=== PATIENT | male | born 1950 | race Hispanic/Latino ===

== ENCOUNTER 2017-05-26 22:44 | Inpatient (IN) | payer OTHER ==
[~2017-05-26] VITALS: Ht 175.3 cm; Wt 93.4 kg
[~2017-05-26 22:44] MED LIST: ASPIR 8181 MG PO; ATORVASTATIN CA80 MG PO; BACTRIM DS TAB1 EACH PO; CARVEDILOL6.25 MG PO; CEPHALEXIN500 MG PO; CIPRO500 MG PO; CLINDAMYCIN HC150 MG PO; CLOPIDOGREL75 MG PO; FAMOTIDINE20 MG PO; FERROUS SULFAT325 MG PO; FLOMAX0.4 MG PO; FUROSEMIDE20 MG PO; GABAPENTIN100 MG PO; HYDRALAZINE HCL10 MG PO; ISOSORBIDE MONO30 MG PO; LANTUS100 UNITS/ SQ; LEVAQUIN500 MG PO; LISINOPRIL20 MG PO; MECLIZINE HCL12.5 MG PO; METOLAZONE5 MG PO; NITROSTAT0.4 MG SL; NOVOLIN R100 UNIT/1 SQ; PENTOXIFYLLINE400 MG PO; POTASSIUM CHLO10 ME1 PO; TYLENOL WITH C1 EACH PO; VITAMIN D5000 UNIT PO; ZAROXOLYN PO; ZESTRIL20 MG PO
--- OUTSIDE RECORDS SUMMARY | 2017-05-26 22:49 | XMS REPORT ---
Author Author [facility] Address Unknown Phone Unavailable Care Team Providers Care Public Records Officer Name Role Phone ANABELL MASON Unavailable Unavailable Problems This patient has no known problems. Allergies, Adverse Reactions, Alerts This patient has no known allergies or adverse reactions. Medications This patient has no known medications. Results Test Description Test Time Test Comments Text Results Atomic Results Result Comments CT BRAIN WO [place] [address] Patient Name: EDWIGE HORVATH MR #: [id number] : 1950 Age/Sex: 66/M Req # : [id number] [facility] Physician: Ordered by: ANABELL MASON MD Report #: [id number] Location: ER Room/Bed: Procedure: [id number] CT/CT BRAIN WO Exam Date: Exam Time: REPORT STATUS: Signed History:Hyperglycemia, altered mental status Comparison studies:None Technique: Axial images were obtained from the skull base to the vertex. Coronal and sagittal images reconstructed from the axial data. Intravenous contrast: None Findings: Scalp/skull: No abnormalities. Extra-axial spaces: No masses. No fluid collections. Brain sulci: Mildly prominent. Ventricles: Mild compensatory dilatation. No hydrocephalus. Parenchyma: A punctate chronic lacunar insult is centered in the left lia.. No masses, hemorrhage, acute or chronic cortical vascular insults. Sellar/suprasellar region: No abnormalities. Craniocervical junction: Patent foramen magnum. No Chiari one malformation. Incidental findings: Subtle atherosclerotic calcifications in the carotid siphons and left vertebral artery. Subtle mucosal thickening in the ethmoid air cells Impression: No acute abnormalities. Chronic findings: 1. Mild generalized volume loss. 2. Punctate lacunar insult in the left lia. Signed by: Dr. Niraj Jacome M.D. on 03/04/2017 11:10 PM Dictated By: NIRAJ JACOME MD, MD 09 Transcribed By: DEMETRIO on 03/04/172309 COPY TO: ANABELL MASON MD CHEST SINGLE (PORTABLE) [place] [address] Patient Name: EDWIGE HORVATH MR #: [id number] : 1950 Age/Sex: 66/M Req #: [id number] Adm Physician: Ordered by: GODFREY GUILLAUME Report #: [id number] Location: ER Room/Bed: Procedure: [id number] DX/CHEST SINGLE (PORTABLE) Exam Date: 03/04/17 Exam Time: 2019 REPORT STATUS: Signed EXAM: CHEST SINGLE (PORTABLE), AP 1 view DATE: 03/04/2017 7:58 PM Time stamp on exam: 2015 hours INDICATION: Cough, shortness of breath COMPARISON: None FINDINGS: LINES/TUBES: None LUNGS: No consolidations or edema. PLEURA: No effusions or pneumothorax. HEART AND MEDIASTINUM: Stable mild cardiac enlargement. Stable prominence of the right central pulmonary arteries. BONES AND SOFT TISSUES: No acute findings. IMPRESSION: No acute thoracic abnormality. Signed by: Dr. Madison Stallings M.D. on 03/04/2017 8:38 PM Dictated By: MADISON STALLINGS MD 37 Transcribed By: DEMETRIO on 2037 COPY TO: GODFREY GUILLAUME
[2017-05-26] MEDS ORDERED: DIATRIZOATE MEGL/DIATRIZOA SOD 30 ML BTL PO ONE (23:23)
[2017-05-27 00:06] LABS: BASOPHILS % 0.6 % (0.0-1.0); EOSINOPHILS # (AUTO) 0.2 (0.0-0.4); EOSINOPHILS % 2.4 % (0.0-6.0); HEMATOCRIT 29.5 % (38.2-49.6); HEMOGLOBIN 9.5 g/dL (14.0-18.0); LYMPHOCYTES # (AUTO) 0.9 (1.0-3.2); LYMPHOCYTES % 13.8 % (18.0-39.1); MEAN CORPUSCULAR HEMOGLOBIN 31.1 pg (28-32); MEAN CORPUSCULAR HGB CONC 32.2 g/dL (31-35); MEAN CORPUSCULAR VOLUME 96.7 fL (81-99); MONOCYTES # (AUTO) 0.6 (0.2-0.8); MONOCYTES % 9.1 % (4.4-11.3); NEUTROPHILS # (AUTO) 4.7 (2.1-6.9); NEUTROPHILS % 73.8 % (38.7-80.0); PLATELET COUNT 173 x10e3/uL (140-360); RED BLOOD COUNT 3.05 x10e6/uL (4.3-5.7); RED CELL DISTRIBUTION WIDTH 14.9 % (11.7-14.4)
[2017-05-27 00:21] LABS: ALBUMIN 3.1 g/dL (3.5-5.0); ALBUMIN/GLOBULIN RATIO 0.8 (0.8-2.0); ANION GAP 11.5 mmol/L (8-16); CALCIUM 8.3 mg/dL (8.4-10.2); CREATININE, SERUM 3.53 mg/dL (0.72-1.25)
[2017-05-27 00:23] LABS: POTASSIUM 5.5 mmol/L (3.5-5.1)
--- NOTE | 2017-05-27 01:13 | Diagnostic Imaging Report ---
EXAM: CT ABDOMEN/PELVIS WO DATE: 05/26/2017 11:12 PM INDICATION: Left-sided abdominal pain COMPARISON: 04/01/2015 TECHNIQUE: The abdomen and pelvis were scanned using a multidetector helical scanner. Coronal and sagittal reformations were obtained. Routine protocol performed. IV Contrast: None Oral contrast was given FINDINGS: Lack of IV contrast decreases sensitivity in evaluating abdominal and pelvic organs. LOWER THORAX: Cardiomegaly with coronary artery disease. Small bilateral effusions. LIVER/BILIARY: No masses. No ductal dilatation. GALLBLADDER: Contracted gallbladder with markedly thickened edematous wall, nonspecific. SPLEEN: Unremarkable PANCREAS: Unremarkable ADRENALS: Stable size of 1.1 cm right adrenal nodule, though with indeterminate attenuation on today's study (HU 27). KIDNEYS: No hydronephrosis. Extensive vascular calcifications. GI TRACT: Postsurgical changes status post right hemicolectomy without evidence of obstruction.. VESSELS: Diffuse vascular calcifications. PERITONEUM/RETROPERITONEUM: Mild abdominal and pelvic free fluid. LYMPH NODES: No lymphadenopathy REPRODUCTIVE ORGANS/BLADDER: Marked bladder wall thickening, which appears increased from prior. SOFT TISSUES: Unremarkable BONES: Scattered degenerative changes, worse at L5-S1. IMPRESSION: 1. No acute abnormality to explain left abdominal pain. 2. Thickened edematous gallbladder wall, which is nonspecific and may be reactive in the setting of volume status or right heart failure. 3. Marked circumferential bladder wall thickening, which appears increased from prior. Correlate with urinalysis or evidence of cystitis. Signed by: Dr Niya Dougherty MD on 05/27/2017 1:09 AM
[2017-05-27 01:36] LABS: BILIRUBIN,URINE NEGATIVE (NEGATIVE); CLARITY,URINE SL CLOUDY (CLEAR); COLOR,URINE YELLOW (YELLOW); KETONES,URINE NEGATIVE (NEGATIVE); LEUKOCYTE ESTERASE ,URINE TRACE (NEGATIVE); NITRITE,URINE NEGATIVE (NEGATIVE); PROTEIN,URINE DIPSTICK 3+ (NEGATIVE); URINE UROBILINOGEN 0.2 mg/dL (0.2 - 1)
[2017-05-27 01:45] LABS: BACTERIA,URINE FEW /HPF; EPITHELIAL CELLS,URINE FEW /LPF
[2017-05-27] MEDS ORDERED: FAMOTIDINE20 MG PO (02:56)
[2017-05-27] MEDS ORDERED: CARVEDILOL3.125 MG PO (02:56)
[2017-05-27] MEDS ORDERED: ISOSORBIDE DINI20 MG PO (02:56)
[2017-05-27] MEDS ORDERED: FLOMAX0.4 MG PO (02:56)
[2017-05-27] MEDS ORDERED: DEXTROSE 50% SYRINGE 50 ML IV PRN (03:00)
[2017-05-27] MEDS ORDERED: ONDANSETRON HCL INJ 2 MG/ML VIAL IV PRN ×2 (03:00→11:00)
[2017-05-27] MEDS ORDERED: MORPHINE SULFATE 2 MG/ML SYR IV PRN (03:00)
[2017-05-27] MEDS ORDERED: LACTULOSE SYRUP 20 GM/30 ML UDC PO ONE (03:00)
[2017-05-27] MEDS ORDERED: SOD POLYSTYRENE SULFONATE SUSP 15 GM/60 ML BTL PO ONE (03:00)
[2017-05-27] MEDS ORDERED: SODIUM CHLORIDE FLUSH 10 ML SYR INJ PRN (03:00)
[2017-05-27] MEDS: CEFTRIAXONE SOD 1 GM VIAL IV SCH (03:51)
[2017-05-27] MEDS ORDERED: HYDRALAZINE HCL 25 MG TAB ONE (05:45)
[2017-05-27] MEDS ORDERED: HYDRALAZINE HCL 10 MG TAB PO SCH (06:00)
[2017-05-27] MEDS ORDERED: HYDRALAZINE HCL 10 MG TAB PO PRN (06:00)
[2017-05-27] MEDS: INSULIN REGULAR, HUMAN 100 UNIT/1 ML 3ML VIAL SQ SCH ×4 (08:35→20:44)
[2017-05-27] MEDS: ISOSORBIDE DINITRATE 20 MG TAB PO SCH (08:52)
[2017-05-27] MEDS: CLOPIDOGREL BISULFATE 75 MG TAB PO SCH (08:52)
[2017-05-27] MEDS: FAMOTIDINE 20 MG TAB PO SCH ×2 (08:52→17:40)
[2017-05-27] MEDS: TAMSULOSIN HCL 0.4 MG CAP PO SCH (08:52)
[2017-05-27] MEDS: ATORVASTATIN 40 MG TAB PO SCH (08:52)
[2017-05-27] MEDS: ASPIRIN 81 MG CHEW TAB PO SCH (08:52)
[2017-05-27] MEDS: FUROSEMIDE 20 MG TAB PO SCH ×2 (08:52→17:40)
[2017-05-27] MEDS ORDERED: ACETAMINOPHEN 325 MG TAB PO PRN (11:00)
[2017-05-27] MEDS ORDERED: MECLIZINE HCL 12.5 MG TAB PO PRN (11:00)
[2017-05-27] MEDS ORDERED: MELATONIN 5 MG TABLET PO PRN (11:00)
[2017-05-27] MEDS ORDERED: FUROSEMIDE INJ 10 MG/ML 4 ML VIAL IV ONE (11:15)
[2017-05-27] MEDS ORDERED: SCOPOLAMINE 1.5 MG PATCH TOP SCH (11:30)
[2017-05-27] MEDS: SODIUM CHLORIDE 0.9% 1000ML 1,000 ML IV SCH ×2 (12:14→23:30)
--- NOTE | 2017-05-27 12:35 | History and Physical ---
DATE OF : 1950 CHIEF COMPLAINT: Abdominal pain, positive for flatus. HPI: This is a 67-year-old male morbidly obese, type 2 diabetic, hypertensive, medical noncompliant, who comes into the ED after recently discharged from [place] due to dizziness, comes in last night after eating dinner, complains of abdominal distention and passing gas. Patient reports about 4 hours after his abdominal pain he began to have some diarrhea with associated nausea and vomited once. He denies any fever at home. Denies any recent sickness, cough, and congestion. Patient also reports having underlying CKD which he follows up with Dr. Nugent, his boxing machine operator. Patient seen and evaluated at bedside. Patient ate his breakfast with no issues. He denies any abdominal pain or any diarrhea, nausea, or vomiting. REVIEW OF SYSTEMS: Pertinent positives: Abdominal pain, nausea, vomiting, positive for flatus. Pertinent negatives: Denies any chest pain, palpitations, dysuria, hematuria, frequency, urgency, lightheadedness, dizziness, headache, shortness of breath, fever, musculoskeletal pain, or any other complaints. The rest of the 14-point review of systems have been reviewed with the patient and are negative. ALLERGIES: NO KNOWN DRUG ALLERGIES. HOME MEDICATIONS: Lipitor 80 mg daily, Coreg 3.125 mg p.o. at bedtime, aspirin 81 mg daily, Plavix 75 mg daily, Pepcid 20 mg p.o. b.i.d., Lasix 20 mg p.o. b.i.d., hydralazine 50 mg p.o. t.i.d., Levemir 34 units subQ at night, and isosorbide dinitrate 30 mg p.o. daily. PAST MEDICAL HISTORY: Hypertension, hyperlipidemia, type 2 diabetes, and CKD stage 4 for which he follows up with Dr. Nugent, his primary boxing machine operator. SURGICAL HISTORY: None. FAMILY HISTORY: Hypertension and diabetes. SOCIAL HISTORY: No drugs. No alcohol. Does not smoke. Good social support. Retired. VITAL SIGNS: Temperature 97.9, pulse 57, respiratory rate 16, blood pressure 159/76, and pulse ox 100% on room air. LAB FINDINGS: White count of 6.3, hemoglobin 9.5, hematocrit 30, and platelets of 173. Chemistry: Sodium 135, potassium 5.5, chloride is 103, bicarb 26, anion gap of 11, BUN 56, creatinine is 3.5, GFR 17, glucose 221, and calcium 8.3. LFTs normal. Total protein 7.2, albumin 3.1, lipase 29, and amylase 82. Urinalysis: Slightly cloudy 3+ protein, 1+ glucose, negative nitrite, and trace leukocyte esterase. Microbiology: Urine culture pending. IMAGING STUDIES: CT abdomen and pelvis shows no acute abnormality. Thickened, edematous gallbladder wall, but very nonspecific, shows no inflammation. Patient does not complain of right upper quadrant abdominal pain. LFTs are normal. There is some questionable concern of cystitis. PHYSICAL EXAMINATION GENERAL: Not in acute distress. Alert and oriented x3. Cooperative on exam. HEENT: Head is normocephalic and atraumatic. Eyes: Pupils are equal, round, and reactive to light bilaterally. The extraocular movements are intact bilaterally. NECK: Supple. Good range of motion. Throat: No evidence of any erythema or exudates in the posterior pharynx. Has poor dentition. PULMONARY: Clear to auscultation bilaterally. No wheezing, no rales, no rhonchi, and no crackles appreciated. CARDIOVASCULAR: Positive S1 and S2. No murmurs, rubs or gallops appreciated. ABDOMEN: Soft, nondistended. Nontender to palpation. Bowel sounds are present. MUSCULOSKELETAL: Strength is 5/5 throughout. No evidence of any musculoskeletal deficit on examination. No weakness appreciated. NEUROLOGIC: Cranial nerves II through XII are grossly intact. No evidence of any neurological deficit on exam. SKIN: Intact. Warm to touch. Good capillary refill. PSYCHIATRIC: Normal affect and mood. EXTREMITIES: No edema. Has good range of motion throughout. ASSESSMENT AND PLAN 1. Abdominal pain with associated nausea, vomiting, and diarrhea, likely viral gastroenteritis -- currently symptoms are all resolved. Put on pain control. CT abdomen and pelvis reviewed. No acute findings seen. IV fluids, pain control, and regular renal diet. 2. Chronic kidney disease stage 4 with mild hyperkalemia -- Lasix 40 mg IV x1, and lactulose, his baseline creatinine is around 3 to 3.5. 3. Possible urinary tract infection -- Urinalysis is not consistent with urinary tract infection, but has been started with IV antibiotics by the ER physician. Urine culture no growth today at this time. We will continue to monitor. 4. Anemia with chronic kidney disease -- his hemoglobin 9.7, it is stable. We will repeat labs in the morning. 5. Type 2 diabetes. -Long acting Levemir and insulin sliding scale. 6. Prophylaxis: heparin. 7. Fluids, electrolytes and nutrients: Low dose IV fluids. Diabetic diet. 8. Disposition -- Make an observation. Renal has been consulted for his underlying CKD by the ER physician. 9. Discharge planning: Likely discharge home tomorrow. Patient is stable, doing well with no other complaints, tolerating diet. Job#: [id number] VAS
[2017-05-27 16:10] VITALS: BP 159/76
[2017-05-27 16:12] VITALS: BP 159/76
[2017-05-27 16:38] VITALS: BP 143/80
[2017-05-27 19:00] VITALS: BP 173/82
[2017-05-27 20:00] VITALS: BP 173/82
[2017-05-27] MEDS: HYDRALAZINE HCL 25 MG TAB PO SCH (20:45)
[2017-05-27] MEDS ORDERED: INSULIN DETEMIR 100 UNIT/ML PEN SQ SCH (21:00)
[2017-05-27] MEDS ORDERED: CARVEDILOL 3.125 MG TAB PO SCH (21:00)
[2017-05-28] VITALS: BP 135/69
[2017-05-28] MEDS: CEFTRIAXONE SOD 1 GM VIAL IV SCH (03:03)
[2017-05-28 04:00] VITALS: BP 151/72
[2017-05-28] MEDS: HYDRALAZINE HCL 25 MG TAB PO SCH (05:12)
[2017-05-28 05:35] LABS: BASOPHILS % 0.5 % (0.0-1.0); EOSINOPHILS # (AUTO) 0.1 (0.0-0.4); EOSINOPHILS % 1.9 % (0.0-6.0); HEMATOCRIT 27.2 % (38.2-49.6); HEMOGLOBIN 8.8 g/dL (14.0-18.0); LYMPHOCYTES # (AUTO) 0.5 (1.0-3.2); LYMPHOCYTES % 8.6 % (18.0-39.1); MEAN CORPUSCULAR HEMOGLOBIN 31.1 pg (28-32); MEAN CORPUSCULAR HGB CONC 32.4 g/dL (31-35); MEAN CORPUSCULAR VOLUME 96.1 fL (81-99); MONOCYTES # (AUTO) 0.5 (0.2-0.8); MONOCYTES % 7.9 % (4.4-11.3); NEUTROPHILS # (AUTO) 4.6 (2.1-6.9); NEUTROPHILS % 80.9 % (38.7-80.0); PLATELET COUNT 154 x10e3/uL (140-360); RED BLOOD COUNT 2.83 x10e6/uL (4.3-5.7); RED CELL DISTRIBUTION WIDTH 14.6 % (11.7-14.4)
[2017-05-28 06:05] LABS: ALBUMIN 2.9 g/dL (3.5-5.0); ALBUMIN/GLOBULIN RATIO 0.8 (0.8-2.0); CALCIUM 8.1 mg/dL (8.4-10.2); CREATININE, SERUM 2.93 mg/dL (0.72-1.25)
[2017-05-28] MEDS: INSULIN REGULAR, HUMAN 100 UNIT/1 ML 3ML VIAL SQ SCH (07:30)
[2017-05-28 07:56] VITALS: BP 149/65
[2017-05-28] MEDS: ASPIRIN 81 MG CHEW TAB PO SCH (08:46)
[2017-05-28] MEDS: TAMSULOSIN HCL 0.4 MG CAP PO SCH (08:46)
[2017-05-28] MEDS: ISOSORBIDE DINITRATE 20 MG TAB PO SCH (08:47)
[2017-05-28] MEDS: FUROSEMIDE 20 MG TAB PO SCH (08:47)
[2017-05-28] MEDS: ATORVASTATIN 40 MG TAB PO SCH (08:47)
[2017-05-28] MEDS: FAMOTIDINE 20 MG TAB PO SCH (08:47)
[2017-05-28] MEDS: CLOPIDOGREL BISULFATE 75 MG TAB PO SCH (08:47)
[2017-05-28 08:55] VITALS: BP 149/65
[2017-05-28] MEDS ORDERED: CEFTRIAXONE SOD 1 GM VIAL IM ONE (09:15)
[2017-05-28] MEDS ORDERED: HYDRALAZINE HCL 25 MG TAB PO PRN (09:15)
[2017-05-28] MEDS ORDERED: LANTUS 3ML100 UNITS/ SQ (11:23)
[2017-05-28 12:06] VITALS: BP 129/59
[2017-05-28] MEDS ORDERED: LANTUS 3ML100 UNITS/ ×2 (12:29→12:30)
--- NOTE | 2017-05-28 14:18 | Consultation ---
DATE OF CONSULTATION: HISTORY OF PRESENT ILLNESS: A 67-year-old [place] gentleman well known to our nephrology service. Has history of CKD-3, hypertension, coronary artery disease, congestive heart failure, BPH, hypertension. Presented with possible diarrhea and abdominal discomfort. States his stomach was bloating. He thought he was going to have the , currently laying supine. No apparent distress. Hypertensive with the blood pressure of 178/86. Pulse rate 80. Respiratory rate 16. Head and neck, cornea clear. Mucosa dry. Lungs relatively clear. Heart, S1, S2 audible. Abdomen, otherwise soft, nontender. Lower extremities no edema. Laboratory test earlier shows a potassium 5.5. Creatinine was 3.5. Patient was given. Kayexalate lactulose. Repeat potassium shows definite improvement with a potassium of 4.3. Bicarbonate 26. Creatinine 3.5. Hemoglobin 9.5. CURRENT MEDICATIONS 1. Carvedilol 3.125 once a day. 2. Isosorbide 30 mg daily. 3. Ondansetron. 4. Plavix. 5. Flomax. 6. Scopolamine. 7. Meclizine. 8. Atorvastatin. 9. Hydralazine 50 mg p.o. q. 8. 10. Furosemide 40 b.i.d. 11. Hydralazine. 12. Melatonin 5 mg bedtime. 13. Ceftriaxone 1 g IV q.24. EXAM GENERAL: Awake, alert, laying supine. No apparent distress. VITALS: Blood pressure as above. HEAD AND NECK: Cornea clear. LUNGS: Relatively clear. HEART: S1, S2 audible. ABDOMEN: Otherwise soft, nontender. LOWER EXTREMITY EXAMINATION: Shows no edema. IMPRESSIONS 1. Underlying chronic kidney disease. 2. Hypertension. 3. Prior cerebrovascular accident. 4. Multiple comorbidities. 5. Has a relatively poor ejection fraction of 20%, has had the AICD. Currently no overt evidence of congestive heart failure. 6. Has prior toe amputation, prior stents and prior prostate surgery and partial colon resection. Please see orders. Job#: [id number] CQ
--- NOTE | 2017-05-28 17:32 | Discharge Summary ---
FINAL DISCHARGE DIAGNOSIS: 1. Abdominal pain likely due to underlying viral gastroenteritis. 2. Nausea, vomiting, diarrhea due to viral gastroenteritis. 3. Chronic kidney disease stage 4. 4. Mild hyperkalemia. 5. Urinary tract infection. 6. Anemia of chronic disease. 7. Type-2 diabetes. CONSULTANTS: None. VITAL SIGNS: Temperature is 97.3, pulse 57, respiratory rate is 18, blood pressure 149/65, pulse ox is 100% on room air. LAB FINDINGS: Show white count 5.7, hemoglobin 8.8, hematocrit is 27, platelets of 154. Chemistry: Sodium 140, potassium is 4, chloride 105, bicarbonate 25, anion gap of 14, BUN is 50, creatinine is 2.9, glucose is 82. Calcium 8.1. LFTs were normal. Albumin 2.9, lipase was 29. Urinalysis: 1+ glucose, negative nitrite, trace leukocyte esterase. MICROBIOLOGY: Showed some gram-negative rods, likely all contaminate. IMAGING STUDIES: CT abdomen and pelvis showed no acute abnormality to explain left abdominal pain. Thickened, edematous gallbladder wall which is nonspecific and may be reactive in the setting of volume status of right heart failure. Marked of bladder wall thickening which appears increased from prior. Correlate with urinalysis for possible cystitis. HOSPITAL COURSE: This is a 67-year-old male who came into the ED with complaints of nausea, vomiting, decreased oral intake, as well as abdominal pain. Patient was admitted overnight and monitored very closely. CT imaging results above showed no acute findings. Patient's symptoms resolved. Patient had no more nausea, vomiting or diarrhea. It is presumed that the patient had some viral gastroenteritis, now with improvement. Patient is known to have chronic kidney disease stage 4 with mild hyperkalemia. He was given some fluids as well as some Lasix with much improvement and his potassium was normal prior to discharge home. His baseline creatinine was 3 to 3.5. 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 He also was found possibly to have a UTI, and his urinalysis is consistent likely due to a contaminate, but to his prior history of BPH the patient will be discharged on oral Cipro 500 mg 1 capsule twice daily for 10 days. He needs to follow up with his primary care physician. He also has known anemia of chronic disease. He also has known type-2 diabetes in which his glucose levels were much lower and in which he was adjusted prior to being discharged to home. On the day of discharge, patient was doing well with no other complaints and denies any more abdominal pain. On the day of discharge, vital signs stable, labs reviewed and stable. Patient seen and evaluated and examined thoroughly on the day of discharge with no other complaints. Patient verbalized understanding and agrees with plan of care to follow up accordingly as an outpatient with his primary care physician in one week. DISCHARGE MEDICATIONS: See medicine reconciliation form including Cipro 500 mg 1 capsule p.o. twice daily for 10 days for possible underlying cystitis. DISPOSITION: To home. CONDITION: Stable. FOLLOWUP: With your primary care physician in one week. In the event of any worsening symptoms, patient advised to come back to the ED for further evaluation. Discharge summary took greater than 35 minutes. JAIMIE FREIRE MD Job#: [id number] EV
== END 2017-05-28 12:42 | disposition home or self-care (01) | DRG 392 ==
LOC: ER 22:44 → ERHOLD 05-27 02:48 → IMCU 05-27 13:48
PROVIDERS: ADMIT Internal Medicine; ATTEND Internal Medicine
DX: A08.4 Viral intestinal infection, unspecified (principal); E11.22 Type 2 diabetes mellitus with diabetic chronic kidney disease; I13.0 Hypertensive heart and chronic kidney disease with heart failure and stage 1 through stage 4 chronic kidney disease, or unspecified chronic kidney disease; I50.9 Heart failure, unspecified; N18.4 Chronic kidney disease, stage 4 (severe); N39.0 Urinary tract infection, site not specified; Z79.4 Long term (current) use of insulin; E87.5 Hyperkalemia; E11.40 Type 2 diabetes mellitus with diabetic neuropathy, unspecified; D63.1 Anemia in chronic kidney disease; N40.0 Benign prostatic hyperplasia without lower urinary tract symptoms; Z86.73 Personal history of transient ischemic attack (TIA), and cerebral infarction without residual deficits; Z95.810 Presence of automatic (implantable) cardiac defibrillator; Z95.5 Presence of coronary angioplasty implant and graft; Z91.19 Patient's noncompliance with other medical treatment and regimen; E66.01 Morbid (severe) obesity due to excess calories; Z79.82 Long term (current) use of aspirin; Z79.02 Long term (current) use of antithrombotics/antiplatelets; Z68.30 Body mass index [BMI] 30.0-30.9, adult
CPT/HCPCS: 36415; 74176; 80053; 81001; 82150; 82948; 83690; 84132; 85025; 87086; 96374; 99284; J0696; J1940; J2270; J7030

== ENCOUNTER 2018-07-26 20:17 | Emergency (ER) | payer OTHER ==
[~2018-07-26] VITALS: Ht 175.3 cm; Wt 93.4 kg
[~2018-07-26 20:17] MED LIST changes: +CARVEDILOL3.125 MG PO; +ISOSORBIDE DINI20 MG PO; +LANTUS 3ML100 UNITS/; +LANTUS 3ML100 UNITS/ SQ
--- OUTSIDE RECORDS SUMMARY | 2018-07-26 20:22 | XMS REPORT | Continuity of Care Document ---
Author Author [facility] Interface Address Unknown Phone Unavailable Problems Problem Status Onset Date Classification Date Reported Comments Source Acute kidney failure, unspecified 06/17/2017 09/14/2017 [facility] CHAI, GENERALIZED WEAKNESS Active 06/07/2017 [facility] FALL Active 06/07/2017 [facility] STROKE-LIKE SYMPTOMS Active 02/08/2017 [facility] SLURRED SPEECH/ GAIT ABNORMALITY Active 02/08/2017 [facility] 569.89 Active 10/29/2014 [facility] Type 2 diabetes mellitus with hypoglycemia without coma 09/14/2017 [facility] Dehydration 09/14/2017 [facility] Hypertensive chronic kidney disease with stage 1 through stage 4 chronic kidney disease, or unspecified chronic kidney disease 09/14/2017 [facility] Chronic kidney disease, unspecified 09/14/2017 [facility] Type 2 diabetes mellitus with diabetic chronic kidney disease 09/14/2017 [facility] Fall from bed, initial encounter 09/14/2017 [facility] Zoster without complications 09/14/2017 [facility] Hyperlipidemia, unspecified 09/14/2017 [facility] Atherosclerotic heart disease of [place] coronary artery without angina pectoris 09/14/2017 [facility] Personal history of transient ischemic attack , and cerebral infarction without residual deficits 09/14/2017 [facility] Personal history of nicotine dependence 09/14/2017 [facility] alf use of aspirin 09/14/2017 [facility] keno terminal operator use of insulin 09/14/2017 [facility] ACUTE KIDNEY FAILURE, UNSPECIFIED Active [facility] WEAKNESS Active [facility] Medications Medication Details Route Status Patient Instructions Ordering Provider Order Date Source Morphine 2 mg, 1 mL, Route: IVP, Drug form: INJ, Q4H, Dosing Weight 95.597, kg, PRN Pain Score 7-10, Start date: 06/08/17 10:32:00 TICKET COLLECTOR OR USHER, Duration: 30 day, Stop date: 07/08/17 10:31:00 CDTNotes: (Same as:MORPhine Sulfate) Inactive 06/08/2017 [facility] Hydralazine 10 mg, 0.5 mL, Route: IVP, Drug form: INJ, Q4H, Dosing Weight 95.597, kg, PRN Elevated BP, Start date: 06/08/17 10:09:00 TICKET COLLECTOR OR USHER, Duration: 30 day, Stop date: 07/08/17 10:08:00 CDTNotes: (Same as: Joseph perdomo) Push over 5 minutes Inactive 06/08/2017 [facility] Saline Flush 0.9% 10 ml, Route: IVP, Drug Form: INJ, Dosing Weight 95.597, kg, Q12H, Start date: 06/07/17 21:00:00 TICKET COLLECTOR OR USHER, Duration: 30 day, Stop date: 07/07/17 9:00:00 CDTNotes: (Same as: BD Posiflush) No Longer Active 06/08/2017 [facility] atorvastatin 80 mg, 2 tab, Route: PO, Drug form: TAB, Bedtime, Dosing Weight 95.597, kg, Start date: 06/07/17 21:00:00 TICKET COLLECTOR OR USHER, Duration: 30 day, Stop date: 07/06/17 21:00:00 CDTNotes: (Same as: Lipitor) No Longer Active 06/08/2017 [facility] Acyclovir 750 mg, Route: IV, Drug form: PDR/INJ, [id number], Dosing Weight 95.597, kg, Start date: 06/07/17 21:00:00 TICKET COLLECTOR OR USHER, Duration: 7 day, Stop date: 06/13/17 21:00:00 CSTNotes: (Same as: Zovirax) For adult patients only: Round to nearest 50 mg per Medical Staff approval MEDICATION WASTE Product Size: 500 mg Product Wasted: 250 mg No Longer Active 06/08/2017 [facility] Morphine 4 mg, 1 mL, Route: IVP, Drug form: SOLN, Q4H, Dosing Weight 95.597, kg, PRN Pain Score 7-10, Start date: 06/07/17 20:16:00 TICKET COLLECTOR OR USHER, Duration: 30 day, Stop date: 07/07/17 20:15:00 CDTNotes: (Same as:MORPhine Sulfate) No Longer Active 06/08/2017 [facility] heparin 5,000 unit, 1 mL, Route: SUB-Q, Drug form: INJ, Q8H-06, Dosing Weight 95.597, kg, (For patients weighing Notes: porcine heparin No Longer Active 06/07/2017 [facility] valacyclovir 1,000 mg, 2 tab, Route: PO, Drug form: TAB, [id number], Dosing Weight 95.597, kg, Priority: NOW, Start date: 06/07/17 10:47:00 TICKET COLLECTOR OR USHER, Duration: 7 day, Stop date: 06/13/17 10:47:00 CSTNotes: (Same As: Valtrex) Inactive 06/07/2017 [facility] Aspirin 300 MG Rectal Suppository 300 mg, 1 supp, Route: AR, Drug form: SUPP, ONCE, Dosing Weight 95.597, kg, Priority: NOW, Start date: 06/07/17 10:40:00 TICKET COLLECTOR OR USHER, Stop date: 06/07/17 10:40:00 CSTNotes: Refrigerate. Inactive 06/07/2017 [facility] Aspirin 81 MG Enteric Coated Tablet 81 mg, 1 tab, Route: PO, Drug form: ECTAB, Q24H, Dosing Weight 95.597, kg, Start date: 06/07/17 10:00:00 TICKET COLLECTOR OR USHER, Duration: 30 day, Stop date: 07/06/17 10:00:00 CDTNotes: Do not crush or chew. (Same As: Ecotrin) No Longer Active 06/07/2017 [facility] Glucagon 1 mg, Route: IM, Drug form: PDR/INJ, PRN, Dosing Weight 95.597, kg, PRN Blood Glucose Results, Start date: 06/07/17 9:48:00 TICKET COLLECTOR OR USHER, Duration: 30 day, Stop date: 07/07/17 10:47:00 CDT No Longer Active 06/07/2017 [facility] Dextrose 50% Syringe 25 gm, 50 mL, Route: IVP, Drug Form: INJ, Dosing Weight 95.597, kg, PRN, PRN Blood Glucose Results, Start date: 06/07/17 9:48:00 TICKET COLLECTOR OR USHER, Duration: 30 day, Stop date: 07/07/17 10:47:00 CDT No Longer Active 06/07/2017 [facility] Insulin Lispro 4 unit, 0.04 mL, Route: SUB-Q, Drug form: SOLN, Sliding Scale, Dosing Weight 95.597, kg, PRN Blood Glucose Results, Start date: 06/07/17 9:48:00 TICKET COLLECTOR OR USHER, Duration: 30 day, Stop date: 07/07/17 10:47:00 CDTNo naldo: (Same as: Humalog ) Roll in palms of hands gently; Do not shake `vigorously. "Single Patient Use Only " WASTE: F/P - Black; E - Municipal Trash Bin Stable for 28 days at room temperature. Expires in days from Date No Longer Active 06/07/2017 [facility] Saline Flush 0.9% 10 ml, Route: IVP, Drug Form: INJ, Dosing Weight 95.597, kg, PRN, PRN Line Flush, Start date: 06/07/17 9:47:00 TICKET COLLECTOR OR USHER, Duration: 30 day, Stop date: 07/07/17 10:46:00 CDTNotes: (Same as: BD Posiflush) No Longer Active 06/07/2017 [facility] Saline Flush 0.9% 10 ml, Route: IVP, Drug Form: INJ, Dosing Weight 87.5, kg, PRN, PRN Line Flush, Start date: 06/07/17 7:07:00 TICKET COLLECTOR OR USHER, Duration: 30 day, Stop date: 07/07/17 8:06:00 CDTNotes: (Same as: BD Posiflush) No Longer Active 06/07/2017 [facility] Sodium Chloride 0.9% IV 1,000 mL 1,000 mL, Rate: 125 ml/hr, Infuse over: 8 hr, Route: IV, Dosing Weight 87.5 kg, Total Volume: 1,000, Start date: 06/07/17 7:07:00 TICKET COLLECTOR OR USHER, Duration: 30 day, Stop date: 07/07/17 7:06:00 CDT, 2.08, m2 No Longer Active 06/07/2017 [facility] Ondansetron 4 mg, 2 mL, Route: IVP, Drug form: INJ, Q6H, Dosing Weight 87.5, kg, PRN Nausea & Vomiting, Start date: 06/07/17 7:07:00 TICKET COLLECTOR OR USHER, Duration: 30 day, Stop date: 07/07/17 7:06:00 CDTNotes: (Same as: Zofran) MEDICATION WASTE Product Size: 4 mg Product Wasted: ___ mg No Longer Active 06/07/2017 [facility] Acetaminophen 650 mg, 2 tab, Route: PO, Drug form: TAB, Q4H, Dosing Weight 87.5, kg, PRN Pain 1-3/Temp > 100.4 F, Start date: 06/07/17 7:07:00 TICKET COLLECTOR OR USHER, Duration: 30 day, Stop date: 07/07/17 7:06:00 CDTNotes: Do not ex ceed 4 gm/day. (Same as: Tylenol) No Longer Active 06/07/2017 [facility] Sodium Chloride 0.9% IV 1,000 mL 1,000 mL, Rate: 75 ml/hr, Infuse over: 13.3 hr, Route: IV, Dosing Weight 87.5 kg, Total Volume: 1,000, Start date: 06/07/17 6:02:00 TICKET COLLECTOR OR USHER, Duration: 30 day, Stop date: 07/07/17 6:01:00 CDT, 2.08, m2 Inactive 06/07/2017 [facility] Lantus 100 units/mL 25 unit, SUB-Q, Bedtime, # 10 mL, 0 Refill(s), Pharmacy: [facility] [id number] Active 02/11/2017 [facility] pneumococcal 13-valent vaccine 0.5 mL, Route: IM, Drug Form: INJ, Daily, Start date: 02/09/17 9:00:00 CDT, Duration: 1 doses or times, Stop date: 02/09/17 9:00:00 CDTNotes: Shake well prior to use (Same as: Prevnar 13) Inactive 02/09/2017 [facility] metolazone 2.5 mg oral tablet 2.5 mg, 1 tab, Route: PO, Drug form: TAB, BID, Dosing Weight 87.5, kg, Start date: 02/09/17 9:00:00 CDT, Duration: 30 day, Stop date: 03/10/17 17:00:00 CSTNotes: (Same as: Zaroxolyn) No Longer Active 02/09/2017 [facility] lisinopril 20 mg, Route: PO, Drug form: TAB, BID, Dosing Weight 87.5, kg, Start date: 02/09/17 9:00:00 CDT, Duration: 30 day, Stop date: 03/10/17 17:00:00 TICKET COLLECTOR OR USHER Inactive 02/09/2017 [facility] gabapentin 300 mg oral capsule 300 mg, 1 cap, Route: PO, Drug form: CAP, Q12H, Dosing Weight 87.5, kg, Start date: 02/09/17 9:00:00 CDT, Duration: 30 day, Stop date: 03/10/17 21:00:00 CSTNotes: (Same as: Neurontin) No Longer Active 02/09/2017 [facility] influenza virus vaccine, inactivated 0.5 mL, Route: IM, Drug Form: SUSP, Daily, Start date: 02/09/17 9:00:00 CDT, Duration: 1 doses or times, Stop date: 02/09/17 9:00:00 CDTNotes: (Same as: Fluzone Quadrivalent, Fluarix Quadrivalent) For 3 years of age and older (0.5 mL IM) Shake well before use Inactive 02/09/2017 [facility] Humalog 10 unit, 0.1 mL, Route: SUB-Q, Drug form: SOLN, TID-Before Meals, Start date: 02/09/17 7:30:00 CDT, Duration: 30 day, Stop date: 03/10/17 16:30:00 CSTNotes: Roll in palms of hands gently; Do not shake `vigorously. (Same as: Humalog ) "Single Patient Use Only " WASTE: F/P - Black; E - Municipal Trash Bin Stable for 28 days at room temperature. Expires in days from Date No Longer Active 02/09/2017 [facility] NovoLOG 10 unit, Route: SUB-Q, Drug form: SOLN, TID-Before Meals, Dosing Weight 87.5, kg, Start date: 02/09/17 7:30:00 CDT, Duration: 30 day, Stop date: 03/10/17 16:30:00 TICKET COLLECTOR OR USHER Inactive 02/09/2017 [facility] ciprofloxacin 500 mg, 1 tab, Route: PO, Drug form: TAB, [id number], Dosing Weight 87.5, kg, Start date: 02/09/17 1:00:00 CDT, Duration: 30 day, Stop date: 03/10/17 13:00:00 TICKET COLLECTOR OR USHER, ABX Indication: Skin/Soft Tissue Infectio nNotes: May interfere w/enteral feedings - Take 1 hr before or 2 hrs after antacids, dairy pdt & minerals. On empty stomach. Inactive 02/09/2017 [facility] Lantus 100 units/mL 25 unit, 0.25 mL, Route: SUB-Q, Drug form: SOLN, Bedtime, Dosing Weight 87.5, kg, Start date: 02/09/17 0:03:00 CDT, Duration: 30 day, Stop date: 03/10/17 21:00:00 CSTNotes: (Same as: Lantus) Do not hold insulin without contacting prescriber WASTE: F/P - Black; E - Municipal Trash Bin "single patient use only" No Longer Active 02/09/2017 [facility] hydrALAZINE 50 mg oral tablet 50 mg, 1 tab, Route: PO, Drug form: TAB, Q8H, Dosing Weight 87.5, kg, Start date: 02/09/17 0:00:00 CDT, Duration: 30 day, Stop date: 03/10/17 16:00:00 TICKET COLLECTOR OR USHER Inactive 02/09/2017 [facility] lisinopril 20 mg oral tablet 20 mg=1 tab, PO, BID, 0 Refill(s) No Longer Active 02/09/2017 [facility] metolazone 2.5 mg oral tablet 2.5 mg=1 tab, PO, BID, 0 Refill(s) Active 02/09/2017 [facility] furosemide 40 mg oral tablet 80 mg=2 tab, PO, QAM, 0 Refill(s) No Longer Active 02/09/2017 [facility] gabapentin 300 mg oral capsule 300 mg=1 cap, PO, BID, 0 Refill(s) No Longer Active 02/09/2017 [facility] ciprofloxacin 500 mg oral tablet 500 mg=1 tab, PO, Q12H, 0 Refill(s) No Longer Active 02/09/2017 [facility] hydrALAZINE 50 mg oral tablet 50 mg=1 tab, PO, Q8H, 0 Refill(s) No Longer Active 02/09/2017 [facility] NovoLOG 100 units/mL 10 unit, SUB-Q, TID-Before Meals, # 10 mL, 0 Refill(s) Active 02/09/2017 [facility] potassium chloride 10 mEq oral tablet, extended release 10 mEq=1 tab, PO, BID, 0 Refill(s) No Longer Active 02/09/2017 [facility] Lantus 100 units/mL 34 units, SUB-Q, Bedtime, 0 Refill(s) No Longer Active 02/09/2017 [facility] atorvastatin 80 mg oral tablet 80 mg=1 tab, PO, Daily, 0 Refill(s) Active 02/09/2017 [facility] clindamycin 150 mg, PO, Q6H, 2 capsules, 0 Refill(s) Active 02/09/2017 [facility] aspirin 81 mg tablet, chewable 81 mg=1 tab, CHEW, Daily, 0 Refill(s) Active 02/09/2017 [facility] clindamycin 300 mg, 1 cap, Route: PO, Drug form: CAP, [id number], Dosing Weight 104.545, kg, Start date: 02/08/17 21:00:00 CDT, Duration: 5 day, Stop date: 02/13/17 15:00:00 TICKET COLLECTOR OR USHER, ABX Indication: Skin/Soft Tissue Inf ectionNotes: (Same As: Cleocin) No Longer Active 02/09/2017 [facility] Lipitor 80 mg, 2 tab, Route: PO, Drug form: TAB, Bedtime, Dosing Weight 104.545, kg, Start date: 02/08/17 21:00:00 CDT, Duration: 30 day, Stop date: 03/09/17 21:00:00 CSTNotes: (Same as: Lipitor) No Longer Active 02/09/2017 [facility] Saline Flush 0.9% 10 ml, Route: IVP, Drug Form: INJ, Dosing Weight 104.545, kg, Q12H, Start date: 02/08/17 21:00:00 CDT, Duration: 30 day, Stop date: 03/10/17 9:00:00 CSTNotes: (Same as: BD Posiflush) No Longer Active 02/09/2017 [facility] aspirin 81 mg tablet, enteric coated 81 mg, 1 tab, Route: PO, Drug form: ECTAB, Daily, Dosing Weight 104.545, kg, Start date: 02/08/17 21:00:00 CDT, Duration: 30 day, Stop date: 03/10/17 9:00:00 CSTNotes: Do not crush or chew. (Same As: Ecotrin) No Longer Active 02/09/2017 [facility] hydrALAZINE 10 mg, 0.5 mL, Route: IVP, Drug form: INJ, Q6H, Dosing Weight 104.545, kg, PRN Hypertension, Start date: 02/08/17 20:35:00 CDT, Duration: 30 day, Stop date: 03/10/17 20:34:00 TICKET COLLECTOR OR USHER, FOR sbp > 180 MMNotes: (Same as: Apresoline) Push over 5 minutes No Longer Active 02/09/2017 [facility] insulin lispro 5 unit, 0.05 mL, Route: SUB-Q, Drug form: SOLN, TID-Before Meals, Dosing Weight 104.545, kg, PRN Blood Glucose Results, Start date: 02/08/17 20:35:00 CDT, Duration: 30 day, Stop date: 03/10/17 20:34: 00 CSTNotes: Roll in palms of hands gently; Do not shake `vigorously. (Same as: Humalog ) "Single Patient Use Only " WASTE: F/P - Black; E - SpeakingPal Trash Bin Stable for 28 days at room temperature. Expires in days from Date No Longer Active 02/09/2017 [facility] glucagon 1 mg, Route: IM, Drug form: PDR/INJ, PRN, Dosing Weight 104.545, kg, PRN Blood Glucose Results, Start date: 02/08/17 20:35:00 CDT, Duration: 30 day, Stop date: 03/10/17 19:34:00 TICKET COLLECTOR OR USHER No Longer Active 02/09/2017 [facility] Dextrose 50% Syringe 25 gm, 50 mL, Route: IVP, Drug Form: INJ, Dosing Weight 104.545, kg, PRN, PRN Blood Glucose Results, Start date: 02/08/17 20:35:00 CDT, Duration: 30 day, Stop date: 03/10/17 19:34:00 TICKET COLLECTOR OR USHER No Longer Active 02/09/2017 [facility] Saline Flush 0.9% 10 ml, Route: IVP, Drug Form: INJ, Dosing Weight 104.545, kg, PRN, PRN Line Flush, Start date: 02/08/17 20:26:00 CDT, Duration: 30 day, Stop date: 03/10/17 19:25:00 TICKET COLLECTOR OR USHER Inactive 02/09/2017 [facility] ondansetron 4 mg, 2 mL, Route: IVP, Drug form: INJ, Q8H, Dosing Weight 104.545, kg, PRN Nausea & Vomiting, Start date: 02/08/17 20:26:00 CDT, Duration: 30 day, Stop date: 03/10/17 20:25:00 CSTNotes: (Same as: Zofran) MEDICATION WASTE Product Size: 4 mg Product Wasted: ___ mg No Longer Active 02/09/2017 [facility] acetaminophen 650 mg, 2 tab, Route: PO, Drug form: TAB, Q4H, Dosing Weight 104.545, kg, PRN Pain 1-3/Temp > 99.5 F, Start date: 02/08/17 20:26:00 CDT, Duration: 30 day, Stop date: 03/10/17 20:25:00 CSTNotes: Do not exceed 4 gm/day. (Same as: Tylenol) No Longer Active 02/09/2017 [facility] bisacodyl 10 mg, 1 supp, Route: AR, Drug form: SUPP, Daily, Dosing Weight 104.545, kg, PRN Constipation, Start date: 02/08/17 20:26:00 CDT, Duration: 30 day, Stop date: 03/10/17 20:25:00 CSTNotes: (Same As: Dulcolax, Bisco-Lax) No Longer Active 02/09/2017 [facility] Saline Flush 0.9% 10 mL, Route: IVP, Drug Form: INJ, Dosing Weight 104.545, kg, PRN, PRN Line Flush, Start date: 02/08/17 16:21:00 CDT, Duration: 30 day, Stop date: 03/10/17 15:20:00 CSTNotes: (Same as: BD Posiflush) No Longer Active 02/08/2017 [facility] Allergies, Adverse Reactions, Alerts Substance Category Reaction Severity Reaction type Status Date Reported Comments Source Immunizations Immunization Date Given Site Status Last Updated Comments Source pneumococcal 13-valent vaccine 02/09/2017 Left deltoid completed [facility] influenza virus vaccine, inactivated 02/09/2017 Right deltoid completed [facility] pneumococcal 13-valent vaccine 02/09/2017 Left deltoid completed [facility] Results Order Name Results Value Reference Range Date Interpretation Comments Source Esophagus BA swallow function video DX Esophagus BA swallow function video DX MODIFIED BARIUM SWALLOW. HISTORY: Coughing with thin liquid. TECHNIQUE/FINDINGS/IMPRESSION: Study performed in conjunction with the speech pathologist. The patient given several consistencies to ingest under fluoroscopic observation. Several fluoroscopic spot views acquired. Fluoroscopic time was 2.1 limits. IMPRESSION: 1. Aspiration demonstrated with the thin consistency. 2. Laryngeal penetration seen with the nectar. Please see speech pathology report for further details. SL: [id number] 06/08/2017 - - Read by: Oral Ahumada MD Dictated Date/time: 06/08/17 13:31 Electronically Signed by: Oral Ahumada MD 06/08/17 13:32 FINAL REPORT [facility] CHEM PANEL Magnesium Lvl 2.4 mg/dL 1.8 - 2.4 06/08/2017 [facility] eGFR 20 mL/min/1.73m2 06/08/2017 Result Comment: The eGFR is calculated using the CKD-EPI formula. In most young, healthy individuals the eGFR will be >90 mL/min/1.73m2. The eGFR declines with age. An eGFR of 60-89 may be normal in some populations, particularly the elderly, for whom the CKD-EPI formula has not been extensively validated. Use of the eGFR is not recommended in the following populations: Individuals with unstable creatinine concentrations, including patients and those with serious co-morbid conditions. Patients with extremes in muscle mass or diet. The data above are obtained from the National Kidney Disease Education Program (NKDEP) which additionally recommends that when the eGFR is used in patients with extremes of body mass index for purposes of drug dosing, the eGFR should be multiplied by the estimated BMI. [facility] CHEM PANEL AST 15 unit/L 0 - 37 06/08/2017 [facility] CHEM PANEL Alk Phos 161 unit/L 39 - 136 06/08/2017 [facility] CHEM PANEL ALT 17 unit/L 0 - 65 06/08/2017 [facility] CHEM PANEL Albumin Lvl 2.4 g/dL 3.5 - 5.0 06/08/2017 [facility] CHEM PANEL Bili Total 0.6 mg/dL 0.2 - 1.3 06/08/2017 [facility] CHEM PANEL Calcium Lvl 7.9 mg/dL 8.5 - 10.5 06/08/2017 [facility] CHEM PANEL CO2 23 meq/L 24 - 32 06/08/2017 [facility] CHEM PANEL Total Protein 5.9 g/dL 6.4 - 8.4 06/08/2017 [facility] CHEM PANEL Creatinine Lvl 3.00 mg/dL 0.50 - 1.40 06/08/2017 [facility] CHEM PANEL BUN 59 mg/dL 7 - 22 06/08/2017 [facility] CHEM PANEL Glucose Lvl 91 mg/dL 70 - 99 06/08/2017 [facility] CHEM PANEL Sodium Lvl 144 meq/L 135 - 145 06/08/2017 [facility] CHEM PANEL Chloride Lvl 111 meq/L 95 - 109 06/08/2017 [facility] CHEM PANEL Potassium Lvl 4.6 meq/L 3.5 - 5.1 06/08/2017 [facility] CHEM PANEL Globulin 3.5 g/dL 2.7 - 4.2 06/08/2017 [facility] CHEM PANEL B/C Ratio 20 6 - 25 06/08/2017 [facility] CHEM PANEL AGAP 14.6 meq/L 10.0 - 20.0 06/08/2017 [facility] CHEM PANEL A/G Ratio 0.7 0.7 - 1.6 06/08/2017 [facility] HEMATOLOGY Lymphocytes 19.4 % 20.0 - 40.0 06/08/2017 [facility] HEMATOLOGY Monocytes 10.7 % 2.0 - 12.0 06/08/2017 [facility] HEMATOLOGY Segs 65.2 % 45.0 - 75.0 06/08/2017 [facility] HEMATOLOGY Eosinophils # 0.2 K/CMM 0.0 - 0.5 06/08/2017 [facility] HEMATOLOGY Monocytes # 0.6 K/CMM 0.0 - 0.8 06/08/2017 [facility] HEMATOLOGY Lymphocytes # 1.1 K/CMM 1.0 - 5.5 06/08/2017 [facility] HEMATOLOGY Basophils 0.8 % 0.0 - 1.0 06/08/2017 [facility] HEMATOLOGY Eosinophils 3.9 % 0.0 - 4.0 06/08/2017 [facility] HEMATOLOGY Segs-Bands # 3.6 K/CMM 1.5 - 8.1 06/08/2017 [facility] HEMATOLOGY MCV 95.2 fL 80.0 - 94.0 06/08/2017 [facility] HEMATOLOGY Hct 26.6 % 42.0 - 54.0 06/08/2017 [facility] HEMATOLOGY MPV 9.2 fL 7.4 - 10.4 06/08/2017 [facility] HEMATOLOGY Hgb 8.8 g/dL 14.0 - 18.0 06/08/2017 [facility] MCH 31.5 pg 27.0 - 31.0 06/08/2017 [facility] HEMATOLOGY RBC 2.80 M/CMM 4.70 - 6.10 06/08/2017 [facility] MCHC 33.1 g/dL 32.0 - 36.0 06/08/2017 [facility] HEMATOLOGY Platelet 151 K/CMM 133 - 450 06/08/2017 [facility] HEMATOLOGY RDW 16.7 % 11.5 - 14.5 06/08/2017 [facility] HEMATOLOGY WBC 5.6 K/CMM 3.7 - 10.4 06/08/2017 [facility] URINE AND STOOL UA Color Ltyellow 06/07/2017 [facility] URINE AND STOOL UA Urobilinogen <=1.0 mg/dL 0.1 - 1.0 06/07/2017 [facility] URINE AND STOOL UA Sq Epi None Seen 06/07/2017 [facility] URINE AND STOOL UA RBC 6 /HPF 0 - 2 06/07/2017 [facility] URINE AND STOOL UA Mucus Few /LPF None Seen /LPF 06/07/2017 [facility] URINE AND STOOL UA Leuk Est Negative (06/07/17 10:52 AM) Negative 06/07/2017 [facility] URINE AND STOOL UA Protein >=300 mg/dL Negative mg/dL 06/07/2017 [facility] URINE AND STOOL UA pH 5.0 5.0 - 8.0 06/07/2017 [facility] URINE AND STOOL UA Glucose 150 mg/dL Negative mg/dL 06/07/2017 [facility] URINE AND STOOL UA Ketones Negative mg/dL Negative mg/dL 06/07/2017 [facility] URINE AND STOOL UA Spec Grav 1.012 <=1.030 06/07/2017 [facility] URINE AND STOOL UA Turbidity Slight *ABN* (06/07/17 10:52 AM) Clear 06/07/2017 [facility] URINE AND STOOL UA WBC null 0 - 5 06/07/2017 [facility] URINE AND STOOL UA Bili Negative *NA* (06/07/17 10:52 AM) Negative 06/07/2017 [facility] URINE AND STOOL UA Nitrite Negative (06/07/17 10:52 AM) Negative 06/07/2017 [facility] URINE AND STOOL UA Blood Small *ABN* (06/07/17 10:52 AM) Negative 06/07/2017 [facility] URINE AND STOOL UA Urobilinogen <=1.0 mg/dL 0.1 - 1.0 06/07/2017 [facility] URINE AND STOOL UA Glucose 150 mg/dL Negative mg/dL 06/07/2017 [facility] URINE AND STOOL UA Protein >=300 mg/dL Negative mg/dL 06/07/2017 [facility] URINE AND STOOL UA pH 5.0 5.0 - 8.0 06/07/2017 [facility] URINE AND STOOL UA Spec Grav 1.011 <=1.030 06/07/2017 [facility] URINE AND STOOL UA Leuk Est Negative (06/07/17 3:27 AM) Negative 06/07/2017 [facility] URINE AND STOOL UA Nitrite Negative (06/07/17 3:27 AM) Negative 06/07/2017 [facility] URINE AND STOOL UA Blood Small *ABN* (06/07/17 3:27 AM) Negative 06/07/2017 [facility] URINE AND STOOL UA Bili Negative *NA* (06/07/17 3:27 AM) Negative 06/07/2017 [facility] URINE AND STOOL UA Ketones Negative mg/dL Negative mg/dL 06/07/2017 [facility] URINE AND STOOL UA RBC 3 /HPF 0 - 2 06/07/2017 [facility] URINE AND STOOL UA Amorph Columba Occasional /HPF None Seen /HPF 06/07/2017 [facility] URINE AND STOOL UA Mucus Few /LPF None Seen /LPF 06/07/2017 [facility] URINE AND STOOL UA Bacteria Few /HPF None Seen /HPF 06/07/2017 [facility] URINE AND STOOL UA WBC 2 /HPF 0 - 5 06/07/2017 [facility] URINE AND STOOL UA Color Ltyellow 06/07/2017 [facility] URINE AND STOOL UA Sq Epi None Seen 06/07/2017 [facility] URINE AND STOOL UA Turbidity Slight *ABN* (06/07/17 3:27 AM) Clear 06/07/2017 [facility] CHEM PANEL Ammonia 37.0 umol/L <=45.0 uMol/L 06/07/2017 [facility] CHEM PANEL Lactic Acid Lvl 0.8 mMol/L 0.5 - 2.2 06/07/2017 [facility] CARDIAC ENZYMES CK MB Index 3.2 0.0 - 2.5 06/07/2017 [facility] CARDIAC ENZYMES Troponin-I 0.03 ng/mL 0.00 - 0.40 06/07/2017 [facility] CARDIAC ENZYMES Total CK 112 unit/L 12 - 191 06/07/2017 [facility] CARDIAC ENZYMES CK MB 3.6 ng/mL 0.5 - 3.6 06/07/2017 [facility] CHEM PANEL Phosphorus 3.3 mg/dL 2.5 - 4.5 06/07/2017 [facility] CHEM PANEL Magnesium Lvl 2.4 mg/dL 1.8 - 2.4 06/07/2017 [facility] ELECTROLYTES AGAP 15.6 meq/L 10.0 - 20.0 06/07/2017 [facility] ELECTROLYTES Bili Total 0.6 mg/dL 0.2 - 1.3 06/07/2017 [facility] ELECTROLYTES Alk Phos 186 unit/L 39 - 136 06/07/2017 [facility] ELECTROLYTES B/C Ratio 20 6 - 25 06/07/2017 [facility] ELECTROLYTES A/G Ratio 0.6 0.7 - 1.6 06/07/2017 [facility] ELECTROLYTES Potassium Lvl 4.6 meq/L 3.5 - 5.1 06/07/2017 [facility] ELECTROLYTES Sodium Lvl 140 meq/L 135 - 145 06/07/2017 [facility] ELECTROLYTES Globulin 4.4 g/dL 2.7 - 4.2 06/07/2017 [facility] ELECTROLYTES AST 19 unit/L 0 - 37 06/07/2017 [facility] ELECTROLYTES Chloride Lvl 107 meq/L 95 - 109 06/07/2017 [facility] ELECTROLYTES Calcium Lvl 7.8 mg/dL 8.5 - 10.5 06/07/2017 [facility] ELECTROLYTES CO2 22 meq/L 24 - 32 06/07/2017 [facility] ELECTROLYTES ALT 22 unit/L 0 - 65 06/07/2017 [facility] ELECTROLYTES Albumin Lvl 2.5 g/dL 3.5 - 5.0 06/07/2017 [facility] ELECTROLYTES Total Protein 6.9 g/dL 6.4 - 8.4 06/07/2017 [facility] ELECTROLYTES eGFR 19 mL/min/1.73m2 06/07/2017 Result Comment: The eGFR is calculated using the CKD-EPI formula. In most young, healthy individuals the eGFR will be >90 mL/min/1.73m2. The eGFR declines with age. An eGFR of 60-89 may be normal in some populations, particularly the elderly, for whom the CKD-EPI formula has not been extensively validated. Use of the eGFR is not recommended in the following populations: Individuals with unstable creatinine concentrations, including patients and those with serious co-morbid conditions. Patients with extremes in muscle mass or diet. The data above are obtained from the National Kidney Disease Education Program (NKDEP) which additionally recommends that when the eGFR is used in patients with extremes of body mass index for purposes of drug dosing, the eGFR should be multiplied by the estimated BMI. [facility] ELECTROLYTES Creatinine Lvl 3.14 mg/dL 0.50 - 1.40 06/07/2017 [facility] ELECTROLYTES BUN 63 mg/dL 7 - 22 06/07/2017 [facility] ELECTROLYTES Glucose Lvl 246 mg/dL 70 - 99 06/07/2017 [facility] Segs-Bands # 7.8 K/CMM 1.5 - 8.1 06/07/2017 [facility] Monocytes # 0.7 K/CMM 0.0 - 0.8 06/07/2017 [facility] Lymphocytes 8.0 % 20.0 - 40.0 06/07/2017 [facility] Lymphocytes # 0.7 K/CMM 1.0 - 5.5 06/07/2017 [facility] Monocytes 7.3 % 2.0 - 12.0 06/07/2017 [facility] Eosinophils 0.5 % 0.0 - 4.0 06/07/2017 [facility] Basophils 0.5 % 0.0 - 1.0 06/07/2017 [facility] Segs 83.7 % 45.0 - 75.0 06/07/2017 [facility] MPV 9.0 fL 7.4 - 10.4 06/07/2017 [facility] MCH 31.0 pg 27.0 - 31.0 06/07/2017 [facility] Hct 28.5 % 42.0 - 54.0 06/07/2017 [facility] MCV 96.4 fL 80.0 - 94.0 06/07/2017 [facility] RBC 2.96 M/CMM 4.70 - 6.10 06/07/2017 [facility] Hgb 9.2 g/dL 14.0 - 18.0 06/07/2017 [facility] WBC 9.3 K/CMM 3.7 - 10.4 06/07/2017 [facility] RDW 16.3 % 11.5 - 14.5 06/07/2017 [facility] HEMATOLOGY Platelet 137 K/CMM 133 - 450 06/07/2017 [facility] MCHC 32.2 g/dL 32.0 - 36.0 06/07/2017 [facility] INR 1.19 0.85 - 1.17 06/07/2017 [facility] PT 15.2 s 12.0 - 14.7 06/07/2017 [facility] PTT 47.7 s 22.9 - 35.8 06/07/2017 [facility] Brain wo contrast CT Brain wo contrast CT Clinical Indication: Head injury status post fall. Comparison: CT head performed 02/08/2017. TECHNIQUE: CT images were obtained from the foramen magnum to the vertex without the use of intravenous contrast on a multidetector CT. Coronal and sagittal reconstructions were obtained. CT radiation dose DLP: 1669.12 mGy-cm FINDINGS: BRAIN PARENCHYMA: Mild nonspecific periventricular white matter disease changes are noted. Atherosclerotic calcifications are present within the carotid siphons and distal vertebral arteries. There is no mass effect, midline shift or edema. There are no intra-axial or extra-axial fluid collections, intraventricular or intraparenchymal hemorrhage. The sumner-white differentiation is preserved without CT evidence of acute territorial infarction. VENTRICLES: There is no evidence of hydrocephalus. The basilar cisterns are within normal limits. ORBITS, MASTOIDS AND PARANASAL SINUSES: There is bilateral frontal, ethmoid and maxillary mucosal thickening. A mucous retention cyst versus polyp is seen within the left frontal sinus. There is evidence of prior lens surgery within both globes. The mastoid air cells are clear. SKULL: There are no calvarial abnormalities seen. If there is further concern for intracranial pathology or acute stroke, MRI of the brain may be performed for complete assessment. IMPRESSION: No acute intracranial hemorrhage or mass effect. No CT evidence of acute territorial infarction. Mild chronic microvascular ischemic changes. SL: KPATEL-M 06/07/2017 - - Read by: Peter Vee MD Dictated Date/time: 06/07/17 04:48 Electronically Signed by: Peter Vee MD 06/07/17 04:53 FINAL REPORT [facility] Spine cervical wo contrast CT Spine cervical wo contrast CT Clinical Indication: Injury status post fall. Comparison: None Technique: Multi-detector CT imaging of the cervical spine is performed. Coronal and sagittal reconstructions were obtained. CT Radiation Dose DLP 977.19 mGy-cm FINDINGS: ALIGNMENT AND GENERAL ASSESSMENT: There is no acute fracture or malalignment of the cervical spine. No atlantooccipital or atlantoaxial disassociation is seen. DISK SPACES AND SOFT TISSUES: There is no prevertebral soft tissue swelling. There are multilevel degenerative changes throughout the cervical spine with anterior and posterior osteophytes, disk bulges as well as bilateral uncovertebral and facet hypertrophy. MRI is the gold standard to assess for disk disease. VISUALIZED LUNG APICES: Unremarkable. CT myelogram or MRI of the cervical spine may be performed, if there is further concern. IMPRESSION: Degenerative changes within the cervical spine without acute fractures or subluxations. SL: SILVERIO 06/07/2017 - - Read by: Peter Vee MD Dictated Date/time: 06/07/17 04:53 Electronically Signed by: Peter Vee MD 06/07/17 05:01 FINAL REPORT [facility] Chest 1view DX Chest 1view DX EXAM: Chest x-ray one view (frontal) HISTORY: - dyspnea. COMPARISON: 02/08/2017 FINDINGS: Mediastinum: The heart is mildly enlarged, unchanged. Lungs and pleura: A few left basilar retrocardiac opacities may represent subsegmental atelectasis or infiltrate.No pleural effusion or pneumothorax. The pulmonary vascularity is normal. No acute osseous displaced abnormality is noted. A chronic right-sided rib fracture is noted. IMPRESSION: A few left basilar retrocardiac opacities may represent subsegmental atelectasis or infiltrate. Stable mild cardiomegaly. No evidence of pulmonary edema. SL: UKUDDEVYN 06/07/2017 - - Read by: Wagner Roldan MD Dictated Date/time: 06/07/17 03:35 Electronically Signed by: Wagner Roldan MD 06/07/17 03:39 FINAL REPORT [facility] Pelvis AP DX Pelvis AP DX Clinical Indication: Status post fall. Comparison: None FINDINGS: The AP pelvis radiograph shows no fractures or dislocations of the pelvis. The pelvic and obturator rings are intact. The pubic rami are intact. The symphysis pubis and sacroiliac joints are unremarkable. The visualized sacral foramina are unremarkable. There are degenerative changes within the visualized spine. Vascular calcifications are seen. A nonspecific well-corticated ossific fragment is seen adjacent to the right acetabulum laterally. If there is further concern, recommend follow-up radiographs or bone scan for complete assessment. IMPRESSION: No evidence of acute pelvic fracture. Degenerative changes within the visualized spine. SL: KPATEL-M 06/07/2017 - - Read by: Peter Vee MD Dictated Date/time: 06/07/17 03:51 Electronically Signed by: Peter Vee MD 06/07/17 03:53 FINAL REPORT [facility] CHEM PANEL Calcium Lvl 7.6 mg/dL 8.5 - 10.5 02/10/2017 [facility]M PANEL CO2 28 meq/L 24 - 32 02/10/2017 [facility]M PANEL AGAP 10.5 meq/L 10.0 - 20.0 02/10/2017 [facility] PAN[facility] eGFR 30 mL/min/1.73m2 02/10/2017 Result Comment: The eGFR is calculated using the CKD-EPI formula. In most young, healthy individuals the eGFR will be >90 mL/min/1.73m2. The eGFR declines with age. An eGFR of 60-89 may be normal in some populations, particularly the elderly, for whom the CKD-EPI formula has not been extensively validated. Use of the eGFR is not recommended in the following populations: Individuals with unstable creatinine concentrations, including patients and those with serious co-morbid conditions. Patients with extremes in muscle mass or diet. The data above are obtained from the National Kidney Disease Education Program (NKDEP) which additionally recommends that when the eGFR is used in patients with extremes of body mass index for purposes of drug dosing, the eGFR should be multiplied by the estimated BMI. [facility] Potassium Lvl 3.5 meq/L 3.5 - 5.1 02/10/2017 [facility] Chloride Lvl 106 meq/L 95 - 109 02/10/2017 [facility] Sodium Lvl 141 meq/L 135 - 145 02/10/2017 [facility] Creatinine Lvl 2.20 mg/dL 0.50 - 1.40 02/10/2017 [facility] BUN 38 mg/dL 7 - 22 02/10/2017 [facility] Glucose Lvl 85 mg/dL 70 - 99 02/10/2017 [facility] MPV 8.0 fL 7.4 - 10.4 02/10/2017 [facility] Platelet 224 K/CMM 133 - 450 02/10/2017 [facility] RDW 13.6 % 11.5 - 14.5 02/10/2017 [facility] MCV 93.3 fL 80.0 - 94.0 02/10/2017 [facility] Hct 32.3 % 42.0 - 54.0 02/10/2017 [facility] MCHC 34.0 g/dL 32.0 - 36.0 02/10/2017 [facility] MCH 31.7 pg 27.0 - 31.0 02/10/2017 [facility] Hgb 11.0 g/dL 14.0 - 18.0 02/10/2017 [facility] RBC 3.46 M/CMM 4.70 - 6.10 02/10/2017 [facility] WBC 6.8 K/CMM 3.7 - 10.4 02/10/2017 [facility] Basophils # 0.1 K/CMM 0.0 - 0.2 02/10/2017 [facility] Eosinophils # 0.4 K/CMM 0.0 - 0.5 02/10/2017 [facility] Monocytes # 0.6 K/CMM 0.0 - 0.8 02/10/2017 [facility] Basophils 1.5 % 0.0 - 1.0 02/10/2017 [facility] Lymphocytes # 1.4 K/CMM 1.0 - 5.5 02/10/2017 [facility] Segs-Bands # 4.3 K/CMM 1.5 - 8.1 02/10/2017 [facility] Eosinophils 5.5 % 0.0 - 4.0 02/10/2017 [facility] Monocytes 9.6 % 2.0 - 12.0 02/10/2017 [facility] Lymphocytes 20.6 % 20.0 - 40.0 02/10/2017 [facility] Segs 62.8 % 45.0 - 75.0 02/10/2017 [facility] Retroperitoneal Complete US Retroperitoneal Complete US Clinical Indication: - CHAI, concern for CKD. Comparison: None TECHNIQUE: Multiple longitudinal and transverse real time sonographic images of the kidneys and urinary bladder are obtained. FINDINGS: KIDNEY: The right kidney measures 1 32 x 66.7 cm. The left kidney measures 1 21 x 66.3 cm. The kidneys are normal in size, shape, contour, and position. The cortices are normal in thickness and the corticomedullary differentiation is maintained. There is no hydronephrosis, nephrolithiasis, or abnormal perinephric collections. BLADDER: Scanning through the pelvis reveals the bladder to be partially distended with anechoic urine. AORTA AND IVC: The visualized portions appear unremarkable. ASCITES: No ascites noted. IMPRESSION: 1. Unremarkable renal U/S SL: CLARK 02/09/2017 - - Read by: Catracho Coelho DO Dictated Date/time: 02/09/17 22:31 Electronically Signed by: Catracho Coelho DO 02/09/17 22:33 FINAL REPORT [facility] PANEL Bili Total 0.6 mg/dL 0.2 - 1.3 02/09/2017 [facility] Alk Phos 121 unit/L 39 - 136 02/09/2017 [facility] Calcium Lvl 8.0 mg/dL 8.5 - 10.5 02/09/2017 [facility] B/C Ratio 14 6 - 25 02/09/2017 [facility] Total Protein 6.1 g/dL 6.4 - 8.4 02/09/2017 [facility] Globulin 4.0 g/dL 2.7 - 4.2 02/09/2017 [facility] Albumin Lvl 2.1 g/dL 3.5 - 5.0 02/09/2017 [facility] AST 15 unit/L 0 - 37 02/09/2017 [facility] ALT 12 unit/L 0 - 65 02/09/2017 [facility] A/G Ratio 0.5 0.7 - 1.6 02/09/2017 [facility] Potassium Lvl 3.8 meq/L 3.5 - 5.1 02/09/2017 [facility] Creatinine Lvl 2.33 mg/dL 0.50 - 1.40 02/09/2017 [facility] Sodium Lvl 140 meq/L 135 - 145 02/09/2017 [facility] BUN 32 mg/dL 7 - 22 02/09/2017 [facility] AGAP 12.8 meq/L 10.0 - 20.0 02/09/2017 [facility] Chloride Lvl 104 meq/L 95 - 109 02/09/2017 [facility] CHEM PANEL CO2 27 meq/L 24 - 32 02/09/2017 [facility] CHEM PANEL Glucose Lvl 262 mg/dL 70 - 99 02/09/2017 [facility] CHEM PANEL eGFR 28 mL/min/1.73m2 02/09/2017 Result Comment: The eGFR is calculated using the CKD-EPI formula. In most young, healthy individuals the eGFR will be >90 mL/min/1.73m2. The eGFR declines with age. An eGFR of 60-89 may be normal in some populations, particularly the elderly, for whom the CKD-EPI formula has not been extensively validated. Use of the eGFR is not recommended in the following populations: Individuals with unstable creatinine concentrations, including patients and those with serious co-morbid conditions. Patients with extremes in muscle mass or diet. The data above are obtained from the National Kidney Disease Education Program (NKDEP) which additionally recommends that when the eGFR is used in patients with extremes of body mass index for purposes of drug dosing, the eGFR should be multiplied by the estimated BMI. [facility] Esophagus BA swallow function video DX Esophagus BA swallow function video DX Patient Name: EDWIGE HORVATH : 1950; Age: 66 years Male MR: [id number] Study: Esophagus BA swallow function video DX Order Time: 02/09/2017 9:20 AM CDT Clinical Indication: Fluoro time: 1.17min Total Dose: 9.78mGy HISTORY: Choking on thin liquids COMPARISON: None. FLUOROSCOPY TIME: 1.7 minutes. TECHNIQUE: Fluoroscopic assistance was provided for the speech pathologist for modified barium swallow examination. Varying consistencies of barium were administered po. FINDINGS: Thin consistency barium: Flash penetration with deep penetration on partial volumes. [place] consistency barium: Flash penetration. Pudding coated barium: No aspiration or any significant laryngeal penetration. Barium with cracker preparation: No aspiration or any significant laryngeal penetration. SL: [id number] 02/09/2017 - - Read by: Jose Guadalupe Messer MD Dictated Date/time: 02/09/17 14:29 Electronically Signed by: Jose Guadalupe Messer MD 02/09/17 14:30 FINAL REPORT [facility] Neck wo contrast MRA Neck wo contrast MRA Clinical Indication: Slurred speech and unsteady gait since this morning. Stroke. Comparison: None Technique: Magnetic resonance angiography of the neck was performed without gadolinium contrast with time of flight technique. 3-D maximum intensity projection images were obtained. FINDINGS: The origins of the right brachiocephalic artery, right common carotid artery, right subclavian artery, left common carotid artery, left subclavian artery and left vertebral artery are widely patent. Bilateral common carotid arteries are widely patent. Bilateral internal carotid arteries and carotid bulb regions are patent without significant stenosis by NASCET criteria. Bilateral external carotid arteries are patent. The right vertebral artery is not visualized and may be hypoplastic or occluded. The left vertebral artery is widely patent without stenosis. The visualized intracranial segment of the left vertebral artery is widely patent. The source images show no evidence of carotid dissection. Any reported ICA stenoses directly reference the distal internal carotid diameter as the denominator for stenosis measurement. (NASCET criteria) IMPRESSION: Right vertebral artery not visualized. Differential includes hyperplasia or occlusion. If indicated, further evaluation with CTA of the neck or MRA of the neck with contrast can be performed. No significant stenosis within the cervical carotid or left vertebral arteries. SL: SILVERIO 02/09/2017 - - Read by: Peter Vee MD Dictated Date/time: 02/09/17 02:27 Electronically Signed by: Peter Vee MD 02/09/17 02:57 FINAL REPORT [facility] Brain wo contrast MRA Brain wo contrast MRA Clinical Indication: Patient complained of slurred speech and unsteady gait since this morning. Stroke Comparison: CT head 02/08/2017. Technique: Magnetic resonance angiography of the nikolski of Tiwari was performed without contrast. 3D reconstructed images were created. FINDINGS: There is moderate narrowing of the distal petrous and cavernous segments of the internal carotid arteries. The distal cervical and cervical portions of the internal carotid arteries are unremarkable. There is a small caliber of the A1 segment of the left anterior cerebral artery, which may be developmental. The right A1 and bilateral A2 segments of the anterior cerebral arteries are unremarkable. The M1 and M2 segments of bilateral middle cerebral arteries and branches have normal caliber. The anterior communicating artery is unremarkable. The left vertebral artery, basilar artery, and posterior cerebral arteries are unremarkable. The right vertebral artery is not visualized, which may be secondary to developmental hypoplasia or severe stenosis. The posterior communicating arteries are not visualized. There is no saccular aneurysm, or vascular malformation. IMPRESSION: Moderate stenosis of the distal petrous and cavernous segments of the internal carotid arteries. Findings likely secondary to atherosclerotic disease. Right vertebral artery not visualized, which may be due to developmental hypoplasia or severe stenosis. SL: SILVERIO 02/09/2017 - - Read by: Peter Vee MD Dictated Date/time: 02/09/17 02:21 Electronically Signed by: Peter Vee MD 02/09/17 02:27 FINAL REPORT [facility] Brain wo contrast MRI Brain wo contrast MRI Clinical Indication: Slurred speech and unsteady gait since this morning. Comparison: CT head performed 02/08/2017. TECHNIQUE: Multisequence, multiplanar magnetic resonance imaging imaging of the brain is performed without contrast. Contrast: None. FINDINGS: BRAIN PARENCHYMA: There is mild generalized cortical atrophy. Mild nonspecific periventricular white matter foci of increased T2 and FLAIR signal are seen, likely related to small vessel disease. A small chronic lacunar infarct is identified within the central and left lia. There is no mass effect or midline shift. There are no extra-axial fluid collection, or intraparenchymal hemorrhage. The corpus callosum appears normal. There is no diffusion weighted imaging or ADC map abnormality to suggest acute/subacute ischemia. There is no magnetic susceptibility to suggest recent or remote intracranial hemorrhage. CEREBELLOPONTINE REGIONS AND SKULL BASE: The cerebellopontine angles appear unremarkable. The optic chiasm is unremarkable. The sellar and pineal regions are unremarkable. VENTRICLES: There is ventriculomegaly, which is likely due to age-related parenchymal volume loss. The basilar cisterns are within normal limits. VESSELS: The venous sinuses are grossly unremarkable. The expected intracranial flow voids are present. ORBITS, VISUALIZED PARANASAL SINUSES AND MASTOIDS: There is evidence of prior lens surgery within both globes. Mild bilateral ethmoid and sphenoid sinus mucosal thickening is seen. There are mucous retention cysts within the left frontal sinus and left maxillary sinus. The mastoid air cells are clear. IMPRESSION: No acute intracranial abnormality without acute stroke, hemorrhage or mass. Small chronic lacunar infarct within the central and left lia. Generalized brain parenchymal atrophy with associated nonspecific periventricular white matter disease changes/small vessel disease. SL: SILVERIO 02/09/2017 - - Read by: Peter Vee MD Dictated Date/time: 02/09/17 02:14 Electronically Signed by: Peter Vee MD 02/09/17 02:21 FINAL REPORT [facility] CARDIAC ENZYMES CK MB Index 3.8 0.0 - 2.5 02/08/2017 [facility] CARDIAC ENZYMES Troponin-I 0.05 ng/mL 0.00 - 0.40 02/08/2017 [facility] CARDIAC ENZYMES CK MB 3.1 ng/mL 0.5 - 3.6 02/08/2017 [facility] CARDIAC ENZYMES Total CK 81 unit/L 12 - 191 02/08/2017 [facility] ELECTROLYTES AGAP 9.3 meq/L 10.0 - 20.0 02/08/2017 [facility] ELECTROLYTES eGFR 26 mL/min/1.73m2 02/08/2017 Result Comment: The eGFR is calculated using the CKD-EPI formula. In most young, healthy individuals the eGFR will be >90 mL/min/1.73m2. The eGFR declines with age. An eGFR of 60-89 may be normal in some populations, particularly the elderly, for whom the CKD-EPI formula has not been extensively validated. Use of the eGFR is not recommended in the following populations: Individuals with unstable creatinine concentrations, including patients and those with serious co-morbid conditions. Patients with extremes in muscle mass or diet. The data above are obtained from the National Kidney Disease Education Program (NKDEP) which additionally recommends that when the eGFR is used in patients with extremes of body mass index for purposes of drug dosing, the eGFR should be multiplied by the estimated BMI. [facility] ELECTROLYTES CO2 29 meq/L 24 - 32 02/08/2017 [facility] ELECTROLYTES Chloride Lvl 105 meq/L 95 - 109 02/08/2017 [facility] ELECTROLYTES Calcium Lvl 8.2 mg/dL 8.5 - 10.5 02/08/2017 [facility] ELECTROLYTES Glucose Lvl 78 mg/dL 70 - 99 02/08/2017 [facility] ELECTROLYTES BUN 29 mg/dL 7 - 22 02/08/2017 [facility] ELECTROLYTES Creatinine Lvl 2.50 mg/dL 0.50 - 1.40 02/08/2017 [facility] ELECTROLYTES Sodium Lvl 140 meq/L 135 - 145 02/08/2017 [facility] ELECTROLYTES Potassium Lvl 3.3 meq/L 3.5 - 5.1 02/08/2017 [facility] HEMATOLOGY Basophils 0.6 % 0.0 - 1.0 02/08/2017 [facility] HEMATOLOGY Eosinophils 0.2 % 0.0 - 4.0 02/08/2017 [facility] HEMATOLOGY Lymphocytes # 0.7 K/CMM 1.0 - 5.5 02/08/2017 [facility] HEMATOLOGY Segs-Bands # 8.2 K/CMM 1.5 - 8.1 02/08/2017 [facility] HEMATOLOGY Basophils # 0.1 K/CMM 0.0 - 0.2 02/08/2017 [facility] HEMATOLOGY Monocytes # 0.5 K/CMM 0.0 - 0.8 02/08/2017 [facility] HEMATOLOGY Lymphocytes 7.0 % 20.0 - 40.0 02/08/2017 [facility] HEMATOLOGY Segs 86.6 % 45.0 - 75.0 02/08/2017 [facility] HEMATOLOGY Monocytes 5.6 % 2.0 - 12.0 02/08/2017 [facility] HEMATOLOGY PTT 37.1 s 22.9 - 35.8 02/08/2017 [facility] HEMATOLOGY PT 13.3 s 12.0 - 14.7 02/08/2017 [facility] HEMATOLOGY INR 1.01 0.85 - 1.17 02/08/2017 [facility] HEMATOLOGY MCHC 33.2 g/dL 32.0 - 36.0 02/08/2017 [facility] HEMATOLOGY RBC 3.83 M/CMM 4.70 - 6.10 02/08/2017 [facility] HEMATOLOGY WBC 9.4 K/CMM 3.7 - 10.4 02/08/2017 [facility] HEMATOLOGY Hgb 11.9 g/dL 14.0 - 18.0 02/08/2017 [facility] HEMATOLOGY Platelet 251 K/CMM 133 - 450 02/08/2017 [facility] HEMATOLOGY RDW 13.6 % 11.5 - 14.5 02/08/2017 [facility] HEMATOLOGY MPV 8.4 fL 7.4 - 10.4 02/08/2017 [facility] HEMATOLOGY MCV 93.7 fL 80.0 - 94.0 02/08/2017 [facility] HEMATOLOGY Hct 35.9 % 42.0 - 54.0 02/08/2017 [facility] HEMATOLOGY MCH 31.1 pg 27.0 - 31.0 02/08/2017 [facility] LIPIDS Chol 303 mg/dL <=199 mg/dL 02/08/2017 [facility] LIPIDS HDL 56 mg/dL >=61 mg/dL 02/08/2017 [facility] LIPIDS VLDL 27 02/08/2017 [facility] LIPIDS LDL (Calculated) 220 mg/dL <=99 mg/dL 02/08/2017 [facility] LIPIDS Trig 133 mg/dL <=149 mg/dL 02/08/2017 [facility] LIPIDS CHD Risk 5.41 4.00 - 7.30 02/08/2017 [facility] SPECIAL CHEMISTRY Hgb A1C 12.9 % <=5.6 % 02/08/2017 [facility] Brain wo contrast CT Brain wo contrast CT Study: Brain wo contrast CT 02/08/2017 5:53 PM CDT Ordering Physician: Abel Bergeron DO Clinical Indication: - right sided drift, slurred speech Comparison: None TECHNIQUE: CT images are obtained from the foramen magnum to the vertex on a multidetector CT. Sagittal and coronal reformats are acquired. CT radiation dose DLP: 982 mGy-cm. FINDINGS: Ventricles, sulci and basal cisterns are within normal limits for age. The sumner- white junction is intact. No encephalomalacic changes are seen. Heavy bilateral cavernous ICA and left intradural vertebral artery calcifications are seen. There is no evidence for intracranial mass, mass effect or extra-axial fluid collection. There is no evidence for intracranial hemorrhage. The skull is intact. Mild left frontal and [id number] bilateral ethmoid air cell opacification is present. Minimal mucosal thickening is noted in the maxillary antra bilaterally. Mastoid air cells are clear. The patient has undergone previous bilateral cataract surgery. IMPRESSION: Mild chronic paranasal sinus disease. Otherwise unremarkable computed tomography scan of the brain without contrast. Should there be strong clinical concern regarding acute ischemia, MRI of the brain would be recommended for further assessment. SL: [id number] 02/08/2017 - - Read by: Merary Pittman MD Dictated Date/time: 02/08/17 18:10 Electronically Signed by: Merary Pittman MD 02/08/17 18:26 FINAL REPORT [facility] Brain contrast CT Brain wo contrast CT I have been advised from the scanning technologist from [facility] that the incorrect name was applied to this examination and should be disregarded. A report will be faxed to the [facility] Emergency Department. Clinical Indication: ct [id number] - right sided drift, slurred speech, woke up this morning with slurred speech. 66-year-old male with right-sided drift and slurred speech upon waking this morning possibly due to a stroke. Comparison: None TECHNIQUE: CT images were obtained from the foramen magnum to the vertex without the use of intravenous contrast on a multidetector CT. Coronal and sagittal reconstructions were obtained. CT radiation dose DLP: 981.8 mGy-cm FINDINGS: BRAIN PARENCHYMA: A poorly defined focus of decreased attenuation is seen posteriorly in the left centrum semiovale with mixed hypodensities that are age indeterminant. No clear evidence of mass effect is seen on the adjacent gyrus. Poorly defined areas of decreased attenuation are also seen in the lia series 2 image 10. There is mild generalized brain parenchymal atrophy related to the patient's age. Mild nonspecific periventricular white matter disease changes are noted. Atherosclerotic calcifications are present within the carotid siphons and distal vertebral arteries. There are no focal mass lesions on this noncontrast head CT. There is no mass effect or midline shift. There are no intra-axial or extra-axial fluid collections, intraventricular or intraparenchymal hemorrhage. The pineal, sellar, brainstem, cerebellum and skull base regions appear unremarkable. VENTRICLES: The lateral ventricles, third and fourth ventricles are normal for age. The basilar cisterns are normal. ORBITS, MASTOIDS AND PARANASAL SINUSES: The visualized orbits are unremarkable. Mild patchy mucosal thickening is seen in the paranasal sinuses. A small effusion is seen in the mastoid air cells on the right. No definite effusion is seen on the left. SKULL: There are no calvarial abnormalities seen. 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 If there is further concern for intracranial pathology or acute stroke, MRI of the brain may be performed for complete assessment. IMPRESSION: 1. Age indeterminant foci of decreased attenuation is seen in the posterior left centrum semiovale as well as in the lia. Magnetic resonance imaging is recommended to exclude the possibility of an acute or subacute infarction possibly superimposed on chronic changes. 2. Mild age-related changes are seen without evidence of a mass or intracranial hemorrhage. Report will be faxed to the [facility] Emergency Department following the dictation at 5:23 PM SL: [id number] 02/08/2017 - - Read by: Bentley Christian MD Dictated Date/time: 02/08/17 17:49 Electronically Signed by: Bentley Christian MD 02/08/17 17:52 FINAL REPORT - - Read by: Bentley Christian MD Dictated Date/time: 02/08/17 17:06 Electronically Signed by: Bentley Christian MD 02/08/17 17:24 FINAL REPORT [facility] Chest 1view DX Chest 1view DX Chest 1view DX 66 years old Male Clinical Indication: - cva sx; Comparison: None FINDINGS: Tubes, lines, hardware: None. LUNGS: The volume of the lungs is diminished by shallow inspiration. There is no evidence of consolidation. No pleural effusion is noted. The pulmonary vasculature is within normal limits. MEDIASTINUM: Cardiac silhouette is within normal limits of size. Calcific atherosclerotic vascular disease is noted in the thoracic aorta. CHEST WALL: Unremarkable. SKELETON: The visualized osseous structures are unremarkable. IMPRESSION: 1. No radiographic evidence of acute cardiopulmonary disease. SL: [id number] 02/08/2017 - - Read by: Alonzo Pham MD Dictated Date/time: 02/08/17 16:42 Electronically Signed by: Alonzo Pham MD 02/08/17 16:42 FINAL REPORT [facility] Vital Signs Vital Sign Value Date Comments Source Heart Rate 60 06/09/2017 [facility] Respitory Rate 16 06/09/2017 [facility] Systolic (mm Hg) 175 06/09/2017 [facility] Diastolic (mm Hg) 91 06/09/2017 [facility] Temperature Oral (F) 98.3 F 06/09/2017 [facility] Systolic (mm Hg) 173 06/08/2017 [facility] Diastolic (mm Hg) 82 06/08/2017 [facility] Heart Rate 60 06/08/2017 [facility] Respitory Rate 16 06/08/2017 [facility] Temperature Oral (F) 98.1 F 06/08/2017 [facility] Heart Rate 60 06/08/2017 [facility] Respitory Rate 16 06/08/2017 [facility] Systolic (mm Hg) 173 06/08/2017 [facility] Diastolic (mm Hg) 82 06/08/2017 [facility] Temperature Oral (F) 98.1 F 06/08/2017 [facility] Weight 95.597 06/07/2017 [facility] BMI Calculated 28.58 06/07/2017 [facility] Height 182.88 cm 06/07/2017 [facility] Systolic (mm Hg) 153 02/11/2017 [facility] Diastolic (mm Hg) 77 02/11/2017 [facility] Temperature Oral (F) 98.0 F 02/11/2017 [facility] Respitory Rate 16 02/11/2017 [facility] Heart Rate 60 02/11/2017 [facility] Respitory Rate 16 02/11/2017 [facility] Systolic (mm Hg) 157 02/11/2017 [facility] Diastolic (mm Hg) 80 02/11/2017 [facility] Heart Rate 57 02/11/2017 [facility] Temperature Oral (F) 98.1 F 02/11/2017 [facility] Heart Rate 58 02/11/2017 [facility] Respitory Rate 16 02/11/2017 [facility] Temperature Oral (F) 97.8 F 02/11/2017 [facility] Systolic (mm Hg) 121 02/11/2017 [facility] Diastolic (mm Hg) 61 02/11/2017 [facility] BMI Calculated 28.49 02/09/2017 [facility] Height 175.26 cm 02/09/2017 [facility] Weight 87.5 02/09/2017 [facility] BMI Calculated 33.07 02/08/2017 [facility] Weight 104.545 02/08/2017 [facility] Height 177.8 cm 02/08/2017 [facility] Encounters Location Location Details Encounter Type Encounter Number Reason For Visit Attending Provider ADM Date DC Date Status Source [facility] Observation [id number] Sanya Kumar 02/08/2017 02/11/2017 [facility] Observation [id number] April Arthur 06/07/2017 06/09/2017 [facility] Procedures Procedure Code Date Perfomer Comments Source Stent placement [id number] [facility]
--- OUTSIDE RECORDS SUMMARY | 2018-07-26 20:22 | XMS REPORT | Summary of Care ---
Author Author [facility] Organization [facility] Address Unknown Phone Unavailable Encounter HQ Ana([place]) [phone] Date(s): 06/07/17 - 06/08/17 [facility] [address] [place] [address]- Encounter Diagnosis Acute kidney failure, unspecified (Final) - 06/16/17 Type 2 diabetes mellitus with hypoglycemia without coma (Final) - Dehydration (Final) - Hypertensive chronic kidney disease with stage 1 through stage 4 chronic kidney disease, or unspecified chronic kidney disease (Final) - Chronic kidney disease, unspecified (Final) - Type 2 diabetes mellitus with diabetic chronic kidney disease (Final) - Fall from bed, initial encounter (Final) - Zoster without complications (Final) - Hyperlipidemia, unspecified (Final) - Atherosclerotic heart disease of [place] coronary artery without angina pectoris (Final) - Personal history of transient ischemic attack (TIA), and cerebral infarction wit hout residual deficits (Final) - Personal history of nicotine dependence (Final) - long term care pharmacist (current) use of aspirin (Final) - custodial (current) use of insulin (Final) - Discharge Disposition: Home Care with Home Health Attending Physician: April Arthur MD Admitting Physician: April Arthur MD Vital Signs 1 2 3 Most recent to oldest [Reference Range]: 182.88 cm (06/07/17 9:28 AM) Height 98.3 DegF (06/08/17 8:00 PM) 98.1 DegF (06/08/17 4:17 PM) 98.1 DegF (06/08/17 3:26 PM) Temperature Oral [96.4-99.1 DegF] 175/91 mmHg *HI* (06/08/17 8:00 PM) 173/82 mmHg *HI* (06/08/17 4:17 PM) 173/82 mmHg *HI* (06/08/17 3:26 PM) Blood Pressure [90-140/60-90 mmHg] 16 BRMIN (06/08/17 8:00 PM) 16 BRMIN (06/08/17 4:17 PM) 16 BRMIN (06/08/17 3:26 PM) Respiratory Rate [14-20 BRMIN] 60 bpm (06/08/17 8:00 PM) 60 bpm (06/08/17 4:17 PM) 60 bpm (06/08/17 3:26 PM) Peripheral Pulse Rate [60-100 bpm] 95.597 kg (06/07/17 9:28 AM) Weight 28.58 m2 (06/07/17 9:28 AM) Body Mass Index Problem List No data available for this section Allergies, Adverse Reactions, Alerts Substance Reaction Severity Status NKDA Active Medications acetaminophen 650 mg, 2 tab, Route: PO, Drug form: TAB, Q4H, Dosing Weight 87.5, kg, PRN Pain 1-3/Temp > 100.4 F, Start date: 06/07/17 7:07:00 FLORAL ASSISTANT, Duration: 30 day, Stop date: 07/07/17 7:06:00 CDT Notes: Do not exceed 4 gm/day. (Same as: Tylenol) Start Date: 06/07/17 Stop Date: 06/08/17 Status: Discontinued acyclovir + Sodium Chloride 0.9% IV 150 mL 750 mg, Route: IV, Drug form: PDR/INJ, [id number], Dosing Weight 95.597, kg, Start date: 06/07/17 21:00:00 FLORAL ASSISTANT, Duration: 7 day, Stop date: 06/13/17 21:00:00 FLORAL ASSISTANT Notes: (Same as: Zovirax)For adult patients only: Round to nearest 50 mg per Med ical Staff approval MEDICATION WASTE Product Size: 500 mgProduct Wasted : 250 mg Start Date: 06/07/17 Stop Date: 06/08/17 Status: Discontinued aspirin 300 mg rectal suppository 300 mg, 1 supp, Route: MT, Drug form: SUPP, ONCE, Dosing Weight 95.597, kg, Prio rity: NOW, Start date: 06/07/17 10:40:00 FLORAL ASSISTANT, Stop date: 06/07/17 10:40:00 FLORAL ASSISTANT Notes: Refrigerate. Start Date: 06/07/17 Stop Date: 06/07/17 Status: Completed aspirin 81 mg tablet, enteric coated 81 mg, 1 tab, Route: PO, Drug form: ECTAB, Q24H, Dosing Weight 95.597, kg, Start date: 06/07/17 10:00:00 FLORAL ASSISTANT, Duration: 30 day, Stop date: 07/06/17 10:00:00 CDT Notes: Do not crush or chew.(Same As: Ecotrin) Start Date: 06/07/17 Stop Date: 06/08/17 Status: Discontinued atorvastatin 80 mg, 2 tab, Route: PO, Drug form: TAB, Bedtime, Dosing Weight 95.597, kg, Star t date: 06/07/17 21:00:00 FLORAL ASSISTANT, Duration: 30 day, Stop date: 07/06/17 21:00:00 CD T Notes: (Same as: Lipitor) Start Date: 06/07/17 Stop Date: 06/08/17 Status: Discontinued Dextrose 50% Syringe 25 gm, 50 mL, Route: IVP, Drug Form: INJ, Dosing Weight 95.597, kg, PRN, PRN Blo od Glucose Results, Start date: 06/07/17 9:48:00 FLORAL ASSISTANT, Duration: 30 day, Stop sheryl e: 07/07/17 10:47:00 CDT Start Date: 06/07/17 Stop Date: 06/08/17 Status: Discontinued Dextrose 50% Syringe 12.5 gm, 25 mL, Route: IVP, Drug Form: INJ, Dosing Weight 95.597, kg, PRN, PRN B lood Glucose Results, Start date: 06/07/17 9:48:00 FLORAL ASSISTANT, Duration: 30 day, Stop d ate: 07/07/17 10:47:00 CDT Start Date: 06/07/17 Stop Date: 06/08/17 Status: Discontinued glucagon 1 mg, Route: IM, Drug form: PDR/INJ, PRN, Dosing Weight 95.597, kg, PRN Blood Gl ucose Results, Start date: 06/07/17 9:48:00 FLORAL ASSISTANT, Duration: 30 day, Stop date: 10:47:00 CDT Start Date: 06/07/17 Stop Date: 06/08/17 Status: Discontinued heparin 5,000 unit, 1 mL, Route: SUB-Q, Drug form: INJ, Q8H-06, Dosing Weight 95.597, kg , (For patients weighing < 100 kg)., Start date: 06/07/17 11:00:00 FLORAL ASSISTANT, Duration: 30 day, Stop date: 07/07/17 3:00:00 CDT Notes: porcine heparin Start Date: 06/07/17 Stop Date: 06/08/17 Status: Discontinued hydrALAZINE 10 mg, 0.5 mL, Route: IVP, Drug form: INJ, Q4H, Dosing Weight 95.597, kg, PRN El evated BP, Start date: 06/08/17 10:09:00 FLORAL ASSISTANT, Duration: 30 day, Stop date: 07/08 10:08:00 CDT Notes: (Same as: Apresoline)Push over 5 minutes Start Date: 06/08/17 Stop Date: 06/08/17 Status: Discontinued insulin lispro 4 unit, 0.04 mL, Route: SUB-Q, Drug form: SOLN, Sliding Scale, Dosing Weight 95. 597, kg, PRN Blood Glucose Results, Start date: 06/07/17 9:48:00 FLORAL ASSISTANT, Duration: 30 day, Stop date: 07/07/17 10:47:00 CDT Notes: (Same as: Humalog ) Roll in palms of hands gently; Do not shake `vigorou sly. "Single Patient Use Only " WASTE: F/P - Black; E - [employer] [address] able for 28 days at room temperature.Expires in days from Da te Start Date: 06/07/17 Stop Date: 06/08/17 Status: Discontinued insulin lispro 6 unit, 0.06 mL, Route: SUB-Q, Drug form: SOLN, Sliding Scale, Dosing Weight 95. 597, kg, PRN Blood Glucose Results, Start date: 06/07/17 9:48:00 FLORAL ASSISTANT, Duration: 30 day, Stop date: 07/07/17 10:47:00 CDT Notes: (Same as: Humalog ) Roll in palms of hands gently; Do not shake `vigorou sly. "Single Patient Use Only " WASTE: F/P - Black; E - [facility] [employer] [address] able for 28 days at room temperature.Expires in days from Da te Start Date: 06/07/17 Stop Date: 06/08/17 Status: Discontinued insulin lispro 8 unit, 0.08 mL, Route: SUB-Q, Drug form: SOLN, Sliding Scale, Dosing Weight 95. 597, kg, PRN Blood Glucose Results, Start date: 06/07/17 9:48:00 FLORAL ASSISTANT, Duration: 30 day, Stop date: 07/07/17 10:47:00 CDT Notes: (Same as: Humalog ) Roll in palms of hands gently; Do not shake `vigorou sly. "Single Patient Use Only " WASTE: F/P - Black; E - [facility] [address] [address] able for 28 days at room temperature.Expires in days from Da te Start Date: 06/07/17 Stop Date: 06/08/17 Status: Discontinued insulin lispro 10 unit, 0.1 mL, Route: SUB-Q, Drug form: SOLN, Sliding Scale, Dosing Weight 95. 597, kg, PRN Blood Glucose Results, Start date: 06/07/17 9:48:00 FLORAL ASSISTANT, Duration: 30 day, Stop date: 07/07/17 10:47:00 CDT Notes: (Same as: Humalog ) Roll in palms of hands gently; Do not shake `vigorou sly. "Single Patient Use Only " WASTE: F/P - Black; E - [facility] [address] [address] able for 28 days at room temperature.Expires in days from Da te Start Date: 06/07/17 Stop Date: 06/08/17 Status: Discontinued insulin lispro 2 unit, 0.02 mL, Route: SUB-Q, Drug form: SOLN, Sliding Scale, Dosing Weight 95. 597, kg, PRN Blood Glucose Results, Start date: 06/07/17 9:48:00 FLORAL ASSISTANT, Duration: 30 day, Stop date: 07/07/17 10:47:00 CDT Notes: (Same as: Humalog ) Roll in palms of hands gently; Do not shake `vigorou sly. "Single Patient Use Only " WASTE: F/P - Black; E - [facility] [address] able for 28 days at room temperature.Expires in days from Da te Start Date: 06/07/17 Stop Date: 06/08/17 Status: Discontinued morphine Sulfate 4 mg, 1 mL, Route: IVP, Drug form: SOLN, Q4H, Dosing Weight 95.597, kg, PRN Pain Score 7-10, Start date: 06/07/17 20:16:00 FLORAL ASSISTANT, Duration: 30 day, Stop date: 20:15:00 CDT Notes: (Same as:MORPhine Sulfate) Start Date: 06/07/17 Stop Date: 06/08/17 Status: Voided With Results morphine Sulfate 2 mg, 1 mL, Route: IVP, Drug form: INJ, Q4H, Dosing Weight 95.597, kg, PRN Pain Score 7-10, Start date: 06/08/17 10:32:00 FLORAL ASSISTANT, Duration: 30 day, Stop date: 06/11 10:31:00 CDT Notes: (Same as:MORPhine Sulfate) Start Date: 06/08/17 Stop Date: 06/08/17 Status: Discontinued ondansetron 4 mg, 2 mL, Route: IVP, Drug form: INJ, Q6H, Dosing Weight 87.5, kg, PRN Nausea & Vomiting, Start date: 06/07/17 7:07:00 FLORAL ASSISTANT, Duration: 30 day, Stop date: 07/07/17 7:06:00 CDT Notes: (Same as: Taylor) MEDICATION WASTE Product Size: 4 mgProduct Was lam: ___ mg Start Date: 06/07/17 Stop Date: 06/08/17 Status: Discontinued Saline Flush 0.9% 10 ml, Route: IVP, Drug Form: INJ, Dosing Weight 95.597, kg, PRN, PRN Line Flush , Start date: 06/07/17 9:47:00 FLORAL ASSISTANT, Duration: 30 day, Stop date: 07/07/17 10:46: 00 CDT Notes: (Same as: BD Posiflush) Start Date: 06/07/17 Stop Date: 06/08/17 Status: Discontinued Saline Flush 0.9% 10 ml, Route: IVP, Drug Form: INJ, Dosing Weight 95.597, kg, Q12H, Start date: 0 06/07/17 21:00:00 FLORAL ASSISTANT, Duration: 30 day, Stop date: 07/07/17 9:00:00 CDT Notes: (Same as: BD Posiflush) Start Date: 06/07/17 Stop Date: 06/08/17 Status: Discontinued Saline Flush 0.9% 10 ml, Route: IVP, Drug Form: INJ, Dosing Weight 87.5, kg, PRN, PRN Line Flush, Start date: 06/07/17 7:07:00 FLORAL ASSISTANT, Duration: 30 day, Stop date: 07/07/17 8:06:00 CDT Notes: (Same as: BD Posiflush) Start Date: 06/07/17 Stop Date: 06/08/17 Status: Discontinued Sodium Chloride 0.9% IV 1,000 mL 1,000 mL, Rate: 75 ml/hr, Infuse over: 13.3 hr, Route: IV, Dosing Weight 87.5 kg , Total Volume: 1,000, Start date: 06/07/17 6:02:00 FLORAL ASSISTANT, Duration: 30 day, Stop date: 07/07/17 6:01:00 CDT, 2.08, m2 Start Date: 06/07/17 Stop Date: 06/07/17 Status: Discontinued Sodium Chloride 0.9% IV 1,000 mL 1,000 mL, Rate: 125 ml/hr, Infuse over: 8 hr, Route: IV, Dosing Weight 87.5 kg, Total Volume: 1,000, Start date: 06/07/17 7:07:00 FLORAL ASSISTANT, Duration: 30 day, Stop da te: 07/07/17 7:06:00 CDT, 2.08, m2 Start Date: 06/07/17 Stop Date: 06/08/17 Status: Discontinued valACYclovir 1,000 mg, 2 tab, Route: PO, Drug form: TAB, [id number], Dosing Weight 95.597, kg, P riority: NOW, Start date: 06/07/17 10:47:00 FLORAL ASSISTANT, Duration: 7 day, Stop date: 08/26 10:47:00 FLORAL ASSISTANT Notes: (Same As: Valtrex) Start Date: 06/07/17 Stop Date: 06/07/17 Status: Discontinued Results ELECTROLYTES Most recent to 1 2 oldest [Reference Range]: Sodium Lvl [135-145 144 mEq/L 140 mEq/L mEq/L] (06/08/17 4:23 AM) (06/07/17 2:15 AM) Potassium Lvl 4.6 mEq/L 4.6 mEq/L [3.5-5.1 mEq/L] (06/08/17 4:23 AM) (06/07/17 2:15 AM) Chloride Lvl [95-109 111 mEq/L 107 mEq/L mEq/L] *HI* (06/07/17 2:15 AM) (06/08/17 4:23 AM) CO2 [24-32 mEq/L] 23 mEq/L 22 mEq/L *LOW* *LOW* (06/08/17 4:23 AM) (06/07/17 2:15 AM) AGAP [10.0-20.0 14.6 mEq/L 15.6 mEq/L mEq/L] (06/08/17 4:23 AM) (06/07/17 2:15 AM) CHEM PANEL Most recent to 1 2 oldest [Reference Range]: Creatinine Lvl 3.00 mg/dL 3.14 mg/dL [0.50-1.40 mg/dL] *HI* *HI* (06/08/17 4:23 AM) (06/07/17 2:15 AM) eGFR 20 mL/min/1.73m2 1 19 mL/min/1.73m2 2 *NA* *NA* (06/08/17 4:23 AM) (06/07/17 2:15 AM) BUN [7-22 mg/dL] 59 mg/dL 63 mg/dL *HI* *HI* (06/08/17 4:23 AM) (06/07/17 2:15 AM) B/C Ratio [6-25] 20 20 (06/08/17 4:23 AM) (06/07/17 2:15 AM) Glucose Lvl [70-99 91 mg/dL 246 mg/dL mg/dL] (06/08/17 4:23 AM) *HI* (06/07/17 2:15 AM) Total Protein 5.9 g/dL 6.9 g/dL [6.4-8.4 g/dL] *LOW* (06/07/17 2:15 AM) (06/08/17 4:23 AM) Albumin Lvl [3.5-5.0 2.4 g/dL 2.5 g/dL g/dL] *LOW* *LOW* (06/08/17 4:23 AM) (06/07/17 2:15 AM) Globulin [2.7-4.2 3.5 g/dL 4.4 g/dL g/dL] (06/08/17 4:23 AM) *HI* (06/07/17 2:15 AM) A/G Ratio [0.7-1.6] 0.7 0.6 (06/08/17 4:23 AM) *LOW* (06/07/17 2:15 AM) Calcium Lvl 7.9 mg/dL 7.8 mg/dL [8.5-10.5 mg/dL] *LOW* *LOW* (06/08/17 4:23 AM) (06/07/17 2:15 AM) Phosphorus [2.5-4.5 3.3 mg/dL mg/dL] (06/07/17 2:15 AM) Magnesium Lvl 2.4 mg/dL 2.4 mg/dL [1.8-2.4 mg/dL] (06/08/17 4:23 AM) (06/07/17 2:15 AM) ALT [0-65 unit/L] 17 unit/L 22 unit/L (06/08/17 4:23 AM) (06/07/17 2:15 AM) AST [0-37 unit/L] 15 unit/L 19 unit/L (06/08/17 4:23 AM) (06/07/17 2:15 AM) Alk Phos [39-136 161 unit/L 186 unit/L unit/L] *HI* *HI* (06/08/17 4:23 AM) (06/07/17 2:15 AM) Bili Total [0.2-1.3 0.6 mg/dL 0.6 mg/dL mg/dL] (06/08/17 4:23 AM) (06/07/17 2:15 AM) Ammonia [<=45.0 37.0 uMol/L uMol/L] (06/07/17 2:43 AM) Lactic Acid Lvl 0.8 mMol/L [0.5-2.2 mMol/L] (06/07/17 2:43 AM) 1Result Comment: The eGFR is calculated using the [...] from the National Kid[employer] Disease Education Program ( NKDEP) which additionally recommends that when the eGFR is used in patients with extremes of body mass index for purposes of drug dosing, the eGFR should be mul tiplied by the estimated BMI. 2Result Comment: The eGFR is calculated using the [...] from the National Kidney Disease Education Program ( NKDEP) which additionally recommends that when the eGFR is used in patients with extremes of body mass index for purposes of drug dosing, the eGFR should be mul tiplied by the estimated BMI. CARDIAC ENZYMES Most recent to 1 2 oldest [Reference Range]: Total CK [12-191 112 unit/L unit/L] (06/07/17 2:15 AM) CK MB [0.5-3.6 3.6 ng/mL ng/mL] (06/07/17 2:15 AM) CK MB Index 3.2 [0.0-2.5] *HI* (06/07/17 2:15 AM) Troponin-I 0.03 ng/mL [0.00-0.40 ng/mL] (06/07/17 2:15 AM) URINE AND STOOL Most recent to 1 2 oldest [Reference Range]: UA Turbidity [Clear] Slight Slight *ABN* *ABN* (06/07/17 10:52 AM) (06/07/17 3:27 AM) UA Color Ltyellow Ltyellow *NA* *NA* (06/07/17 10:52 AM) (06/07/17 3:27 AM) UA pH [5.0-8.0] 5.0 5.0 (06/07/17 10:52 AM) (06/07/17 3:27 AM) UA Spec Grav 1.012 1.011 [<=1.030] (06/07/17 10:52 AM) (06/07/17 3:27 AM) UA Glucose [Negative 150 mg/dL 150 mg/dL mg/dL] *ABN* *ABN* (06/07/17 10:52 AM) (06/07/17 3:27 AM) UA Blood [Negative] Small Small *ABN* *ABN* (06/07/17 10:52 AM) (06/07/17 3:27 AM) UA Ketones [Negative Negative mg/dL Negative mg/dL mg/dL] *NA* *NA* (06/07/17 10:52 AM) (06/07/17 3:27 AM) UA Protein [Negative >=300 mg/dL >=300 mg/dL mg/dL] *ABN* *ABN* (06/07/17 10:52 AM) (06/07/17 3:27 AM) UA Urobilinogen <=1.0 mg/dL <=1.0 mg/dL [0.1-1.0 mg/dL] *NA* *NA* (06/07/17 10:52 AM) (06/07/17 3:27 AM) UA Bili [Negative] Negative Negative *NA* *NA* (06/07/17 10:52 AM) (06/07/17 3:27 AM) UA Leuk Est Negative Negative [Negative] (06/07/17 10:52 AM) (06/07/17 3:27 AM) UA Nitrite Negative Negative [Negative] (06/07/17 10:52 AM) (06/07/17 3:27 AM) UA WBC [0-5 /HPF] <1 /HPF 2 /HPF (06/07/17 10:52 AM) (06/07/17 3:27 AM) UA RBC [0-2 /HPF] 6 /HPF 3 /HPF *HI* *HI* (06/07/17 10:52 AM) (06/07/17 3:27 AM) UA Bacteria [None Few /HPF Seen /HPF] *NA* (06/07/17 3:27 AM) UA Sq Epi None Seen None Seen *NA* *NA* (06/07/17 10:52 AM) (06/07/17 3:27 AM) UA Amorph [place] [None Occasional /HPF Seen /HPF] *NA* (06/07/17 3:27 AM) UA Mucus [None Seen Few /LPF Few /LPF /LPF] *NA* *NA* (06/07/17 10:52 AM) (06/07/17 3:27 AM) HEMATOLOGY Most recent to 1 2 oldest [Reference Range]: WBC [3.7-10.4 K/CMM] 5.6 K/CMM 9.3 K/CMM (06/08/17 4:23 AM) (06/07/17 2:15 AM) RBC [4.70-6.10 2.80 M/CMM 2.96 M/CMM M/CMM] *LOW* *LOW* (06/08/17 4:23 AM) (06/07/17 2:15 AM) Hgb [14.0-18.0 g/dL] 8.8 g/dL 9.2 g/dL *LOW* *LOW* (06/08/17 4:23 AM) (06/07/17 2:15 AM) Hct [42.0-54.0 %] 26.6 % 28.5 % *LOW* *LOW* (06/08/17 4:23 AM) (06/07/17 2:15 AM) MCV [80.0-94.0 fL] 95.2 fL 96.4 fL *HI* *HI* (06/08/17 4:23 AM) (06/07/17 2:15 AM) MCH [27.0-31.0 pg] 31.5 pg 31.0 pg *HI* (06/07/17 2:15 AM) (06/08/17 4:23 AM) MCHC [32.0-36.0 33.1 g/dL 32.2 g/dL g/dL] (06/08/17 4:23 AM) (06/07/17 2:15 AM) RDW [11.5-14.5 %] 16.7 % 16.3 % *HI* *HI* (06/08/17 4:23 AM) (06/07/17 2:15 AM) MPV [7.4-10.4 fL] 9.2 fL 9.0 fL (06/08/17 4:23 AM) (06/07/17 2:15 AM) Platelet [133-450 151 K/CMM 137 K/CMM K/CMM] (06/08/17 4:23 AM) (06/07/17 2:15 AM) Segs [45.0-75.0 %] 65.2 % 83.7 % (06/08/17 4:23 AM) *HI* (06/07/17 2:15 AM) Lymphocytes 19.4 % 8.0 % [20.0-40.0 %] *LOW* *LOW* (06/08/17 4:23 AM) (06/07/17 2:15 AM) Monocytes [2.0-12.0 10.7 % 7.3 % %] (06/08/17 4:23 AM) (06/07/17 2:15 AM) Eosinophils [0.0-4.0 3.9 % 0.5 % %] (06/08/17 4:23 AM) (06/07/17 2:15 AM) Basophils [0.0-1.0 0.8 % 0.5 % %] (06/08/17 4:23 AM) (06/07/17 2:15 AM) Segs-Bands # 3.6 K/CMM 7.8 K/CMM [1.5-8.1 K/CMM] (06/08/17 4:23 AM) (06/07/17 2:15 AM) Lymphocytes # 1.1 K/CMM 0.7 K/CMM [1.0-5.5 K/CMM] (06/08/17 4:23 AM) *LOW* (06/07/17 2:15 AM) Monocytes # [0.0-0.8 0.6 K/CMM 0.7 K/CMM K/CMM] (06/08/17 4:23 AM) (06/07/17 2:15 AM) Eosinophils # 0.2 K/CMM [0.0-0.5 K/CMM] (06/08/17 4:23 AM) PT [12.0-14.7 15.2 seconds seconds] *HI* (06/07/17 2:15 AM) INR [0.85-1.17] 1.19 *HI* (06/07/17 2:15 AM) PTT [22.9-35.8 47.7 seconds seconds] *HI* (06/07/17 2:15 AM) Immunizations Given and Recorded Vaccine Date Status Refusal Reason pneumococcal 13-valent vaccine 02/09/17 Given influenza virus vaccine, inactivated 02/09/17 Given Procedures Procedure Date Related Diagnosis Body Site Status Stent placement Completed Social History Social History Type Response Smoking Status Never smoker; Previous treatment: None; Ready to change: No; Concerns about tobacco use in household: No; Exposure to Tobacco Smoke None; Cigarette Smoking Last 365 Days No; Reg Smoking Cessation Counseling No entered on: 06/07/17 Assessment and Plan Extracted from: Title: Discharge Summary * Author: April Arthur MD Date: 06/08/17 Discharge Plan Discharge Summary Plan Discharge Status: stable. Discharge instructions given: to patient. Discharge disposition: discharge to home (into the care of family member, self care). Prescriptions: continue same medications, written and given to patient. Diagnosis ARF. Course Improving. Education and Follow-up Counseled: patient. Extracted from: Title: Addendum to H&P Author: Jose Enriquez MD Date: 06/07/17 I have seen and examined the patient. I agree with the history and physical per Dr. Griffin. I agree with the plan. Briefly the patient was admitted due to a fall. Per the patient, he had probably taken his insulin and not eaten and he felt that he might be hypoglycemic. He is not entirely aware as to why he was brought to the hospital. He does report recently having a rash on his left back suggestive of shingles. He has not been started on treatment. The patient was recently seen in February 2017 for TIA/strokelike symptoms. A workup was done at that time he was were stratified started on appropriate medications. I requested neurology to see the patient on this admission. Recommendations are as documnted. The patient is also noted to have dysphagia which is not exactly new diagnosis. He is to undergo a modified barium swallow on tomorrow per speech language therapy. Remain n.p.o. at this time. Patient's blood sugars are quite high. Continue sliding scale insulin. Have PT and OT see the patient for further recommendations. The patient is being made observation. I anticipate discharge after 1 midnight.
--- OUTSIDE RECORDS SUMMARY | 2018-07-26 20:22 | XMS REPORT | Summary of Care ---
Author Author [facility] Organization [facility] Address Unknown Phone Unavailable Encounter DAYAN Perez(MANSOOR) [id number] Date(s): 02/08/17 - 02/11/17 [facility] [id number] [place] [address]- Discharge Disposition: Home or Self Care Attending Physician: Sanya Kumar MD Admitting Physician: Sanya Kumar MD Vital Signs 1 2 3 Most recent to oldest [Reference Range]: 175.26 cm (02/08/17 9:56 PM) 177.8 cm (02/08/17 4:07 PM) Height 98.0 DegF (02/11/17 11:20 AM) 98.1 DegF (02/11/17 8:03 AM) 97.8 DegF (02/11/17 4:00 AM) Temperature Oral [96.4-99.1 DegF] 153/77 mmHg *HI* (02/11/17 11:20 AM) 157/80 mmHg *HI* (02/11/17 8:03 AM) 121/61 mmHg (02/11/17 4:00 AM) Blood Pressure [90-140/60-90 mmHg] 16 BRMIN (02/11/17 11:20 AM) 16 BRMIN (02/11/17 8:03 AM) 16 BRMIN (02/11/17 4:00 AM) Respiratory Rate [14-20 BRMIN] 60 bpm (02/11/17 11:20 AM) 57 bpm *LOW* (02/11/17 8:03 AM) 58 bpm *LOW* (02/11/17 4:00 AM) Peripheral Pulse Rate [60-100 bpm] 87.5 kg (02/08/17 9:56 PM) 104.545 kg (02/08/17 4:07 PM) Weight 28.49 m2 (02/08/17 9:56 PM) 33.07 m2 (02/08/17 4:07 PM) Body Mass Index Problem List No data available for this section Allergies, Adverse Reactions, Alerts Substance Reaction Severity Status NKDA Active Medications acetaminophen 650 mg, 2 tab, Route: PO, Drug form: TAB, Q4H, Dosing Weight 104.545, kg, PRN Pa in 1-3/Temp > 99.5 F, Start date: 02/08/17 20:26:00 CDT, Duration: 30 day, Stop date: 03/10/17 20:25:00 HARD TILE SETTER Notes: Do not exceed 4 gm/day. (Same as: Tylenol) Start Date: 02/08/17 Stop Date: 02/11/17 Status: Discontinued aspirin 81 mg tablet, chewable 81 mg=1 tab, CHEW, Daily, 0 Refill(s) Start Date: 02/08/17 Status: Ordered aspirin 81 mg tablet, enteric coated 81 mg, 1 tab, Route: PO, Drug form: ECTAB, Daily, Dosing Weight 104.545, kg, Sta rt date: 02/08/17 21:00:00 CDT, Duration: 30 day, Stop date: 03/10/17 9:00:00 CS T Notes: Do not crush or chew.(Same As: Ecotrin) Start Date: 02/08/17 Stop Date: 02/11/17 Status: Discontinued atorvastatin 80 mg oral tablet 80 mg=1 tab, PO, Daily, 0 Refill(s) Start Date: 02/08/17 Status: Ordered bisacodyl 10 mg, 1 supp, Route: CA, Drug form: SUPP, Daily, Dosing Weight 104.545, kg, PRN Constipation, Start date: 02/08/17 20:26:00 CDT, Duration: 30 day, Stop date: 05/10/16 20:25:00 HARD TILE SETTER Notes: (Same As: Dulcolax, Bisco-Lax) Start Date: 02/08/17 Stop Date: 02/11/17 Status: Discontinued ciprofloxacin 500 mg, 1 tab, Route: PO, Drug form: TAB, [id number], Dosing Weight 87.5, kg, Start date: 02/09/17 1:00:00 CDT, Duration: 30 day, Stop date: 03/10/17 13:00:00 HARD TILE SETTER, ABX Indication: Skin/Soft Tissue Infection Notes: May interfere w/enteral feedings - Take 1 hr before or 2 hrs after anta cids, dairy pdt & minerals. On empty stomach. Start Date: 02/09/17 Stop Date: 02/09/17 Status: Discontinued ciprofloxacin 500 mg oral tablet 500 mg=1 tab, PO, Q12H, 0 Refill(s) Start Date: 02/08/17 Stop Date: 02/11/17 Status: Discontinued clindamycin 300 mg, 1 cap, Route: PO, Drug form: CAP, [id number], Dosing Weight 104.545, kg, Sta rt date: 02/08/17 21:00:00 CDT, Duration: 5 day, Stop date: 02/13/17 15:00:00 CS T, ABX Indication: Skin/Soft Tissue Infection Notes: (Same As: Cleocin) Start Date: 02/08/17 Stop Date: 02/11/17 Status: Discontinued clindamycin 150 mg, PO, Q6H, 2 capsules, 0 Refill(s) Start Date: 02/08/17 Status: Ordered Dextrose 50% Syringe 25 gm, 50 mL, Route: IVP, Drug Form: INJ, Dosing Weight 104.545, kg, PRN, PRN Bl ood Glucose Results, Start date: 02/08/17 20:35:00 CDT, Duration: 30 day, Stop d ate: 03/10/17 19:34:00 HARD TILE SETTER Start Date: 02/08/17 Stop Date: 02/11/17 Status: Discontinued Dextrose 50% Syringe 12.5 gm, 25 mL, Route: IVP, Drug Form: INJ, Dosing Weight 104.545, kg, PRN, PRN Blood Glucose Results, Start date: 02/08/17 20:35:00 CDT, Duration: 30 day, Stop date: 03/10/17 19:34:00 HARD TILE SETTER Start Date: 02/08/17 Stop Date: 02/11/17 Status: Discontinued furosemide 40 mg oral tablet 80 mg=2 tab, PO, QAM, 0 Refill(s) Start Date: 02/08/17 Stop Date: 02/11/17 Status: Discontinued furosemide 40 mg oral tablet 40 mg=1 tab, PO, QPM, 0 Refill(s) Start Date: 02/08/17 Stop Date: 02/11/17 Status: Discontinued gabapentin 300 mg oral capsule 300 mg=1 cap, PO, BID, 0 Refill(s) Start Date: 02/08/17 Stop Date: 02/11/17 Status: Discontinued gabapentin 300 mg oral capsule 300 mg, 1 cap, Route: PO, Drug form: CAP, Q12H, Dosing Weight 87.5, kg, Start da te: 02/09/17 9:00:00 CDT, Duration: 30 day, Stop date: 03/10/17 21:00:00 HARD TILE SETTER Notes: (Same as: Neurontin) Start Date: 02/09/17 Stop Date: 02/11/17 Status: Discontinued glucagon 1 mg, Route: IM, Drug form: PDR/INJ, PRN, Dosing Weight 104.545, kg, PRN Blood G lucose Results, Start date: 02/08/17 20:35:00 CDT, Duration: 30 day, Stop date: 03/10/17 19:34:00 HARD TILE SETTER Start Date: 02/08/17 Stop Date: 02/11/17 Status: Discontinued Humalog 10 unit, 0.1 mL, Route: SUB-Q, Drug form: SOLN, TID-Before Meals, Start date: 7:30:00 CDT, Duration: 30 day, Stop date: 03/10/17 16:30:00 HARD TILE SETTER Notes: Roll in palms of hands gently; Do not shake `vigorously. (Same as: Hesham og )"Single Patient Use Only "WASTE: F/P - Black; E - [employer] Trash Bin Stabl e for 28 days at room temperature.Expires in days from Date Start Date: 02/09/17 Stop Date: 02/11/17 Status: Discontinued hydrALAZINE 10 mg, 0.5 mL, Route: IVP, Drug form: INJ, Q6H, Dosing Weight 104.545, kg, PRN H ypertension, Start date: 02/08/17 20:35:00 CDT, Duration: 30 day, Stop date: 20:34:00 HARD TILE SETTER, FOR sbp > 180 MM Notes: (Same as: Apresoline)Push over 5 minutes Start Date: 02/08/17 Stop Date: 02/11/17 Status: Discontinued hydrALAZINE 50 mg oral tablet 50 mg=1 tab, PO, Q8H, 0 Refill(s) Start Date: 02/08/17 Stop Date: 02/11/17 Status: Discontinued hydrALAZINE 50 mg oral tablet 50 mg, 1 tab, Route: PO, Drug form: TAB, Q8H, Dosing Weight 87.5, kg, Start date : 02/09/17 0:00:00 CDT, Duration: 30 day, Stop date: 03/10/17 16:00:00 HARD TILE SETTER Start Date: 02/09/17 Stop Date: 02/09/17 Status: Discontinued influenza virus vaccine, inactivated 0.5 mL, Route: IM, Drug Form: SUSP, Daily, Start date: 02/09/17 9:00:00 CDT, Dur ation: 1 doses or times, Stop date: 02/09/17 9:00:00 CDT Notes: (Same as: Fluzone Quadrivalent, Fluarix Quadrivalent)For 3 years of age a nd older (0.5 mL IM)Shake well before use Start Date: 02/09/17 Stop Date: 02/09/17 Status: Completed insulin lispro 5 unit, 0.05 mL, Route: SUB-Q, Drug form: SOLN, TID-Before Meals, Dosing Weight 104.545, kg, PRN Blood Glucose Results, Start date: 02/08/17 20:35:00 CDT, Durat ion: 30 day, Stop date: 03/10/17 20:34:00 HARD TILE SETTER Notes: Roll in palms of hands gently; Do not shake `vigorously. (Same as: Hesham og )"Single Patient Use Only "WASTE: F/P - Black; E - [employer] Trash Bin Stabl e for 28 days at room temperature.Expires in days from Date Start Date: 02/08/17 Stop Date: 02/11/17 Status: Discontinued insulin lispro 3 unit, 0.03 mL, Route: SUB-Q, Drug form: SOLN, TID-Before Meals, Dosing Weight 104.545, kg, PRN Blood Glucose Results, Start date: 02/08/17 20:35:00 CDT, Durat ion: 30 day, Stop date: 03/10/17 20:34:00 HARD TILE SETTER Notes: Roll in palms of hands gently; Do not shake `vigorously. (Same as: Humal og )"Single Patient Use Only "WASTE: F/P - Black; E - [employer] Trash Bin Stabl e for 28 days at room temperature.Expires in days from Date Start Date: 02/08/17 Stop Date: 02/11/17 Status: Discontinued insulin lispro 4 unit, 0.04 mL, Route: SUB-Q, Drug form: SOLN, TID-Before Meals, Dosing Weight 104.545, kg, PRN Blood Glucose Results, Start date: 02/08/17 20:35:00 CDT, Durat ion: 30 day, Stop date: 03/10/17 20:34:00 HARD TILE SETTER Notes: Roll in palms of hands gently; Do not shake `vigorously. (Same as: Humal og )"Single Patient Use Only "WASTE: F/P - Black; E - [employer] Trash Bin Stabl e for 28 days at room temperature.Expires in days from Date Start Date: 02/08/17 Stop Date: 02/11/17 Status: Discontinued insulin lispro 1 unit, 0.01 mL, Route: SUB-Q, Drug form: SOLN, TID-Before Meals, Dosing Weight 104.545, kg, PRN Blood Glucose Results, Start date: 02/08/17 20:35:00 CDT, Durat ion: 30 day, Stop date: 03/10/17 20:34:00 HARD TILE SETTER Notes: Roll in palms of hands gently; Do not shake `vigorously. (Same as: Humal og )"Single Patient Use Only "WASTE: F/P - Black; E - [employer] Trash Bin Stabl e for 28 days at room temperature.Expires in days from Date Start Date: 02/08/17 Stop Date: 02/11/17 Status: Discontinued insulin lispro 2 unit, 0.02 mL, Route: SUB-Q, Drug form: SOLN, TID-Before Meals, Dosing Weight 104.545, kg, PRN Blood Glucose Results, Start date: 02/08/17 20:35:00 CDT, Durat ion: 30 day, Stop date: 03/10/17 20:34:00 HARD TILE SETTER Notes: Roll in palms of hands gently; Do not shake `vigorously. (Same as: Hesham og )"Single Patient Use Only "WASTE: F/P - Black; E - [employer] Trash Bin Stabl e for 28 days at room temperature.Expires in days from Date Start Date: 02/08/17 Stop Date: 02/11/17 Status: Discontinued insulin lispro 3 unit, 0.03 mL, Route: SUB-Q, Drug form: SOLN, Bedtime, Dosing Weight 104.545, kg, PRN Blood Glucose Results, Start date: 02/08/17 20:35:00 CDT, Duration: 30 d ay, Stop date: 03/10/17 20:34:00 HARD TILE SETTER Notes: Roll in palms of hands gently; Do not shake `vigorously. (Same as: Hesham og )"Single Patient Use Only "WASTE: F/P - Black; E - [employer] Trash Bin Stabl e for 28 days at room temperature.Expires in days from Date Start Date: 02/08/17 Stop Date: 02/11/17 Status: Discontinued insulin lispro 4 unit, 0.04 mL, Route: SUB-Q, Drug form: SOLN, Bedtime, Dosing Weight 104.545, kg, PRN Blood Glucose Results, Start date: 02/08/17 20:35:00 CDT, Duration: 30 d ay, Stop date: 03/10/17 20:34:00 HARD TILE SETTER Notes: Roll in palms of hands gently; Do not shake `vigorously. (Same as: Humregi og )"Single Patient Use Only "WASTE: F/P - Black; E - [employer] Trash Bin Stabl e for 28 days at room temperature.Expires in days from Date Start Date: 02/08/17 Stop Date: 02/11/17 Status: Discontinued insulin lispro 1 unit, 0.01 mL, Route: SUB-Q, Drug form: SOLN, Bedtime, Dosing Weight 104.545, kg, PRN Blood Glucose Results, Start date: 02/08/17 20:35:00 CDT, Duration: 30 d ay, Stop date: 03/10/17 20:34:00 HARD TILE SETTER Notes: Roll in palms of hands gently; Do not shake `vigorously. (Same as: Humal og )"Single Patient Use Only "WASTE: F/P - Black; E - Municipal Trash Bin Stabl e for 28 days at room temperature.Expires in days from Date Start Date: 02/08/17 Stop Date: 02/11/17 Status: Discontinued insulin lispro 2 unit, 0.02 mL, Route: SUB-Q, Drug form: SOLN, Bedtime, Dosing Weight 104.545, kg, PRN Blood Glucose Results, Start date: 02/08/17 20:35:00 CDT, Duration: 30 d ay, Stop date: 03/10/17 20:34:00 HARD TILE SETTER Notes: Roll in palms of hands gently; Do not shake `vigorously. (Same as: Hesham og )"Single Patient Use Only "WASTE: F/P - Black; E - [employer] Trash Bin Stabl e for 28 days at room temperature.Expires in days from Date Start Date: 02/08/17 Stop Date: 02/11/17 Status: Discontinued Lantus 100 units/mL 25 unit, SUB-Q, Bedtime, # 10 mL, 0 Refill(s), [id number] Start Date: 02/11/17 Stop Date: 03/13/17 Status: Ordered Lantus 100 units/mL 34 units, SUB-Q, Bedtime, 0 Refill(s) Start Date: 02/08/17 Stop Date: 02/11/17 Status: Discontinued Lantus 100 units/mL 25 unit, 0.25 mL, Route: SUB-Q, Drug form: SOLN, Bedtime, Dosing Weight 87.5, kg , Start date: 02/09/17 0:03:00 CDT, Duration: 30 day, Stop date: 03/10/17 21:00: 00 HARD TILE SETTER Notes: (Same as: Lantus)Do not hold insulin without contacting prescriberWASTE: F/P - Black; E - Municipal Trash Bin "single patient use only" Start Date: 02/09/17 Stop Date: 02/11/17 Status: Discontinued Lipitor 80 mg, 2 tab, Route: PO, Drug form: TAB, Bedtime, Dosing Weight 104.545, kg, Sta rt date: 02/08/17 21:00:00 CDT, Duration: 30 day, Stop date: 03/09/17 21:00:[address] Notes: (Same as: Lipitor) Start Date: 02/08/17 Stop Date: 02/11/17 Status: Discontinued lisinopril 20 mg, Route: PO, Drug form: TAB, BID, Dosing Weight 87.5, kg, Start date: 02/09 9:00:00 CDT, Duration: 30 day, Stop date: 03/10/17 17:00:00 HARD TILE SETTER Start Date: 02/09/17 Stop Date: 02/09/17 Status: Canceled lisinopril 20 mg oral tablet 20 mg=1 tab, PO, BID, 0 Refill(s) Start Date: 02/08/17 Stop Date: 02/11/17 Status: Discontinued metolazone 2.5 mg oral tablet 2.5 mg=1 tab, PO, BID, 0 Refill(s) Start Date: 02/08/17 Status: Ordered metolazone 2.5 mg oral tablet 2.5 mg, 1 tab, Route: PO, Drug form: TAB, BID, Dosing Weight 87.5, kg, Start sheryl e: 02/09/17 9:00:00 CDT, Duration: 30 day, Stop date: 03/10/17 17:00:00 HARD TILE SETTER Notes: (Same as: Zaroxolyn) Start Date: 02/09/17 Stop Date: 02/11/17 Status: Discontinued NovoLOG 10 unit, Route: SUB-Q, Drug form: SOLN, TID-Before Meals, Dosing Weight 87.5, kg , Start date: 02/09/17 7:30:00 CDT, Duration: 30 day, Stop date: 03/10/17 16:30: 00 HARD TILE SETTER Start Date: 02/09/17 Stop Date: 02/09/17 Status: Deleted NovoLOG 100 units/mL 10 unit, SUB-Q, TID-Before Meals, # 10 mL, 0 Refill(s) Start Date: 02/08/17 Status: Ordered ondansetron 4 mg, 2 mL, Route: IVP, Drug form: INJ, Q8H, Dosing Weight 104.545, kg, PRN Naus ea & Vomiting, Start date: 02/08/17 20:26:00 CDT, Duration: 30 day, Stop date: 03/10/17 20:25:00 HARD TILE SETTER Notes: (Same as: Taylor) MEDICATION WASTE Product Size: 4 mgProduct Was lam: ___ mg Start Date: 02/08/17 Stop Date: 02/11/17 Status: Discontinued pneumococcal 13-valent vaccine 0.5 mL, Route: IM, Drug Form: INJ, Daily, Start date: 02/09/17 9:00:00 CDT, Dura tion: 1 doses or times, Stop date: 02/09/17 9:00:00 CDT Notes: Shake well prior to use (Same as: Prevnar 13) Start Date: 02/09/17 Stop Date: 02/09/17 Status: Completed potassium chloride 10 mEq oral tablet, extended release 10 mEq=1 tab, PO, BID, 0 Refill(s) Start Date: 02/08/17 Stop Date: 02/11/17 Status: Discontinued potassium chloride 10 mEq oral tablet, extended release 10 mEq=1 tab, PO, BID, 0 Refill(s) Start Date: 02/08/17 Stop Date: 02/11/17 Status: Discontinued Saline Flush 0.9% 10 mL, Route: IVP, Drug Form: INJ, Dosing Weight 104.545, kg, PRN, PRN Line Flus h, Start date: 02/08/17 16:21:00 CDT, Duration: 30 day, Stop date: 03/10/17 15:2 0:00 HARD TILE SETTER Notes: (Same as: BD Posiflush) Start Date: 02/08/17 Stop Date: 02/11/17 Status: Discontinued Saline Flush 0.9% 10 ml, Route: IVP, Drug Form: INJ, Dosing Weight 104.545, kg, PRN, PRN Line Flus h, Start date: 02/08/17 20:26:00 CDT, Duration: 30 day, Stop date: 03/10/17 19:2 5:00 HARD TILE SETTER Start Date: 02/08/17 Stop Date: 02/08/17 Status: Deleted Saline Flush 0.9% 10 ml, Route: IVP, Drug Form: INJ, Dosing Weight 104.545, kg, Q12H, Start date: 02/08/17 21:00:00 CDT, Duration: 30 day, Stop date: 03/10/17 9:00:00 HARD TILE SETTER Notes: (Same as: BD Posiflush) Start Date: 02/08/17 Stop Date: 02/11/17 Status: Discontinued Results ELECTROLYTES 1 2 3 Most recent to oldest [Reference Range]: 141 mEq/L (02/10/17 4:56 AM) 140 mEq/L (02/09/17 6:36 AM) 140 mEq/L (02/08/17 4:49 PM) Sodium Lvl [135-145 mEq/L] 3.5 mEq/L (02/10/17 4:56 AM) 3.8 mEq/L (02/09/17 6:36 AM) 3.3 mEq/L *LOW* (02/08/17 4:49 PM) Potassium Lvl [3.5-5.1 mEq/L] 106 mEq/L (02/10/17 4:56 AM) 104 mEq/L (02/09/17 6:36 AM) 105 mEq/L (02/08/17 4:49 PM) Chloride Lvl [95-109 mEq/L] 28 mEq/L (02/10/17 4:56 AM) 27 mEq/L (02/09/17 6:36 AM) 29 mEq/L (02/08/17 4:49 PM) CO2 [24-32 mEq/L] 10.5 mEq/L (02/10/17 4:56 AM) 12.8 mEq/L (02/09/17 6:36 AM) 9.3 mEq/L *LOW* (02/08/17 4:49 PM) AGAP [10.0-20.0 mEq/L] CHEM PANEL 1 2 3 Most recent to oldest [Reference Range]: 2.20 mg/dL *HI* (02/10/17 4:56 AM) 2.33 mg/dL *HI* (02/09/17 6:36 AM) 2.50 mg/dL *HI* (02/08/17 4:49 PM) Creatinine Lvl [0.50-1.40 mg/dL] 30 mL/min/1.73m2 1 *NA* (02/10/17 4:56 AM) 28 mL/min/1.73m2 2 *NA* (02/09/17 6:36 AM) 26 mL/min/1.73m2 3 *NA* (02/08/17 4:49 PM) eGFR 38 mg/dL *HI* (02/10/17 4:56 AM) 32 mg/dL *HI* (02/09/17 6:36 AM) 29 mg/dL *HI* (02/08/17 4:49 PM) BUN [7-22 mg/dL] 14 (02/09/17 6:36 AM) B/C Ratio [6-25] 85 mg/dL (02/10/17 4:56 AM) 262 mg/dL *HI* (02/09/17 6:36 AM) 78 mg/dL (02/08/17 4:49 PM) Glucose Lvl [70-99 mg/dL] 6.1 g/dL *LOW* (02/09/17 6:36 AM) Total Protein [6.4-8.4 g/dL] 2.1 g/dL *LOW* (02/09/17 6:36 AM) Albumin Lvl [3.5-5.0 g/dL] 4.0 g/dL (02/09/17 6:36 AM) Globulin [2.7-4.2 g/dL] 0.5 *LOW* (02/09/17 6:36 AM) A/G Ratio [0.7-1.6] 7.6 mg/dL *LOW* (02/10/17 4:56 AM) 8.0 mg/dL *LOW* (02/09/17 6:36 AM) 8.2 mg/dL *LOW* (02/08/17 4:49 PM) Calcium Lvl [8.5-10.5 mg/dL] 12 unit/L (02/09/17 6:36 AM) ALT [0-65 unit/L] 15 unit/L (02/09/17 6:36 AM) AST [0-37 unit/L] 121 unit/L (02/09/17 6:36 AM) Alk Phos [39-136 unit/L] 0.6 mg/dL (02/09/17 6:36 AM) Bili Total [0.2-1.3 mg/dL] 1Result Comment: The eGFR is calculated using [...] be mul tiplied by the estimated BMI. 3Result Comment: The eGFR is calculated using the [...] tiplied by the estimated BMI. CARDIAC ENZYMES 1 2 3 Most recent to oldest [Reference Range]: 81 unit/L (02/08/17 4:49 PM) Total CK [12-191 unit/L] 3.1 ng/mL (02/08/17 4:49 PM) CK MB [0.5-3.6 ng/mL] 3.8 *HI* (02/08/17 4:49 PM) CK MB Index [0.0-2.5] 0.05 ng/mL (02/08/17 4:49 PM) Troponin-I [0.00-0.40 ng/mL] LIPIDS 1 2 3 Most recent to oldest [Reference Range]: 5.41 (02/08/17 4:49 PM) CHD Risk [4.00-7.30] 303 mg/dL *HI* (02/08/17 4:49 PM) Chol [<=199 mg/dL] 133 mg/dL (02/08/17 4:49 PM) Trig [<=149 mg/dL] 56 mg/dL *LOW* (02/08/17 4:49 PM) HDL [>=61 mg/dL] 220 mg/dL *HI* (02/08/17 4:49 PM) LDL (Calculated) [<=99 mg/dL] 27 *NA* (02/08/17 4:49 PM) VLDL SPECIAL CHEMISTRY 1 2 3 Most recent to oldest [Reference Range]: 12.9 % *HI* (02/08/17 4:49 PM) Hgb A1C [<=5.6 %] HEMATOLOGY 1 2 3 Most recent to oldest [Reference Range]: 6.8 K/CMM (02/10/17 4:56 AM) 9.4 K/CMM (02/08/17 4:49 PM) WBC [3.7-10.4 K/CMM] 3.46 M/CMM *LOW* (02/10/17 4:56 AM) 3.83 M/CMM *LOW* (02/08/17 4:49 PM) RBC [4.70-6.10 M/CMM] 11.0 g/dL *LOW* (02/10/17 4:56 AM) 11.9 g/dL *LOW* (02/08/17 4:49 PM) Hgb [14.0-18.0 g/dL] 32.3 % *LOW* (02/10/17 4:56 AM) 35.9 % *LOW* (02/08/17 4:49 PM) Hct [42.0-54.0 %] 93.3 fL (02/10/17 4:56 AM) 93.7 fL (02/08/17 4:49 PM) MCV [80.0-94.0 fL] 31.7 pg *HI* (02/10/17 4:56 AM) 31.1 pg *HI* (02/08/17 4:49 PM) MCH [27.0-31.0 pg] 34.0 g/dL (02/10/17 4:56 AM) 33.2 g/dL (02/08/17 4:49 PM) MCHC [32.0-36.0 g/dL] 13.6 % (02/10/17 4:56 AM) 13.6 % (02/08/17 4:49 PM) RDW [11.5-14.5 %] 224 K/CMM (02/10/17 4:56 AM) 251 K/CMM (02/08/17 4:49 PM) Platelet [133-450 K/CMM] 8.0 fL (02/10/17 4:56 AM) 8.4 fL (02/08/17 4:49 PM) MPV [7.4-10.4 fL] 62.8 % (02/10/17 4:56 AM) 86.6 % *HI* (02/08/17 4:49 PM) Segs [45.0-75.0 %] 20.6 % (02/10/17 4:56 AM) 7.0 % *LOW* (02/08/17 4:49 PM) Lymphocytes [20.0-40.0 %] 9.6 % (02/10/17 4:56 AM) 5.6 % (02/08/17 4:49 PM) Monocytes [2.0-12.0 %] 5.5 % *HI* (02/10/17 4:56 AM) 0.2 % (02/08/17 4:49 PM) Eosinophils [0.0-4.0 %] 1.5 % *HI* (02/10/17 4:56 AM) 0.6 % (02/08/17 4:49 PM) Basophils [0.0-1.0 %] 4.3 K/CMM (02/10/17 4:56 AM) 8.2 K/CMM *HI* (02/08/17 4:49 PM) Segs-Bands # [1.5-8.1 K/CMM] 1.4 K/CMM (02/10/17 4:56 AM) 0.7 K/CMM *LOW* (02/08/17 4:49 PM) Lymphocytes # [1.0-5.5 K/CMM] 0.6 K/CMM (02/10/17 4:56 AM) 0.5 K/CMM (02/08/17 4:49 PM) Monocytes # [0.0-0.8 K/CMM] 0.4 K/CMM (02/10/17 4:56 AM) Eosinophils # [0.0-0.5 K/CMM] 0.1 K/CMM (02/10/17 4:56 AM) 0.1 K/CMM (02/08/17 4:49 PM) Basophils # [0.0-0.2 K/CMM] 13.3 seconds (02/08/17 4:49 PM) PT [12.0-14.7 seconds] 1.01 (02/08/17 4:49 PM) INR [0.85-1.17] 37.1 seconds *HI* (02/08/17 4:49 PM) PTT [22.9-35.8 seconds] Immunizations Given and Recorded Vaccine Date Status Refusal Reason influenza virus vaccine, inactivated 02/09/17 Given pneumococcal 13-valent vaccine 02/09/17 Given Procedures No data available for this section Social History Social History Type Response Smoking Status Never smoker; Previous treatment: None; Ready to change: No; Concerns about tobacco use in household: No; Exposure to Tobacco Smoke None; Cigarette Smoking Last 365 Days No; Reg Smoking Cessation Counseling No Assessment and Plan Extracted from: Title: Clinical Document Author: Sanya Kumar MD Date: 02/11/17 Date of admission: 01/29/2017 Date of discharge: 02/11/2017 Discharge diagnoses 1. Slurred speech 2. Hyperglycemia 3. Chronic kidney disease 4. Poorly controlled diabetes mellitus Hospital course Patient was initially brought in for evaluation of slurred speech and gait abnormality. He has a history of CVAs in the past. He had brain MRI, MRA of head and neck done which did not show any acute CVA or clinically significant stenosis. Neurology consultation was obtained. Echocardiogram was unrevealing. His symptoms improved with some IV fluids and improvement in his creatinine. Likely, symptoms are due to poorly controlled diabetes mellitus as his hemoglobin A1c is as high as 11.5. Worsening chronic kidney disease is another indication of poorly controlled long-term hyperglycemia. Therefore, patient is instructed to obtain tighter glucose control and closer follow-up with his primary care physician. He is made aware of his creatinine and kidney status. He has verbalized understanding. Patient seen and examined on the day of discharge. Discharge condition fair Discharge home Diabetic diet Please see discharge medicine form Please follow-up with primary care physician Addendum Correction date of admission is: 02/08/2017 by Sanya Kumar MD on 02/11/2017 17:33 Extracted from: Title: Clinical Document Author: Maria Isabel Crespo Date: 02/11/17 NEUROLOGY Progress Note - Daily [facility] Completed: Feb, 09:03 by Maria Isabel Crespo MD RM: 233 - 1P, SE [id number] FLETCHER [id number] (: 1950) M Attending: Sanya Kumar MDPhone: Service: Internal Medicine Reason for Admission: SLURRED SPEECH/ GAIT ABNORMALITY Working DRG: None Documented Code status: Full Code [Ordered]Current diet: Isolation: None Documented Allergies: NKDA SUBJECTIVE Patient seen and examined suggestive me doing overall much better than what he came in with but when he stands up he is feeling lightheaded which is something happening for long period of time according to patient. OBJECTIVE EXAM GEN - NAD HEENT - NCAT. MMM Ext - no c/c/e Skin - no rash Neuro: Mental status: AAOx3. Follows all commands. no language deficits Motor: 5/5 throughout Sensory: Decreased light touch pinprick up to mid barcenas. CN - PERRL, EOMI, no droop, facial sensation is normal., Tongue uvula midline, hearing grossly intact, Coordination - intact ftn, hts Abnormal movements: none Coordination [id number] is intact Gait patient stood up and felt lightheaded sat down. 24hr Labs 02/11 0723 POC Performing LocatioSee Note Glucose POC56 L 02/10 2049 POC Performing LocatioSee Note Glucose NCX864 H 02/10 1609 POC Performing LocatioSee Note Glucose AIR862 H 02/10 1542 POC Performing LocatioSee Note Glucose DJQ259 H 02/10 1135 POC Performing LocatioSee Note Glucose MMK426 [place] still necessary (Yes/No): Line still necessary (Yes/No): VitalsTmp(F)CvgorGBCEBdW6BWI5 02/11 08:0398.113707/061377--- 02/11 04:0097.696356/452770--- 02/11 00:0097.235180/090135--- 02/10 20:0097.274729/612961--- 02/10 16:24----01574/91--100--- 24 Hr Tmax: 98.1F (36.72c) at 02/11 08:03Vital Signs are the last 5 in the past 48 hours. DateWt(kg)Wt(lb)Ht(cm)Ht(in)Method 02/08 (initial)104.55 [id number] 70.00Estimated I&ORecordInOutBal 02/224hr Tot 10 0 10 02/124hr Tot 20 480 -460 Medications (25) Active Scheduled Meds (8): 02/08/17 aspirin (aspirin 81 mg tablet, enteric coated) 81 mg PO Daily 02/08/17 atorvastatin (Lipitor) 80 mg PO Bedtime 02/08/17 clindamycin 300 mg PO ABXQ6H 02/09/17 gabapentin (gabapentin 300 mg oral capsule) 300 mg PO Q12H 02/09/17 insulin glargine (Lantus 100 units/mL) 25 unit SUB-Q Bedtime 0 ml/hr 02/09/17 insulin lispro (Humalog) 10 unit SUB-Q TID-Before Meals 02/09/17 metolazone (metolazone 2.5 mg oral tablet) 2.5 mg PO BID 02/08/17 sodium chloride (Saline Flush 0.9%) 10 ml IVP Q12H Unscheduled Meds: None PRN Meds (17): 02/08/17 Dextrose 50% in Water IV (Dextrose 50% Syringe) 12.5 gm IVP PRN 02/08/17 Dextrose 50% in Water IV (Dextrose 50% Syringe) 25 gm IVP PRN 02/08/17 acetaminophen 650 mg PO Q4H 02/08/17 bisacodyl 10 mg CA Daily 02/08/17 glucagon 1 mg IM PRN 02/08/17 hydrALAZINE 10 mg IVP Q6H 02/08/17 insulin lispro 1 unit SUB-Q TID-Before Meals 02/08/17 insulin lispro 2 unit SUB-Q TID-Before Meals 02/08/17 insulin lispro 3 unit SUB-Q TID-Before Meals 02/08/17 insulin lispro 4 unit SUB-Q TID-Before Meals 02/08/17 insulin lispro 5 unit SUB-Q TID-Before Meals 02/08/17 insulin lispro 1 unit SUB-Q Bedtime 02/08/17 insulin lispro 2 unit SUB-Q Bedtime 02/08/17 insulin lispro 3 unit SUB-Q Bedtime 02/08/17 insulin lispro 4 unit SUB-Q Bedtime 02/08/17 ondansetron 4 mg IVP Q8H 02/08/17 sodium chloride (Saline Flush 0.9%) 10 mL IVP PRN One Time Meds: None Continuous Infusions: None ASSESSMENT 1. TIA 2. HLD 3. DMT2 - uncontrolled 4. CKD 5. CAD 6. HTN 7. Peripheral neuropathy most likely diabetic related. 8. Dizziness on standing needs to rule out orthostatic hypotension. PLAN & TREATMENT 1. Blood pressure needs to be monitored from the orthostatic point of view. 2. SCDs to lower extremity. 3. Workup has been reviewed seems to be unremarkable. 4. Continue aspirin and statin 5. 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
--- OUTSIDE RECORDS SUMMARY | 2018-07-26 20:23 | XMS REPORT | Encounter Summary ---
Author Organization Unknown Address [address] [place] [address] Phone [phone] Care Team Providers Care All Source Analyst Name Role Phone Dr. Ramonita Allan 3 [phone] Joe Garcia MD 82 [phone] Rick Jolly MD 114 [phone] Osvaldo Nugent 118 [phone] Jw Berrios MD (Endocrinology) 119 [phone] Archie Ward DPM 120 [phone] Travis Archuleta MD 129 [phone] [facility] 247 [phone] Reason for Visit AWV Annual Wellness Visit Male (VFP) Instructions 1. Adult health examination 2. Type II diabetes mellitus uncontrolled type 2 diabetes: care instructions 3. End stage renal failure on dialysis 4. Body mass index 25-29 - overweight learning about healthy weight 5. Advance directive discussed with patient advance care planning: care instructions 6. Depression screening 7. Benign prostatic hyperplasia 8. Screening for malignant neoplasm of colon 9. Incontinence of feces 10. Seasonal allergic rhinitis 11. Congestive heart failure 12. History of cerebrovascular accident 13. Stented coronary artery 14. Peripheral vascular disease 15. Diabetic neuropathy 16. Essential hypertension Discussion Note: None recorded. Plan of Care Patient Instructions It was good to see you in the office today for your Medicare Annual Wellness Visit. You have been provided some information on healthy nutrition, including a diet rich in fruits and vegetables, minimizing simple carbohydrates, salt, and saturated fats. I want to encourage regular cardiovascular exercise such as walking at least 30 minutes daily, 5 times per week. Please remember to schedule any preventive health measures that we talked about today. You have also been provided education on fall prevention and community- based lifestyle interventions to help reduce health risks and promote healthy living in your Annual Wellness folder. Screening Recommendations 1. Vaccines Pneumococcal: discussed today and information sent with patient in their Annual Wellness health folder Influenza: discussed today and information sent with patient in their Annual Wellness health folder Shingles: discussed today and information sent with patient in their Annual Wellness health folder Tetanus: discussed today and information sent with patient in their Annual Wellness health folder 2. Prostate Screening: discussed today and information sent with patient in their Annual Wellness health folder 3. Colorectal cancer Screening Colonoscopy: discussed today and information sent with patient in their Annual Wellness health folder Fecal Occult Blood: discussed today and information sent with patient in their Annual Wellness health folder 4. Bone Mass Measurement: discussed today 5. Eye Exam Screening: discussed today 6. Cholesterol Screening: discussed today 7. Diabetes Screening: discussed today It was good to see you in the office today for your Medicare Annual Wellness Visit. You have been provided some information on healthy nutrition, including a diet rich in fruits and vegetables, minimizing simple carbohydrates, salt, and saturated fats. I want to encourage regular cardiovascular exercise such as walking at least 30 minutes daily, 5 times per week. Please remember to schedule any preventive health measures that we talked about today. You have also been provided education on fall prevention and community- based lifestyle interventions to help reduce health risks and promote healthy living in your Annual Wellness folder. 7. Diabetes Screening: Your next check in: endocrinology consult05/04/18 Reminders Provider Appointments Est Patient 05/09/2018 4:00PM Ramonita Allan MD Lab None recorded. Referral None recorded. Procedures None recorded. Surgeries None recorded. Imaging None recorded. Medications Name Start Date atorvastatin 80 mg tablet Take 1 tablet every day by oral route at bedtime. carvedilol 3.125 mg tablet Take 1 tablet every day by oral route at bedtime. clonidine as needed clopidogrel 75 mg tablet Take 1 tablet every day by oral route. furosemide 40 mg tablet Take 1 tablet twice a day by oral route as needed. hydralazine 50 mg tablet Take 1 tablet every 8 hours by oral route. isosorbide dinitrate 30 mg tablet Take 1 tablet every day by oral route. Lantus Solostar U-100 Insulin 100 unit/mL (3 mL) subcutaneous pen Inject 24 units every day by subcutaneous route in the morning. loratadine 10 mg tablet TAKE 1 TABLET BY MOUTH EVERY DAY NEEDED lorazepam 2 mg tablet Take 1 tablet every day by oral route as needed. medroxyprogesterone 5 mg tablet TAKE 1 TABLET BY MOUTH EVERY DAY Novolog U-100 Insulin aspart 100 unit/mL subcutaneous solution Inject 7 units 3 times a day by subcutaneous route as needed for 30 days. OneTouch Delica Lancets 33 gauge OneTouch Verio Mid Control solution OneTouch Verio strips sevelamer carbonate 800 mg tablet Take 1 tablet 3 times a day by oral route for 90 days. tamsulosin 0.4 mg capsule TAKE 1 CAPSULE(S) EVERY DAY BY ORAL ROUTE. Ultra Thin Lancets 31 gauge Take 1 each every day by miscell. route for 90 days. Vitamin D2 50,000 unit capsule Take 1 capsule every week by oral route. Medications Administered None recorded. Vitals Height Weight BMI Blood Pressure 5 ft 9 in 188 lbs 27.8 kg/m2 120/76 mm[Hg] Lab Results Date Name Specimen Result Interpretation Description Value Range Status Address 03/28/2018 CMP, Serum or Plasma Alt 16 U/L 0-55 U/L Final [facility]: [address] Ast 21 U/L 5-34 U/L Final [facility]: [address] High Bun 37.9 mg/dL 8.4-25.7 mg/dL Final [facility]: [address] High Alk Phos 371 unit/L 40-150 unit/L Final [facility]: [address] High Glucose 306 mg/dL 70-99 mg/dL Final [facility]: [address] Low Albumin 3.1 g/dL 3.5-5.0 g/dL Final [facility]: [address] High Creatinine 3.72 mg/dL 0.72-1.25 mg/dL Final [facility]: [address] ABNORMAL eGFR Non- 16 mL/min/1.73m2 Final [facility]: [address] Total Bilirubin 1.2 mg/dL 0.2-1.2 mg/dL Final [facility]: [address] ABNORMAL eGFR - 20 mL/min/1.73m2 Final [facility]: [address] Low Sodium 135 mEq/L 136-145 mEq/L Final [facility]: [address] [place] [address], [place] Potassium 4.8 mEq/L 3.5-5.1 mEq/L Final [facility]: [address] Low Chloride 95 mmol/L 98-107 mmol/L Final [facility]: [address] [place] [address], [place] Total Protein 6.8 g/dL 6.4-8.3 g/dL Final [facility]: [address] Low Calcium 8.5 mg/dL 8.8-10.0 mg/dL Final [facility]: [address] High Co2 32.9 mmol/L 23.0-31.0 mmol/L Final [facility]: [address] [place] [address], [place] Anion Gap 7 calc Final [facility]: [address] [place] [address], [place] 03/28/2018 PSA, Serum or Plasma PSA, Total 0.49 NG/mL 0.00-4.00 NG/mL Final [facility]: [address] [place] [address], [place] 03/28/2018 HbA1C (Hemoglobin a1C), Blood High A1C W/eag 12.6 % 1.0- 5.7 % Final [facility]: [address] Average Blood Glucose 315 mg/dL Final [facility]: [address] [place] [address], [place] Allergies Code Code System Name Reaction Severity Status Onset NKDA Problems Name Status Onset Date Source Type II Diabetes Mellitus Uncontrolled Active 03/19/2017 Diabetic Neuropathy Active 03/19/2017 Essential Hypertension Active 03/19/2017 Congestive Heart Failure Active 03/19/2017 Peripheral Vascular Disease Active 03/19/2017 Chronic Kidney Disease Active 03/19/2017 Stented Coronary Artery Active 03/19/2017 History of Cerebrovascular Accident Active 03/21/2017 Benign Prostatic Hyperplasia Active 04/13/2017 Hypoglycemic State in Diabetes Active 05/26/2017 End Stage Renal Failure on Dialysis Active 12/13/2017 Hyperlipidemia Active Procedures Date Name Performed by 04/11/2017 Other Information not available 04/11/2005 Amputation Information not available 04/11/2004 Amputation Information not available Vaccine List Vaccine Type influenza, unspecified formulation 02/09/2017 pneumococcal conjugate PCV 13 02/09/2017 Tdap 04/11/2015 Social History Smoking Status Former Smoker (1 PPW) Past Encounters 04/25/2018 Adult Health Examination; Type II Diabetes Mellitus Uncontrolled; End Stage Renal Failure on Dialysis; Body Mass Index 25-29 - Overweight; Advance Directive Discussed with Patient; Depression Screening; Benign Prostatic Hyperplasia; Screening for Malignant Neoplasm of Colon; Incontinence of Feces; Seasonal Allergic Rhinitis; Congestive Heart Failure; History of Cerebrovascular Accident; Stented Coronary Artery; Peripheral Vascular Disease; Diabetic Neuropathy; Essential Hypertension Ramonita Allan MD: [address] [place] [address], Ph. 03/28/2018 Type II Diabetes Mellitus Uncontrolled; Body Mass Index 25-29 - Overweight; Benign Prostatic Hyperplasia; Screening for Malignant Neoplasm of Colon; Incontinence of Feces; Seasonal Allergic Rhinitis; End Stage Renal Failure on Dialysis; Stented Coronary Artery Ramonita Allan MD: [address] [place] [address], Ph. History of Present Illness Mini Cog Reported By: Patient Functional Ability: Personal/Social/ Draw a clock and write in the numbers in the correct place, and set the time to 10 minutes after 11 o'clock was completed correctly? No, 3 word recall: Your nurse or doctor will ask you to remember 3 words. In 5 minutes, they will ask you to repeat them. Patient recalled no words Note:67yo male presents with his for AWV. Last visit 03/28/18. Pt was at dialysis on Tuesday04/02/18 and dialysis needle moved & started bleeding under skin of left arm at site of AV fistula. Pt passed out & was taken to [facility] by ambulance. Was sent home later that day after bleeding stopped. Saw neph, Dr Nugent the following day 04/03/18 went to the [facility] & had a permacath placed in right subclavian. Had dialysis that afternoon (04/03/18) from the left arm. Had dialysis on 04/05 from new permcath & had revision of AV fistula of left arm at [facility] on 04/06/18. Started using the new AVF in left arm for dialysis last week on Tue04/19/18. Is back to regular M, W, F dialysis schedule. Has appt on 05/02/18 with GI and appt on 05/04/18 to have permacath removed.<div>
</div>< div>Has appt with Dr Katherin griffin next week for diabetes. Blood sugars have still been high in 200-300 range. Has had hypoglycemia also. Variable blood sugars.</div><div>
</div><div>Previously:</div><div><span style="font-size: 14px;">Was hospitalized in October & Nov for fluid overload. Had AV fistula created first in left wrist, but moved to left upper arm & started dialysis in November 2017. Currently goes to dialysis </span>3x<span style="font-size: 14px;">/wk on , W, & F. (Nurse is Ghada [phone]). </span>s<span style="font-size: 14px;">.</span>
</div><div><div><span style="font-size: 14px;">Was hospitalized at [facility] last month (Mar 02-2017) for hyperglycemia with blood sugar of 700.</span></div><div><span style="font-size: 14px;">Was also hospitalized in June for shingles.</span>
</div><div><span style="font-size: 14px;">Followed by Dr. Nugent, neph. at dialysis & while in hospital.</span></div><div><span style="font-size: 14px;">Followed by Dr. Garcia, cardiology</span></div><div>Has been having some intermittent fecal incontinence for past year, has been increasing in frequency recently to once or twice a week.</div><div>Also with allergies - sneezing, runny nose. Had flu vaccine & pneumonia vaccine at [facility].</div><div>
</div><div> Has been going to dialysis in [place] 3x/wk on M, W, & F for three-four hours. Shahida (daughter) brings him & or daughter (Dorene) picks him up.</div><div>
</div><div>Blood sugar still tends to run on high side, 200s in morning, 200-300 in evening.</div><div>No hypoglycemia with readings & lt;70. Lowest reading about 129.</div><div>
</div><div><div>PMHx:</div><div> ESRD - recently started on hemodialysis 3x/wk in [place] in Nov 2017
<div> Type 2 DM for past 20yrs. Currently on insulin, both Lantus 20units at night & amp; Novolog U100 7units tid ac meals. Daughter (Shahida) lives with him & his (& two grandchildren) and helps monitor blood sugar. Usual blood sugar in 100-388 range.
</div><div>
</div><div>Peripheral neuropathy - was on gabapentin 300mg bid in past. Numbness in feet. Has had toe amputation. Will defer to neurology for restarting gabapentin medication.
</div><div>CHF - Seen by cardiology, Dr. Garcia in [facility] in Nov 2017.
</div><div> CAD- has had '7 stents', per pt's daughter. Had cardiac cath on 04/29/17 - found 80% blockage in two of the stents, per pt. Had procedure "roto-rooter".
< /div><div>PVD - stents in legs
</div><div>CVA - 2013 - imbalance, left sided weakness
</div><div>Hypertension - BP 125/68 in office.
</div><div> Hyperlipidemia - currently on atorvastatin 80mg qhs
</div><div>BPH - on tamulosin 0.4mg qd.</div>
</div></div></div> Review of Systems:ROS as noted in the HPI Review of Systems Comprehensive General Adult ROS Reported By: Patient Constitutional: Constitutional: no fever Eyes: Eyes: no vision change Cardiovascular: Cardiovascular: no chest pain Respiratory: Respiratory: no cough, no wheezing, no shortness of breath Gastrointestinal: Gastrointestinal: no abdominal pain Musculoskeletal: Musculoskeletal: no swelling in the extremities, muscle weakness, arthralgias/joint pain Neurologic: Neurologic: no seizures, no headaches, weakness, numbness, dizziness Psychiatric: Psych: no depression, feeling safe in a relationship, no alcohol abuse, no hallucinations Endocrine: Endocrine: fatigue Physical Exam General Adult Exam (male) Reported By: Patient Solar Development Engineer: Solar Development Engineer: present; with today Constitutional: Level of Distress: chronically ill. Ambulation: limited ambulation Psychiatric: Insight: poor insight. Mental Status: active and alert, normal affect ENMT: Oropharynx: moist mucous membranes Neck: Neck: ; Right subclavian dialysis access (temporary) Lungs: Respiratory effort: no dyspnea. Auscultation: breath sounds normal, no wheezing, no rales/crackles Cardiovascular: Heart Auscultation: RRR, normal S1, normal S2, no murmurs. Neck vessels: no carotid bruits. Pulses including femoral / pedal: diminished; AV shunt left antecubital fossa for dialysis with palpable flow Musculoskeletal:: Extremities: no edema
--- OUTSIDE RECORDS SUMMARY | 2018-07-26 20:23 | XMS REPORT ---
Author Organization Unknown Address [address] [place] [address] Phone [phone] Care Team Providers Care Insulation Helper Name Role Phone DR. RAMONITA ALLAN 3 [phone] LIZ SAINI MD 82 [phone] JOSHUA FRANK DPM 120 [phone] [facility] 247 [phone] CLAY SHANKS 118 [phone] ZINA BURRELL MD (ENDOCRINOLOGY) 119 [phone] ANA GALAN MD 114 [phone] ELENO RIOJAS MD 129 [phone] Allergies Code Code System Name Reaction Severity Status Onset NKDA Medications Name Status Start Date Stop Date acetaminophen 300 mg-codeine 30 mg tablet Completed 03/11/2017 acyclovir 800 mg tablet Active Not available amoxicillin 875 mg-potassium clavulanate 125 mg tablet Completed 05/24/2017 aspirin 81 mg tablet,delayed release Take 1 tablet every day by oral route. Active Not available atorvastatin 80 mg tablet Active Not available azithromycin 250 mg tablet Completed 05/10/2017 benzonatate 200 mg capsule Take 1 capsule 3 times a day by oral route for 10 days. Completed 05/10/2017 carvedilol 3.125 mg tablet Active Not available cephalexin 500 mg capsule Completed 03/11/2017 ciprofloxacin 250 mg tablet Active Not available ciprofloxacin 500 mg tablet Take 1 tablet twice a day by oral route. Completed 03/11/2017 clindamycin HCl 150 mg capsule 2 capsules every 6 hrs Completed 04/12/2017 clopidogrel 75 mg tablet Active Not available doxepin 5 % topical cream Completed 03/11/2017 famotidine 20 mg tablet Active Not available furosemide 40 mg tablet Take 1 tablet twice a day by oral route as needed. Active Not available gabapentin 100 mg capsule Completed 03/11/2017 gabapentin 300 mg capsule Take 1 capsule twice a day by oral route. Completed 04/12/2017 gatifloxacin 0.5 % eye drops Completed 03/11/2017 hydralazine 50 mg tablet Active Not available hydrocodone 5 mg-acetaminophen 325 mg tablet Active Not available Infinity Meter Kit Completed 05/10/2017 isosorbide dinitrate 30 mg tablet Active Not available ketorolac 0.5 % eye drops Completed 03/11/2017 lancing device Completed 05/10/2017 Lantus Solostar U-100 Insulin 100 unit/mL (3 mL) subcutaneous pen 20 units at bedtime Completed 05/10/2017 Levemir FlexTouch U-100 Insulin 100 unit/mL (3 mL) subcutaneous pen Active Not available levofloxacin 250 mg tablet Completed 03/11/2017 lisinopril 20 mg tablet Take 1 tablet twice a day by oral route. Completed 04/12/2017 metolazone 2.5 mg tablet Take 1 tablet twice a day by oral route. Completed 04/12/2017 mupirocin 2 % topical ointment Completed 03/11/2017 Novolin R Regular U-100 Insulin 100 unit/mL injection solution Completed 04/12/2017 Novolog U-100 Insulin aspart 100 unit/mL subcutaneous solution Active Not available pentoxifylline ER 400 mg tablet,extended release Take 1 tablet 3 times a day by oral route. Completed 04/12/2017 potassium chloride ER 10 mEq tablet,extended release(part/cryst) Take 1 tablet twice a day by oral route. Completed 04/12/2017 prednisolone acetate 1 % eye drops,suspension Completed 03/11/2017 sulfamethoxazole 800 mg-trimethoprim 160 mg tablet Completed 03/11/2017 tamsulosin 0.4 mg capsule Active Not available tramadol 50 mg tablet Completed 03/11/2017 True Metrix Glucose Test Strip use 4 times a day Completed 05/10/2017 TRUEplus Lancets 28 gauge Completed 03/11/2017 Ultra Thin Lancets 31 gauge Take 1 each every day by logolineupcell. route for 90 days. Active Not available Problems Name Status Onset Date Source Type II Diabetes Mellitus Uncontrolled Active 03/19/2017 Diabetic Neuropathy Active 03/19/2017 Essential Hypertension Active 03/19/2017 Congestive Heart Failure Active 03/19/2017 Cerebrovascular Accident Unknown 03/19/2017 Peripheral Vascular Disease Active 03/19/2017 Chronic Kidney Disease Active 03/19/2017 Stented Coronary Artery Active 03/19/2017 History of Cerebrovascular Accident Active 03/21/2017 Benign Prostatic Hyperplasia Active 04/13/2017 Hypoglycemic State in Diabetes Active 05/26/2017 Hyperlipidemia Active Procedures Date Name Performed by 04/11/2005 Amputation Notes: toe Information not available 04/11/2004 Amputation Notes: toe Information not available Notes: multiple stint Lab Results Date Name Specimen Result Interpretation Description Value Range Status Address 03/11/2017 Lipid Panel, Serum High Cholesterol, Total 268 mg/dL <200 mg/dL Final [facility]: [address] [place] Normal HDL Cholesterol 50 mg/dL >40 mg/dL Final [facility]: [address] [place] High Triglycerides 238 mg/dL <150 mg/dL Final [facility]: [address] [place] High LDL-cholesterol 178 mg/dL (calc) Final [facility]: [address] [place] High Chol/hdlc Ratio 5.4 (calc) <5.0 (calc) Final [facility]: [address] [place] High Non HDL Cholesterol 218 mg/dL (calc) <130 mg/dL (calc) Final [facility]: [address] [place] 03/11/2017 CBC W/ Auto Diff Normal White Blood Cell Count 7.5 thousand/uL 3.8-10.8 thousand/uL Final [facility]: [address] [place] Normal Red Blood Cell Count 4.35 million/uL 4.20-5.80 million/uL Final [facility]: [address] [place] Low Hemoglobin 12.9 g/dL 13.2-17.1 g/dL Final [facility]: [address] [place] Normal Hematocrit 39.9 % 38.5-50.0 % Final [facility]: [address] [place] Normal Mcv 91.7 fL 80.0-100.0 fL Final [facility]: [address] [place] Normal Mch 29.7 pg 27.0-33.0 pg Final [facility]: [address] [place] Normal Mchc 32.3 g/dL 32.0-36.0 g/dL Final [facility]: [address] Normal Rdw 12.2 % 11.0-15.0 % Final [facility]: [address] [place] Normal Platelet Count 281 thousand/uL 140-400 thousand/uL Final [facility]: [address] [place] Normal Mpv 11.0 fL 7.5-12.5 fL Final [facility]: [address] [place] Normal Absolute Neutrophils 5730 cells/uL 9128-9499 cells/uL Final [facility]: [address] [place] Normal Absolute Lymphocytes 1013 cells/uL 850-3900 cells/uL Final [facility]: [address] [place] Normal Absolute Monocytes 578 cells/uL 200-950 cells/uL Final [facility]: [address] [place] Normal Absolute Eosinophils 98 cells/uL 15-500 cells/uL Final [facility]: [address] [place] Normal Absolute Basophils 83 cells/uL 0-200 cells/uL Final [facility]: [address] [place] Normal Neutrophils 76.4 % Final [facility]: [address] [place] Normal Lymphocytes 13.5 % Final [facility]: [address] [place] Normal Monocytes 7.7 % Final [facility]: [address] [place] Normal Eosinophils 1.3 % Final [facility]: [address] [place] Normal Basophils 1.1 % Final [facility]: [address] [place] 03/11/2017 CMP, Serum or Plasma High Glucose 512 mg/dL 65-99 mg/dL Final [facility]: [address] [place] High Urea Nitrogen (BUN) 53 mg/dL 7-25 mg/dL Final [facility] [address] [facility] Creatinine 2.38 mg/dL 0.70-1.25 mg/dL Final [facility] [address] Low eGFR Non-afr. Belizean 27 mL/min/1.73m2 > or=60 mL/min/1.73m2 Final [facility]: [address] [place] Low eGFR 31 mL/min/1.73m2 > or=60 mL/min/1.73m2 Final [facility]: [address] [place] Normal BUN/creatinine Ratio 22 (calc) 6-22 (calc) Final [facility]: [address] [place] Low Sodium 131 mmol/L 135-146 mmol/L Final [facility] [address] [facility] Normal Potassium 4.8 mmol/L 3.5-5.3 mmol/L Final [facility]: [address] [place] Low Chloride 95 mmol/L 98-110 mmol/L Final [facility]: [address] [facility] Normal Carbon Dioxide 26 mmol/L 20-31 mmol/L Final [facility] [address] [facility] Normal Calcium 8.9 mg/dL 8.6-10.3 mg/dL Final [facility]: [address] [facility] Normal Protein, Total 6.6 g/dL 6.1-8.1 g/dL Final [facility]: [address] [facility] Low Albumin 3.2 g/dL 3.6-5.1 g/dL Final [facility]: [address] [facility] Normal Globulin 3.4 g/dL (calc) 1.9-3.7 g/dL (calc) Final [facility]: [address] [place] Low Albumin/globulin Ratio 0.9 (calc) 1.0-2.5 (calc) Final [facility] [address] Normal Bilirubin, Total 0.5 mg/dL 0.2-1.2 mg/dL Final [facility]: [address] [place] High Alkaline Phosphatase 146 U/L 40-115 U/L Final [facility] [address] [facility] Ast 11 U/L 10-35 U/L Final [facility] [address] [facility] Normal Alt 9 U/L 9-46 U/L Final [facility] [address] 03/11/2017 TSH, Serum or Plasma Normal Tsh 1.83 mIU/L 0.40-4.50 mIU/L Final [facility]: [address] [place] [address] 03/11/2017 Erythrocyte Sedimentation Rate by Westergren Method High Sed Rate by Modified Westergren 92 mm/h < or=20 mm/h Final [facility]: [address] [place] [address] 03/11/2017 Vitamin D, 25-Hydroxy, Total, Serum Low Vitamin D,25-Oh,total,ia 14 NG/mL 30-100 NG/mL Final [facility]: [address] [place] [address] 03/11/2017 HbA1C (Hemoglobin a1C), Blood High Hemoglobin a1C >14.0 % of total HGB <5.7 % of total HGB Final [facility]: [address] [place] [address] EAG (mg/dL) Final [facility]: [address] [place] [address] EAG (mmol/L) Preliminary [facility]: [address] [place] [address] 03/11/2017 Magnesium, Serum or Plasma Normal Magnesium 2.2 mg/dL 1.5- 2.5 mg/dL Final [facility]: [address] [place] [address] 03/11/2017 Phosphorus, Serum or Plasma High Phosphate (as Phosphorus) 4.6 mg/dL 2.1-4.3 mg/dL Final [facility]: [address] [place] [address] Past Encounters 06/15/2017 Анна [facility]oa[facility] [address] [facility] [address] [place] [address], Ph. 06/01/2017 Анна Novoa: [address] [facility] [address] [address], Ph. 05/25/2017 Анна Novoa: [address] [facility] [address] [place] [address], Ph. 05/24/2017 Hypoglycemic State in Diabetes; Type II Diabetes Mellitus Uncontrolled; Congestive Heart Failure; Stented Coronary Artery; Chronic Kidney Disease Ramonita Allan MD: [address] [place] [phone], Ph. 05/18/2017 Chronic Kidney Disease Joseph Miller MD: [address] [place] [address], Ph. 05/11/2017 Анна Novoa: [address] [facility], [address], [place] [address], Ph. 05/10/2017 Congestive Heart Failure; Stented Coronary Artery; Type II Diabetes Mellitus Uncontrolled; Chronic Kidney Disease; Body Mass Index 25-29 - Overweight; Dyspnea at Rest Ramonita Allan MD: [address] [place] [phone], Ph. 05/02/2017 Анна Novoa: [address] [facility], [facility] [address], [place] [address], Ph. 04/21/2017 [facility]: [address] [facility], [address], [place] [address], Ph. 04/12/2017 Chronic Kidney Disease; Type 2 Diabetes Mellitus; Congestive Heart Failure; Acid Reflux; Hyperlipidemia; Hypertensive Disorder; Cough; Peripheral Vascular Disease; Cerebrovascular Accident Ramonita Allan MD: [address] [place] [phone], Ph. 04/06/2017 [facility]: [address] [facility], [facility] [address] [place] [address], Ph. 03/22/2017 Altered Mental Status; Hypotensive Episode; Congestive Heart Failure; Type II Diabetes Mellitus Uncontrolled; Chronic Kidney Disease; History of Cerebrovascular Accident; Peripheral Vascular Disease Ramonita Allan MD: [address] [place] [phone], Ph. 03/11/2017 Congestive Heart Failure; Cerebrovascular Accident; Type II Diabetes Mellitus Uncontrolled; Mixed Hyperlipidemia Due to Type 2 Diabetes Mellitus; Chronic Kidney Disease Stage 3; Diabetic Peripheral Neuropathy; At Risk for Falls; Depression Screening; Body Mass Index 25-29 - Overweight Ramonita Allan MD: [address] [place] [address], Ph. 03/08/2017 Анна Novoa: [address], [address], [place] [address], Ph. Social History Smoking Status Former Smoker Notes: quit in 1996 Vaccine List Vaccine Type influenza, unspecified formulation 02/09/2017 pneumococcal conjugate PCV 13 02/09/2017 Tdap 04/11/2015 Plan of Care Patient Instructions Please follow up with your doctor in . Follow up with any specialists that we discussed during your visit today. If you need help getting your medications filled, our [facility] can sync medication refills, deliver within a 10 mile radius, or [facility] overnight at no additional cost. Please watch for warning symptoms that may occur: *fever *redness/oozing at surgical site *shortness of breath *uncontrolled pain *unexpected weight gain/loss *high or low blood pressure *chest pain *confusion *any other health concerns Call us at if you experience these symptoms. Evening and Saturday clinic hours are available if you have problems. If you have problems after hours, you can reach the [facility] physician energy conservation specialist at . Reminders Provider Appointments None recorded. Lab None recorded. Referral None recorded. Procedures None recorded. Surgeries None recorded. Imaging None recorded. Vitals 05/24/2017 10:30AM Est Patient Height Weight BMI Blood Pressure 5 ft 9 in 202 lbs 29.8 kg/m2 136/66 mm[Hg] 05/10/2017 01:30PM TCM Height Weight BMI Blood Pressure 5 ft 9 in 198 lbs 29.2 kg/m2 110/50 mm[Hg] 04/12/2017 10:45AM TCM - High Risk Height Weight BMI Blood Pressure 5 ft 9 in 196 lbs 28.9 kg/m2 (1) 154/81 mm[Hg] (2) 154/79 mm[Hg] 03/22/2017 02:30PM Est Patient Height Weight Blood Pressure 5 ft 9 in 172/94 mm[Hg] 03/11/2017 11:30AM TCM - High Risk Height Weight BMI Blood Pressure 5 ft 9 in 185 lbs 27.3 kg/m2 136/70 mm[Hg]
--- OUTSIDE RECORDS SUMMARY | 2018-07-26 20:23 | XMS REPORT | Encounter Summary ---
Author Organization Unknown Address [address] [place] [address] Phone [phone] Care Team Providers Care Litigation Support Analyst Name Role Phone Dr. Ramonita Allan 3 [phone] Joe Garcia MD 82 [phone] Rick Jolly MD 114 [phone] Osvaldo Nugent 118 [phone] Jw Berrios MD (Endocrinology) 119 [phone] Archie Ward DPM 120 [phone] Travis Archuleta MD 129 [phone] [facility] 247 [phone] Reason for Visit chronic conditions Instructions 1. History of smoking 2. Screening for malignant neoplasm of colon 3. Immunization refused 4. Body mass index 25-29 - overweight learning about healthy weight 5. Skin lesion mupirocin 2 % topical ointment 6. Tinea cruris nystatin 100,000 unit/gram topical powder 7. Type II diabetes mellitus uncontrolled type 2 diabetes: care instructions endocrinology referral 8. End stage renal failure on dialysis 9. Senile purpura 10. Angina pectoris 11. Chronic obstructive lung disease 12. Amputated big toe 13. Productive cough azithromycin 250 mg tablet albuterol sulfate 2.5 mg/3 mL (0.083 %) solution for nebulization Discussion Note: None recorded. Plan of Care Reminders Provider Appointments None recorded. Lab None recorded. Referral Endocrinology Referral 05/23/2018 Jw Berrios MD (Endocrinology) Procedures None recorded. Surgeries None recorded. Imaging None recorded. Medications Name Start Date albuterol sulfate 2.5 mg/3 mL (0.083 %) solution for nebulization Inhale 3 mL 3 times a day by nebulization route as needed. atorvastatin 80 mg tablet Take 1 tablet every day by oral route at bedtime. azithromycin 250 mg tablet TAKE 2 TABLETS (500 MG) BY ORAL ROUTE ONCE DAILY FOR 1 DAY THEN 1 TABLET (250 MG) BY ORAL ROUTE ONCE DAILY FOR 4 DAYS carvedilol 3.125 mg tablet Take 1 tablet every day by oral route at bedtime. clonidine as needed clopidogrel 75 mg tablet Take 1 tablet every day by oral route. fluconazole 150 mg tablet Take 1 tablet every day by oral route for 7 days. furosemide 40 mg tablet Take 1 tablet twice a day by oral route as needed. hydralazine 50 mg tablet Take 1 tablet every 8 hours by oral route. isosorbide dinitrate 30 mg tablet Take 1 tablet every day by oral route. Lantus Solostar U-100 Insulin 100 unit/mL (3 mL) subcutaneous pen Inject 24 units every day by subcutaneous route in the morning. Levemir FlexTouch U-100 Insulin 100 unit/mL (3 mL) subcutaneous pen loratadine 10 mg tablet TAKE 1 TABLET BY MOUTH EVERY DAY NEEDED lorazepam 2 mg tablet Take 1 tablet every day by oral route as needed. medroxyprogesterone 5 mg tablet TAKE 1 TABLET BY MOUTH EVERY DAY mupirocin 2 % topical ointment APPLY A SMALL AMOUNT TO THE AFFECTED AREA BY TOPICAL ROUTE 3 TIMES PER DAY Novolog U-100 Insulin aspart 100 unit/mL subcutaneous solution Inject 7 units 3 times a day by subcutaneous route as needed for 30 days. nystatin 100,000 unit/gram topical cream Apply 1 application twice a day by topical route for 15 days. nystatin 100,000 unit/gram topical powder APPLY TO THE AFFECTED AREA(S) BY TOPICAL ROUTE 2 TIMES PER DAY OneTouch Delica Lancets 33 gauge OneTouch Verio Mid Control solution OneTouch Verio strips sevelamer carbonate 800 mg tablet Take 1 tablet 3 times a day by oral route for 90 days. Suprep Bowel Prep Kit 17.5 gram-3.13 gram-1.6 gram oral solution tamsulosin 0.4 mg capsule TAKE 1 CAPSULE(S) EVERY DAY BY ORAL ROUTE. Ultra Thin Lancets 31 gauge Take 1 each every day by miscell. route for 90 days. Vitamin D2 50,000 unit capsule Take 1 capsule every week by oral route. Medications Administered None recorded. Vitals Height Weight BMI Blood Pressure 5 ft 9 in 192 lbs 28.4 kg/m2 138/66 mm[Hg] Lab Results None recorded. Allergies Code Code System Name Reaction Severity [...] Status Former Smoker (1 PPW) Past Encounters 05/23/2018 History of Smoking; Screening for Malignant Neoplasm of Colon; Immunization Refused; Body Mass Index 25-29 - Overweight; Skin Lesion; Tinea Cruris; Type II Diabetes Mellitus Uncontrolled; End Stage Renal Failure on Dialysis; Senile Purpura; Angina Pectoris; Chronic Obstructive Lung Disease; Amputated Big Toe; Productive Cough Ramonita Allan MD: [address] [place] [phone], Ph. 04/25/2018 Adult Health Examination; Type II Diabetes [...] Neuropathy; Essential Hypertension Ramonita Allan MD: [address] [place] [address], Ph. History of Present Illness Mini Cog [...] to repeat them. Patient recalled no words Note:68yo male presents for follow-up visit. Here today with daughter, Shahida. Since last visit, pt saw crusher loader operator, Dr Garcia and had echo, per daughter. LVEF has decreased from 35-30% per daughter. No change in medication, but Dr Garcia thinking about pacemaker.<div><span style="font-size: 14px;">
</span> </div><div><span style="font-size: 14px;">Pt's daughter & concerned about bowel prep prior to planned colonoscopy on 06/08/18 with </span>Juarez< span style="font-size: 14px;">. Is on dialysis </span>3x<span style="font-size: 14px;">/wk & still with swelling in right ankle. Is worried about fluid shift & dehydration. Dr Nugent is neph.</span></div><div>
<div>Pt went to [facility] last 05/18/18 for jock itch. Was given Nystatin powder, cream and 7days of Diflucan orally. Has not finished Diflucan pill yet. Needs refill of Bactroban for skin lesions on leg & upper right chest wall where temporary dialysis line was removed.</div></div>

67yo male presents with his for AWV. Last visit 03/28/18. Pt was at dialysis on Tuesday04/02/18 and dialysis needle moved & started bleeding under skin of left arm at site of AV fistula. Pt passed out & was taken to [facility] by ambulance. Was sent home later that day after bleeding stopped. Saw neph, Dr Nugent the following day 04/03/18 went to the [facility] & had a permacath placed in right subclavian. Had dialysis that afternoon (04/03/18) from the left arm. Had dialysis on 04/05 from new permcath & had revision of AV fistula of left arm at [facility] on 04/06/18. Started using the new AVF in left arm for dialysis last week on 04/19/18. Is back to regular M, W, F dialysis schedule. Has appt on 05/02/18 with GI and appt on 05/04/18 to have permacath removed.<div>
</div><div>Has appt with Dr Katherin griffin next week for diabetes. Blood sugars have still been high in 200-300 range. Has had hypoglycemia also. Variable blood sugars.</div><div>
</div><div> Previously:</div><div><span style="font-size: 14px;">Was hospitalized in October & amp; Nov for fluid overload. Had AV fistula created first in left wrist, but mov ed to left upper arm & started dialysis in November 2017. Currently goes to dialysis </span>3x<span style="font-size: 14px;">/wk on M, W, & F. (Nurse is Ghada [phone]). </span>s<span style="font-size: 14px;">.</span>
</div ><div><div><span style="font-size: 14px;">Was hospitalized at [facility] last month (Mar 02-2017) for hyperglycemia with blood sugar of 700.</span>< /div><div><span style="font-size: 14px;">Was also hospitalized in June for shingles.</span>
</div><div><span style="font-size: 14px;">Followed by Dr. Nugent, neph. at dialysis & while in hospital.</span></div><div><span style="font-size: 14px;">Followed by Dr. Garcia, cardiology</span></div><div> Has been having some intermittent fecal incontinence for past year, has been inc reasing in frequency recently to once or twice a week.</div><div>Also with allergies - sneezing, runny nose. Had flu vaccine & pneumonia vaccine at [facility].</div><div>
</div><div>Has been going to dialysis in [place] 3x/wk on M, W, & F for three-four hours. Shahida (daughter) brings him & or daughter (Dorene) picks him up.</div><div>
</div><div>Blood sugar still tends to run on high side, 200s in morning, 200-300 in evening.</div ><div>No hypoglycemia with readings <70. Lowest reading about 129.</div><div>
</div><div><div>PMHx:</div><div>ESRD - recently started on hemodialysis 3x/wk in [place] in Nov 2017
<div>Type 2 DM for past 20yrs. Currently on insulin, both Lantus 20units at night & Novolog U100 7units tid ac meals. Daughter (Shahida) lives with him & his (& two grandchildren) and helps monitor blood sugar. Usual blood sugar in 100-388 range.
</div><div>
</div><div>Peripheral neuropathy - was on gabapentin 300mg bid in past. Numbness in feet. Has had toe amputation. Will defer to neurology for restarting gabapentin medication.
</div><div>CHF - Seen by cardiology, Dr. Garcia in [facility] in Nov 2017.
</div><div>CAD- has had '7 stents', per pt's daughter. Had cardiac cath on 04/29/17 - found 80% blockage in two of the stents, per pt. Had procedure "roto-rooter".
</div><div>PVD - stents in legs
< /div><div>CVA - 2013 - imbalance, left sided weakness
</div><div>Hypertension - BP 125/68 in office.
</div><div>Hyperlipidemia - currently on atorvastatin 80mg qhs
</div><div>BPH [...] General Adult Exam (male) Reported By: Patient Respiratory Therapy Manager: Respiratory Therapy Manager: present; with today Constitutional: Level of Distress: [...]
--- OUTSIDE RECORDS SUMMARY | 2018-07-26 20:23 | XMS REPORT | Encounter Summary ---
Author Organization Unknown Address [address] [place] [address] Phone [phone] Care Team Providers Care Vocational Technical Education Teacher Name Role Phone Dr. Ramonita Allan 3 [phone] Joe Garcia MD 82 [phone] Rick Jolly MD 114 [phone] Osvaldo Nugent 118 [phone] Jw Berrios MD (Endocrinology) 119 [phone] Archie Ward DPM 120 [phone] Travis Archuleta MD 129 [phone] [facility] 247 [phone] Reason for Visit chronic conditions Instructions 1. Type II diabetes mellitus uncontrolled type 2 diabetes: care instructions endocrinology referral 2. End stage renal failure on dialysis 3. Screening for malignant neoplasm of colon 4. Productive cough azithromycin 250 mg tablet albuterol sulfate 2.5 mg/3 mL (0.083 %) solution for nebulization 5. Immunization refused 6. Body mass index 25-29 - overweight learning about healthy weight 7. Skin lesion mupirocin 2 % topical ointment 8. Tinea cruris nystatin 100,000 unit/gram topical powder 9. Senile purpura 10. Angina pectoris 11. Chronic obstructive lung disease 12. Amputated big toe Discussion Note: None recorded. Plan of Care Reminders Provider Appointments None recorded. Lab None recorded. Referral Endocrinology Referral 05/23/2018 Jw Berrios MD (Endocrinology) Procedures None recorded. Surgeries None recorded. Imaging None recorded. Medications Name Start Date albuterol sulfate 2.5 mg/3 mL (0.083 %) solution for nebulization Inhale 3 mL 3 times a day by nebulization route as needed. atorvastatin 80 mg tablet TAKE 1 TABLET BY MOUTH EVERYDAY AT BEDTIME carvedilol 3.125 mg tablet TAKE 1 TABLET BY MOUTH EVERYDAY AT BEDTIME clonidine as needed clopidogrel 75 mg tablet TAKE 1 TABLET BY MOUTH EVERY DAY fluconazole 150 mg tablet Take 1 tablet every day by oral route for 7 days. furosemide 40 mg tablet Take 1 tablet twice a day by oral route as needed. hydralazine 50 mg tablet TAKE 1 TABLET BY MOUTH EVERY 8 HOURS isosorbide dinitrate 30 mg tablet TAKE 1 TABLET BY MOUTH EVERY DAY Lantus Solostar U-100 Insulin 100 unit/mL (3 [...] Former Smoker (1 PPW) Past Encounters 05/23/2018 Type II Diabetes Mellitus Uncontrolled; End Stage Renal Failure on Dialysis; Screening for Malignant Neoplasm of Colon; Productive Cough; Immunization Refused; Body Mass Index 25-29 - Overweight; Skin Lesion; Tinea Cruris; Senile Purpura; Angina Pectoris; Chronic Obstructive Lung Disease; Amputated Big Toe Ramonita Allan MD: [address] [place] [phone], Ph. 04/25/2018 Adult Health Examination; Type II [...] Neuropathy; Essential Hypertension Ramonita Allan MD: [address] [place] [address], Ph. History of Present Illness Note:68yo male presents for follow-up visit. Here today with daughter, Shahida. Since last visit, pt saw bias cutting machine operator, Dr Garcia and had echo, per [...] fluid shift & dehydration. Dr Nugent is neph. Has been having some intermittent fecal incontinence for past year, has been increasing in frequency recently to once or twice a week.</span></div><div>
<div>Pt went to [facility] last 05/18/18 for jock itch. Was given Nystatin powder, cream and 7days of Diflucan orally. Has not finished Diflucan pill yet. Needs refill of Bactroban for skin lesions on leg & upper right chest wall where temporary dialysis line was removed.</div></div><div>
</div><div>Did not go to appt with endo, Dr Katherin Abdalla for diabetes, not accepting new patients. Blood sugars have still been high in 200-300 range. Has had hypoglycemia also. Variable blood sugars. Was hospitalized at [facility] Mar 02-2017, for hyperglycemia with blood sugar of 700.</div><div>
</div><div>Has had wet cough productive of phlegm for past 3-4 days. No fever measured.</div><div>
< /div><div><div><div>PMHx:</div><div>ESRD - recently started on hemodialysis 3x/wk in [place] in Nov 2017. Currently goes to dialysis 3x/wk on M, W, & F. (Nurse is Ghada [phone]). </div><div>
<div>Type 2 DM for past 20yrs. Currently [...] - Seen by cardiology, Dr. Garcia in [facility] in Nov 2017.
</div><div>CAD- has had '7 stents', per pt's daughter. Had cardiac cath on 04/29/17 - found 80% blockage in two of the stents, per pt. Had procedure "roto-rooter".
</div>< div>PVD - stents in legs
</div><div>CVA - 2013 - imbalance, left sided weakness
</div><div>Hypertension
</div><div>Hyperlipidemia - currently on atorvastatin 80mg qhs
</div><div>BPH - on tamulosin 0.4mg qd.</div>Allergies - sneezing, runny nose. Had flu vaccine & pneumonia vaccine at [facility].
</div></div></div> Review of Systems:ROS as noted in [...] General Adult Exam (male) Reported By: Patient Antenna Design Engineer: Antenna Design Engineer: present; with today Constitutional: Level of [...] with palpable flow Musculoskeletal:: Extremities: no edema Skin: Inspection and palpation: lesion; mild erythema at site of temporary catheter on chest
== END 2018-07-26 20:29 | disposition left against medical advice (07) ==
LOC: ER 20:17
DX: M25.521 Pain in right elbow (principal); M79.631 Pain in right forearm

== ENCOUNTER → 2018-10-19 | Day surgery (SDC) | payer MEDICARE ==
[2018-10-17 11:47] LABS: INR 1.08; PROTHROMBIN TIME 14.5 seconds (11.9-14.5)
[2018-10-17 11:48] LABS: PARTIAL THROMBOPLASTIN TIME 41.5 seconds (23.8-35.5)
[2018-10-17 11:54] LABS: BASOPHILS # (AUTO) 0.1 (0.0-0.1); BASOPHILS % 0.8 % (0.0-1.0); EOSINOPHILS # (AUTO) 0.1 (0.0-0.4); EOSINOPHILS % 2.2 % (0.0-6.0); HEMATOCRIT 34.8 % (38.2-49.6); HEMOGLOBIN 11.3 g/dL (14.0-18.0); LYMPHOCYTES # (AUTO) 0.7 (1.0-3.2); LYMPHOCYTES % 10.5 % (18.0-39.1); MEAN CORPUSCULAR HEMOGLOBIN 32.3 pg (28-32); MEAN CORPUSCULAR HGB CONC 32.5 g/dL (31-35); MEAN CORPUSCULAR VOLUME 99.4 fL (81-99); MONOCYTES # (AUTO) 0.9 (0.2-0.8); NEUTROPHILS # (AUTO) 4.6 (2.1-6.9); PLATELET COUNT 129 x10e3/uL (140-360); RED CELL DISTRIBUTION WIDTH 16.5 % (11.7-14.4)
[2018-10-17 11:56] LABS: ALBUMIN 3.4 g/dL (3.5-5.0); ALBUMIN/GLOBULIN RATIO 0.8 (0.8-2.0); ANION GAP 17.1 mmol/L (8-16); CALCIUM 8.9 mg/dL (8.4-10.2); CREATININE, SERUM 4.64 mg/dL (0.72-1.25); POTASSIUM 4.1 mmol/L (3.5-5.1)
--- NOTE | 2018-10-17 12:27 | Diagnostic Imaging Report ---
PROCEDURE: X-RAY CHEST, TWO VIEWS COMPARISON: 02/04/2016. INDICATIONS: PRE-OP, DENIES CHEST COMPLAINTS FINDINGS: Right subclavian approach implantable cardiac device body projects over the lateral midlung. Leads project over the right atrium and right ventricle. Lung volumes are low with perihilar vascular crowding. No gross consolidation, pleural effusion, or pneumothorax. Enlargement of the cardiac silhouette with tortuous thoracic aorta and prominence of the right peritracheal region of the mediastinum, likely reflective of great vessel tortuosity. Coronary artery stent. No acute osseous abnormality. Healed fracture deformities of the right seventh and eighth ribs. CONCLUSION: Low lung volumes without acute cardiopulmonary abnormality. Enlargement of the cardiac silhouette without vascular decompensation. Dictated by: Bentley Aguiar M.D. on 10/17/2018 at 12:31 Electronically approved by: Bentley Aguiar M.D. on 10/17/2018 at 12:31
[2018-10-19] VITALS (23 sets, daily range): BP systolic 126–166; BP diastolic 65–98
[~2018-10-19] VITALS: Ht 175.3 cm; Wt 96.2 kg
[~2018-10-19] MED LIST changes: +ALBUTEROL1.25 MG/3 INH; +ATROPINE SULFATE 0.1 MG/ML 10ML SYR ONE; +CLONIDINE HCL0.1 MG PO; +FENTANYL CITRATE/PF 100MCG/2 ML INJ ONE; +HEPARIN SOD (PORCINE) 1000 UNIT/ML 30ML ONE; +HEPARIN SOD/SOD CHLORIDE 2,000 ML ONE; +HYDROXYZINE HCL25 MG PO; +IOPAMIDOL 300MG/ML 100 ML INFUS..BTL IV ONE; +LANTUS 3ML100 UNITS/ SC; +LIDOCAINE HCL 2% LOCAL 20 ML VIAL ONE; +LORAZEPAM0.5 MG PO; +MIDAZOLAM HCL 2 MG/2 ML VIAL ONE; +NITROGLYCERIN/D5W 200 MCG/ML 250 ML ONE; +NOVOLOG100 UNITS1 SC; +RENVELA800 MG PO; +SODIUM CHLORIDE 0.9% 1000ML 1,000 ML ONE; +XARELTO10 MG PO
--- OUTSIDE RECORDS SUMMARY | 2018-10-19 06:22 | XMS REPORT | Continuity of Care Document ---
Author Author [employer] Organization [employer] Address Unknown Phone Unavailable Care Team Providers Care Biology Instructor Name Role Phone [employer] Information [employer] Unavailable Unavailable Problems Problem Status Onset Date Classification Date Reported Comments Source Open wound of lower leg 10/11/2018 Diagnosis 10/11/2018 [facility] Coronary arteriosclerosis 10/11/2018 Diagnosis 10/11/2018 [facility] Peripheral vascular disease 10/11/2018 Diagnosis 10/11/2018 [facility] Hospital patient 10/11/2018 Diagnosis 10/11/2018 [facility] Amputated big toe 10/10/2018 Diagnosis 10/11/2018 [facility] Onychomycosis of toenails 10/10/2018 Diagnosis 10/11/2018 [facility] Pruritus of skin 10/10/2018 Diagnosis 10/11/2018 [facility] Amputated Big Toe 10/10/2018 Problem 10/11/2018 [facility] Deep venous thrombosis of upper extremity 09/13/2018 Diagnosis 10/11/2018 [facility] Abnormal Gait Due to Muscle Weakness 09/13/2018 Problem 10/11/2018 [facility] Abnormal gait due to muscle weakness 09/12/2018 Diagnosis 10/11/2018 [facility] Congestive heart failure 09/12/2018 Diagnosis 10/11/2018 [facility] End stage renal failure on dialysis 09/12/2018 Diagnosis 10/11/2018 [facility] Body mass index 25-29 - overweight 09/12/2018 Diagnosis 10/11/2018 [facility] Productive cough 09/12/2018 Diagnosis 10/11/2018 [facility] Type II diabetes mellitus uncontrolled 09/12/2018 Diagnosis 10/11/2018 [facility] Carpal Tunnel Syndrome 08/27/2018 Problem 10/11/2018 [facility] Diabetic neuropathy 08/09/2018 Diagnosis 08/09/2018 [facility] Stented coronary artery 08/09/2018 Diagnosis 08/09/2018 [facility] Deep Venous Thrombosis of Upper Extremity 08/09/2018 Problem 10/11/2018 [facility] Screening for malignant neoplasm of colon 08/08/2018 Diagnosis 08/09/2018 [facility] Immunization 08/08/2018 Diagnosis 08/09/2018 [facility] Screening for osteoporosis 08/08/2018 Diagnosis 08/09/2018 [facility] Essential hypertension 07/11/2018 Diagnosis 08/09/2018 [facility] History of cerebrovascular accident 07/11/2018 Diagnosis 08/09/2018 [facility] Chronic obstructive lung disease 05/23/2018 Diagnosis 06/09/2018 [facility] Angina pectoris 05/23/2018 Diagnosis 06/09/2018 [facility] Senile purpura 05/23/2018 Diagnosis 06/09/2018 [facility] Tinea cruris 05/23/2018 Diagnosis 06/09/2018 [facility] Skin lesion 05/23/2018 Diagnosis 06/09/2018 [facility] Immunization refused 05/23/2018 Diagnosis 06/09/2018 [facility] History of smoking 05/23/2018 Diagnosis 05/23/2018 [facility] Adult health examination 04/25/2018 Diagnosis 06/09/2018 [facility] Benign prostatic hyperplasia 04/25/2018 Diagnosis 06/09/2018 [facility] Incontinence of feces 04/25/2018 Diagnosis 06/09/2018 [facility] Seasonal allergic rhinitis 04/25/2018 Diagnosis 06/09/2018 [facility] Advance directive discussed with patient 04/25/2018 Diagnosis 06/09/2018 [facility] Depression screening 04/25/2018 Diagnosis 06/09/2018 [facility] End Stage Renal Failure on Dialysis 12/13/2017 Problem 10/11/2018 [facility] Acute kidney failure, unspecified 06/17/2017 09/14/2017 [facility] FALL Active 06/07/2017 [facility] CHAI, GENERALIZED WEAKNESS Active 06/07/2017 [facility] Hypoglycemic state in diabetes 05/26/2017 Diagnosis 07/09/2017 [facility] Hypoglycemic State in Diabetes 05/26/2017 Problem 10/11/2018 [facility] Dyspnea at rest 05/10/2017 Diagnosis 07/09/2017 [facility] Benign Prostatic Hyperplasia 04/13/2017 Problem 10/11/2018 [facility] Cough 04/12/2017 Diagnosis 07/09/2017 [facility] Hypertensive disorder 04/12/2017 Diagnosis 07/09/2017 [facility] Acid reflux 04/12/2017 Diagnosis 07/09/2017 [facility] Type 2 diabetes mellitus 04/12/2017 Diagnosis 07/09/2017 [facility] Chronic kidney disease 03/24/2017 Diagnosis 07/09/2017 [facility] Hypotensive episode 03/24/2017 Diagnosis 07/09/2017 [facility] Altered mental status 03/24/2017 Diagnosis 07/09/2017 [facility] History of Cerebrovascular Accident 03/21/2017 Problem 10/11/2018 [facility] Type II Diabetes Mellitus Uncontrolled 03/19/2017 Problem 10/11/2018 [facility] Diabetic Neuropathy 03/19/2017 Problem 10/11/2018 [facility] Essential Hypertension 03/19/2017 Problem 10/11/2018 [facility] Congestive Heart Failure 03/19/2017 Problem 10/11/2018 [facility] Peripheral Vascular Disease 03/19/2017 Problem 10/11/2018 [facility] Chronic Kidney Disease 03/19/2017 Problem 10/11/2018 [facility] Stented Coronary Artery 03/19/2017 Problem 10/11/2018 [facility] Cerebrovascular Accident 03/19/2017 Problem 07/09/2017 [facility] Diabetic peripheral neuropathy 03/11/2017 Diagnosis 07/09/2017 [facility] Chronic kidney disease stage 3 03/11/2017 Diagnosis 07/09/2017 [facility] Cerebrovascular accident 03/11/2017 Diagnosis 07/09/2017 [facility] Mixed hyperlipidemia due to type 2 diabetes mellitus 03/11/2017 Diagnosis 07/09/2017 [facility] At risk for falls 03/11/2017 Diagnosis 07/09/2017 [facility] STROKE-LIKE SYMPTOMS Active 02/08/2017 [facility] SLURRED SPEECH/ GAIT ABNORMALITY Active 02/08/2017 [facility] Hematuria Active 04/01/2015 Problem 07/27/2018 [facility] Renal insufficiency Active 04/01/2015 Problem 07/27/2018 [facility] UTI Active 04/01/2015 Problem 07/27/2018 [facility] 569.89 Active 10/29/2014 [facility] Type 2 diabetes mellitus with hypoglycemia without coma 09/14/2017 [facility] Dehydration 09/14/2017 [facility] Hypertensive chronic kidney disease with stage 1 through stage 4 chronic kidney disease, or unspecified chronic kidney disease 09/14/2017 [facility] Chronic kidney disease, unspecified 09/14/2017 [facility] Type 2 diabetes mellitus with diabetic chronic kidney disease 09/14/2017 [facility] Fall from bed, initial encounter 09/14/2017 [facility] Zoster without complications 09/14/2017 [facility] Hyperlipidemia, unspecified 09/14/2017 [facility] Atherosclerotic heart disease of burns paiute coronary artery without angina pectoris 09/14/2017 [facility] Personal history of transient ischemic attack , and cerebral infarction without residual deficits 09/14/2017 [facility] Personal history of nicotine dependence 09/14/2017 [facility] manager intermediate use of aspirin 09/14/2017 [facility] senior living use of insulin 09/14/2017 [facility] CHF exacerbation Active Problem 07/27/2018 [facility] CKD Active Problem 07/27/2018 [facility] Chest pain Active Problem 07/27/2018 [facility] Febrile illness Active Problem 07/27/2018 [facility] Hyperkalemia Active Problem 07/27/2018 [facility] Hyperlipidemia Problem 10/11/2018 [facility] ACUTE KIDNEY FAILURE, UNSPECIFIED Active [facility] WEAKNESS Active [facility] Medications Medication Details Route Status Patient Instructions Ordering Provider Order Date Source Morphine 2 mg, 1 mL, Route: IVP, Drug form: INJ, Q4H, Dosing Weight 95.597, kg, PRN Pain Score 7-10, Start date: 06/08/17 10:32:00 ALL PURPOSE CLERK, Duration: 30 day, Stop date: 07/08/17 10:31:00 CDTNotes: (Same as:MORPhine Sulfate) Inactive 06/08/2017 [facility] Hydralazine 10 mg, 0.5 mL, Route: IVP, Drug form: INJ, Q4H, Dosing Weight 95.597, kg, PRN Elevated BP, Start date: 06/08/17 10:09:00 ALL PURPOSE CLERK, Duration: 30 day, Stop date: 07/08/17 10:08:00 CDTNotes: (Same as: Joseph line) Push over 5 minutes Inactive 06/08/2017 [facility] Saline Flush 0.9% 10 ml, Route: IVP, Drug Form: INJ, Dosing Weight 95.597, kg, Q12H, Start date: 06/07/17 21:00:00 ALL PURPOSE CLERK, Duration: 30 day, Stop date: 07/07/17 9:00:00 CDTNotes: (Same as: BD Posiflush) No Longer Active 06/08/2017 [facility] atorvastatin 80 mg, 2 tab, Route: PO, Drug form: TAB, Bedtime, Dosing Weight 95.597, kg, Start date: 06/07/17 21:00:00 ALL PURPOSE CLERK, Duration: 30 day, Stop date: 07/06/17 21:00:00 CDTNotes: (Same as: Lipitor) No Longer Active 06/08/2017 [facility] Acyclovir 750 mg, Route: IV, Drug form: PDR/INJ, [id number], Dosing Weight 95.597, kg, Start date: 06/07/17 21:00:00 ALL PURPOSE CLERK, Duration: 7 day, Stop date: 06/13/17 21:00:00 CSTNotes: (Same as: Zovirax) For adult patients only: Round to nearest 50 mg per Medical Staff approval MEDICATION WASTE Product Size: 500 mg Product Wasted: 250 mg No Longer Active 06/08/2017 [facility] Morphine 4 mg, 1 mL, Route: IVP, Drug form: SOLN, Q4H, Dosing Weight 95.597, kg, PRN Pain Score 7-10, Start date: 06/07/17 20:16:00 ALL PURPOSE CLERK, Duration: 30 day, Stop date: 07/07/17 20:15:00 CDTNotes: (Same as:MORPhine Sulfate) No Longer Active 06/08/2017 [facility] heparin 5,000 unit, 1 mL, Route: SUB-Q, Drug form: INJ, Q8H-06, Dosing Weight 95.597, kg, (For patients weighing Notes: porcine heparin No Longer Active 06/07/2017 [facility] valacyclovir 1,000 mg, 2 tab, Route: PO, Drug form: TAB, [id number], Dosing Weight 95.597, kg, Priority: NOW, Start date: 06/07/17 10:47:00 ALL PURPOSE CLERK, Duration: 7 day, Stop date: 06/13/17 10:47:00 CSTNotes: (Same As: Valtrex) Inactive 06/07/2017 [facility] Aspirin 300 MG Rectal Suppository 300 mg, 1 supp, Route: NV, Drug form: SUPP, ONCE, Dosing Weight 95.597, kg, Priority: NOW, Start date: 06/07/17 10:40:00 ALL PURPOSE CLERK, Stop date: 06/07/17 10:40:00 CSTNotes: Refrigerate. Inactive 06/07/2017 [facility] Aspirin 81 MG Enteric Coated Tablet 81 mg, 1 tab, Route: PO, Drug form: ECTAB, Q24H, Dosing Weight 95.597, kg, Start date: 06/07/17 10:00:00 ALL PURPOSE CLERK, Duration: 30 day, Stop date: 07/06/17 10:00:00 CDTNotes: Do not crush or chew. (Same As: Ecotrin) No Longer Active 06/07/2017 [facility] Glucagon 1 mg, Route: IM, Drug form: PDR/INJ, PRN, Dosing Weight 95.597, kg, PRN Blood Glucose Results, Start date: 06/07/17 9:48:00 ALL PURPOSE CLERK, Duration: 30 day, Stop date: 07/07/17 10:47:00 CDT No Longer Active 06/07/2017 [facility] Dextrose 50% Syringe 25 gm, 50 mL, Route: IVP, Drug Form: INJ, Dosing Weight 95.597, kg, PRN, PRN Blood Glucose Results, Start date: 06/07/17 9:48:00 ALL PURPOSE CLERK, Duration: 30 day, Stop date: 07/07/17 10:47:00 CDT No Longer Active 06/07/2017 [facility] Insulin Lispro 4 unit, 0.04 mL, Route: SUB-Q, Drug form: SOLN, Sliding Scale, Dosing Weight 95.597, kg, PRN Blood Glucose Results, Start date: 06/07/17 9:48:00 ALL PURPOSE CLERK, Duration: 30 day, Stop date: 07/07/17 10:47:00 CDTNo naldo: (Same as: Humalog ) Roll in palms of hands gently; Do not shake `vigorously. "Single Patient Use Only " WASTE: F/P - Black; E - [email or web address] Trash Bin Stable for 28 days at room temperature. Expires in days from Date No Longer Active 06/07/2017 [facility] Saline Flush 0.9% 10 ml, Route: IVP, Drug Form: INJ, Dosing Weight 95.597, kg, PRN, PRN Line Flush, Start date: 06/07/17 9:47:00 ALL PURPOSE CLERK, Duration: 30 day, Stop date: 07/07/17 10:46:00 CDTNotes: (Same as: BD Posiflush) No Longer Active 06/07/2017 [facility] Saline Flush 0.9% 10 ml, Route: IVP, Drug Form: INJ, Dosing Weight 87.5, kg, PRN, PRN Line Flush, Start date: 06/07/17 7:07:00 ALL PURPOSE CLERK, Duration: 30 day, Stop date: 07/07/17 8:06:00 CDTNotes: (Same as: BD Posiflush) No Longer Active 06/07/2017 [facility] Sodium Chloride 0.9% IV 1,000 mL 1,000 mL, Rate: 125 ml/hr, Infuse over: 8 hr, Route: IV, Dosing Weight 87.5 kg, Total Volume: 1,000, Start date: 06/07/17 7:07:00 ALL PURPOSE CLERK, Duration: 30 day, Stop date: 07/07/17 7:06:00 CDT, 2.08, m2 No Longer Active 06/07/2017 [facility] Ondansetron 4 mg, 2 mL, Route: IVP, Drug form: INJ, Q6H, Dosing Weight 87.5, kg, PRN Nausea & Vomiting, Start date: 06/07/17 7:07:00 ALL PURPOSE CLERK, Duration: 30 day, Stop date: 07/07/17 7:06:00 CDTNotes: (Same as: Zofran) MEDICATION WASTE Product Size: 4 mg Product Wasted: ___ mg No Longer Active 06/07/2017 [facility] Acetaminophen 650 mg, 2 tab, Route: PO, Drug form: TAB, Q4H, Dosing Weight 87.5, kg, PRN Pain 1-3/Temp > 100.4 F, Start date: 06/07/17 7:07:00 ALL PURPOSE CLERK, Duration: 30 day, Stop date: 07/07/17 7:06:00 CDTNotes: Do not ex ceed 4 gm/day. (Same as: Tylenol) No Longer Active 06/07/2017 [facility] Sodium Chloride 0.9% IV 1,000 mL 1,000 mL, Rate: 75 ml/hr, Infuse over: 13.3 hr, Route: IV, Dosing Weight 87.5 kg, Total Volume: 1,000, Start date: 06/07/17 6:02:00 ALL PURPOSE CLERK, Duration: 30 day, Stop date: 07/07/17 6:01:00 CDT, 2.08, m2 Inactive 06/07/2017 [facility] Insulin Glargine (Lantus 3ML Pen) 100 Units/1 Ml Inj, 20 Bedtime Active 05/28/2017 [facility] Insulin Glargine (Lantus) 100 Units/Ml Ml, 34 Units Sub-Q Bedtime Active 05/28/2017 [facility] Amoxicillin 875 MG / Clavulanate 125 MG Oral Tablet amoxicillin 875 mg-potassium clavulanate 125 mg tablet Active 05/24/2017 [facility] Azithromycin 250 MG Oral Tablet azithromycin 250 mg tablet Active 05/10/2017 [facility] benzonatate 200 MG Oral Capsule benzonatate 200 mg capsule Take 1 capsule 3 times a day by oral route for 10 days. Active 05/10/2017 [facility] Infinity Meter Kit Infinity Meter Kit Active 05/10/2017 [facility] lancing device lancing device Active 05/10/2017 [facility] 3 ML Insulin Glargine 100 UNT/ML Pen Injector [Lantus] Lantus Solostar U-100 Insulin 100 unit/mL (3 mL) subcutaneous pen 20 units at bedtime Active 05/10/2017 [facility] True Metrix Glucose Test Strip True Metrix Glucose Test Strip use 4 times a day Active 05/10/2017 [facility] Clindamycin 150 MG Oral Capsule clindamycin HCl 150 mg capsule 2 capsules every 6 hrs Active 04/12/2017 [facility] gabapentin 300 MG Oral Capsule gabapentin 300 mg capsule Take 1 capsule twice a day by oral route. Active 04/12/2017 [facility] Lisinopril 20 MG Oral Tablet lisinopril 20 mg tablet Take 1 tablet twice a day by oral route. Active 04/12/2017 [facility] Metolazone 2.5 MG Oral Tablet metolazone 2.5 mg tablet Take 1 tablet twice a day by oral route. Active 04/12/2017 [facility] Regular Insulin, Human 100 UNT/ML Injectable Solution [Novolin R] Novolin R Regular U-100 Insulin 100 unit/mL injection solution Active 04/12/2017 [facility] Pentoxifylline 400 MG Extended Release Oral Tablet pentoxifylline ER 400 mg tablet,extended release Take 1 tablet 3 times a day by oral route. Active 04/12/2017 [facility] Microencapsulated Potassium Chloride 10 MEQ Extended Release Oral Tablet potassium chloride ER 10 mEq tablet,extended release(part/cryst) Take 1 tablet twice a day by oral route. Active 04/12/2017 [facility] Acetaminophen 300 MG / Codeine Phosphate 30 MG Oral Tablet acetaminophen 300 mg-codeine 30 mg tablet Active 03/11/2017 [facility] Cephalexin 500 MG Oral Capsule cephalexin 500 mg capsule Active 03/11/2017 [facility] Ciprofloxacin 500 MG Oral Tablet ciprofloxacin 500 mg tablet Take 1 tablet twice a day by oral route. Active 03/11/2017 [facility] Doxepin Hydrochloride 50 MG/ML Topical Cream doxepin 5 % topical cream Active 03/11/2017 [facility] gabapentin 100 MG Oral Capsule gabapentin 100 mg capsule Active 03/11/2017 [facility] gatifloxacin 5 MG/ML Ophthalmic Solution gatifloxacin 0.5 % eye drops Active 03/11/2017 [facility] Ketorolac Tromethamine 5 MG/ML Ophthalmic Solution ketorolac 0.5 % eye drops Active 03/11/2017 [facility] Levofloxacin 250 MG Oral Tablet levofloxacin 250 mg tablet Active 03/11/2017 [facility] Mupirocin 0.02 MG/MG Topical Ointment mupirocin 2 % topical ointment Active 03/11/2017 [facility] prednisolone acetate 10 MG/ML Ophthalmic Suspension prednisolone acetate 1 % eye drops,suspension Active 03/11/2017 [facility] Sulfamethoxazole 800 MG / Trimethoprim 160 MG Oral Tablet sulfamethoxazole 800 mg-trimethoprim 160 mg tablet Active 03/11/2017 [facility] tramadol hydrochloride 50 MG Oral Tablet tramadol 50 mg tablet Active 03/11/2017 [facility] TRUEplus Lancets 28 gauge TRUEplus Lancets 28 gauge Active 03/11/2017 [facility] Acetaminophen With Codeine (Tylenol With Codeine #3 Tablet) 1 Each Tablet, 300 Mg Oral Every 6 Hours as needed for Pain Active 03/04/2017 [facility] Carvedilol 6.25 Mg Tablet, 3.125 Mg Oral Bedtime Active 03/04/2017 [facility] Ferrous Sulfate 325 Mg Tablet, 325 Mg Oral Daily Active 03/04/2017 [facility] Metolazone 5 Mg Tablet, 2.5 Mg Oral Twice A Day Active 03/04/2017 [facility] Zaroxolyn , 2.5 Mg Oral Twice A Day as needed for Shortness Of Breath Active 03/04/2017 [facility] Lantus 100 units/mL 25 unit, SUB-Q, Bedtime, # 10 mL, 0 Refill(s), Pharmacy: [facility] [id number] Active 02/11/2017 [facility] pneumococcal 13-valent vaccine 0.5 mL, Route: IM, Drug Form: INJ, Daily, Start date: 02/09/17 9:00:00 CDT, Duration: 1 doses or times, Stop date: 02/09/17 9:00:00 CDTNotes: Shake well prior to use (Same as: Prevnar 13) Inactive 02/09/2017 [facility] metolazone 2.5 mg oral tablet 2.5 mg, 1 tab, Route: PO, Drug form: TAB, BID, Dosing Weight 87.5, kg, Start date: 02/09/17 9:00:00 CDT, Duration: 30 day, Stop date: 03/10/17 17:00:00 CSTNotes: (Same as: Zaroxolyn) No Longer Active 02/09/2017 [facility] lisinopril 20 mg, Route: PO, Drug form: TAB, BID, Dosing Weight 87.5, kg, Start date: 02/09/17 9:00:00 CDT, Duration: 30 day, Stop date: 03/10/17 17:00:00 ALL PURPOSE CLERK Inactive 02/09/2017 [facility] gabapentin 300 mg oral capsule 300 mg, 1 cap, Route: PO, Drug form: CAP, Q12H, Dosing Weight 87.5, kg, Start date: 02/09/17 9:00:00 CDT, Duration: 30 day, Stop date: 03/10/17 21:00:00 CSTNotes: (Same as: Neurontin) No Longer Active 02/09/2017 [facility] influenza virus vaccine, inactivated 0.5 mL, Route: IM, Drug Form: SUSP, Daily, Start date: 02/09/17 9:00:00 CDT, Duration: 1 doses or times, Stop date: 02/09/17 9:00:00 CDTNotes: (Same as: Fluzone Quadrivalent, Fluarix Quadrivalent) For 3 years of age and older (0.5 mL IM) Shake well before use Inactive 02/09/2017 [facility] Humalog 10 unit, 0.1 mL, Route: SUB-Q, [...] days from Date No Longer Active 02/09/2017 [facility] NovoLOG 10 unit, Route: SUB-Q, Drug form: SOLN, TID-Before Meals, Dosing Weight 87.5, kg, Start date: 02/09/17 7:30:00 CDT, Duration: 30 day, Stop date: 03/10/17 16:30:00 ALL PURPOSE CLERK Inactive 02/09/2017 [facility] ciprofloxacin 500 mg, 1 tab, Route: PO, Drug form: TAB, [id number], Dosing Weight 87.5, kg, Start date: 02/09/17 1:00:00 CDT, Duration: 30 day, Stop date: 03/10/17 13:00:00 ALL PURPOSE CLERK, ABX Indication: Skin/Soft Tissue Infectio nNotes: May interfere w/enteral feedings - Take 1 hr before or 2 hrs after antacids, dairy pdt & minerals. On empty stomach. Inactive 02/09/2017 [facility] Lantus 100 units/mL 25 unit, 0.25 mL, Route: SUB-Q, Drug form: SOLN, Bedtime, Dosing Weight 87.5, kg, Start date: 02/09/17 0:03:00 CDT, Duration: 30 day, Stop date: 03/10/17 21:00:00 CSTNotes: (Same as: Lantus) Do not hold insulin without contacting prescriber WASTE: F/P - Black; E - [employer] Trash [employer] "single patient use only" No Longer Active 02/09/2017 [facility] hydrALAZINE 50 mg oral tablet 50 mg, 1 tab, Route: PO, Drug form: TAB, Q8H, Dosing Weight 87.5, kg, Start date: 02/09/17 0:00:00 CDT, Duration: 30 day, Stop date: 03/10/17 16:00:00 ALL PURPOSE CLERK Inactive 02/09/2017 [facility] lisinopril 20 mg oral tablet 20 mg=1 tab, PO, BID, 0 Refill(s) No Longer Active 02/09/2017 [facility] metolazone 2.5 mg oral tablet 2.5 mg=1 tab, PO, BID, 0 Refill(s) Active 02/09/2017 [facility] furosemide 40 mg oral tablet 80 mg=2 tab, PO, QAM, 0 Refill(s) No Longer Active 02/09/2017 [facility] gabapentin 300 mg oral capsule 300 mg=1 cap, PO, BID, 0 Refill(s) No Longer Active 02/09/2017 [facility] ciprofloxacin 500 mg oral tablet 500 mg=1 tab, PO, Q12H, 0 Refill(s) No Longer Active 02/09/2017 [facility] hydrALAZINE 50 mg oral tablet 50 mg=1 tab, PO, Q8H, 0 Refill(s) No Longer Active 02/09/2017 [facility] NovoLOG 100 units/mL 10 unit, SUB-Q, TID-Before Meals, # 10 mL, 0 Refill(s) Active 02/09/2017 [facility] potassium chloride 10 mEq oral tablet, extended release 10 mEq=1 tab, PO, BID, 0 Refill(s) No Longer Active 02/09/2017 [facility] Lantus 100 units/mL 34 units, SUB-Q, Bedtime, 0 Refill(s) No Longer Active 02/09/2017 [facility] atorvastatin 80 mg oral tablet 80 mg=1 tab, PO, Daily, 0 Refill(s) Active 02/09/2017 [facility] clindamycin 150 mg, PO, Q6H, 2 capsules, 0 Refill(s) Active 02/09/2017 [facility] aspirin 81 mg tablet, chewable 81 mg=1 tab, CHEW, Daily, 0 Refill(s) Active 02/09/2017 [facility] clindamycin 300 mg, 1 cap, Route: PO, Drug form: CAP, [id number], Dosing Weight 104.545, kg, Start date: 02/08/17 21:00:00 CDT, Duration: 5 day, Stop date: 02/13/17 15:00:00 ALL PURPOSE CLERK, ABX Indication: Skin/Soft Tissue Inf ectionNotes: (Same As: Cleocin) No Longer Active 02/09/2017 [facility] Lipitor 80 mg, 2 tab, Route: PO, Drug form: TAB, Bedtime, Dosing Weight 104.545, kg, Start date: 02/08/17 21:00:00 CDT, Duration: 30 day, Stop date: 03/09/17 21:00:00 CSTNotes: (Same as: Lipitor) No Longer Active 02/09/2017 [facility] Saline Flush 0.9% 10 ml, Route: IVP, Drug Form: INJ, Dosing Weight 104.545, kg, Q12H, Start date: 02/08/17 21:00:00 CDT, Duration: 30 day, Stop date: 03/10/17 9:00:00 CSTNotes: (Same as: BD Posiflush) No Longer Active 02/09/2017 [facility] aspirin 81 mg tablet, enteric coated 81 mg, 1 tab, Route: PO, Drug form: ECTAB, Daily, Dosing Weight 104.545, kg, Start date: 02/08/17 21:00:00 CDT, Duration: 30 day, Stop date: 03/10/17 9:00:00 CSTNotes: Do not crush or chew. (Same As: Ecotrin) No Longer Active 02/09/2017 [facility] hydrALAZINE 10 mg, 0.5 mL, Route: IVP, Drug form: INJ, Q6H, Dosing Weight 104.545, kg, PRN Hypertension, Start date: 02/08/17 20:35:00 CDT, Duration: 30 day, Stop date: 03/10/17 20:34:00 ALL PURPOSE CLERK, FOR sbp > 180 MMNotes: (Same as: Apresoline) Push over 5 minutes No Longer Active 02/09/2017 [facility] insulin lispro 5 unit, 0.05 mL, Route: [...] days from Date No Longer Active 02/09/2017 [facility] glucagon 1 mg, Route: IM, Drug form: PDR/INJ, PRN, Dosing Weight 104.545, kg, PRN Blood Glucose Results, Start date: 02/08/17 20:35:00 CDT, Duration: 30 day, Stop date: 03/10/17 19:34:00 ALL PURPOSE CLERK No Longer Active 02/09/2017 [facility] Dextrose 50% Syringe 25 gm, 50 mL, Route: IVP, Drug Form: INJ, Dosing Weight 104.545, kg, PRN, PRN Blood Glucose Results, Start date: 02/08/17 20:35:00 CDT, Duration: 30 day, Stop date: 03/10/17 19:34:00 ALL PURPOSE CLERK No Longer Active 02/09/2017 [facility] Saline Flush 0.9% 10 ml, Route: IVP, Drug Form: INJ, Dosing Weight 104.545, kg, PRN, PRN Line Flush, Start date: 02/08/17 20:26:00 CDT, Duration: 30 day, Stop date: 03/10/17 19:25:00 [employer] CLERK Inactive 02/09/2017 [facility] ondansetron 4 mg, 2 mL, Route: IVP, Drug form: INJ, Q8H, Dosing Weight 104.545, kg, PRN Nausea & Vomiting, Start date: 02/08/17 20:26:00 CDT, Duration: 30 day, Stop date: 03/10/17 20:25:00 CSTNotes: (Same as: Taylor) MEDICATION WASTE Product Size: 4 mg Product Wasted: ___ mg No Longer Active 02/09/2017 [facility] acetaminophen 650 mg, 2 tab, Route: PO, Drug form: TAB, Q4H, Dosing Weight 104.545, kg, PRN Pain 1-3/Temp > 99.5 F, Start date: 02/08/17 20:26:00 CDT, Duration: 30 day, Stop date: 03/10/17 20:25:00 CSTNotes: Do not exceed 4 gm/day. (Same as: Tylenol) No Longer Active 02/09/2017 [facility] bisacodyl 10 mg, 1 supp, Route: NV, Drug form: SUPP, Daily, Dosing Weight 104.545, kg, PRN Constipation, Start date: 02/08/17 20:26:00 CDT, Duration: 30 day, Stop date: 03/10/17 20:25:00 CSTNotes: (Same As: Dulcolax, Bisco-Lax) No Longer Active 02/09/2017 [facility] Saline Flush 0.9% 10 mL, Route: IVP, Drug Form: INJ, Dosing Weight 104.545, kg, PRN, PRN Line Flush, Start date: 02/08/17 16:21:00 CDT, Duration: 30 day, Stop date: 03/10/17 15:20:00 CSTNotes: (Same as: BD Posiflush) No Longer Active 02/08/2017 [facility] Pentoxifylline 400 Mg Tablet.er, 400 Mg Oral Three Times A Day Active 09/20/2016 [facility] Cephalexin 500 Mg Capsule, 500 Mg Oral Three Times A Day Active 09/05/2016 [facility] Ciprofloxacin Hcl (Cipro) 500 Mg Tablet, 500 Mg Oral Every 12 Hours Active 09/05/2016 [facility] Clindamycin Hcl 150 Mg Capsule, 300 Mg Oral Every 8 Hours Active 09/05/2016 [facility] Sulfamethoxazole/Trimethoprim (Bactrim Ds Tablet) 1 Each Tablet, 1 Tab Oral Twice A Day Active 09/05/2016 [facility] Lisinopril (Zestril*) 20 Mg Tablet, 20 Mg Oral Twice A Day Active 02/04/2016 [facility] Acetaminophen With Codeine (Tylenol With Codeine #3 Tablet) 1 Each Tablet, 300 Mg Oral Every 4 Hours Active 09/05/2015 [facility] Famotidine 20 Mg Tab, 20 Mg Oral Daily Active 09/05/2015 [facility] Levofloxacin (Levaquin) 500 Mg Tablet, 500 Mg Oral Daily Active 09/05/2015 [facility] Meclizine Hcl 12.5 Mg Tablet, 25 Mg Oral Twice A Day Active 09/05/2015 [facility] Cholecalciferol (Vitamin D3) (Vitamin D) 5,000 Unit Tablet, 5000 Units Oral Daily Active 04/01/2015 [facility] Aspirin (Aspir 81) 81 Mg Tablet.dr Daily Active [facility] Atorvastatin Calcium 80 Mg Tablet Daily Active [facility] Carvedilol 3.125 Mg Tablet Bedtime Active [facility] Clopidogrel Bisulfate (Clopidogrel) 75 Mg Tablet Daily Active [facility] Famotidine 20 Mg Tab Twice A Day Active [facility] Furosemide 20 Mg Tablet Twice A Day Active [facility] Hydralazine Hcl 10 Mg Tablet Every 8 Hours Active [facility] Insulin Glargine (Lantus 3ML Pen) 100 Units/1 Ml Inj Bedtime Active [facility] Insulin Regular, Human (Novolin R) 100 Unit/1 Ml Vial Three Times A Day Active [facility] Isosorbide Dinitrate 20 Mg Tablet Daily Active [facility] Tamsulosin Hcl (Flomax*) 0.4 Mg Cap Daily Active [facility] Albuterol 0.83 MG/ML Inhalation Solution albuterol sulfate 2.5 mg/3 mL (0.083 %) solution for nebulization Inhale 3 mL 3 times a day by nebulization route as needed. Active [facility] atorvastatin 80 MG Oral Tablet atorvastatin 80 mg tablet TAKE 1 TABLET BY MOUTH EVERYDAY AT BEDTIME Active [facility] Azithromycin 250 MG Oral Tablet azithromycin 250 mg tablet TAKE 2 TABLETS (500 MG) BY ORAL ROUTE ONCE DAILY FOR 1 DAY THEN 1 TABLET (250 MG) BY ORAL ROUTE ONCE DAILY FOR 4 DAYS Active [facility] carvedilol 3.125 MG Oral Tablet carvedilol 3.125 mg tablet TAKE 1 TABLET BY MOUTH EVERYDAY AT BEDTIME Active [facility] clonidine clonidine as needed Active [facility] clopidogrel 75 MG Oral Tablet clopidogrel 75 mg tablet TAKE 1 TABLET BY MOUTH EVERY DAY Active [facility] Fluconazole 150 MG Oral Tablet fluconazole 150 mg tablet Take 1 tablet every day by oral route for 7 days. Active [facility] Furosemide 40 MG Oral Tablet furosemide 40 mg tablet Take 1 tablet twice a day by oral route as needed. Active [facility] Hydralazine Hydrochloride 50 MG Oral Tablet hydralazine 50 mg tablet TAKE 1 TABLET BY MOUTH EVERY 8 HOURS Active [facility] Isosorbide Dinitrate 30 MG Oral Tablet isosorbide dinitrate 30 mg tablet TAKE 1 TABLET BY MOUTH EVERY DAY Active [facility] 3 ML Insulin Glargine 100 UNT/ML Pen Injector [Lantus] Lantus Solostar U-100 Insulin 100 unit/mL (3 mL) subcutaneous pen Inject 24 units every day by subcutaneous route in the morning. Active [facility] 3 ML insulin detemir 100 UNT/ML Pen Injector [Levemir] Levemir FlexTouch U-100 Insulin 100 unit/mL (3 mL) subcutaneous pen Active [facility] Loratadine 10 MG Oral Tablet loratadine 10 mg tablet TAKE 1 TABLET BY MOUTH EVERY DAY NEEDED Active [facility] Lorazepam 2 MG Oral Tablet lorazepam 2 mg tablet Take 1 tablet every day by oral route as needed. Active [facility] medroxyprogesterone acetate 5 MG Oral Tablet medroxyprogesterone 5 mg tablet TAKE 1 TABLET BY MOUTH EVERY DAY Active [facility] Mupirocin 0.02 MG/MG Topical Ointment mupirocin 2 % topical ointment APPLY A SMALL AMOUNT TO THE AFFECTED AREA BY TOPICAL ROUTE 3 TIMES PER DAY Active [facility] Insulin, Aspart, Human 100 UNT/ML Injectable Solution [NovoLog] Novolog U-100 Insulin aspart 100 unit/mL subcutaneous solution Inject 7 units 3 times a day by subcutaneous route as needed for 30 days. Active [facility] Nystatin 131026 UNT/ML Topical Cream nystatin 100,000 unit/gram topical cream Apply 1 application twice a day by topical route for 15 days. Active [facility] Nystatin 100 UNT/MG Topical Powder nystatin 100,000 unit/gram topical powder APPLY TO THE AFFECTED AREA(S) BY TOPICAL ROUTE 2 TIMES PER DAY Active [facility] OneTouch Delica Lancets 33 gauge OneTouch Delica Lancets 33 gauge Active [facility] OneTouch Verio Mid Control solution OneTouch Verio Mid Control solution Active [facility] OneTouch Verio strips OneTouch Verio strips Active [facility] sevelamer carbonate 800 MG Oral Tablet sevelamer carbonate 800 mg tablet Take 1 tablet 3 times a day by oral route for 90 days. Active [facility] Suprep Bowel Prep Kit 17.5 gram-3.13 gram-1.6 gram oral solution Suprep Bowel Prep Kit 17.5 gram-3.13 gram-1.6 gram oral solution Active [facility] Tamsulosin hydrochloride 0.4 MG Oral Capsule tamsulosin 0.4 mg capsule TAKE 1 CAPSULE(S) EVERY DAY BY ORAL ROUTE. Active [facility] Ultra Thin Lancets 31 gauge Ultra Thin Lancets 31 gauge Take 1 each every day by miscell. route for 90 days. Active [facility] Ergocalciferol 98314 UNT Oral Capsule Vitamin D2 50,000 unit capsule Take 1 capsule every week by oral route. Active [facility] Famotidine 20 MG Oral Tablet famotidine 20 mg tablet Active [facility] Acetaminophen 325 MG / Hydrocodone Bitartrate 5 MG Oral Tablet hydrocodone 5 mg-acetaminophen 325 mg tablet Active [facility] Lorazepam 0.5 MG Oral Tablet lorazepam 0.5 mg tablet Take 2 tablets 3 times a day by oral route. Active [facility] Nystatin 100 UNT/MG Topical Powder [Nystop] Nystop 100,000 unit/gram topical powder APPLY TO THE AFFECTED AREA(S) BY TOPICAL ROUTE 2 TIMES PER DAY Active [facility] rivaroxaban 15 MG Oral Tablet [Xarelto] Xarelto 15 mg tablet Take 1 tablet every day by oral route for 90 days. Active [facility] Acyclovir 800 MG Oral Tablet acyclovir 800 mg tablet Active [facility] Aspirin 81 MG Delayed Release Oral Tablet aspirin 81 mg tablet,delayed release Take 1 tablet every day by oral route. Active [facility] Ciprofloxacin 250 MG Oral Tablet ciprofloxacin 250 mg tablet Active [facility] True Metrix Glucose Test Strip True Metrix Glucose Test Strip Take 1 strip every day by miscell. route. Active [facility] Hydroxyzine Hydrochloride 25 MG Oral Tablet hydroxyzine HCl 25 mg tablet Take 1 tablet twice a day by oral route. Do not use benadryl, loratadine or lorazepam while using this med Active [facility] Allergies, Adverse Reactions, Alerts No Known Medication Allergies Immunizations Immunization Date Given Site Status Last Updated Comments Source pneumococcal polysaccharide PPV23 08/08/2018 [facility] pneumococcal 13-valent vaccine 02/09/2017 Left deltoid completed [facility] influenza virus vaccine, inactivated 02/09/2017 Right deltoid completed [facility] pneumococcal 13-valent vaccine 02/09/2017 Left deltoid completed [facility] pneumococcal conjugate PCV 13 02/09/2017 [facility] influenza, unspecified formulation 02/09/2017 [facility] Tdap 04/11/2015 [facility] Results Order Name Results Value Reference Range Date Interpretation Comments Source Alkaline phosphatase isoenzyme [Units/volume] in Serum or Plasma alkaline phosphatase 354 40 - 115 09/19/2018 [facility] Alkaline phosphatase isoenzyme [Units/volume] in Serum or Plasma intestinal isoenzymes 19 1 - 24 09/19/2018 [facility] Alkaline phosphatase isoenzyme [Units/volume] in Serum or Plasma bone isoenzymes 22 28 - 66 09/19/2018 [facility] Alkaline phosphatase isoenzyme [Units/volume] in Serum or Plasma liver isoenzymes 59 25 - 69 09/19/2018 [facility] Alkaline phosphatase isoenzyme [Units/volume] in Serum or Plasma placental isoenzymes 0 09/19/2018 [facility] Comprehensive metabolic 1999 panel - Serum or Plasma ALT 17 0 - 55 09/13/2018 [facility] Comprehensive metabolic 1999 panel - Serum or Plasma AST 22 5 - 34 09/13/2018 [facility] Comprehensive metabolic 1999 panel - Serum or Plasma BUN 41.4 8.4 - 25.0 09/13/2018 [facility] Comprehensive metabolic 1999 panel - Serum or Plasma alk phos 382 40 - 150 09/13/2018 [facility] Comprehensive metabolic 1999 panel - Serum or Plasma glucose 256 70 - 99 09/13/2018 [facility] Comprehensive metabolic 1999 panel - Serum or Plasma albumin 3.2 3.4 - 5.1 09/13/2018 [facility] Comprehensive metabolic 1999 panel - Serum or Plasma creatinine 4.39 0.72 - 1.25 09/13/2018 critical [facility] Comprehensive metabolic 1999 panel - Serum or Plasma eGFR non- 13 09/13/2018 abnormal [facility] Comprehensive metabolic 1999 panel - Serum or Plasma total bilirubin 1.7 0.2 - 1.2 09/13/2018 high [facility] Comprehensive metabolic 1999 panel - Serum or Plasma eGFR - 16 09/13/2018 abnormal [facility] Comprehensive metabolic 1999 panel - Serum or Plasma sodium 137 135 - 145 09/13/2018 [facility] Comprehensive metabolic 1999 panel - Serum or Plasma potassium 4.4 3.5 - 5.1 09/13/2018 [facility] Comprehensive metabolic 1999 panel - Serum or Plasma chloride 96 98 - 110 09/13/2018 low [facility] metabolic 1999 panel - Serum or Plasma total protein 7.2 6.1 - 8.2 09/13/2018 [facility] Comprehensive metabolic 1999 panel - Serum or Plasma calcium 8.8 9.0 - 10.2 09/13/2018 [facility] metabolic 1999 panel - Serum or Plasma CO2 32.2 20.0 - 32.0 09/13/2018 [facility] Comprehensive metabolic 1999 panel - Serum or Plasma anion gap 9 09/13/2018 [facility] Creatine kinase [Enzymatic activity/volume] in Serum or Plasma creatine kinase (CK) 60 30 - 200 09/13/2018 [facility] Hemoglobin A1c/Hemoglobin.total in Blood Hemoglobin A1c/Hemoglobin.total in Blood 8.3 1.0 - 5.7 09/13/2018 [facility] Hemoglobin A1c/Hemoglobin.total in Blood average blood glucose 192 09/13/2018 [facility] Lipid 1995 panel - Serum or Plasma HDL 40 40 - 0 09/13/2018 [facility] Lipid 1995 panel - Serum or Plasma triglyceride 82 0 - 150 09/13/2018 [facility] Lipid 1995 panel - Serum or Plasma VLDL (calculated) 16 09/13/2018 [facility] Lipid 1996 panel - Serum or Plasma cholesterol/HDL ratio 4.1 09/13/2018 [facility] Lipid 1995 panel - Serum or Plasma non-HDL cholesterol (calculated) 124 0 - 160 09/13/2018 [facility] Lipid 1995 panel - Serum or Plasma cholesterol 164 0 - 200 09/13/2018 [facility] Lipid 1995 panel - Serum or Plasma Cholesterol in LDL [Mass/volume] in Serum or Plasma 108 0 - 130 09/13/2018 [facility] Thyrotropin [Units/volume] in Serum or Plasma TSH 2.514 0.350 - 4.940 09/13/2018 [facility] Hemoglobin A1c/Hemoglobin.total in Blood A1C w/EAG 12.6 1.0 - 5.7 03/29/2018 [facility] Hemoglobin A1c/Hemoglobin.total in Blood average blood glucose 315 03/29/2018 [facility] Comprehensive metabolic 1999 panel - Serum or Plasma ALT 16 0 - 55 03/29/2018 [facility] Comprehensive metabolic 1999 panel - Serum or Plasma AST 21 5 - 34 03/29/2018 [facility] Comprehensive metabolic 1999 panel - Serum or Plasma BUN 37.9 8.4 - 25.7 03/29/2018 [facility] Comprehensive metabolic 1999 panel - Serum or Plasma alk phos 371 40 - 150 03/29/2018 [facility] Comprehensive metabolic 1999 panel - Serum or Plasma glucose 306 70 - 99 03/29/2018 [facility] metabolic 1999 panel - Serum or Plasma albumin 3.1 3.5 - 5.0 03/29/2018 [facility] Comprehensive metabolic 1999 panel - Serum or Plasma creatinine 3.72 0.72 - 1.25 03/29/2018 [facility] metabolic 1999 panel - Serum or Plasma eGFR non- 16 03/29/2018 abnormal [facility] Comprehensive metabolic 1999 panel - Serum or Plasma total bilirubin 1.2 0.2 - 1.2 03/29/2018 [facility] Comprehensive metabolic 1999 panel - Serum or Plasma eGFR - 20 03/29/2018 abnormal [facility] Comprehensive metabolic 1999 panel - Serum or Plasma sodium 135 136 - 145 03/29/2018 [facility] Comprehensive metabolic 1999 panel - Serum or Plasma potassium 4.8 3.5 - 5.1 03/29/2018 [facility] Comprehensive metabolic 1999 panel - Serum or Plasma chloride 95 98 - 107 03/29/2018 [facility] Comprehensive metabolic 1999 panel - Serum or Plasma total protein 6.8 6.4 - 8.3 03/29/2018 [facility] Comprehensive metabolic 1999 panel - Serum or Plasma calcium 8.5 8.8 - 10.0 03/29/2018 [facility] metabolic 1999 panel - Serum or Plasma CO2 32.9 23.0 - 31.0 03/29/2018 [facility] metabolic 1999 panel - Serum or Plasma anion gap 7 03/29/2018 [facility] PSA, total 0.49 0.00 - 4.00 03/29/2018 [facility] CHEM PANEL Magnesium Lvl 2.4 1.8 - 2.4 06/08/2017 [facility] CHEM PANEL eGFR 20 06/08/2017 Result Comment: The eGFR is calculated [...] should be multiplied by the estimated BMI. [facility] CHEM PANEL AST 15 0 - 37 06/08/2017 [facility] CHEM PANEL Alk Phos 161 39 - 136 06/08/2017 [facility] CHEM PANEL ALT 17 0 - 65 06/08/2017 [facility] CHEM PANEL Albumin Lvl 2.4 3.5 - 5.0 06/08/2017 [facility] CHEM PANEL Bili Total 0.6 0.2 - 1.3 06/08/2017 [facility] CHEM PANEL Calcium Lvl 7.9 8.5 - 10.5 06/08/2017 [facility] CHEM PANEL CO2 23 24 - 32 06/08/2017 [facility] CHEM PANEL Total Protein 5.9 6.4 - 8.4 06/08/2017 [facility] CHEM PANEL Creatinine Lvl 3.00 0.50 - 1.40 06/08/2017 [facility] CHEM PANEL BUN 59 7 - 22 06/08/2017 [facility] CHEM PANEL Glucose Lvl 91 70 - 99 06/08/2017 [facility] CHEM PANEL Sodium Lvl 144 135 - 145 06/08/2017 [facility] CHEM PANEL Chloride Lvl 111 95 - 109 06/08/2017 [facility] CHEM PANEL Potassium Lvl 4.6 3.5 - 5.1 06/08/2017 [facility] CHEM PANEL Globulin 3.5 2.7 - 4.2 06/08/2017 [facility] CHEM PANEL B/C Ratio 20 6 - 25 06/08/2017 [facility] CHEM PANEL AGAP 14.6 10.0 - 20.0 06/08/2017 [facility] CHEM PANEL A/G Ratio 0.7 0.7 - 1.6 06/08/2017 [facility] HEMATOLOGY Lymphocytes 19.4 20.0 - 40.0 06/08/2017 [facility] HEMATOLOGY Monocytes 10.7 2.0 - 12.0 06/08/2017 [facility] HEMATOLOGY Segs 65.2 45.0 - 75.0 06/08/2017 [facility] HEMATOLOGY Eosinophils # 0.2 0.0 - 0.5 06/08/2017 [facility] HEMATOLOGY Monocytes # 0.6 0.0 - 0.8 06/08/2017 [facility] [place] Lymphocytes # 1.1 1.0 - 5.5 06/08/2017 [facility] HEMATOLOGY Basophils 0.8 0.0 - 1.0 06/08/2017 [facility] [place] Eosinophils 3.9 0.0 - 4.0 06/08/2017 [facility] [place] Segs-Bands # 3.6 1.5 - 8.1 06/08/2017 [facility] [place] MCV 95.2 80.0 - 94.0 06/08/2017 [facility] [place] Hct 26.6 42.0 - 54.0 06/08/2017 [facility] [place] MPV 9.2 7.4 - 10.4 06/08/2017 [facility] [place] Hgb 8.8 14.0 - 18.0 06/08/2017 [facility] [place] MCH 31.5 27.0 - 31.0 06/08/2017 [facility] [place] RBC 2.80 4.70 - 6.10 06/08/2017 [facility] [place] MCHC 33.1 32.0 - 36.0 06/08/2017 [facility] [place] Platelet 151 133 - 450 06/08/2017 [facility] [place] RDW 16.7 11.5 - 14.5 06/08/2017 [facility] [place] WBC 5.6 3.7 - 10.4 06/08/2017 [facility] URINE AND STOOL UA Color Ltyellow 06/07/2017 [facility] URINE AND STOOL UA Urobilinogen <=1.0 mg/dL 0.1 - 1.0 06/07/2017 [facility] URINE AND STOOL UA Sq Epi None Seen 06/07/2017 [facility] URINE AND STOOL UA RBC 6 0 - 2 06/07/2017 [facility] URINE AND STOOL UA Mucus Few /LPF None Seen /LPF 06/07/2017 [facility] URINE AND STOOL UA Leuk Est Negative (06/07/17 10:52 AM) Negative 06/07/2017 [facility] URINE AND STOOL UA Protein >=300 mg/dL Negative mg/dL 06/07/2017 [facility] URINE AND STOOL UA pH 5.0 5.0 - 8.0 06/07/2017 [facility] URINE AND STOOL UA Glucose 150 mg/dL Negative mg/dL 06/07/2017 [facility] URINE AND STOOL UA Ketones Negative mg/dL Negative mg/dL 06/07/2017 [facility] URINE AND STOOL UA Spec Grav 1.012 <=1.030 06/07/2017 [facility] URINE AND STOOL UA Turbidity Slight *ABN* (06/07/17 10:52 AM) Clear 06/07/2017 [facility] URINE AND STOOL UA WBC <1 0 - 5 06/07/2017 [facility] URINE AND STOOL UA Bili Negative *NA* (06/07/17 10:52 AM) Negative 06/07/2017 [facility] URINE AND STOOL UA Nitrite Negative (06/07/17 10:52 AM) Negative 06/07/2017 [facility] URINE AND STOOL UA Blood Small *ABN* (06/07/17 10:52 AM) Negative 06/07/2017 [facility] URINE AND STOOL UA Urobilinogen <=1.0 mg/dL 0.1 - 1.0 06/07/2017 [facility] URINE AND STOOL UA Glucose 150 mg/dL Negative mg/dL 06/07/2017 [facility] URINE AND STOOL UA Protein >=300 mg/dL Negative mg/dL 06/07/2017 [facility] URINE AND STOOL UA pH 5.0 5.0 - 8.0 06/07/2017 [facility] URINE AND STOOL UA Spec Grav 1.011 <=1.030 06/07/2017 [facility] URINE AND STOOL UA Leuk Est Negative (06/07/17 3:27 AM) Negative 06/07/2017 [facility] URINE AND STOOL UA Nitrite Negative (06/07/17 3:27 AM) Negative 06/07/2017 [facility] URINE AND STOOL UA Blood Small *ABN* (06/07/17 3:27 AM) Negative 06/07/2017 [facility] URINE AND STOOL UA Bili Negative *NA* (06/07/17 3:27 AM) Negative 06/07/2017 [facility] URINE AND STOOL UA Ketones Negative mg/dL Negative mg/dL 06/07/2017 [facility] URINE AND STOOL UA RBC 3 0 - 2 06/07/2017 [facility] URINE AND STOOL UA Amorph Columba Occasional /HPF None Seen /HPF 06/07/2017 [facility] URINE AND STOOL UA Mucus Few /LPF None Seen /LPF 06/07/2017 [facility] URINE AND STOOL UA Bacteria Few /HPF None Seen /HPF 06/07/2017 [facility] URINE AND STOOL UA WBC 2 0 - 5 06/07/2017 [facility] URINE AND STOOL UA Color Ltyellow 06/07/2017 [facility] URINE AND STOOL UA Sq Epi None Seen 06/07/2017 [facility] URINE AND STOOL UA Turbidity Slight *ABN* (06/07/17 3:27 AM) Clear 06/07/2017 [facility] CHEM PANEL Ammonia 37.0 <=45.0 uMol/L 06/07/2017 [facility] CHEM PANEL Lactic Acid Lvl 0.8 0.5 - 2.2 06/07/2017 [facility] CARDIAC ENZYMES CK MB Index 3.2 0.0 - 2.5 06/07/2017 [facility] CARDIAC ENZYMES Troponin-I 0.03 0.00 - 0.40 06/07/2017 [facility] CARDIAC ENZYMES Total CK 112 12 - 191 06/07/2017 [facility] CARDIAC ENZYMES CK MB 3.6 0.5 - 3.6 06/07/2017 [facility] CHEM PANEL Phosphorus 3.3 2.5 - 4.5 06/07/2017 [facility] CHEM PANEL Magnesium Lvl 2.4 1.8 - 2.4 06/07/2017 [facility] ELECTROLYTES AGAP 15.6 10.0 - 20.0 06/07/2017 [facility] ELECTROLYTES Bili Total 0.6 0.2 - 1.3 06/07/2017 [facility] ELECTROLYTES Alk Phos 186 39 - 136 06/07/2017 [facility] ELECTROLYTES B/C Ratio 20 6 - 25 06/07/2017 [facility] ELECTROLYTES A/G Ratio 0.6 0.7 - 1.6 06/07/2017 [facility] ELECTROLYTES Potassium Lvl 4.6 3.5 - 5.1 06/07/2017 [facility] ELECTROLYTES Sodium Lvl 140 135 - 145 06/07/2017 [facility] ELECTROLYTES Globulin 4.4 2.7 - 4.2 06/07/2017 [facility] ELECTROLYTES AST 19 0 - 37 06/07/2017 [facility] ELECTROLYTES Chloride Lvl 107 95 - 109 06/07/2017 [facility] ELECTROLYTES Calcium Lvl 7.8 8.5 - 10.5 06/07/2017 [facility] ELECTROLYTES CO2 22 24 - 32 06/07/2017 [facility] ELECTROLYTES ALT 22 0 - 65 06/07/2017 [facility] ELECTROLYTES Albumin Lvl 2.5 3.5 - 5.0 06/07/2017 [facility] ELECTROLYTES Total Protein 6.9 6.4 - 8.4 06/07/2017 [facility] ELECTROLYTES eGFR 19 06/07/2017 Result Comment: The eGFR is calculated [...] should be multiplied by the estimated BMI. [facility] ELECTROLYTES Creatinine Lvl 3.14 0.50 - 1.40 06/07/2017 [facility] ELECTROLYTES BUN 63 7 - 22 06/07/2017 [facility] ELECTROLYTES Glucose Lvl 246 70 - 99 06/07/2017 [facility] HEMATOLOGY Segs-Bands # 7.8 1.5 - 8.1 06/07/2017 [facility] HEMATOLOGY Monocytes # 0.7 0.0 - 0.8 06/07/2017 [facility] HEMATOLOGY Lymphocytes 8.0 20.0 - 40.0 06/07/2017 [facility] HEMATOLOGY Lymphocytes # 0.7 1.0 - 5.5 06/07/2017 [facility] HEMATOLOGY Monocytes 7.3 2.0 - 12.0 06/07/2017 [facility] HEMATOLOGY Eosinophils 0.5 0.0 - 4.0 06/07/2017 [facility] [place] Basophils 0.5 0.0 - 1.0 06/07/2017 [facility] HEMATOLOGY Segs 83.7 45.0 - 75.0 06/07/2017 [facility] [place] MPV 9.0 7.4 - 10.4 06/07/2017 [facility] [place] MCH 31.0 27.0 - 31.0 06/07/2017 [facility] HEMATOLOGY Hct 28.5 42.0 - 54.0 06/07/2017 [facility] HEMATOLOGY MCV 96.4 80.0 - 94.0 06/07/2017 [facility] [place] RBC 2.96 4.70 - 6.10 06/07/2017 [facility] HEMATOLOGY Hgb 9.2 14.0 - 18.0 06/07/2017 [facility] HEMATOLOGY WBC 9.3 3.7 - 10.4 06/07/2017 [facility] HEMATOLOGY RDW 16.3 11.5 - 14.5 06/07/2017 [facility] HEMATOLOGY Platelet 137 133 - 450 06/07/2017 [facility] [place] MCHC 32.2 32.0 - 36.0 06/07/2017 [facility] HEMATOLOGY INR 1.19 0.85 - 1.17 06/07/2017 [facility] [place] PT 15.2 12.0 - 14.7 06/07/2017 [facility] [place] PTT 47.7 22.9 - 35.8 06/07/2017 [facility] 25-Hydroxyvitamin D [Mass/volume] in Serum or Plasma vitamin D,25-oh,total,ia 14 30 - 100 03/15/2017 [facility] Comprehensive metabolic 1999 panel - Serum or Plasma glucose 512 65 - 99 03/13/2017 [facility] Comprehensive metabolic 1999 panel - Serum or Plasma urea nitrogen (BUN) 53 7 - 25 03/13/2017 [facility] Comprehensive metabolic 1999 panel - Serum or Plasma creatinine 2.38 0.70 - 1.25 03/13/2017 [facility] Comprehensive metabolic 1999 panel - Serum or Plasma eGFR non-afr. ghanaian 27 > or=60 03/13/2017 [facility] Comprehensive metabolic 1999 panel - Serum or Plasma eGFR 31 > or=60 03/13/2017 [facility] Comprehensive metabolic 1999 panel - Serum or Plasma BUN/creatinine ratio 22 6 - 22 03/13/2017 [facility] Comprehensive metabolic 1999 panel - Serum or Plasma sodium 131 135 - 146 03/13/2017 [facility] Comprehensive metabolic 1999 panel - Serum or Plasma potassium 4.8 3.5 - 5.3 03/13/2017 [facility] Comprehensive metabolic 1999 panel - Serum or Plasma chloride 95 98 - 110 03/13/2017 [facility] Comprehensive metabolic 1999 panel - Serum or Plasma carbon dioxide 26 20 - 31 03/13/2017 [facility] Comprehensive metabolic 1999 panel - Serum or Plasma calcium 8.9 8.6 - 10.3 03/13/2017 [facility] Comprehensive metabolic 1999 panel - Serum or Plasma protein, total 6.6 6.1 - 8.1 03/13/2017 [facility] Comprehensive metabolic 1999 panel - Serum or Plasma albumin 3.2 3.6 - 5.1 03/13/2017 [facility] Comprehensive metabolic 1999 panel - Serum or Plasma globulin 3.4 1.9 - 3.7 03/13/2017 [facility] Comprehensive metabolic 1999 panel - Serum or Plasma albumin/globulin ratio 0.9 1.0 - 2.5 03/13/2017 [facility] Comprehensive metabolic 1999 panel - Serum or Plasma bilirubin, total 0.5 0.2 - 1.2 03/13/2017 [facility] Comprehensive metabolic 1999 panel - Serum or Plasma alkaline phosphatase 146 40 - 115 03/13/2017 [facility] Comprehensive metabolic 1999 panel - Serum or Plasma AST 11 10 - 35 03/13/2017 [facility] Comprehensive metabolic 1999 panel - Serum or Plasma ALT 9 9 - 46 03/13/2017 [facility] Lipid 1995 panel - Serum or Plasma cholesterol, total 268 <200 03/13/2017 [facility] Lipid 1995 panel - Serum or Plasma HDL cholesterol 50 >40 03/13/2017 [facility] Lipid 1995 panel - Serum or Plasma triglycerides 238 <150 03/13/2017 [facility] Lipid 1995 panel - Serum or Plasma LDL-cholesterol 178 03/13/2017 [facility] Lipid 1995 panel - Serum or Plasma chol/HDLC ratio 5.4 <5.0 03/13/2017 [facility] Lipid 1995 panel - Serum or Plasma non HDL cholesterol 218 <130 03/13/2017 [facility] Magnesium [Mass/volume] in Serum or Plasma magnesium 2.2 1.5 - 2.5 03/13/2017 [facility] Phosphate [Mass/volume] in Serum or Plasma phosphate ( phosphorus) 4.6 2.1 - 4.3 03/13/2017 [facility] Thyrotropin [Units/volume] in Serum or Plasma TSH 1.83 0.40 - 4.50 03/13/2017 [facility] Hemoglobin A1c/Hemoglobin.total in Blood hemoglobin A1C >14.0 <5.7 03/13/2017 [facility] Erythrocyte sedimentation rate by Westergren method sed rate by modified westergren 92 < or=20 03/12/2017 [facility] CBC W Auto Differential panel - Blood white blood cell count 7.5 3.8 - 10.8 03/12/2017 [facility] CBC W Auto Differential panel - Blood red blood cell count 4.35 4.20 - 5.80 03/12/2017 [facility] CBC W Auto Differential panel - Blood hemoglobin 12.9 13.2 - 17.1 03/12/2017 [facility] CBC W Auto Differential panel - Blood hematocrit 39.9 38.5 - 50.0 03/12/2017 [facility] CBC W Auto Differential panel - Blood MCV 91.7 80.0 - 100.0 03/12/2017 [facility] CBC W Auto Differential panel - Blood MCH 29.7 27.0 - 33.0 03/12/2017 [facility] CBC W Auto Differential panel - Blood MCHC 32.3 32.0 - 36.0 03/12/2017 [facility] CBC W Auto Differential panel - Blood RDW 12.2 11.0 - 15.0 03/12/2017 [facility] CBC W Auto Differential panel - Blood platelet count 281 140 - 400 03/12/2017 [facility] CBC W Auto Differential panel - Blood MPV 11.0 7.5 - 12.5 03/12/2017 [facility] CBC W Auto Differential panel - Blood absolute neutrophils 5730 1500 - 7800 03/12/2017 [facility] CBC W Auto Differential panel - Blood absolute lymphocytes 1013 850 - 3900 03/12/2017 [facility] CBC W Auto Differential panel - Blood absolute monocytes 578 200 - 950 03/12/2017 [facility] CBC W Auto Differential panel - Blood absolute eosinophils 98 15 - 500 03/12/2017 [facility] CBC W Auto Differential panel - Blood absolute basophils 83 0 - 200 03/12/2017 [facility] CBC W Auto Differential panel - Blood neutrophils 76.4 03/12/2017 [facility] CBC W Auto Differential panel - Blood lymphocytes 13.5 03/12/2017 [facility] CBC W Auto Differential panel - Blood monocytes 7.7 03/12/2017 [facility] CBC W Auto Differential panel - Blood eosinophils 1.3 03/12/2017 normal [facility] CBC W Auto Differential panel - Blood basophils 1.1 03/12/2017 normal [facility] CHEM PANEL Calcium Lvl 7.6 8.5 - 10.5 02/10/2017 [facility] CHEM PANEL CO2 28 24 - 32 02/10/2017 [facility] CHEM PANEL AGAP 10.5 10.0 - 20.0 02/10/2017 [facility] CHEM PANEL eGFR 30 02/10/2017 Result Comment: The eGFR is calculated [...] should be multiplied by the estimated BMI. [facility] CHEM PANEL Potassium Lvl 3.5 3.5 - 5.1 02/10/2017 [facility] CHEM PANEL Chloride Lvl 106 95 - 109 02/10/2017 [facility] CHEM PANEL Sodium Lvl 141 135 - 145 02/10/2017 [facility] CHEM PANEL Creatinine Lvl 2.20 0.50 - 1.40 02/10/2017 [facility] CHEM PANEL BUN 38 7 - 22 02/10/2017 [facility] CHEM PANEL Glucose Lvl 85 70 - 99 02/10/2017 [facility] HEMATOLOGY MPV 8.0 7.4 - 10.4 02/10/2017 [facility] HEMATOLOGY Platelet 224 133 - 450 02/10/2017 [facility] HEMATOLOGY RDW 13.6 11.5 - 14.5 02/10/2017 [facility] HEMATOLOGY MCV 93.3 80.0 - 94.0 02/10/2017 [facility] HEMATOLOGY Hct 32.3 42.0 - 54.0 02/10/2017 [facility] HEMATOLOGY MCHC 34.0 32.0 - 36.0 02/10/2017 [facility] HEMATOLOGY MCH 31.7 27.0 - 31.0 02/10/2017 [facility] HEMATOLOGY Hgb 11.0 14.0 - 18.0 02/10/2017 [facility] HEMATOLOGY RBC 3.46 4.70 - 6.10 02/10/2017 [facility] HEMATOLOGY WBC 6.8 3.7 - 10.4 02/10/2017 [facility] HEMATOLOGY Basophils # 0.1 0.0 - 0.2 02/10/2017 [facility] HEMATOLOGY Eosinophils # 0.4 0.0 - 0.5 02/10/2017 [facility] HEMATOLOGY Monocytes # 0.6 0.0 - 0.8 02/10/2017 [facility] HEMATOLOGY Basophils 1.5 0.0 - 1.0 02/10/2017 [facility] HEMATOLOGY Lymphocytes # 1.4 1.0 - 5.5 02/10/2017 [facility] HEMATOLOGY Segs-Bands # 4.3 1.5 - 8.1 02/10/2017 [facility] HEMATOLOGY Eosinophils 5.5 0.0 - 4.0 02/10/2017 [facility] HEMATOLOGY Monocytes 9.6 2.0 - 12.0 02/10/2017 [facility] HEMATOLOGY Lymphocytes 20.6 20.0 - 40.0 02/10/2017 [facility] HEMATOLOGY Segs 62.8 45.0 - 75.0 02/10/2017 [facility] CHEM PANEL Bili Total 0.6 0.2 - 1.3 02/09/2017 [facility] CHEM PANEL Alk Phos 121 39 - 136 02/09/2017 [facility] CHEM PANEL Calcium Lvl 8.0 8.5 - 10.5 02/09/2017 [facility] CHEM PANEL B/C Ratio 14 6 - 25 02/09/2017 [facility] CHEM PANEL Total Protein 6.1 6.4 - 8.4 02/09/2017 [facility] CHEM PANEL Globulin 4.0 2.7 - 4.2 02/09/2017 [facility] CHEM PANEL Albumin Lvl 2.1 3.5 - 5.0 02/09/2017 [facility] CHEM PANEL AST 15 0 - 37 02/09/2017 [facility] CHEM PANEL ALT 12 0 - 65 02/09/2017 [facility] CHEM PANEL A/G Ratio 0.5 0.7 - 1.6 02/09/2017 [facility] CHEM PANEL Potassium Lvl 3.8 3.5 - 5.1 02/09/2017 [facility] CHEM PANEL Creatinine Lvl 2.33 0.50 - 1.40 02/09/2017 [facility] CHEM PANEL Sodium Lvl 140 135 - 145 02/09/2017 [facility] CHEM PANEL BUN 32 7 - 22 02/09/2017 [facility] CHEM PANEL AGAP 12.8 10.0 - 20.0 02/09/2017 [facility] CHEM PANEL Chloride Lvl 104 95 - 109 02/09/2017 [facility] CHEM PANEL CO2 27 24 - 32 02/09/2017 [facility] CHEM PANEL Glucose Lvl 262 70 - 99 02/09/2017 [facility] CHEM PANEL eGFR 28 02/09/2017 Result Comment: The eGFR is calculated [...] should be multiplied by the estimated BMI. [facility] CARDIAC ENZYMES CK MB Index 3.8 0.0 - 2.5 02/08/2017 [facility] CARDIAC ENZYMES Troponin-I 0.05 0.00 - 0.40 02/08/2017 [facility] CARDIAC ENZYMES CK MB 3.1 0.5 - 3.6 02/08/2017 [facility] CARDIAC ENZYMES Total CK 81 12 - 191 02/08/2017 [facility] ELECTROLYTES AGAP 9.3 10.0 - 20.0 02/08/2017 [facility] ELECTROLYTES eGFR 26 02/08/2017 Result Comment: The eGFR is calculated [...] should be multiplied by the estimated BMI. [facility] ELECTROLYTES CO2 29 24 - 32 02/08/2017 [facility] ELECTROLYTES Chloride Lvl 105 95 - 109 02/08/2017 [facility] ELECTROLYTES Calcium Lvl 8.2 8.5 - 10.5 02/08/2017 [facility] ELECTROLYTES Glucose Lvl 78 70 - 99 02/08/2017 [facility] ELECTROLYTES BUN 29 7 - 22 02/08/2017 [facility] ELECTROLYTES Creatinine Lvl 2.50 0.50 - 1.40 02/08/2017 [facility] ELECTROLYTES Sodium Lvl 140 135 - 145 02/08/2017 [facility] ELECTROLYTES Potassium Lvl 3.3 3.5 - 5.1 02/08/2017 [facility] HEMATOLOGY Basophils 0.6 0.0 - 1.0 02/08/2017 [facility] HEMATOLOGY Eosinophils 0.2 0.0 - 4.0 02/08/2017 [facility] HEMATOLOGY Lymphocytes # 0.7 1.0 - 5.5 02/08/2017 [facility] HEMATOLOGY Segs-Bands # 8.2 1.5 - 8.1 02/08/2017 [facility] HEMATOLOGY Basophils # 0.1 0.0 - 0.2 02/08/2017 [facility] HEMATOLOGY Monocytes # 0.5 0.0 - 0.8 02/08/2017 [facility] HEMATOLOGY Lymphocytes 7.0 20.0 - 40.0 02/08/2017 [facility] HEMATOLOGY Segs 86.6 45.0 - 75.0 02/08/2017 [facility] HEMATOLOGY Monocytes 5.6 2.0 - 12.0 02/08/2017 [facility] HEMATOLOGY PTT 37.1 22.9 - 35.8 02/08/2017 [facility] HEMATOLOGY PT 13.3 12.0 - 14.7 02/08/2017 [facility] HEMATOLOGY INR 1.01 0.85 - 1.17 02/08/2017 [facility] HEMATOLOGY MCHC 33.2 32.0 - 36.0 02/08/2017 [facility] HEMATOLOGY RBC 3.83 4.70 - 6.10 02/08/2017 [facility] HEMATOLOGY WBC 9.4 3.7 - 10.4 02/08/2017 [facility] [place] Hgb 11.9 14.0 - 18.0 02/08/2017 [facility] [place] Platelet 251 133 - 450 02/08/2017 [facility] [place] RDW 13.6 11.5 - 14.5 02/08/2017 [facility] [place] MPV 8.4 7.4 - 10.4 02/08/2017 [facility] [place] MCV 93.7 80.0 - 94.0 02/08/2017 [facility] [place] Hct 35.9 42.0 - 54.0 02/08/2017 [facility] [place] MCH 31.1 27.0 - 31.0 02/08/2017 [facility] LIPIDS Chol 303 <=199 mg/dL 02/08/2017 [facility] LIPIDS HDL 56 >=61 mg/dL 02/08/2017 [facility] LIPIDS VLDL 27 02/08/2017 [facility] LIPIDS LDL (Calculated) 220 <=99 mg/dL 02/08/2017 [facility] LIPIDS Trig 133 <=149 mg/dL 02/08/2017 [facility] LIPIDS CHD Risk 5.41 4.00 - 7.30 02/08/2017 [facility] SPECIAL CHEMISTRY Hgb A1C 12.9 <=5.6 % 02/08/2017 [facility] Pathology Reports No Data Provided for This Section Diagnostic Reports Report Value Date Source Esophagus BA swallow function video DX MODIFIED [...] speech pathology report for further details. SL: [id number] 06/08/2017 [facility] Brain wo contrast CT Clinical Indication: Head [...] chronic microvascular ischemic changes. SL: KPATEL-M 06/07/2017 [facility] Spine cervical wo contrast CT Clinical Indication: [...] spine without acute fractures or subluxations. SL: KPATEL-M 06/07/2017 [facility] Pelvis AP DX Clinical Indication: Status post [...] Degenerative changes within the visualized spine. SL: [id number] 06/07/2017 [facility] Chest 1view DX EXAM: Chest x-ray one [...] cardiomegaly. No evidence of pulmonary edema. SL: [id number] 06/07/2017 [facility] Retroperitoneal Complete US Clinical Indication: - CHAI, [...] noted. IMPRESSION: 1. Unremarkable renal U/S SL: SROSENBLUM-PC 02/09/2017 [facility] Esophagus BA swallow function video DX Patient Name: EDWGIE HORVATH : 1950; Age: 66 years Male MR: [id number] Study: Esophagus BA swallow function video DX [...] penetration with deep penetration on partial volumes. [place] consistency barium: Flash penetration. Pudding coated barium: No aspiration or any significant laryngeal penetration. Barium with cracker preparation: No aspiration or any significant laryngeal penetration. SL: [id number] 02/09/2017 [facility] contrast MRI Clinical Indication: Slurred speech and [...] white matter disease changes/small vessel disease. SL: KPATEL-M 02/09/2017 [facility] contrast MRA Clinical Indication: Patient complained of slurred speech and unsteady gait since this morning. Stroke Comparison: CT head 02/08/2017. Technique: Magnetic resonance angiography of the [place] was performed without contrast. 3D [...] to developmental hypoplasia or severe stenosis. SL: KPANESS 02/09/2017 [facility] Neck wo contrast MRA Clinical Indication: Slurred [...] cervical carotid or left vertebral arteries. SL: KPANESS 02/09/2017 [facility] Brain contrast CT Study: Brain wo contrast CT [...] skull is intact. Mild left frontal and [id number] bilateral ethmoid air cell opacification is present. [...] would be recommended for further assessment. SL: [id number] 02/08/2017 [facility] Brain wo contrast CT I have been advised from the scanning technologist from [facility] that the incorrect name was applied to this examination and should be disregarded. A report will be faxed to the [facility] Emergency Department. Clinical Indication: ct rcu544.80 - right sided drift, slurred speech, woke [...] midline shift. There are no intra-axial or extra -axial fluid collections, intraventricular or intraparenchymal hemorrhage. The [...] hemorrhage. Report will be faxed to the [facility] Emergency Department following the dictation at 5:23 PM SL: [id number] 02/08/2017 [facility] Chest 1view DX Chest 1view DX 66 [...] radiographic evidence of acute cardiopulmonary disease. SL: SSMILEY-MEGA 02/08/2017 [facility] Consultation Notes No Data Provided for This Section Discharge Summaries No Data Provided for This Section History and Physicals No Data Provided for This Section Vital Signs Vital Sign Value Date Comments Source Diastolic (mm Hg) 50 10/10/2018 [facility] Height 69 10/10/2018 [facility] Systolic (mm Hg) 110 10/10/2018 [facility] Weight 188 10/10/2018 [facility] Diastolic (mm Hg) 68 09/12/2018 [facility] Height 69 09/12/2018 [facility] Systolic (mm Hg) 136 09/12/2018 [facility] Weight 190 09/12/2018 [facility] Diastolic (mm Hg) 59 08/08/2018 [facility] Height 69 08/08/2018 [facility] Systolic (mm Hg) 122 08/08/2018 [facility] Weight 187.2 08/08/2018 [facility] Diastolic (mm Hg) 66 07/11/2018 [facility] Height 69 07/11/2018 [facility] Systolic (mm Hg) 118 07/11/2018 [facility] Weight 184 07/11/2018 [facility] Diastolic (mm Hg) 66 05/23/2018 [facility] Height 69 05/23/2018 [facility] Systolic (mm Hg) 138 05/23/2018 [facility] Weight 192 05/23/2018 [facility] Diastolic (mm Hg) 76 04/25/2018 [facility] Height 69 04/25/2018 [facility] Systolic (mm Hg) 120 04/25/2018 [facility] Weight 188 04/25/2018 [facility] Heart Rate 60 06/09/2017 [facility] Respitory Rate 16 06/09/2017 [facility] Systolic (mm Hg) 175 06/09/2017 [facility] Diastolic (mm Hg) 91 06/09/2017 [facility] Temperature Oral (F) 98.3 F 06/09/2017 [facility] Systolic (mm Hg) 173 06/08/2017 [facility] Diastolic (mm Hg) 82 06/08/2017 [facility] Heart Rate 60 06/08/2017 [facility] Respitory Rate 16 06/08/2017 [facility] Temperature Oral (F) 98.1 F 06/08/2017 [facility] Heart Rate 60 06/08/2017 [facility] Respitory Rate 16 06/08/2017 [facility] Systolic (mm Hg) 173 06/08/2017 [facility] Diastolic (mm Hg) 82 06/08/2017 [facility] Temperature Oral (F) 98.1 F 06/08/2017 [facility] Weight 95.597 06/07/2017 [facility] BMI Calculated 28.58 06/07/2017 [facility] Height 182.88 cm 06/07/2017 [facility] Diastolic (mm Hg) 66 05/24/2017 [facility] Height 69 05/24/2017 [facility] Systolic (mm Hg) 136 05/24/2017 [facility] Weight 202 05/24/2017 [facility] Diastolic (mm Hg) 50 05/10/2017 [facility] Height 69 05/10/2017 [facility] Systolic (mm Hg) 110 05/10/2017 [facility] Weight 198 05/10/2017 [facility] Diastolic (mm Hg) 79 04/12/2017 [facility] Height 69 04/12/2017 [facility] Systolic (mm Hg) 154 04/12/2017 [facility] Weight 196 04/12/2017 [facility] Diastolic (mm Hg) 94 03/22/2017 [facility] Height 69 03/22/2017 [facility] Systolic (mm Hg) 172 03/22/2017 [facility] Diastolic (mm Hg) 70 03/11/2017 [facility] Height 69 03/11/2017 [facility] Systolic (mm Hg) 136 03/11/2017 [facility] Weight 185 03/11/2017 [facility] Systolic (mm Hg) 153 02/11/2017 [facility] Diastolic (mm Hg) 77 02/11/2017 [facility] Temperature Oral (F) 98.0 F 02/11/2017 [facility] Respitory Rate 16 02/11/2017 [facility] Heart Rate 60 02/11/2017 [facility] Respitory Rate 16 02/11/2017 [facility] Systolic (mm Hg) 157 02/11/2017 [facility] Diastolic (mm Hg) 80 02/11/2017 [facility] Heart Rate 57 02/11/2017 [facility] Temperature Oral (F) 98.1 F 02/11/2017 [facility] Heart Rate 58 02/11/2017 [facility] Respitory Rate 16 02/11/2017 [facility] Temperature Oral (F) 97.8 F 02/11/2017 [facility] Systolic (mm Hg) 121 02/11/2017 [facility] Diastolic (mm Hg) 61 02/11/2017 [facility] BMI Calculated 28.49 02/09/2017 [facility] Height 175.26 cm 02/09/2017 [facility] Weight 87.5 02/09/2017 [facility] BMI Calculated 33.07 02/08/2017 [facility] Weight 104.545 02/08/2017 [facility] Height 177.8 cm 02/08/2017 [facility] Encounters Location Location Details Encounter Type Encounter Number Reason For Visit Attending Provider ADM Date DC Date Status Source [facility] Observation [id number] Sanya Kumar 02/08/2017 02/11/2017 [facility] Family Practice - Care Management Анна Novoa: [address], [address], [place] [address], Ph. [id number] Анна Novoa 03/08/2017 [facility] Ramonita Allan MD: [address] [place] [address], Ph. [id number] Ramonita Allan 03/11/2017 [facility] Ramonita Allan MD: [address] [place] [address], Ph. [id number] Ramonita Allan 03/22/2017 [facility] Practice - Care Management [facility]: [address], [address], [place] [address], Ph. [id number] [facility] 04/06/2017 [facility] Ramonita Allan MD: [address] [place] [address], Ph. [id number] Ramonita Allan 04/12/2017 [facility] Practice - Care Management [facility]: [address], [address], [place] [address], Ph. [id number] [facility] 04/21/2017 [facility] Practice - Care Management Анна Novoa: [address], [address], [place] [address], Ph. [id number] Анна Novoa 05/02/2017 [facility] Ramonita Allan MD: [facility] [place] [address], Ph. [id number] Ramonita Allan 05/10/2017 [facility] - Care Management Анна Novoa: [address], [address], [place] [address], Ph. [id number] Анна Novoa 05/11/2017 [facility] Joseph Miller MD: [address] [place] [address], Ph. [id number] Joseph Miller 05/18/2017 [facility] Ramonita Allan MD: [facility] [place] [address], Ph. [id number] Ramonita Allan 05/24/2017 [facility] - Care Management Анна Novoa: [address], [address], [place] [address], Ph. [id number] Анна Novoa 05/25/2017 [facility] - Care Management Анна Novoa: [address], [address], [place] [address], Ph. [id number] Анна Novoa 06/01/2017 [facility] Observation [id number] April Arthur 06/07/2017 06/09/2017 [facility] Practice - Care Management Анна Novoa: [address], [address], [place] [address], Ph. [id number] Анна Novoa 06/15/2017 [facility] Ramonita Allan MD: [address] [place] [address], Ph. [id number] Ramonita Allan 03/28/2018 [facility] Ramonita Allan MD: [address] [place] [address], Ph. [id number] Ramonita Allan 04/25/2018 [facility] Ramonita Allan MD: [address] [place] [address], Ph. [id number] Ramonita Allan 04/25/2018 [facility] Ramonita Allan MD: [address] [place] [address], Ph. [id number] Ramonita Allan 04/25/2018 [facility] MD: [address] [place] [address], Ph. [id number] Ramonita Allan 05/23/2018 [facility] Ramonita Allan MD: [facility] [place] [address], Ph. [id number] Ramonita Allan 05/23/2018 [facility] Ramonita Allan MD: [address] [place] [address], Ph. [id number] Ramonita Allan 07/11/2018 [facility] Ramonita Allan MD: [address] [place] [address], Ph. [id number] Ramonitaconsuelo Allan 07/11/2018 [facility] Departed Emergency Room [id number] EDUARDO DEL CID MD 07/26/2018 07/26/2018 [facility] Ramonita Allan MD: [address] [place] [address], Ph. [id number] Ramonita Allan 08/08/2018 [facility] Ramonita Allan MD: [address] [place] [address], Ph. [id number] Ramonita Allan 08/08/2018 [facility] Ramonita Allan MD: [address] [place] [address], Ph. [id number] Ramonita Allan 09/12/2018 [facility] Ramonita Allan MD: [address] [place] [address], Ph. [id number] Ramonita Allan 09/12/2018 [facility] Ramonita Allan MD: [address] [place] [address], Ph. [id number] Ramonitaconsuelo Allan 10/10/2018 [facility] Procedures Procedure Code Date Perfomer Comments Source Pacemaker 07/07/2018 [facility] Fistula Cannulation Set, Ea [id number] 06/09/2017 [facility] Other 04/11/2017 [facility] Amputation 04/11/2005 [facility] Amputation 04/11/2004 [facility] Stent placement [id number] [facility] Assessment and Plan Assessment and Plan Date Source Extracted from:Title: Discharge Summary * Author: April Arthur MD Date: 06/08/17 Discharge Plan Discharge Summary Plan Discharge Status: stable. Discharge instructions given: to patient. Discharge disposition: discharge to home (into the care of family member, self care). Prescriptions: continue same medications, written and given to patient. Diagnosis ARF. Course Improving. Education and Follow-up Counseled: patient. Extracted from:Title: Addendum to H&P Author: Jose Enriquez MD [...] observation. I anticipate discharge after 1 midnight. 06/09/2017 KOFI Lopes Extracted from:Title: Clinical Document Author: Sanya Kumar MD Date: [...] Please follow-up with primary care physician Addendum by Sanya Kumar MD on 02/11/2017 17:33 Correction date of admission is: 02/08/2017 Extracted from:Title: Clinical Document Author: Maria Isabel Crespo MD Date: 02/11/17 NEUROLOGY Progress Note - Daily [facility] Completed: Feb, 09:03 by Maria Isabel Crespo MD RM: 233 - 1P, SE ParveenA EDWIGE HORVATH 66y (: 1950) M Attending: Sanya Kumar MD Service: Internal Medicine Reason for Admission: SLURRED SPEECH/ GAIT ABNORMALITY Working DRG: None Documented Code status: Full Code [Ordered] Current diet: Isolation: None Documented Allergies: NKDA SUBJECTIVE [...] intact ftn, hts Abnormal movements: none Coordination [id number] is intact Gait patient stood up and felt lightheaded sat down. 24hr Labs 02/11 0723 POC Performing Locatio See Note Glucose POC 56 L 02/10 2049 POC Performing Locatio See Note Glucose POC 128 H 02/10 1609 POC Performing Locatio See Note Glucose POC 182 H 02/10 1542 POC Performing Locatio See Note Glucose POC 194 H 02/10 1135 POC Performing Locatio See Note Glucose POC 156 [address] [place] still necessary (Yes/No): Line still necessary (Yes/No): Vitals Tmp(F) Pulse BP RR SpO2 FIO2 02/11 08:03 98.1 57 157/80 16 99 --- 02/11 04:00 97.8 58 121/61 16 99 --- 02/11 00:00 97.9 66 159/75 16 99 --- 02/10 20:00 97.5 63 151/77 16 99 --- 02/10 16:24 ---- 58 161/91 -- 100 --- 24 Hr Tmax: 98.1F (36.72c) at 02/11 08:03 Vital Signs are the last 5 in the past 48 hours. Date Wt(kg) Wt(lb) Ht(cm) Ht(in) Method 02/08 (initial) 104.55 230.00 177.80 70.00 Estimated I&O Record In Out Bal 02/10 24hr Tot 10 0 10 02/09 24hr Tot 20 480 -460 Medications (25) Active [...] mg PO Q4H 02/08/17 bisacodyl 10 mg NV Daily 02/08/17 glucagon 1 mg IM PRN [...] needs to rule out orthostatic hypotension. PLAN and TREATMENT 1. Blood pressure needs to be monitored from the orthostatic point of view. 2. SCDs to lower extremity. 3. Workup has been reviewed seems to be unremarkable. 4. Continue aspirin and statin 5. Discussed with the patient regarding sugar control Extracted from:Title: General Admission H&P * Author: Wang Denney [...] evaluation, expect 1 midnight stay for now 02/11/2017 [facility] Plan of Care Plan of Care Date Source Discharge Date 07/26/18 8:29pm Disposition LEFT AFTER MEDICAL SCREENING Condition at Discharge Other Forms Provided Work/School Excuse Prescriptions See Medication Section 07/26/2018 [facility] Social History Social History Date Source Social History Problem Response Recorded Date/Time Onset Date Status Hx Psychiatric Problems No 05/27/2017 4:15pm Not Applicable Not Applicable Hx Eating Disorder No 05/27/2017 4:15pm Not Applicable Not Applicable Hx Substance Use Disorder No 05/27/2017 4:15pm Not Applicable Not Applicable Hx Depression No 05/27/2017 4:15pm Not Applicable Not Applicable Hx Alcohol Use Yes 05/27/2017 4:15pm Not Applicable Not Applicable Hx Substance Use Treatment No 05/27/2017 4:15pm Not Applicable Not Applicable Hx Physical Abuse No 05/27/2017 4:15pm Not Applicable Not Applicable 07/26/2018 [facility] Social History TypeResponse Smoking Status Never smoker; Previous treatment: None; Ready to change: No; Concerns about tobacco use in household: No; Exposure to Tobacco Smoke None; Cigarette Smoking Last 365 Days No; Reg Smoking Cessation Counseling No entered on: 06/07/17 06/07/2017 [facility] Smoking Status Former Smoker (1 PPW) 03/11/2017 [facility] Family History No Data Provided for This Section Advance Directives Order Name Results Value Date Source Advance Directives Advance Directives Directive Response Recorded Date/Time Does the patient have an advance directive? No 05/27/17 4:15pm If yes, is advance directive on file with [facility]? No 05/27/17 4:15pm If not on file with [facility] will patient provide a copy? No 05/27/17 4:15pm 07/26/2018 [facility] Functional Status No Data Provided for This Section
--- OUTSIDE RECORDS SUMMARY | 2018-10-19 06:25 | XMS REPORT | Encounter Summary ---
Author Organization Unknown Address [address] [place] [address] Phone [phone] Care Team Providers Care Chief Radiation Therapist Name Role Phone Dr. Ramonita Allan 3 [phone] Joe Garcia MD 82 [phone] Rick Jolly MD 114 [phone] Osvaldo Nugent 118 [phone] Jw Berrios MD (Endocrinology) 119 [phone] Archie Ward DPM 120 [phone] Travis Archuleta MD 129 [phone] [facility] 247 [phone] Reason for Visit Type II diabetes mellitus uncontrolled; other - see typed reason Instructions 1. End stage renal failure on dialysis home health referral - Please call patient and schedule him an appointment. CBC w/ auto diff chronic care management referral home health referral 2. Type II diabetes mellitus uncontrolled type 2 diabetes: care instructions True Metrix Glucose Test Strip HbA1c (hemoglobin A1c), blood CMP, serum or plasma endocrinology referral lipid panel, serum TSH, serum or plasma 3. Productive cough albuterol sulfate 2.5 mg/3 mL (0.083 %) solution for nebulization 4. Body mass index 25-29 - overweight learning about healthy weight 5. Congestive heart failure cardiology referral 6. Abnormal gait due to muscle weakness CK (creatine kinase), total, serum 7. Deep venous thrombosis of upper extremity Discussion Note: None recorded. Plan of Care Reminders Provider Appointments Est Patient 10/10/2018 11:00AM Ramonita Allan MD Lab HbA1C (Hemoglobin a1C), Blood 09/12/2018 [facility] CMP, Serum or Plasma 09/12/2018 [facility] Lipid Panel, Serum 09/12/2018 [facility] CBC W/ Auto Diff 09/12/2018 [facility] TSH, Serum or Plasma 09/12/2018 [facility] CK (Creatine Kinase), Total, Serum 09/12/2018 [facility] Referral Endocrinology Referral 09/12/2018 Jw Berrios MD (Endocrinology) Home Health Referral 09/12/2018 Chronic Care Management Referral 09/12/2018 Care Management Cardiology Referral 09/12/2018 Bentley Matthews MD [facility] Referral 09/13/2018 Procedures None recorded. Surgeries None recorded. Imaging [...] TAKE 1 TABLET BY MOUTH EVERY DAY famotidine 20 mg tablet furosemide 40 mg tablet Take 1 tablet twice a day by oral route as needed. hydralazine 50 mg tablet TAKE 1 TABLET BY MOUTH EVERY 8 HOURS hydrocodone 5 mg-acetaminophen 325 mg tablet isosorbide dinitrate 30 mg tablet TAKE 1 TABLET BY MOUTH EVERY DAY Lantus Solostar U-100 Insulin 100 unit/mL (3 mL) subcutaneous pen Inject 24 units every day by subcutaneous route in the morning. Levemir FlexTouch U-100 Insulin 100 unit/mL (3 mL) subcutaneous pen lorazepam 0.5 mg tablet Take 2 tablets 3 times a day by oral route. medroxyprogesterone 5 mg tablet TAKE 1 TABLET [...] day by topical route for 15 days. Nystop 100,000 unit/gram topical powder APPLY TO THE AFFECTED AREA(S) BY TOPICAL ROUTE 2 TIMES PER DAY OneTouch Delica Lancets 33 gauge OneTouch Verio Mid Control solution sevelamer carbonate 800 mg tablet Take 1 tablet 3 times a day by oral route for 90 days. tamsulosin 0.4 mg capsule TAKE 1 CAPSULE(S) EVERY DAY BY ORAL ROUTE. True Metrix Glucose Test Strip Take 1 strip every day by miscell. route. Ultra Thin Lancets 31 gauge Take 1 each every day by miscell. route for 90 days. Xarelto 15 mg tablet Take 1 tablet every day by oral route for 90 days. Medications Administered None recorded. Vitals Height Weight BMI Blood Pressure 5 ft 9 in 190 lbs 28.1 kg/m2 136/68 mm[Hg] Lab Results Date Name Specimen Result Interpretation Description Value Range Status Address 09/12/2018 Lab No observation recorded. Allergies Code Code System Name Reaction [...] Stage Renal Failure on Dialysis Active 12/13/2017 Deep Venous Thrombosis of Upper Extremity Active 08/09/2018 Carpal Tunnel Syndrome Active 08/27/2018 Abnormal Gait Due to Muscle Weakness Active 09/13/2018 Hyperlipidemia Active Procedures Date Name Performed by 07/07/2018 Pacemaker Information not available 06/09/2017 Fistula Cannulation Set, Ea Information not available 04/11/2017 Other Information not available 04/11/2005 Amputation Information not available 04/11/2004 Amputation Information not available Vaccine List Vaccine Type influenza, unspecified formulation 02/09/2017 pneumococcal conjugate PCV 13 02/09/2017 pneumococcal polysaccharide PPV23 08/08/20180.5 mL Tdap 04/11/2015 Social History Smoking Status Former Smoker (1 PPW) Past Encounters 09/12/2018 End Stage Renal Failure on Dialysis; Type II Diabetes Mellitus Uncontrolled; Productive Cough; Body Mass Index 25-29 - Overweight; Congestive Heart Failure; Abnormal Gait Due to Muscle Weakness; Deep Venous Thrombosis of Upper Extremity Ramonita Allan MD: [address] [place] [address], Ph. History of Present Illness Note:68yo male presents for one-month follow-up appt with . Last visit was tcm visit for DVT of right arm at side of defibrillator on 08/08/18.<div>Still with blood clot in left UE from dialysis catheter/fistula. Is scheduled with neph, Dr Lynch on September 24 for procedure. Still using port for dialysis M,W,F. May need another temporary port. On Xarelto.</div><div>Needs referral to Dr Berrios, endo updated. Last referral on 08/18/18. Has not seen Dr Berrios yet for DM. Last A1c was 12.6% on 03/28/18.</div><div>Needs referral to Dr Bentley Matthews- was seen by Dr Garcai in past, cardiology.</div><div>Difficulty walking despite walker. Hard time getting up from sitting to standing. Would like home health to assess for bedside commode with rails to push himself up or grab bar for shower. Has shower chair, but needs something to pull up to stand.</div><div >
</div><div><div>Pt had appt on August 15 for f/u with digital content specialist, Dr Alberto Hematalex at [facility] for defibrillator follow-up. </div><div> Discharge medications from [facility] 07/28/17:</div><div>Atorvastatin 80mg qhs</div><div>Carvedilol 3.125mg qhs (Coreg)</div><div>Clonidine 0.1mg po prn SBP >170 (Catapres)</div><div>Clopidogrel 75mg qd - has been holding due to nosebleeds (Plavix)</div><div>Famotidine 20mg bid (Pepcid)</div><div> Furosemide 40mg bid prn (Lasix) - </div><div>Hydralazine 50mg tid</div><div> Hydrocodone 5/325mg q6hrs prn ([place])</div><div>Insulin 7units tid with meals (Novolog)</div><div>Insulin 20u qd at 0800 (Lantus)</div><div>Isosorbide 30mg qd </div><div>Lidocaine topical - as directed at dialysis</div><div>Lorazepam 0.5mg tid prn (Ativan)</div><div>Rivaroxaban 15mg qd (Xarelto)</div><div>Sevelamer 800mg tid with meal (Renvela)</div><div>Tamsulosin 0.4mg qd (Flomax).</div></div ><div>
</div><div>PMHx:
</div><div>ESRD - Started on hemodialysis 3x/wk in [place] in Nov 2017. Currently goes to dialysis 3x/wk on M, W, & F. (Nurse is Ghada [phone]).
</div><div>
</div><div>Type 2 DM for past 20yrs. Currently on insulin, both Lantus 20units at night & Novolog U100 7units tid ac meals. Daughter (Shahida) lives with him & his (& amp; two grandchildren) and helps monitor blood sugar. Usual blood sugar in 100- 388 range. Last A1c was 12.6% on 03/28/18.
</div><div>
</div><div> Peripheral neuropathy - was on gabapentin 300mg bid in past. Numbness in feet. H as had toe amputation. Will defer to neurology for restarting gabapentin medicat ion.
</div><div>CHF - Seen by cardiology, Dr. Garcia in [facility] in Nov 2017.
</div><div>CAD- has had '7 stents', per pt's daughter. Had cardiac cath on 04/29/17 - found 80% blockage in two of the stents, per pt. Had procedure "roto-rooter".
</div><div>PVD - stents in legs
</div><div>CVA - 2013 - imbalance, left sided weakness
</div><div>Hypertension
</div><div >Hyperlipidemia - currently on atorvastatin 80mg qhs
</div><div>BPH - on tamulosin 0.4mg qd.
</div><div>Allergies - sneezing, runny nose. Had flu vaccine & pneumonia vaccine at [facility].</div> Review of Systems:ROS as noted in the [...] General Adult Exam (male) Reported By: Patient Chief Writer: Chief Writer: present; with today Constitutional: Level of Distress: chronically ill. Ambulation: limited ambulation, ambulation with walker Psychiatric: Insight: poor insight. Mental Status: active and alert, normal affect ENMT: Oropharynx: moist mucous membranes Neck: Neck: supple. Lymph Nodes: no cervical LAD Lungs: Respiratory effort: no dyspnea. Auscultation: breath sounds normal, no wheezing, wet rales/crackles Cardiovascular: Heart Auscultation: RRR, normal S1, normal S2, no murmurs. Neck vessels: no carotid bruits. Pulses including femoral / pedal: diminished; AV shunt left antecubital fossa for dialysis with palpable flowDefibrillator right upper chest Musculoskeletal:: Extremities: no edema Neurologic: Gait and Station: irregular gait; unsteady, weak. Sensation: abnormal, monofilament test abnormal; diabetic neuropathy, toe amputated. Reflexes: diminished Skin: Inspection and palpation: lesion
--- OUTSIDE RECORDS SUMMARY | 2018-10-19 06:25 | XMS REPORT | Encounter Summary ---
Author Organization Unknown Address [address] [place] [address] Phone [phone] Care Team Providers Care Vb Net Programmer Name Role Phone Dr. Ramonita Allan 3 [phone] Joe Garcia MD 82 [phone] Rick Jolly MD 114 [phone] Osvaldo Nugent 118 [phone] Jw Berrios MD (Endocrinology) 119 [phone] Archie Ward DPM 120 [phone] Travis Archuleta MD 129 [phone] [facility] 247 [phone] Reason for Visit other - see typed reason Instructions 1. Peripheral vascular disease 2. End stage renal failure on dialysis 3. Type II diabetes mellitus uncontrolled type 2 diabetes: care instructions 4. Congestive heart failure isosorbide dinitrate 30 mg tablet 5. Amputated big toe 6. Body mass index 25-29 - overweight learning about healthy weight 7. Pruritus of skin hydroxyzine HCl 25 mg tablet 8. Onychomycosis of toenails podiatry referral - Please call patient and schedule him an appointment. 9. Hospital patient 10. Coronary arteriosclerosis 11. Open wound of lower leg Discussion Note: None recorded. Plan of Care Reminders Provider Appointments Est Patient 11/07/2018 3:45PM Ramonita Allan MD Lab None recorded. Referral Podiatry Referral 10/10/2018 Keshav Hernandez DPM Procedures None recorded. Surgeries None recorded. Imaging None recorded. Medications Name Start Date albuterol sulfate 2.5 mg/3 mL (0.083 %) solution for nebulization Inhale 3 mL 3 times a day by nebulization route as needed. atorvastatin 80 mg tablet TAKE 1 TABLET BY MOUTH EVERYDAY AT BEDTIME carvedilol 3.125 mg tablet TAKE 1 TABLET BY MOUTH EVERYDAY AT BEDTIME clonidine as needed famotidine 20 mg tablet furosemide 40 mg tablet Take 1 tablet twice a day by oral route as needed. hydralazine 50 mg tablet TAKE 1 TABLET BY MOUTH EVERY 8 HOURS hydrocodone 5 mg-acetaminophen 325 mg tablet hydroxyzine HCl 25 mg tablet Take 1 tablet twice a day by oral route. Do not use benadryl, loratadine or lorazepam while using this med isosorbide dinitrate 30 mg tablet TAKE 1 [...] ft 9 in 188 lbs 27.8 kg/m2 110/50 mm[Hg] Lab Results Date Name Specimen Result Interpretation Description Value Range Status Address 09/12/2018 CMP, Serum or Plasma Alt 17 U/L 0-55 U/L [facility]: [address] [place] [address], [place] Ast 22 U/L 5-34 U/L [facility]: [address] [place] High Bun 41.4 mg/dL 8.4-25.0 mg/dL Final [facility]: [address] [place] High Alk Phos 382 unit/L 40-150 unit/L Final [facility]: [address] [place] High Glucose 256 mg/dL 70-99 mg/dL Final [facility]: [address] [place] Low Albumin 3.2 g/dL 3.4-5.1 g/dL Final [facility]: [address] [place] CRITICAL HIGH Creatinine 4.39 mg/dL 0.72-1.25 mg/dL Final [facility]: [address] [place] ABNORMAL eGFR Non- 13 mL/min/1.73m2 Final [facility]: [address] [place] High Total Bilirubin 1.7 mg/dL 0.2-1.2 mg/dL Final [facility]: [address] [place] ABNORMAL eGFR - 16 mL/min/1.73m2 Final [facility]: [address] [place] Sodium 137 mEq/L 135-145 mEq/L Final [facility]: [address] [place] Potassium 4.4 mEq/L 3.5-5.1 mEq/L Final [facility]: [address] [place] Low Chloride 96 mmol/L 98-110 mmol/L Final [facility]: [address] [place] Total Protein 7.2 g/dL 6.1-8.2 g/dL Final [facility]: [address] [place] Low Calcium 8.8 mg/dL 9.0-10.2 mg/dL Final [facility]: [address] [place] High Co2 32.2 mmol/L 20.0-32.0 mmol/L Final [facility]: [address] [place] Anion Gap 9 calc Final [facility]: [address] [place] 09/12/2018 Lipid Panel, Serum Hdl 40 mg/dL 40-0 mg/dL Final [facility]: [address] Triglyceride 82 mg/dL 0-150 mg/dL Final [facility]: [address] VLDL (Calculated) 16 mg/dL Final [facility]: [address] [place] [address] cholesterol/HDL Ratio 4.1 mg/dL Final [facility]: [address] [place] [address] non-HDL Cholesterol (Calculated) 124 mg/dL 0-160 mg/dL Final [facility]: [address] [place] [address] Cholesterol 164 mg/dL 0-200 mg/dL Final [facility]: [address] [place] [address] LDL (Calculated) 108 mg/dL 0-130 mg/dL Final [facility]: [address] [place] [address] 09/12/2018 TSH, Serum or Plasma Tsh 2.514 uIU/mL 0.350-4.940 uIU/mL Final [facility]: [address] [place] [address] 09/12/2018 CK (Creatine Kinase), Total, Serum Creatine Kinase (CK) 60 U/L 30-200 U/L Final [facility]: [address] [place] [address] 09/12/2018 HbA1C (Hemoglobin a1C), Blood High A1C W/eag 8.3 % 1.0-5.7 % Final [facility]: [address] [place] [address] Average Blood Glucose 192 mg/dL Final [facility]: [address] [place] [address] 09/12/2018 Alkaline Phosphatase Isoenzyme, Quant, Serum or Plasma High Alkaline Phosphatase 354 U/L 40-115 U/L Final [facility]: [address] [place] [address] Intestinal Isoenzymes 19 % 1-24 % Final [facility]: [address] [place] [address] Low Bone Isoenzymes 22 % 28-66 % Final [facility]: [address] [place] [address] Liver Isoenzymes 59 % 25-69 % Final [facility]: [address] [place] [address] Placental Isoenzymes 0 % 0 % Final [facility]: [address] [place] [address] 09/12/2018 Lab No observation recorded. Allergies Code [...] Gait Due to Muscle Weakness Active 09/13/2018 Amputated Big Toe Active 10/10/2018 Hyperlipidemia Active Procedures Date Name Performed by [...] Status Former Smoker (1 PPW) Past Encounters 10/10/2018 Peripheral Vascular Disease; End Stage Renal Failure on Dialysis; Type II Diabetes Mellitus Uncontrolled; Congestive Heart Failure; Amputated Big Toe; Body Mass Index 25-29 - Overweight; Pruritus of Skin; Onychomycosis of Toenails; Hospital Patient; Coronary Arteriosclerosis; Open Wound of Lower Leg Ramonita Allan MD: [address] [place] [address], Ph. 09/12/2018 End Stage Renal Failure on Dialysis; Type II Diabetes Mellitus Uncontrolled; Productive Cough; Body Mass Index 25-29 - Overweight; Congestive Heart Failure; Abnormal Gait Due to Muscle Weakness; Deep Venous Thrombosis of Upper Extremity Ramonita Allan MD: [address] [place] [address], Ph. History of Present Illness Note:68yo male presents for one-month follow-up. Last visit 09/12/18. Since last visit, pt was hospitalized overnight at [facility] on 09/25-09/26/18 for CHF with too much fluid in lungs, fluid overload. Was given dialysis with four liters of fluid removed & extra Lasix in hospital & released on Tuesday evening. Resumed regular dialysis on ,, schedule.<div>Last 10/03/18 went to rn lactation, Dr Bentley Matthews. Consult note reviewed. Defibrillator was check & vascular studies on lower extremities with poor circulation. Has appt on 10/19/18 for [facility] for angiogram with stent as needed. Pt has been having intermittent claudication while walking.</div><div>Dr Matthews had pt discontinue Plavix. Continue Xarelto & ASA 81mg qd.</div><div>Here today for medication refills.</div>Scheduled for endo evaluation for DM with Dr Berrios later this month on November 02. Hemoglobin A1c improved to 8.3% on 09/12/18 from 12.6% on 03/28/18. notes that blood sugars have been better at home. Highest blood sugar this month was 600 (post-prandial). Lowest about 135. On average pre-meal blood sugar about 200 per pt & .<div>Pt saw neph, Dr Lynch and had balloon dilation of AV shunt in left arm on 09/26/18.</div><div>Pt went to [facility] last Tuesday for right lower leg ulcer. Started as dark spot. Is using bactroban on ulcer, less redness. Was evaluated by home health nurse, Sol Alexander. Home PT & OT haven't come yet.</div><div>
Recently:
Had DVT of right arm at side of defibrillator on 08/08/18.<div>Still with blood clot in left UE from dialysis catheter/fistula. Still using port for dialysis ,,. On ASA and Xarelto.</div><div>Has not seen Dr Berrios yet for DM. Last A1c was 12.6% on 03/28/18.</div><div>
</div><div>Difficulty walking despite walker. Hard time getting up from sitting to standing. Would like home health to assess for bedside commode with rails to push himself up or grab bar for shower. Has shower chair, but needs something to pull up to stand.</div><div>
</div><div> Bilateral great toe amputations on left in 2004, and right in 2005.
</div>< div>PVD - stents in right legs. Dr Matthews, rn lactation.</div><div>
</div><div >PMHx:
</div><div>ESRD - Started on hemodialysis 3x/wk in [place] in Nov 2017. Currently goes to dialysis 3x/wk on M, W, & F. (Nurse is Ghada [phone]).
</div><div>
</div><div>Type 2 DM for past 20yrs. Currently on insulin, both Lantus 20units at night & Novolog U100 7units tid ac meals. Daughter (Shahida) lives with him & his (& two grandchildren) and helps monitor blood sugar. Usual blood sugar in 100-388 range. Last A1c was 12.6% on 03/28/18.
</div><div>
</div><div>Peripheral neuropathy - was on gabapentin 300mg bid in past. Numbness in feet. Has had bilateral great toe amputations. Will defer to neurology for restarting g abapentin medication.
</div><div>CHF - Seen by cardiology, Dr. [...]
</div><div>Hyperlipidemia - currently on atorvastatin 80mg qhs
</div>< div>BPH - on tamulosin 0.4mg qd.
</div><div>Allergies - sneezing, runny nose. Had flu vaccine & pneumonia vaccine at [facility].</div></div> Review of Systems:ROS as noted in the [...] General Adult Exam (male) Reported By: Patient Packing Inspector: Packing Inspector: present; with today Constitutional: Level of Distress: chronically ill. Ambulation: limited ambulation, ambulation with walker Psychiatric: Insight: poor insight. Mental Status: active and alert, normal affect ENMT: Oropharynx: moist mucous membranes Neck: Neck: supple. Lymph Nodes: no cervical LAD Lungs: Respiratory effort: no dyspnea. Auscultation: breath sounds normal, no wheezing, wet rales/crackles Cardiovascular: Heart Auscultation: RRR, normal S1, normal S2, murmur, HAL. Neck vessels: no carotid bruits. Pulses including femoral / pedal: diminished; AV shunt left antecubital fossa for dialysis with palpable flowDefibrillator right upper chest Musculoskeletal:: Extremities: no edema Neurologic: Gait and Station: irregular gait; unsteady, weak. Sensation: abnormal, monofilament test abnormal; diabetic neuropathy, great toes amputated - see photo below. Reflexes: diminished Skin: Inspection and palpation: lesion; see photo below of feet, right lower leg with shallow wound.First photo of dialysis shunt on left upper arm
--- OUTSIDE RECORDS SUMMARY | 2018-10-19 06:26 | XMS REPORT | Encounter Summary ---
Author Organization Unknown Address [address] [place] [address] Phone [phone] Care Team Providers Care Fur Sorter Name Role Phone Dr. Ramonita Allan 3 [phone] Joe Garcia MD 82 [phone] Rick Jolly MD 114 [phone] Osvaldo Nugent 118 [phone] Jw Berrios MD (Endocrinology) 119 [phone] Archie Ward DPM 120 [phone] Travis Archuleta MD 129 [phone] [facility] 247 [phone] Reason for Visit hospital follow up - TCM (VFP) Instructions 1. Hospital patient transitional care management referral 2. Deep venous thrombosis of upper extremity 3. Body mass index 25-29 - overweight learning about healthy weight 4. Immunization Pneumovax 23 25 mcg/0.5 mL injection syringe 5. Screening for osteoporosis 6. Screening for malignant neoplasm of colon 7. End stage renal failure on dialysis 8. Type II diabetes mellitus uncontrolled type 2 diabetes: care instructions 9. Congestive heart failure 10. Stented coronary artery Discussion Note: None recorded. Plan of Care Patient Instructions Please follow up with your doctor in four weeks. Follow up with any specialists that we [...] us at if you experience these symptoms. In addition to these services our office offers sexual assault social worker services, home health options and chronic conditions management. Please reach out to us with your particular needs. Evening and Tuesday clinic hours are available if you have problems. If you have problems after hours, you can reach the [facility] physician continuity director at . Reminders Provider Appointments Est Patient 09/05/2018 3:30PM Ramonita Allan MD Lab None recorded. Referral Transitional Care Management Referral 08/08/2018 Procedures None recorded. Surgeries None recorded. Imaging None recorded. Medications Name Start Date atorvastatin 80 mg tablet TAKE 1 TABLET [...] BMI Blood Pressure 5 ft 9 in 187.2 lbs 27.6 kg/m2 122/59 mm[Hg] Lab Results None recorded. Allergies Code [...] Venous Thrombosis of Upper Extremity Active 08/09/2018 Hyperlipidemia Active Procedures Date Name Performed by [...] Status Former Smoker (1 PPW) Past Encounters 08/08/2018 Hospital Patient; Deep Venous Thrombosis of Upper Extremity; Body Mass Index 25- 29 - Overweight; Immunization; Screening for Osteoporosis; Screening for Malignant Neoplasm of Colon; End Stage Renal Failure on Dialysis; Type II Diabetes Mellitus Uncontrolled; Congestive Heart Failure; Stented Coronary Artery Ramonita Allan MD: [address] [place] [phone], Ph. 07/11/2018 Hospital Patient; Body Mass Index 25-29 - Overweight; End Stage Renal Failure on Dialysis; Type II Diabetes Mellitus Uncontrolled; Congestive Heart Failure; History of Cerebrovascular Accident; Essential Hypertension Ramonita Allan MD: [address] [place] [phone], Ph. History of Present Illness TCM Provider Visit Reported By: Patient HPI: Timing: Date of admit:, Date of discharge:, Date of Initial Contact:, Please describe what events led up to this hospitalization:, Is Transitional Care Management team involved? Yes. Discharge Information: Discharge Diagnoses:, Discharged from: [facility], Discharged to: Home, Hospital Records (H&P, DC Summary, Transition of Care Document) reviewed and scanned? Yes, Current Caregivers:family, Home health ordered? no If so, Agency Name . Functional Status No difficulty following discharge instructions, Taking medications as prescribed, Understands missed doses, Following recommended activity level Note:68yo male presents for TCM visit with . Last visit 07/11/18. Pt's took him to [facility] on 07/25/18 for right arm pain. Had ECG, CBC, BMP, CXR, XR left elbow, venous doppler at 07/25/18 - was told arthritis of right shoulder & sent home. The next day on 07/26/18 went to [facility]Patient's ER for same problem - no new tests run. Was given pain patch, but too expensive. Used Tylenol.<div>Returned to [facility] ER at 7am on 07/27/18, entire right arm hurting. Admitted to floor bed & had dialysis that night (missed on 07/26/18). Had repeat duplex US of right arm on 07/28 and was found to have DVT of right arm. Was started on rivaroxaban (Xarelto) that day. Had dialysis again on 07/28 for two hours & dismissed 07/28/18 evening. Resumed regular dialysis schedule last week, M,W,F.</div><div>Also sent home with [place] for pain.</div><div>Pt has appt next August 15 for f/u with senior technical specialist, Dr Alberto Hematpour at [facility] for defibrillator follow-up. Was supposed to go 08/01/18.</div><div>Discharge medications from [facility] 07/28/17:< /div><div>Atorvastatin 80mg qhs</div><div>Carvedilol 3.125mg qhs (Coreg)</div>< div>Clonidine 0.1mg po prn SBP >170 (Catapres)</div><div>Clopidogrel 75mg qd - has been holding due to nosebleeds (Plavix)</div><div>Famotidine 20mg bid (Pepcid)</div><div>Furosemide 40mg bid prn (Lasix) - </div><div>Hydralazine 50mg tid</div><div>Hydrocodone 5/325mg q6hrs prn ([place])</div><div>Insulin 7units tid with meals (Novolog)</div><div>Insulin 20u qd at 0800 (Lantus)</div>< div>Isosorbide 30mg qd</div><div>Lidocaine topical - as directed at dialysis< /div><div>Lorazepam 0.5mg tid prn (Ativan)</div><div>Rivaroxaban 15mg qd (Xarelto)</div><div>Sevelamer 800mg tid with meal (Renvela)</div><div>Tamsulosin 0.4mg qd (Flomax).</div> Review of Systems:ROS as noted in the [...] General Adult Exam (male) Reported By: Patient Electronic Gluer: Electronic Gluer: present; with today Constitutional: Level of Distress: [...]
--- OUTSIDE RECORDS SUMMARY | 2018-10-19 06:26 | XMS REPORT | Encounter Summary ---
Author Organization Unknown Address [address] [place] [address] Phone [phone] Care Team Providers Care Rubber Cutter And Shape Carver Name Role Phone Dr. Ramonita Allan 3 [phone] Joe Garcia MD 82 [phone] Rick Jolly MD 114 [phone] Osvaldo Nugent 118 [phone] Jw Berrios MD (Endocrinology) 119 [phone] Archie Ward DPM 120 [phone] Travis Archuleta MD 129 [phone] [facility] 247 [phone] Reason for Visit hospital follow up - TCM (VFP) Instructions 1. Hospital patient generic DME transitional care management referral chronic care management and care planning home visiting referral 2. Congestive heart failure 3. End stage renal failure on dialysis 4. Body mass index 25-29 - overweight learning about healthy weight 5. Type II diabetes mellitus uncontrolled type 2 diabetes: care instructions 6. History of cerebrovascular accident neurology referral - PLEASE FAX NOTES TO [phone]. 7. Diabetic neuropathy 8. Essential hypertension 9. Stented coronary artery Discussion Note: None recorded. Plan of Care Patient Instructions Please follow up with your doctor in four weeks. Follow up with any specialists that we discussed during your visit today. If you need help getting your medications filled, our [facility] can sync medication refills, deliver within [...] addition to these services our office offers social media campaign manager services, home health options and chronic conditions management. Please reach out to us with your particular needs. Evening and Tuesday clinic hours are available if you have problems. If you have problems after hours, you can reach the [facility] physician supervisor contact and service clerks at . Reminders Provider Appointments Est Patient 09/05/2018 3:30PM Ramonita Allan MD Lab None recorded. Referral Transitional Care Management Referral 07/11/2018 Neurology Referral 07/11/2018 Travis Archuleta MD Home Visiting Referral 08/09/2018 [facility] ([facility]) [facility] Procedures None recorded. Surgeries None recorded. Imaging [...] BMI Blood Pressure 5 ft 9 in 184 lbs 27.2 kg/m2 118/66 mm[Hg] Lab Results None recorded. Allergies Code [...] Failure; Stented Coronary Artery Ramonita Allan MD: [address] [place] [address], Ph. 07/11/2018 Hospital Patient; Congestive Heart Failure; End Stage Renal Failure on Dialysis; Body Mass Index 25-29 - Overweight; Type II Diabetes Mellitus Uncontrolled; History of Cerebrovascular Accident; Diabetic Neuropathy; Essential Hypertension; Stented Coronary Artery Ramonita Allan MD: [address] [place] [phone], Ph. History of Present Illness TCM Provider Visit Reported By: Patient HPI: Timing: Date of admit:, Date of discharge:, Date of Initial Contact:, Please describe what events led up to this hospitalization:, Is Transitional Care Management team involved? Yes. Discharge Information: Discharge Diagnoses:, Discharged from: [facility], Discharged to: Home, Hospital Records (H&P, DC Summary, Transition of Care Document) reviewed and scanned? Yes, Current Caregivers:family, Home health ordered? no If so, Agency Name . Functional Status No difficulty following discharge instructions, Taking medications as prescribed, Understands missed doses, Following recommended activity level, Is the patient dependent upon others to leave the home? yes Note:68yo male presents with his & daughter post-hospital visit. Pt was recently in [facility] for day surgery on June 27, 2018 for AV fistula redo (balloon to open stent) for dialysis access. Had significant bruising, swelling & pain in left shoulder/arm. Used Tylenol & ice on arm. took him to [facility] a few days later. Was hospitalized on 07/02- 07/09/18 at [facility]. Had defibrillator placed by Dr Garcia on 07/06/18. Has been going to dialysis on . Had dialysis at regular facility yesterday. No new problems. AV fistula on left, defibrillator on right.<div>
<div>Daughter wonders about lifting recliner & lifting belt for at-home use. </div><div>Appt on August [address] Croft EP for defibrillator</div><div> Appt on July [address] Garcia, cardiology</div><div>Appt on October 17 at 1:30pm with Dr Katherin Abdalla endo</div><div>Requests updated referral to neuro, Dr Archuleta, regarding CVA, memory, depression.</div><div>
<div>Discharge medications from [facility] 06/28/18:
</div><div>Albuterol neb 3mL prn< /div><div>Atorvastatin 80mg qhs
</div><div>Carvedilol 3.125mg qhs (Coreg)
</div><div>Clonidine 0.1mg po prn SBP >170 (Catapres)
</div><div> Clopidogrel 75mg qd (Plavix)</div><div>Famotidine 20mg bid (Pepcid)
</div>< div>Furosemide 40mg bid prn (Lasix) -
</div><div>Haloperidol 0.5mg q6hrs prn (Haldol)</div><div>Hydralazine 50mg tid
</div><div>Insulin 7units tid with meals (Novolog)
</div><div>Insulin 20u qd at 0800 (Lantus)
</div><div> Isosorbide 30mg qd
</div><div>Lidocaine topical - as directed at dialysis
</div><div>Lorazepam 0.5mg tid prn (Ativan)
</div><div>Rivaroxaban 15mg qd (Xarelto)
</div><div>Sevelamer 800mg tid with meal (Renvela)
</div><div> Tamsulosin 0.4mg qd (Flomax).</div><div>
</div><div>Postprocedure for defibrillator given:</div><div>Doxycycline 100mg qd</div><div>Pericolace bid prn </div><div>Tylenol #3 q6hrs prn</div></div></div> Review of Systems:ROS as noted in the HPI Review of Systems Comprehensive General Adult ROS Reported By: Patient Constitutional: Constitutional: no fever Eyes: Eyes: no vision change Cardiovascular: Cardiovascular: no chest pain Respiratory: Respiratory: no cough, no wheezing, no shortness of breath Gastrointestinal: Gastrointestinal: no abdominal pain Musculoskeletal: Musculoskeletal: muscle weakness, arthralgias/joint pain, swelling in the extremities Neurologic: Neurologic: no seizures, no headaches, weakness, numbness, dizziness Psychiatric: Psych: no depression, feeling safe in a relationship, no alcohol abuse, no hallucinations Endocrine: Endocrine: fatigue Physical Exam General Adult Exam (male) Reported By: Patient Lead Custodian: Lead Custodian: present; with today Constitutional: Level of Distress: [...] for dialysis with palpable flow Musculoskeletal:: Extremities: edema Skin: Inspection and palpation: lesion; mild erythema at site of defibrillator & AV fistula on chest. Multiple scabs & bruises on extremities/chest
--- NOTE | 2018-10-19 09:15 | NUR ---
Bedside report received from Keshav DICKENS. Identiferx3. Alert oriented and appropriate, PERRLA, respirations even and unlabored to room air. Pulses x4 extremities equal and strong. Pedal pulses PT/DP left 2+ palpable left leg and Rt leg Doppler PT only Scheduled via Dr Matthews office rt leg fix approx 2wks according to pt.Cap fill brisk < 3 sec. Skin warm and dry integrity appears Dry and Intact. IV 20g to rt arm presents healthy w/o s/s of infiltration or complaint. NS infusing. Left arm with limb alert Positive thrill to upper arm fistula Pt states has Hd tomorrow.Abdomen soft and supple. pt offered toileting, denies need to urinate or defecate. No personal affects with patient. Family [place] . Pt and family verbalizes understanding of POC. No gross issues pain pallor pressure or dysrhythmia.Rt Groin sheath site intact. NO hematoma or oozing ACT check scheduled 945am. Currently w/o complaint of pain or need. Patient was introduced to Nurse and oriented to room and POC. Aware of importance to keep HOB and rt leg straight and remains NPO till sheath pull. 7565 ACT 211 Family at bedside Site remain stable No oozing or hematoma Resting w/o c/o ds/rn
--- NOTE | 2018-10-19 09:45 | NUR ---
0945 resulted act 211 seema 1hr sheath site w/o hematoma or oozing ds/rn
--- NOTE | 2018-10-19 10:35 | Operative Report ---
DATE OF PROCEDURE: 10/19/2018 SURGEON: Bentley Matthews MD PROCEDURES: 1. Directional atherectomy of the left popliteal artery. 2. Percutaneous transluminal angioplasty with drug-eluting balloon of the left popliteal artery. 3. Percutaneous transluminal angioplasty of the left peroneal artery. 4. Peripheral angiogram. INDICATION: 1. Peripheral vascular disease. 2. Claudication. COMPLICATIONS: None. ANESTHESIA: Versed, fentanyl, and lidocaine. TECHNIQUE: The patient was draped and prepped in the usual fashion. The right groin was anesthetized with lidocaine. Standard Seldinger technique was used to place a 6-Kyrgyz sheath into the right femoral artery. The sheath was exchanged for a Destination sheath. Selective injections of the vasculature in the left leg were obtained. The patient was then given 7000 units of heparin. A 0.014 Hi-Torque floppy wire was used to cross the area of 70% stenosis in the popliteal artery and 95% stenosis in the peroneal artery. The stenosis in the peroneal artery was dilated with a 3.0 x 20 mm balloon up to 8 atmospheres. Directional atherectomy was performed on the popliteal stenosis. The popliteal stenosis was then dilated with a drug-eluting balloon. There was minimal residual stenosis with no complications. RESULTS: 1. Left external iliac artery, left internal iliac artery, and left common femoral artery all had minimal disease. 2. The left superficial femoral artery was heavily calcified with no significant stenosis. 3. The patient's popliteal artery was calcified and had a 70% stenosis. 4. The patient's trifurcation was patent, but the patient had a 95% stenosis at the very origin of the posterior tibial artery and 95% stenosis in the peroneal artery and 100% occlusion of the anterior tibial artery. CONCLUSION: Successful directional atherectomy of the popliteal artery and percutaneous angioplasty of the peroneal artery. There were no complications. Bentley Matthews MD D[facility] /[id number]
--- NOTE | 2018-10-19 10:45 | NUR ---
1044 ACT 179 will Aleyda 1145 stable site to rt groin quiet w/o gross issues pain pallor pressure or dysrhythmia. ds/rn
--- NOTE | 2018-10-19 11:45 | NUR ---
1145am ACT 155 ok to remove sheath Awaiting secondary staff for removal. 12n sheath pull in progress [id number] Vs no gross issues pain ,pallor,pressure or dysrhythmia. 1250p sheath pull completed. Richard patch in place PT present. No gross issues pain pallor or pressure.No hematoma or oozing. Down time remain till 1600pm.Return 11/02 for rt leg fix. Denies c/o CPor SOB
--- NOTE | 2018-10-19 16:00 | NUR ---
1600pm down time completed rt groin sheath removal site with Richard patch in place. No hematoma or oozing. Rt Iv removed no s/s infiltration. No hematoma and Coban dressing in place. Has copies of dc papers aware of importance of f/o care/ Aleyda by MD scheduled 10/26, Preop for next leg fix (rt side) on 10/31 with 930am arrival and 11/02 6am arrival for 730am case peripheral fix Dr Matthews. No gross issues pain,pallor,pressure or dysrhythmia.Denies CP or SOB dressed and escorted to car with w/c and family tanker driver. ds/rn
== END | disposition home or self-care (01) ==
LOC: CATH LAB 06:14
PROVIDERS: ATTEND Internal Medicine Cardiovascular Disease
DX: I70.213 Atherosclerosis of native arteries of extremities with intermittent claudication, bilateral legs (principal); E11.22 Type 2 diabetes mellitus with diabetic chronic kidney disease; I13.2 Hypertensive heart and chronic kidney disease with heart failure and with stage 5 chronic kidney disease, or end stage renal disease; N18.6 End stage renal disease; I50.22 Chronic systolic (congestive) heart failure; K21.9 Gastro-esophageal reflux disease without esophagitis; E78.00 Pure hypercholesterolemia, unspecified; Z01.810 Encounter for preprocedural cardiovascular examination; Z01.818 Encounter for other preprocedural examination; Z01.812 Encounter for preprocedural laboratory examination; Z79.4 Long term (current) use of insulin; Z79.02 Long term (current) use of antithrombotics/antiplatelets; I47.2 Ventricular tachycardia; Z95.810 Presence of automatic (implantable) cardiac defibrillator; I25.2 Old myocardial infarction; Z86.73 Personal history of transient ischemic attack (TIA), and cerebral infarction without residual deficits; Z89.422 Acquired absence of other left toe(s); Z89.421 Acquired absence of other right toe(s); Z95.5 Presence of coronary angioplasty implant and graft; Z82.49 Family history of ischemic heart disease and other diseases of the circulatory system; Z87.891 Personal history of nicotine dependence
CPT/HCPCS: 36415; 37225; 37228; 71046; 75710; 80053; 85025; 85610; 85730; 93005; C1725; C1769 ×3; C1887; J1644; J2001; J2250; J3010; J7030; Q9967; 37229

== ENCOUNTER → 2018-11-02 | Day surgery (SDC) | payer MEDICARE ==
[2018-10-31 11:32] LABS: BASOPHILS # (AUTO) 0.1 (0.0-0.1); BASOPHILS % 1.4 % (0.0-1.0); EOSINOPHILS # (AUTO) 0.2 (0.0-0.4); EOSINOPHILS % 3.3 % (0.0-6.0); HEMATOCRIT 33.4 % (38.2-49.6); LYMPHOCYTES # (AUTO) 0.7 (1.0-3.2); LYMPHOCYTES % 11.9 % (18.0-39.1); MEAN CORPUSCULAR HEMOGLOBIN 32.7 pg (28-32); MEAN CORPUSCULAR HGB CONC 32.9 g/dL (31-35); MEAN CORPUSCULAR VOLUME 99.4 fL (81-99); MONOCYTES # (AUTO) 0.7 (0.2-0.8); MONOCYTES % 11.8 % (4.4-11.3); NEUTROPHILS # (AUTO) 3.9 (2.1-6.9); NEUTROPHILS % 71.2 % (38.7-80.0); PLATELET COUNT 131 x10e3/uL (140-360); RED BLOOD COUNT 3.36 x10e6/uL (4.3-5.7); RED CELL DISTRIBUTION WIDTH 16.2 % (11.7-14.4)
[2018-10-31 11:46] LABS: INR 1.07; PROTHROMBIN TIME 14.4 seconds (11.9-14.5)
[2018-10-31 11:47] LABS: PARTIAL THROMBOPLASTIN TIME 45.7 seconds (23.8-35.5)
[2018-10-31 11:53] LABS: ALBUMIN 3.5 g/dL (3.5-5.0); ALBUMIN/GLOBULIN RATIO 0.8 (0.8-2.0); ANION GAP 16.3 mmol/L (8-16); CALCIUM 9.2 mg/dL (8.4-10.2); CREATININE, SERUM 4.44 mg/dL (0.72-1.25); POTASSIUM 4.3 mmol/L (3.5-5.1)
[~2018-11-02] VITALS: Ht 175.3 cm; Wt 90.7 kg
[2018-11-02] VITALS (11 sets, daily range): BP systolic 104–136; BP diastolic 57–77
[~2018-11-02] MED LIST changes: -ATROPINE SULFATE 0.1 MG/ML 10ML SYR ONE; -HEPARIN SOD (PORCINE) 1000 UNIT/ML 30ML ONE; +HEPARIN SOD/SOD CHLORIDE 1,000 ML ONE; -NITROGLYCERIN/D5W 200 MCG/ML 250 ML ONE
--- OUTSIDE RECORDS SUMMARY | 2018-11-02 06:54 | XMS REPORT | Continuity of Care Document ---
Author Author [facility] Organization [facility] Address Unknown Phone Unavailable Care Team Providers Care Payroll And Benefits Assistant Name Role Phone ZipList Information [employer] Unavailable Unavailable Problems Problem Status Onset Date Classification Date Reported Comments Source Open wound of lower leg 10/11/2018 Diagnosis 10/11/[address] [facility] Coronary arteriosclerosis 10/11/2018 Diagnosis 10/11/[address] [facility] Peripheral vascular disease 10/11/2018 Diagnosis 10/11/[address] [facility] Hospital patient 10/11/2018 Diagnosis 10/11/[address] [facility] Amputated big toe 10/10/2018 Diagnosis 10/11/[address] [facility] Onychomycosis of toenails 10/10/2018 Diagnosis 10/11/[address] [facility] Pruritus of skin 10/10/2018 Diagnosis 10/11/[address] [facility] Amputated Big Toe 10/10/2018 Problem 10/11/[address] [facility] Deep venous thrombosis of upper extremity 09/13/2018 Diagnosis 10/11/[address] [facility] Abnormal Gait Due to Muscle Weakness 09/13/2018 Problem 10/11/[address] [facility] Abnormal gait due to muscle weakness 09/12/2018 Diagnosis 10/11/[address] [facility] Congestive heart failure 09/12/2018 Diagnosis 10/11/[address] [facility] End stage renal failure on dialysis 09/12/2018 Diagnosis 10/11/[address] [facility] Body mass index 25-29 - overweight 09/12/2018 Diagnosis 10/11/[address] [facility] Productive cough 09/12/2018 Diagnosis 10/11/[address] [facility] Type II diabetes mellitus uncontrolled 09/12/2018 Diagnosis 10/11/[address] [facility] Carpal Tunnel Syndrome 08/27/2018 Problem 10/11/[address] [facility] Diabetic neuropathy 08/09/2018 Diagnosis 08/09/[address] [facility] Stented coronary artery 08/09/2018 Diagnosis 08/09/[address] [facility] Deep Venous Thrombosis of Upper Extremity 08/09/2018 Problem 10/11/[address] [facility] Screening for malignant neoplasm of colon 08/08/2018 Diagnosis 08/09/[address] [facility] Immunization 08/08/2018 Diagnosis 08/09/[address] [facility] Screening for osteoporosis 08/08/2018 Diagnosis 08/09/[address] [facility] Essential hypertension 07/11/2018 Diagnosis 08/09/[address] [facility] History of cerebrovascular accident 07/11/2018 Diagnosis 08/09/[address] [facility] Chronic obstructive lung disease 05/23/2018 Diagnosis 06/09/[address] [facility] Angina pectoris 05/23/2018 Diagnosis 06/09/[address] [facility] Senile purpura 05/23/2018 Diagnosis 06/09/[address] [facility] Tinea cruris 05/23/2018 Diagnosis 06/09/[address] [facility] Skin lesion 05/23/2018 Diagnosis 06/09/[address] [facility] Immunization refused 05/23/2018 Diagnosis 06/09/[address] [facility] History of smoking 05/23/2018 Diagnosis 05/23/[address] [facility] Adult health examination 04/25/2018 Diagnosis 06/09/[address] [facility] Benign prostatic hyperplasia 04/25/2018 Diagnosis 06/09/[address] [facility] Incontinence of feces 04/25/2018 Diagnosis 06/09/[address] [facility] Seasonal allergic rhinitis 04/25/2018 Diagnosis 06/09/[address] [facility] Advance directive discussed with patient 04/25/2018 Diagnosis 06/09/[address] [facility] Depression screening 04/25/2018 Diagnosis 06/09/[address] [facility] End Stage Renal Failure on Dialysis 12/13/2017 Problem 10/11/[address] [facility] Acute kidney failure, unspecified 06/17/2017 09/14/2017 [facility] FALL Active 06/07/2017 [facility] CHAI, GENERALIZED WEAKNESS Active 06/07/2017 [facility] Hypoglycemic state in diabetes 05/26/2017 Diagnosis 07/09/[address] [facility] Hypoglycemic State in Diabetes 05/26/2017 Problem 10/11/2018 [facility] Dyspnea at rest 05/10/2017 Diagnosis 07/09/[address] [facility] Benign Prostatic Hyperplasia 04/13/2017 Problem 10/11/2018 [facility] Cough 04/12/2017 Diagnosis 07/09/[address] [facility] Hypertensive disorder 04/12/2017 Diagnosis 07/09/[address] [facility] Acid reflux 04/12/2017 Diagnosis 07/09/[address] [facility] Type 2 diabetes mellitus 04/12/2017 Diagnosis 07/09/[address] [facility] Chronic kidney disease 03/24/2017 Diagnosis 07/09/[address] [facility] Hypotensive episode 03/24/2017 Diagnosis 07/09/[address] [facility] Altered mental status 03/24/2017 Diagnosis 07/09/[address] [facility] History of Cerebrovascular Accident 03/21/2017 Problem 10/11/[address] [facility] Type II Diabetes Mellitus Uncontrolled 03/19/2017 Problem 10/11/[address] [facility] Diabetic Neuropathy 03/19/2017 Problem 10/11/[address] [facility] Essential Hypertension 03/19/2017 Problem 10/11/[address] [facility] Congestive Heart Failure 03/19/2017 Problem 10/11/[address] [facility] Peripheral Vascular Disease 03/19/2017 Problem 10/11/[address] [facility] Chronic Kidney Disease 03/19/2017 Problem 10/11/[address] [facility] Stented Coronary Artery 03/19/2017 Problem 10/11/[address] [facility] Cerebrovascular Accident 03/19/2017 Problem 07/09/[address] [facility] Diabetic peripheral neuropathy 03/11/2017 Diagnosis 07/09/[address] [facility] Chronic kidney disease stage 3 03/11/2017 Diagnosis 07/09/[address] [facility] Cerebrovascular accident 03/11/2017 Diagnosis 07/09/[address] [facility] Mixed hyperlipidemia due to type 2 diabetes mellitus 03/11/2017 Diagnosis 07/09/[address] [facility] At risk for falls 03/11/2017 Diagnosis 07/09/[address] [facility] STROKE-LIKE SYMPTOMS Active 02/08/2017 [facility] SLURRED SPEECH/ GAIT ABNORMALITY Active 02/08/2017 [facility] Hematuria Active 04/01/2015 Problem 07/27/2018 [facility] Renal insufficiency Active 04/01/2015 Problem 07/27/2018 [facility] UTI Active 04/01/2015 Problem 07/27/2018 [facility] 569.89 Active 10/29/2014 [facility] Type 2 diabetes [...] without complications 09/14/2017 [facility] Hyperlipidemia, unspecified 09/14/2017 [facility] Atherosclerotic heart disease of [place] coronary artery without angina pectoris 09/14/2017 [facility] Personal history of transient ischemic attack , and cerebral infarction without residual deficits 09/14/2017 [facility] Personal history of nicotine dependence 09/14/2017 [facility] director long term care use of aspirin 09/14/2017 [facility] senior care use of insulin 09/14/2017 [facility] CHF exacerbation Active Problem 07/27/2018 [facility] CKD Active Problem 07/27/2018 [facility] Chest pain Active Problem 07/27/2018 [facility] Febrile illness Active Problem 07/27/2018 [facility] Hyperkalemia Active Problem 07/27/2018 [facility] Hyperlipidemia Problem 10/11/[address] [facility] ACUTE KIDNEY FAILURE, UNSPECIFIED Active [facility] WEAKNESS Active [facility] Medications Medication Details Route Status Patient Instructions Ordering Provider Order Date Source Morphine 2 mg, 1 mL, Route: IVP, Drug form: INJ, Q4H, Dosing Weight 95.597, kg, PRN Pain Score 7-10, Start date: 06/08/17 10:32:00 APPLICATION INTEGRATION ENGINEER, Duration: 30 day, Stop date: 07/08/17 10:31:00 CDTNotes: (Same as:MORPhine Sulfate) Inactive 06/08/2017 [facility] Hydralazine 10 mg, 0.5 mL, Route: IVP, Drug form: INJ, Q4H, Dosing Weight 95.597, kg, PRN Elevated BP, Start date: 06/08/17 10:09:00 APPLICATION INTEGRATION ENGINEER, Duration: 30 day, Stop date: 07/08/17 10:08:00 CDTNotes: (Same as: Joseph line) Push over 5 minutes Inactive 06/08/2017 [facility] Saline Flush 0.9% 10 ml, Route: IVP, Drug Form: INJ, Dosing Weight 95.597, kg, Q12H, Start date: 06/07/17 21:00:00 APPLICATION INTEGRATION ENGINEER, Duration: 30 day, Stop date: 07/07/17 9:00:00 CDTNotes: (Same as: BD Posiflush) No Longer Active 06/08/2017 [facility] atorvastatin 80 mg, 2 tab, Route: PO, Drug form: TAB, Bedtime, Dosing Weight 95.597, kg, Start date: 06/07/17 21:00:00 APPLICATION INTEGRATION ENGINEER, Duration: 30 day, Stop date: 07/06/17 21:00:00 CDTNotes: (Same as: Lipitor) No Longer Active 06/08/2017 [facility] Acyclovir 750 mg, Route: IV, Drug form: PDR/INJ, [id number], Dosing Weight 95.597, kg, Start date: 06/07/17 21:00:00 APPLICATION INTEGRATION ENGINEER, Duration: 7 day, Stop date: 06/13/17 21:00:00 CSTNotes: (Same as: Zovirax) For adult patients only: Round to nearest 50 mg per Medical Staff approval MEDICATION WASTE Product Size: 500 mg Product Wasted: 250 mg No Longer Active 06/08/2017 [facility] Morphine 4 mg, 1 mL, Route: IVP, Drug form: SOLN, Q4H, Dosing Weight 95.597, kg, PRN Pain Score 7-10, Start date: 06/07/17 20:16:00 APPLICATION INTEGRATION ENGINEER, Duration: 30 day, Stop date: 07/07/17 20:15:00 CDTNotes: (Same as:MORPhine Sulfate) No Longer Active 06/08/2017 [facility] heparin 5,000 unit, 1 mL, Route: SUB-Q, Drug form: INJ, Q8H-06, Dosing Weight 95.597, kg, (For patients weighing Notes: porcine heparin No Longer Active 06/07/2017 [facility] valacyclovir 1,000 mg, 2 tab, Route: PO, Drug form: TAB, [id number], Dosing Weight 95.597, kg, Priority: NOW, Start date: 06/07/17 10:47:00 APPLICATION INTEGRATION ENGINEER, Duration: 7 day, Stop date: 06/13/17 10:47:00 CSTNotes: (Same As: Valtrex) Inactive 06/07/2017 [facility] Aspirin 300 MG Rectal Suppository 300 mg, 1 supp, Route: NH, Drug form: SUPP, ONCE, Dosing Weight 95.597, kg, Priority: NOW, Start date: 06/07/17 10:40:00 APPLICATION INTEGRATION ENGINEER, Stop date: 06/07/17 10:40:00 CSTNotes: Refrigerate. Inactive 06/07/2017 [facility] Aspirin 81 MG Enteric Coated Tablet 81 mg, 1 tab, Route: PO, Drug form: ECTAB, Q24H, Dosing Weight 95.597, kg, Start date: 06/07/17 10:00:00 APPLICATION INTEGRATION ENGINEER, Duration: 30 day, Stop date: 07/06/17 10:00:00 CDTNotes: Do not crush or chew. (Same As: Ecotrin) No Longer Active 06/07/2017 [facility] Glucagon 1 mg, Route: IM, Drug form: PDR/INJ, PRN, Dosing Weight 95.597, kg, PRN Blood Glucose Results, Start date: 06/07/17 9:48:00 APPLICATION INTEGRATION ENGINEER, Duration: 30 day, Stop date: 07/07/17 10:47:00 CDT No Longer Active 06/07/2017 [facility] Dextrose 50% Syringe 25 gm, 50 mL, Route: IVP, Drug Form: INJ, Dosing Weight 95.597, kg, PRN, PRN Blood Glucose Results, Start date: 06/07/17 9:48:00 APPLICATION INTEGRATION ENGINEER, Duration: 30 day, Stop date: 07/07/17 10:47:00 CDT No Longer Active 06/07/2017 [facility] Insulin Lispro 4 unit, 0.04 mL, Route: SUB-Q, Drug form: SOLN, Sliding Scale, Dosing Weight 95.597, kg, PRN Blood Glucose Results, Start date: 06/07/17 9:48:00 APPLICATION INTEGRATION ENGINEER, Duration: 30 day, Stop date: 07/07/17 10:47:00 CDTNo naldo: (Same as: Humalog ) Roll in palms of hands gently; Do not shake `vigorously. "Single Patient Use Only " WASTE: F/P - Black; E - [employer] Free [employer] [place] Trash Bin Stable for 28 days at room temperature. Expires in days from Date No Longer Active 06/07/2017 [facility] Saline Flush 0.9% 10 ml, Route: IVP, Drug Form: INJ, Dosing Weight 95.597, kg, PRN, PRN Line Flush, Start date: 06/07/17 9:47:00 APPLICATION INTEGRATION ENGINEER, Duration: 30 day, Stop date: 07/07/17 10:46:00 CDTNotes: (Same as: BD Posiflush) No Longer Active 06/07/2017 [facility] Saline Flush 0.9% 10 ml, Route: IVP, Drug Form: INJ, Dosing Weight 87.5, kg, PRN, PRN Line Flush, Start date: 06/07/17 7:07:00 APPLICATION INTEGRATION ENGINEER, Duration: 30 day, Stop date: 07/07/17 8:06:00 CDTNotes: (Same as: BD Posiflush) No Longer Active 06/07/2017 [facility] Sodium Chloride 0.9% IV 1,000 mL 1,000 mL, Rate: 125 ml/hr, Infuse over: 8 hr, Route: IV, Dosing Weight 87.5 kg, Total Volume: 1,000, Start date: 06/07/17 7:07:00 APPLICATION INTEGRATION ENGINEER, Duration: 30 day, Stop date: 07/07/17 7:06:00 CDT, 2.08, m2 No Longer Active 06/07/2017 [facility] Ondansetron 4 mg, 2 mL, Route: IVP, Drug form: INJ, Q6H, Dosing Weight 87.5, kg, PRN Nausea & Vomiting, Start date: 06/07/17 7:07:00 APPLICATION INTEGRATION ENGINEER, Duration: 30 day, Stop date: 07/07/17 7:06:00 CDTNotes: (Same as: Zofran) MEDICATION WASTE Product Size: 4 mg Product Wasted: ___ mg No Longer Active 06/07/2017 [facility] Acetaminophen 650 mg, 2 tab, Route: PO, Drug form: TAB, Q4H, Dosing Weight 87.5, kg, PRN Pain 1-3/Temp > 100.4 F, Start date: 06/07/17 7:07:00 APPLICATION INTEGRATION ENGINEER, Duration: 30 day, Stop date: 07/07/17 7:06:00 CDTNotes: Do not ex ceed 4 gm/day. (Same as: Tylenol) No Longer Active 06/07/2017 [facility] Sodium Chloride 0.9% IV 1,000 mL 1,000 mL, Rate: 75 ml/hr, Infuse over: 13.3 hr, Route: IV, Dosing Weight 87.5 kg, Total Volume: 1,000, Start date: 06/07/17 6:02:00 APPLICATION INTEGRATION ENGINEER, Duration: 30 day, Stop date: 07/07/17 6:01:00 CDT, 2.08, m2 Inactive 06/07/2017 [facility] Insulin Glargine (Lantus 3ML Pen) 100 Units/1 Ml Inj, 20 Bedtime Active 05/28/2017 [facility] Insulin Glargine (Lantus) 100 Units/Ml Ml, 34 Units Sub-Q Bedtime Active 05/28/2017 [facility] Amoxicillin 875 MG / Clavulanate 125 MG Oral Tablet amoxicillin 875 mg-potassium clavulanate 125 mg tablet Active 05/24/[address] [facility] Azithromycin 250 MG Oral Tablet azithromycin 250 mg tablet Active 05/10/[address] [facility] benzonatate 200 MG Oral Capsule benzonatate 200 mg capsule Take 1 capsule 3 times a day by oral route for 10 days. Active 05/10/[address] [facility] Infinity Meter Kit Infinity Meter Kit Active 05/10/[address] [facility] lancing device lancing device Active 05/10/[address] [facility] 3 ML Insulin Glargine 100 UNT/ML Pen Injector [Lantus] Lantus Solostar U-100 Insulin 100 unit/mL (3 mL) subcutaneous pen 20 units at bedtime Active 05/10/[address] [facility] True Metrix Glucose Test Strip True Metrix Glucose Test Strip use 4 times a day Active 05/10/[address] [facility] Clindamycin 150 MG Oral Capsule clindamycin HCl 150 mg capsule 2 capsules every 6 hrs Active 04/12/[address] [facility] gabapentin 300 MG Oral Capsule gabapentin 300 mg capsule Take 1 capsule twice a day by oral route. Active 04/12/[address] [facility] Lisinopril 20 MG Oral Tablet lisinopril 20 mg tablet Take 1 tablet twice a day by oral route. Active 04/12/[address] [facility] Metolazone 2.5 MG Oral Tablet metolazone 2.5 mg tablet Take 1 tablet twice a day by oral route. Active 04/12/[address] [facility] Regular Insulin, Human 100 UNT/ML Injectable Solution [Novolin R] Novolin R Regular U-100 Insulin 100 unit/mL injection solution Active 04/12/[address] [facility] Pentoxifylline 400 MG Extended Release Oral Tablet pentoxifylline ER 400 mg tablet,extended release Take 1 tablet 3 times a day by oral route. Active 04/12/[address] [facility] Microencapsulated Potassium Chloride 10 MEQ Extended Release Oral Tablet potassium chloride ER 10 mEq tablet,extended release(part/cryst) Take 1 tablet twice a day by oral route. Active 04/12/[address] [facility] Acetaminophen 300 MG / Codeine Phosphate 30 MG Oral Tablet acetaminophen 300 mg-codeine 30 mg tablet Active 03/11/[address] [facility] Cephalexin 500 MG Oral Capsule cephalexin 500 mg capsule Active 03/11/[address] [facility] Ciprofloxacin 500 MG Oral Tablet ciprofloxacin 500 mg tablet Take 1 tablet twice a day by oral route. Active 03/11/[address] [facility] Doxepin Hydrochloride 50 MG/ML Topical Cream doxepin 5 % topical cream Active 03/11/[address] [facility] gabapentin 100 MG Oral Capsule gabapentin 100 mg capsule Active 03/11/[address] [facility] gatifloxacin 5 MG/ML Ophthalmic Solution gatifloxacin 0.5 % eye drops Active 03/11/[address] [facility] Ketorolac Tromethamine 5 MG/ML Ophthalmic Solution ketorolac 0.5 % eye drops Active 03/11/[address] [facility] Levofloxacin 250 MG Oral Tablet levofloxacin 250 mg tablet Active 03/11/[address] [facility] Mupirocin 0.02 MG/MG Topical Ointment mupirocin 2 % topical ointment Active 03/11/[address] [facility] prednisolone acetate 10 MG/ML Ophthalmic Suspension prednisolone acetate 1 % eye drops,suspension Active 03/11/[address] [facility] Sulfamethoxazole 800 MG / Trimethoprim 160 MG Oral Tablet sulfamethoxazole 800 mg-trimethoprim 160 mg tablet Active 03/11/[address] [facility] tramadol hydrochloride 50 MG Oral Tablet tramadol 50 mg tablet Active 03/11/[address] [facility] TRUEplus Lancets 28 gauge TRUEplus Lancets 28 gauge Active 03/11/[address] [facility] Acetaminophen With Codeine (Tylenol With Codeine #3 Tablet) 1 Each Tablet, 300 Mg Oral Every 6 Hours as needed for Pain Active 03/04/2017 [facility] Carvedilol 6.25 Mg Tablet, 3.125 Mg Oral Bedtime Active 03/04/2017 [facility] Ferrous Sulfate 325 Mg Tablet, 325 Mg Oral Daily Active 03/04/2017 [facility] Metolazone 5 Mg Tablet, 2.5 Mg Oral Twice A Day Active 03/04/2017 [facility] Zaroxolyn , 2.5 Mg Oral Twice A Day as needed for Shortness Of Breath Active 03/04/2017 [facility] Lantus 100 units/mL 25 unit, SUB-Q, Bedtime, # 10 mL, 0 Refill(s), Pharmacy: [facility] [id number] Active 02/11/2017 [facility] pneumococcal 13-valent vaccine 0.5 mL, Route: IM, Drug Form: INJ, Daily, Start date: 02/09/17 9:00:00 CDT, Duration: 1 doses or times, Stop date: 02/09/17 9:00:00 CDTNotes: Shake well prior to use (Same as: Prevnar 13) Inactive 02/09/2017 [facility] metolazone 2.5 mg oral tablet 2.5 mg, 1 tab, Route: PO, Drug form: TAB, BID, Dosing Weight 87.5, kg, Start date: 02/09/17 9:00:00 CDT, Duration: 30 day, Stop date: 03/10/17 17:00:00 CSTNotes: (Same as: Zaroxolyn) No Longer Active 02/09/2017 [facility] lisinopril 20 mg, Route: PO, Drug form: TAB, BID, Dosing Weight 87.5, kg, Start date: 02/09/17 9:00:00 CDT, Duration: 30 day, Stop date: 03/10/17 17:00:00 APPLICATION INTEGRATION ENGINEER Inactive 02/09/2017 [facility] gabapentin 300 mg oral capsule 300 mg, 1 cap, Route: PO, Drug form: CAP, Q12H, Dosing Weight 87.5, kg, Start date: 02/09/17 9:00:00 CDT, Duration: 30 day, Stop date: 03/10/17 21:00:00 CSTNotes: (Same as: Neurontin) No Longer Active 02/09/2017 [facility] influenza virus vaccine, inactivated 0.5 mL, Route: IM, Drug Form: SUSP, Daily, Start date: 02/09/17 9:00:00 CDT, Duration: 1 doses or times, Stop date: 02/09/17 9:00:00 CDTNotes: (Same as: Fluzone Quadrivalent, Fluarix Quadrivalent) For 3 years of age and older (0.5 mL IM) Shake well before use Inactive 02/09/2017 [facility] Humalog 10 unit, 0.1 mL, Route: [...] days from Date No Longer Active 02/09/2017 [facility] NovoLOG 10 unit, Route: SUB-Q, Drug form: SOLN, TID-Before Meals, Dosing Weight 87.5, kg, Start date: 02/09/17 7:30:00 CDT, Duration: 30 day, Stop date: 03/10/17 16:30:00 APPLICATION INTEGRATION ENGINEER Inactive 02/09/2017 [facility] ciprofloxacin 500 mg, 1 tab, Route: PO, Drug form: TAB, [id number], Dosing Weight 87.5, kg, Start date: 02/09/17 1:00:00 CDT, Duration: 30 day, Stop date: 03/10/17 13:00:00 APPLICATION INTEGRATION ENGINEER, ABX Indication: Skin/Soft Tissue Infectio nNotes: May interfere w/enteral feedings - Take 1 hr before or 2 hrs after antacids, dairy pdt & minerals. On empty stomach. Inactive 02/09/2017 [facility] Lantus 100 units/mL 25 unit, 0.25 mL, Route: SUB-Q, Drug form: SOLN, Bedtime, Dosing Weight 87.5, kg, Start date: 02/09/17 0:03:00 CDT, Duration: 30 day, Stop date: 03/10/17 21:00:00 CSTNotes: (Same as: Lantus) Do not hold insulin without contacting prescriber WASTE: F/P - Black; E - [employer] Trash Bin "single patient use only" No Longer Active 02/09/2017 [facility] hydrALAZINE 50 mg oral tablet 50 mg, 1 tab, Route: PO, Drug form: TAB, Q8H, Dosing Weight 87.5, kg, Start date: 02/09/17 0:00:00 CDT, Duration: 30 day, Stop date: 03/10/17 16:00:00 APPLICATION INTEGRATION ENGINEER Inactive 02/09/2017 [facility] lisinopril 20 mg oral tablet 20 mg=1 tab, PO, BID, 0 Refill(s) No Longer Active 02/09/2017 [facility] metolazone 2.5 mg oral tablet 2.5 mg=1 tab, PO, BID, 0 Refill(s) Active 02/09/2017 [facility] furosemide 40 mg oral tablet 80 mg=2 tab, PO, QAM, 0 Refill(s) No Longer Active 02/09/2017 [facility] gabapentin 300 mg oral capsule 300 mg=1 cap, PO, BID, 0 Refill(s) No Longer Active 02/09/2017 [facility] ciprofloxacin 500 mg oral tablet 500 mg=1 tab, PO, Q12H, 0 Refill(s) No Longer Active 02/09/2017 [facility] hydrALAZINE 50 mg oral tablet 50 mg=1 tab, PO, Q8H, 0 Refill(s) No Longer Active 02/09/2017 [facility] NovoLOG 100 units/mL 10 unit, SUB-Q, TID-Before Meals, # 10 mL, 0 Refill(s) Active 02/09/2017 [facility] potassium chloride 10 mEq oral tablet, extended release 10 mEq=1 tab, PO, BID, 0 Refill(s) No Longer Active 02/09/2017 [facility] Lantus 100 units/mL 34 units, SUB-Q, Bedtime, 0 Refill(s) No Longer Active 02/09/2017 [facility] atorvastatin 80 mg oral tablet 80 mg=1 tab, PO, Daily, 0 Refill(s) Active 02/09/2017 [facility] clindamycin 150 mg, PO, Q6H, 2 capsules, 0 Refill(s) Active 02/09/2017 [facility] aspirin 81 mg tablet, chewable 81 mg=1 tab, CHEW, Daily, 0 Refill(s) Active 02/09/2017 [facility] clindamycin 300 mg, 1 cap, Route: PO, Drug form: CAP, [id number], Dosing Weight 104.545, kg, Start date: 02/08/17 21:00:00 CDT, Duration: 5 day, Stop date: 02/13/17 15:00:00 APPLICATION INTEGRATION ENGINEER, ABX Indication: Skin/Soft Tissue Inf ectionNotes: (Same As: Cleocin) No Longer Active 02/09/2017 [facility] Lipitor 80 mg, 2 tab, Route: PO, Drug form: TAB, Bedtime, Dosing Weight 104.545, kg, Start date: 02/08/17 21:00:00 CDT, Duration: 30 day, Stop date: 03/09/17 21:00:00 CSTNotes: (Same as: Lipitor) No Longer Active 02/09/2017 [facility] Saline Flush 0.9% 10 ml, Route: IVP, Drug Form: INJ, Dosing Weight 104.545, kg, Q12H, Start date: 02/08/17 21:00:00 CDT, Duration: 30 day, Stop date: 03/10/17 9:00:00 CSTNotes: (Same as: BD Posiflush) No Longer Active 02/09/2017 [facility] aspirin 81 mg tablet, enteric coated 81 mg, 1 tab, Route: PO, Drug form: ECTAB, Daily, Dosing Weight 104.545, kg, Start date: 02/08/17 21:00:00 CDT, Duration: 30 day, Stop date: 03/10/17 9:00:00 CSTNotes: Do not crush or chew. (Same As: Ecotrin) No Longer Active 02/09/2017 [facility] hydrALAZINE 10 mg, 0.5 mL, Route: IVP, Drug form: INJ, Q6H, Dosing Weight 104.545, kg, PRN Hypertension, Start date: 02/08/17 20:35:00 CDT, Duration: 30 day, Stop date: 03/10/17 20:34:00 APPLICATION INTEGRATION ENGINEER, FOR sbp > 180 MMNotes: (Same as: Apresoline) Push over 5 minutes No Longer Active 02/09/2017 [facility] insulin lispro 5 unit, 0.05 mL, [...] days from Date No Longer Active 02/09/2017 [facility] glucagon 1 mg, Route: IM, Drug form: PDR/INJ, PRN, Dosing Weight 104.545, kg, PRN Blood Glucose Results, Start date: 02/08/17 20:35:00 CDT, Duration: 30 day, Stop date: 03/10/17 19:34:00 APPLICATION INTEGRATION ENGINEER No Longer Active 02/09/2017 [facility] Dextrose 50% Syringe 25 gm, 50 mL, Route: IVP, Drug Form: INJ, Dosing Weight 104.545, kg, PRN, PRN Blood Glucose Results, Start date: 02/08/17 20:35:00 CDT, Duration: 30 day, Stop date: 03/10/17 19:34:00 APPLICATION INTEGRATION ENGINEER No Longer Active 02/09/2017 [facility] Saline Flush 0.9% 10 ml, Route: IVP, Drug Form: INJ, Dosing Weight 104.545, kg, PRN, PRN Line Flush, Start date: 02/08/17 20:26:00 CDT, Duration: 30 day, Stop date: 03/10/17 19:25:00 APPLICATION INTEGRATION ENGINEER Inactive 02/09/2017 [facility] ondansetron 4 mg, 2 mL, Route: IVP, Drug form: INJ, Q8H, Dosing Weight 104.545, kg, PRN Nausea & Vomiting, Start date: 02/08/17 20:26:00 CDT, Duration: 30 day, Stop date: 03/10/17 20:25:00 CSTNotes: (Same as: Taylor) MEDICATION WASTE Product Size: 4 mg Product Wasted: ___ mg No Longer Active 02/09/2017 [facility] acetaminophen 650 mg, 2 tab, Route: PO, Drug form: TAB, Q4H, Dosing Weight 104.545, kg, PRN Pain 1-3/Temp > 99.5 F, Start date: 02/08/17 20:26:00 CDT, Duration: 30 day, Stop date: 03/10/17 20:25:00 CSTNotes: Do not exceed 4 gm/day. (Same as: Tylenol) No Longer Active 02/09/2017 [facility] bisacodyl 10 mg, 1 supp, Route: NH, Drug form: SUPP, Daily, Dosing Weight 104.545, kg, PRN Constipation, Start date: 02/08/17 20:26:00 CDT, Duration: 30 day, Stop date: 03/10/17 20:25:00 CSTNotes: (Same As: Dulcolax, Bisco-Lax) No Longer Active 02/09/2017 [facility] Saline Flush 0.9% 10 mL, Route: IVP, Drug Form: INJ, Dosing Weight 104.545, kg, PRN, PRN Line Flush, Start date: 02/08/17 16:21:00 CDT, Duration: 30 day, Stop date: 03/10/17 15:20:00 CSTNotes: (Same as: BD Posiflush) No Longer Active 02/08/2017 [facility] Pentoxifylline 400 Mg Tablet.er, 400 Mg Oral Three Times A Day Active 09/20/2016 [facility] Cephalexin 500 Mg Capsule, 500 Mg Oral Three Times A Day Active 09/05/2016 [facility] Ciprofloxacin Hcl (Cipro) 500 Mg Tablet, 500 Mg Oral Every 12 Hours Active 09/05/2016 [facility] Clindamycin Hcl 150 Mg Capsule, 300 Mg Oral Every 8 Hours Active 09/05/2016 [facility] Sulfamethoxazole/Trimethoprim (Bactrim Ds Tablet) 1 Each Tablet, 1 Tab Oral Twice A Day Active 09/05/2016 [facility] Lisinopril (Zestril*) 20 Mg Tablet, 20 Mg Oral Twice A Day Active 02/04/2016 [facility] Acetaminophen With Codeine (Tylenol With Codeine #3 Tablet) 1 Each Tablet, 300 Mg Oral Every 4 Hours Active 09/05/2015 [facility] Famotidine 20 Mg Tab, 20 Mg Oral Daily Active 09/05/2015 [facility] Levofloxacin (Levaquin) 500 Mg Tablet, 500 Mg Oral Daily Active 09/05/2015 [facility] Meclizine Hcl 12.5 Mg Tablet, 25 Mg Oral Twice A Day Active 09/05/2015 [facility] Cholecalciferol (Vitamin D3) (Vitamin D) 5,000 Unit Tablet, 5000 Units Oral Daily Active 04/01/2015 [facility] Aspirin (Aspir 81) 81 Mg Tablet.dr Daily Active [facility] Atorvastatin Calcium 80 Mg Tablet Daily Active [facility] Carvedilol 3.125 Mg Tablet Bedtime Active [facility] Clopidogrel Bisulfate (Clopidogrel) 75 Mg Tablet Daily Active [facility] Famotidine 20 Mg Tab Twice A Day Active [facility] Furosemide 20 Mg Tablet Twice A Day Active [facility] Hydralazine Hcl 10 Mg Tablet Every 8 Hours Active [facility] Insulin Glargine (Lantus 3ML Pen) 100 Units/1 Ml Inj Bedtime Active [facility] Insulin Regular, Human (Novolin R) 100 Unit/1 Ml Vial Three Times A Day Active [facility] Isosorbide Dinitrate 20 Mg Tablet Daily Active [facility] Tamsulosin Hcl (Flomax*) 0.4 Mg Cap Daily Active [facility] Albuterol 0.83 MG/ML Inhalation Solution albuterol sulfate 2.5 mg/3 mL (0.083 %) solution for nebulization Inhale 3 mL 3 times a day by nebulization route as needed. Active [facility] atorvastatin 80 MG Oral Tablet atorvastatin 80 mg tablet TAKE 1 TABLET BY MOUTH EVERYDAY AT BEDTIME Active [facility] Azithromycin 250 MG Oral Tablet azithromycin 250 mg tablet TAKE 2 TABLETS (500 MG) BY ORAL ROUTE ONCE DAILY FOR 1 DAY THEN 1 TABLET (250 MG) BY ORAL ROUTE ONCE DAILY FOR 4 DAYS Active [facility] carvedilol 3.125 MG Oral Tablet carvedilol 3.125 mg tablet TAKE 1 TABLET BY MOUTH EVERYDAY AT BEDTIME Active [facility] clonidine clonidine as needed Active [facility] clopidogrel 75 MG Oral Tablet clopidogrel 75 mg tablet TAKE 1 TABLET BY MOUTH EVERY DAY Active [facility] Fluconazole 150 MG Oral Tablet fluconazole 150 mg tablet Take 1 tablet every day by oral route for 7 days. Active [facility] Furosemide 40 MG Oral Tablet furosemide 40 mg tablet Take 1 tablet twice a day by oral route as needed. Active [facility] Hydralazine Hydrochloride 50 MG Oral Tablet hydralazine 50 mg tablet TAKE 1 TABLET BY MOUTH EVERY 8 HOURS Active [facility] Isosorbide Dinitrate 30 MG Oral Tablet isosorbide dinitrate 30 mg tablet TAKE 1 TABLET BY MOUTH EVERY DAY Active [facility] 3 ML Insulin Glargine 100 UNT/ML Pen Injector [Lantus] Lantus Solostar U-100 Insulin 100 unit/mL (3 mL) subcutaneous pen Inject 24 units every day by subcutaneous route in the morning. Active [facility] 3 ML insulin detemir 100 UNT/ML Pen Injector [Levemir] Levemir FlexTouch U-100 Insulin 100 unit/mL (3 mL) subcutaneous pen Active [facility] Loratadine 10 MG Oral Tablet loratadine 10 mg tablet TAKE 1 TABLET BY MOUTH EVERY DAY NEEDED Active [facility] Lorazepam 2 MG Oral Tablet lorazepam 2 mg tablet Take 1 tablet every day by oral route as needed. Active [facility] medroxyprogesterone acetate 5 MG Oral Tablet medroxyprogesterone 5 mg tablet TAKE 1 TABLET BY MOUTH EVERY DAY Active [facility] Mupirocin 0.02 MG/MG Topical Ointment mupirocin 2 % topical ointment APPLY A SMALL AMOUNT TO THE AFFECTED AREA BY TOPICAL ROUTE 3 TIMES PER DAY Active [facility] Insulin, Aspart, Human 100 UNT/ML Injectable Solution [NovoLog] Novolog U-100 Insulin aspart 100 unit/mL subcutaneous solution Inject 7 units 3 times a day by subcutaneous route as needed for 30 days. Active [facility] Nystatin 507391 UNT/ML Topical Cream nystatin 100,000 unit/gram topical cream Apply 1 application twice a day by topical route for 15 days. Active [facility] Nystatin 100 UNT/MG Topical Powder nystatin 100,000 unit/gram topical powder APPLY TO THE AFFECTED AREA(S) BY TOPICAL ROUTE 2 TIMES PER DAY Active [facility] OneTouch Delica Lancets 33 gauge OneTouch Delica Lancets 33 gauge Active [facility] OneTouch Verio Mid Control solution OneTouch Verio Mid Control solution Active [facility] OneTouch Verio strips OneTouch Verio strips Active [facility] sevelamer carbonate 800 MG Oral Tablet sevelamer carbonate 800 mg tablet Take 1 tablet 3 times a day by oral route for 90 days. Active [facility] Suprep Bowel Prep Kit 17.5 gram-3.13 gram-1.6 gram oral solution Suprep Bowel Prep Kit 17.5 gram-3.13 gram-1.6 gram oral solution Active [facility] Tamsulosin hydrochloride 0.4 MG Oral Capsule tamsulosin 0.4 mg capsule TAKE 1 CAPSULE(S) EVERY DAY BY ORAL ROUTE. Active [facility] Ultra Thin Lancets 31 gauge Ultra Thin Lancets 31 gauge Take 1 each every day by miscell. route for 90 days. Active [facility] Ergocalciferol 45722 UNT Oral Capsule Vitamin D2 50,000 unit capsule Take 1 capsule every week by oral route. Active [facility] Famotidine 20 MG Oral Tablet famotidine 20 mg tablet Active [facility] Acetaminophen 325 MG / Hydrocodone Bitartrate 5 MG Oral Tablet hydrocodone 5 mg-acetaminophen 325 mg tablet Active [facility] Lorazepam 0.5 MG Oral Tablet lorazepam 0.5 mg tablet Take 2 tablets 3 times a day by oral route. Active [facility] Nystatin 100 UNT/MG Topical Powder [Nystop] Nystop 100,000 unit/gram topical powder APPLY TO THE AFFECTED AREA(S) BY TOPICAL ROUTE 2 TIMES PER DAY Active [facility] rivaroxaban 15 MG Oral Tablet [Xarelto] Xarelto 15 mg tablet Take 1 tablet every day by oral route for 90 days. Active [facility] Acyclovir 800 MG Oral Tablet acyclovir 800 mg tablet Active [facility] Aspirin 81 MG Delayed Release Oral Tablet aspirin 81 mg tablet,delayed release Take 1 tablet every day by oral route. Active [facility] Ciprofloxacin 250 MG Oral Tablet ciprofloxacin 250 mg tablet Active [facility] True Metrix Glucose Test Strip True Metrix Glucose Test Strip Take 1 strip every day by miscell. route. Active [facility] Hydroxyzine Hydrochloride 25 MG Oral Tablet hydroxyzine HCl 25 mg tablet Take 1 tablet twice a day by oral route. Do not use benadryl, loratadine or lorazepam while using this med Active [facility] Allergies, Adverse Reactions, Alerts No Known Medication Allergies Immunizations Immunization Date Given Site Status Last Updated Comments Source pneumococcal polysaccharide PPV23 08/08/2018 [facility] pneumococcal 13-valent vaccine 02/09/2017 Left deltoid completed [facility] influenza virus vaccine, inactivated 02/09/2017 Right deltoid completed [facility] pneumococcal 13-valent vaccine 02/09/2017 Left deltoid completed [facility] pneumococcal conjugate PCV 13 02/09/2017 [facility] influenza, unspecified formulation 02/09/2017 [facility] Tdap 04/11/2015 [facility] Results Order Name Results Value Reference Range Date Interpretation Comments Source Alkaline phosphatase isoenzyme [Units/volume] in Serum or Plasma alkaline phosphatase 354 40 - 115 09/19/2018 [facility] Alkaline phosphatase isoenzyme [Units/volume] in Serum or Plasma intestinal isoenzymes 19 1 - 24 09/19/[address] [facility] Alkaline phosphatase isoenzyme [Units/volume] in Serum or Plasma bone isoenzymes 22 28 - 66 09/19/2018 [facility] Alkaline phosphatase isoenzyme [Units/volume] in Serum or Plasma liver isoenzymes 59 25 - 69 09/19/[address] [facility] Alkaline phosphatase isoenzyme [Units/volume] in Serum or Plasma placental isoenzymes 0 09/19/[address] [facility] Comprehensive metabolic 1999 panel - Serum or Plasma ALT 17 0 - 55 09/13/[address] [facility] Comprehensive metabolic 1999 panel - Serum or Plasma AST 22 5 - 34 09/13/[address] [facility] Comprehensive metabolic 1999 panel - Serum or Plasma BUN 41.4 8.4 - 25.0 09/13/2018 [facility] metabolic 1999 panel - Serum or Plasma alk phos 382 40 - 150 09/13/2018 [facility] metabolic 1999 panel - Serum or Plasma glucose 256 70 - 99 09/13/2018 [facility] metabolic 1999 panel - Serum or Plasma albumin 3.2 3.4 - 5.1 09/13/2018 [facility] Comprehensive metabolic 1999 panel - Serum or Plasma creatinine 4.39 0.72 - 1.25 09/13/2018 critical [facility] metabolic 1999 panel - Serum or Plasma eGFR non- 13 09/13/[address] [facility] Comprehensive metabolic 1999 panel - Serum or Plasma total bilirubin 1.7 0.2 - 1.2 09/13/[address] [facility] Comprehensive metabolic 1999 panel - Serum or Plasma eGFR - 16 09/13/[address] [facility] Comprehensive metabolic 1999 panel - Serum or Plasma sodium 137 135 - 145 09/13/[address] [facility] Comprehensive metabolic 1999 panel - Serum or Plasma potassium 4.4 3.5 - 5.1 09/13/[address] [facility] Comprehensive metabolic 1999 panel - Serum or Plasma chloride 96 98 - 110 09/13/2018 low [facility] metabolic 1999 panel - Serum or Plasma total protein 7.2 6.1 - 8.2 09/13/[address] [facility] Comprehensive metabolic 1999 panel - Serum or Plasma calcium 8.8 9.0 - 10.2 09/13/2018 [facility] metabolic 1999 panel - Serum or Plasma CO2 32.2 20.0 - 32.0 09/13/2018 [facility] metabolic 1999 panel - Serum or Plasma anion gap 9 09/13/[address] [facility] Creatine kinase [Enzymatic activity/volume] in Serum or Plasma creatine kinase (CK) 60 30 - 200 09/13/[address] [facility] Hemoglobin A1c/Hemoglobin.total in Blood Hemoglobin A1c/Hemoglobin.total in Blood 8.3 1.0 - 5.7 09/13/2018 [facility] Hemoglobin A1c/Hemoglobin.total in Blood average blood glucose 192 09/13/[address] [facility] Lipid 1995 panel - Serum or Plasma HDL 40 40 - 0 09/13/[address] [facility] Lipid 1995 panel - Serum or Plasma triglyceride 82 0 - 150 09/13/[address] [facility] Lipid 1995 panel - Serum or Plasma VLDL (calculated) 16 09/13/[address] [facility] Lipid 1996 panel - Serum or Plasma cholesterol/HDL ratio 4.1 09/13/[address] [facility] Lipid 1995 panel - Serum or Plasma non-HDL cholesterol (calculated) 124 0 - 160 09/13/[address] [facility] Lipid 1995 panel - Serum or Plasma cholesterol 164 0 - 200 09/13/[address] [facility] Lipid 1995 panel - Serum or Plasma Cholesterol in LDL [Mass/volume] in Serum or Plasma 108 0 - 130 09/13/[address] [facility] Thyrotropin [Units/volume] in Serum or Plasma TSH 2.514 0.350 - 4.940 09/13/[address] [facility] Hemoglobin A1c/Hemoglobin.total in Blood A1C w/EAG 12.6 1.0 - 5.7 03/29/2018 [facility] Hemoglobin A1c/Hemoglobin.total in Blood average blood glucose 315 03/29/[address] [facility] Comprehensive metabolic 1999 panel - Serum or Plasma ALT 16 0 - 55 03/29/[address] [facility] Comprehensive metabolic 1999 panel - Serum or Plasma AST 21 5 - 34 03/29/[address] [facility] Comprehensive metabolic 1999 panel - Serum or Plasma BUN 37.9 8.4 - 25.7 03/29/2018 [facility] metabolic 1999 panel - Serum or Plasma alk phos 371 40 - 150 03/29/2018 [facility] metabolic 1999 panel - Serum or Plasma glucose 306 70 - 99 03/29/2018 [facility] metabolic 1999 panel - Serum or Plasma albumin 3.1 3.5 - 5.0 03/29/2018 [facility] Comprehensive metabolic 1999 panel - Serum or Plasma creatinine 3.72 0.72 - 1.25 03/29/2018 [facility] metabolic 1999 panel - Serum or Plasma eGFR non- 16 03/29/[address] [facility] Comprehensive metabolic 1999 panel - Serum or Plasma total bilirubin 1.2 0.2 - 1.2 03/29/[address] [facility] Comprehensive metabolic 1999 panel - Serum or Plasma eGFR - 20 03/29/[address] [facility] Comprehensive metabolic 1999 panel - Serum or Plasma sodium 135 136 - 145 03/29/2018 [facility] Comprehensive metabolic 1999 panel - Serum or Plasma potassium 4.8 3.5 - 5.1 03/29/[address] [facility] Comprehensive metabolic 1999 panel - Serum or Plasma chloride 95 98 - 107 03/29/2018 [facility] Comprehensive metabolic 1999 panel - Serum or Plasma total protein 6.8 6.4 - 8.3 03/29/[address] [facility] Comprehensive metabolic 1999 panel - Serum or Plasma calcium 8.5 8.8 - 10.0 03/29/2018 [facility] Comprehensive metabolic 1999 panel - Serum or Plasma CO2 32.9 23.0 - 31.0 03/29/2018 [facility] metabolic 1999 panel - Serum or Plasma anion gap 7 03/29/[address] [facility] PSA, total 0.49 0.00 - 4.00 03/29/[address] [facility] CHEM PANEL Magnesium Lvl 2.4 1.8 [...] should be multiplied by the estimated BMI. [facility] CHEM PANEL AST 15 0 - 37 06/08/2017 [facility] CHEM PANEL Alk Phos 161 39 - 136 06/08/2017 [facility] CHEM PANEL ALT 17 0 - 65 06/08/2017 [facility] CHEM PANEL Albumin Lvl 2.4 3.5 - 5.0 06/08/2017 [facility] CHEM PANEL Bili Total 0.6 0.2 - 1.3 06/08/2017 [facility] CHEM PANEL Calcium Lvl 7.9 8.5 - 10.5 06/08/2017 [facility] CHEM PANEL CO2 23 24 - 32 06/08/2017 [facility] CHEM PANEL Total Protein 5.9 6.4 - 8.4 06/08/2017 [facility] CHEM PANEL Creatinine Lvl 3.00 0.50 - 1.40 06/08/2017 [facility] CHEM PANEL BUN 59 7 - 22 [...] PANEL AGAP 14.6 10.0 - 20.0 06/08/2017 [facility] CHEM PANEL A/G Ratio 0.7 0.7 - 1.6 06/08/2017 [facility] HEMATOLOGY Lymphocytes 19.4 20.0 - 40.0 06/08/2017 [facility] HEMATOLOGY Monocytes 10.7 2.0 - 12.0 06/08/2017 [facility] HEMATOLOGY Segs 65.2 45.0 - 75.0 06/08/2017 [facility] HEMATOLOGY Eosinophils # 0.2 0.0 - 0.5 06/08/2017 [facility] HEMATOLOGY Monocytes # 0.6 0.0 - 0.8 06/08/2017 [facility] Lymphocytes # 1.1 1.0 - 5.5 06/08/2017 [facility] HEMATOLOGY Basophils 0.8 0.0 - 1.0 06/08/2017 [facility] Eosinophils 3.9 0.0 - 4.0 06/08/2017 [facility] Segs-Bands # 3.6 1.5 - 8.1 06/08/2017 [facility] MCV 95.2 80.0 - 94.0 06/08/2017 [facility] Hct 26.6 42.0 - 54.0 06/08/2017 [facility] MPV 9.2 7.4 - 10.4 06/08/2017 [facility] Hgb 8.8 14.0 - 18.0 06/08/2017 [facility] MCH 31.5 27.0 - 31.0 06/08/2017 [facility] RBC 2.80 4.70 - 6.10 06/08/2017 [facility] MCHC 33.1 32.0 - 36.0 06/08/2017 [facility] Platelet 151 133 - 450 06/08/2017 [facility] RDW 16.7 11.5 - 14.5 06/08/2017 [facility] WBC 5.6 3.7 - 10.4 06/08/2017 [facility] URINE AND STOOL UA Color Ltyellow 06/07/2017 [facility] URINE AND STOOL UA Urobilinogen <=1.0 mg/dL 0.1 - 1.0 06/07/2017 [facility] URINE AND STOOL UA Sq Epi None Seen 06/07/2017 [facility] URINE AND STOOL UA RBC 6 0 - 2 06/07/2017 [facility] URINE AND STOOL UA Mucus Few [...] UA Ketones Negative mg/dL Negative mg/dL 06/07/2017 [facility] URINE AND STOOL UA RBC 3 0 - 2 06/07/2017 [facility] URINE AND STOOL UA Amorph Columba Occasional /HPF None Seen /HPF 06/07/2017 [facility] URINE AND STOOL UA Mucus Few /LPF None Seen /LPF 06/07/2017 [facility] URINE AND STOOL UA Bacteria Few /HPF None Seen /HPF 06/07/2017 [facility] URINE AND STOOL UA WBC 2 0 - 5 06/07/2017 [facility] URINE AND STOOL UA Color Ltyellow 06/07/2017 [facility] URINE AND STOOL UA Sq Epi None Seen 06/07/2017 [facility] URINE AND STOOL UA Turbidity Slight *ABN* (06/07/17 3:27 AM) Clear 06/07/2017 [facility] CHEM PANEL Ammonia 37.0 <=45.0 uMol/L 06/07/2017 [facility] CHEM PANEL Lactic Acid Lvl 0.8 0.5 - 2.2 06/07/2017 [facility] CARDIAC ENZYMES CK MB Index 3.2 0.0 - 2.5 06/07/2017 [facility] CARDIAC ENZYMES Troponin-I 0.03 0.00 - 0.40 06/07/2017 [facility] CARDIAC ENZYMES Total CK 112 12 - 191 06/07/2017 [facility] CARDIAC ENZYMES CK MB 3.6 0.5 - 3.6 06/07/2017 [facility] CHEM PANEL Phosphorus 3.3 2.5 - 4.5 06/07/2017 [facility] CHEM PANEL Magnesium Lvl 2.4 1.8 - 2.4 06/07/2017 [facility] ELECTROLYTES AGAP 15.6 10.0 - 20.0 06/07/2017 [facility] ELECTROLYTES Bili Total 0.6 0.2 - 1.3 06/07/2017 [facility] ELECTROLYTES Alk Phos 186 39 - 136 06/07/2017 [facility] ELECTROLYTES B/C Ratio 20 6 - 25 06/07/2017 [facility] ELECTROLYTES A/G Ratio 0.6 0.7 - 1.6 06/07/2017 [facility] ELECTROLYTES Potassium Lvl 4.6 3.5 - 5.1 06/07/2017 [facility] ELECTROLYTES Sodium Lvl 140 135 - 145 06/07/2017 [facility] ELECTROLYTES Globulin 4.4 2.7 - 4.2 06/07/2017 [facility] ELECTROLYTES AST 19 0 - 37 06/07/2017 [facility] ELECTROLYTES Chloride Lvl 107 95 - 109 06/07/2017 [facility] ELECTROLYTES Calcium Lvl 7.8 8.5 - 10.5 06/07/2017 [facility] ELECTROLYTES CO2 22 24 - 32 06/07/2017 [facility] ELECTROLYTES ALT 22 0 - 65 06/07/2017 [facility] ELECTROLYTES Albumin Lvl 2.5 3.5 - 5.0 06/07/2017 [facility] ELECTROLYTES Total Protein 6.9 6.4 - 8.4 06/07/2017 [facility] ELECTROLYTES eGFR 19 06/07/2017 Result Comment: The [...] should be multiplied by the estimated BMI. [facility] ELECTROLYTES Creatinine Lvl 3.14 0.50 - 1.40 06/07/2017 [facility] ELECTROLYTES BUN 63 7 - 22 06/07/2017 [facility] ELECTROLYTES Glucose Lvl 246 70 - 99 06/07/2017 [facility] HEMATOLOGY Segs-Bands # 7.8 1.5 - 8.1 06/07/2017 [facility] HEMATOLOGY Monocytes # 0.7 0.0 - 0.8 06/07/2017 [facility] HEMATOLOGY Lymphocytes 8.0 20.0 - 40.0 06/07/2017 [facility] HEMATOLOGY Lymphocytes # 0.7 1.0 - 5.5 06/07/2017 [facility] HEMATOLOGY Monocytes 7.3 2.0 - 12.0 06/07/2017 [facility] HEMATOLOGY Eosinophils 0.5 0.0 - 4.0 06/07/2017 [facility] Basophils 0.5 0.0 - 1.0 06/07/2017 [facility] HEMATOLOGY Segs 83.7 45.0 - 75.0 06/07/2017 [facility] MPV 9.0 7.4 - 10.4 06/07/2017 [facility] MCH 31.0 27.0 - 31.0 06/07/2017 [facility] HEMATOLOGY Hct 28.5 42.0 - 54.0 06/07/2017 [facility] HEMATOLOGY MCV 96.4 80.0 - 94.0 06/07/2017 [facility] RBC 2.96 4.70 - 6.10 06/07/2017 [facility] HEMATOLOGY Hgb 9.2 14.0 - 18.0 06/07/2017 [facility] HEMATOLOGY WBC 9.3 3.7 - 10.4 06/07/2017 [facility] HEMATOLOGY RDW 16.3 11.5 - 14.5 06/07/2017 [facility] HEMATOLOGY Platelet 137 133 - 450 06/07/2017 [facility] MCHC 32.2 32.0 - 36.0 06/07/2017 [facility] HEMATOLOGY INR 1.19 0.85 - 1.17 06/07/2017 [facility] PT 15.2 12.0 - 14.7 06/07/2017 [facility] PTT 47.7 22.9 - 35.8 06/07/2017 [facility] 25-Hydroxyvitamin D [Mass/volume] in Serum or Plasma vitamin D,25-oh,total,ia 14 30 - 100 03/15/2017 [facility] Comprehensive metabolic 1999 panel - Serum or Plasma glucose 512 65 - 99 03/13/2017 [facility] Comprehensive metabolic 1999 panel - Serum or Plasma urea nitrogen (BUN) 53 7 - 25 03/13/2017 [facility] Comprehensive metabolic 1999 panel - Serum or Plasma creatinine 2.38 0.70 - 1.25 03/13/2017 [facility] Comprehensive metabolic 1999 panel - Serum or Plasma eGFR non-afr. [place] 27 > or=60 03/13/2017 [facility] Comprehensive metabolic 1999 panel - Serum or Plasma eGFR 31 > or=60 03/13/2017 [facility] Comprehensive metabolic 1999 panel - Serum or Plasma BUN/creatinine ratio 22 6 - 22 03/13/2017 [facility] Comprehensive metabolic 1999 panel - Serum or Plasma sodium 131 135 - 146 03/13/2017 [facility] Comprehensive metabolic 1999 panel - Serum or Plasma potassium 4.8 3.5 - 5.3 03/13/2017 [facility] Comprehensive metabolic 1999 panel - Serum or Plasma chloride 95 98 - 110 03/13/2017 [facility] Comprehensive metabolic 1999 panel - Serum or Plasma carbon dioxide 26 20 - 31 03/13/2017 [facility] Comprehensive metabolic 1999 panel - Serum or Plasma calcium 8.9 8.6 - 10.3 03/13/2017 [facility] Comprehensive metabolic 1999 panel - Serum or Plasma protein, total 6.6 6.1 - 8.1 03/13/2017 [facility] Comprehensive metabolic 1999 panel - Serum or Plasma albumin 3.2 3.6 - 5.1 03/13/2017 [facility] Comprehensive metabolic 1999 panel - Serum or Plasma globulin 3.4 1.9 - 3.7 03/13/2017 [facility] Comprehensive metabolic 1999 panel - Serum or Plasma albumin/globulin ratio 0.9 1.0 - 2.5 03/13/2017 [facility] Comprehensive metabolic 1999 panel - Serum or Plasma bilirubin, total 0.5 0.2 - 1.2 03/13/2017 [facility] Comprehensive metabolic 1999 panel - Serum or Plasma alkaline phosphatase 146 40 - 115 03/13/2017 [facility] Comprehensive metabolic 1999 panel - Serum or Plasma AST 11 10 - 35 03/13/2017 [facility] Comprehensive metabolic 1999 panel - Serum or Plasma ALT 9 9 - 46 03/13/2017 [facility] Lipid 1995 panel - Serum or Plasma cholesterol, total 268 <200 03/13/2017 [facility] Lipid 1995 panel - Serum or Plasma HDL cholesterol 50 >40 03/13/2017 [facility] Lipid 1995 panel - Serum or Plasma triglycerides 238 <150 03/13/2017 [facility] Lipid 1995 panel - Serum or Plasma LDL-cholesterol 178 03/13/2017 [facility] Lipid 1995 panel - Serum or Plasma chol/HDLC ratio 5.4 <5.0 03/13/2017 [facility] Lipid 1995 panel - Serum or Plasma non HDL cholesterol 218 <130 03/13/2017 [facility] Magnesium [Mass/volume] in Serum or Plasma magnesium 2.2 1.5 - 2.5 03/13/2017 [facility] Phosphate [Mass/volume] in Serum or Plasma phosphate ( phosphorus) 4.6 2.1 - 4.3 03/13/2017 [facility] Thyrotropin [Units/volume] in Serum or Plasma TSH 1.83 0.40 - 4.50 03/13/2017 [facility] Hemoglobin A1c/Hemoglobin.total in Blood hemoglobin A1C >14.0 <5.7 03/13/2017 [facility] Erythrocyte sedimentation rate by Westergren method sed rate by modified westergren 92 < or=20 03/12/2017 [facility] CBC W Auto Differential panel - Blood white blood cell count 7.5 3.8 - 10.8 03/12/2017 [facility] CBC W Auto Differential panel - Blood red blood cell count 4.35 4.20 - 5.80 03/12/2017 [facility] CBC W Auto Differential panel - Blood hemoglobin 12.9 13.2 - 17.1 03/12/2017 [facility] CBC W Auto Differential panel - Blood hematocrit 39.9 38.5 - 50.0 03/12/2017 [facility] CBC W Auto Differential panel - Blood MCV 91.7 80.0 - 100.0 03/12/2017 [facility] CBC W Auto Differential panel - Blood MCH 29.7 27.0 - 33.0 03/12/2017 [facility] CBC W Auto Differential panel - Blood MCHC 32.3 32.0 - 36.0 03/12/2017 [facility] CBC W Auto Differential panel - Blood RDW 12.2 11.0 - 15.0 03/12/2017 [facility] CBC W Auto Differential panel - Blood platelet count 281 140 - 400 03/12/2017 [facility] CBC W Auto Differential panel - Blood MPV 11.0 7.5 - 12.5 03/12/2017 [facility] CBC W Auto Differential panel - Blood absolute neutrophils 5730 1500 - 7800 03/12/2017 [facility] CBC W Auto Differential panel - Blood absolute lymphocytes 1013 850 - 3900 03/12/2017 [facility] CBC W Auto Differential panel - Blood absolute monocytes 578 200 - 950 03/12/2017 [facility] CBC W Auto Differential panel - Blood absolute eosinophils 98 15 - 500 03/12/2017 [facility] CBC W Auto Differential panel - Blood absolute basophils 83 0 - 200 03/12/2017 [facility] CBC W Auto Differential panel - Blood neutrophils 76.4 03/12/2017 [facility] CBC W Auto Differential panel - Blood lymphocytes 13.5 03/12/2017 [facility] CBC W Auto Differential panel - Blood monocytes 7.7 03/12/2017 [facility] CBC W Auto Differential panel - Blood eosinophils 1.3 03/12/[address] [facility] CBC W Auto Differential panel - Blood basophils 1.1 03/12/[address] [facility] CHEM PANEL Calcium Lvl 7.6 8.5 - 10.5 02/10/2017 [facility] CHEM PANEL CO2 28 24 - 32 02/10/2017 [facility] CHEM PANEL AGAP 10.5 10.0 - 20.0 02/10/2017 [facility] CHEM PANEL eGFR 30 02/10/2017 Result Comment: [...] should be multiplied by the estimated BMI. [facility] CHEM PANEL Potassium Lvl 3.5 3.5 - 5.1 02/10/2017 [facility] CHEM PANEL Chloride Lvl 106 95 - 109 02/10/2017 [facility] CHEM PANEL Sodium Lvl 141 135 - 145 02/10/2017 [facility] CHEM PANEL Creatinine Lvl 2.20 0.50 - 1.40 02/10/2017 [facility] CHEM PANEL BUN 38 7 - 22 02/10/2017 [facility] CHEM PANEL Glucose Lvl 85 70 - 99 02/10/2017 [facility] HEMATOLOGY MPV 8.0 7.4 - 10.4 02/10/2017 [facility] HEMATOLOGY Platelet 224 133 - 450 02/10/2017 [facility] HEMATOLOGY RDW 13.6 11.5 - 14.5 02/10/2017 [facility] HEMATOLOGY MCV 93.3 80.0 - 94.0 02/10/2017 [facility] HEMATOLOGY Hct 32.3 42.0 - 54.0 02/10/2017 [facility] HEMATOLOGY MCHC 34.0 32.0 - 36.0 02/10/2017 [...] HEMATOLOGY Segs 62.8 45.0 - 75.0 02/10/2017 [facility] CHEM PANEL Bili Total 0.6 0.2 - 1.3 02/09/2017 [facility] CHEM PANEL Alk Phos 121 39 - 136 02/09/2017 [facility] CHEM PANEL Calcium Lvl 8.0 8.5 - [...] Creatinine Lvl 2.33 0.50 - 1.40 02/09/2017 [facility] CHEM PANEL Sodium Lvl 140 135 - 145 02/09/2017 [facility] CHEM PANEL BUN 32 7 - 22 02/09/2017 [facility] CHEM PANEL AGAP 12.8 10.0 - 20.0 02/09/2017 [facility] CHEM PANEL Chloride Lvl 104 95 - 109 02/09/2017 [facility] CHEM PANEL CO2 27 24 - 32 02/09/2017 [facility] CHEM PANEL Glucose Lvl 262 70 - 99 02/09/2017 [facility] CHEM PANEL eGFR 28 02/09/2017 Result Comment: [...] should be multiplied by the estimated BMI. [facility] CARDIAC ENZYMES CK MB Index 3.8 0.0 - 2.5 02/08/2017 [facility] CARDIAC ENZYMES Troponin-I 0.05 0.00 - 0.40 02/08/2017 [facility] CARDIAC ENZYMES CK MB 3.1 0.5 - 3.6 02/08/2017 [facility] CARDIAC ENZYMES Total CK 81 12 - 191 02/08/2017 [facility] ELECTROLYTES AGAP 9.3 10.0 - 20.0 02/08/2017 [facility] ELECTROLYTES eGFR 26 02/08/2017 Result Comment: The [...] should be multiplied by the estimated BMI. [facility] ELECTROLYTES CO2 29 24 - 32 02/08/2017 [facility] ELECTROLYTES Chloride Lvl 105 95 - 109 02/08/2017 [facility] ELECTROLYTES Calcium Lvl 8.2 8.5 - 10.5 02/08/2017 [facility] ELECTROLYTES Glucose Lvl 78 70 - 99 02/08/2017 [facility] ELECTROLYTES BUN 29 7 - 22 02/08/2017 [facility] ELECTROLYTES Creatinine Lvl 2.50 0.50 - 1.40 02/08/2017 [facility] ELECTROLYTES Sodium Lvl 140 135 - 145 02/08/2017 [facility] ELECTROLYTES Potassium Lvl 3.3 3.5 - 5.1 02/08/2017 [facility] HEMATOLOGY Basophils 0.6 0.0 - 1.0 02/08/2017 [facility] HEMATOLOGY Eosinophils 0.2 0.0 - 4.0 02/08/2017 [facility] HEMATOLOGY Lymphocytes # 0.7 1.0 - 5.5 02/08/2017 [facility] HEMATOLOGY Segs-Bands # 8.2 1.5 - 8.1 02/08/2017 [facility] HEMATOLOGY Basophils # 0.1 0.0 - 0.2 02/08/2017 [facility] HEMATOLOGY Monocytes # 0.5 0.0 - 0.8 02/08/2017 [facility] HEMATOLOGY Lymphocytes 7.0 20.0 - 40.0 02/08/2017 [facility] HEMATOLOGY Segs 86.6 45.0 - 75.0 02/08/2017 [facility] HEMATOLOGY Monocytes 5.6 2.0 - 12.0 02/08/2017 [facility] HEMATOLOGY PTT 37.1 22.9 - 35.8 02/08/2017 [facility] HEMATOLOGY PT 13.3 12.0 - 14.7 02/08/2017 [facility] HEMATOLOGY INR 1.01 0.85 - 1.17 02/08/2017 [facility] HEMATOLOGY MCHC 33.2 32.0 - 36.0 02/08/2017 [facility] HEMATOLOGY RBC 3.83 4.70 - 6.10 02/08/2017 [facility] HEMATOLOGY WBC 9.4 3.7 - 10.4 02/08/2017 [facility] Hgb 11.9 14.0 - 18.0 02/08/2017 [facility] Platelet 251 133 - 450 02/08/2017 [facility] RDW 13.6 11.5 - 14.5 02/08/2017 [facility] MPV 8.4 7.4 - 10.4 02/08/2017 [facility] MCV 93.7 80.0 - 94.0 02/08/2017 [facility] Hct 35.9 42.0 - 54.0 02/08/2017 [facility] MCH 31.1 27.0 - 31.0 02/08/2017 [facility] LIPIDS Chol 303 <=199 mg/dL 02/08/2017 [facility] LIPIDS HDL 56 >=61 mg/dL 02/08/2017 [facility] LIPIDS VLDL 27 02/08/2017 [facility] LIPIDS LDL (Calculated) 220 <=99 mg/dL 02/08/2017 [facility] LIPIDS Trig 133 <=149 mg/dL 02/08/2017 [facility] LIPIDS CHD Risk 5.41 4.00 - 7.30 02/08/2017 [facility] SPECIAL CHEMISTRY Hgb A1C 12.9 <=5.6 % 02/08/2017 [facility] Pathology Reports No Data Provided for This [...] speech pathology report for further details. SL: [id number] 06/08/2017 [facility] Brain wo contrast CT Clinical Indication: Head [...] chronic microvascular ischemic changes. SL: KPATEL-M 06/07/2017 [facility] Spine cervical wo contrast CT Clinical Indication: [...] acute fractures or subluxations. SL: KPATEL-M 06/07/2017 [facility] Pelvis AP DX Clinical Indication: Status post [...] within the visualized spine. SL: UMMTEL-M 06/07/2017 [facility] Chest 1view DX EXAM: Chest x-ray one [...] evidence of pulmonary edema. SL: UKJOHN-Emilie 06/07/2017 [facility] Retroperitoneal Complete US Clinical Indication: - CHAI, [...] 1. Unremarkable renal U/S SL: SROSENBLUM-PC 02/09/2017 [facility] Esophagus BA swallow function video DX Patient Name: EDWIGE HORVATH : 1950; Age: 66 years Male MR: [id number] Study: Esophagus BA swallow function video DX [...] penetration with deep penetration on partial volumes. [place] consistency barium: Flash penetration. Pudding coated barium: No aspiration or any significant laryngeal penetration. Barium with cracker preparation: No aspiration or any significant laryngeal penetration. SL: [id number] 02/09/2017 [facility] contrast MRI Clinical Indication: Slurred speech [...] disease changes/small vessel disease. SL: KPATEL-M 02/09/2017 [facility] contrast MRA Clinical Indication: Patient complained of slurred speech and unsteady gait since this morning. Stroke Comparison: CT head 02/08/2017. Technique: Magnetic resonance angiography of the [place] was performed without contrast. 3D [...] hypoplasia or severe stenosis. SL: KPANESS 02/09/2017 [facility] Neck wo contrast MRA Clinical Indication: Slurred [...] or left vertebral arteries. SL: KPANESS 02/09/2017 [facility] Brain contrast CT Study: Brain wo contrast [...] skull is intact. Mild left frontal and [id number] bilateral ethmoid air cell opacification is present. [...] would be recommended for further assessment. SL: [id number] 02/08/2017 [facility] Brain wo contrast CT I have been advised from the scanning technologist from [facility] that the incorrect name was applied to this examination and should be disregarded. A report will be faxed to the [facility] Emergency Department. Clinical Indication: ct oqw039.80 - right sided drift, slurred speech, woke [...] hemorrhage. Report will be faxed to the [facility] Emergency Department following the dictation at 5:23 PM SL: [id number] 02/08/2017 [facility] Chest 1view DX Chest 1view DX 66 [...] of acute cardiopulmonary disease. SL: SSMILEY-MEGA 02/08/2017 [facility] Consultation Notes No Data Provided for This Section Discharge Summaries No Data Provided for This Section History and Physicals No Data Provided for This Section Vital Signs Vital Sign Value Date Comments Source Diastolic (mm Hg) 50 10/10/[address] [facility] Height 69 10/10/[address] [facility] Systolic (mm Hg) 110 10/10/[address] [facility] Weight 188 10/10/[address] [facility] Diastolic (mm Hg) 68 09/12/2018 [facility] Diastolic (mm Hg) 91 06/09/2017 [facility] Temperature Oral (F) 98.3 F 06/09/2017 [facility] Systolic (mm Hg) 173 06/08/2017 [facility] Diastolic (mm Hg) 82 06/08/2017 [facility] Heart Rate 60 06/08/2017 [facility] Respitory Rate 16 06/08/2017 [facility] Temperature Oral (F) 98.1 F 06/08/2017 [facility] Heart Rate 60 06/08/2017 [facility] Respitory Rate 16 06/08/2017 [facility] Systolic (mm Hg) 173 06/08/2017 [facility] Diastolic (mm Hg) 82 06/08/2017 [facility] Temperature Oral (F) 98.1 F 06/08/2017 [facility] [...] Family Practice Systolic (mm Hg) 153 02/11/2017 [facility] Diastolic (mm Hg) 77 02/11/2017 [facility] Temperature Oral (F) 98.0 F 02/11/2017 [facility] Respitory Rate 16 02/11/2017 [facility] Heart Rate 60 02/11/2017 [facility] Respitory Rate 16 02/11/2017 [facility] Systolic (mm Hg) 157 02/11/2017 [facility] Diastolic (mm Hg) 80 02/11/2017 [facility] Heart Rate 57 02/11/2017 [facility] Temperature Oral (F) 98.1 F 02/11/2017 [facility] Heart Rate 58 02/11/2017 [facility] Respitory Rate 16 02/11/2017 [facility] Temperature Oral (F) 97.8 F 02/11/2017 [facility] Systolic (mm Hg) 121 02/11/2017 [facility] Diastolic (mm Hg) 61 02/11/2017 [facility] BMI Calculated 28.49 02/09/2017 [facility] Height 175.26 cm 02/09/2017 [facility] Weight 87.5 02/09/2017 [facility] BMI Calculated 33.07 02/08/2017 [facility] Weight 104.545 02/08/2017 [facility] Height 177.8 cm 02/08/2017 [facility] Encounters Location Location Details Encounter Type Encounter Number Reason For Visit Attending Provider ADM Date DC Date Status Source [facility] Observation [id number] Sanya Kumar 02/08/2017 02/11/2017 [facility] Practice - Care Management Анна Novoa: [address], [address], [place] [address], Ph. [id number] Анна Novoa 03/08/2017 [facility] Ramonita Allan MD: [address] [place] [phone], Ph. [id number] Ramonita Allan 03/11/2017 [facility] Ramonita Allan MD: [address] [place] [phone], Ph. [id number] Ramonita Allan 03/22/2017 [facility] Practice - Care Management [facility]: [address], [address], [place] [address], Ph. [id number] [facility] 04/06/2017 [facility] Ramonita Allan MD: [address] [place] [phone], Ph. [id number] Ramonita Allan 04/12/2017 [facility] Practice - Care Management [facility]: [address], [address], [place] [address], Ph. [id number] [facility] 04/21/2017 [facility] Practice - Care Management Анна Novoa: [address], [address], [place] [address], Ph. [id number] Анна Novoa 05/02/2017 [facility] Ramonita Allan MD: Pending sale to [facility] [place] [address], Ph. [id number] Ramonita Allan 05/10/2017 [facility] - Care Management Анна Novoa: [address], [address], [place] [address], Ph. [id number] Анна Novoa 05/11/2017 [facility] Joseph Miller MD: [address] [place] [address], Ph. [id number] Joseph Miller 05/18/2017 [facility] Ramonita Allan MD: Pending sale to [facility] [place] [address], Ph. [id number] Ramonita Allan 05/24/2017 [facility] - Care Management Анна Novoa: [address], [address], [place] [address], Ph. [id number] Анна Novoa 05/25/2017 [facility] - Care Management Анна Novoa: [address], [address], [place] [address], Ph. [id number] Анна Novoa 06/01/2017 [facility] Observation [id number] April Arthur 06/07/2017 06/09/2017 [facility] Practice - Care Management Анна Novoa: [address], [address], [place] [address], Ph. [id number] Анна Novoa 06/15/2017 [facility] Ramonita Allan MD: [address] [place] [address], Ph. [id number] Ramonita Allan 03/28/2018 [facility] Ramonita Allan MD: [address] [place] [address], Ph. [id number] Ramonita Allan 04/25/2018 [facility] Ramonita Allan MD: [address] [place] [address], Ph. [id number] Ramonita Allan 04/25/2018 [facility] Ramonita Allan MD: [address] [place] [address], Ph. [id number] Ramonita Allan 04/25/2018 [facility] MD: [address] [place] [address], Ph. [id number] Ramonita Allan 05/23/2018 [facility] Ramonita Allan MD: Pending [facility] to [facility] [place] [address], Ph. [id number] Ramonita Allan 05/23/2018 [facility] Ramonita Allan MD: [address] [place] [address], Ph. [id number] Ramonita Allan 07/11/2018 [facility] Ramonita Allan MD: [address] [place] [address], Ph. [id number] Ramonitaconsuelo Allan 07/11/[address] [facility] Departed Emergency Room [id number] EDUARDO DEL CID MD 07/26/2018 07/26/[address] [facility] Ramonita Allan MD: [address] [place] [address], Ph. [id number] Ramonita Allan 08/08/2018 [facility] Ramonita Allan MD: [address] [place] [address], Ph. [id number] Ramonita Allan 08/08/2018 [facility] Ramonita Allan MD: [address] [place] [address], Ph. [id number] Ramonita Allan 09/12/2018 [facility] Ramonita Allan MD: [address] [place] [address], Ph. [id number] Ramonita Allan 09/12/2018 [facility] Ramonita Allan MD: [address] [place] [address], Ph. [id number] Ramonitaconsuelo Allan 10/10/[address] [facility] Procedures Procedure Code Date Perfomer Comments Source Pacemaker 07/07/[address] [facility] Fistula Cannulation Set, Ea [id number] 06/09/[address] [facility] Other 04/11/[address] [facility] Amputation 04/11/[address] [facility] Amputation 04/11/[address] [facility] Stent placement [id number] [facility] Assessment and Plan Assessment and Plan Date [...] Date: 02/11/17 NEUROLOGY Progress Note - Daily [facility] Completed: Feb, 09:03 by Maria Isabel Crespo [...] intact ftn, hts Abnormal movements: none Coordination [id number] is intact Gait patient stood up and [...] mg PO Q4H 02/08/17 bisacodyl 10 mg [place] Daily 02/08/17 glucagon 1 mg IM PRN [...] expect 1 midnight stay for now 02/11/2017 [facility] Plan of Care Plan of Care Date Source Discharge Date 07/26/18 8:29pm Disposition LEFT AFTER MEDICAL SCREENING Condition at Discharge Other Forms Provided Work/School Excuse Prescriptions See Medication Section 07/26/2018 [facility] Social History Social History Date Source Social [...] 05/27/2017 4:15pm Not Applicable Not Applicable 07/26/2018 [facility] Social History TypeResponse Smoking Status Never smoker; Previous treatment: None; Ready to change: No; Concerns about tobacco use in household: No; Exposure to Tobacco Smoke None; Cigarette Smoking Last 365 Days No; Reg Smoking Cessation Counseling No entered on: 06/07/17 06/07/2017 [facility] Smoking Status Former Smoker (1 PPW) 03/11/[address] [facility] Family History No Data Provided for This Section Advance Directives Order Name Results Value Date Source Advance Directives Advance Directives Directive Response Recorded Date/Time Does the patient have an advance directive? No 05/27/17 4:15pm If yes, is advance directive on file with [facility]? No 05/27/17 4:15pm If not on file with [facility] will patient provide a copy? No 05/27/17 4:15pm 07/26/2018 [facility] Functional Status No Data Provided for This Section
--- NOTE | 2018-11-02 12:57 | NUR ---
1257 Bedside report received rm #[id number] from Keshav DICKENS.Identiferx2 Left Angioseal Pop SFA fix down and may dc home at 5pm. Alert oriented and appropriate, sleepy however.PERRLA, respirations even and unlabored to room air. Pulses x4 extremities Pedal pulses PT/DP doppler and marked. Cap fill brisk < 3 sec. Skin warm and dry integrity appears D/I. IV 20g to rt arm presents healthy w/o s/s of infiltration or complaint. Clamped off at this time has Hd tomorrow. Left av fistula arm with adequate bruit.Abdomen soft and supple. pt offered toileting, denies need to urinate or defecate. No personal affects with patient. Family off property. [place] [phone] notified of successful completion of procedure.Verbalizes understanding of POC. State will return for prior to dc time for instructions. Currently w/o complaint of pain or need. Rt Angioseal site w/o hematoma. NO oozing and dressing intact. ds/rn
--- NOTE | 2018-11-02 17:00 | NUR ---
1700 pt meets DC criteria. left Angioseal site assessed for s/s of complication and presecence of hematoma.warm, dry, no discolor, and pulses present. IV removed from arm. Distal tip appears intact. VS WNL. Pt denies pain, sob, or need at this time. Family at bedside. Review of discharge paperwork and follow up instructions. verbalized understanding. Pt to wheelchair and transported to front of hospital. Transferred to private vehicle under own strength w/o incident with DC paperwork in hand. - ds/rn
--- NOTE | 2018-11-02 19:40 | Operative Report ---
DATE OF PROCEDURE: SURGEON: Bentley Matthews MD PROCEDURES: 1. Atherectomy and UNDERGROUND MINE SUPERINTENDENT of right superficial femoral artery. 2. Atherectomy and UNDERGROUND MINE SUPERINTENDENT of right popliteal artery. 3. Peripheral angiogram to the third order. INDICATIONS: 1. Peripheral vascular disease. 2. Claudication. COMPLICATIONS: None. ANESTHESIA: Versed, fentanyl, and lidocaine. TECHNIQUE: The patient was draped and prepped in the usual fashion. The left groin was anesthetized with lidocaine. Standard Seldinger technique was used to place a 6-Telugu sheath into the left common femoral artery. An Advantage wire was used in combination with a crossover catheter and advanced into the right popliteal artery. Selective injections of the right leg were obtained sequentially down to the right popliteal from the left common femoral artery. The patient was then bolused with heparin 8000 units. A FilterWire was positioned in the tibioperoneal trunk on the right. Atherectomy was then done of the right popliteal artery and the right superficial femoral artery. Drug-eluting balloon was then used to treat the right popliteal artery stenosis and the right superficial femoral artery stenosis. There were no complications. An Angio-Seal device was used for closure. RESULTS: 1. The right common iliac artery, right external iliac artery, right internal iliac artery, right common femoral artery, and right profunda femoral artery had minimal disease. 2. The right superficial femoral artery had an 80% stenosis in its midportion. 3. The right popliteal artery had about 70% stenosis. 4. The trifurcation was patent, but then the anterior tibial artery was 100% occluded proximally. There was minimal disease in the peroneal artery, which extended down to the foot. The posterior tibial artery had an 80% proximal stenosis, but then flowed briskly down to the foot. There was overall two-vessel runoff. CONCLUSION: Successful directional atherectomy and UNDERGROUND MINE SUPERINTENDENT of the right superficial femoral artery and right popliteal artery without complication. Bentley Matthews MD DSH/MODL /[id number]
== END | disposition home or self-care (01) ==
LOC: CATH LAB 06:50
PROVIDERS: ATTEND Internal Medicine Cardiovascular Disease
DX: I70.211 Atherosclerosis of native arteries of extremities with intermittent claudication, right leg (principal); N18.6 End stage renal disease; Z99.2 Dependence on renal dialysis; Z01.812 Encounter for preprocedural laboratory examination; Z79.02 Long term (current) use of antithrombotics/antiplatelets; Z79.82 Long term (current) use of aspirin; Z79.4 Long term (current) use of insulin; Z87.891 Personal history of nicotine dependence
CPT/HCPCS: 36415 ×2; 37225; 75710; 80053; 82948; 85025; 85610; 85730; C1714; C1760; C1769 ×2; C1887; J2001; J2250; J3010; J7030; Q9967; 36247; C2623

== ENCOUNTER 2018-11-03 20:10 | Emergency (ER) | payer MEDICARE, OTHER ==
[~2018-11-03] VITALS: Ht 175.3 cm; Wt 90.7 kg
[~2018-11-03 20:10] MED LIST changes: -ALBUTEROL1.25 MG/3 INH; -FENTANYL CITRATE/PF 100MCG/2 ML INJ ONE; -HEPARIN SOD/SOD CHLORIDE 1,000 ML ONE; -HEPARIN SOD/SOD CHLORIDE 2,000 ML ONE; -IOPAMIDOL 300MG/ML 100 ML INFUS..BTL IV ONE; -LIDOCAINE HCL 2% LOCAL 20 ML VIAL ONE; -MIDAZOLAM HCL 2 MG/2 ML VIAL ONE; -SODIUM CHLORIDE 0.9% 1000ML 1,000 ML ONE
--- OUTSIDE RECORDS SUMMARY | 2018-11-03 20:16 | XMS REPORT | Continuity of Care Document ---
Author Author [employer] Organization [employer] Address Unknown Phone Unavailable Care Team Providers Care Filler Shaker Name Role Phone [employer] Unavailable Unavailable Problems Problem Status Onset Date Classification Date Reported Comments Source Open wound of lower leg 10/11/2018 Diagnosis 10/11/2018 [facility] Coronary arteriosclerosis 10/11/2018 Diagnosis 10/11/2018 [facility] Peripheral vascular disease 10/11/2018 Diagnosis 10/11/2018 [facility] Hospital patient 10/11/2018 Diagnosis 10/11/2018 [facility] Amputated big toe 10/10/2018 Diagnosis 10/11/2018 [facility] Onychomycosis of toenails 10/10/2018 Diagnosis 10/11/2018 [facility] Pruritus of skin 10/10/2018 Diagnosis 10/11/2018 [facility] Amputated Big Toe 10/10/2018 Problem 10/11/2018 [facility] Deep venous thrombosis of upper extremity 09/13/2018 Diagnosis 10/11/2018 [facility] Abnormal Gait Due to Muscle Weakness 09/13/2018 Problem 10/11/2018 [facility] Abnormal gait due to muscle weakness 09/12/2018 Diagnosis 10/11/2018 [facility] Congestive heart failure 09/12/2018 Diagnosis 10/11/2018 [facility] End stage renal failure on dialysis 09/12/2018 Diagnosis 10/11/2018 [facility] Body mass index 25-29 - overweight 09/12/2018 Diagnosis 10/11/2018 [facility] Productive cough 09/12/2018 Diagnosis 10/11/2018 [facility] Type II diabetes mellitus uncontrolled 09/12/2018 Diagnosis 10/11/2018 [facility] Carpal Tunnel Syndrome 08/27/2018 Problem 10/11/2018 [facility] Diabetic neuropathy 08/09/2018 Diagnosis 08/09/2018 [facility] Stented coronary artery 08/09/2018 Diagnosis 08/09/2018 [facility] Deep Venous Thrombosis of Upper Extremity 08/09/2018 Problem 10/11/2018 [facility] Screening for malignant neoplasm of colon 08/08/2018 Diagnosis 08/09/2018 [facility] Immunization 08/08/2018 Diagnosis 08/09/2018 [facility] Screening for osteoporosis 08/08/2018 Diagnosis 08/09/2018 [facility] Essential hypertension 07/11/2018 Diagnosis 08/09/2018 [facility] History of cerebrovascular accident 07/11/2018 Diagnosis 08/09/2018 [facility] Chronic obstructive lung disease 05/23/2018 Diagnosis 06/09/2018 [facility] Angina pectoris 05/23/2018 Diagnosis 06/09/2018 [facility] Senile purpura 05/23/2018 Diagnosis 06/09/2018 [facility] Tinea cruris 05/23/2018 Diagnosis 06/09/2018 [facility] Skin lesion 05/23/2018 Diagnosis 06/09/2018 [facility] Immunization refused 05/23/2018 Diagnosis 06/09/2018 [facility] History of smoking 05/23/2018 Diagnosis 05/23/2018 [facility] Adult health examination 04/25/2018 Diagnosis 06/09/2018 [facility] Benign prostatic hyperplasia 04/25/2018 Diagnosis 06/09/2018 [facility] Incontinence of feces 04/25/2018 Diagnosis 06/09/2018 [facility] Seasonal allergic rhinitis 04/25/2018 Diagnosis 06/09/2018 [facility] Advance directive discussed with patient 04/25/2018 Diagnosis 06/09/2018 [facility] Depression screening 04/25/2018 Diagnosis 06/09/2018 [facility] End Stage Renal Failure on Dialysis 12/13/2017 Problem 10/11/2018 [facility] Acute kidney failure, unspecified 06/17/2017 09/14/2017 [facility] FALL Active 06/07/2017 [facility] CHAI, GENERALIZED WEAKNESS Active 06/07/2017 [facility] Hypoglycemic state in diabetes 05/26/2017 Diagnosis 07/09/2017 [facility] Hypoglycemic State in Diabetes 05/26/2017 Problem 10/11/2018 [facility] Dyspnea at rest 05/10/2017 Diagnosis 07/09/2017 [facility] Benign Prostatic Hyperplasia 04/13/2017 Problem 10/11/2018 [facility] Cough 04/12/2017 Diagnosis 07/09/2017 [facility] Hypertensive disorder 04/12/2017 Diagnosis 07/09/2017 [facility] Acid reflux 04/12/2017 Diagnosis 07/09/2017 [facility] Type 2 diabetes mellitus 04/12/2017 Diagnosis 07/09/2017 [facility] Chronic kidney disease 03/24/2017 Diagnosis 07/09/2017 [facility] Hypotensive episode 03/24/2017 Diagnosis 07/09/2017 [facility] Altered mental status 03/24/2017 Diagnosis 07/09/2017 [facility] History of Cerebrovascular Accident 03/21/2017 Problem 10/11/2018 [facility] Type II Diabetes Mellitus Uncontrolled 03/19/2017 Problem 10/11/2018 [facility] Diabetic Neuropathy 03/19/2017 Problem 10/11/2018 [facility] Essential Hypertension 03/19/2017 Problem 10/11/2018 [facility] Congestive Heart Failure 03/19/2017 Problem 10/11/2018 [facility] Peripheral Vascular Disease 03/19/2017 Problem 10/11/2018 [facility] Chronic Kidney Disease 03/19/2017 Problem 10/11/2018 [facility] Stented Coronary Artery 03/19/2017 Problem 10/11/2018 [facility] Cerebrovascular Accident 03/19/2017 Problem 07/09/2017 [facility] Diabetic peripheral neuropathy 03/11/2017 Diagnosis 07/09/2017 [facility] Chronic kidney disease stage 3 03/11/2017 Diagnosis 07/09/2017 [facility] Cerebrovascular accident 03/11/2017 Diagnosis 07/09/2017 [facility] Mixed hyperlipidemia due to type 2 diabetes mellitus 03/11/2017 Diagnosis 07/09/2017 [facility] At risk for falls 03/11/2017 Diagnosis 07/09/2017 [facility] STROKE-LIKE SYMPTOMS Active 02/08/2017 [facility] SLURRED SPEECH/ GAIT ABNORMALITY Active 02/08/2017 [facility] Hematuria Active 04/01/2015 Problem 07/27/2018 [facility] Renal insufficiency Active 04/01/2015 Problem 07/27/2018 [facility] UTI Active 04/01/2015 Problem 07/27/2018 [facility] 569.89 Active 10/29/2014 [facility] Type 2 diabetes [...] without complications 09/14/2017 [facility] Hyperlipidemia, unspecified 09/14/2017 [facility] Atherosclerotic heart disease of [place] coronary artery without angina pectoris 09/14/2017 [facility] Personal history of transient ischemic attack , and cerebral infarction without residual deficits 09/14/2017 [facility] Personal history of nicotine dependence 09/14/2017 [facility] intermediate manager use of aspirin 09/14/2017 [facility] MCFP use of insulin 09/14/2017 [facility] CHF exacerbation Active Problem 07/27/2018 [facility] CKD Active Problem 07/27/2018 [facility] Chest pain Active Problem 07/27/2018 [facility] Febrile illness Active Problem 07/27/2018 [facility] Hyperkalemia Active Problem 07/27/2018 [facility] Hyperlipidemia Problem 10/11/2018 [facility] ACUTE KIDNEY FAILURE, UNSPECIFIED Active [facility] WEAKNESS Active [facility] Medications Medication Details Route Status Patient Instructions Ordering Provider Order Date Source Morphine 2 mg, 1 mL, Route: IVP, Drug form: INJ, Q4H, Dosing Weight 95.597, kg, PRN Pain Score 7-10, Start date: 06/08/17 10:32:00 CORE ANALYST, Duration: 30 day, Stop date: 07/08/17 10:31:00 CDTNotes: (Same as:MORPhine Sulfate) Inactive 06/08/2017 [facility] Hydralazine 10 mg, 0.5 mL, Route: IVP, Drug form: INJ, Q4H, Dosing Weight 95.597, kg, PRN Elevated BP, Start date: 06/08/17 10:09:00 CORE ANALYST, Duration: 30 day, Stop date: 07/08/17 10:08:00 CDTNotes: (Same as: Joseph line) Push over 5 minutes Inactive 06/08/2017 [facility] Saline Flush 0.9% 10 ml, Route: IVP, Drug Form: INJ, Dosing Weight 95.597, kg, Q12H, Start date: 06/07/17 21:00:00 CORE ANALYST, Duration: 30 day, Stop date: 07/07/17 9:00:00 CDTNotes: (Same as: BD Posiflush) No Longer Active 06/08/2017 [facility] atorvastatin 80 mg, 2 tab, Route: PO, Drug form: TAB, Bedtime, Dosing Weight 95.597, kg, Start date: 06/07/17 21:00:00 CORE ANALYST, Duration: 30 day, Stop date: 07/06/17 21:00:00 CDTNotes: (Same as: Lipitor) No Longer Active 06/08/2017 [facility] Acyclovir 750 mg, Route: IV, Drug form: PDR/INJ, [id number], Dosing Weight 95.597, kg, Start date: 06/07/17 21:00:00 CORE ANALYST, Duration: 7 day, Stop date: 06/13/17 21:00:00 CSTNotes: (Same as: Zovirax) For adult patients only: Round to nearest 50 mg per Medical Staff approval MEDICATION WASTE Product Size: 500 mg Product Wasted: 250 mg No Longer Active 06/08/2017 [facility] Morphine 4 mg, 1 mL, Route: IVP, Drug form: SOLN, Q4H, Dosing Weight 95.597, kg, PRN Pain Score 7-10, Start date: 06/07/17 20:16:00 CORE ANALYST, Duration: 30 day, Stop date: 07/07/17 20:15:00 CDTNotes: (Same as:MORPhine Sulfate) No Longer Active 06/08/2017 [facility] heparin 5,000 unit, 1 mL, Route: SUB-Q, Drug form: INJ, Q8H-06, Dosing Weight 95.597, kg, (For patients weighing Notes: porcine heparin No Longer Active 06/07/2017 [facility] valacyclovir 1,000 mg, 2 tab, Route: PO, Drug form: TAB, [id number], Dosing Weight 95.597, kg, Priority: NOW, Start date: 06/07/17 10:47:00 CORE ANALYST, Duration: 7 day, Stop date: 06/13/17 10:47:00 CSTNotes: (Same As: Valtrex) Inactive 06/07/2017 [facility] Aspirin 300 MG Rectal Suppository 300 mg, 1 supp, Route: FL, Drug form: SUPP, ONCE, Dosing Weight 95.597, kg, Priority: NOW, Start date: 06/07/17 10:40:00 CORE ANALYST, Stop date: 06/07/17 10:40:00 CSTNotes: Refrigerate. Inactive 06/07/2017 [facility] Aspirin 81 MG Enteric Coated Tablet 81 mg, 1 tab, Route: PO, Drug form: ECTAB, Q24H, Dosing Weight 95.597, kg, Start date: 06/07/17 10:00:00 CORE ANALYST, Duration: 30 day, Stop date: 07/06/17 10:00:00 CDTNotes: Do not crush or chew. (Same As: Ecotrin) No Longer Active 06/07/2017 [facility] Glucagon 1 mg, Route: IM, Drug form: PDR/INJ, PRN, Dosing Weight 95.597, kg, PRN Blood Glucose Results, Start date: 06/07/17 9:48:00 CORE ANALYST, Duration: 30 day, Stop date: 07/07/17 10:47:00 CDT No Longer Active 06/07/2017 [facility] Dextrose 50% Syringe 25 gm, 50 mL, Route: IVP, Drug Form: INJ, Dosing Weight 95.597, kg, PRN, PRN Blood Glucose Results, Start date: 06/07/17 9:48:00 CORE ANALYST, Duration: 30 day, Stop date: 07/07/17 10:47:00 CDT No Longer Active 06/07/2017 [facility] Insulin Lispro 4 unit, 0.04 mL, Route: SUB-Q, Drug form: SOLN, Sliding Scale, Dosing Weight 95.597, kg, PRN Blood Glucose Results, Start date: 06/07/17 9:48:00 CORE ANALYST, Duration: 30 day, Stop date: 07/07/17 10:47:00 CDTNo naldo: (Same as: Humalog ) Roll in palms of hands gently; Do not shake `vigorously. "Single Patient Use Only " WASTE: F/P - Black; E - [employer] Trash Bin Stable for 28 days at room temperature. Expires in days from Date No Longer Active 06/07/2017 [facility] Saline Flush 0.9% 10 ml, Route: IVP, Drug Form: INJ, Dosing Weight 95.597, kg, PRN, PRN Line Flush, Start date: 06/07/17 9:47:00 CORE ANALYST, Duration: 30 day, Stop date: 07/07/17 10:46:00 CDTNotes: (Same as: BD Posiflush) No Longer Active 06/07/2017 [facility] Saline Flush 0.9% 10 ml, Route: IVP, Drug Form: INJ, Dosing Weight 87.5, kg, PRN, PRN Line Flush, Start date: 06/07/17 7:07:00 CORE ANALYST, Duration: 30 day, Stop date: 07/07/17 8:06:00 CDTNotes: (Same as: BD Posiflush) No Longer Active 06/07/2017 [facility] Sodium Chloride 0.9% IV 1,000 mL 1,000 mL, Rate: 125 ml/hr, Infuse over: 8 hr, Route: IV, Dosing Weight 87.5 kg, Total Volume: 1,000, Start date: 06/07/17 7:07:00 CORE ANALYST, Duration: 30 day, Stop date: 07/07/17 7:06:00 CDT, 2.08, m2 No Longer Active 06/07/2017 [facility] Ondansetron 4 mg, 2 mL, Route: IVP, Drug form: INJ, Q6H, Dosing Weight 87.5, kg, PRN Nausea & Vomiting, Start date: 06/07/17 7:07:00 CORE ANALYST, Duration: 30 day, Stop date: 07/07/17 7:06:00 CDTNotes: (Same as: Zofran) MEDICATION WASTE Product Size: 4 mg Product Wasted: ___ mg No Longer Active 06/07/2017 [facility] Acetaminophen 650 mg, 2 tab, Route: PO, Drug form: TAB, Q4H, Dosing Weight 87.5, kg, PRN Pain 1-3/Temp > 100.4 F, Start date: 06/07/17 7:07:00 CORE ANALYST, Duration: 30 day, Stop date: 07/07/17 7:06:00 CDTNotes: Do not ex ceed 4 gm/day. (Same as: Tylenol) No Longer Active 06/07/2017 [facility] Sodium Chloride 0.9% IV 1,000 mL 1,000 mL, Rate: 75 ml/hr, Infuse over: 13.3 hr, Route: IV, Dosing Weight 87.5 kg, Total Volume: 1,000, Start date: 06/07/17 6:02:00 CORE ANALYST, Duration: 30 day, Stop date: 07/07/17 6:01:00 CDT, 2.08, m2 Inactive 06/07/2017 [facility] Insulin Glargine (Lantus 3ML Pen) 100 Units/1 Ml Inj, 20 Bedtime Active 05/28/2017 [facility] Insulin Glargine (Lantus) 100 Units/Ml Ml, 34 Units Sub-Q Bedtime Active 05/28/2017 [facility] Amoxicillin 875 MG / Clavulanate 125 MG Oral Tablet amoxicillin 875 mg-potassium clavulanate 125 mg tablet Active 05/24/2017 [facility] Azithromycin 250 MG Oral Tablet azithromycin 250 mg tablet Active 05/10/2017 [facility] benzonatate 200 MG Oral Capsule benzonatate 200 mg capsule Take 1 capsule 3 times a day by oral route for 10 days. Active 05/10/2017 [facility] Infinity Meter Kit Infinity Meter Kit Active 05/10/2017 [facility] lancing device lancing device Active 05/10/2017 [facility] 3 ML Insulin Glargine 100 UNT/ML Pen Injector [Lantus] Lantus Solostar U-100 Insulin 100 unit/mL (3 mL) subcutaneous pen 20 units at bedtime Active 05/10/2017 [facility] True Metrix Glucose Test Strip True Metrix Glucose Test Strip use 4 times a day Active 05/10/2017 [facility] Clindamycin 150 MG Oral Capsule clindamycin HCl 150 mg capsule 2 capsules every 6 hrs Active 04/12/2017 [facility] gabapentin 300 MG Oral Capsule gabapentin 300 mg capsule Take 1 capsule twice a day by oral route. Active 04/12/2017 [facility] Lisinopril 20 MG Oral Tablet lisinopril 20 mg tablet Take 1 tablet twice a day by oral route. Active 04/12/2017 [facility] Metolazone 2.5 MG Oral Tablet metolazone 2.5 mg tablet Take 1 tablet twice a day by oral route. Active 04/12/2017 [facility] Regular Insulin, Human 100 UNT/ML Injectable Solution [Novolin R] Novolin R Regular U-100 Insulin 100 unit/mL injection solution Active 04/12/2017 [facility] Pentoxifylline 400 MG Extended Release Oral Tablet pentoxifylline ER 400 mg tablet,extended release Take 1 tablet 3 times a day by oral route. Active 04/12/2017 [facility] Microencapsulated Potassium Chloride 10 MEQ Extended Release Oral Tablet potassium chloride ER 10 mEq tablet,extended release(part/cryst) Take 1 tablet twice a day by oral route. Active 04/12/2017 [facility] Acetaminophen 300 MG / Codeine Phosphate 30 MG Oral Tablet acetaminophen 300 mg-codeine 30 mg tablet Active 03/11/2017 [facility] Cephalexin 500 MG Oral Capsule cephalexin 500 mg capsule Active 03/11/2017 [facility] Ciprofloxacin 500 MG Oral Tablet ciprofloxacin 500 mg tablet Take 1 tablet twice a day by oral route. Active 03/11/2017 [facility] Doxepin Hydrochloride 50 MG/ML Topical Cream doxepin 5 % topical cream Active 03/11/2017 [facility] gabapentin 100 MG Oral Capsule gabapentin 100 mg capsule Active 03/11/2017 [facility] gatifloxacin 5 MG/ML Ophthalmic Solution gatifloxacin 0.5 % eye drops Active 03/11/2017 [facility] Ketorolac Tromethamine 5 MG/ML Ophthalmic Solution ketorolac 0.5 % eye drops Active 03/11/2017 [facility] Levofloxacin 250 MG Oral Tablet levofloxacin 250 mg tablet Active 03/11/2017 [facility] Mupirocin 0.02 MG/MG Topical Ointment mupirocin 2 % topical ointment Active 03/11/2017 [facility] prednisolone acetate 10 MG/ML Ophthalmic Suspension prednisolone acetate 1 % eye drops,suspension Active 03/11/2017 [facility] Sulfamethoxazole 800 MG / Trimethoprim 160 MG Oral Tablet sulfamethoxazole 800 mg-trimethoprim 160 mg tablet Active 03/11/2017 [facility] tramadol hydrochloride 50 MG Oral Tablet tramadol 50 mg tablet Active 03/11/2017 [facility] TRUEplus Lancets 28 gauge TRUEplus Lancets 28 gauge Active 03/11/2017 [facility] Acetaminophen With Codeine (Tylenol With Codeine #3 Tablet) 1 Each Tablet, 300 Mg Oral Every 6 Hours as needed for Pain Active 03/04/2017 [facility] Carvedilol 6.25 Mg Tablet, 3.125 Mg Oral Bedtime Active 03/04/2017 [facility] Ferrous Sulfate 325 Mg Tablet, 325 Mg Oral Daily Active 03/04/2017 [facility] Metolazone 5 Mg Tablet, 2.5 Mg Oral Twice A Day Active 03/04/2017 [facility] Zaroxolyn , 2.5 Mg Oral Twice A Day as needed for Shortness Of Breath Active 03/04/2017 [facility] Lantus 100 units/mL 25 unit, SUB-Q, Bedtime, # 10 mL, 0 Refill(s), Pharmacy: [facility] [id number] Active 02/11/2017 [facility] pneumococcal 13-valent vaccine 0.5 mL, Route: IM, Drug Form: INJ, Daily, Start date: 02/09/17 9:00:00 CDT, Duration: 1 doses or times, Stop date: 02/09/17 9:00:00 CDTNotes: Shake well prior to use (Same as: Prevnar 13) Inactive 02/09/2017 [facility] metolazone 2.5 mg oral tablet 2.5 mg, 1 tab, Route: PO, Drug form: TAB, BID, Dosing Weight 87.5, kg, Start date: 02/09/17 9:00:00 CDT, Duration: 30 day, Stop date: 03/10/17 17:00:00 CSTNotes: (Same as: Zaroxolyn) No Longer Active 02/09/2017 [facility] lisinopril 20 mg, Route: PO, Drug form: TAB, BID, Dosing Weight 87.5, kg, Start date: 02/09/17 9:00:00 CDT, Duration: 30 day, Stop date: 03/10/17 17:00:00 CORE ANALYST Inactive 02/09/2017 [facility] gabapentin 300 mg oral capsule 300 mg, 1 cap, Route: PO, Drug form: CAP, Q12H, Dosing Weight 87.5, kg, Start date: 02/09/17 9:00:00 CDT, Duration: 30 day, Stop date: 03/10/17 21:00:00 CSTNotes: (Same as: Neurontin) No Longer Active 02/09/2017 [facility] influenza virus vaccine, inactivated 0.5 mL, Route: IM, Drug Form: SUSP, Daily, Start date: 02/09/17 9:00:00 CDT, Duration: 1 doses or times, Stop date: 02/09/17 9:00:00 CDTNotes: (Same as: Fluzone Quadrivalent, Fluarix Quadrivalent) For 3 years of age and older (0.5 mL IM) Shake well before use Inactive 02/09/2017 [facility] Humalog 10 unit, 0.1 mL, Route: [...] days from Date No Longer Active 02/09/2017 [facility] NovoLOG 10 unit, Route: SUB-Q, Drug form: SOLN, TID-Before Meals, Dosing Weight 87.5, kg, Start date: 02/09/17 7:30:00 CDT, Duration: 30 day, Stop date: 03/10/17 16:30:00 CORE ANALYST Inactive 02/09/2017 [facility] ciprofloxacin 500 mg, 1 tab, Route: PO, Drug form: TAB, [id number], Dosing Weight 87.5, kg, Start date: 02/09/17 1:00:00 CDT, Duration: 30 day, Stop date: 03/10/17 13:00:00 CORE ANALYST, ABX Indication: Skin/Soft Tissue Infectio nNotes: May interfere w/enteral feedings - Take 1 hr before or 2 hrs after antacids, dairy pdt & minerals. On empty stomach. Inactive 02/09/2017 [facility] Lantus 100 units/mL 25 unit, 0.25 mL, Route: SUB-Q, Drug form: SOLN, Bedtime, Dosing Weight 87.5, kg, Start date: 02/09/17 0:03:00 CDT, Duration: 30 day, Stop date: 03/10/17 21:00:00 CSTNotes: (Same as: Lantus) Do not hold insulin without contacting prescriber WASTE: F/P - Black; E - [employer] Trash Bin "single patient use only" No Longer Active 02/09/2017 [facility] hydrALAZINE 50 mg oral tablet 50 mg, 1 tab, Route: PO, Drug form: TAB, Q8H, Dosing Weight 87.5, kg, Start date: 02/09/17 0:00:00 CDT, Duration: 30 day, Stop date: 03/10/17 16:00:00 CORE ANALYST Inactive 02/09/2017 [facility] lisinopril 20 mg oral tablet 20 mg=1 tab, PO, BID, 0 Refill(s) No Longer Active 02/09/2017 [facility] metolazone 2.5 mg oral tablet 2.5 mg=1 tab, PO, BID, 0 Refill(s) Active 02/09/2017 [facility] furosemide 40 mg oral tablet 80 mg=2 tab, PO, QAM, 0 Refill(s) No Longer Active 02/09/2017 [facility] gabapentin 300 mg oral capsule 300 mg=1 cap, PO, BID, 0 Refill(s) No Longer Active 02/09/2017 [facility] ciprofloxacin 500 mg oral tablet 500 mg=1 tab, PO, Q12H, 0 Refill(s) No Longer Active 02/09/2017 [facility] hydrALAZINE 50 mg oral tablet 50 mg=1 tab, PO, Q8H, 0 Refill(s) No Longer Active 02/09/2017 [facility] NovoLOG 100 units/mL 10 unit, SUB-Q, TID-Before Meals, # 10 mL, 0 Refill(s) Active 02/09/2017 [facility] potassium chloride 10 mEq oral tablet, extended release 10 mEq=1 tab, PO, BID, 0 Refill(s) No Longer Active 02/09/2017 [facility] Lantus 100 units/mL 34 units, SUB-Q, Bedtime, 0 Refill(s) No Longer Active 02/09/2017 [facility] atorvastatin 80 mg oral tablet 80 mg=1 tab, PO, Daily, 0 Refill(s) Active 02/09/2017 [facility] clindamycin 150 mg, PO, Q6H, 2 capsules, 0 Refill(s) Active 02/09/2017 [facility] aspirin 81 mg tablet, chewable 81 mg=1 tab, CHEW, Daily, 0 Refill(s) Active 02/09/2017 [facility] clindamycin 300 mg, 1 cap, Route: PO, Drug form: CAP, [id number], Dosing Weight 104.545, kg, Start date: 02/08/17 21:00:00 CDT, Duration: 5 day, Stop date: 02/13/17 15:00:00 CORE ANALYST, ABX Indication: Skin/Soft Tissue Inf ectionNotes: (Same As: Cleocin) No Longer Active 02/09/2017 [facility] Lipitor 80 mg, 2 tab, Route: PO, Drug form: TAB, Bedtime, Dosing Weight 104.545, kg, Start date: 02/08/17 21:00:00 CDT, Duration: 30 day, Stop date: 03/09/17 21:00:00 CSTNotes: (Same as: Lipitor) No Longer Active 02/09/2017 [facility] Saline Flush 0.9% 10 ml, Route: IVP, Drug Form: INJ, Dosing Weight 104.545, kg, Q12H, Start date: 02/08/17 21:00:00 CDT, Duration: 30 day, Stop date: 03/10/17 9:00:00 CSTNotes: (Same as: BD Posiflush) No Longer Active 02/09/2017 [facility] aspirin 81 mg tablet, enteric coated 81 mg, 1 tab, Route: PO, Drug form: ECTAB, Daily, Dosing Weight 104.545, kg, Start date: 02/08/17 21:00:00 CDT, Duration: 30 day, Stop date: 03/10/17 9:00:00 CSTNotes: Do not crush or chew. (Same As: Ecotrin) No Longer Active 02/09/2017 [facility] hydrALAZINE 10 mg, 0.5 mL, Route: IVP, Drug form: INJ, Q6H, Dosing Weight 104.545, kg, PRN Hypertension, Start date: 02/08/17 20:35:00 CDT, Duration: 30 day, Stop date: 03/10/17 20:34:00 CORE ANALYST, FOR sbp > 180 MMNotes: (Same as: Apresoline) Push over 5 minutes No Longer Active 02/09/2017 [facility] insulin lispro 5 unit, 0.05 mL, [...] days from Date No Longer Active 02/09/2017 [facility] glucagon 1 mg, Route: IM, Drug form: PDR/INJ, PRN, Dosing Weight 104.545, kg, PRN Blood Glucose Results, Start date: 02/08/17 20:35:00 CDT, Duration: 30 day, Stop date: 03/10/17 19:34:00 CORE ANALYST No Longer Active 02/09/2017 [facility] Dextrose 50% Syringe 25 gm, 50 mL, Route: IVP, Drug Form: INJ, Dosing Weight 104.545, kg, PRN, PRN Blood Glucose Results, Start date: 02/08/17 20:35:00 CDT, Duration: 30 day, Stop date: 03/10/17 19:34:00 CORE ANALYST No Longer Active 02/09/2017 [facility] Saline Flush 0.9% 10 ml, Route: IVP, Drug Form: INJ, Dosing Weight 104.545, kg, PRN, PRN Line Flush, Start date: 02/08/17 20:26:00 CDT, Duration: 30 day, Stop date: 03/10/17 19:25:00 CORE ANALYST Inactive 02/09/2017 [facility] ondansetron 4 mg, 2 mL, Route: IVP, Drug form: INJ, Q8H, Dosing Weight 104.545, kg, PRN Nausea & Vomiting, Start date: 02/08/17 20:26:00 CDT, Duration: 30 day, Stop date: 03/10/17 20:25:00 CSTNotes: (Same as: Taylor) MEDICATION WASTE Product Size: 4 mg Product Wasted: ___ mg No Longer Active 02/09/2017 [facility] acetaminophen 650 mg, 2 tab, Route: PO, Drug form: TAB, Q4H, Dosing Weight 104.545, kg, PRN Pain 1-3/Temp > 99.5 F, Start date: 02/08/17 20:26:00 CDT, Duration: 30 day, Stop date: 03/10/17 20:25:00 CSTNotes: Do not exceed 4 gm/day. (Same as: Tylenol) No Longer Active 02/09/2017 [facility] bisacodyl 10 mg, 1 supp, Route: FL, Drug form: SUPP, Daily, Dosing Weight 104.545, kg, PRN Constipation, Start date: 02/08/17 20:26:00 CDT, Duration: 30 day, Stop date: 03/10/17 20:25:00 CSTNotes: (Same As: Dulcolax, Bisco-Lax) No Longer Active 02/09/2017 [facility] Saline Flush 0.9% 10 mL, Route: IVP, Drug Form: INJ, Dosing Weight 104.545, kg, PRN, PRN Line Flush, Start date: 02/08/17 16:21:00 CDT, Duration: 30 day, Stop date: 03/10/17 15:20:00 CSTNotes: (Same as: BD Posiflush) No Longer Active 02/08/2017 [facility] Pentoxifylline 400 Mg Tablet.er, 400 Mg Oral Three Times A Day Active 09/20/2016 [facility] Cephalexin 500 Mg Capsule, 500 Mg Oral Three Times A Day Active 09/05/2016 [facility] Ciprofloxacin Hcl (Cipro) 500 Mg Tablet, 500 Mg Oral Every 12 Hours Active 09/05/2016 [facility] Clindamycin Hcl 150 Mg Capsule, 300 Mg Oral Every 8 Hours Active 09/05/2016 [facility] Sulfamethoxazole/Trimethoprim (Bactrim Ds Tablet) 1 Each Tablet, 1 Tab Oral Twice A Day Active 09/05/2016 [facility] Lisinopril (Zestril*) 20 Mg Tablet, 20 Mg Oral Twice A Day Active 02/04/2016 [facility] Acetaminophen With Codeine (Tylenol With Codeine #3 Tablet) 1 Each Tablet, 300 Mg Oral Every 4 Hours Active 09/05/2015 [facility] Famotidine 20 Mg Tab, 20 Mg Oral Daily Active 09/05/2015 [facility] Levofloxacin (Levaquin) 500 Mg Tablet, 500 Mg Oral Daily Active 09/05/2015 [facility] Meclizine Hcl 12.5 Mg Tablet, 25 Mg Oral Twice A Day Active 09/05/2015 [facility] Cholecalciferol (Vitamin D3) (Vitamin D) 5,000 Unit Tablet, 5000 Units Oral Daily Active 04/01/2015 [facility] Aspirin (Aspir 81) 81 Mg Tablet.dr Daily Active [facility] Atorvastatin Calcium 80 Mg Tablet Daily Active [facility] Carvedilol 3.125 Mg Tablet Bedtime Active [facility] Clopidogrel Bisulfate (Clopidogrel) 75 Mg Tablet Daily Active [facility] Famotidine 20 Mg Tab Twice A Day Active [facility] Furosemide 20 Mg Tablet Twice A Day Active [facility] Hydralazine Hcl 10 Mg Tablet Every 8 Hours Active [facility] Insulin Glargine (Lantus 3ML Pen) 100 Units/1 Ml Inj Bedtime Active [facility] Insulin Regular, Human (Novolin R) 100 Unit/1 Ml Vial Three Times A Day Active [facility] Isosorbide Dinitrate 20 Mg Tablet Daily Active [facility] Tamsulosin Hcl (Flomax*) 0.4 Mg Cap Daily Active [facility] Albuterol 0.83 MG/ML Inhalation Solution albuterol sulfate 2.5 mg/3 mL (0.083 %) solution for nebulization Inhale 3 mL 3 times a day by nebulization route as needed. Active [facility] atorvastatin 80 MG Oral Tablet atorvastatin 80 mg tablet TAKE 1 TABLET BY MOUTH EVERYDAY AT BEDTIME Active [facility] Azithromycin 250 MG Oral Tablet azithromycin 250 mg tablet TAKE 2 TABLETS (500 MG) BY ORAL ROUTE ONCE DAILY FOR 1 DAY THEN 1 TABLET (250 MG) BY ORAL ROUTE ONCE DAILY FOR 4 DAYS Active [facility] carvedilol 3.125 MG Oral Tablet carvedilol 3.125 mg tablet TAKE 1 TABLET BY MOUTH EVERYDAY AT BEDTIME Active [facility] clonidine clonidine as needed Active [facility] clopidogrel 75 MG Oral Tablet clopidogrel 75 mg tablet TAKE 1 TABLET BY MOUTH EVERY DAY Active [facility] Fluconazole 150 MG Oral Tablet fluconazole 150 mg tablet Take 1 tablet every day by oral route for 7 days. Active [facility] Furosemide 40 MG Oral Tablet furosemide 40 mg tablet Take 1 tablet twice a day by oral route as needed. Active [facility] Hydralazine Hydrochloride 50 MG Oral Tablet hydralazine 50 mg tablet TAKE 1 TABLET BY MOUTH EVERY 8 HOURS Active [facility] Isosorbide Dinitrate 30 MG Oral Tablet isosorbide dinitrate 30 mg tablet TAKE 1 TABLET BY MOUTH EVERY DAY Active [facility] 3 ML Insulin Glargine 100 UNT/ML Pen Injector [Lantus] Lantus Solostar U-100 Insulin 100 unit/mL (3 mL) subcutaneous pen Inject 24 units every day by subcutaneous route in the morning. Active [facility] 3 ML insulin detemir 100 UNT/ML Pen Injector [Levemir] Levemir FlexTouch U-100 Insulin 100 unit/mL (3 mL) subcutaneous pen Active [facility] Loratadine 10 MG Oral Tablet loratadine 10 mg tablet TAKE 1 TABLET BY MOUTH EVERY DAY NEEDED Active [facility] Lorazepam 2 MG Oral Tablet lorazepam 2 mg tablet Take 1 tablet every day by oral route as needed. Active [facility] medroxyprogesterone acetate 5 MG Oral Tablet medroxyprogesterone 5 mg tablet TAKE 1 TABLET BY MOUTH EVERY DAY Active [facility] Mupirocin 0.02 MG/MG Topical Ointment mupirocin 2 % topical ointment APPLY A SMALL AMOUNT TO THE AFFECTED AREA BY TOPICAL ROUTE 3 TIMES PER DAY Active [facility] Insulin, Aspart, Human 100 UNT/ML Injectable Solution [NovoLog] Novolog U-100 Insulin aspart 100 unit/mL subcutaneous solution Inject 7 units 3 times a day by subcutaneous route as needed for 30 days. Active [facility] Nystatin 200356 UNT/ML Topical Cream nystatin 100,000 unit/gram topical cream Apply 1 application twice a day by topical route for 15 days. Active [facility] Nystatin 100 UNT/MG Topical Powder nystatin 100,000 unit/gram topical powder APPLY TO THE AFFECTED AREA(S) BY TOPICAL ROUTE 2 TIMES PER DAY Active [facility] OneTouch Delica Lancets 33 gauge OneTouch Delica Lancets 33 gauge Active [facility] OneTouch Verio Mid Control solution OneTouch Verio Mid Control solution Active [facility] OneTouch Verio strips OneTouch Verio strips Active [facility] sevelamer carbonate 800 MG Oral Tablet sevelamer carbonate 800 mg tablet Take 1 tablet 3 times a day by oral route for 90 days. Active [facility] Suprep Bowel Prep Kit 17.5 gram-3.13 gram-1.6 gram oral solution Suprep Bowel Prep Kit 17.5 gram-3.13 gram-1.6 gram oral solution Active [facility] Tamsulosin hydrochloride 0.4 MG Oral Capsule tamsulosin 0.4 mg capsule TAKE 1 CAPSULE(S) EVERY DAY BY ORAL ROUTE. Active [facility] Ultra Thin Lancets 31 gauge Ultra Thin Lancets 31 gauge Take 1 each every day by miscell. route for 90 days. Active [facility] Ergocalciferol 65910 UNT Oral Capsule Vitamin D2 50,000 unit capsule Take 1 capsule every week by oral route. Active [facility] Famotidine 20 MG Oral Tablet famotidine 20 mg tablet Active [facility] Acetaminophen 325 MG / Hydrocodone Bitartrate 5 MG Oral Tablet hydrocodone 5 mg-acetaminophen 325 mg tablet Active [facility] Lorazepam 0.5 MG Oral Tablet lorazepam 0.5 mg tablet Take 2 tablets 3 times a day by oral route. Active [facility] Nystatin 100 UNT/MG Topical Powder [Nystop] Nystop 100,000 unit/gram topical powder APPLY TO THE AFFECTED AREA(S) BY TOPICAL ROUTE 2 TIMES PER DAY Active [facility] rivaroxaban 15 MG Oral Tablet [Xarelto] Xarelto 15 mg tablet Take 1 tablet every day by oral route for 90 days. Active [facility] Acyclovir 800 MG Oral Tablet acyclovir 800 mg tablet Active [facility] Aspirin 81 MG Delayed Release Oral Tablet aspirin 81 mg tablet,delayed release Take 1 tablet every day by oral route. Active [facility] Ciprofloxacin 250 MG Oral Tablet ciprofloxacin 250 mg tablet Active [facility] True Metrix Glucose Test Strip True Metrix Glucose Test Strip Take 1 strip every day by miscell. route. Active [facility] Hydroxyzine Hydrochloride 25 MG Oral Tablet hydroxyzine HCl 25 mg tablet Take 1 tablet twice a day by oral route. Do not use benadryl, loratadine or lorazepam while using this med Active [facility] Allergies, Adverse Reactions, Alerts No Known Medication Allergies Immunizations Immunization Date Given Site Status Last Updated Comments Source pneumococcal polysaccharide PPV23 08/08/2018 [facility] pneumococcal 13-valent vaccine 02/09/2017 Left deltoid completed [facility] influenza virus vaccine, inactivated 02/09/2017 Right deltoid completed [facility] pneumococcal 13-valent vaccine 02/09/2017 Left deltoid completed [facility] pneumococcal conjugate PCV 13 02/09/2017 [facility] influenza, unspecified formulation 02/09/2017 [facility] Tdap 04/11/2015 [facility] Results Order Name Results Value Reference Range Date Interpretation Comments Source Alkaline phosphatase isoenzyme [Units/volume] in Serum or Plasma alkaline phosphatase 354 40 - 115 09/19/2018 [facility] Alkaline phosphatase isoenzyme [Units/volume] in Serum or Plasma intestinal isoenzymes 19 1 - 24 09/19/2018 [facility] Alkaline phosphatase isoenzyme [Units/volume] in Serum or Plasma bone isoenzymes 22 28 - 66 09/19/2018 [facility] Alkaline phosphatase isoenzyme [Units/volume] in Serum or Plasma liver isoenzymes 59 25 - 69 09/19/2018 [facility] Alkaline phosphatase isoenzyme [Units/volume] in Serum or Plasma placental isoenzymes 0 09/19/2018 [facility] Comprehensive metabolic 1999 panel - Serum or Plasma ALT 17 0 - 55 09/13/2018 [facility] Comprehensive metabolic 1999 panel - Serum or Plasma AST 22 5 - 34 09/13/2018 [facility] Comprehensive metabolic 1999 panel - Serum or Plasma BUN 41.4 8.4 - 25.0 09/13/2018 [facility] Comprehensive metabolic 1999 panel - Serum or Plasma alk phos 382 40 - 150 09/13/2018 [facility] Comprehensive metabolic 1999 panel - Serum or Plasma glucose 256 70 - 99 09/13/2018 [facility] Comprehensive metabolic 1999 panel - Serum or Plasma albumin 3.2 3.4 - 5.1 09/13/2018 [facility] Comprehensive metabolic 1999 panel - Serum or Plasma creatinine 4.39 0.72 - 1.25 09/13/2018 critical [facility] Comprehensive metabolic 1999 panel - Serum or Plasma eGFR non- 13 09/13/2018 abnormal [facility] Comprehensive metabolic 1999 panel - Serum or Plasma total bilirubin 1.7 0.2 - 1.2 09/13/2018 high [facility] Comprehensive metabolic 1999 panel - Serum or Plasma eGFR - 16 09/13/2018 abnormal [facility] Comprehensive metabolic 1999 panel - Serum or Plasma sodium 137 135 - 145 09/13/2018 [facility] Comprehensive metabolic 1999 panel - Serum or Plasma potassium 4.4 3.5 - 5.1 09/13/2018 [facility] Comprehensive metabolic 1999 panel - Serum or Plasma chloride 96 98 - 110 09/13/2018 low [facility] metabolic 1999 panel - Serum or Plasma total protein 7.2 6.1 - 8.2 09/13/2018 [facility] Comprehensive metabolic 1999 panel - Serum or Plasma calcium 8.8 9.0 - 10.2 09/13/2018 [facility] metabolic 1999 panel - Serum or Plasma CO2 32.2 20.0 - 32.0 09/13/2018 [facility] Comprehensive metabolic 1999 panel - Serum or Plasma anion gap 9 09/13/2018 [facility] Creatine kinase [Enzymatic activity/volume] in Serum or Plasma creatine kinase (CK) 60 30 - 200 09/13/2018 [facility] Hemoglobin A1c/Hemoglobin.total in Blood Hemoglobin A1c/Hemoglobin.total in Blood 8.3 1.0 - 5.7 09/13/2018 [facility] Hemoglobin A1c/Hemoglobin.total in Blood average blood glucose 192 09/13/2018 [facility] Lipid 1995 panel - Serum or Plasma HDL 40 40 - 0 09/13/2018 [facility] Lipid 1995 panel - Serum or Plasma triglyceride 82 0 - 150 09/13/2018 [facility] Lipid 1995 panel - Serum or Plasma VLDL (calculated) 16 09/13/2018 [facility] Lipid 1996 panel - Serum or Plasma cholesterol/HDL ratio 4.1 09/13/2018 [facility] Lipid 1995 panel - Serum or Plasma non-HDL cholesterol (calculated) 124 0 - 160 09/13/2018 [facility] Lipid 1995 panel - Serum or Plasma cholesterol 164 0 - 200 09/13/2018 [facility] Lipid 1995 panel - Serum or Plasma Cholesterol in LDL [Mass/volume] in Serum or Plasma 108 0 - 130 09/13/2018 [facility] Thyrotropin [Units/volume] in Serum or Plasma TSH 2.514 0.350 - 4.940 09/13/2018 [facility] Hemoglobin A1c/Hemoglobin.total in Blood A1C w/EAG 12.6 1.0 - 5.7 03/29/2018 [facility] Hemoglobin A1c/Hemoglobin.total in Blood average blood glucose 315 03/29/2018 [facility] Comprehensive metabolic 1999 panel - Serum or Plasma ALT 16 0 - 55 03/29/2018 [facility] Comprehensive metabolic 1999 panel - Serum or Plasma AST 21 5 - 34 03/29/2018 [facility] Comprehensive metabolic 1999 panel - Serum or Plasma BUN 37.9 8.4 - 25.7 03/29/2018 [facility] Comprehensive metabolic 1999 panel - Serum or Plasma alk phos 371 40 - 150 03/29/2018 [facility] Comprehensive metabolic 1999 panel - Serum or Plasma glucose 306 70 - 99 03/29/2018 [facility] Comprehensive metabolic 1999 panel - Serum or Plasma albumin 3.1 3.5 - 5.0 03/29/2018 [facility] Comprehensive metabolic 1999 panel - Serum or Plasma creatinine 3.72 0.72 - 1.25 03/29/2018 [facility] Comprehensive metabolic 1999 panel - Serum or Plasma eGFR non- 16 03/29/2018 abnormal [facility] Comprehensive metabolic 1999 panel - Serum or Plasma total bilirubin 1.2 0.2 - 1.2 03/29/2018 [facility] Comprehensive metabolic 1999 panel - Serum or Plasma eGFR - 20 03/29/2018 abnormal [facility] Comprehensive metabolic 1999 panel - Serum or Plasma sodium 135 136 - 145 03/29/2018 [facility] Comprehensive metabolic 1999 panel - Serum or Plasma potassium 4.8 3.5 - 5.1 03/29/2018 [facility] Comprehensive metabolic 1999 panel - Serum or Plasma chloride 95 98 - 107 03/29/2018 [facility] Comprehensive metabolic 1999 panel - Serum or Plasma total protein 6.8 6.4 - 8.3 03/29/2018 [facility] Comprehensive metabolic 1999 panel - Serum or Plasma calcium 8.5 8.8 - 10.0 03/29/2018 [facility] Comprehensive metabolic 1999 panel - Serum or Plasma CO2 32.9 23.0 - 31.0 03/29/2018 [facility] Comprehensive metabolic 1999 panel - Serum or Plasma anion gap 7 03/29/2018 [facility] PSA, total 0.49 0.00 - 4.00 03/29/2018 [facility] CHEM PANEL Magnesium Lvl 2.4 1.8 [...] should be multiplied by the estimated BMI. [facility] CHEM PANEL AST 15 0 - 37 06/08/2017 [facility] CHEM PANEL Alk Phos 161 39 - 136 06/08/2017 [facility] CHEM PANEL ALT 17 0 - 65 06/08/2017 [facility] CHEM PANEL Albumin Lvl 2.4 3.5 - 5.0 06/08/2017 [facility] CHEM PANEL Bili Total 0.6 0.2 - 1.3 06/08/2017 [facility] CHEM PANEL Calcium Lvl 7.9 8.5 - 10.5 06/08/2017 [facility] CHEM PANEL CO2 23 24 - 32 06/08/2017 [facility] CHEM PANEL Total Protein 5.9 6.4 - 8.4 06/08/2017 [facility] CHEM PANEL Creatinine Lvl 3.00 0.50 - 1.40 06/08/2017 [facility] CHEM PANEL BUN 59 7 - [...] PANEL AGAP 14.6 10.0 - 20.0 06/08/2017 [facility] CHEM PANEL A/G Ratio 0.7 0.7 - 1.6 06/08/2017 [facility] HEMATOLOGY Lymphocytes 19.4 20.0 - 40.0 06/08/2017 [facility] HEMATOLOGY Monocytes 10.7 2.0 - 12.0 06/08/2017 [facility] HEMATOLOGY Segs 65.2 45.0 - 75.0 06/08/2017 [facility] HEMATOLOGY Eosinophils # 0.2 0.0 - 0.5 06/08/2017 [facility] HEMATOLOGY Monocytes # 0.6 0.0 - 0.8 06/08/2017 [facility] Lymphocytes # 1.1 1.0 - 5.5 06/08/2017 [facility] HEMATOLOGY Basophils 0.8 0.0 - 1.0 06/08/2017 [facility] Eosinophils 3.9 0.0 - 4.0 06/08/2017 [facility] Segs-Bands # 3.6 1.5 - 8.1 06/08/2017 [facility] MCV 95.2 80.0 - 94.0 06/08/2017 [facility] Hct 26.6 42.0 - 54.0 06/08/2017 [facility] MPV 9.2 7.4 - 10.4 06/08/2017 [facility] Hgb 8.8 14.0 - 18.0 06/08/2017 [facility] MCH 31.5 27.0 - 31.0 06/08/2017 [facility] RBC 2.80 4.70 - 6.10 06/08/2017 [facility] MCHC 33.1 32.0 - 36.0 06/08/2017 [facility] Platelet 151 133 - 450 06/08/2017 [facility] RDW 16.7 11.5 - 14.5 06/08/2017 [facility] WBC 5.6 3.7 - 10.4 06/08/2017 [facility] URINE AND STOOL UA Color Ltyellow 06/07/2017 [facility] URINE AND STOOL UA Urobilinogen <=1.0 mg/dL 0.1 - 1.0 06/07/2017 [facility] URINE AND STOOL UA Sq Epi None Seen 06/07/2017 [facility] URINE AND STOOL UA RBC 6 0 - 2 06/07/2017 [facility] URINE AND STOOL UA Mucus Few [...] UA Ketones Negative mg/dL Negative mg/dL 06/07/2017 [facility] URINE AND STOOL UA RBC 3 0 - 2 06/07/2017 [facility] URINE AND STOOL UA Amorph Columba Occasional /HPF None Seen /HPF 06/07/2017 [facility] URINE AND STOOL UA Mucus Few /LPF None Seen /LPF 06/07/2017 [facility] URINE AND STOOL UA Bacteria Few /HPF None Seen /HPF 06/07/2017 [facility] URINE AND STOOL UA WBC 2 0 - 5 06/07/2017 [facility] URINE AND STOOL UA Color Ltyellow 06/07/2017 [facility] URINE AND STOOL UA Sq Epi None Seen 06/07/2017 [facility] URINE AND STOOL UA Turbidity Slight *ABN* (06/07/17 3:27 AM) Clear 06/07/2017 [facility] CHEM PANEL Ammonia 37.0 <=45.0 uMol/L 06/07/2017 [facility] CHEM PANEL Lactic Acid Lvl 0.8 0.5 - 2.2 06/07/2017 [facility] CARDIAC ENZYMES CK MB Index 3.2 0.0 - 2.5 06/07/2017 [facility] CARDIAC ENZYMES Troponin-I 0.03 0.00 - 0.40 06/07/2017 [facility] CARDIAC ENZYMES Total CK 112 12 - 191 06/07/2017 [facility] CARDIAC ENZYMES CK MB 3.6 0.5 - 3.6 06/07/2017 [facility] CHEM PANEL Phosphorus 3.3 2.5 - 4.5 06/07/2017 [facility] CHEM PANEL Magnesium Lvl 2.4 1.8 - 2.4 06/07/2017 [facility] ELECTROLYTES AGAP 15.6 10.0 - 20.0 06/07/2017 [facility] ELECTROLYTES Bili Total 0.6 0.2 - 1.3 06/07/2017 [facility] ELECTROLYTES Alk Phos 186 39 - 136 06/07/2017 [facility] ELECTROLYTES B/C Ratio 20 6 - 25 06/07/2017 [facility] ELECTROLYTES A/G Ratio 0.6 0.7 - 1.6 06/07/2017 [facility] ELECTROLYTES Potassium Lvl 4.6 3.5 - 5.1 06/07/2017 [facility] ELECTROLYTES Sodium Lvl 140 135 - 145 06/07/2017 [facility] ELECTROLYTES Globulin 4.4 2.7 - 4.2 06/07/2017 [facility] ELECTROLYTES AST 19 0 - 37 06/07/2017 [facility] ELECTROLYTES Chloride Lvl 107 95 - 109 06/07/2017 [facility] ELECTROLYTES Calcium Lvl 7.8 8.5 - 10.5 06/07/2017 [facility] ELECTROLYTES CO2 22 24 - 32 06/07/2017 [facility] ELECTROLYTES ALT 22 0 - 65 06/07/2017 [facility] ELECTROLYTES Albumin Lvl 2.5 3.5 - 5.0 06/07/2017 [facility] ELECTROLYTES Total Protein 6.9 6.4 - 8.4 06/07/2017 [facility] ELECTROLYTES eGFR 19 06/07/2017 Result Comment: [...] should be multiplied by the estimated BMI. [facility] ELECTROLYTES Creatinine Lvl 3.14 0.50 - 1.40 06/07/2017 [facility] ELECTROLYTES BUN 63 7 - 22 06/07/2017 [facility] ELECTROLYTES Glucose Lvl 246 70 - 99 06/07/2017 [facility] HEMATOLOGY Segs-Bands # 7.8 1.5 - 8.1 06/07/2017 [facility] HEMATOLOGY Monocytes # 0.7 0.0 - 0.8 06/07/2017 [facility] HEMATOLOGY Lymphocytes 8.0 20.0 - 40.0 06/07/2017 [facility] HEMATOLOGY Lymphocytes # 0.7 1.0 - 5.5 06/07/2017 [facility] HEMATOLOGY Monocytes 7.3 2.0 - 12.0 06/07/2017 [facility] HEMATOLOGY Eosinophils 0.5 0.0 - 4.0 06/07/2017 [facility] Basophils 0.5 0.0 - 1.0 06/07/2017 [facility] HEMATOLOGY Segs 83.7 45.0 - 75.0 06/07/2017 [facility] MPV 9.0 7.4 - 10.4 06/07/2017 [facility] MCH 31.0 27.0 - 31.0 06/07/2017 [facility] HEMATOLOGY Hct 28.5 42.0 - 54.0 06/07/2017 [facility] HEMATOLOGY MCV 96.4 80.0 - 94.0 06/07/2017 [facility] RBC 2.96 4.70 - 6.10 06/07/2017 [facility] HEMATOLOGY Hgb 9.2 14.0 - 18.0 06/07/2017 [facility] HEMATOLOGY WBC 9.3 3.7 - 10.4 06/07/2017 [facility] HEMATOLOGY RDW 16.3 11.5 - 14.5 06/07/2017 [facility] HEMATOLOGY Platelet 137 133 - 450 06/07/2017 [facility] MCHC 32.2 32.0 - 36.0 06/07/2017 [facility] HEMATOLOGY INR 1.19 0.85 - 1.17 06/07/2017 [facility] PT 15.2 12.0 - 14.7 06/07/2017 [facility] PTT 47.7 22.9 - 35.8 06/07/2017 [facility] 25-Hydroxyvitamin D [Mass/volume] in Serum or Plasma vitamin D,25-oh,total,ia 14 30 - 100 03/15/2017 [facility] metabolic 1999 panel - Serum or Plasma glucose 512 65 - 99 03/13/2017 [facility] Comprehensive metabolic 1999 panel - Serum or Plasma urea nitrogen (BUN) 53 7 - 25 03/13/2017 [facility] Comprehensive metabolic 1999 panel - Serum or Plasma creatinine 2.38 0.70 - 1.25 03/13/2017 [facility] Comprehensive metabolic 1999 panel - Serum or Plasma eGFR non-afr. [facility] 27 > or=60 03/13/2017 [facility] Comprehensive metabolic 1999 panel - Serum or Plasma eGFR 31 > or=60 03/13/2017 [facility] Comprehensive metabolic 1999 panel - Serum or Plasma BUN/creatinine ratio 22 6 - 22 03/13/2017 [facility] Comprehensive metabolic 1999 panel - Serum or Plasma sodium 131 135 - 146 03/13/2017 [facility] Comprehensive metabolic 1999 panel - Serum or Plasma potassium 4.8 3.5 - 5.3 03/13/2017 [facility] Comprehensive metabolic 1999 panel - Serum or Plasma chloride 95 98 - 110 03/13/2017 [facility] Comprehensive metabolic 1999 panel - Serum or Plasma carbon dioxide 26 20 - 31 03/13/2017 [facility] Comprehensive metabolic 1999 panel - Serum or Plasma calcium 8.9 8.6 - 10.3 03/13/2017 [facility] Comprehensive metabolic 1999 panel - Serum or Plasma protein, total 6.6 6.1 - 8.1 03/13/2017 [facility] Comprehensive metabolic 1999 panel - Serum or Plasma albumin 3.2 3.6 - 5.1 03/13/2017 [facility] Comprehensive metabolic 1999 panel - Serum or Plasma globulin 3.4 1.9 - 3.7 03/13/2017 [facility] Comprehensive metabolic 1999 panel - Serum or Plasma albumin/globulin ratio 0.9 1.0 - 2.5 03/13/2017 [facility] Comprehensive metabolic 1999 panel - Serum or Plasma bilirubin, total 0.5 0.2 - 1.2 03/13/2017 [facility] Comprehensive metabolic 1999 panel - Serum or Plasma alkaline phosphatase 146 40 - 115 03/13/2017 [facility] Comprehensive metabolic 1999 panel - Serum or Plasma AST 11 10 - 35 03/13/2017 [facility] Comprehensive metabolic 1999 panel - Serum or Plasma ALT 9 9 - 46 03/13/2017 [facility] Lipid 1995 panel - Serum or Plasma cholesterol, total 268 <200 03/13/2017 [facility] Lipid 1995 panel - Serum or Plasma HDL cholesterol 50 >40 03/13/2017 [facility] Lipid 1995 panel - Serum or Plasma triglycerides 238 <150 03/13/2017 [facility] Lipid 1995 panel - Serum or Plasma LDL-cholesterol 178 03/13/2017 [facility] Lipid 1995 panel - Serum or Plasma chol/HDLC ratio 5.4 <5.0 03/13/2017 [facility] Lipid 1995 panel - Serum or Plasma non HDL cholesterol 218 <130 03/13/2017 [facility] Magnesium [Mass/volume] in Serum or Plasma magnesium 2.2 1.5 - 2.5 03/13/2017 [facility] Phosphate [Mass/volume] in Serum or Plasma phosphate ( phosphorus) 4.6 2.1 - 4.3 03/13/2017 [facility] Thyrotropin [Units/volume] in Serum or Plasma TSH 1.83 0.40 - 4.50 03/13/2017 [facility] Hemoglobin A1c/Hemoglobin.total in Blood hemoglobin A1C >14.0 <5.7 03/13/2017 [facility] Erythrocyte sedimentation rate by Westergren method sed rate by modified westergren 92 < or=20 03/12/2017 [facility] CBC W Auto Differential panel - Blood white blood cell count 7.5 3.8 - 10.8 03/12/2017 [facility] CBC W Auto Differential panel - Blood red blood cell count 4.35 4.20 - 5.80 03/12/2017 [facility] CBC W Auto Differential panel - Blood hemoglobin 12.9 13.2 - 17.1 03/12/2017 [facility] CBC W Auto Differential panel - Blood hematocrit 39.9 38.5 - 50.0 03/12/2017 [facility] CBC W Auto Differential panel - Blood MCV 91.7 80.0 - 100.0 03/12/2017 [facility] CBC W Auto Differential panel - Blood MCH 29.7 27.0 - 33.0 03/12/2017 [facility] CBC W Auto Differential panel - Blood MCHC 32.3 32.0 - 36.0 03/12/2017 [facility] CBC W Auto Differential panel - Blood RDW 12.2 11.0 - 15.0 03/12/2017 [facility] CBC W Auto Differential panel - Blood platelet count 281 140 - 400 03/12/2017 [facility] CBC W Auto Differential panel - Blood MPV 11.0 7.5 - 12.5 03/12/2017 [facility] CBC W Auto Differential panel - Blood absolute neutrophils 5730 1500 - 7800 03/12/2017 [facility] CBC W Auto Differential panel - Blood absolute lymphocytes 1013 850 - 3900 03/12/2017 [facility] CBC W Auto Differential panel - Blood absolute monocytes 578 200 - 950 03/12/2017 [facility] CBC W Auto Differential panel - Blood absolute eosinophils 98 15 - 500 03/12/2017 [facility] CBC W Auto Differential panel - Blood absolute basophils 83 0 - 200 03/12/2017 [facility] CBC W Auto Differential panel - Blood neutrophils 76.4 03/12/2017 [facility] CBC W Auto Differential panel - Blood lymphocytes 13.5 03/12/2017 [facility] CBC W Auto Differential panel - Blood monocytes 7.7 03/12/2017 [facility] CBC W Auto Differential panel - Blood eosinophils 1.3 03/12/2017 [facility] CBC W Auto Differential panel - Blood basophils 1.1 03/12/2017 normal [facility] CHEM PANEL Calcium Lvl 7.6 8.5 - 10.5 02/10/2017 [facility] CHEM PANEL CO2 28 24 - 32 02/10/2017 [facility] CHEM PANEL AGAP 10.5 10.0 - 20.0 02/10/2017 [facility] CHEM PANEL eGFR 30 02/10/2017 Result [...] should be multiplied by the estimated BMI. [facility] CHEM PANEL Potassium Lvl 3.5 3.5 - 5.1 02/10/2017 [facility] CHEM PANEL Chloride Lvl 106 95 - 109 02/10/2017 [facility] CHEM PANEL Sodium Lvl 141 135 - 145 02/10/2017 [facility] CHEM PANEL Creatinine Lvl 2.20 0.50 - 1.40 02/10/2017 [facility] CHEM PANEL BUN 38 7 - 22 02/10/2017 [facility] CHEM PANEL Glucose Lvl 85 70 - 99 02/10/2017 [facility] HEMATOLOGY MPV 8.0 7.4 - 10.4 02/10/2017 [facility] HEMATOLOGY Platelet 224 133 - 450 02/10/2017 [facility] HEMATOLOGY RDW 13.6 11.5 - 14.5 02/10/2017 [facility] HEMATOLOGY MCV 93.3 80.0 - 94.0 02/10/2017 [facility] HEMATOLOGY Hct 32.3 42.0 - 54.0 02/10/2017 [facility] HEMATOLOGY MCHC 34.0 32.0 - 36.0 [...] HEMATOLOGY Segs 62.8 45.0 - 75.0 02/10/2017 [facility] CHEM PANEL Bili Total 0.6 0.2 - 1.3 02/09/2017 [facility] CHEM PANEL Alk Phos 121 39 - 136 02/09/2017 [facility] CHEM PANEL Calcium Lvl 8.0 8.5 [...] Creatinine Lvl 2.33 0.50 - 1.40 02/09/2017 [facility] CHEM PANEL Sodium Lvl 140 135 - 145 02/09/2017 [facility] CHEM PANEL BUN 32 7 - 22 02/09/2017 [facility] CHEM PANEL AGAP 12.8 10.0 - 20.0 02/09/2017 [facility] CHEM PANEL Chloride Lvl 104 95 - 109 02/09/2017 [facility] CHEM PANEL CO2 27 24 - 32 02/09/2017 [facility] CHEM PANEL Glucose Lvl 262 70 - 99 02/09/2017 [facility] CHEM PANEL eGFR 28 02/09/2017 Result [...] should be multiplied by the estimated BMI. [facility] CARDIAC ENZYMES CK MB Index 3.8 0.0 - 2.5 02/08/2017 [facility] CARDIAC ENZYMES Troponin-I 0.05 0.00 - 0.40 02/08/2017 [facility] CARDIAC ENZYMES CK MB 3.1 0.5 - 3.6 02/08/2017 [facility] CARDIAC ENZYMES Total CK 81 12 - 191 02/08/2017 [facility] ELECTROLYTES AGAP 9.3 10.0 - 20.0 02/08/2017 [facility] ELECTROLYTES eGFR 26 02/08/2017 Result Comment: [...] should be multiplied by the estimated BMI. [facility] ELECTROLYTES CO2 29 24 - 32 02/08/2017 [facility] ELECTROLYTES Chloride Lvl 105 95 - 109 02/08/2017 [facility] ELECTROLYTES Calcium Lvl 8.2 8.5 - 10.5 02/08/2017 [facility] ELECTROLYTES Glucose Lvl 78 70 - 99 02/08/2017 [facility] ELECTROLYTES BUN 29 7 - 22 02/08/2017 [facility] ELECTROLYTES Creatinine Lvl 2.50 0.50 - 1.40 02/08/2017 [facility] ELECTROLYTES Sodium Lvl 140 135 - 145 02/08/2017 [facility] ELECTROLYTES Potassium Lvl 3.3 3.5 - 5.1 02/08/2017 [facility] HEMATOLOGY Basophils 0.6 0.0 - 1.0 02/08/2017 [facility] HEMATOLOGY Eosinophils 0.2 0.0 - 4.0 02/08/2017 [facility] HEMATOLOGY Lymphocytes # 0.7 1.0 - 5.5 02/08/2017 [facility] HEMATOLOGY Segs-Bands # 8.2 1.5 - 8.1 02/08/2017 [facility] HEMATOLOGY Basophils # 0.1 0.0 - 0.2 02/08/2017 [facility] HEMATOLOGY Monocytes # 0.5 0.0 - 0.8 02/08/2017 [facility] HEMATOLOGY Lymphocytes 7.0 20.0 - 40.0 02/08/2017 [facility] HEMATOLOGY Segs 86.6 45.0 - 75.0 02/08/2017 [facility] HEMATOLOGY Monocytes 5.6 2.0 - 12.0 02/08/2017 [facility] HEMATOLOGY PTT 37.1 22.9 - 35.8 02/08/2017 [facility] HEMATOLOGY PT 13.3 12.0 - 14.7 02/08/2017 [facility] HEMATOLOGY INR 1.01 0.85 - 1.17 02/08/2017 [facility] HEMATOLOGY MCHC 33.2 32.0 - 36.0 02/08/2017 [facility] HEMATOLOGY RBC 3.83 4.70 - 6.10 02/08/2017 [facility] HEMATOLOGY WBC 9.4 3.7 - 10.4 02/08/2017 [facility] Hgb 11.9 14.0 - 18.0 02/08/2017 [facility] Platelet 251 133 - 450 02/08/2017 [facility] RDW 13.6 11.5 - 14.5 02/08/2017 [facility] MPV 8.4 7.4 - 10.4 02/08/2017 [facility] MCV 93.7 80.0 - 94.0 02/08/2017 [facility] Hct 35.9 42.0 - 54.0 02/08/2017 [facility] MCH 31.1 27.0 - 31.0 02/08/2017 [facility] LIPIDS Chol 303 <=199 mg/dL 02/08/2017 [facility] LIPIDS HDL 56 >=61 mg/dL 02/08/2017 [facility] LIPIDS VLDL 27 02/08/2017 [facility] LIPIDS LDL (Calculated) 220 <=99 mg/dL 02/08/2017 [facility] LIPIDS Trig 133 <=149 mg/dL 02/08/2017 [facility] LIPIDS CHD Risk 5.41 4.00 - 7.30 02/08/2017 [facility] SPECIAL CHEMISTRY Hgb A1C 12.9 <=5.6 % 02/08/2017 [facility] Pathology Reports No Data Provided for [...] speech pathology report for further details. SL: [id number] 06/08/2017 [facility] Brain wo contrast CT Clinical Indication: [...] chronic microvascular ischemic changes. SL: KPATEL-M 06/07/2017 [facility] Spine cervical wo contrast CT Clinical [...] acute fractures or subluxations. SL: KPATEL-M 06/07/2017 [facility] Pelvis AP DX Clinical Indication: Status [...] within the visualized spine. SL: UMMTEL-M 06/07/2017 [facility] Chest 1view DX EXAM: Chest x-ray [...] evidence of pulmonary edema. SL: UKJOHN-Emilie 06/07/2017 [facility] Retroperitoneal Complete US Clinical Indication: - [...] 1. Unremarkable renal U/S SL: SROSENBLUM-PC 02/09/2017 [facility] Esophagus BA swallow function video DX Patient Name: EDWIGE HORVATH : 1950; Age: 66 years Male MR: [id number] Study: Esophagus BA swallow function video DX [...] penetration with deep penetration on partial volumes. [place] consistency barium: Flash penetration. Pudding coated barium: No aspiration or any significant laryngeal penetration. Barium with cracker preparation: No aspiration or any significant laryngeal penetration. SL: [id number] 02/09/2017 [facility] contrast MRI Clinical Indication: Slurred speech and [...] disease changes/small vessel disease. SL: KPATEL-M 02/09/2017 [facility] contrast MRA Clinical Indication: Patient complained of slurred speech and unsteady gait since this morning. Stroke Comparison: CT head 02/08/2017. Technique: Magnetic resonance angiography of the [place] of [place] was performed without contrast. 3D [...] hypoplasia or severe stenosis. SL: KPANESS 02/09/2017 [facility] Neck wo contrast MRA Clinical Indication: [...] or left vertebral arteries. SL: KPANESS 02/09/2017 [facility] Brain contrast CT Study: Brain wo [...] skull is intact. Mild left frontal and [id number] bilateral ethmoid air cell opacification is present. [...] would be recommended for further assessment. SL: [id number] 02/08/2017 [facility] Brain wo contrast CT I have been advised from the scanning technologist from [facility] that the incorrect name was applied to this examination and should be disregarded. A report will be faxed to the [facility] Emergency Department. Clinical Indication: ct fpl389.80 - right sided drift, slurred speech, woke [...] hemorrhage. Report will be faxed to the [facility] Emergency Department following the dictation at 5:23 PM SL: [id number] 02/08/2017 [facility] Chest 1view DX Chest 1view DX [...] of acute cardiopulmonary disease. SL: SSMILEY-MEGA 02/08/2017 [facility] Consultation Notes No Data Provided for This Section Discharge Summaries No Data Provided for This Section History and Physicals No Data Provided for This Section Vital Signs Vital Sign Value Date Comments Source Diastolic (mm Hg) 50 10/10/2018 [facility] Height 69 10/10/2018 [facility] Systolic (mm Hg) 110 10/10/2018 [facility] Weight 188 10/10/2018 [facility] Diastolic (mm Hg) 68 09/12/2018 [facility] [...] [facility] Diastolic (mm Hg) 91 06/09/2017 [facility] Temperature Oral (F) 98.3 F 06/09/2017 [facility] Systolic (mm Hg) 173 06/08/2017 [facility] Diastolic (mm Hg) 82 06/08/2017 [facility] Heart Rate 60 06/08/2017 [facility] Respitory Rate 16 06/08/2017 [facility] Temperature Oral (F) 98.1 F 06/08/2017 [facility] Heart Rate 60 06/08/2017 [facility] Respitory Rate 16 06/08/2017 [facility] Systolic (mm Hg) 173 06/08/2017 [facility] Diastolic (mm Hg) 82 06/08/2017 [facility] Temperature Oral (F) 98.1 F 06/08/2017 [...] [facility] Systolic (mm Hg) 153 02/11/2017 [facility] Diastolic (mm Hg) 77 02/11/2017 [facility] Temperature Oral (F) 98.0 F 02/11/2017 [facility] Respitory Rate 16 02/11/2017 [facility] Heart Rate 60 02/11/2017 [facility] Respitory Rate 16 02/11/2017 [facility] Systolic (mm Hg) 157 02/11/2017 [facility] Diastolic (mm Hg) 80 02/11/2017 [facility] Heart Rate 57 02/11/2017 [facility] Temperature Oral (F) 98.1 F 02/11/2017 [facility] Heart Rate 58 02/11/2017 [facility] Respitory Rate 16 02/11/2017 [facility] Temperature Oral (F) 97.8 F 02/11/2017 [facility] Systolic (mm Hg) 121 02/11/2017 [facility] Diastolic (mm Hg) 61 02/11/2017 [facility] BMI Calculated 28.49 02/09/2017 [facility] Height 175.26 cm 02/09/2017 [facility] Weight 87.5 02/09/2017 [facility] BMI Calculated 33.07 02/08/2017 [facility] Weight 104.545 02/08/2017 [facility] Height 177.8 cm 02/08/2017 [facility] Encounters Location Location Details Encounter Type Encounter Number Reason For Visit Attending Provider ADM Date DC Date Status Source [facility] Observation [id number] Sanya Kumar 02/08/2017 02/11/2017 [facility] - Care Management Анна Novoa: [address], [address], [place] [address], Ph. [id number] Анна Novoa 03/08/2017 [facility] Ramonita Allan MD: [address] [place] [address], Ph. [id number] Ramonita Allan 03/11/2017 [facility] Ramonita Allan MD: [address] [place] [address], Ph. [id number] Ramonita Allan 03/22/2017 [facility] Practice - Care Management [facility]: [address], [address], [place] [address], Ph. [id number] [facility] 04/06/2017 [facility] Ramonita Allan MD: [address] [place] [address], Ph. [id number] Ramonita Allan 04/12/2017 [facility] Practice - Care [facility]: [address], [address], [place] [address], Ph. [id number] [facility] 04/21/2017 [facility] Practice - Care Management Анна Novoa: [address], [address], [place] [address], Ph. [id number] Анна Novoa 05/02/2017 [facility] Ramonita Allan MD: [facility] [place] [address], Ph. [id number] Ramonita Allan 05/10/2017 [facility] - Care Management Анна Novoa: [address], [address], [place] [address], Ph. [id number] Анна Novoa 05/11/2017 [facility] Joseph Miller MD: [address] [place] [address], Ph. [id number] Joseph Miller 05/18/2017 [facility] Ramonita Allan MD: [facility] [place] [address], Ph. [id number] Ramonita Allan 05/24/2017 [facility] - Care Management Анна Novoa: [address], [address], [place] [address], Ph. [id number] Анна Novoa 05/25/2017 [facility] - Care Management Анна Novoa: [address], [address], [place] [address], Ph. [id number] Анна Novoa 06/01/2017 [facility] Observation [id number] April Arthur 06/07/2017 06/09/[address] [facility] Practice - Care Management Анна Novoa: [address], [address], [place] [address], Ph. [id number] Анна Novoa 06/15/2017 [facility] Ramonita Allan MD: [address] [place] [address], Ph. [id number] Ramonita Allan 03/28/2018 [facility] Ramonita Allan MD: [address] [place] [address], Ph. [id number] Ramonita Allan 04/25/2018 [facility] Ramonita Allan MD: [address] [place] [address], Ph. [id number] Ramonita Allan 04/25/2018 [facility] Ramonita Allan MD: [address] [place] [address], Ph. [id number] Ramonita Allan 04/25/2018 [facility] MD: [address] [place] [address], Ph. [id number] Ramonita Allan 05/23/2018 [facility] Ramonita Allan MD: [facility] [place] [address], Ph. [id number] Ramonita Allan 05/23/2018 [facility] Ramonita Allan MD: [address] [place] [address], Ph. [id number] Ramonita Allan 07/11/2018 [facility] Ramonita Allan MD: [address] [place] [address], Ph. [id number] Ramonitaconsuelo Allan 07/11/2018 [facility] Departed Emergency Room [id number] EDUARDO DEL CID MD 07/26/2018 07/26/2018 [facility] Ramonita Allan MD: [address] [place] [address], Ph. [id number] Ramonita Allan 08/08/2018 [facility] Ramonita Allan MD: [address] [place] [address], Ph. [id number] Ramonita Allan 08/08/2018 [facility] Ramonita Allan MD: [address] [place] [address], Ph. [id number] Ramonita Allan 09/12/2018 [facility] Ramonita Allan MD: [address] [place] [address], Ph. [id number] Ramonita Allan 09/12/2018 [facility] Ramonita Allan MD: [address] [place] [address], Ph. [id number] Ramonitaconsuelo Allan 10/10/2018 [facility] Procedures Procedure Code Date Perfomer Comments Source Pacemaker 07/07/2018 [facility] Fistula Cannulation Set, Ea [id number] 06/09/2017 [facility] Other 04/11/2017 [facility] Amputation 04/11/2005 [facility] Amputation 04/11/2004 [facility] Stent placement [id number] [facility] Assessment and Plan Assessment and Plan [...] Note - Daily [facility] Completed: Feb, 09:03 by Maria Isabel Crespo [...] intact ftn, hts Abnormal movements: none Coordination [id number] is intact Gait patient stood up and [...] mg PO Q4H 02/08/17 bisacodyl 10 mg FL Daily 02/08/17 glucagon 1 mg IM PRN [...] expect 1 midnight stay for now 02/11/2017 [facility] Plan of Care Plan of Care Date Source Discharge Date 07/26/18 8:29pm Disposition LEFT AFTER MEDICAL SCREENING Condition at Discharge Other Forms Provided Work/School Excuse Prescriptions See Medication Section 07/26/2018 [facility] Social History Social History Date Source Social [...] Not Applicable Not Applicable 07/26/2018 [facility] Social History TypeResponse Smoking Status Never smoker; Previous treatment: None; Ready to change: No; Concerns about tobacco use in household: No; Exposure to Tobacco Smoke None; Cigarette Smoking Last 365 Days No; Reg Smoking Cessation Counseling No entered on: 06/07/17 06/07/2017 [facility] Smoking Status Former Smoker (1 PPW) 03/11/2017 [facility] Family History No Data Provided for This Section Advance Directives Order Name Results Value Date Source Advance Directives Advance Directives Directive Response Recorded Date/Time Does the patient have an advance directive? No 05/27/17 4:15pm If yes, is advance directive on file with [facility]? No 05/27/17 4:15pm If not on file with [facility] will patient provide a copy? No 05/27/17 4:15pm 07/26/2018 [facility] Functional Status No Data Provided for This Section
--- NOTE | 2018-11-03 21:57 | Diagnostic Imaging Report ---
Bilateral knees - 3 view(s) each HISTORY: Pain COMPARISON: None available. FINDINGS: Right: No displaced fracture. The osseous alignment is within normal limits. Mild medial and patellofemoral joint space narrowing. Left: No displaced fracture. The osseous alignment is within normal limits. Mild medial compartment joint space narrowing. Metallic density overlying soft tissues of the distal anterior thigh. Bilateral vascular calcifications. IMPRESSION: No acute radiographic abnormality. Signed by: Dr. Nicolas Fields MD on 11/03/2018 9:54 PM
[2018-11-03 22:13] VITALS: BP 122/74
== END 2018-11-03 22:25 | disposition home or self-care (01) ==
LOC: ER 20:10
DX: M17.0 Bilateral primary osteoarthritis of knee (principal); I12.0 Hypertensive chronic kidney disease with stage 5 chronic kidney disease or end stage renal disease; N18.6 End stage renal disease; Z99.2 Dependence on renal dialysis; E78.5 Hyperlipidemia, unspecified; K21.9 Gastro-esophageal reflux disease without esophagitis; Z95.810 Presence of automatic (implantable) cardiac defibrillator; Z98.61 Coronary angioplasty status
CPT/HCPCS: 99283

== ENCOUNTER 2018-12-31 14:55 | Observation (INO) | payer OTHER ==
[~2018-12-31] VITALS: Ht 154.7 cm; Wt 84.4 kg
--- OUTSIDE RECORDS SUMMARY | 2018-12-31 15:00 | XMS REPORT | Continuity of Care Document ---
Author Author [employer] Organization [employer] Address Unknown Phone Unavailable Care Team Providers Care [place] Tanner Name Role Phone [employer] Unavailable Unavailable Problems Problem Status Onset Date Classification Date Reported Comments Source Open wound of lower leg 10/11/2018 Diagnosis 10/11/2018 [facility] Coronary arteriosclerosis 10/11/2018 Diagnosis 10/11/2018 [facility] Peripheral vascular disease 10/11/2018 Diagnosis 10/11/2018 [facility] Hospital patient 10/11/2018 Diagnosis 10/11/2018 [facility] Amputated big toe 10/10/2018 Diagnosis 10/11/2018 [facility] Onychomycosis of toenails 10/10/2018 Diagnosis 10/11/2018 [facility] Pruritus of skin 10/10/2018 Diagnosis 10/11/2018 [facility] Amputated Big Toe 10/10/2018 Problem 10/11/2018 [facility] Deep venous thrombosis of upper extremity 09/13/2018 Diagnosis 10/11/2018 [facility] Abnormal Gait Due to Muscle Weakness 09/13/2018 Problem 10/11/2018 [facility] Abnormal gait due to muscle weakness 09/12/2018 Diagnosis 10/11/2018 [facility] Congestive heart failure 09/12/2018 Diagnosis 10/11/2018 [facility] End stage renal failure on dialysis 09/12/2018 Diagnosis 10/11/2018 [facility] Body mass index 25-29 - overweight 09/12/2018 Diagnosis 10/11/2018 [facility] Productive cough 09/12/2018 Diagnosis 10/11/2018 [facility] Type II diabetes mellitus uncontrolled 09/12/2018 Diagnosis 10/11/2018 [facility] Carpal Tunnel Syndrome 08/27/2018 Problem 10/11/2018 [facility] Diabetic neuropathy 08/09/2018 Diagnosis 08/09/2018 [facility] Stented coronary artery 08/09/2018 Diagnosis 08/09/2018 [facility] Deep Venous Thrombosis of Upper Extremity 08/09/2018 Problem 10/11/2018 [facility] Screening for malignant neoplasm of colon 08/08/2018 Diagnosis 08/09/2018 [facility] Immunization 08/08/2018 Diagnosis 08/09/2018 [facility] Screening for osteoporosis 08/08/2018 Diagnosis 08/09/2018 [facility] Essential hypertension 07/11/2018 Diagnosis 08/09/2018 [facility] History of cerebrovascular accident 07/11/2018 Diagnosis 08/09/2018 [facility] Chronic obstructive lung disease 05/23/2018 Diagnosis 06/09/2018 [facility] Angina pectoris 05/23/2018 Diagnosis 06/09/2018 [facility] Senile purpura 05/23/2018 Diagnosis 06/09/2018 [facility] Tinea cruris 05/23/2018 Diagnosis 06/09/2018 [facility] Skin lesion 05/23/2018 Diagnosis 06/09/2018 [facility] Immunization refused 05/23/2018 Diagnosis 06/09/2018 [facility] History of smoking 05/23/2018 Diagnosis 05/23/2018 [facility] Adult health examination 04/25/2018 Diagnosis 06/09/2018 [facility] Benign prostatic hyperplasia 04/25/2018 Diagnosis 06/09/2018 [facility] Incontinence of feces 04/25/2018 Diagnosis 06/09/2018 [facility] Seasonal allergic rhinitis 04/25/2018 Diagnosis 06/09/2018 [facility] Advance directive discussed with patient 04/25/2018 Diagnosis 06/09/2018 [facility] Depression screening 04/25/2018 Diagnosis 06/09/2018 [facility] End Stage Renal Failure on Dialysis 12/13/2017 Problem 10/11/2018 [facility] Acute kidney failure, unspecified 06/17/2017 09/14/2017 [facility] FALL Active 06/07/2017 [facility] CHAI, GENERALIZED WEAKNESS Active 06/07/2017 [facility] Hypoglycemic state in diabetes 05/26/2017 Diagnosis 07/09/2017 [facility] Hypoglycemic State in Diabetes 05/26/2017 Problem 10/11/2018 [facility] Dyspnea at rest 05/10/2017 Diagnosis 07/09/2017 [facility] Benign Prostatic Hyperplasia 04/13/2017 Problem 10/11/2018 [facility] Cough 04/12/2017 Diagnosis 07/09/2017 [facility] Hypertensive disorder 04/12/2017 Diagnosis 07/09/2017 [facility] Acid reflux 04/12/2017 Diagnosis 07/09/2017 [facility] Type 2 diabetes mellitus 04/12/2017 Diagnosis 07/09/2017 [facility] Chronic kidney disease 03/24/2017 Diagnosis 07/09/2017 [facility] Hypotensive episode 03/24/2017 Diagnosis 07/09/2017 [facility] Altered mental status 03/24/2017 Diagnosis 07/09/2017 [facility] History of Cerebrovascular Accident 03/21/2017 Problem 10/11/2018 [facility] Type II Diabetes Mellitus Uncontrolled 03/19/2017 Problem 10/11/2018 [facility] Diabetic Neuropathy 03/19/2017 Problem 10/11/2018 [facility] Essential Hypertension 03/19/2017 Problem 10/11/2018 [facility] Congestive Heart Failure 03/19/2017 Problem 10/11/2018 [facility] Peripheral Vascular Disease 03/19/2017 Problem 10/11/2018 [facility] Chronic Kidney Disease 03/19/2017 Problem 10/11/2018 [facility] Stented Coronary Artery 03/19/2017 Problem 10/11/2018 [facility] Cerebrovascular Accident 03/19/2017 Problem 07/09/2017 [facility] Diabetic peripheral neuropathy 03/11/2017 Diagnosis 07/09/2017 [facility] Chronic kidney disease stage 3 03/11/2017 Diagnosis 07/09/2017 [facility] Cerebrovascular accident 03/11/2017 Diagnosis 07/09/2017 [facility] Mixed hyperlipidemia due to type 2 diabetes mellitus 03/11/2017 Diagnosis 07/09/2017 [facility] At risk for falls 03/11/2017 Diagnosis 07/09/2017 [facility] STROKE-LIKE SYMPTOMS Active 02/08/2017 [facility] SLURRED SPEECH/ GAIT ABNORMALITY Active 02/08/2017 [facility] Hematuria Active 04/01/2015 Problem 07/27/2018 [place] [...] without complications 09/14/2017 [facility] Hyperlipidemia, unspecified 09/14/2017 [facility] Atherosclerotic heart disease of [place] coronary artery without angina pectoris 09/14/2017 [facility] Personal history of transient ischemic attack , and cerebral infarction without residual deficits 09/14/2017 [facility] Personal history of nicotine dependence 09/14/2017 [facility] long term acute care registered nurse use of aspirin 09/14/2017 [facility]CI use of insulin 09/14/2017 [facility] CHF exacerbation Active Problem 07/27/2018 [facility] CKD Active Problem 07/27/2018 [facility] Chest pain Active Problem 07/27/2018 [facility] Febrile illness Active Problem 07/27/2018 [facility] Hyperkalemia Active Problem 07/27/2018 [facility] Hyperlipidemia Problem 10/11/2018 [facility] ACUTE KIDNEY FAILURE, UNSPECIFIED Active [facility] WEAKNESS Active [facility] Medications Medication Details Route Status Patient Instructions Ordering Provider Order Date Source Morphine 2 mg, 1 mL, Route: IVP, Drug form: INJ, Q4H, Dosing Weight 95.597, kg, PRN Pain Score 7-10, Start date: 06/08/17 10:32:00 ARBOREAL SCIENTIST, Duration: 30 day, Stop date: 07/08/17 10:31:00 CDTNotes: (Same as:MORPhine Sulfate) Inactive 06/08/2017 [facility] Hydralazine 10 mg, 0.5 mL, Route: IVP, Drug form: INJ, Q4H, Dosing Weight 95.597, kg, PRN Elevated BP, Start date: 06/08/17 10:09:00 ARBOREAL SCIENTIST, Duration: 30 day, Stop date: 07/08/17 10:08:00 CDTNotes: (Same as: Joseph line) Push over 5 minutes Inactive 06/08/2017 [facility] Saline Flush 0.9% 10 ml, Route: IVP, Drug Form: INJ, Dosing Weight 95.597, kg, Q12H, Start date: 06/07/17 21:00:00 ARBOREAL SCIENTIST, Duration: 30 day, Stop date: 07/07/17 9:00:00 CDTNotes: (Same as: BD Posiflush) No Longer Active 06/08/2017 [facility] atorvastatin 80 mg, 2 tab, Route: PO, Drug form: TAB, Bedtime, Dosing Weight 95.597, kg, Start date: 06/07/17 21:00:00 ARBOREAL SCIENTIST, Duration: 30 day, Stop date: 07/06/17 21:00:00 CDTNotes: (Same as: Lipitor) No Longer Active 06/08/2017 [facility] Acyclovir 750 mg, Route: IV, Drug form: PDR/INJ, [id number], Dosing Weight 95.597, kg, Start date: 06/07/17 21:00:00 ARBOREAL SCIENTIST, Duration: 7 day, Stop date: 06/13/17 21:00:00 CSTNotes: (Same as: Zovirax) For adult patients only: Round to nearest 50 mg per Medical Staff approval MEDICATION WASTE Product Size: 500 mg Product Wasted: 250 mg No Longer Active 06/08/2017 [facility] Morphine 4 mg, 1 mL, Route: IVP, Drug form: SOLN, Q4H, Dosing Weight 95.597, kg, PRN Pain Score 7-10, Start date: 06/07/17 20:16:00 ARBOREAL SCIENTIST, Duration: 30 day, Stop date: 07/07/17 20:15:00 CDTNotes: (Same as:MORPhine Sulfate) No Longer Active 06/08/2017 [facility] heparin 5,000 unit, 1 mL, Route: SUB-Q, Drug form: INJ, Q8H-06, Dosing Weight 95.597, kg, (For patients weighing Notes: porcine heparin No Longer Active 06/07/2017 [facility] valacyclovir 1,000 mg, 2 tab, Route: PO, Drug form: TAB, [id number], Dosing Weight 95.597, kg, Priority: NOW, Start date: 06/07/17 10:47:00 ARBOREAL SCIENTIST, Duration: 7 day, Stop date: 06/13/17 10:47:00 CSTNotes: (Same As: Valtrex) Inactive 06/07/2017 [facility] Aspirin 300 MG Rectal Suppository 300 mg, 1 supp, Route: [place], Drug form: SUPP, ONCE, Dosing Weight 95.597, kg, Priority: NOW, Start date: 06/07/17 10:40:00 ARBOREAL SCIENTIST, Stop date: 06/07/17 10:40:00 CSTNotes: Refrigerate. Inactive 06/07/2017 [facility] Aspirin 81 MG Enteric Coated Tablet 81 mg, 1 tab, Route: PO, Drug form: ECTAB, Q24H, Dosing Weight 95.597, kg, Start date: 06/07/17 10:00:00 ARBOREAL SCIENTIST, Duration: 30 day, Stop date: 07/06/17 10:00:00 CDTNotes: Do not crush or chew. (Same As: Ecotrin) No Longer Active 06/07/2017 [facility] Glucagon 1 mg, Route: IM, Drug form: PDR/INJ, PRN, Dosing Weight 95.597, kg, PRN Blood Glucose Results, Start date: 06/07/17 9:48:00 ARBOREAL SCIENTIST, Duration: 30 day, Stop date: 07/07/17 10:47:00 CDT No Longer Active 06/07/2017 [facility] Dextrose 50% Syringe 25 gm, 50 mL, Route: IVP, Drug Form: INJ, Dosing Weight 95.597, kg, PRN, PRN Blood Glucose Results, Start date: 06/07/17 9:48:00 ARBOREAL SCIENTIST, Duration: 30 day, Stop date: 07/07/17 10:47:00 CDT No Longer Active 06/07/2017 [facility] Insulin Lispro 4 unit, 0.04 mL, Route: SUB-Q, Drug form: SOLN, Sliding Scale, Dosing Weight 95.597, kg, PRN Blood Glucose Results, Start date: 06/07/17 9:48:00 ARBOREAL SCIENTIST, Duration: 30 day, Stop date: 07/07/17 10:47:00 CDTNo naldo: (Same as: Humalog ) Roll in palms of hands gently; Do not shake `vigorously. "Single Patient Use Only " WASTE: F/P - Black; E - [employer] Trash Bin Stable for 28 days at room temperature. Expires in days from Date No Longer Active 06/07/2017 [facility] Saline Flush 0.9% 10 ml, Route: IVP, Drug Form: INJ, Dosing Weight 95.597, kg, PRN, PRN Line Flush, Start date: 06/07/17 9:47:00 ARBOREAL SCIENTIST, Duration: 30 day, Stop date: 07/07/17 10:46:00 CDTNotes: (Same as: BD Posiflush) No Longer Active 06/07/2017 [facility] Saline Flush 0.9% 10 ml, Route: IVP, Drug Form: INJ, Dosing Weight 87.5, kg, PRN, PRN Line Flush, Start date: 06/07/17 7:07:00 ARBOREAL SCIENTIST, Duration: 30 day, Stop date: 07/07/17 8:06:00 CDTNotes: (Same as: BD Posiflush) No Longer Active 06/07/2017 [facility] Sodium Chloride 0.9% IV 1,000 mL 1,000 mL, Rate: 125 ml/hr, Infuse over: 8 hr, Route: IV, Dosing Weight 87.5 kg, Total Volume: 1,000, Start date: 06/07/17 7:07:00 ARBOREAL SCIENTIST, Duration: 30 day, Stop date: 07/07/17 7:06:00 CDT, 2.08, m2 No Longer Active 06/07/2017 [facility] Ondansetron 4 mg, 2 mL, Route: IVP, Drug form: INJ, Q6H, Dosing Weight 87.5, kg, PRN Nausea & Vomiting, Start date: 06/07/17 7:07:00 ARBOREAL SCIENTIST, Duration: 30 day, Stop date: 07/07/17 7:06:00 CDTNotes: (Same as: Zofran) MEDICATION WASTE Product Size: 4 mg Product Wasted: ___ mg No Longer Active 06/07/2017 [facility] Acetaminophen 650 mg, 2 tab, Route: PO, Drug form: TAB, Q4H, Dosing Weight 87.5, kg, PRN Pain 1-3/Temp > 100.4 F, Start date: 06/07/17 7:07:00 ARBOREAL SCIENTIST, Duration: 30 day, Stop date: 07/07/17 7:06:00 CDTNotes: Do not ex ceed 4 gm/day. (Same as: Tylenol) No Longer Active 06/07/2017 [facility] Sodium Chloride 0.9% IV 1,000 mL 1,000 mL, Rate: 75 ml/hr, Infuse over: 13.3 hr, Route: IV, Dosing Weight 87.5 kg, Total Volume: 1,000, Start date: 06/07/17 6:02:00 ARBOREAL SCIENTIST, Duration: 30 day, Stop date: 07/07/17 6:01:00 CDT, 2.08, m2 Inactive 06/07/2017 [facility] Insulin Glargine (Lantus 3ML Pen) 100 Units/1 Ml Inj, 20 Bedtime Active 05/28/2017 [facility] Insulin Glargine (Lantus) 100 Units/Ml Ml, 34 Units Sub-Q Bedtime Active 05/28/2017 [facility] Amoxicillin 875 MG / Clavulanate 125 MG Oral Tablet amoxicillin 875 mg-potassium clavulanate 125 mg tablet Active 05/24/2017 [facility] Azithromycin 250 MG Oral Tablet azithromycin 250 mg tablet Active 05/10/2017 [facility] benzonatate 200 MG Oral Capsule benzonatate 200 mg capsule Take 1 capsule 3 times a day by oral route for 10 days. Active 05/10/2017 [facility] Infinity Meter Kit Infinity Meter Kit Active 05/10/2017 [facility] lancing device lancing device Active 05/10/2017 [facility] 3 ML Insulin Glargine 100 UNT/ML Pen Injector [Lantus] Lantus Solostar U-100 Insulin 100 unit/mL (3 mL) subcutaneous pen 20 units at bedtime Active 05/10/2017 [facility] True Metrix Glucose Test Strip True Metrix Glucose Test Strip use 4 times a day Active 05/10/2017 [facility] Clindamycin 150 MG Oral Capsule clindamycin HCl 150 mg capsule 2 capsules every 6 hrs Active 04/12/2017 [facility] gabapentin 300 MG Oral Capsule gabapentin 300 mg capsule Take 1 capsule twice a day by oral route. Active 04/12/2017 [facility] Lisinopril 20 MG Oral Tablet lisinopril 20 mg tablet Take 1 tablet twice a day by oral route. Active 04/12/2017 [facility] Metolazone 2.5 MG Oral Tablet metolazone 2.5 mg tablet Take 1 tablet twice a day by oral route. Active 04/12/2017 [facility] Regular Insulin, Human 100 UNT/ML Injectable Solution [Novolin R] Novolin R Regular U-100 Insulin 100 unit/mL injection solution Active 04/12/2017 [facility] Pentoxifylline 400 MG Extended Release Oral Tablet pentoxifylline ER 400 mg tablet,extended release Take 1 tablet 3 times a day by oral route. Active 04/12/2017 [facility] Microencapsulated Potassium Chloride 10 MEQ Extended Release Oral Tablet potassium chloride ER 10 mEq tablet,extended release(part/cryst) Take 1 tablet twice a day by oral route. Active 04/12/2017 [facility] Acetaminophen 300 MG / Codeine Phosphate 30 MG Oral Tablet acetaminophen 300 mg-codeine 30 mg tablet Active 03/11/2017 [facility] Cephalexin 500 MG Oral Capsule cephalexin 500 mg capsule Active 03/11/2017 [facility] Ciprofloxacin 500 MG Oral Tablet ciprofloxacin 500 mg tablet Take 1 tablet twice a day by oral route. Active 03/11/2017 [facility] Doxepin Hydrochloride 50 MG/ML Topical Cream doxepin 5 % topical cream Active 03/11/2017 [facility] gabapentin 100 MG Oral Capsule gabapentin 100 mg capsule Active 03/11/2017 [facility] gatifloxacin 5 MG/ML Ophthalmic Solution gatifloxacin 0.5 % eye drops Active 03/11/2017 [facility] Ketorolac Tromethamine 5 MG/ML Ophthalmic Solution ketorolac 0.5 % eye drops Active 03/11/2017 [facility] Levofloxacin 250 MG Oral Tablet levofloxacin 250 mg tablet Active 03/11/2017 [facility] Mupirocin 0.02 MG/MG Topical Ointment mupirocin 2 % topical ointment Active 03/11/2017 [facility] prednisolone acetate 10 MG/ML Ophthalmic Suspension prednisolone acetate 1 % eye drops,suspension Active 03/11/2017 [facility] Sulfamethoxazole 800 MG / Trimethoprim 160 MG Oral Tablet sulfamethoxazole 800 mg-trimethoprim 160 mg tablet Active 03/11/2017 [facility] tramadol hydrochloride 50 MG Oral Tablet tramadol 50 mg tablet Active 03/11/2017 [facility] TRUEplus Lancets 28 gauge TRUEplus Lancets 28 gauge Active 03/11/2017 [facility] Acetaminophen With Codeine (Tylenol With Codeine [...] # 10 mL, 0 Refill(s), Pharmacy: [facility] [id number] Active 02/11/2017 [facility] pneumococcal 13-valent vaccine 0.5 mL, Route: IM, Drug Form: INJ, Daily, Start date: 02/09/17 9:00:00 CDT, Duration: 1 doses or times, Stop date: 02/09/17 9:00:00 CDTNotes: Shake well prior to use (Same as: Prevnar 13) Inactive 02/09/2017 [facility] metolazone 2.5 mg oral tablet 2.5 mg, 1 tab, Route: PO, Drug form: TAB, BID, Dosing Weight 87.5, kg, Start date: 02/09/17 9:00:00 CDT, Duration: 30 day, Stop date: 03/10/17 17:00:00 CSTNotes: (Same as: Zaroxolyn) No Longer Active 02/09/2017 [facility] lisinopril 20 mg, Route: PO, Drug form: TAB, BID, Dosing Weight 87.5, kg, Start date: 02/09/17 9:00:00 CDT, Duration: 30 day, Stop date: 03/10/17 17:00:00 ARBOREAL SCIENTIST Inactive 02/09/2017 [facility] gabapentin 300 mg oral capsule 300 mg, 1 cap, Route: PO, Drug form: CAP, Q12H, Dosing Weight 87.5, kg, Start date: 02/09/17 9:00:00 CDT, Duration: 30 day, Stop date: 03/10/17 21:00:00 CSTNotes: (Same as: Neurontin) No Longer Active 02/09/2017 [facility] influenza virus vaccine, inactivated 0.5 mL, Route: IM, Drug Form: SUSP, Daily, Start date: 02/09/17 9:00:00 CDT, Duration: 1 doses or times, Stop date: 02/09/17 9:00:00 CDTNotes: (Same as: Fluzone Quadrivalent, Fluarix Quadrivalent) For 3 years of age and older (0.5 mL IM) Shake well before use Inactive 02/09/2017 [facility] Humalog 10 unit, 0.1 mL, Route: [...] days from Date No Longer Active 02/09/2017 [facility] NovoLOG 10 unit, Route: SUB-Q, Drug form: SOLN, TID-Before Meals, Dosing Weight 87.5, kg, Start date: 02/09/17 7:30:00 CDT, Duration: 30 day, Stop date: 03/10/17 16:30:00 ARBOREAL SCIENTIST Inactive 02/09/2017 [facility] ciprofloxacin 500 mg, 1 tab, Route: PO, Drug form: TAB, [id number], Dosing Weight 87.5, kg, Start date: 02/09/17 1:00:00 CDT, Duration: 30 day, Stop date: 03/10/17 13:00:00 ARBOREAL SCIENTIST, ABX Indication: Skin/Soft Tissue Infectio nNotes: May interfere w/enteral feedings - Take 1 hr before or 2 hrs after antacids, dairy pdt & minerals. On empty stomach. Inactive 02/09/2017 [facility] Lantus 100 units/mL 25 unit, 0.25 mL, Route: SUB-Q, Drug form: SOLN, Bedtime, Dosing Weight 87.5, kg, Start date: 02/09/17 0:03:00 CDT, Duration: 30 day, Stop date: 03/10/17 21:00:00 CSTNotes: (Same as: Lantus) Do not hold insulin without contacting prescriber WASTE: F/P - Black; E - [employer] "single patient use only" No Longer Active 02/09/2017 [facility] hydrALAZINE 50 mg oral tablet 50 mg, 1 tab, Route: PO, Drug form: TAB, Q8H, Dosing Weight 87.5, kg, Start date: 02/09/17 0:00:00 CDT, Duration: 30 day, Stop date: 03/10/17 16:00:00 ARBOREAL SCIENTIST Inactive 02/09/2017 [facility] lisinopril 20 mg oral tablet 20 mg=1 tab, PO, BID, 0 Refill(s) No Longer Active 02/09/2017 [facility] metolazone 2.5 mg oral tablet 2.5 mg=1 tab, PO, BID, 0 Refill(s) Active 02/09/2017 [facility] furosemide 40 mg oral tablet 80 mg=2 tab, PO, QAM, 0 Refill(s) No Longer Active 02/09/2017 [facility] gabapentin 300 mg oral capsule 300 mg=1 cap, PO, BID, 0 Refill(s) No Longer Active 02/09/2017 [facility] ciprofloxacin 500 mg oral tablet 500 mg=1 tab, PO, Q12H, 0 Refill(s) No Longer Active 02/09/2017 [facility] hydrALAZINE 50 mg oral tablet 50 mg=1 tab, PO, Q8H, 0 Refill(s) No Longer Active 02/09/2017 [facility] NovoLOG 100 units/mL 10 unit, SUB-Q, TID-Before Meals, # 10 mL, 0 Refill(s) Active 02/09/2017 [facility] potassium chloride 10 mEq oral tablet, extended release 10 mEq=1 tab, PO, BID, 0 Refill(s) No Longer Active 02/09/2017 [facility] Lantus 100 units/mL 34 units, SUB-Q, Bedtime, 0 Refill(s) No Longer Active 02/09/2017 [facility] atorvastatin 80 mg oral tablet 80 mg=1 tab, PO, Daily, 0 Refill(s) Active 02/09/2017 [facility] clindamycin 150 mg, PO, Q6H, 2 capsules, 0 Refill(s) Active 02/09/2017 [facility] aspirin 81 mg tablet, chewable 81 mg=1 tab, CHEW, Daily, 0 Refill(s) Active 02/09/2017 [facility] clindamycin 300 mg, 1 cap, Route: PO, Drug form: CAP, [id number], Dosing Weight 104.545, kg, Start date: 02/08/17 21:00:00 CDT, Duration: 5 day, Stop date: 02/13/17 15:00:00 ARBOREAL SCIENTIST, ABX Indication: Skin/Soft Tissue Inf ectionNotes: (Same As: Cleocin) No Longer Active 02/09/2017 [facility] Lipitor 80 mg, 2 tab, Route: PO, Drug form: TAB, Bedtime, Dosing Weight 104.545, kg, Start date: 02/08/17 21:00:00 CDT, Duration: 30 day, Stop date: 03/09/17 21:00:00 CSTNotes: (Same as: Lipitor) No Longer Active 02/09/2017 [facility] Saline Flush 0.9% 10 ml, Route: IVP, Drug Form: INJ, Dosing Weight 104.545, kg, Q12H, Start date: 02/08/17 21:00:00 CDT, Duration: 30 day, Stop date: 03/10/17 9:00:00 CSTNotes: (Same as: BD Posiflush) No Longer Active 02/09/2017 [facility] aspirin 81 mg tablet, enteric coated 81 mg, 1 tab, Route: PO, Drug form: ECTAB, Daily, Dosing Weight 104.545, kg, Start date: 02/08/17 21:00:00 CDT, Duration: 30 day, Stop date: 03/10/17 9:00:00 CSTNotes: Do not crush or chew. (Same As: Ecotrin) No Longer Active 02/09/2017 [facility] hydrALAZINE 10 mg, 0.5 mL, Route: IVP, Drug form: INJ, Q6H, Dosing Weight 104.545, kg, PRN Hypertension, Start date: 02/08/17 20:35:00 CDT, Duration: 30 day, Stop date: 03/10/17 20:34:00 ARBOREAL SCIENTIST, FOR sbp > 180 MMNotes: (Same as: Apresoline) Push over 5 minutes No Longer Active 02/09/2017 [facility] insulin lispro 5 unit, 0.05 mL, [...] days from Date No Longer Active 02/09/2017 [facility] glucagon 1 mg, Route: IM, Drug form: PDR/INJ, PRN, Dosing Weight 104.545, kg, PRN Blood Glucose Results, Start date: 02/08/17 20:35:00 CDT, Duration: 30 day, Stop date: 03/10/17 19:34:00 ARBOREAL SCIENTIST No Longer Active 02/09/2017 [facility] Dextrose 50% Syringe 25 gm, 50 mL, Route: IVP, Drug Form: INJ, Dosing Weight 104.545, kg, PRN, PRN Blood Glucose Results, Start date: 02/08/17 20:35:00 CDT, Duration: 30 day, Stop date: 03/10/17 19:34:00 ARBOREAL SCIENTIST No Longer Active 02/09/2017 [facility] Saline Flush 0.9% 10 ml, Route: IVP, Drug Form: INJ, Dosing Weight 104.545, kg, PRN, PRN Line Flush, Start date: 02/08/17 20:26:00 CDT, Duration: 30 day, Stop date: 03/10/17 19:25:00 ARBOREAL SCIENTIST Inactive 02/09/2017 [facility] ondansetron 4 mg, 2 mL, Route: IVP, Drug form: INJ, Q8H, Dosing Weight 104.545, kg, PRN Nausea & Vomiting, Start date: 02/08/17 20:26:00 CDT, Duration: 30 day, Stop date: 03/10/17 20:25:00 CSTNotes: (Same as: [place]) MEDICATION WASTE Product Size: 4 mg Product Wasted: ___ mg No Longer Active 02/09/2017 [facility] acetaminophen 650 mg, 2 tab, Route: PO, Drug form: TAB, Q4H, Dosing Weight 104.545, kg, PRN Pain 1-3/Temp > 99.5 F, Start date: 02/08/17 20:26:00 CDT, Duration: 30 day, Stop date: 03/10/17 20:25:00 CSTNotes: Do not exceed 4 gm/day. (Same as: Tylenol) No Longer Active 02/09/2017 [facility] bisacodyl 10 mg, 1 supp, Route: [place], Drug form: SUPP, Daily, Dosing Weight 104.545, kg, PRN Constipation, Start date: 02/08/17 20:26:00 CDT, Duration: 30 day, Stop date: 03/10/17 20:25:00 CSTNotes: (Same As: Dulcolax, Bisco-Lax) No Longer Active 02/09/2017 [facility] Saline Flush 0.9% 10 mL, Route: IVP, Drug Form: INJ, Dosing Weight 104.545, kg, PRN, PRN Line Flush, Start date: 02/08/17 16:21:00 CDT, Duration: 30 day, Stop date: 03/10/17 15:20:00 CSTNotes: (Same as: BD Posiflush) No Longer Active 02/08/2017 [facility] Pentoxifylline 400 Mg Tablet.er, 400 Mg [...] day by nebulization route as needed. Active [facility] atorvastatin 80 MG Oral Tablet atorvastatin 80 mg tablet TAKE 1 TABLET BY MOUTH EVERYDAY AT BEDTIME Active [facility] Azithromycin 250 MG Oral Tablet azithromycin 250 mg tablet TAKE 2 TABLETS (500 MG) BY ORAL ROUTE ONCE DAILY FOR 1 DAY THEN 1 TABLET (250 MG) BY ORAL ROUTE ONCE DAILY FOR 4 DAYS Active [facility] carvedilol 3.125 MG Oral Tablet carvedilol 3.125 mg tablet TAKE 1 TABLET BY MOUTH EVERYDAY AT BEDTIME Active [facility] clonidine clonidine as needed Active [facility] clopidogrel 75 MG Oral Tablet clopidogrel 75 mg tablet TAKE 1 TABLET BY MOUTH EVERY DAY Active [facility] Fluconazole 150 MG Oral Tablet fluconazole 150 mg tablet Take 1 tablet every day by oral route for 7 days. Active [facility] Furosemide 40 MG Oral Tablet furosemide 40 mg tablet Take 1 tablet twice a day by oral route as needed. Active [facility] Hydralazine Hydrochloride 50 MG Oral Tablet hydralazine 50 mg tablet TAKE 1 TABLET BY MOUTH EVERY 8 HOURS Active [facility] Isosorbide Dinitrate 30 MG Oral Tablet isosorbide dinitrate 30 mg tablet TAKE 1 TABLET BY MOUTH EVERY DAY Active [facility] 3 ML Insulin Glargine 100 UNT/ML Pen Injector [Lantus] Lantus Solostar U-100 Insulin 100 unit/mL (3 mL) subcutaneous pen Inject 24 units every day by subcutaneous route in the morning. Active [facility] 3 ML insulin detemir 100 UNT/ML Pen Injector [Levemir] Levemir FlexTouch U-100 Insulin 100 unit/mL (3 mL) subcutaneous pen Active [facility] Loratadine 10 MG Oral Tablet loratadine 10 mg tablet TAKE 1 TABLET BY MOUTH EVERY DAY NEEDED Active [facility] Lorazepam 2 MG Oral Tablet lorazepam 2 mg tablet Take 1 tablet every day by oral route as needed. Active [facility] medroxyprogesterone acetate 5 MG Oral Tablet medroxyprogesterone 5 mg tablet TAKE 1 TABLET BY MOUTH EVERY DAY Active [facility] Mupirocin 0.02 MG/MG Topical Ointment mupirocin 2 % topical ointment APPLY A SMALL AMOUNT TO THE AFFECTED AREA BY TOPICAL ROUTE 3 TIMES PER DAY Active [facility] Insulin, Aspart, Human 100 UNT/ML Injectable Solution [NovoLog] Novolog U-100 Insulin aspart 100 unit/mL subcutaneous solution Inject 7 units 3 times a day by subcutaneous route as needed for 30 days. Active [facility] Nystatin 443650 UNT/ML Topical Cream nystatin 100,000 unit/gram topical cream Apply 1 application twice a day by topical route for 15 days. Active [facility] Nystatin 100 UNT/MG Topical Powder nystatin 100,000 unit/gram topical powder APPLY TO THE AFFECTED AREA(S) BY TOPICAL ROUTE 2 TIMES PER DAY Active [facility] OneTouch Delica Lancets 33 gauge OneTouch Delica Lancets 33 gauge Active [facility] OneTouch Verio Mid Control solution OneTouch Verio Mid Control solution Active [facility] OneTouch Verio strips OneTouch Verio strips Active [facility] sevelamer carbonate 800 MG Oral Tablet sevelamer carbonate 800 mg tablet Take 1 tablet 3 times a day by oral route for 90 days. Active [facility] Suprep Bowel Prep Kit 17.5 gram-3.13 gram-1.6 gram oral solution Suprep Bowel Prep Kit 17.5 gram-3.13 gram-1.6 gram oral solution Active [facility] Tamsulosin hydrochloride 0.4 MG Oral Capsule tamsulosin 0.4 mg capsule TAKE 1 CAPSULE(S) EVERY DAY BY ORAL ROUTE. Active [facility] Ultra Thin Lancets 31 gauge Ultra Thin Lancets 31 gauge Take 1 each every day by miscell. route for 90 days. Active [facility] Ergocalciferol 17374 UNT Oral Capsule Vitamin D2 50,000 unit capsule Take 1 capsule every week by oral route. Active [facility] Famotidine 20 MG Oral Tablet famotidine 20 mg tablet Active [facility] Acetaminophen 325 MG / Hydrocodone Bitartrate 5 MG Oral Tablet hydrocodone 5 mg-acetaminophen 325 mg tablet Active [facility] Lorazepam 0.5 MG Oral Tablet lorazepam 0.5 mg tablet Take 2 tablets 3 times a day by oral route. Active [facility] Nystatin 100 UNT/MG Topical Powder [Nystop] Nystop 100,000 unit/gram topical powder APPLY TO THE AFFECTED AREA(S) BY TOPICAL ROUTE 2 TIMES PER DAY Active [facility] rivaroxaban 15 MG Oral Tablet [Xarelto] Xarelto 15 mg tablet Take 1 tablet every day by oral route for 90 days. Active [facility] Acyclovir 800 MG Oral Tablet acyclovir 800 mg tablet Active [facility] Aspirin 81 MG Delayed Release Oral Tablet aspirin 81 mg tablet,delayed release Take 1 tablet every day by oral route. Active [facility] Ciprofloxacin 250 MG Oral Tablet ciprofloxacin 250 mg tablet Active [facility] True Metrix Glucose Test Strip True Metrix Glucose Test Strip Take 1 strip every day by miscell. route. Active [facility] Hydroxyzine Hydrochloride 25 MG Oral Tablet hydroxyzine HCl 25 mg tablet Take 1 tablet twice a day by oral route. Do not use benadryl, loratadine or lorazepam while using this med Active [facility] Allergies, Adverse Reactions, Alerts No Known Medication Allergies Immunizations Immunization Date Given Site Status Last Updated Comments Source pneumococcal polysaccharide PPV23 08/08/2018 [facility] pneumococcal 13-valent vaccine 02/09/[address] [facility] influenza virus vaccine, inactivated 02/09/2017 Right deltoid completed [facility] pneumococcal 13-valent vaccine 02/09/2017 Left deltoid completed [facility] pneumococcal conjugate PCV 13 02/09/2017 [facility] influenza, unspecified formulation 02/09/2017 [facility] Tdap 04/11/2015 [facility] Results Order Name Results Value Reference Range Date Interpretation Comments Source Alkaline phosphatase isoenzyme [Units/volume] in Serum or Plasma alkaline phosphatase 354 40 - 115 09/19/2018 [facility] Alkaline phosphatase isoenzyme [Units/volume] in Serum or Plasma intestinal isoenzymes 19 1 - 24 09/19/2018 [facility] Alkaline phosphatase isoenzyme [Units/volume] in Serum or Plasma bone isoenzymes 22 28 - 66 09/19/2018 [facility] Alkaline phosphatase isoenzyme [Units/volume] in Serum or Plasma liver isoenzymes 59 25 - 69 09/19/2018 [facility] Alkaline phosphatase isoenzyme [Units/volume] in Serum or Plasma placental isoenzymes 0 09/19/2018 [facility] Comprehensive metabolic 1999 panel - Serum or Plasma ALT 17 0 - 55 09/13/2018 [facility] Comprehensive metabolic 1999 panel - Serum or Plasma AST 22 5 - 34 09/13/2018 [facility] Comprehensive metabolic 1999 panel - Serum or Plasma BUN 41.4 8.4 - 25.0 09/13/2018 [facility] Comprehensive metabolic 1999 panel - Serum or Plasma alk phos 382 40 - 150 09/13/2018 [facility] Comprehensive metabolic 1999 panel - Serum or Plasma glucose 256 70 - 99 09/13/2018 [facility] Comprehensive metabolic 1999 panel - Serum or Plasma albumin 3.2 3.4 - 5.1 09/13/2018 [facility] Comprehensive metabolic 1999 panel - Serum or Plasma creatinine 4.39 0.72 - 1.25 09/13/2018 critical [facility] Comprehensive metabolic 1999 panel - Serum or Plasma eGFR non- 13 09/13/2018 abnormal [facility] Comprehensive metabolic 1999 panel - Serum or Plasma total bilirubin 1.7 0.2 - 1.2 09/13/2018 high [facility] Comprehensive metabolic 1999 panel - Serum or Plasma eGFR - 16 09/13/2018 abnormal [facility] Comprehensive metabolic 1999 panel - Serum or Plasma sodium 137 135 - 145 09/13/2018 [facility] Comprehensive metabolic 1999 panel - Serum or Plasma potassium 4.4 3.5 - 5.1 09/13/2018 [facility] Comprehensive metabolic 1999 panel - Serum or Plasma chloride 96 98 - 110 09/13/2018 low [facility] metabolic 1999 panel - Serum or Plasma total protein 7.2 6.1 - 8.2 09/13/2018 [facility] Comprehensive metabolic 1999 panel - Serum or Plasma calcium 8.8 9.0 - 10.2 09/13/2018 [facility] metabolic 1999 panel - Serum or Plasma CO2 32.2 20.0 - 32.0 09/13/2018 [facility] Comprehensive metabolic 1999 panel - Serum or Plasma anion gap 9 09/13/2018 [facility] Creatine kinase [Enzymatic activity/volume] in Serum or Plasma creatine kinase (CK) 60 30 - 200 09/13/2018 [facility] Hemoglobin A1c/Hemoglobin.total in Blood Hemoglobin A1c/Hemoglobin.total in Blood 8.3 1.0 - 5.7 09/13/2018 [facility] Hemoglobin A1c/Hemoglobin.total in Blood average blood glucose 192 09/13/2018 [facility] Lipid 1995 panel - Serum or Plasma HDL 40 40 - 0 09/13/2018 [facility] Lipid 1995 panel - Serum or Plasma triglyceride 82 0 - 150 09/13/2018 [facility] Lipid 1995 panel - Serum or Plasma VLDL (calculated) 16 09/13/2018 [facility] Lipid 1996 panel - Serum or Plasma cholesterol/HDL ratio 4.1 09/13/2018 [facility] Lipid 1995 panel - Serum or Plasma non-HDL cholesterol (calculated) 124 0 - 160 09/13/2018 [facility] Lipid 1995 panel - Serum or Plasma cholesterol 164 0 - 200 09/13/2018 [facility] Lipid 1995 panel - Serum or Plasma Cholesterol in LDL [Mass/volume] in Serum or Plasma 108 0 - 130 09/13/2018 [facility] Thyrotropin [Units/volume] in Serum or Plasma TSH 2.514 0.350 - 4.940 09/13/2018 [facility] Hemoglobin A1c/Hemoglobin.total in Blood A1C w/EAG 12.6 1.0 - 5.7 03/29/2018 [facility] Hemoglobin A1c/Hemoglobin.total in Blood average blood glucose 315 03/29/2018 [facility] Comprehensive metabolic 1999 panel - Serum or Plasma ALT 16 0 - 55 03/29/2018 [facility] Comprehensive metabolic 1999 panel - Serum or Plasma AST 21 5 - 34 03/29/2018 [facility] Comprehensive metabolic 1999 panel - Serum or Plasma BUN 37.9 8.4 - 25.7 03/29/2018 [facility] Comprehensive metabolic 1999 panel - Serum or Plasma alk phos 371 40 - 150 03/29/2018 [facility] Comprehensive metabolic 1999 panel - Serum or Plasma glucose 306 70 - 99 03/29/2018 [facility] Comprehensive metabolic 1999 panel - Serum or Plasma albumin 3.1 3.5 - 5.0 03/29/2018 [facility] Comprehensive metabolic 1999 panel - Serum or Plasma creatinine 3.72 0.72 - 1.25 03/29/2018 [facility] Comprehensive metabolic 1999 panel - Serum or Plasma eGFR non- 16 03/29/2018 abnormal [facility] Comprehensive metabolic 1999 panel - Serum or Plasma total bilirubin 1.2 0.2 - 1.2 03/29/2018 [facility] Comprehensive metabolic 1999 panel - Serum or Plasma eGFR - 20 03/29/2018 abnormal [facility] Comprehensive metabolic 1999 panel - Serum or Plasma sodium 135 136 - 145 03/29/2018 [facility] Comprehensive metabolic 1999 panel - Serum or Plasma potassium 4.8 3.5 - 5.1 03/29/2018 [facility] Comprehensive metabolic 1999 panel - Serum or Plasma chloride 95 98 - 107 03/29/2018 [facility] Comprehensive metabolic 1999 panel - Serum or Plasma total protein 6.8 6.4 - 8.3 03/29/2018 [facility] Comprehensive metabolic 1999 panel - Serum or Plasma calcium 8.5 8.8 - 10.0 03/29/2018 [facility] Comprehensive metabolic 1999 panel - Serum or Plasma CO2 32.9 23.0 - 31.0 03/29/2018 [facility] Comprehensive metabolic 1999 panel - Serum or Plasma anion gap 7 03/29/2018 [facility] PSA, total 0.49 0.00 - 4.00 03/29/2018 [facility] CHEM PANEL Magnesium Lvl 2.4 1.8 [...] should be multiplied by the estimated BMI. [facility] CHEM PANEL AST 15 0 - 37 06/08/2017 [facility] CHEM PANEL Alk Phos 161 39 - 136 06/08/2017 [facility] CHEM PANEL ALT 17 0 - 65 06/08/2017 [facility] CHEM PANEL Albumin Lvl 2.4 3.5 - 5.0 06/08/2017 [facility] CHEM PANEL Bili Total 0.6 0.2 - 1.3 06/08/2017 [facility] CHEM PANEL Calcium Lvl 7.9 8.5 - 10.5 06/08/2017 [facility] CHEM PANEL CO2 23 24 - 32 06/08/2017 [facility] CHEM PANEL Total Protein 5.9 6.4 - 8.4 06/08/2017 [facility] CHEM PANEL Creatinine Lvl 3.00 0.50 - 1.40 06/08/2017 [facility] CHEM PANEL BUN 59 7 - [...] PANEL AGAP 14.6 10.0 - 20.0 06/08/2017 [facility] CHEM PANEL A/G Ratio 0.7 0.7 - 1.6 06/08/2017 [facility] HEMATOLOGY Lymphocytes 19.4 20.0 - 40.0 06/08/2017 [facility] HEMATOLOGY Monocytes 10.7 2.0 - 12.0 06/08/2017 [facility] HEMATOLOGY Segs 65.2 45.0 - 75.0 06/08/2017 [facility] HEMATOLOGY Eosinophils # 0.2 0.0 - 0.5 06/08/2017 [facility] HEMATOLOGY Monocytes # 0.6 0.0 - 0.8 06/08/2017 [facility] Lymphocytes # 1.1 1.0 - 5.5 06/08/2017 [facility] HEMATOLOGY Basophils 0.8 0.0 - 1.0 06/08/2017 [facility] Eosinophils 3.9 0.0 - 4.0 06/08/2017 [facility] Segs-Bands # 3.6 1.5 - 8.1 06/08/2017 [facility] MCV 95.2 80.0 - 94.0 06/08/2017 [facility] Hct 26.6 42.0 - 54.0 06/08/2017 [facility] MPV 9.2 7.4 - 10.4 06/08/2017 [facility] Hgb 8.8 14.0 - 18.0 06/08/2017 [facility] MCH 31.5 27.0 - 31.0 06/08/2017 [facility] RBC 2.80 4.70 - 6.10 06/08/2017 [facility] MCHC 33.1 32.0 - 36.0 06/08/2017 [facility] Platelet 151 133 - 450 06/08/2017 [facility] RDW 16.7 11.5 - 14.5 06/08/2017 [facility] WBC 5.6 3.7 - 10.4 06/08/2017 [facility] URINE AND STOOL UA Color Ltyellow 06/07/2017 [facility] URINE AND STOOL UA Urobilinogen <=1.0 mg/dL 0.1 - 1.0 06/07/2017 [facility] URINE AND STOOL UA Sq Epi None Seen 06/07/2017 [facility] URINE AND STOOL UA RBC 6 0 - 2 06/07/2017 [facility] URINE AND STOOL UA Mucus Few [...] UA Ketones Negative mg/dL Negative mg/dL 06/07/2017 [facility] URINE AND STOOL UA RBC 3 0 - 2 06/07/2017 [facility] URINE AND STOOL UA Amorph Columba Occasional /HPF None Seen /HPF 06/07/2017 [facility] URINE AND STOOL UA Mucus Few /LPF None Seen /LPF 06/07/2017 [facility] URINE AND STOOL UA Bacteria Few /HPF None Seen /HPF 06/07/2017 [facility] URINE AND STOOL UA WBC 2 0 - 5 06/07/2017 [facility] URINE AND STOOL UA Color Ltyellow 06/07/2017 [facility] URINE AND STOOL UA Sq Epi None Seen 06/07/2017 [facility] URINE AND STOOL UA Turbidity Slight *ABN* (06/07/17 3:27 AM) Clear 06/07/2017 [facility] CHEM PANEL Ammonia 37.0 <=45.0 uMol/L 06/07/2017 [facility] CHEM PANEL Lactic Acid Lvl 0.8 0.5 - 2.2 06/07/2017 [facility] CARDIAC ENZYMES CK MB Index 3.2 0.0 - 2.5 06/07/2017 [facility] CARDIAC ENZYMES Troponin-I 0.03 0.00 - 0.40 06/07/2017 [facility] CARDIAC ENZYMES Total CK 112 12 - 191 06/07/2017 [facility] CARDIAC ENZYMES CK MB 3.6 0.5 - 3.6 06/07/2017 [facility] CHEM PANEL Phosphorus 3.3 2.5 - 4.5 06/07/2017 [facility] CHEM PANEL Magnesium Lvl 2.4 1.8 - 2.4 06/07/2017 [facility] ELECTROLYTES AGAP 15.6 10.0 - 20.0 06/07/2017 [facility] ELECTROLYTES Bili Total 0.6 0.2 - 1.3 06/07/2017 [facility] ELECTROLYTES Alk Phos 186 39 - 136 06/07/2017 [facility] ELECTROLYTES B/C Ratio 20 6 - 25 06/07/2017 [facility] ELECTROLYTES A/G Ratio 0.6 0.7 - 1.6 06/07/2017 [facility] ELECTROLYTES Potassium Lvl 4.6 3.5 - 5.1 06/07/2017 [facility] ELECTROLYTES Sodium Lvl 140 135 - 145 06/07/2017 [facility] ELECTROLYTES Globulin 4.4 2.7 - 4.2 06/07/2017 [facility] ELECTROLYTES AST 19 0 - 37 06/07/2017 [facility] ELECTROLYTES Chloride Lvl 107 95 - 109 06/07/2017 [facility] ELECTROLYTES Calcium Lvl 7.8 8.5 - 10.5 06/07/2017 [facility] ELECTROLYTES CO2 22 24 - 32 06/07/2017 [facility] ELECTROLYTES ALT 22 0 - 65 06/07/2017 [facility] ELECTROLYTES Albumin Lvl 2.5 3.5 - 5.0 06/07/2017 [facility] ELECTROLYTES Total Protein 6.9 6.4 - 8.4 06/07/2017 [facility] ELECTROLYTES eGFR 19 06/07/2017 Result Comment: [...] should be multiplied by the estimated BMI. [facility] ELECTROLYTES Creatinine Lvl 3.14 0.50 - 1.40 06/07/2017 [facility] ELECTROLYTES BUN 63 7 - 22 06/07/2017 [facility] ELECTROLYTES Glucose Lvl 246 70 - 99 06/07/2017 [facility] HEMATOLOGY Segs-Bands # 7.8 1.5 - 8.1 06/07/2017 [facility] HEMATOLOGY Monocytes # 0.7 0.0 - 0.8 06/07/2017 [facility] HEMATOLOGY Lymphocytes 8.0 20.0 - 40.0 06/07/2017 [facility] HEMATOLOGY Lymphocytes # 0.7 1.0 - 5.5 06/07/2017 [facility] HEMATOLOGY Monocytes 7.3 2.0 - 12.0 06/07/2017 [facility] HEMATOLOGY Eosinophils 0.5 0.0 - 4.0 06/07/2017 [facility] Basophils 0.5 0.0 - 1.0 06/07/2017 [facility] HEMATOLOGY Segs 83.7 45.0 - 75.0 06/07/2017 [facility] MPV 9.0 7.4 - 10.4 06/07/2017 [facility] MCH 31.0 27.0 - 31.0 06/07/2017 [facility] HEMATOLOGY Hct 28.5 42.0 - 54.0 06/07/2017 [facility] HEMATOLOGY MCV 96.4 80.0 - 94.0 06/07/2017 [facility] RBC 2.96 4.70 - 6.10 06/07/2017 [facility] HEMATOLOGY Hgb 9.2 14.0 - 18.0 06/07/2017 [facility] HEMATOLOGY WBC 9.3 3.7 - 10.4 06/07/2017 [facility] HEMATOLOGY RDW 16.3 11.5 - 14.5 06/07/2017 [facility] HEMATOLOGY Platelet 137 133 - 450 06/07/2017 [facility] MCHC 32.2 32.0 - 36.0 06/07/2017 [facility] HEMATOLOGY INR 1.19 0.85 - 1.17 06/07/2017 [facility] PT 15.2 12.0 - 14.7 06/07/2017 [facility] PTT 47.7 22.9 - 35.8 06/07/2017 [facility] 25-Hydroxyvitamin D [Mass/volume] in Serum or Plasma vitamin D,25-oh,total,ia 14 30 - 100 03/15/2017 [facility] Comprehensive metabolic 1999 panel - Serum or Plasma glucose 512 65 - 99 03/13/2017 [facility] Comprehensive metabolic 1999 panel - Serum or Plasma urea nitrogen (BUN) 53 7 - 25 03/13/2017 [facility] Comprehensive metabolic 1999 panel - Serum or Plasma creatinine 2.38 0.70 - 1.25 03/13/2017 [facility] Comprehensive metabolic 1999 panel - Serum or Plasma eGFR non-afr. panamanian 27 > or=60 03/13/2017 [facility] Comprehensive metabolic 1999 panel - Serum or Plasma eGFR 31 > or=60 03/13/2017 [facility] Comprehensive metabolic 1999 panel - Serum or Plasma BUN/creatinine ratio 22 6 - 22 03/13/2017 [facility] Comprehensive metabolic 1999 panel - Serum or Plasma sodium 131 135 - 146 03/13/2017 [facility] Comprehensive metabolic 1999 panel - Serum or Plasma potassium 4.8 3.5 - 5.3 03/13/2017 [facility] Comprehensive metabolic 1999 panel - Serum or Plasma chloride 95 98 - 110 03/13/2017 [facility] Comprehensive metabolic 1999 panel - Serum [...] Plasma albumin 3.2 3.6 - 5.1 03/13/2017 [facility] Comprehensive metabolic 1999 panel - Serum or Plasma globulin 3.4 1.9 - 3.7 03/13/2017 [facility] Comprehensive metabolic 1999 panel - Serum or Plasma albumin/globulin ratio 0.9 1.0 - 2.5 03/13/2017 [facility] Comprehensive metabolic 1999 panel - Serum or Plasma bilirubin, total 0.5 0.2 - 1.2 03/13/2017 [facility] Comprehensive metabolic 1999 panel - Serum or Plasma alkaline phosphatase 146 40 - 115 03/13/2017 [facility] Comprehensive metabolic 1999 panel - Serum or Plasma AST 11 10 - 35 03/13/2017 [facility] Comprehensive metabolic 1999 panel - Serum or Plasma ALT 9 9 - 46 03/13/2017 [facility] Lipid 1995 panel - Serum or Plasma cholesterol, total 268 <200 03/13/2017 [facility] Lipid 1995 panel - Serum or Plasma HDL cholesterol 50 >40 03/13/2017 [facility] Lipid 1995 panel - Serum or Plasma triglycerides 238 <150 03/13/2017 [facility] Lipid 1995 panel - Serum or Plasma LDL-cholesterol 178 03/13/2017 [facility] Lipid 1995 panel - Serum or Plasma chol/HDLC ratio 5.4 <5.0 03/13/2017 [facility] Lipid 1995 panel - Serum or Plasma non HDL cholesterol 218 <130 03/13/2017 [facility] Magnesium [Mass/volume] in Serum or Plasma magnesium 2.2 1.5 - 2.5 03/13/2017 [facility] Phosphate [Mass/volume] in Serum or Plasma phosphate ( phosphorus) 4.6 2.1 - 4.3 03/13/2017 [facility] Thyrotropin [Units/volume] in Serum or Plasma TSH 1.83 0.40 - 4.50 03/13/2017 [facility] Hemoglobin A1c/Hemoglobin.total in Blood hemoglobin A1C >14.0 <5.7 03/13/2017 [facility] Erythrocyte sedimentation rate by Westergren method sed rate by modified westergren 92 < or=20 03/12/2017 [facility] CBC W Auto Differential panel - Blood white blood cell count 7.5 3.8 - 10.8 03/12/2017 [facility] CBC W Auto Differential panel - Blood red blood cell count 4.35 4.20 - 5.80 03/12/2017 [facility] CBC W Auto Differential panel - Blood hemoglobin 12.9 13.2 - 17.1 03/12/2017 [facility] CBC W Auto Differential panel - [...] panel - Blood eosinophils 1.3 03/12/2017 normal [facility] CBC W Auto Differential panel - Blood basophils 1.1 03/12/2017 normal [facility] CHEM PANEL Calcium Lvl 7.6 8.5 - 10.5 02/10/2017 [facility] CHEM PANEL CO2 28 24 - 32 02/10/2017 [facility] CHEM PANEL AGAP 10.5 10.0 - 20.0 02/10/2017 [facility] CHEM PANEL eGFR 30 02/10/2017 Result [...] should be multiplied by the estimated BMI. [facility] CHEM PANEL Potassium Lvl 3.5 3.5 - 5.1 02/10/2017 [facility] CHEM PANEL Chloride Lvl 106 95 - 109 02/10/2017 [facility] CHEM PANEL Sodium Lvl 141 135 - 145 02/10/2017 [facility] CHEM PANEL Creatinine Lvl 2.20 0.50 - 1.40 02/10/2017 [facility] CHEM PANEL BUN 38 7 - 22 02/10/2017 [facility] CHEM PANEL Glucose Lvl 85 70 - 99 02/10/2017 [facility] HEMATOLOGY MPV 8.0 7.4 - 10.4 02/10/2017 [facility] HEMATOLOGY Platelet 224 133 - 450 02/10/2017 [facility] HEMATOLOGY RDW 13.6 11.5 - 14.5 02/10/2017 [facility] HEMATOLOGY MCV 93.3 80.0 - 94.0 02/10/2017 [facility] HEMATOLOGY Hct 32.3 42.0 - 54.0 02/10/2017 [facility] HEMATOLOGY MCHC 34.0 32.0 - 36.0 [...] HEMATOLOGY Segs 62.8 45.0 - 75.0 02/10/2017 [facility] CHEM PANEL Bili Total 0.6 0.2 - 1.3 02/09/2017 [facility] CHEM PANEL Alk Phos 121 39 - 136 02/09/2017 [facility] CHEM PANEL Calcium Lvl 8.0 8.5 [...] Creatinine Lvl 2.33 0.50 - 1.40 02/09/2017 [facility] CHEM PANEL Sodium Lvl 140 135 - 145 02/09/2017 [facility] CHEM PANEL BUN 32 7 - 22 02/09/2017 [facility] CHEM PANEL AGAP 12.8 10.0 - 20.0 02/09/2017 [facility] CHEM PANEL Chloride Lvl 104 95 - 109 02/09/2017 [facility] CHEM PANEL CO2 27 24 - 32 02/09/2017 [facility] CHEM PANEL Glucose Lvl 262 70 - 99 02/09/2017 [facility] CHEM PANEL eGFR 28 02/09/2017 Result [...] should be multiplied by the estimated BMI. [facility] CARDIAC ENZYMES CK MB Index 3.8 0.0 - 2.5 02/08/2017 [facility] CARDIAC ENZYMES Troponin-I 0.05 0.00 - 0.40 02/08/2017 [facility] CARDIAC ENZYMES CK MB 3.1 0.5 - 3.6 02/08/2017 [facility] CARDIAC ENZYMES Total CK 81 12 - 191 02/08/2017 [facility] ELECTROLYTES AGAP 9.3 10.0 - 20.0 02/08/2017 [facility] ELECTROLYTES eGFR 26 02/08/2017 Result Comment: [...] should be multiplied by the estimated BMI. [facility] ELECTROLYTES CO2 29 24 - 32 02/08/2017 [facility] ELECTROLYTES Chloride Lvl 105 95 - 109 02/08/2017 [facility] ELECTROLYTES Calcium Lvl 8.2 8.5 - 10.5 02/08/2017 [facility] ELECTROLYTES Glucose Lvl 78 70 - 99 02/08/2017 [facility] ELECTROLYTES BUN 29 7 - 22 02/08/2017 [facility] ELECTROLYTES Creatinine Lvl 2.50 0.50 - 1.40 02/08/2017 [facility] ELECTROLYTES Sodium Lvl 140 135 - 145 02/08/2017 [facility] ELECTROLYTES Potassium Lvl 3.3 3.5 - 5.1 02/08/2017 [facility] HEMATOLOGY Basophils 0.6 0.0 - 1.0 02/08/2017 [facility] HEMATOLOGY Eosinophils 0.2 0.0 - 4.0 02/08/2017 [facility] HEMATOLOGY Lymphocytes # 0.7 1.0 - 5.5 02/08/2017 [facility] HEMATOLOGY Segs-Bands # 8.2 1.5 - 8.1 02/08/2017 [facility] HEMATOLOGY Basophils # 0.1 0.0 - 0.2 02/08/2017 [facility] HEMATOLOGY Monocytes # 0.5 0.0 - 0.8 02/08/2017 [facility] HEMATOLOGY Lymphocytes 7.0 20.0 - 40.0 02/08/2017 [facility] HEMATOLOGY Segs 86.6 45.0 - 75.0 02/08/2017 [facility] HEMATOLOGY Monocytes 5.6 2.0 - 12.0 02/08/2017 [facility] HEMATOLOGY PTT 37.1 22.9 - 35.8 02/08/2017 [facility] HEMATOLOGY PT 13.3 12.0 - 14.7 02/08/2017 [facility] HEMATOLOGY INR 1.01 0.85 - 1.17 02/08/2017 [facility] HEMATOLOGY MCHC 33.2 32.0 - 36.0 02/08/2017 [facility] HEMATOLOGY RBC 3.83 4.70 - 6.10 02/08/2017 [facility] HEMATOLOGY WBC 9.4 3.7 - 10.4 02/08/2017 [facility] Hgb 11.9 14.0 - 18.0 02/08/2017 [facility] Platelet 251 133 - 450 02/08/2017 [facility] RDW 13.6 11.5 - 14.5 02/08/2017 [facility] MPV 8.4 7.4 - 10.4 02/08/2017 [facility] MCV 93.7 80.0 - 94.0 02/08/2017 [facility] Hct 35.9 42.0 - 54.0 02/08/2017 [facility] MCH 31.1 27.0 - 31.0 02/08/2017 [facility] LIPIDS Chol 303 <=199 mg/dL 02/08/2017 [facility] LIPIDS HDL 56 >=61 mg/dL 02/08/2017 [facility] LIPIDS VLDL 27 02/08/2017 [facility] LIPIDS LDL (Calculated) 220 <=99 mg/dL 02/08/2017 [facility] LIPIDS Trig 133 <=149 mg/dL 02/08/2017 [facility] LIPIDS CHD Risk 5.41 4.00 - 7.30 02/08/2017 [facility] SPECIAL CHEMISTRY Hgb A1C 12.9 <=5.6 % 02/08/2017 [facility] Pathology Reports No Data Provided for [...] speech pathology report for further details. SL: [id number] 06/08/2017 [facility] Brain wo contrast CT Clinical Indication: [...] chronic microvascular ischemic changes. SL: KPATEL-M 06/07/2017 [facility] Spine cervical wo contrast CT Clinical [...] acute fractures or subluxations. SL: KPATEL-M 06/07/2017 [facility] Pelvis AP DX Clinical Indication: Status [...] within the visualized spine. SL: UMMTEL-M 06/07/2017 [facility] Chest 1view DX EXAM: Chest x-ray [...] evidence of pulmonary edema. SL: UKJOHN-Emilie 06/07/2017 [facility] Retroperitoneal Complete US Clinical Indication: - [...] 1. Unremarkable renal U/S SL: SROSENBLUM-PC 02/09/2017 [facility] Esophagus BA swallow function video DX Patient Name: EDWIGE HORVATH : 1950; Age: 66 years Male MR: [id number] Study: Esophagus BA swallow function video DX [...] penetration with deep penetration on partial volumes. Cornucopia consistency barium: Flash penetration. Pudding coated barium: No aspiration or any significant laryngeal penetration. Barium with cracker preparation: No aspiration or any significant laryngeal penetration. SL: [id number] 02/09/2017 [facility] contrast MRI Clinical Indication: Slurred speech [...] disease changes/small vessel disease. SL: KPATEL-M 02/09/2017 [facility] contrast MRA Clinical Indication: Patient complained of slurred speech and unsteady gait since this morning. Stroke Comparison: CT head 02/08/2017. Technique: Magnetic resonance angiography of the [place] of [place] was performed without contrast. 3D [...] hypoplasia or severe stenosis. SL: KPANESS 02/09/2017 [facility] Neck wo contrast MRA Clinical Indication: [...] or left vertebral arteries. SL: KPANESS 02/09/2017 [facility] Brain contrast CT Study: Brain wo [...] skull is intact. Mild left frontal and ywkl-ql-lgoguxsh bilateral ethmoid air cell opacification is present. [...] would be recommended for further assessment. SL: [id number] 02/08/2017 [facility] Brain wo contrast CT I have been advised from the scanning technologist from [facility] that the incorrect name was applied to this examination and should be disregarded. A report will be faxed to the [facility] Emergency Department. Clinical Indication: ct wzs577.80 - right sided drift, slurred speech, woke [...] hemorrhage. Report will be faxed to the [facility] Emergency Department following the dictation at 5:23 PM SL: [id number] 02/08/2017 [facility] Chest 1view DX Chest 1view DX [...] of acute cardiopulmonary disease. SL: SSMILEY-MEGA 02/08/2017 [facility] Consultation Notes No Data Provided for This Section Discharge Summaries No Data Provided for This Section History and Physicals No Data Provided for This Section Vital Signs Vital Sign Value Date Comments Source Diastolic (mm Hg) 50 10/10/2018 [facility] Height 69 10/10/2018 [facility] Systolic (mm Hg) 110 10/10/2018 [facility] Weight 188 10/10/2018 [facility] Diastolic (mm Hg) 68 09/12/2018 [facility] Diastolic (mm Hg) 91 06/09/2017 [facility] Temperature Oral (F) 98.3 F 06/09/2017 [facility] Systolic (mm Hg) 173 06/08/2017 [facility] Diastolic (mm Hg) 82 06/08/2017 [facility] Heart Rate 60 06/08/2017 [facility] Respitory Rate 16 06/08/2017 [facility] Temperature Oral (F) 98.1 F 06/08/2017 [facility] Heart Rate 60 06/08/2017 [facility] Respitory Rate 16 06/08/2017 [facility] Systolic (mm Hg) 173 06/08/2017 [facility] Diastolic (mm Hg) 82 06/08/2017 [facility] Temperature Oral (F) 98.1 F 06/08/2017 [...] [facility] Systolic (mm Hg) 153 02/11/2017 [facility] Diastolic (mm Hg) 77 02/11/2017 [facility] Temperature Oral (F) 98.0 F 02/11/2017 [facility] Respitory Rate 16 02/11/2017 [facility] Heart Rate 60 02/11/2017 [facility] Respitory Rate 16 02/11/2017 [facility] Systolic (mm Hg) 157 02/11/2017 [facility] Diastolic (mm Hg) 80 02/11/2017 [facility] Heart Rate 57 02/11/2017 [facility] Temperature Oral (F) 98.1 F 02/11/2017 [facility] Heart Rate 58 02/11/2017 [facility] Respitory Rate 16 02/11/2017 [facility] Temperature Oral (F) 97.8 F 02/11/2017 [facility] Systolic (mm Hg) 121 02/11/2017 [facility] Diastolic (mm Hg) 61 02/11/2017 [facility] BMI Calculated 28.49 02/09/2017 [facility] Height 175.26 cm 02/09/2017 [facility] Weight 87.5 02/09/2017 [facility] BMI Calculated 33.07 02/08/2017 [facility] Weight 104.545 02/08/2017 [facility] Height 177.8 cm 02/08/2017 [facility] Encounters Location Location Details Encounter Type Encounter Number Reason For Visit Attending Provider ADM Date DC Date Status Source [facility] Observation [id number] Sanya Kumar 02/08/2017 02/11/2017 [facility] Family Practice - Care Management Анна Novoa: [address], [address], [place] [address], Ph. [id number] Анна Novoa 03/08/2017 [facility] Ramonita Allan MD: [address] [place] [address], Ph. [id number] Ramonita Allan 03/11/2017 [facility] Ramonita Allan MD: [address] [place] [address], Ph. [id number] Ramonita Allan 03/22/2017 [facility] Practice - Care Management [facility]: [address], [address], [place] [address], Ph. [id number] [facility] 04/06/2017 [facility] Ramonita Allan MD: [address] [place] [address], Ph. [id number] Ramonita Allan 04/12/2017 [facility] Practice - Care Management [facility]: [address], [address], [place] [address], Ph. [id number] [facility] 04/21/2017 [facility] Practice - Care Management Анна Novoa: [address], [address], [place] [address], Ph. [id number] Анна Novoa 05/02/2017 [facility] Ramonita Allan MD: [facility] [place] [address], Ph. [id number] Ramonita Allan 05/10/2017 [facility] - Care Management Анна Novoa: [address], [address], [place] [address], Ph. [id number] Анна Novoa 05/11/2017 [facility] Joseph Miller MD: [address] [place] [address], Ph. [id number] Joseph Miller 05/18/2017 [facility] Ramonita Allan MD: [facility] [place] [address], Ph. [id number] Ramonita Allan 05/24/2017 [facility] - Care Management Анна Novoa: [address], [address], [place] [address], Ph. [id number] Анна Novoa 05/25/2017 [facility] - Care Management Анна Novoa: [address], [address], [place] [address], Ph. [id number] Анна Novoa 06/01/2017 [facility] Observation [id number] April Arthur 06/07/2017 06/09/2017 [facility] Practice - Care Management Анна Novoa: [address], [address], [place] [address], Ph. [id number] Анна Novoa 06/15/2017 [facility] Ramonita Allan MD: [address] [place] [address], Ph. [id number] Ramonita Allan 03/28/2018 [facility] Ramonita Allan MD: [address] [place] [address], Ph. [id number] Ramonita Allan 04/25/2018 [facility] Ramonita Allan MD: [address] [place] [address], Ph. [id number] Ramonita Allan 04/25/2018 [facility] Ramonita Allan MD: [address] [place] [address], Ph. [id number] Ramonita Allan 04/25/2018 [facility] MD: [address] [place] [address], Ph. [id number] Ramonita Allan 05/23/2018 [facility] Ramonita Allan MD: [facility] [place] [address], Ph. [id number] Ramonita Allan 05/23/2018 [facility] Ramonita Allan MD: [address] [place] [address], Ph. [id number] Ramonita Allan 07/11/2018 [facility] Ramonita Allan MD: [address] [place] [address], Ph. [id number] Ramonitaconsuelo Allan 07/11/2018 [facility] Departed Emergency Room [id number] EDUARDO DEL CID MD 07/26/2018 07/26/2018 [facility] Ramonita Allan MD: [address] [place] [address], Ph. [id number] Ramonita Allan 08/08/2018 [facility] Ramonita Allan MD: [address] [place] [address], Ph. [id number] Ramonita Allan 08/08/2018 [facility] Ramonita Allan MD: [address] [place] [address], Ph. [id number] Ramonita Allan 09/12/2018 [facility] Ramonita Allan MD: [address] [place] [address], Ph. [id number] Ramonita Allan 09/12/2018 [facility] Ramonita Allan MD: [address] [place] [address], Ph. 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 06/09/2017 [facility] Other 04/11/2017 [facility] Amputation 04/11/2005 [facility] Stent placement [id number] [facility] Assessment and Plan Assessment and Plan [...] Date: 02/11/17 NEUROLOGY Progress Note - Daily [facility] Completed: Feb, 09:03 by Maria Isabel Crespo MD RM: 233 - 1P, SE C2A EDWIGE HORVATH F 66y (: 1950) M Attending: Sanya Kumar [...] intact ftn, hts Abnormal movements: none Coordination cnfrez-sc-dluk is intact Gait patient stood up and [...] mg PO Q4H 02/08/17 bisacodyl 10 mg [place] Daily 02/08/17 glucagon 1 mg IM PRN [...] expect 1 midnight stay for now 02/11/2017 [facility] Plan of Care Plan of Care [...] Cessation Counseling No entered on: 06/07/17 06/07/2017 [facility] Smoking Status Former Smoker (1 PPW) 03/11/2017 [facility] Family History No Data Provided for This Section Advance Directives Order Name Results Value Date Source Advance Directives Advance Directives Directive Response Recorded Date/Time Does the patient have an advance directive? No 05/27/17 4:15pm If yes, is advance directive on file with [facility]? No 05/27/17 4:15pm If not on file with [facility] will patient provide a copy? No 05/27/17 4:15pm 07/26/2018 [facility] Functional Status No Data Provided for This Section
--- OUTSIDE RECORDS SUMMARY | 2018-12-31 15:29 | XMS REPORT | Continuity of Care Document ---
Author Author [employer] Organization [employer] Address Unknown Phone Unavailable Care Team Providers Care Branch Service Associate Name Role Phone [employer] Unavailable Unavailable Problems Problem Status Onset Date Classification Date Reported Comments Source Open wound of lower leg 10/11/2018 Diagnosis 10/11/2018 [facility] Coronary arteriosclerosis 10/11/2018 Diagnosis 10/11/2018 [facility] Peripheral vascular disease 10/11/2018 Diagnosis 10/11/2018 [facility] Hospital patient 10/11/2018 Diagnosis 10/11/2018 [facility] Amputated big toe 10/10/2018 Diagnosis 10/11/2018 [facility] Onychomycosis of toenails 10/10/2018 Diagnosis 10/11/2018 [facility] Pruritus of skin 10/10/2018 Diagnosis 10/11/2018 [facility] Amputated Big Toe 10/10/2018 Problem 10/11/2018 [facility] Deep venous thrombosis of upper extremity 09/13/2018 Diagnosis 10/11/2018 [facility] Abnormal Gait Due to Muscle Weakness 09/13/2018 Problem 10/11/2018 [facility] Abnormal gait due to muscle weakness 09/12/2018 Diagnosis 10/11/2018 [facility] Congestive heart failure 09/12/2018 Diagnosis 10/11/2018 [facility] End stage renal failure on dialysis 09/12/2018 Diagnosis 10/11/2018 [facility] Body mass index 25-29 - overweight 09/12/2018 Diagnosis 10/11/2018 [facility] Productive cough 09/12/2018 Diagnosis 10/11/2018 [facility] Type II diabetes mellitus uncontrolled 09/12/2018 Diagnosis 10/11/2018 [facility] Carpal Tunnel Syndrome 08/27/2018 Problem 10/11/2018 [facility] Diabetic neuropathy 08/09/2018 Diagnosis 08/09/2018 [facility] Stented coronary artery 08/09/2018 Diagnosis 08/09/2018 [facility] Deep Venous Thrombosis of Upper Extremity 08/09/2018 Problem 10/11/2018 [facility] Screening for malignant neoplasm of colon 08/08/2018 Diagnosis 08/09/2018 [facility] Immunization 08/08/2018 Diagnosis 08/09/2018 [facility] Screening for osteoporosis 08/08/2018 Diagnosis 08/09/2018 [facility] Essential hypertension 07/11/2018 Diagnosis 08/09/2018 [facility] History of cerebrovascular accident 07/11/2018 Diagnosis 08/09/2018 [facility] Chronic obstructive lung disease 05/23/2018 Diagnosis 06/09/2018 [facility] Angina pectoris 05/23/2018 Diagnosis 06/09/2018 [facility] Senile purpura 05/23/2018 Diagnosis 06/09/2018 [facility] Tinea cruris 05/23/2018 Diagnosis 06/09/2018 [facility] Skin lesion 05/23/2018 Diagnosis 06/09/2018 [facility] Immunization refused 05/23/2018 Diagnosis 06/09/2018 [facility] History of smoking 05/23/2018 Diagnosis 05/23/2018 [facility] Adult health examination 04/25/2018 Diagnosis 06/09/2018 [facility] Benign prostatic hyperplasia 04/25/2018 Diagnosis 06/09/2018 [facility] Incontinence of feces 04/25/2018 Diagnosis 06/09/2018 [facility] Seasonal allergic rhinitis 04/25/2018 Diagnosis 06/09/2018 [facility] Advance directive discussed with patient 04/25/2018 Diagnosis 06/09/2018 [facility] Depression screening 04/25/2018 Diagnosis 06/09/2018 [facility] End Stage Renal Failure on Dialysis 12/13/2017 Problem 10/11/2018 [facility] Acute kidney failure, unspecified 06/17/2017 09/14/2017 [facility] FALL Active 06/07/2017 [facility] CHAI, GENERALIZED WEAKNESS Active 06/07/2017 [facility] Hypoglycemic state in diabetes 05/26/2017 Diagnosis 07/09/2017 [facility] Hypoglycemic State in Diabetes 05/26/2017 Problem 10/11/2018 [facility] Dyspnea at rest 05/10/2017 Diagnosis 07/09/2017 [facility] Benign Prostatic Hyperplasia 04/13/2017 Problem 10/11/2018 [facility] Cough 04/12/2017 Diagnosis 07/09/2017 [facility] Hypertensive disorder 04/12/2017 Diagnosis 07/09/2017 [facility] Acid reflux 04/12/2017 Diagnosis 07/09/2017 [facility] Type 2 diabetes mellitus 04/12/2017 Diagnosis 07/09/2017 [facility] Chronic kidney disease 03/24/2017 Diagnosis 07/09/2017 [facility] Hypotensive episode 03/24/2017 Diagnosis 07/09/2017 [facility] Altered mental status 03/24/2017 Diagnosis 07/09/2017 [facility] History of Cerebrovascular Accident 03/21/2017 Problem 10/11/2018 [facility] Type II Diabetes Mellitus Uncontrolled 03/19/2017 Problem 10/11/2018 [facility] Diabetic Neuropathy 03/19/2017 Problem 10/11/2018 [facility] Essential Hypertension 03/19/2017 Problem 10/11/2018 [facility] Congestive Heart Failure 03/19/2017 Problem 10/11/2018 [facility] Peripheral Vascular Disease 03/19/2017 Problem 10/11/2018 [facility] Chronic Kidney Disease 03/19/2017 Problem 10/11/2018 [facility] Stented Coronary Artery 03/19/2017 Problem 10/11/2018 [facility] Cerebrovascular Accident 03/19/2017 Problem 07/09/2017 [facility] Diabetic peripheral neuropathy 03/11/2017 Diagnosis 07/09/2017 [facility] Chronic kidney disease stage 3 03/11/2017 Diagnosis 07/09/2017 [facility] Cerebrovascular accident 03/11/2017 Diagnosis 07/09/2017 [facility] Mixed hyperlipidemia due to type 2 diabetes mellitus 03/11/2017 Diagnosis 07/09/2017 [facility] At risk for falls 03/11/2017 Diagnosis 07/09/2017 [facility] STROKE-LIKE SYMPTOMS Active 02/08/2017 [facility] SLURRED SPEECH/ GAIT ABNORMALITY Active 02/08/2017 [facility] Hematuria Active 04/01/2015 Problem 07/27/2018 [facility] Renal insufficiency Active 04/01/2015 Problem 07/27/2018 [facility] UTI Active 04/01/2015 Problem 07/27/2018 [facility] 569.89 Active 10/29/2014 [facility] Type 2 [...] without complications 09/14/2017 [facility] Hyperlipidemia, unspecified 09/14/2017 [facility] Atherosclerotic heart disease of [place] coronary artery without angina pectoris 09/14/2017 [facility] Personal history of transient ischemic attack , and cerebral infarction without residual deficits 09/14/2017 [facility] Personal history of nicotine dependence 09/14/2017 [facility] watermelon inspector use of aspirin 09/14/2017 [facility] jail use of insulin 09/14/2017 [facility] CHF exacerbation Active Problem 07/27/2018 [facility] CKD Active Problem 07/27/2018 [facility] Chest pain Active Problem 07/27/2018 [facility] Febrile illness Active Problem 07/27/2018 [facility] Hyperkalemia Active Problem 07/27/2018 [facility] Hyperlipidemia Problem 10/11/2018 [facility] ACUTE KIDNEY FAILURE, UNSPECIFIED Active [facility] WEAKNESS Active [facility] Medications Medication Details Route Status Patient Instructions Ordering Provider Order Date Source Morphine 2 mg, 1 mL, Route: IVP, Drug form: INJ, Q4H, Dosing Weight 95.597, kg, PRN Pain Score 7-10, Start date: 06/08/17 10:32:00 CERTIFIED NUTRITIONIST, Duration: 30 day, Stop date: 07/08/17 10:31:00 CDTNotes: (Same as:MORPhine Sulfate) Inactive 06/08/2017 [facility] Hydralazine 10 mg, 0.5 mL, Route: IVP, Drug form: INJ, Q4H, Dosing Weight 95.597, kg, PRN Elevated BP, Start date: 06/08/17 10:09:00 CERTIFIED NUTRITIONIST, Duration: 30 day, Stop date: 07/08/17 10:08:00 CDTNotes: (Same as: Joseph line) Push over 5 minutes Inactive 06/08/2017 [facility] Saline Flush 0.9% 10 ml, Route: IVP, Drug Form: INJ, Dosing Weight 95.597, kg, Q12H, Start date: 06/07/17 21:00:00 CERTIFIED NUTRITIONIST, Duration: 30 day, Stop date: 07/07/17 9:00:00 CDTNotes: (Same as: BD Posiflush) No Longer Active 06/08/2017 [facility] atorvastatin 80 mg, 2 tab, Route: PO, Drug form: TAB, Bedtime, Dosing Weight 95.597, kg, Start date: 06/07/17 21:00:00 CERTIFIED NUTRITIONIST, Duration: 30 day, Stop date: 07/06/17 21:00:00 CDTNotes: (Same as: Lipitor) No Longer Active 06/08/2017 [facility] Acyclovir 750 mg, Route: IV, Drug form: PDR/INJ, [id number], Dosing Weight 95.597, kg, Start date: 06/07/17 21:00:00 CERTIFIED NUTRITIONIST, Duration: 7 day, Stop date: 06/13/17 21:00:00 CSTNotes: (Same as: Zovirax) For adult patients only: Round to nearest 50 mg per Medical Staff approval MEDICATION WASTE Product Size: 500 mg Product Wasted: 250 mg No Longer Active 06/08/2017 [facility] Morphine 4 mg, 1 mL, Route: IVP, Drug form: SOLN, Q4H, Dosing Weight 95.597, kg, PRN Pain Score 7-10, Start date: 06/07/17 20:16:00 CERTIFIED NUTRITIONIST, Duration: 30 day, Stop date: 07/07/17 20:15:00 CDTNotes: (Same as:MORPhine Sulfate) No Longer Active 06/08/2017 [facility] heparin 5,000 unit, 1 mL, Route: SUB-Q, Drug form: INJ, Q8H-06, Dosing Weight 95.597, kg, (For patients weighing Notes: porcine heparin No Longer Active 06/07/2017 [facility] valacyclovir 1,000 mg, 2 tab, Route: PO, Drug form: TAB, [id number], Dosing Weight 95.597, kg, Priority: NOW, Start date: 06/07/17 10:47:00 CERTIFIED NUTRITIONIST, Duration: 7 day, Stop date: 06/13/17 10:47:00 CSTNotes: (Same As: Valtrex) Inactive 06/07/2017 [facility] Aspirin 300 MG Rectal Suppository 300 mg, 1 supp, Route: IL, Drug form: SUPP, ONCE, Dosing Weight 95.597, kg, Priority: NOW, Start date: 06/07/17 10:40:00 CERTIFIED NUTRITIONIST, Stop date: 06/07/17 10:40:00 CSTNotes: Refrigerate. Inactive 06/07/2017 [facility] Aspirin 81 MG Enteric Coated Tablet 81 mg, 1 tab, Route: PO, Drug form: ECTAB, Q24H, Dosing Weight 95.597, kg, Start date: 06/07/17 10:00:00 CERTIFIED NUTRITIONIST, Duration: 30 day, Stop date: 07/06/17 10:00:00 CDTNotes: Do not crush or chew. (Same As: Ecotrin) No Longer Active 06/07/2017 [facility] Glucagon 1 mg, Route: IM, Drug form: PDR/INJ, PRN, Dosing Weight 95.597, kg, PRN Blood Glucose Results, Start date: 06/07/17 9:48:00 CERTIFIED NUTRITIONIST, Duration: 30 day, Stop date: 07/07/17 10:47:00 CDT No Longer Active 06/07/2017 [facility] Dextrose 50% Syringe 25 gm, 50 mL, Route: IVP, Drug Form: INJ, Dosing Weight 95.597, kg, PRN, PRN Blood Glucose Results, Start date: 06/07/17 9:48:00 CERTIFIED NUTRITIONIST, Duration: 30 day, Stop date: 07/07/17 10:47:00 CDT No Longer Active 06/07/2017 [facility] Insulin Lispro 4 unit, 0.04 mL, Route: SUB-Q, Drug form: SOLN, Sliding Scale, Dosing Weight 95.597, kg, PRN Blood Glucose Results, Start date: 06/07/17 9:48:00 CERTIFIED NUTRITIONIST, Duration: 30 day, Stop date: 07/07/17 10:47:00 CDTNo naldo: (Same as: Humalog ) Roll in palms of hands gently; Do not shake `vigorously. "Single Patient Use Only " WASTE: F/P - Black; E - [employer] Trash Bin Stable for 28 days at room temperature. Expires in days from Date No Longer Active 06/07/2017 [facility] Saline Flush 0.9% 10 ml, Route: IVP, Drug Form: INJ, Dosing Weight 95.597, kg, PRN, PRN Line Flush, Start date: 06/07/17 9:47:00 CERTIFIED NUTRITIONIST, Duration: 30 day, Stop date: 07/07/17 10:46:00 CDTNotes: (Same as: BD Posiflush) No Longer Active 06/07/2017 [facility] Saline Flush 0.9% 10 ml, Route: IVP, Drug Form: INJ, Dosing Weight 87.5, kg, PRN, PRN Line Flush, Start date: 06/07/17 7:07:00 CERTIFIED NUTRITIONIST, Duration: 30 day, Stop date: 07/07/17 8:06:00 CDTNotes: (Same as: BD Posiflush) No Longer Active 06/07/2017 [facility] Sodium Chloride 0.9% IV 1,000 mL 1,000 mL, Rate: 125 ml/hr, Infuse over: 8 hr, Route: IV, Dosing Weight 87.5 kg, Total Volume: 1,000, Start date: 06/07/17 7:07:00 CERTIFIED NUTRITIONIST, Duration: 30 day, Stop date: 07/07/17 7:06:00 CDT, 2.08, m2 No Longer Active 06/07/2017 [facility] Ondansetron 4 mg, 2 mL, Route: IVP, Drug form: INJ, Q6H, Dosing Weight 87.5, kg, PRN Nausea & Vomiting, Start date: 06/07/17 7:07:00 CERTIFIED NUTRITIONIST, Duration: 30 day, Stop date: 07/07/17 7:06:00 CDTNotes: (Same as: Zofran) MEDICATION WASTE Product Size: 4 mg Product Wasted: ___ mg No Longer Active 06/07/2017 [facility] Acetaminophen 650 mg, 2 tab, Route: PO, Drug form: TAB, Q4H, Dosing Weight 87.5, kg, PRN Pain 1-3/Temp > 100.4 F, Start date: 06/07/17 7:07:00 CERTIFIED NUTRITIONIST, Duration: 30 day, Stop date: 07/07/17 7:06:00 CDTNotes: Do not ex ceed 4 gm/day. (Same as: Tylenol) No Longer Active 06/07/2017 [facility] Sodium Chloride 0.9% IV 1,000 mL 1,000 mL, Rate: 75 ml/hr, Infuse over: 13.3 hr, Route: IV, Dosing Weight 87.5 kg, Total Volume: 1,000, Start date: 06/07/17 6:02:00 CERTIFIED NUTRITIONIST, Duration: 30 day, Stop date: 07/07/17 6:01:00 CDT, 2.08, m2 Inactive 06/07/2017 [facility] Insulin Glargine (Lantus 3ML Pen) 100 Units/1 Ml Inj, 20 Bedtime Active 05/28/2017 [facility] Insulin Glargine (Lantus) 100 Units/Ml Ml, 34 Units Sub-Q Bedtime Active 05/28/2017 [facility] Amoxicillin 875 MG / Clavulanate 125 MG Oral Tablet amoxicillin 875 mg-potassium clavulanate 125 mg tablet Active 05/24/2017 [facility] Azithromycin 250 MG Oral Tablet azithromycin 250 mg tablet Active 05/10/2017 [facility] benzonatate 200 MG Oral Capsule benzonatate 200 mg capsule Take 1 capsule 3 times a day by oral route for 10 days. Active 05/10/2017 [facility] Infinity Meter Kit Infinity Meter Kit Active 05/10/2017 [facility] lancing device lancing device Active 05/10/2017 [facility] 3 ML Insulin Glargine 100 UNT/ML Pen Injector [Lantus] Lantus Solostar U-100 Insulin 100 unit/mL (3 mL) subcutaneous pen 20 units at bedtime Active 05/10/2017 [facility] True Metrix Glucose Test Strip True Metrix Glucose Test Strip use 4 times a day Active 05/10/2017 [facility] Clindamycin 150 MG Oral Capsule clindamycin HCl 150 mg capsule 2 capsules every 6 hrs Active 04/12/2017 [facility] gabapentin 300 MG Oral Capsule gabapentin 300 mg capsule Take 1 capsule twice a day by oral route. Active 04/12/2017 [facility] Lisinopril 20 MG Oral Tablet lisinopril 20 mg tablet Take 1 tablet twice a day by oral route. Active 04/12/2017 [facility] Metolazone 2.5 MG Oral Tablet metolazone 2.5 mg tablet Take 1 tablet twice a day by oral route. Active 04/12/2017 [facility] Regular Insulin, Human 100 UNT/ML Injectable Solution [Novolin R] Novolin R Regular U-100 Insulin 100 unit/mL injection solution Active 04/12/2017 [facility] Pentoxifylline 400 MG Extended Release Oral Tablet pentoxifylline ER 400 mg tablet,extended release Take 1 tablet 3 times a day by oral route. Active 04/12/2017 [facility] Microencapsulated Potassium Chloride 10 MEQ Extended Release Oral Tablet potassium chloride ER 10 mEq tablet,extended release(part/cryst) Take 1 tablet twice a day by oral route. Active 04/12/2017 [facility] Acetaminophen 300 MG / Codeine Phosphate 30 MG Oral Tablet acetaminophen 300 mg-codeine 30 mg tablet Active 03/11/2017 [facility] Cephalexin 500 MG Oral Capsule cephalexin 500 mg capsule Active 03/11/2017 [facility] Ciprofloxacin 500 MG Oral Tablet ciprofloxacin 500 mg tablet Take 1 tablet twice a day by oral route. Active 03/11/2017 [facility] Doxepin Hydrochloride 50 MG/ML Topical Cream doxepin 5 % topical cream Active 03/11/2017 [facility] gabapentin 100 MG Oral Capsule gabapentin 100 mg capsule Active 03/11/2017 [facility] gatifloxacin 5 MG/ML Ophthalmic Solution gatifloxacin 0.5 % eye drops Active 03/11/2017 [facility] Ketorolac Tromethamine 5 MG/ML Ophthalmic Solution ketorolac 0.5 % eye drops Active 03/11/2017 [facility] Levofloxacin 250 MG Oral Tablet levofloxacin 250 mg tablet Active 03/11/2017 [facility] Mupirocin 0.02 MG/MG Topical Ointment mupirocin 2 % topical ointment Active 03/11/2017 [facility] prednisolone acetate 10 MG/ML Ophthalmic Suspension prednisolone acetate 1 % eye drops,suspension Active 03/11/2017 [facility] Sulfamethoxazole 800 MG / Trimethoprim 160 MG Oral Tablet sulfamethoxazole 800 mg-trimethoprim 160 mg tablet Active 03/11/2017 [facility] tramadol hydrochloride 50 MG Oral Tablet tramadol 50 mg tablet Active 03/11/2017 [facility] TRUEplus Lancets 28 gauge TRUEplus Lancets 28 gauge Active 03/11/2017 [facility] Acetaminophen With Codeine (Tylenol With Codeine #3 Tablet) 1 Each Tablet, 300 Mg Oral Every 6 Hours as needed for Pain Active 03/04/2017 [facility] Carvedilol 6.25 Mg Tablet, 3.125 Mg Oral Bedtime Active 03/04/2017 [facility] Ferrous Sulfate 325 Mg Tablet, 325 Mg Oral Daily Active 03/04/2017 [facility] Metolazone 5 Mg Tablet, 2.5 Mg Oral Twice A Day Active 03/04/2017 [facility] Zaroxolyn , 2.5 Mg Oral Twice A Day as needed for Shortness Of Breath Active 03/04/2017 [facility] Lantus 100 units/mL 25 unit, SUB-Q, Bedtime, # 10 mL, 0 Refill(s), Pharmacy: [facility] [id number] Active 02/11/2017 [facility] pneumococcal 13-valent vaccine 0.5 mL, Route: IM, Drug Form: INJ, Daily, Start date: 02/09/17 9:00:00 CDT, Duration: 1 doses or times, Stop date: 02/09/17 9:00:00 CDTNotes: Shake well prior to use (Same as: Prevnar 13) Inactive 02/09/2017 [facility] metolazone 2.5 mg oral tablet 2.5 mg, 1 tab, Route: PO, Drug form: TAB, BID, Dosing Weight 87.5, kg, Start date: 02/09/17 9:00:00 CDT, Duration: 30 day, Stop date: 03/10/17 17:00:00 CSTNotes: (Same as: Zaroxolyn) No Longer Active 02/09/2017 [facility] lisinopril 20 mg, Route: PO, Drug form: TAB, BID, Dosing Weight 87.5, kg, Start date: 02/09/17 9:00:00 CDT, Duration: 30 day, Stop date: 03/10/17 17:00:00 CERTIFIED NUTRITIONIST Inactive 02/09/2017 [facility] gabapentin 300 mg oral capsule 300 mg, 1 cap, Route: PO, Drug form: CAP, Q12H, Dosing Weight 87.5, kg, Start date: 02/09/17 9:00:00 CDT, Duration: 30 day, Stop date: 03/10/17 21:00:00 CSTNotes: (Same as: Neurontin) No Longer Active 02/09/2017 [facility] influenza virus vaccine, inactivated 0.5 mL, Route: IM, Drug Form: SUSP, Daily, Start date: 02/09/17 9:00:00 CDT, Duration: 1 doses or times, Stop date: 02/09/17 9:00:00 CDTNotes: (Same as: Fluzone Quadrivalent, Fluarix Quadrivalent) For 3 years of age and older (0.5 mL IM) Shake well before use Inactive 02/09/2017 [facility] Humalog 10 unit, 0.1 mL, Route: SUB-Q, [...] days from Date No Longer Active 02/09/2017 [facility] NovoLOG 10 unit, Route: SUB-Q, Drug form: SOLN, TID-Before Meals, Dosing Weight 87.5, kg, Start date: 02/09/17 7:30:00 CDT, Duration: 30 day, Stop date: 03/10/17 16:30:00 CERTIFIED NUTRITIONIST Inactive 02/09/2017 [facility] ciprofloxacin 500 mg, 1 tab, Route: PO, Drug form: TAB, [id number], Dosing Weight 87.5, kg, Start date: 02/09/17 1:00:00 CDT, Duration: 30 day, Stop date: 03/10/17 13:00:00 CERTIFIED NUTRITIONIST, ABX Indication: Skin/Soft Tissue Infectio nNotes: May interfere w/enteral feedings - Take 1 hr before or 2 hrs after antacids, dairy pdt & minerals. On empty stomach. Inactive 02/09/2017 [facility] Lantus 100 units/mL 25 unit, 0.25 mL, Route: SUB-Q, Drug form: SOLN, Bedtime, Dosing Weight 87.5, kg, Start date: 02/09/17 0:03:00 CDT, Duration: 30 day, Stop date: 03/10/17 21:00:00 CSTNotes: (Same as: Lantus) Do not hold insulin without contacting prescriber WASTE: F/P - Black; E - [employer] Trash Bin "single patient use only" No Longer Active 02/09/2017 [facility] hydrALAZINE 50 mg oral tablet 50 mg, 1 tab, Route: PO, Drug form: TAB, Q8H, Dosing Weight 87.5, kg, Start date: 02/09/17 0:00:00 CDT, Duration: 30 day, Stop date: 03/10/17 16:00:00 CERTIFIED NUTRITIONIST Inactive 02/09/2017 [facility] lisinopril 20 mg oral tablet 20 mg=1 tab, PO, BID, 0 Refill(s) No Longer Active 02/09/2017 [facility] metolazone 2.5 mg oral tablet 2.5 mg=1 tab, PO, BID, 0 Refill(s) Active 02/09/2017 [facility] furosemide 40 mg oral tablet 80 mg=2 tab, PO, QAM, 0 Refill(s) No Longer Active 02/09/2017 [facility] gabapentin 300 mg oral capsule 300 mg=1 cap, PO, BID, 0 Refill(s) No Longer Active 02/09/2017 [facility] ciprofloxacin 500 mg oral tablet 500 mg=1 tab, PO, Q12H, 0 Refill(s) No Longer Active 02/09/2017 [facility] hydrALAZINE 50 mg oral tablet 50 mg=1 tab, PO, Q8H, 0 Refill(s) No Longer Active 02/09/2017 [facility] NovoLOG 100 units/mL 10 unit, SUB-Q, TID-Before Meals, # 10 mL, 0 Refill(s) Active 02/09/2017 [facility] potassium chloride 10 mEq oral tablet, extended release 10 mEq=1 tab, PO, BID, 0 Refill(s) No Longer Active 02/09/2017 [facility] Lantus 100 units/mL 34 units, SUB-Q, Bedtime, 0 Refill(s) No Longer Active 02/09/2017 [facility] atorvastatin 80 mg oral tablet 80 mg=1 tab, PO, Daily, 0 Refill(s) Active 02/09/2017 [facility] clindamycin 150 mg, PO, Q6H, 2 capsules, 0 Refill(s) Active 02/09/2017 [facility] aspirin 81 mg tablet, chewable 81 mg=1 tab, CHEW, Daily, 0 Refill(s) Active 02/09/2017 [facility] [facility] clindamycin 300 mg, 1 cap, Route: PO, Drug form: CAP, [id number], Dosing Weight 104.545, kg, Start date: 02/08/17 21:00:00 CDT, Duration: 5 day, Stop date: 02/13/17 15:00:00 CERTIFIED NUTRITIONIST, ABX Indication: Skin/Soft Tissue Inf ectionNotes: (Same As: Cleocin) No Longer Active 02/09/2017 [facility] Lipitor 80 mg, 2 tab, Route: PO, Drug form: TAB, Bedtime, Dosing Weight 104.545, kg, Start date: 02/08/17 21:00:00 CDT, Duration: 30 day, Stop date: 03/09/17 21:00:00 CSTNotes: (Same as: Lipitor) No Longer Active 02/09/2017 [facility] Saline Flush 0.9% 10 ml, Route: IVP, Drug Form: INJ, Dosing Weight 104.545, kg, Q12H, Start date: 02/08/17 21:00:00 CDT, Duration: 30 day, Stop date: 03/10/17 9:00:00 CSTNotes: (Same as: BD Posiflush) No Longer Active 02/09/2017 [facility] aspirin 81 mg tablet, enteric coated 81 mg, 1 tab, Route: PO, Drug form: ECTAB, Daily, Dosing Weight 104.545, kg, Start date: 02/08/17 21:00:00 CDT, Duration: 30 day, Stop date: 03/10/17 9:00:00 CSTNotes: Do not crush or chew. (Same As: Ecotrin) No Longer Active 02/09/2017 [facility] hydrALAZINE 10 mg, 0.5 mL, Route: IVP, Drug form: INJ, Q6H, Dosing Weight 104.545, kg, PRN Hypertension, Start date: 02/08/17 20:35:00 CDT, Duration: 30 day, Stop date: 03/10/17 20:34:00 CERTIFIED NUTRITIONIST, FOR sbp > 180 MMNotes: (Same as: Apresoline) Push over 5 minutes No Longer Active 02/09/2017 [facility] insulin lispro 5 unit, 0.05 mL, Route: [...] days from Date No Longer Active 02/09/2017 [facility] glucagon 1 mg, Route: IM, Drug form: PDR/INJ, PRN, Dosing Weight 104.545, kg, PRN Blood Glucose Results, Start date: 02/08/17 20:35:00 CDT, Duration: 30 day, Stop date: 03/10/17 19:34:00 CERTIFIED NUTRITIONIST No Longer Active 02/09/2017 [facility] Dextrose 50% Syringe 25 gm, 50 mL, Route: IVP, Drug Form: INJ, Dosing Weight 104.545, kg, PRN, PRN Blood Glucose Results, Start date: 02/08/17 20:35:00 CDT, Duration: 30 day, Stop date: 03/10/17 19:34:00 CERTIFIED NUTRITIONIST No Longer Active 02/09/2017 [facility] Saline Flush 0.9% 10 ml, Route: IVP, Drug Form: INJ, Dosing Weight 104.545, kg, PRN, PRN Line Flush, Start date: 02/08/17 20:26:00 CDT, Duration: 30 day, Stop date: 03/10/17 19:25:00 CERTIFIED NUTRITIONIST Inactive 02/09/2017 [facility] ondansetron 4 mg, 2 mL, Route: IVP, Drug form: INJ, Q8H, Dosing Weight 104.545, kg, PRN Nausea & Vomiting, Start date: 02/08/17 20:26:00 CDT, Duration: 30 day, Stop date: 03/10/17 20:25:00 CSTNotes: (Same as: Taylor) MEDICATION WASTE Product Size: 4 mg Product Wasted: ___ mg No Longer Active 02/09/2017 [facility] acetaminophen 650 mg, 2 tab, Route: PO, Drug form: TAB, Q4H, Dosing Weight 104.545, kg, PRN Pain 1-3/Temp > 99.5 F, Start date: 02/08/17 20:26:00 CDT, Duration: 30 day, Stop date: 03/10/17 20:25:00 CSTNotes: Do not exceed 4 gm/day. (Same as: Tylenol) No Longer Active 02/09/2017 [facility] bisacodyl 10 mg, 1 supp, Route: IL, Drug form: SUPP, Daily, Dosing Weight 104.545, kg, PRN Constipation, Start date: 02/08/17 20:26:00 CDT, Duration: 30 day, Stop date: 03/10/17 20:25:00 CSTNotes: (Same As: Dulcolax, Bisco-Lax) No Longer Active 02/09/2017 [facility] Saline Flush 0.9% 10 mL, Route: IVP, Drug Form: INJ, Dosing Weight 104.545, kg, PRN, PRN Line Flush, Start date: 02/08/17 16:21:00 CDT, Duration: 30 day, Stop date: 03/10/17 15:20:00 CSTNotes: (Same as: BD Posiflush) No Longer Active 02/08/2017 [facility] Pentoxifylline 400 Mg Tablet.er, 400 Mg Oral Three Times A Day Active 09/20/2016 [facility] Cephalexin 500 Mg Capsule, 500 Mg Oral Three Times A Day Active 09/05/2016 [facility] Ciprofloxacin Hcl (Cipro) 500 Mg Tablet, 500 Mg Oral Every 12 Hours Active 09/05/2016 [facility] Clindamycin Hcl 150 Mg Capsule, 300 Mg Oral Every 8 Hours Active 09/05/2016 [facility] Sulfamethoxazole/Trimethoprim (Bactrim Ds Tablet) 1 Each Tablet, 1 Tab Oral Twice A Day Active 09/05/2016 [facility] Lisinopril (Zestril*) 20 Mg Tablet, 20 Mg Oral Twice A Day Active 02/04/2016 [facility] Acetaminophen With Codeine (Tylenol With Codeine #3 Tablet) 1 Each Tablet, 300 Mg Oral Every 4 Hours Active 09/05/2015 [facility] Famotidine 20 Mg Tab, 20 Mg Oral Daily Active 09/05/2015 [facility] Levofloxacin (Levaquin) 500 Mg Tablet, 500 Mg Oral Daily Active 09/05/2015 [facility] Meclizine Hcl 12.5 Mg Tablet, 25 Mg Oral Twice A Day Active 09/05/2015 [facility] Cholecalciferol (Vitamin D3) (Vitamin D) 5,000 Unit Tablet, 5000 Units Oral Daily Active 04/01/2015 [facility] Aspirin (Aspir 81) 81 Mg Tablet.dr Daily Active [facility] Atorvastatin Calcium 80 Mg Tablet Daily Active [facility] Carvedilol 3.125 Mg Tablet Bedtime Active [facility] Clopidogrel Bisulfate (Clopidogrel) 75 Mg Tablet Daily Active [facility] Famotidine 20 Mg Tab Twice A Day Active [facility] Furosemide 20 Mg Tablet Twice A Day Active [facility] Hydralazine Hcl 10 Mg Tablet Every 8 Hours Active [facility] Insulin Glargine (Lantus 3ML Pen) 100 Units/1 Ml Inj Bedtime Active [facility] Insulin Regular, Human (Novolin R) 100 Unit/1 Ml Vial Three Times A Day Active [facility] Isosorbide Dinitrate 20 Mg Tablet Daily Active [facility] Tamsulosin Hcl (Flomax*) 0.4 Mg Cap Daily Active [facility] Albuterol 0.83 MG/ML Inhalation Solution albuterol sulfate 2.5 mg/3 mL (0.083 %) solution for nebulization Inhale 3 mL 3 times a day by nebulization route as needed. Active [facility] atorvastatin 80 MG Oral Tablet atorvastatin 80 mg tablet TAKE 1 TABLET BY MOUTH EVERYDAY AT BEDTIME Active [facility] Azithromycin 250 MG Oral Tablet azithromycin 250 mg tablet TAKE 2 TABLETS (500 MG) BY ORAL ROUTE ONCE DAILY FOR 1 DAY THEN 1 TABLET (250 MG) BY ORAL ROUTE ONCE DAILY FOR 4 DAYS Active [facility] carvedilol 3.125 MG Oral Tablet carvedilol 3.125 mg tablet TAKE 1 TABLET BY MOUTH EVERYDAY AT BEDTIME Active [facility] clonidine clonidine as needed Active [facility] clopidogrel 75 MG Oral Tablet clopidogrel 75 mg tablet TAKE 1 TABLET BY MOUTH EVERY DAY Active [facility] Fluconazole 150 MG Oral Tablet fluconazole 150 mg tablet Take 1 tablet every day by oral route for 7 days. Active [facility] Furosemide 40 MG Oral Tablet furosemide 40 mg tablet Take 1 tablet twice a day by oral route as needed. Active [facility] Hydralazine Hydrochloride 50 MG Oral Tablet hydralazine 50 mg tablet TAKE 1 TABLET BY MOUTH EVERY 8 HOURS Active [facility] Isosorbide Dinitrate 30 MG Oral Tablet isosorbide dinitrate 30 mg tablet TAKE 1 TABLET BY MOUTH EVERY DAY Active [facility] 3 ML Insulin Glargine 100 UNT/ML Pen Injector [Lantus] Lantus Solostar U-100 Insulin 100 unit/mL (3 mL) subcutaneous pen Inject 24 units every day by subcutaneous route in the morning. Active [facility] 3 ML insulin detemir 100 UNT/ML Pen Injector [Levemir] Levemir FlexTouch U-100 Insulin 100 unit/mL (3 mL) subcutaneous pen Active [facility] Loratadine 10 MG Oral Tablet loratadine 10 mg tablet TAKE 1 TABLET BY MOUTH EVERY DAY NEEDED Active [facility] Lorazepam 2 MG Oral Tablet lorazepam 2 mg tablet Take 1 tablet every day by oral route as needed. Active [facility] medroxyprogesterone acetate 5 MG Oral Tablet medroxyprogesterone 5 mg tablet TAKE 1 TABLET BY MOUTH EVERY DAY Active [facility] Mupirocin 0.02 MG/MG Topical Ointment mupirocin 2 % topical ointment APPLY A SMALL AMOUNT TO THE AFFECTED AREA BY TOPICAL ROUTE 3 TIMES PER DAY Active [facility] Insulin, Aspart, Human 100 UNT/ML Injectable Solution [NovoLog] Novolog U-100 Insulin aspart 100 unit/mL subcutaneous solution Inject 7 units 3 times a day by subcutaneous route as needed for 30 days. Active [facility] Nystatin 296782 UNT/ML Topical Cream nystatin 100,000 unit/gram topical cream Apply 1 application twice a day by topical route for 15 days. Active [facility] Nystatin 100 UNT/MG Topical Powder nystatin 100,000 unit/gram topical powder APPLY TO THE AFFECTED AREA(S) BY TOPICAL ROUTE 2 TIMES PER DAY Active [facility] OneTouch Delica Lancets 33 gauge OneTouch Delica Lancets 33 gauge Active [facility] OneTouch Verio Mid Control solution OneTouch Verio Mid Control solution Active [facility] OneTouch Verio strips OneTouch Verio strips Active [facility] sevelamer carbonate 800 MG Oral Tablet sevelamer carbonate 800 mg tablet Take 1 tablet 3 times a day by oral route for 90 days. Active [facility] Suprep Bowel Prep Kit 17.5 gram-3.13 gram-1.6 gram oral solution Suprep Bowel Prep Kit 17.5 gram-3.13 gram-1.6 gram oral solution Active [facility] Tamsulosin hydrochloride 0.4 MG Oral Capsule tamsulosin 0.4 mg capsule TAKE 1 CAPSULE(S) EVERY DAY BY ORAL ROUTE. Active [facility] Ultra Thin Lancets 31 gauge Ultra Thin Lancets 31 gauge Take 1 each every day by miscell. route for 90 days. Active [facility] Ergocalciferol 59020 UNT Oral Capsule Vitamin D2 50,000 unit capsule Take 1 capsule every week by oral route. Active [facility] Famotidine 20 MG Oral Tablet famotidine 20 mg tablet Active [facility] Acetaminophen 325 MG / Hydrocodone Bitartrate 5 MG Oral Tablet hydrocodone 5 mg-acetaminophen 325 mg tablet Active [facility] Lorazepam 0.5 MG Oral Tablet lorazepam 0.5 mg tablet Take 2 tablets 3 times a day by oral route. Active [facility] Nystatin 100 UNT/MG Topical Powder [Nystop] Nystop 100,000 unit/gram topical powder APPLY TO THE AFFECTED AREA(S) BY TOPICAL ROUTE 2 TIMES PER DAY Active [facility] rivaroxaban 15 MG Oral Tablet [Xarelto] Xarelto 15 mg tablet Take 1 tablet every day by oral route for 90 days. Active [facility] Acyclovir 800 MG Oral Tablet acyclovir 800 mg tablet Active [facility] Aspirin 81 MG Delayed Release Oral Tablet aspirin 81 mg tablet,delayed release Take 1 tablet every day by oral route. Active [facility] Ciprofloxacin 250 MG Oral Tablet ciprofloxacin 250 mg tablet Active [facility] True Metrix Glucose Test Strip True Metrix Glucose Test Strip Take 1 strip every day by miscell. route. Active [facility] Hydroxyzine Hydrochloride 25 MG Oral Tablet hydroxyzine HCl 25 mg tablet Take 1 tablet twice a day by oral route. Do not use benadryl, loratadine or lorazepam while using this med Active [facility] Allergies, Adverse Reactions, Alerts No Known Medication Allergies Immunizations Immunization Date Given Site Status Last Updated Comments Source pneumococcal polysaccharide PPV23 08/08/2018 [facility] pneumococcal 13-valent vaccine 02/09/2017 Left deltoid completed [facility] influenza virus vaccine, inactivated 02/09/2017 Right deltoid completed [facility] pneumococcal 13-valent vaccine 02/09/2017 Left deltoid completed [facility] pneumococcal conjugate PCV 13 02/09/2017 [facility] influenza, unspecified formulation 02/09/2017 [facility] Tdap 04/11/2015 [facility] Results Order Name Results Value Reference Range Date Interpretation Comments Source Alkaline phosphatase isoenzyme [Units/volume] in Serum or Plasma alkaline phosphatase 354 40 - 115 09/19/2018 [facility] Alkaline phosphatase isoenzyme [Units/volume] in Serum or Plasma intestinal isoenzymes 19 1 - 24 09/19/2018 [facility] Alkaline phosphatase isoenzyme [Units/volume] in Serum or Plasma bone isoenzymes 22 28 - 66 09/19/2018 [facility] Alkaline phosphatase isoenzyme [Units/volume] in Serum or Plasma liver isoenzymes 59 25 - 69 09/19/2018 [facility] Alkaline phosphatase isoenzyme [Units/volume] in Serum or Plasma placental isoenzymes 0 09/19/2018 [facility] Comprehensive metabolic 1999 panel - Serum or Plasma ALT 17 0 - 55 09/13/2018 [facility] Comprehensive metabolic 1999 panel - Serum or Plasma AST 22 5 - 34 09/13/2018 [facility] Comprehensive metabolic 1999 panel - Serum or Plasma BUN 41.4 8.4 - 25.0 09/13/2018 [facility] Comprehensive metabolic 1999 panel - Serum or Plasma alk phos 382 40 - 150 09/13/2018 [facility] Comprehensive metabolic 1999 panel - Serum or Plasma glucose 256 70 - 99 09/13/2018 [facility] Comprehensive metabolic 1999 panel - Serum or Plasma albumin 3.2 3.4 - 5.1 09/13/2018 [facility] metabolic 1999 panel - Serum or Plasma creatinine 4.39 0.72 - 1.25 09/13/2018 critical [facility] Comprehensive metabolic 1999 panel - Serum or Plasma eGFR non- 13 09/13/2018 abnormal [facility] Comprehensive metabolic 1999 panel - Serum or Plasma total bilirubin 1.7 0.2 - 1.2 09/13/2018 high [facility] Comprehensive metabolic 1999 panel - Serum or Plasma eGFR - 16 09/13/2018 abnormal [facility] Comprehensive metabolic 1999 panel - Serum or Plasma sodium 137 135 - 145 09/13/2018 [facility] Comprehensive metabolic 1999 panel - Serum or Plasma potassium 4.4 3.5 - 5.1 09/13/2018 [facility] Comprehensive metabolic 1999 panel - Serum or Plasma chloride 96 98 - 110 09/13/2018 low [facility] metabolic 1999 panel - Serum or Plasma total protein 7.2 6.1 - 8.2 09/13/2018 [facility] Comprehensive metabolic 1999 panel - Serum or Plasma calcium 8.8 9.0 - 10.2 09/13/2018 [facility] metabolic 1999 panel - Serum or Plasma CO2 32.2 20.0 - 32.0 09/13/2018 [facility] Comprehensive metabolic 1999 panel - Serum or Plasma anion gap 9 09/13/2018 [facility] Creatine kinase [Enzymatic activity/volume] in Serum or Plasma creatine kinase (CK) 60 30 - 200 09/13/2018 [facility] Hemoglobin A1c/Hemoglobin.total in Blood Hemoglobin A1c/Hemoglobin.total in Blood 8.3 1.0 - 5.7 09/13/2018 [facility] Hemoglobin A1c/Hemoglobin.total in Blood average blood glucose 192 09/13/2018 [facility] Lipid 1995 panel - Serum or Plasma HDL 40 40 - 0 09/13/2018 [facility] Lipid 1995 panel - Serum or Plasma triglyceride 82 0 - 150 09/13/2018 [facility] Lipid 1995 panel - Serum or Plasma VLDL (calculated) 16 09/13/2018 [facility] Lipid 1996 panel - Serum or Plasma cholesterol/HDL ratio 4.1 09/13/2018 [facility] Lipid 1995 panel - Serum or Plasma non-HDL cholesterol (calculated) 124 0 - 160 09/13/2018 [facility] Lipid 1995 panel - Serum or Plasma cholesterol 164 0 - 200 09/13/2018 [facility] Lipid 1995 panel - Serum or Plasma Cholesterol in LDL [Mass/volume] in Serum or Plasma 108 0 - 130 09/13/2018 [facility] Thyrotropin [Units/volume] in Serum or Plasma TSH 2.514 0.350 - 4.940 09/13/2018 [facility] Hemoglobin A1c/Hemoglobin.total in Blood A1C w/EAG 12.6 1.0 - 5.7 03/29/2018 [facility] Hemoglobin A1c/Hemoglobin.total in Blood average blood glucose 315 03/29/2018 [facility] Comprehensive metabolic 1999 panel - Serum or Plasma ALT 16 0 - 55 03/29/2018 [facility] Comprehensive metabolic 1999 panel - Serum or Plasma AST 21 5 - 34 03/29/2018 [facility] Comprehensive metabolic 1999 panel - Serum or Plasma BUN 37.9 8.4 - 25.7 03/29/2018 [facility] Comprehensive metabolic 1999 panel - Serum or Plasma alk phos 371 40 - 150 03/29/2018 [facility] Comprehensive metabolic 1999 panel - Serum or Plasma glucose 306 70 - 99 03/29/2018 [facility] Comprehensive metabolic 1999 panel - Serum or Plasma albumin 3.1 3.5 - 5.0 03/29/2018 [facility] Comprehensive metabolic 1999 panel - Serum or Plasma creatinine 3.72 0.72 - 1.25 03/29/2018 [facility] Comprehensive metabolic 1999 panel - Serum or Plasma eGFR non- 16 03/29/2018 abnormal [facility] Comprehensive metabolic 1999 panel - Serum or Plasma total bilirubin 1.2 0.2 - 1.2 03/29/2018 [facility] Comprehensive metabolic 1999 panel - Serum or Plasma eGFR - 20 03/29/2018 abnormal [facility] Comprehensive metabolic 1999 panel - Serum or Plasma sodium 135 136 - 145 03/29/2018 [facility] metabolic 1999 panel - Serum or Plasma potassium 4.8 3.5 - 5.1 03/29/2018 [facility] Comprehensive metabolic 1999 panel - Serum or Plasma chloride 95 98 - 107 03/29/2018 [facility] metabolic 1999 panel - Serum or Plasma total protein 6.8 6.4 - 8.3 03/29/2018 [facility] Comprehensive metabolic 1999 panel - Serum or Plasma calcium 8.5 8.8 - 10.0 03/29/2018 [facility] metabolic 1999 panel - Serum or Plasma CO2 32.9 23.0 - 31.0 03/29/2018 [facility] Comprehensive metabolic 1999 panel - Serum or Plasma anion gap 7 03/29/2018 [facility] PSA, total 0.49 0.00 - 4.00 03/29/2018 [facility] CHEM PANEL Magnesium Lvl 2.4 1.8 - [...] should be multiplied by the estimated BMI. [facility] CHEM PANEL AST 15 0 - 37 06/08/2017 [facility] CHEM PANEL Alk Phos 161 39 - 136 06/08/2017 [facility] CHEM PANEL ALT 17 0 - 65 06/08/2017 [facility] CHEM PANEL Albumin Lvl 2.4 3.5 - 5.0 06/08/2017 [facility] CHEM PANEL Bili Total 0.6 0.2 - 1.3 06/08/2017 [facility] CHEM PANEL Calcium Lvl 7.9 8.5 - 10.5 06/08/2017 [facility] CHEM PANEL CO2 23 24 - 32 06/08/2017 [facility] CHEM PANEL Total Protein 5.9 6.4 - 8.4 06/08/2017 [facility] CHEM PANEL Creatinine Lvl 3.00 0.50 - 1.40 06/08/2017 [facility] CHEM PANEL BUN 59 7 - 22 [...] PANEL AGAP 14.6 10.0 - 20.0 06/08/2017 [facility] CHEM PANEL A/G Ratio 0.7 0.7 - 1.6 06/08/2017 [facility] HEMATOLOGY Lymphocytes 19.4 20.0 - 40.0 06/08/2017 [facility] HEMATOLOGY Monocytes 10.7 2.0 - 12.0 06/08/2017 [facility] HEMATOLOGY Segs 65.2 45.0 - 75.0 06/08/2017 [facility] HEMATOLOGY Eosinophils # 0.2 0.0 - 0.5 06/08/2017 [facility] HEMATOLOGY Monocytes # 0.6 0.0 - 0.8 06/08/2017 [facility] Lymphocytes # 1.1 1.0 - 5.5 06/08/2017 [facility] HEMATOLOGY Basophils 0.8 0.0 - 1.0 06/08/2017 [facility] Eosinophils 3.9 0.0 - 4.0 06/08/2017 [facility] Segs-Bands # 3.6 1.5 - 8.1 06/08/2017 [facility] MCV 95.2 80.0 - 94.0 06/08/2017 [facility] Hct 26.6 42.0 - 54.0 06/08/2017 [facility] MPV 9.2 7.4 - 10.4 06/08/2017 [facility] Hgb 8.8 14.0 - 18.0 06/08/2017 [facility] MCH 31.5 27.0 - 31.0 06/08/2017 [facility] RBC 2.80 4.70 - 6.10 06/08/2017 [facility] MCHC 33.1 32.0 - 36.0 06/08/2017 [facility] Platelet 151 133 - 450 06/08/2017 [facility] RDW 16.7 11.5 - 14.5 06/08/2017 [facility] WBC 5.6 3.7 - 10.4 06/08/2017 [facility] URINE AND STOOL UA Color Ltyellow 06/07/2017 [facility] URINE AND STOOL UA Urobilinogen <=1.0 mg/dL 0.1 - 1.0 06/07/2017 [facility] URINE AND STOOL UA Sq Epi None Seen 06/07/2017 [facility] URINE AND STOOL UA RBC 6 0 - 2 06/07/2017 [facility] URINE AND STOOL UA Mucus Few /LPF [...] UA Ketones Negative mg/dL Negative mg/dL 06/07/2017 [facility] URINE AND STOOL UA RBC 3 0 - 2 06/07/2017 [facility] URINE AND STOOL UA Amorph Columba Occasional /HPF None Seen /HPF 06/07/2017 [facility] URINE AND STOOL UA Mucus Few /LPF None Seen /LPF 06/07/2017 [facility] URINE AND STOOL UA Bacteria Few /HPF None Seen /HPF 06/07/2017 [facility] URINE AND STOOL UA WBC 2 0 - 5 06/07/2017 [facility] URINE AND STOOL UA Color Ltyellow 06/07/2017 [facility] URINE AND STOOL UA Sq Epi None Seen 06/07/2017 [facility] URINE AND STOOL UA Turbidity Slight *ABN* (06/07/17 3:27 AM) Clear 06/07/2017 [facility] CHEM PANEL Ammonia 37.0 <=45.0 uMol/L 06/07/2017 [facility] CHEM PANEL Lactic Acid Lvl 0.8 0.5 - 2.2 06/07/2017 [facility] CARDIAC ENZYMES CK MB Index 3.2 0.0 - 2.5 06/07/2017 [facility] CARDIAC ENZYMES Troponin-I 0.03 0.00 - 0.40 06/07/2017 [facility] CARDIAC ENZYMES Total CK 112 12 - 191 06/07/2017 [facility] CARDIAC ENZYMES CK MB 3.6 0.5 - 3.6 06/07/2017 [facility] CHEM PANEL Phosphorus 3.3 2.5 - 4.5 06/07/2017 [facility] CHEM PANEL Magnesium Lvl 2.4 1.8 - 2.4 06/07/2017 [facility] ELECTROLYTES AGAP 15.6 10.0 - 20.0 06/07/2017 [facility] ELECTROLYTES Bili Total 0.6 0.2 - 1.3 06/07/2017 [facility] ELECTROLYTES Alk Phos 186 39 - 136 06/07/2017 [facility] ELECTROLYTES B/C Ratio 20 6 - 25 06/07/2017 [facility] ELECTROLYTES A/G Ratio 0.6 0.7 - 1.6 06/07/2017 [facility] ELECTROLYTES Potassium Lvl 4.6 3.5 - 5.1 06/07/2017 [facility] ELECTROLYTES Sodium Lvl 140 135 - 145 06/07/2017 [facility] ELECTROLYTES Globulin 4.4 2.7 - 4.2 06/07/2017 [facility] ELECTROLYTES AST 19 0 - 37 06/07/2017 [facility] ELECTROLYTES Chloride Lvl 107 95 - 109 06/07/2017 [facility] ELECTROLYTES Calcium Lvl 7.8 8.5 - 10.5 06/07/2017 [facility] ELECTROLYTES CO2 22 24 - 32 06/07/2017 [facility] ELECTROLYTES ALT 22 0 - 65 06/07/2017 [facility] ELECTROLYTES Albumin Lvl 2.5 3.5 - 5.0 06/07/2017 [facility] ELECTROLYTES Total Protein 6.9 6.4 - 8.4 06/07/2017 [facility] ELECTROLYTES eGFR 19 06/07/2017 Result Comment: The [...] should be multiplied by the estimated BMI. [facility] ELECTROLYTES Creatinine Lvl 3.14 0.50 - 1.40 06/07/2017 [facility] ELECTROLYTES BUN 63 7 - 22 06/07/2017 [facility] ELECTROLYTES Glucose Lvl 246 70 - 99 06/07/2017 [facility] HEMATOLOGY Segs-Bands # 7.8 1.5 - 8.1 06/07/2017 [facility] HEMATOLOGY Monocytes # 0.7 0.0 - 0.8 06/07/2017 [facility] HEMATOLOGY Lymphocytes 8.0 20.0 - 40.0 06/07/2017 [facility] HEMATOLOGY Lymphocytes # 0.7 1.0 - 5.5 06/07/2017 [facility] HEMATOLOGY Monocytes 7.3 2.0 - 12.0 06/07/2017 [facility] HEMATOLOGY Eosinophils 0.5 0.0 - 4.0 06/07/2017 [facility] Basophils 0.5 0.0 - 1.0 06/07/2017 [facility] HEMATOLOGY Segs 83.7 45.0 - 75.0 06/07/2017 [facility] MPV 9.0 7.4 - 10.4 06/07/2017 [facility] MCH 31.0 27.0 - 31.0 06/07/2017 [facility] HEMATOLOGY Hct 28.5 42.0 - 54.0 06/07/2017 [facility] HEMATOLOGY MCV 96.4 80.0 - 94.0 06/07/2017 [facility] RBC 2.96 4.70 - 6.10 06/07/2017 [facility] HEMATOLOGY Hgb 9.2 14.0 - 18.0 06/07/2017 [facility] HEMATOLOGY WBC 9.3 3.7 - 10.4 06/07/2017 [facility] HEMATOLOGY RDW 16.3 11.5 - 14.5 06/07/2017 [facility] HEMATOLOGY Platelet 137 133 - 450 06/07/2017 [facility] MCHC 32.2 32.0 - 36.0 06/07/2017 [facility] HEMATOLOGY INR 1.19 0.85 - 1.17 06/07/2017 [facility] PT 15.2 12.0 - 14.7 06/07/2017 [facility] PTT 47.7 22.9 - 35.8 06/07/2017 [facility] 25-Hydroxyvitamin D [Mass/volume] in Serum or Plasma vitamin D,25-oh,total,ia 14 30 - 100 03/15/2017 [facility] Comprehensive metabolic 1999 panel - Serum or Plasma glucose 512 65 - 99 03/13/2017 [facility] Comprehensive metabolic 1999 panel - Serum or Plasma urea nitrogen (BUN) 53 7 - 25 03/13/2017 [facility] Comprehensive metabolic 1999 panel - Serum or Plasma creatinine 2.38 0.70 - 1.25 03/13/2017 [facility] Comprehensive metabolic 1999 panel - Serum or Plasma eGFR non-afr. brit[place] islander 27 > or=60 03/13/2017 [facility] Comprehensive metabolic 1999 panel - Serum or Plasma eGFR 31 > or=60 03/13/2017 [facility] Comprehensive metabolic 1999 panel - Serum or Plasma BUN/creatinine ratio 22 6 - 22 03/13/2017 [facility] Comprehensive metabolic 1999 panel - Serum or Plasma sodium 131 135 - 146 03/13/2017 [facility] Comprehensive metabolic 1999 panel - Serum or Plasma potassium 4.8 3.5 - 5.3 03/13/2017 [facility] Comprehensive metabolic 1999 panel - Serum or Plasma chloride 95 98 - 110 03/13/2017 [facility] Comprehensive metabolic 1999 panel - Serum or Plasma carbon dioxide 26 20 - 31 03/13/2017 [facility] Comprehensive metabolic 1999 panel - Serum or Plasma calcium 8.9 8.6 - 10.3 03/13/2017 [facility] Comprehensive metabolic 1999 panel - Serum or Plasma protein, total 6.6 6.1 - 8.1 03/13/2017 [facility] Comprehensive metabolic 1999 panel - Serum or Plasma albumin 3.2 3.6 - 5.1 03/13/2017 [facility] Comprehensive metabolic 1999 panel - Serum or Plasma globulin 3.4 1.9 - 3.7 03/13/2017 [facility] Comprehensive metabolic 1999 panel - Serum or Plasma albumin/globulin ratio 0.9 1.0 - 2.5 03/13/2017 [facility] Comprehensive metabolic 1999 panel - Serum or Plasma bilirubin, total 0.5 0.2 - 1.2 03/13/2017 [facility] Comprehensive metabolic 1999 panel - Serum or Plasma alkaline phosphatase 146 40 - 115 03/13/2017 [facility] Comprehensive metabolic 1999 panel - Serum or Plasma AST 11 10 - 35 03/13/2017 [facility] Comprehensive metabolic 1999 panel - Serum or Plasma ALT 9 9 - 46 03/13/2017 [facility] Lipid 1995 panel - Serum or Plasma cholesterol, total 268 <200 03/13/2017 [facility] Lipid 1995 panel - Serum or Plasma HDL cholesterol 50 >40 03/13/2017 [facility] Lipid 1995 panel - Serum or Plasma triglycerides 238 <150 03/13/2017 [facility] Lipid 1995 panel - Serum or Plasma LDL-cholesterol 178 03/13/2017 [facility] Lipid 1995 panel - Serum or Plasma chol/HDLC ratio 5.4 <5.0 03/13/2017 [facility] Lipid 1995 panel - Serum or Plasma non HDL cholesterol 218 <130 03/13/2017 [facility] Magnesium [Mass/volume] in Serum or Plasma magnesium 2.2 1.5 - 2.5 03/13/2017 [facility] Phosphate [Mass/volume] in Serum or Plasma phosphate ( phosphorus) 4.6 2.1 - 4.3 03/13/2017 [facility] Thyrotropin [Units/volume] in Serum or Plasma TSH 1.83 0.40 - 4.50 03/13/2017 [facility] Hemoglobin A1c/Hemoglobin.total in Blood hemoglobin A1C >14.0 <5.7 03/13/2017 [facility] Erythrocyte sedimentation rate by Westergren method sed rate by modified westergren 92 < or=20 03/12/2017 [facility] CBC W Auto Differential panel - Blood white blood cell count 7.5 3.8 - 10.8 03/12/2017 [facility] CBC W Auto Differential panel - Blood red blood cell count 4.35 4.20 - 5.80 03/12/2017 [facility] CBC W Auto Differential panel - Blood hemoglobin 12.9 13.2 - 17.1 03/12/2017 [facility] CBC W Auto Differential panel - Blood hematocrit 39.9 38.5 - 50.0 03/12/2017 [facility] CBC W Auto Differential panel - Blood MCV 91.7 80.0 - 100.0 03/12/2017 [facility] CBC W Auto Differential panel - Blood MCH 29.7 27.0 - 33.0 03/12/2017 [facility] CBC W Auto Differential panel - Blood MCHC 32.3 32.0 - 36.0 03/12/2017 [facility] CBC W Auto Differential panel - Blood RDW 12.2 11.0 - 15.0 03/12/2017 [facility] CBC W Auto Differential panel - Blood platelet count 281 140 - 400 03/12/2017 [facility] CBC W Auto Differential panel - Blood MPV 11.0 7.5 - 12.5 03/12/2017 [facility] CBC W Auto Differential panel - Blood absolute neutrophils 5730 1500 - 7800 03/12/2017 [facility] CBC W Auto Differential panel - Blood absolute lymphocytes 1013 850 - 3900 03/12/2017 [facility] CBC W Auto Differential panel - Blood absolute monocytes 578 200 - 950 03/12/2017 [facility] CBC W Auto Differential panel - Blood absolute eosinophils 98 15 - 500 03/12/2017 [facility] CBC W Auto Differential panel - Blood absolute basophils 83 0 - 200 03/12/2017 [facility] CBC W Auto Differential panel - Blood neutrophils 76.4 03/12/2017 [facility] CBC W Auto Differential panel - Blood lymphocytes 13.5 03/12/2017 [facility] CBC W Auto Differential panel - Blood monocytes 7.7 03/12/2017 [facility] CBC W Auto Differential panel - Blood eosinophils 1.3 03/12/2017 normal [facility] CBC W Auto Differential panel - Blood basophils 1.1 03/12/2017 normal [facility] CHEM PANEL Calcium Lvl 7.6 8.5 - 10.5 02/10/2017 [facility] CHEM PANEL CO2 28 24 - 32 02/10/2017 [facility] CHEM PANEL AGAP 10.5 10.0 - 20.0 02/10/2017 [facility] CHEM PANEL eGFR 30 02/10/2017 Result Comment: [...] should be multiplied by the estimated BMI. [facility] CHEM PANEL Potassium Lvl 3.5 3.5 - 5.1 02/10/2017 [facility] CHEM PANEL Chloride Lvl 106 95 - 109 02/10/2017 [facility] CHEM PANEL Sodium Lvl 141 135 - 145 02/10/2017 [facility] CHEM PANEL Creatinine Lvl 2.20 0.50 - 1.40 02/10/2017 [facility] CHEM PANEL BUN 38 7 - 22 02/10/2017 [facility] CHEM PANEL Glucose Lvl 85 70 - 99 02/10/2017 [facility] HEMATOLOGY MPV 8.0 7.4 - 10.4 02/10/2017 [facility] HEMATOLOGY Platelet 224 133 - 450 02/10/2017 [facility] HEMATOLOGY RDW 13.6 11.5 - 14.5 02/10/2017 [facility] HEMATOLOGY MCV 93.3 80.0 - 94.0 02/10/2017 [facility] HEMATOLOGY Hct 32.3 42.0 - 54.0 02/10/2017 [facility] HEMATOLOGY MCHC 34.0 32.0 - 36.0 02/10/2017 [...] HEMATOLOGY Segs 62.8 45.0 - 75.0 02/10/2017 [facility] CHEM PANEL Bili Total 0.6 0.2 - 1.3 02/09/2017 [facility] CHEM PANEL Alk Phos 121 39 - 136 02/09/2017 [facility] CHEM PANEL Calcium Lvl 8.0 8.5 - [...] Creatinine Lvl 2.33 0.50 - 1.40 02/09/2017 [facility] CHEM PANEL Sodium Lvl 140 135 - 145 02/09/2017 [facility] CHEM PANEL BUN 32 7 - 22 02/09/2017 [facility] CHEM PANEL AGAP 12.8 10.0 - 20.0 02/09/2017 [facility] CHEM PANEL Chloride Lvl 104 95 - 109 02/09/2017 [facility] CHEM PANEL CO2 27 24 - 32 02/09/2017 [facility] CHEM PANEL Glucose Lvl 262 70 - 99 02/09/2017 [facility] CHEM PANEL eGFR 28 02/09/2017 Result Comment: [...] should be multiplied by the estimated BMI. [facility] CARDIAC ENZYMES CK MB Index 3.8 0.0 - 2.5 02/08/2017 [facility] CARDIAC ENZYMES Troponin-I 0.05 0.00 - 0.40 02/08/2017 [facility] CARDIAC ENZYMES CK MB 3.1 0.5 - 3.6 02/08/2017 [facility] CARDIAC ENZYMES Total CK 81 12 - 191 02/08/2017 [facility] ELECTROLYTES AGAP 9.3 10.0 - 20.0 02/08/2017 [facility] ELECTROLYTES eGFR 26 02/08/2017 Result Comment: The [...] should be multiplied by the estimated BMI. [facility] ELECTROLYTES CO2 29 24 - 32 02/08/2017 [facility] ELECTROLYTES Chloride Lvl 105 95 - 109 02/08/2017 [facility] ELECTROLYTES Calcium Lvl 8.2 8.5 - 10.5 02/08/2017 [facility] ELECTROLYTES Glucose Lvl 78 70 - 99 02/08/2017 [facility] ELECTROLYTES BUN 29 7 - 22 02/08/2017 [facility] ELECTROLYTES Creatinine Lvl 2.50 0.50 - 1.40 02/08/2017 [facility] ELECTROLYTES Sodium Lvl 140 135 - 145 02/08/2017 [facility] ELECTROLYTES Potassium Lvl 3.3 3.5 - 5.1 02/08/2017 [facility] HEMATOLOGY Basophils 0.6 0.0 - 1.0 02/08/2017 [facility] HEMATOLOGY Eosinophils 0.2 0.0 - 4.0 02/08/2017 [facility] HEMATOLOGY Lymphocytes # 0.7 1.0 - 5.5 02/08/2017 [facility] HEMATOLOGY Segs-Bands # 8.2 1.5 - 8.1 02/08/2017 [facility] HEMATOLOGY Basophils # 0.1 0.0 - 0.2 02/08/2017 [facility] HEMATOLOGY Monocytes # 0.5 0.0 - 0.8 02/08/2017 [facility] HEMATOLOGY Lymphocytes 7.0 20.0 - 40.0 02/08/2017 [facility] HEMATOLOGY Segs 86.6 45.0 - 75.0 02/08/2017 [facility] HEMATOLOGY Monocytes 5.6 2.0 - 12.0 02/08/2017 [facility] HEMATOLOGY PTT 37.1 22.9 - 35.8 02/08/2017 [facility] HEMATOLOGY PT 13.3 12.0 - 14.7 02/08/2017 [facility] HEMATOLOGY INR 1.01 0.85 - 1.17 02/08/2017 [facility] HEMATOLOGY MCHC 33.2 32.0 - 36.0 02/08/2017 [facility] HEMATOLOGY RBC 3.83 4.70 - 6.10 02/08/2017 [facility] HEMATOLOGY WBC 9.4 3.7 - 10.4 02/08/2017 [facility] Hgb 11.9 14.0 - 18.0 02/08/2017 [facility] Platelet 251 133 - 450 02/08/2017 [facility] RDW 13.6 11.5 - 14.5 02/08/2017 [facility] MPV 8.4 7.4 - 10.4 02/08/2017 [facility] MCV 93.7 80.0 - 94.0 02/08/2017 [facility] Hct 35.9 42.0 - 54.0 02/08/2017 [facility] MCH 31.1 27.0 - 31.0 02/08/2017 [facility] LIPIDS Chol 303 <=199 mg/dL 02/08/2017 [facility] LIPIDS HDL 56 >=61 mg/dL 02/08/2017 [facility] LIPIDS VLDL 27 02/08/2017 [facility] LIPIDS LDL (Calculated) 220 <=99 mg/dL 02/08/2017 [facility] LIPIDS Trig 133 <=149 mg/dL 02/08/2017 [facility] LIPIDS CHD Risk 5.41 4.00 - 7.30 02/08/2017 [facility] SPECIAL CHEMISTRY Hgb A1C 12.9 <=5.6 % 02/08/2017 [facility] Pathology Reports No Data Provided for This [...] speech pathology report for further details. SL: [id number] 06/08/2017 [facility] Brain wo contrast CT Clinical Indication: Head [...] chronic microvascular ischemic changes. SL: KPATEL-M 06/07/2017 [facility] Spine cervical wo contrast CT Clinical Indication: [...] acute fractures or subluxations. SL: KPATEL-M 06/07/2017 [facility] Pelvis AP DX Clinical Indication: Status post [...] within the visualized spine. SL: UMMTEL-M 06/07/2017 [facility] Chest 1view DX EXAM: Chest x-ray one [...] evidence of pulmonary edema. SL: UKJOHN-Emilie 06/07/2017 [facility] Retroperitoneal Complete US Clinical Indication: - CHAI, [...] 1. Unremarkable renal U/S SL: SROSENBLUM-PC 02/09/2017 [facility] Esophagus BA swallow function video DX Patient Name: EDWIGE HORVATH : 1950; Age: 66 years Male MR: [id number] Study: Esophagus BA swallow function video DX [...] penetration with deep penetration on partial volumes. [place] consistency barium: Flash penetration. Pudding coated barium: No aspiration or any significant laryngeal penetration. Barium with cracker preparation: No aspiration or any significant laryngeal penetration. SL: [id number] 02/09/2017 [facility] contrast MRI Clinical Indication: Slurred speech and [...] disease changes/small vessel disease. SL: KPATEL-M 02/09/2017 [facility] contrast MRA Clinical Indication: Patient complained of slurred speech and unsteady gait since this morning. Stroke Comparison: CT head 02/08/2017. Technique: Magnetic resonance angiography of the [place] was performed without contrast. 3D [...] hypoplasia or severe stenosis. SL: KPANESS 02/09/2017 [facility] Neck wo contrast MRA Clinical Indication: Slurred [...] or left vertebral arteries. SL: KPANESS 02/09/2017 [facility] Brain contrast CT Study: Brain wo contrast [...] skull is intact. Mild left frontal and iohy-pu-uahpambl bilateral ethmoid air cell opacification is present. [...] would be recommended for further assessment. SL: [id number] 02/08/2017 [facility] Brain wo contrast CT I have been advised from the scanning technologist from [facility] [place] that the incorrect name was applied to this examination and should be disregarded. A report will be faxed to the [facility] Emergency Department. Clinical Indication: ct [id number] - right sided drift, slurred speech, woke [...] hemorrhage. Report will be faxed to the [facility] Emergency Department following the dictation at 5:23 PM SL: [id number] 02/08/2017 [facility] Chest 1view DX Chest 1view DX 66 [...] of acute cardiopulmonary disease. SL: SSMILEY-MEGA 02/08/2017 [facility] Consultation Notes No Data Provided for This Section Discharge Summaries No Data Provided for This Section History and Physicals No Data Provided for This Section Vital Signs Vital Sign Value Date Comments Source Diastolic (mm Hg) 50 10/10/2018 [facility] Height 69 10/10/2018 [facility] Systolic (mm Hg) 110 10/10/2018 [facility] Weight 188 10/10/2018 [facility] Diastolic (mm Hg) 68 09/12/2018 [facility] Diastolic (mm Hg) 91 06/09/2017 [facility] Temperature Oral (F) 98.3 F 06/09/2017 [facility] Systolic (mm Hg) 173 06/08/2017 [facility] Diastolic (mm Hg) 82 06/08/2017 [facility] Heart Rate 60 06/08/2017 [facility] Respitory Rate 16 06/08/2017 [facility] Temperature Oral (F) 98.1 F 06/08/2017 [facility] Heart Rate 60 06/08/2017 [facility] Respitory Rate 16 06/08/2017 [facility] Systolic (mm Hg) 173 06/08/2017 [facility] Diastolic (mm Hg) 82 06/08/2017 [facility] Temperature Oral (F) 98.1 F 06/08/2017 [facility] [...] Family Practice Systolic (mm Hg) 153 02/11/2017 [facility] Diastolic (mm Hg) 77 02/11/2017 [facility] Temperature Oral (F) 98.0 F 02/11/2017 [facility] Respitory Rate 16 02/11/2017 [facility] Heart Rate 60 02/11/2017 [facility] Respitory Rate 16 02/11/2017 [facility] Systolic (mm Hg) 157 02/11/2017 [facility] Diastolic (mm Hg) 80 02/11/2017 [facility] Heart Rate 57 02/11/2017 [facility] Temperature Oral (F) 98.1 F 02/11/2017 [facility] Heart Rate 58 02/11/2017 [facility] Respitory Rate 16 02/11/2017 [facility] Temperature Oral (F) 97.8 F 02/11/2017 [facility] Systolic (mm Hg) 121 02/11/2017 [facility] Diastolic (mm Hg) 61 02/11/2017 [facility] BMI Calculated 28.49 02/09/2017 [facility] Height 175.26 cm 02/09/2017 [facility] Weight 87.5 02/09/2017 [facility] BMI Calculated 33.07 02/08/2017 [facility] Weight 104.545 02/08/2017 [facility] Height 177.8 cm 02/08/2017 [facility] Encounters Location Location Details Encounter Type Encounter Number Reason For Visit Attending Provider ADM Date DC Date Status Source [facility] Observation [id number] Sanya Kumar 02/08/2017 02/11/2017 [facility] - Care Management Анна Novoa: [address], [address], [place] [address], Ph. [id number] Анна Novoa 03/08/2017 [facility] Ramonita Allan MD: [address] [place] [address], Ph. [id number] Ramonita Allan 03/11/2017 [facility] Ramonita Allan MD: [address] [place] [address], Ph. [id number] Ramonita Allan 03/22/2017 [facility] - [facility]: [address], [address], [place] [address], Ph. [id number] [facility] 04/06/2017 [facility] Ramonita Allan MD: [address] [place] [address], Ph. [id number] Ramonita Allan 04/12/2017 [facility] [address], [address], [place] [address], Ph. [id number] [facility] 04/21/2017 [facility] - Care Management Анна Novoa: [address], [address], [place] [address], Ph. [id number] Анна Novoa 05/02/2017 [facility] Ramonita Allan MD: [facility] [place] [address], Ph. [id number] Ramonita Allan 05/10/2017 [facility] - Care Management Анна Novoa: [address], [address], [place] [address], Ph. [id number] Анна Novoa 05/11/2017 [facility] Joseph Miller MD: [address] [place] [address], Ph. [id number] Joseph Miller 05/18/2017 [facility] Ramonita Allan MD: [facility] [place] [address], Ph. [id number] Ramonita Allan 05/24/2017 [facility] - Care Management Анна Novoa: [address], [address], [place] [address], Ph. [id number] Анна Novoa 05/25/2017 [facility] - Care Management Анна Novoa: [address], [address], [place] [address], Ph. [id number] Анна Novoa 06/01/2017 [facility] Observation [id number] April Arthur 06/07/2017 06/09/2017 [facility] Practice - Care Management Анна Novoa: [address], [address], [place] [address], Ph. [id number] Анна Novoa 06/15/2017 [facility] Ramonita Allan MD: [address] [place] [address], Ph. [id number] Ramonita Allan 03/28/2018 [facility] Ramonita Allan MD: [address] [place] [address], Ph. [id number] Ramonita Allan 04/25/2018 [facility] Ramonita Allan MD: [address] [place] [address], Ph. [id number] Ramonita Allan 04/25/2018 [facility] Ramonita Allan MD: [address] [place] [address], Ph. [id number] Ramonita Allan 04/25/2018 [facility] MD: [address] [place] [address], Ph. [id number] Ramonita Allan 05/23/2018 [facility] Ramonita Allan MD: [facility] [place] [address], Ph. [id number] Ramonita Allan 05/23/2018 [facility] Ramonita Allan MD: [address] [place] [address], Ph. [id number] Ramonita Allan 07/11/2018 [facility] Ramonita Allan MD: [address] [place] [address], Ph. [id number] Ramonitaconsuelo Allan 07/11/2018 [facility] Departed Emergency Room [id number] EDUARDO DEL CID MD 07/26/2018 07/26/2018 [facility] Ramonita Allan MD: [address] [place] [address], Ph. [id number] Ramonita Allan 08/08/2018 [facility] Ramonita Allan MD: [address] [place] [address], Ph. [id number] Ramonita Allan 08/08/2018 [facility] Ramonita Allan MD: [address] [place] [address], Ph. [id number] Ramonita Allan 09/12/2018 [facility] Ramonita Allan MD: [address] [place] [address], Ph. [id number] Ramonita Allan 09/12/2018 [facility] Ramonita Allan MD: [address] [place] [address], Ph. [id number] Ramonitaconsuelo Allan 10/10/2018 [facility] Procedures Procedure Code Date Perfomer Comments Source Pacemaker 07/07/2018 [facility] Fistula Cannulation Set, Ea [id number] 06/09/2017 [facility] Other 04/11/2017 [facility] Amputation 04/11/2005 [facility] Stent placement [id number] [facility] Assessment and Plan Assessment and Plan Date [...] Date: 02/11/17 NEUROLOGY Progress Note - Daily [facility] Completed: Feb, 09:03 by Maria Isabel [place] [...] intact ftn, hts Abnormal movements: none Coordination vcupwz-us-uisc is intact Gait patient stood up and [...] mg PO Q4H 02/08/17 bisacodyl 10 mg [place] Daily 02/08/17 glucagon 1 mg IM PRN [...] expect 1 midnight stay for now 02/11/2017 [facility] Plan of Care Plan of Care Date Source Discharge Date 07/26/18 8:29pm Disposition LEFT AFTER MEDICAL SCREENING Condition at Discharge Other Forms Provided Work/School Excuse Prescriptions See Medication Section 07/26/2018 [facility] Social History Social History Date Source [...] 05/27/2017 4:15pm Not Applicable Not Applicable 07/26/2018 [facility] Social History TypeResponse Smoking Status Never smoker; Previous treatment: None; Ready to change: No; Concerns about tobacco use in household: No; Exposure to Tobacco Smoke None; Cigarette Smoking Last 365 Days No; Reg Smoking Cessation Counseling No entered on: 06/07/17 06/07/2017 [facility] Smoking Status Former Smoker (1 PPW) 03/11/2017 [facility] Family History No Data Provided for This Section Advance Directives Order Name Results Value Date Source Advance Directives Advance Directives Directive Response Recorded Date/Time Does the patient have an advance directive? No 05/27/17 4:15pm If yes, is advance directive on file with [facility]? No 05/27/17 4:15pm If not on file with [facility] will patient provide a copy? No 05/27/17 4:15pm 07/26/2018 [facility] Functional Status No Data Provided for This Section
[2018-12-31 15:52] LABS: BASOPHILS % 0.7 % (0.0-1.0); EOSINOPHILS # (AUTO) 0.2 (0.0-0.4); HEMATOCRIT 28.2 % (38.2-49.6); HEMOGLOBIN 9.4 g/dL (14.0-18.0); LYMPHOCYTES # (AUTO) 0.7 (1.0-3.2); LYMPHOCYTES % 15.1 % (18.0-39.1); MEAN CORPUSCULAR HEMOGLOBIN 33.1 pg (28-32); MEAN CORPUSCULAR HGB CONC 33.3 g/dL (31-35); MEAN CORPUSCULAR VOLUME 99.3 fL (81-99); MONOCYTES # (AUTO) 0.6 (0.2-0.8); MONOCYTES % 12.8 % (4.4-11.3); PLATELET COUNT 98 x10e3/uL (140-360); RED BLOOD COUNT 2.84 x10e6/uL (4.3-5.7); RED CELL DISTRIBUTION WIDTH 14.7 % (11.7-14.4)
[2018-12-31 16:04] LABS: INR 1.17; PROTHROMBIN TIME 15.5 seconds (11.9-14.5)
[2018-12-31 16:05] LABS: PARTIAL THROMBOPLASTIN TIME 39.9 seconds (23.8-35.5)
[2018-12-31 16:16] LABS: CLARITY,URINE CLEAR (CLEAR); COLOR,URINE YELLOW (YELLOW)
[2018-12-31 16:18] LABS: ALBUMIN 3.3 g/dL (3.5-5.0); ALBUMIN/GLOBULIN RATIO 0.9 (0.8-2.0); ANION GAP 18.2 mmol/L (8-16); CREATININE, SERUM 6.01 mg/dL (0.72-1.25); LEUKOCYTE ESTERASE ,URINE TRACE (NEGATIVE); MAGNESIUM 2.4 MG/DL (1.3-2.1); NITRITE,URINE NEGATIVE (NEGATIVE); POTASSIUM 4.2 mmol/L (3.5-5.1); PROTEIN,URINE DIPSTICK TRACE (NEGATIVE)
[2018-12-31 16:19] LABS: BACTERIA,URINE RARE /HPF; BILIRUBIN,URINE NEGATIVE (NEGATIVE); KETONES,URINE NEGATIVE (NEGATIVE); RBC,URINE 0-5 /HPF (0-5); URINE UROBILINOGEN 0.2 mg/dL (0.2 - 1); WBC,URINE (MAN) 0-5 /HPF (0-5)
[2018-12-31 16:20] LABS: EPITHELIAL CELLS,URINE FEW /LPF
--- NOTE | 2018-12-31 16:21 | Diagnostic Imaging Report ---
Examination: Single AP view of the chest. COMPARISON: 10/17/2018 INDICATION: Fall, pain DISCUSSION: Right subclavian approach implantable cardiac device body and leads are unchanged in position. Unchanged moderate enlargement of the cardiac silhouette with prominence of the central pulmonary vasculature. No new consolidation or effusion. No acute osseous abnormality. IMPRESSION: Enlargement of the cardiac silhouette with pulmonary venous congestion similar to that noted 10/17/2018. Signed by: Dr. Bentley Aguiar M.D. on 12/31/2018 4:18 PM
[2018-12-31 16:26] LABS: CREATINE KINASE MB 2.9 ng/mL (0-5.0)
--- NOTE | 2018-12-31 16:26 | Diagnostic Imaging Report ---
Exams: Head and cervical spine CTs without IV contrast History: Trauma, fall Comparison studies: Head CT 03/04/2017 Technique: Axial images were obtained from the brain and cervical spine. Coronal and sagittal images reconstructed from the axial data. Dose modulation, iterative reconstruction, and/or weight based adjustment of the mA/kV was utilized to reduce the radiation dose to as low as reasonably achievable. Intravenous contrast: None Findings: Head CT: Scalp: No abnormalities. Bones: No fractures, blastic or lytic lesions. Extra-axial spaces: No masses. No fluid collections. Brain sulci: Mildly prominent. Ventricles: Mild compensatory dilatation. No hydrocephalus. Parenchyma: No mass, acute hemorrhage or acute or chronic cortical insults. A few scattered hypodensities in the supratentorial white matter are nonspecific but are most compatible with chronic microvascular ischemic changes. Unchanged small chronic lacunar infarct in the lia. Sellar/suprasellar region: No abnormalities. Craniocervical junction: The foramen magnum is patent. No Chiari one malformation. Included paranasal sinuses: Scattered nonspecific mucosal thickening throughout the paranasal sinuses Incidental findings: Lens replacements for previous cataract surgery. Vascular calcifications in the carotid siphons, left intradural vertebral artery and extracranial ECA branches, degree of which can be seen in patients with chronic kidney disease. Cervical spine CT: Fractures: None. Soft tissues: No gross abnormalities. Atlantoaxial articulation: Intact. Alignment: Normal lordosis. No scoliosis. Cervicomedullary junction: No abnormalities. The foramen magnum is patent. Vertebrae: No infection or neoplasm. Degenerative changes: Mild multilevel disc degeneration. Mild canal stenosis at C3-C4 and C4-C5 due to small disc osteophyte complexes. Advanced multilevel facet arthrosis. Moderate left and mild right foraminal stenosis at C3-C4 and at C4-C5 due to uncovertebral facet arthrosis. Incidental findings: Calcified 3 mm right upper lobe granuloma. Partially imaged cardiac device implanted in the right chest wall. Scattered calcified atherosclerosis in the neck with moderate calcified atherosclerosis at the carotid bulbs. IMPRESSION: Head CT: 1. No acute abnormalities. 2. No changes from the prior head CT of 09/18/2016. 3. Mild generalized brain volume loss. 4. Mild chronic microvascular ischemic changes and chronic pontine lacunar infarct. Cervical spine CT: 1. No cervical spine fracture or subluxation. 2. Multilevel degenerative changes as described. 3. Cannot exclude ligament, spinal cord and or vascular abnormalities on the basis of this examination. Signed by: Dr. Bentley Florentino M.D. on 12/31/2018 4:22 PM
[2018-12-31] MEDS ORDERED: CEFTRIAXONE SOD 1 GM/NS 50 ML 50 ML IV ONE (16:45)
[2018-12-31] MEDS ORDERED: ONDANSETRON HCL INJ 2MG/ML 2ML 2 MG/ML VIAL IV PRN (17:00)
--- OUTSIDE RECORDS SUMMARY | 2018-12-31 17:16 | XMS REPORT | Continuity of Care Document ---
Author Author [employer] Organization [employer] Address Unknown Phone Unavailable Care Team Providers Care Bilingual Patient Support Caseworker Name Role Phone [employer] Unavailable Unavailable Problems Problem Status Onset Date Classification Date Reported Comments Source Open wound of lower leg 10/11/2018 Diagnosis 10/11/2018 [facility] Coronary arteriosclerosis 10/11/2018 Diagnosis 10/11/2018 [facility] Peripheral vascular disease 10/11/2018 Diagnosis 10/11/2018 [facility] Hospital patient 10/11/2018 Diagnosis 10/11/2018 [facility] Amputated big toe 10/10/2018 Diagnosis 10/11/2018 [facility] Onychomycosis of toenails 10/10/2018 Diagnosis 10/11/2018 [facility] Pruritus of skin 10/10/2018 Diagnosis 10/11/2018 [facility] Amputated Big Toe 10/10/2018 Problem 10/11/2018 [facility] Deep venous thrombosis of upper extremity 09/13/2018 Diagnosis 10/11/2018 [facility] Abnormal Gait Due to Muscle Weakness 09/13/2018 Problem 10/11/2018 [facility] Abnormal gait due to muscle weakness 09/12/2018 Diagnosis 10/11/2018 [facility] Congestive heart failure 09/12/2018 Diagnosis 10/11/2018 [facility] End stage renal failure on dialysis 09/12/2018 Diagnosis 10/11/2018 [facility] Body mass index 25-29 - overweight 09/12/2018 Diagnosis 10/11/2018 [facility] Productive cough 09/12/2018 Diagnosis 10/11/2018 [facility] Type II diabetes mellitus uncontrolled 09/12/2018 Diagnosis 10/11/2018 [facility] Carpal Tunnel Syndrome 08/27/2018 Problem 10/11/2018 [facility] Diabetic neuropathy 08/09/2018 Diagnosis 08/09/2018 [facility] Stented coronary artery 08/09/2018 Diagnosis 08/09/2018 [facility] Deep Venous Thrombosis of Upper Extremity 08/09/2018 Problem 10/11/2018 [facility] Screening for malignant neoplasm of colon 08/08/2018 Diagnosis 08/09/2018 [facility] Immunization 08/08/2018 Diagnosis 08/09/2018 [facility] Screening for osteoporosis 08/08/2018 Diagnosis 08/09/2018 [facility] Essential hypertension 07/11/2018 Diagnosis 08/09/2018 [facility] History of cerebrovascular accident 07/11/2018 Diagnosis 08/09/2018 [facility] Chronic obstructive lung disease 05/23/2018 Diagnosis 06/09/2018 [facility] Angina pectoris 05/23/2018 Diagnosis 06/09/2018 [facility] Senile purpura 05/23/2018 Diagnosis 06/09/2018 [facility] Tinea cruris 05/23/2018 Diagnosis 06/09/2018 [facility] Skin lesion 05/23/2018 Diagnosis 06/09/2018 [facility] Immunization refused 05/23/2018 Diagnosis 06/09/2018 [facility] History of smoking 05/23/2018 Diagnosis 05/23/2018 [facility] Adult health examination 04/25/2018 Diagnosis 06/09/2018 [facility] Benign prostatic hyperplasia 04/25/2018 Diagnosis 06/09/2018 [facility] Incontinence of feces 04/25/2018 Diagnosis 06/09/2018 [facility] Seasonal allergic rhinitis 04/25/2018 Diagnosis 06/09/2018 [facility] Advance directive discussed with patient 04/25/2018 Diagnosis 06/09/2018 [facility] Depression screening 04/25/2018 Diagnosis 06/09/2018 [facility] End Stage Renal Failure on Dialysis 12/13/2017 Problem 10/11/2018 [facility] Acute kidney failure, unspecified 06/17/2017 09/14/2017 [facility] FALL Active 06/07/2017 [facility] CHAI, GENERALIZED WEAKNESS Active 06/07/2017 [facility] Hypoglycemic state in diabetes 05/26/2017 Diagnosis 07/09/2017 [facility] Hypoglycemic State in Diabetes 05/26/2017 Problem 10/11/2018 [facility] Dyspnea at rest 05/10/2017 Diagnosis 07/09/2017 [facility] Benign Prostatic Hyperplasia 04/13/2017 Problem 10/11/2018 [facility] Cough 04/12/2017 Diagnosis 07/09/2017 [facility] Hypertensive disorder 04/12/2017 Diagnosis 07/09/2017 [facility] Acid reflux 04/12/2017 Diagnosis 07/09/2017 [facility] Type 2 diabetes mellitus 04/12/2017 Diagnosis 07/09/2017 [facility] Chronic kidney disease 03/24/2017 Diagnosis 07/09/2017 [facility] Hypotensive episode 03/24/2017 Diagnosis 07/09/2017 [facility] Altered mental status 03/24/2017 Diagnosis 07/09/2017 [facility] History of Cerebrovascular Accident 03/21/2017 Problem 10/11/2018 [facility] Type II Diabetes Mellitus Uncontrolled 03/19/2017 Problem 10/11/2018 [facility] Diabetic Neuropathy 03/19/2017 Problem 10/11/2018 [facility] Essential Hypertension 03/19/2017 Problem 10/11/2018 [facility] Congestive Heart Failure 03/19/2017 Problem 10/11/2018 [facility] Peripheral Vascular Disease 03/19/2017 Problem 10/11/2018 [facility] Chronic Kidney Disease 03/19/2017 Problem 10/11/2018 [facility] Stented Coronary Artery 03/19/2017 Problem 10/11/2018 [facility] Cerebrovascular Accident 03/19/2017 Problem 07/09/2017 [facility] Diabetic peripheral neuropathy 03/11/2017 Diagnosis 07/09/2017 [facility] Chronic kidney disease stage 3 03/11/2017 Diagnosis 07/09/2017 [facility] Cerebrovascular accident 03/11/2017 Diagnosis 07/09/2017 [facility] Mixed hyperlipidemia due to type 2 diabetes mellitus 03/11/2017 Diagnosis 07/09/2017 [facility] At risk for falls 03/11/2017 Diagnosis 07/09/2017 [facility] STROKE-LIKE SYMPTOMS Active 02/08/2017 [facility] SLURRED SPEECH/ GAIT ABNORMALITY Active 02/08/2017 [facility] Hematuria Active 04/01/2015 Problem 07/27/2018 [facility] Renal insufficiency Active 04/01/2015 Problem 07/27/2018 [facility] UTI Active 04/01/2015 Problem 07/27/2018 [facility] 569.89 Active 10/29/2014 [facility] Type 2 diabetes [...] without complications 09/14/2017 [facility] Hyperlipidemia, unspecified 09/14/2017 [facility] Atherosclerotic heart disease of [place] coronary artery without angina pectoris 09/14/2017 [facility] Personal history of transient ischemic attack , and cerebral infarction without residual deficits 09/14/2017 [facility] Personal history of nicotine dependence 09/14/2017 [facility] oil heaterman use of aspirin 09/14/2017 [facility] alf use of insulin 09/14/2017 [facility] CHF exacerbation Active Problem 07/27/2018 [facility] CKD Active Problem 07/27/2018 [facility] Chest pain Active Problem 07/27/2018 [facility] Febrile illness Active Problem 07/27/2018 [facility] Hyperkalemia Active Problem 07/27/2018 [facility] Hyperlipidemia Problem 10/11/2018 [facility] ACUTE KIDNEY FAILURE, UNSPECIFIED Active [facility] WEAKNESS Active [facility] Medications Medication Details Route Status Patient Instructions Ordering Provider Order Date Source Morphine 2 mg, 1 mL, Route: IVP, Drug form: INJ, Q4H, Dosing Weight 95.597, kg, PRN Pain Score 7-10, Start date: 06/08/17 10:32:00 DENTAL OFFICE COORDINATOR, Duration: 30 day, Stop date: 07/08/17 10:31:00 CDTNotes: (Same as:MORPhine Sulfate) Inactive 06/08/2017 [facility] Hydralazine 10 mg, 0.5 mL, Route: IVP, Drug form: INJ, Q4H, Dosing Weight 95.597, kg, PRN Elevated BP, Start date: 06/08/17 10:09:00 DENTAL OFFICE COORDINATOR, Duration: 30 day, Stop date: 07/08/17 10:08:00 CDTNotes: (Same as: Joseph line) Push over 5 minutes Inactive 06/08/2017 [facility] Saline Flush 0.9% 10 ml, Route: IVP, Drug Form: INJ, Dosing Weight 95.597, kg, Q12H, Start date: 06/07/17 21:00:00 DENTAL OFFICE COORDINATOR, Duration: 30 day, Stop date: 07/07/17 9:00:00 CDTNotes: (Same as: BD Posiflush) No Longer Active 06/08/2017 [facility] atorvastatin 80 mg, 2 tab, Route: PO, Drug form: TAB, Bedtime, Dosing Weight 95.597, kg, Start date: 06/07/17 21:00:00 DENTAL OFFICE COORDINATOR, Duration: 30 day, Stop date: 07/06/17 21:00:00 CDTNotes: (Same as: Lipitor) No Longer Active 06/08/2017 [facility] Acyclovir 750 mg, Route: IV, Drug form: PDR/INJ, [id number], Dosing Weight 95.597, kg, Start date: 06/07/17 21:00:00 DENTAL OFFICE COORDINATOR, Duration: 7 day, Stop date: 06/13/17 21:00:00 CSTNotes: (Same as: Zovirax) For adult patients only: Round to nearest 50 mg per Medical Staff approval MEDICATION WASTE Product Size: 500 mg Product Wasted: 250 mg No Longer Active 06/08/2017 [facility] Morphine 4 mg, 1 mL, Route: IVP, Drug form: SOLN, Q4H, Dosing Weight 95.597, kg, PRN Pain Score 7-10, Start date: 06/07/17 20:16:00 DENTAL OFFICE COORDINATOR, Duration: 30 day, Stop date: 07/07/17 20:15:00 CDTNotes: (Same as:MORPhine Sulfate) No Longer Active 06/08/2017 [facility] heparin 5,000 unit, 1 mL, Route: SUB-Q, Drug form: INJ, Q8H-06, Dosing Weight 95.597, kg, (For patients weighing Notes: porcine heparin No Longer Active 06/07/2017 [facility] valacyclovir 1,000 mg, 2 tab, Route: PO, Drug form: TAB, [id number], Dosing Weight 95.597, kg, Priority: NOW, Start date: 06/07/17 10:47:00 DENTAL OFFICE COORDINATOR, Duration: 7 day, Stop date: 06/13/17 10:47:00 CSTNotes: (Same As: Valtrex) Inactive 06/07/2017 [facility] Aspirin 300 MG Rectal Suppository 300 mg, 1 supp, Route: NH, Drug form: SUPP, ONCE, Dosing Weight 95.597, kg, Priority: NOW, Start date: 06/07/17 10:40:00 DENTAL OFFICE COORDINATOR, Stop date: 06/07/17 10:40:00 CSTNotes: Refrigerate. Inactive 06/07/2017 [facility] Aspirin 81 MG Enteric Coated Tablet 81 mg, 1 tab, Route: PO, Drug form: ECTAB, Q24H, Dosing Weight 95.597, kg, Start date: 06/07/17 10:00:00 DENTAL OFFICE COORDINATOR, Duration: 30 day, Stop date: 07/06/17 10:00:00 CDTNotes: Do not crush or chew. (Same As: Ecotrin) No Longer Active 06/07/2017 [facility] Glucagon 1 mg, Route: IM, Drug form: PDR/INJ, PRN, Dosing Weight 95.597, kg, PRN Blood Glucose Results, Start date: 06/07/17 9:48:00 DENTAL OFFICE COORDINATOR, Duration: 30 day, Stop date: 07/07/17 10:47:00 CDT No Longer Active 06/07/2017 [facility] Dextrose 50% Syringe 25 gm, 50 mL, Route: IVP, Drug Form: INJ, Dosing Weight 95.597, kg, PRN, PRN Blood Glucose Results, Start date: 06/07/17 9:48:00 DENTAL OFFICE COORDINATOR, Duration: 30 day, Stop date: 07/07/17 10:47:00 CDT No Longer Active 06/07/2017 [facility] Insulin Lispro 4 unit, 0.04 mL, Route: SUB-Q, Drug form: SOLN, Sliding Scale, Dosing Weight 95.597, kg, PRN Blood Glucose Results, Start date: 06/07/17 9:48:00 DENTAL OFFICE COORDINATOR, Duration: 30 day, Stop date: 07/07/17 10:47:00 CDTNo naldo: (Same as: Humalog ) Roll in palms of hands gently; Do not shake `vigorously. "Single Patient Use Only " WASTE: F/P - Black; E - Urgent Career Trash Bin Stable for 28 days at room temperature. Expires in days from Date No Longer Active 06/07/2017 [facility] Saline Flush 0.9% 10 ml, Route: IVP, Drug Form: INJ, Dosing Weight 95.597, kg, PRN, PRN Line Flush, Start date: 06/07/17 9:47:00 DENTAL OFFICE COORDINATOR, Duration: 30 day, Stop date: 07/07/17 10:46:00 CDTNotes: (Same as: BD Posiflush) No Longer Active 06/07/2017 [facility] Saline Flush 0.9% 10 ml, Route: IVP, Drug Form: INJ, Dosing Weight 87.5, kg, PRN, PRN Line Flush, Start date: 06/07/17 7:07:00 DENTAL OFFICE COORDINATOR, Duration: 30 day, Stop date: 07/07/17 8:06:00 CDTNotes: (Same as: BD Posiflush) No Longer Active 06/07/2017 [facility] Sodium Chloride 0.9% IV 1,000 mL 1,000 mL, Rate: 125 ml/hr, Infuse over: 8 hr, Route: IV, Dosing Weight 87.5 kg, Total Volume: 1,000, Start date: 06/07/17 7:07:00 DENTAL OFFICE COORDINATOR, Duration: 30 day, Stop date: 07/07/17 7:06:00 CDT, 2.08, m2 No Longer Active 06/07/2017 [facility] Ondansetron 4 mg, 2 mL, Route: IVP, Drug form: INJ, Q6H, Dosing Weight 87.5, kg, PRN Nausea & Vomiting, Start date: 06/07/17 7:07:00 DENTAL OFFICE COORDINATOR, Duration: 30 day, Stop date: 07/07/17 7:06:00 CDTNotes: (Same as: Zofran) MEDICATION WASTE Product Size: 4 mg Product Wasted: ___ mg No Longer Active 06/07/2017 [facility] Acetaminophen 650 mg, 2 tab, Route: PO, Drug form: TAB, Q4H, Dosing Weight 87.5, kg, PRN Pain 1-3/Temp > 100.4 F, Start date: 06/07/17 7:07:00 DENTAL OFFICE COORDINATOR, Duration: 30 day, Stop date: 07/07/17 7:06:00 CDTNotes: Do not ex ceed 4 gm/day. (Same as: Tylenol) No Longer Active 06/07/2017 [facility] Sodium Chloride 0.9% IV 1,000 mL 1,000 mL, Rate: 75 ml/hr, Infuse over: 13.3 hr, Route: IV, Dosing Weight 87.5 kg, Total Volume: 1,000, Start date: 06/07/17 6:02:00 DENTAL OFFICE COORDINATOR, Duration: 30 day, Stop date: 07/07/17 6:01:00 CDT, 2.08, m2 Inactive 06/07/2017 [facility] Insulin Glargine (Lantus 3ML Pen) 100 Units/1 Ml Inj, 20 Bedtime Active 05/28/2017 [facility] Insulin Glargine (Lantus) 100 Units/Ml Ml, 34 Units Sub-Q Bedtime Active 05/28/2017 [facility] Amoxicillin 875 MG / Clavulanate 125 MG Oral Tablet amoxicillin 875 mg-potassium clavulanate 125 mg tablet Active 05/24/2017 [facility] Azithromycin 250 MG Oral Tablet azithromycin 250 mg tablet Active 05/10/2017 [facility] benzonatate 200 MG Oral Capsule benzonatate 200 mg capsule Take 1 capsule 3 times a day by oral route for 10 days. Active 05/10/2017 [facility] Infinity Meter Kit Infinity Meter Kit Active 05/10/2017 [facility] lancing device lancing device Active 05/10/2017 [facility] 3 ML Insulin Glargine 100 UNT/ML Pen Injector [Lantus] Lantus Solostar U-100 Insulin 100 unit/mL (3 mL) subcutaneous pen 20 units at bedtime Active 05/10/2017 [facility] True Metrix Glucose Test Strip True Metrix Glucose Test Strip use 4 times a day Active 05/10/2017 [facility] Clindamycin 150 MG Oral Capsule clindamycin HCl 150 mg capsule 2 capsules every 6 hrs Active 04/12/2017 [facility] gabapentin 300 MG Oral Capsule gabapentin 300 mg capsule Take 1 capsule twice a day by oral route. Active 04/12/2017 [facility] Lisinopril 20 MG Oral Tablet lisinopril 20 mg tablet Take 1 tablet twice a day by oral route. Active 04/12/2017 [facility] Metolazone 2.5 MG Oral Tablet metolazone 2.5 mg tablet Take 1 tablet twice a day by oral route. Active 04/12/2017 [facility] Regular Insulin, Human 100 UNT/ML Injectable Solution [Novolin R] Novolin R Regular U-100 Insulin 100 unit/mL injection solution Active 04/12/2017 [facility] Pentoxifylline 400 MG Extended Release Oral Tablet pentoxifylline ER 400 mg tablet,extended release Take 1 tablet 3 times a day by oral route. Active 04/12/2017 [facility] Microencapsulated Potassium Chloride 10 MEQ Extended Release Oral Tablet potassium chloride ER 10 mEq tablet,extended release(part/cryst) Take 1 tablet twice a day by oral route. Active 04/12/2017 [facility] Acetaminophen 300 MG / Codeine Phosphate 30 MG Oral Tablet acetaminophen 300 mg-codeine 30 mg tablet Active 03/11/2017 [facility] Cephalexin 500 MG Oral Capsule cephalexin 500 mg capsule Active 03/11/2017 [facility] Ciprofloxacin 500 MG Oral Tablet ciprofloxacin 500 mg tablet Take 1 tablet twice a day by oral route. Active 03/11/2017 [facility] Doxepin Hydrochloride 50 MG/ML Topical Cream doxepin 5 % topical cream Active 03/11/2017 [facility] gabapentin 100 MG Oral Capsule gabapentin 100 mg capsule Active 03/11/2017 [facility] gatifloxacin 5 MG/ML Ophthalmic Solution gatifloxacin 0.5 % eye drops Active 03/11/2017 [facility] Ketorolac Tromethamine 5 MG/ML Ophthalmic Solution ketorolac 0.5 % eye drops Active 03/11/2017 [facility] Levofloxacin 250 MG Oral Tablet levofloxacin 250 mg tablet Active 03/11/2017 [facility] Mupirocin 0.02 MG/MG Topical Ointment mupirocin 2 % topical ointment Active 03/11/2017 [facility] prednisolone acetate 10 MG/ML Ophthalmic Suspension prednisolone acetate 1 % eye drops,suspension Active 03/11/2017 [facility] Sulfamethoxazole 800 MG / Trimethoprim 160 MG Oral Tablet sulfamethoxazole 800 mg-trimethoprim 160 mg tablet Active 03/11/2017 [facility] tramadol hydrochloride 50 MG Oral Tablet tramadol 50 mg tablet Active 03/11/2017 [facility] TRUEplus Lancets 28 gauge TRUEplus Lancets 28 gauge Active 03/11/2017 [facility] Acetaminophen With Codeine (Tylenol With Codeine #3 Tablet) 1 Each Tablet, 300 Mg Oral Every 6 Hours as needed for Pain Active 03/04/2017 [facility] Carvedilol 6.25 Mg Tablet, 3.125 Mg Oral Bedtime Active 03/04/2017 [facility] Ferrous Sulfate 325 Mg Tablet, 325 Mg Oral Daily Active 03/04/2017 [facility] Metolazone 5 Mg Tablet, 2.5 Mg Oral Twice A Day Active 03/04/2017 [facility] Zaroxolyn , 2.5 Mg Oral Twice A Day as needed for Shortness Of Breath Active 03/04/2017 [facility] Lantus 100 units/mL 25 unit, SUB-Q, Bedtime, # 10 mL, 0 Refill(s), Pharmacy: [facility] [id number] Active 02/11/2017 [facility] pneumococcal 13-valent vaccine 0.5 mL, Route: IM, Drug Form: INJ, Daily, Start date: 02/09/17 9:00:00 CDT, Duration: 1 doses or times, Stop date: 02/09/17 9:00:00 CDTNotes: Shake well prior to use (Same as: Prevnar 13) Inactive 02/09/2017 [facility] metolazone 2.5 mg oral tablet 2.5 mg, 1 tab, Route: PO, Drug form: TAB, BID, Dosing Weight 87.5, kg, Start date: 02/09/17 9:00:00 CDT, Duration: 30 day, Stop date: 03/10/17 17:00:00 CSTNotes: (Same as: Zaroxolyn) No Longer Active 02/09/2017 [facility] lisinopril 20 mg, Route: PO, Drug form: TAB, BID, Dosing Weight 87.5, kg, Start date: 02/09/17 9:00:00 CDT, Duration: 30 day, Stop date: 03/10/17 17:00:00 DENTAL OFFICE COORDINATOR Inactive 02/09/2017 [facility] gabapentin 300 mg oral capsule 300 mg, 1 cap, Route: PO, Drug form: CAP, Q12H, Dosing Weight 87.5, kg, Start date: 02/09/17 9:00:00 CDT, Duration: 30 day, Stop date: 03/10/17 21:00:00 CSTNotes: (Same as: Neurontin) No Longer Active 02/09/2017 [facility] influenza virus vaccine, inactivated 0.5 mL, Route: IM, Drug Form: SUSP, Daily, Start date: 02/09/17 9:00:00 CDT, Duration: 1 doses or times, Stop date: 02/09/17 9:00:00 CDTNotes: (Same as: Fluzone Quadrivalent, Fluarix Quadrivalent) For 3 years of age and older (0.5 mL IM) Shake well before use Inactive 02/09/2017 [facility] Humalog 10 unit, 0.1 mL, Route: [...] days from Date No Longer Active 02/09/2017 [facility] NovoLOG 10 unit, Route: SUB-Q, Drug form: SOLN, TID-Before Meals, Dosing Weight 87.5, kg, Start date: 02/09/17 7:30:00 CDT, Duration: 30 day, Stop date: 03/10/17 16:30:00 DENTAL OFFICE COORDINATOR Inactive 02/09/2017 [facility] ciprofloxacin 500 mg, 1 tab, Route: PO, Drug form: TAB, [id number], Dosing Weight 87.5, kg, Start date: 02/09/17 1:00:00 CDT, Duration: 30 day, Stop date: 03/10/17 13:00:00 DENTAL OFFICE COORDINATOR, ABX Indication: Skin/Soft Tissue Infectio nNotes: May interfere w/enteral feedings - Take 1 hr before or 2 hrs after antacids, dairy pdt & minerals. On empty stomach. Inactive 02/09/2017 [facility] Lantus 100 units/mL 25 unit, 0.25 mL, Route: SUB-Q, Drug form: SOLN, Bedtime, Dosing Weight 87.5, kg, Start date: 02/09/17 0:03:00 CDT, Duration: 30 day, Stop date: 03/10/17 21:00:00 CSTNotes: (Same as: Lantus) Do not hold insulin without contacting prescriber WASTE: F/P - Black; E - Municipal Trash Bin "single patient use only" No Longer Active 02/09/2017 [facility] hydrALAZINE 50 mg oral tablet 50 mg, 1 tab, Route: PO, Drug form: TAB, Q8H, Dosing Weight 87.5, kg, Start date: 02/09/17 0:00:00 CDT, Duration: 30 day, Stop date: 03/10/17 16:00:00 DENTAL OFFICE COORDINATOR Inactive 02/09/2017 [facility] lisinopril 20 mg oral tablet 20 mg=1 tab, PO, BID, 0 Refill(s) No Longer Active 02/09/2017 [facility] metolazone 2.5 mg oral tablet 2.5 mg=1 tab, PO, BID, 0 Refill(s) Active 02/09/2017 [facility] furosemide 40 mg oral tablet 80 mg=2 tab, PO, QAM, 0 Refill(s) No Longer Active 02/09/2017 [facility] gabapentin 300 mg oral capsule 300 mg=1 cap, PO, BID, 0 Refill(s) No Longer Active 02/09/2017 [facility] ciprofloxacin 500 mg oral tablet 500 mg=1 tab, PO, Q12H, 0 Refill(s) No Longer Active 02/09/2017 [facility] hydrALAZINE 50 mg oral tablet 50 mg=1 tab, PO, Q8H, 0 Refill(s) No Longer Active 02/09/2017 [facility] NovoLOG 100 units/mL 10 unit, SUB-Q, TID-Before Meals, # 10 mL, 0 Refill(s) Active 02/09/2017 [facility] potassium chloride 10 mEq oral tablet, extended release 10 mEq=1 tab, PO, BID, 0 Refill(s) No Longer Active 02/09/2017 [facility] Lantus 100 units/mL 34 units, SUB-Q, Bedtime, 0 Refill(s) No Longer Active 02/09/2017 [facility] atorvastatin 80 mg oral tablet 80 mg=1 tab, PO, Daily, 0 Refill(s) Active 02/09/2017 [facility] clindamycin 150 mg, PO, Q6H, 2 capsules, 0 Refill(s) Active 02/09/2017 [facility] aspirin 81 mg tablet, chewable 81 mg=1 tab, CHEW, Daily, 0 Refill(s) Active 02/09/2017 [facility] clindamycin 300 mg, 1 cap, Route: PO, Drug form: CAP, [id number], Dosing Weight 104.545, kg, Start date: 02/08/17 21:00:00 CDT, Duration: 5 day, Stop date: 02/13/17 15:00:00 DENTAL OFFICE COORDINATOR, ABX Indication: Skin/Soft Tissue Inf ectionNotes: (Same As: Cleocin) No Longer Active 02/09/2017 [facility] Lipitor 80 mg, 2 tab, Route: PO, Drug form: TAB, Bedtime, Dosing Weight 104.545, kg, Start date: 02/08/17 21:00:00 CDT, Duration: 30 day, Stop date: 03/09/17 21:00:00 CSTNotes: (Same as: Lipitor) No Longer Active 02/09/2017 [facility] Saline Flush 0.9% 10 ml, Route: IVP, Drug Form: INJ, Dosing Weight 104.545, kg, Q12H, Start date: 02/08/17 21:00:00 CDT, Duration: 30 day, Stop date: 03/10/17 9:00:00 CSTNotes: (Same as: BD Posiflush) No Longer Active 02/09/2017 [facility] aspirin 81 mg tablet, enteric coated 81 mg, 1 tab, Route: PO, Drug form: ECTAB, Daily, Dosing Weight 104.545, kg, Start date: 02/08/17 21:00:00 CDT, Duration: 30 day, Stop date: 03/10/17 9:00:00 CSTNotes: Do not crush or chew. (Same As: Ecotrin) No Longer Active 02/09/2017 [facility] hydrALAZINE 10 mg, 0.5 mL, Route: IVP, Drug form: INJ, Q6H, Dosing Weight 104.545, kg, PRN Hypertension, Start date: 02/08/17 20:35:00 CDT, Duration: 30 day, Stop date: 03/10/17 20:34:00 DENTAL OFFICE COORDINATOR, FOR sbp > 180 MMNotes: (Same as: Apresoline) Push over 5 minutes No Longer Active 02/09/2017 [facility] insulin lispro 5 unit, 0.05 mL, [...] days from Date No Longer Active 02/09/2017 [facility] glucagon 1 mg, Route: IM, Drug form: PDR/INJ, PRN, Dosing Weight 104.545, kg, PRN Blood Glucose Results, Start date: 02/08/17 20:35:00 CDT, Duration: 30 day, Stop date: 03/10/17 19:34:00 DENTAL OFFICE COORDINATOR No Longer Active 02/09/2017 [facility] Dextrose 50% Syringe 25 gm, 50 mL, Route: IVP, Drug Form: INJ, Dosing Weight 104.545, kg, PRN, PRN Blood Glucose Results, Start date: 02/08/17 20:35:00 CDT, Duration: 30 day, Stop date: 03/10/17 19:34:00 DENTAL OFFICE COORDINATOR No Longer Active 02/09/2017 [facility] Saline Flush 0.9% 10 ml, Route: IVP, Drug Form: INJ, Dosing Weight 104.545, kg, PRN, PRN Line Flush, Start date: 02/08/17 20:26:00 CDT, Duration: 30 day, Stop date: 03/10/17 19:25:00 DENTAL OFFICE COORDINATOR Inactive 02/09/2017 [facility] ondansetron 4 mg, 2 mL, Route: IVP, Drug form: INJ, Q8H, Dosing Weight 104.545, kg, PRN Nausea & Vomiting, Start date: 02/08/17 20:26:00 CDT, Duration: 30 day, Stop date: 03/10/17 20:25:00 CSTNotes: (Same as: Taylor) MEDICATION WASTE Product Size: 4 mg Product Wasted: ___ mg No Longer Active 02/09/2017 [facility] acetaminophen 650 mg, 2 tab, Route: PO, Drug form: TAB, Q4H, Dosing Weight 104.545, kg, PRN Pain 1-3/Temp > 99.5 F, Start date: 02/08/17 20:26:00 CDT, Duration: 30 day, Stop date: 03/10/17 20:25:00 CSTNotes: Do not exceed 4 gm/day. (Same as: Tylenol) No Longer Active 02/09/2017 [facility] bisacodyl 10 mg, 1 supp, Route: NH, Drug form: SUPP, Daily, Dosing Weight 104.545, kg, PRN Constipation, Start date: 02/08/17 20:26:00 CDT, Duration: 30 day, Stop date: 03/10/17 20:25:00 CSTNotes: (Same As: Dulcolax, Bisco-Lax) No Longer Active 02/09/2017 [facility] Saline Flush 0.9% 10 mL, Route: IVP, Drug Form: INJ, Dosing Weight 104.545, kg, PRN, PRN Line Flush, Start date: 02/08/17 16:21:00 CDT, Duration: 30 day, Stop date: 03/10/17 15:20:00 CSTNotes: (Same as: BD Posiflush) No Longer Active 02/08/2017 [facility] Pentoxifylline 400 Mg Tablet.er, 400 Mg Oral Three Times A Day Active 09/20/2016 [facility] Cephalexin 500 Mg Capsule, 500 Mg Oral Three Times A Day Active 09/05/2016 [facility] Ciprofloxacin Hcl (Cipro) 500 Mg Tablet, 500 Mg Oral Every 12 Hours Active 09/05/2016 [facility] Clindamycin Hcl 150 Mg Capsule, 300 Mg Oral Every 8 Hours Active 09/05/2016 [facility] Sulfamethoxazole/Trimethoprim (Bactrim Ds Tablet) 1 Each Tablet, 1 Tab Oral Twice A Day Active 09/05/2016 [facility] Lisinopril (Zestril*) 20 Mg Tablet, 20 Mg Oral Twice A Day Active 02/04/2016 [facility] Acetaminophen With Codeine (Tylenol With Codeine #3 Tablet) 1 Each Tablet, 300 Mg Oral Every 4 Hours Active 09/05/2015 [facility] Famotidine 20 Mg Tab, 20 Mg Oral Daily Active 09/05/2015 [facility] Levofloxacin (Levaquin) 500 Mg Tablet, 500 Mg Oral Daily Active 09/05/2015 [facility] Meclizine Hcl 12.5 Mg Tablet, 25 Mg Oral Twice A Day Active 09/05/2015 [facility] Cholecalciferol (Vitamin D3) (Vitamin D) 5,000 Unit Tablet, 5000 Units Oral Daily Active 04/01/2015 [facility] Aspirin (Aspir 81) 81 Mg Tablet.dr Daily Active [facility] Atorvastatin Calcium 80 Mg Tablet Daily Active [facility] Carvedilol 3.125 Mg Tablet Bedtime Active [facility] Clopidogrel Bisulfate (Clopidogrel) 75 Mg Tablet Daily Active [facility] Famotidine 20 Mg Tab Twice A Day Active [facility] Furosemide 20 Mg Tablet Twice A Day Active [facility] Hydralazine Hcl 10 Mg Tablet Every 8 Hours Active [facility] Insulin Glargine (Lantus 3ML Pen) 100 Units/1 Ml Inj Bedtime Active [facility] Insulin Regular, Human (Novolin R) 100 Unit/1 Ml Vial Three Times A Day Active [facility] Isosorbide Dinitrate 20 Mg Tablet Daily Active [facility] Tamsulosin Hcl (Flomax*) 0.4 Mg Cap Daily Active [facility] Albuterol 0.83 MG/ML Inhalation Solution albuterol sulfate 2.5 mg/3 mL (0.083 %) solution for nebulization Inhale 3 mL 3 times a day by nebulization route as needed. Active [facility] atorvastatin 80 MG Oral Tablet atorvastatin 80 mg tablet TAKE 1 TABLET BY MOUTH EVERYDAY AT BEDTIME Active [facility] Azithromycin 250 MG Oral Tablet azithromycin 250 mg tablet TAKE 2 TABLETS (500 MG) BY ORAL ROUTE ONCE DAILY FOR 1 DAY THEN 1 TABLET (250 MG) BY ORAL ROUTE ONCE DAILY FOR 4 DAYS Active [facility] carvedilol 3.125 MG Oral Tablet carvedilol 3.125 mg tablet TAKE 1 TABLET BY MOUTH EVERYDAY AT BEDTIME Active [facility] clonidine clonidine as needed Active [facility] clopidogrel 75 MG Oral Tablet clopidogrel 75 mg tablet TAKE 1 TABLET BY MOUTH EVERY DAY Active [facility] Fluconazole 150 MG Oral Tablet fluconazole 150 mg tablet Take 1 tablet every day by oral route for 7 days. Active [facility] Furosemide 40 MG Oral Tablet furosemide 40 mg tablet Take 1 tablet twice a day by oral route as needed. Active [facility] Hydralazine Hydrochloride 50 MG Oral Tablet hydralazine 50 mg tablet TAKE 1 TABLET BY MOUTH EVERY 8 HOURS Active [facility] Isosorbide Dinitrate 30 MG Oral Tablet isosorbide dinitrate 30 mg tablet TAKE 1 TABLET BY MOUTH EVERY DAY Active [facility] 3 ML Insulin Glargine 100 UNT/ML Pen Injector [Lantus] Lantus Solostar U-100 Insulin 100 unit/mL (3 mL) subcutaneous pen Inject 24 units every day by subcutaneous route in the morning. Active [facility] 3 ML insulin detemir 100 UNT/ML Pen Injector [Levemir] Levemir FlexTouch U-100 Insulin 100 unit/mL (3 mL) subcutaneous pen Active [facility] Loratadine 10 MG Oral Tablet loratadine 10 mg tablet TAKE 1 TABLET BY MOUTH EVERY DAY NEEDED Active [facility] Lorazepam 2 MG Oral Tablet lorazepam 2 mg tablet Take 1 tablet every day by oral route as needed. Active [facility] medroxyprogesterone acetate 5 MG Oral Tablet medroxyprogesterone 5 mg tablet TAKE 1 TABLET BY MOUTH EVERY DAY Active [facility] Mupirocin 0.02 MG/MG Topical Ointment mupirocin 2 % topical ointment APPLY A SMALL AMOUNT TO THE AFFECTED AREA BY TOPICAL ROUTE 3 TIMES PER DAY Active [facility] Insulin, Aspart, Human 100 UNT/ML Injectable Solution [NovoLog] Novolog U-100 Insulin aspart 100 unit/mL subcutaneous solution Inject 7 units 3 times a day by subcutaneous route as needed for 30 days. Active [facility] Nystatin 163968 UNT/ML Topical Cream nystatin 100,000 unit/gram topical cream Apply 1 application twice a day by topical route for 15 days. Active [facility] Nystatin 100 UNT/MG Topical Powder nystatin 100,000 unit/gram topical powder APPLY TO THE AFFECTED AREA(S) BY TOPICAL ROUTE 2 TIMES PER DAY Active [facility] OneTouch Delica Lancets 33 gauge OneTouch Delica Lancets 33 gauge Active [facility] OneTouch Verio Mid Control solution OneTouch Verio Mid Control solution Active [facility] OneTouch Verio strips OneTouch Verio strips Active [facility] sevelamer carbonate 800 MG Oral Tablet sevelamer carbonate 800 mg tablet Take 1 tablet 3 times a day by oral route for 90 days. Active [facility] Suprep Bowel Prep Kit 17.5 gram-3.13 gram-1.6 gram oral solution Suprep Bowel Prep Kit 17.5 gram-3.13 gram-1.6 gram oral solution Active [facility] Tamsulosin hydrochloride 0.4 MG Oral Capsule tamsulosin 0.4 mg capsule TAKE 1 CAPSULE(S) EVERY DAY BY ORAL ROUTE. Active [facility] Ultra Thin Lancets 31 gauge Ultra Thin Lancets 31 gauge Take 1 each every day by miscell. route for 90 days. Active [facility] Ergocalciferol 15465 UNT Oral Capsule Vitamin D2 50,000 unit capsule Take 1 capsule every week by oral route. Active [facility] Famotidine 20 MG Oral Tablet famotidine 20 mg tablet Active [facility] Acetaminophen 325 MG / Hydrocodone Bitartrate 5 MG Oral Tablet hydrocodone 5 mg-acetaminophen 325 mg tablet Active [facility] Lorazepam 0.5 MG Oral Tablet lorazepam 0.5 mg tablet Take 2 tablets 3 times a day by oral route. Active [facility] Nystatin 100 UNT/MG Topical Powder [Nystop] Nystop 100,000 unit/gram topical powder APPLY TO THE AFFECTED AREA(S) BY TOPICAL ROUTE 2 TIMES PER DAY Active [facility] rivaroxaban 15 MG Oral Tablet [Xarelto] Xarelto 15 mg tablet Take 1 tablet every day by oral route for 90 days. Active [facility] Acyclovir 800 MG Oral Tablet acyclovir 800 mg tablet Active [facility] Aspirin 81 MG Delayed Release Oral Tablet aspirin 81 mg tablet,delayed release Take 1 tablet every day by oral route. Active [facility] Ciprofloxacin 250 MG Oral Tablet ciprofloxacin 250 mg tablet Active [facility] True Metrix Glucose Test Strip True Metrix Glucose Test Strip Take 1 strip every day by miscell. route. Active [facility] Hydroxyzine Hydrochloride 25 MG Oral Tablet hydroxyzine HCl 25 mg tablet Take 1 tablet twice a day by oral route. Do not use benadryl, loratadine or lorazepam while using this med Active [facility] Allergies, Adverse Reactions, Alerts No Known Medication Allergies Immunizations Immunization Date Given Site Status Last Updated Comments Source pneumococcal polysaccharide PPV23 08/08/2018 [facility] pneumococcal 13-valent vaccine 02/09/2017 Left deltoid completed [facility] influenza virus vaccine, inactivated 02/09/2017 Right deltoid completed [facility] pneumococcal 13-valent vaccine 02/09/2017 Left deltoid completed [facility] pneumococcal conjugate PCV 13 02/09/2017 [facility] influenza, unspecified formulation 02/09/2017 [facility] Tdap 04/11/2015 [facility] Results Order Name Results Value Reference Range Date Interpretation Comments Source Alkaline phosphatase isoenzyme [Units/volume] in Serum or Plasma alkaline phosphatase 354 40 - 115 09/19/2018 [facility] Alkaline phosphatase isoenzyme [Units/volume] in Serum or Plasma intestinal isoenzymes 19 1 - 24 09/19/2018 [facility] Alkaline phosphatase isoenzyme [Units/volume] in Serum or Plasma bone isoenzymes 22 28 - 66 09/19/2018 [facility] Alkaline phosphatase isoenzyme [Units/volume] in Serum or Plasma liver isoenzymes 59 25 - 69 09/19/2018 [facility] Alkaline phosphatase isoenzyme [Units/volume] in Serum or Plasma placental isoenzymes 0 09/19/2018 [facility] Comprehensive metabolic 1999 panel - Serum or Plasma ALT 17 0 - 55 09/13/2018 [facility] Comprehensive metabolic 1999 panel - Serum or Plasma AST 22 5 - 34 09/13/2018 [facility] Comprehensive metabolic 1999 panel - [...] Plasma albumin 3.2 3.4 - 5.1 09/13/2018 [facility] Comprehensive metabolic 1999 panel - Serum or Plasma creatinine 4.39 0.72 - 1.25 09/13/2018 critical [facility] Comprehensive metabolic 1999 panel - Serum or Plasma eGFR non- 13 09/13/2018 abnormal [facility] Comprehensive metabolic 1999 panel - Serum or Plasma total bilirubin 1.7 0.2 - 1.2 09/13/2018 high [facility] Comprehensive metabolic 1999 panel - Serum or Plasma eGFR - 16 09/13/2018 abnormal [facility] Comprehensive metabolic 1999 panel - Serum or Plasma sodium 137 135 - 145 09/13/2018 [facility] Comprehensive metabolic 1999 panel - Serum or Plasma potassium 4.4 3.5 - 5.1 09/13/2018 [facility] Comprehensive metabolic 1999 panel - Serum or Plasma chloride 96 98 - 110 09/13/[address] [facility] metabolic 1999 panel - Serum or Plasma total protein 7.2 6.1 - 8.2 09/13/2018 [facility] Comprehensive metabolic 1999 panel - Serum or Plasma calcium 8.8 9.0 - 10.2 09/13/2018 [facility] metabolic 1999 panel - Serum or Plasma CO2 32.2 20.0 - 32.0 09/13/2018 [facility] Comprehensive metabolic 1999 panel - Serum or Plasma anion gap 9 09/13/2018 [facility] Creatine kinase [Enzymatic activity/volume] in Serum or Plasma creatine kinase (CK) 60 30 - 200 09/13/2018 [facility] Hemoglobin A1c/Hemoglobin.total in Blood Hemoglobin A1c/Hemoglobin.total in Blood 8.3 1.0 - 5.7 09/13/2018 [facility] Hemoglobin A1c/Hemoglobin.total in Blood average blood glucose 192 09/13/2018 [facility] Lipid 1995 panel - Serum or Plasma HDL 40 40 - 0 09/13/2018 [facility] Lipid 1995 panel - Serum or Plasma triglyceride 82 0 - 150 09/13/2018 [facility] Lipid 1995 panel - Serum or Plasma VLDL (calculated) 16 09/13/2018 [facility] Lipid 1996 panel - Serum or Plasma cholesterol/HDL ratio 4.1 09/13/2018 [facility] Lipid 1995 panel - Serum or Plasma non-HDL cholesterol (calculated) 124 0 - 160 09/13/2018 [facility] Lipid 1995 panel - Serum or Plasma cholesterol 164 0 - 200 09/13/2018 [facility] Lipid 1995 panel - Serum or Plasma Cholesterol in LDL [Mass/volume] in Serum or Plasma 108 0 - 130 09/13/2018 [facility] Thyrotropin [Units/volume] in Serum or Plasma TSH 2.514 0.350 - 4.940 09/13/2018 [facility] Hemoglobin A1c/Hemoglobin.total in Blood A1C w/EAG 12.6 1.0 - 5.7 03/29/2018 [facility] Hemoglobin A1c/Hemoglobin.total in Blood average blood glucose 315 03/29/2018 [facility] Comprehensive metabolic 1999 panel - Serum or Plasma ALT 16 0 - 55 03/29/2018 [facility] Comprehensive metabolic 1999 panel - Serum or Plasma AST 21 5 - 34 03/29/2018 [facility] Comprehensive metabolic 1999 panel - [...] Plasma albumin 3.1 3.5 - 5.0 03/29/2018 [facility] Comprehensive metabolic 1999 panel - Serum or Plasma creatinine 3.72 0.72 - 1.25 03/29/2018 [facility] Comprehensive metabolic 1999 panel - Serum or Plasma eGFR non- 16 03/29/2018 abnormal [facility] Comprehensive metabolic 1999 panel - Serum or Plasma total bilirubin 1.2 0.2 - 1.2 03/29/2018 [facility] Comprehensive metabolic 1999 panel - Serum or Plasma eGFR - 20 03/29/2018 abnormal [facility] Comprehensive metabolic 1999 panel - Serum or Plasma sodium 135 136 - 145 03/29/2018 [facility] Comprehensive metabolic 1999 panel - Serum or Plasma potassium 4.8 3.5 - 5.1 03/29/2018 [facility] Comprehensive metabolic 1999 panel - Serum or Plasma chloride 95 98 - 107 03/29/2018 [facility] Comprehensive metabolic 1999 panel - Serum or Plasma total protein 6.8 6.4 - 8.3 03/29/2018 [facility] Comprehensive metabolic 1999 panel - Serum or Plasma calcium 8.5 8.8 - 10.0 03/29/2018 [facility] Comprehensive metabolic 1999 panel - Serum or Plasma CO2 32.9 23.0 - 31.0 03/29/2018 [facility] Comprehensive metabolic 1999 panel - Serum or Plasma anion gap 7 03/29/2018 [facility] PSA, total 0.49 0.00 - 4.00 03/29/2018 [facility] CHEM PANEL Magnesium Lvl 2.4 [...] should be multiplied by the estimated BMI. [facility] CHEM PANEL AST 15 0 - 37 06/08/2017 [facility] CHEM PANEL Alk Phos 161 39 - 136 06/08/2017 [facility]M PANEL ALT 17 0 - 65 06/08/2017 [facility] CHEM PANEL Albumin Lvl 2.4 3.5 - 5.0 06/08/2017 [facility] CHEM PANEL Bili Total 0.6 0.2 - 1.3 06/08/2017 [facility] CHEM PANEL Calcium Lvl 7.9 8.5 - 10.5 06/08/2017 [facility] CHEM PANEL CO2 23 24 - 32 06/08/2017 [facility] CHEM PANEL Total Protein 5.9 6.4 - 8.4 06/08/2017 [facility] CHEM PANEL Creatinine Lvl 3.00 0.50 - 1.40 06/08/2017 [facility] CHEM PANEL BUN 59 7 - [...] PANEL AGAP 14.6 10.0 - 20.0 06/08/2017 [facility] CHEM PANEL A/G Ratio 0.7 0.7 - 1.6 06/08/2017 [facility] HEMATOLOGY Lymphocytes 19.4 20.0 - 40.0 06/08/2017 [facility] HEMATOLOGY Monocytes 10.7 2.0 - 12.0 06/08/2017 [facility] HEMATOLOGY Segs 65.2 45.0 - 75.0 06/08/2017 [facility] HEMATOLOGY Eosinophils # 0.2 0.0 - 0.5 06/08/2017 [facility] HEMATOLOGY Monocytes # 0.6 0.0 - 0.8 06/08/2017 [facility] Lymphocytes # 1.1 1.0 - 5.5 06/08/2017 [facility] HEMATOLOGY Basophils 0.8 0.0 - 1.0 06/08/2017 [facility] Eosinophils 3.9 0.0 - 4.0 06/08/2017 [facility] Segs-Bands # 3.6 1.5 - 8.1 06/08/2017 [facility] MCV 95.2 80.0 - 94.0 06/08/2017 [facility] Hct 26.6 42.0 - 54.0 06/08/2017 [facility] MPV 9.2 7.4 - 10.4 06/08/2017 [facility] Hgb 8.8 14.0 - 18.0 06/08/2017 [facility] MCH 31.5 27.0 - 31.0 06/08/2017 [facility] RBC 2.80 4.70 - 6.10 06/08/2017 [facility] MCHC 33.1 32.0 - 36.0 06/08/2017 [facility] Platelet 151 133 - 450 06/08/2017 [facility] RDW 16.7 11.5 - 14.5 06/08/2017 [facility] WBC 5.6 3.7 - 10.4 06/08/2017 [facility] URINE AND STOOL UA Color Ltyellow 06/07/2017 [facility] URINE AND STOOL UA Urobilinogen <=1.0 mg/dL 0.1 - 1.0 06/07/2017 [facility] URINE AND STOOL UA Sq Epi None Seen 06/07/2017 [facility] URINE AND STOOL UA RBC 6 0 - 2 06/07/2017 [facility] URINE AND STOOL UA Mucus Few [...] UA Ketones Negative mg/dL Negative mg/dL 06/07/2017 [facility] URINE AND STOOL UA RBC 3 0 - 2 06/07/2017 [facility] URINE AND STOOL UA Amorph Columba Occasional /HPF None Seen /HPF 06/07/2017 [facility] URINE AND STOOL UA Mucus Few /LPF None Seen /LPF 06/07/2017 [facility] URINE AND STOOL UA Bacteria Few /HPF None Seen /HPF 06/07/2017 [facility] URINE AND STOOL UA WBC 2 0 - 5 06/07/2017 [facility] URINE AND STOOL UA Color Ltyellow 06/07/2017 [facility] URINE AND STOOL UA Sq Epi None Seen 06/07/2017 [facility] URINE AND STOOL UA Turbidity Slight *ABN* (06/07/17 3:27 AM) Clear 06/07/2017 [facility] CHEM PANEL Ammonia 37.0 <=45.0 uMol/L 06/07/2017 [facility] CHEM PANEL Lactic Acid Lvl 0.8 0.5 - 2.2 06/07/2017 [facility] CARDIAC ENZYMES CK MB Index 3.2 0.0 - 2.5 06/07/2017 [facility] CARDIAC ENZYMES Troponin-I 0.03 0.00 - 0.40 06/07/2017 [facility] CARDIAC ENZYMES Total CK 112 12 - 191 06/07/2017 [facility] CARDIAC ENZYMES CK MB 3.6 0.5 - 3.6 06/07/2017 [facility] CHEM PANEL Phosphorus 3.3 2.5 - 4.5 06/07/2017 [facility] CHEM PANEL Magnesium Lvl 2.4 1.8 - 2.4 06/07/2017 [facility] ELECTROLYTES AGAP 15.6 10.0 - 20.0 06/07/2017 [facility] ELECTROLYTES Bili Total 0.6 0.2 - 1.3 06/07/2017 [facility] ELECTROLYTES Alk Phos 186 39 - 136 06/07/2017 [facility] ELECTROLYTES B/C Ratio 20 6 - 25 06/07/2017 [facility] ELECTROLYTES A/G Ratio 0.6 0.7 - 1.6 06/07/2017 [facility] ELECTROLYTES Potassium Lvl 4.6 3.5 - 5.1 06/07/2017 [facility] ELECTROLYTES Sodium Lvl 140 135 - 145 06/07/2017 [facility] ELECTROLYTES Globulin 4.4 2.7 - 4.2 06/07/2017 [facility] ELECTROLYTES AST 19 0 - 37 06/07/2017 [facility] ELECTROLYTES Chloride Lvl 107 95 - 109 06/07/2017 [facility] ELECTROLYTES Calcium Lvl 7.8 8.5 - 10.5 06/07/2017 [facility] ELECTROLYTES CO2 22 24 - 32 06/07/2017 [facility] ELECTROLYTES ALT 22 0 - 65 06/07/2017 [facility] ELECTROLYTES Albumin Lvl 2.5 3.5 - 5.0 06/07/2017 [facility] ELECTROLYTES Total Protein 6.9 6.4 - 8.4 06/07/2017 [facility] ELECTROLYTES eGFR 19 06/07/2017 Result Comment: [...] should be multiplied by the estimated BMI. [facility] ELECTROLYTES Creatinine Lvl 3.14 0.50 - 1.40 06/07/2017 [facility] ELECTROLYTES BUN 63 7 - 22 06/07/2017 [facility] ELECTROLYTES Glucose Lvl 246 70 - 99 06/07/2017 [facility] HEMATOLOGY Segs-Bands # 7.8 1.5 - 8.1 06/07/2017 [facility] HEMATOLOGY Monocytes # 0.7 0.0 - 0.8 06/07/2017 [facility] HEMATOLOGY Lymphocytes 8.0 20.0 - 40.0 06/07/2017 [facility] HEMATOLOGY Lymphocytes # 0.7 1.0 - 5.5 06/07/2017 [facility] HEMATOLOGY Monocytes 7.3 2.0 - 12.0 06/07/2017 [facility] HEMATOLOGY Eosinophils 0.5 0.0 - 4.0 06/07/2017 [facility] Basophils 0.5 0.0 - 1.0 06/07/2017 [facility] HEMATOLOGY Segs 83.7 45.0 - 75.0 06/07/2017 [facility] MPV 9.0 7.4 - 10.4 06/07/2017 [facility] MCH 31.0 27.0 - 31.0 06/07/2017 [facility] HEMATOLOGY Hct 28.5 42.0 - 54.0 06/07/2017 [facility] HEMATOLOGY MCV 96.4 80.0 - 94.0 06/07/2017 [facility] RBC 2.96 4.70 - 6.10 06/07/2017 [facility] HEMATOLOGY Hgb 9.2 14.0 - 18.0 06/07/2017 [facility] HEMATOLOGY WBC 9.3 3.7 - 10.4 06/07/2017 [facility] HEMATOLOGY RDW 16.3 11.5 - 14.5 06/07/2017 [facility] HEMATOLOGY Platelet 137 133 - 450 06/07/2017 [facility] MCHC 32.2 32.0 - 36.0 06/07/2017 [facility] HEMATOLOGY INR 1.19 0.85 - 1.17 06/07/2017 [facility] PT 15.2 12.0 - 14.7 06/07/2017 [facility] PTT 47.7 22.9 - 35.8 06/07/2017 [facility] 25-Hydroxyvitamin D [Mass/volume] in Serum or Plasma vitamin D,25-oh,total,ia 14 30 - 100 03/15/2017 [facility] Comprehensive metabolic 1999 panel - [...] panel - Serum or Plasma eGFR non-afr. [place] 27 > or=60 03/13/2017 [facility] Comprehensive metabolic 1999 panel - Serum or Plasma eGFR 31 > or=60 03/13/2017 [facility] Comprehensive metabolic 1999 panel - Serum or Plasma BUN/creatinine ratio 22 6 - 22 03/13/2017 [facility] Comprehensive metabolic 1999 panel - Serum or Plasma sodium 131 135 - 146 03/13/2017 [facility] Comprehensive metabolic 1999 panel - Serum or Plasma potassium 4.8 3.5 - 5.3 03/13/2017 [facility] Comprehensive metabolic 1999 panel - Serum or Plasma chloride 95 98 - 110 03/13/2017 [facility] Comprehensive metabolic 1999 panel - Serum or Plasma carbon dioxide 26 20 - 31 03/13/2017 [facility] Comprehensive metabolic 1999 panel - Serum or Plasma calcium 8.9 8.6 - 10.3 03/13/2017 [facility] Comprehensive metabolic 1999 panel - Serum or Plasma protein, total 6.6 6.1 - 8.1 03/13/2017 [facility] Comprehensive metabolic 1999 panel - Serum or Plasma albumin 3.2 3.6 - 5.1 03/13/2017 [facility] Comprehensive metabolic 1999 panel - Serum or Plasma globulin 3.4 1.9 - 3.7 03/13/2017 [facility] Comprehensive metabolic 1999 panel - Serum or Plasma albumin/globulin ratio 0.9 1.0 - 2.5 03/13/2017 [facility] Comprehensive metabolic 1999 panel - Serum or Plasma bilirubin, total 0.5 0.2 - 1.2 03/13/2017 [facility] Comprehensive metabolic 1999 panel - Serum or Plasma alkaline phosphatase 146 40 - 115 03/13/2017 [facility] [facility] 1999 panel - Serum or Plasma AST 11 10 - 35 03/13/2017 [facility] Comprehensive metabolic 1999 panel - Serum or Plasma ALT 9 9 - 46 03/13/2017 [facility] Lipid 1995 panel - Serum or Plasma cholesterol, total 268 <200 03/13/2017 [facility] Lipid 1995 panel - Serum or Plasma HDL cholesterol 50 >40 03/13/2017 [facility] Lipid 1995 panel - Serum [...] Plasma magnesium 2.2 1.5 - 2.5 03/13/2017 [facility] Phosphate [Mass/volume] in Serum or Plasma phosphate ( phosphorus) 4.6 2.1 - 4.3 03/13/2017 [facility] Thyrotropin [Units/volume] in Serum or Plasma TSH 1.83 0.40 - 4.50 03/13/2017 [facility] Hemoglobin A1c/Hemoglobin.total in Blood hemoglobin A1C >14.0 <5.7 03/13/2017 [facility] Erythrocyte sedimentation rate by Westergren method sed rate by modified westergren 92 < or=20 03/12/2017 [facility] CBC W Auto Differential panel - Blood white blood cell count 7.5 3.8 - 10.8 03/12/2017 [facility] CBC W Auto Differential panel - Blood red blood cell count 4.35 4.20 - 5.80 03/12/2017 [facility] CBC W Auto Differential panel - Blood hemoglobin 12.9 13.2 - 17.1 03/12/2017 [facility] CBC W Auto Differential panel - Blood hematocrit 39.9 38.5 - 50.0 03/12/2017 [facility] CBC W Auto Differential panel - Blood MCV 91.7 80.0 - 100.0 03/12/2017 [facility] CBC W Auto Differential panel - Blood MCH 29.7 27.0 - 33.0 03/12/2017 [facility] CBC W Auto Differential panel - Blood MCHC 32.3 32.0 - 36.0 03/12/2017 [facility] CBC W Auto Differential panel - Blood RDW 12.2 11.0 - 15.0 03/12/2017 [facility] CBC W Auto Differential panel - Blood platelet count 281 140 - 400 03/12/2017 [facility] CBC W Auto Differential panel - Blood MPV 11.0 7.5 - 12.5 03/12/2017 [facility] CBC W Auto Differential panel - Blood absolute neutrophils 5730 1500 - 7800 03/12/2017 [facility] CBC W Auto Differential panel - Blood absolute lymphocytes 1013 850 - 3900 03/12/2017 [facility] CBC W Auto Differential panel - Blood absolute monocytes 578 200 - 950 03/12/2017 [facility] CBC W Auto Differential panel - Blood absolute eosinophils 98 15 - 500 03/12/2017 [facility] CBC W Auto Differential panel - Blood absolute basophils 83 0 - 200 03/12/2017 [facility] CBC W Auto Differential panel - Blood neutrophils 76.4 03/12/2017 [facility] CBC W Auto Differential panel - Blood lymphocytes 13.5 03/12/2017 [facility] CBC W Auto Differential panel - Blood monocytes 7.7 03/12/2017 [facility] CBC W Auto Differential panel - Blood eosinophils 1.3 03/12/2017 normal [facility] CBC W Auto Differential panel - Blood basophils 1.1 03/12/2017 normal [facility] CHEM PANEL Calcium Lvl 7.6 8.5 - 10.5 02/10/2017 [facility] CHEM PANEL CO2 28 24 - 32 02/10/2017 [facility] CHEM PANEL AGAP 10.5 10.0 - 20.0 02/10/2017 [facility] CHEM PANEL eGFR 30 02/10/2017 Result [...] should be multiplied by the estimated BMI. [facility] CHEM PANEL Potassium Lvl 3.5 3.5 - 5.1 02/10/2017 [facility] CHEM PANEL Chloride Lvl 106 95 - 109 02/10/2017 [facility] CHEM PANEL Sodium Lvl 141 135 - 145 02/10/2017 [facility] CHEM PANEL Creatinine Lvl 2.20 0.50 - 1.40 02/10/2017 [facility] CHEM PANEL BUN 38 7 - 22 02/10/2017 [facility] CHEM PANEL Glucose Lvl 85 70 - 99 02/10/2017 [facility] HEMATOLOGY MPV 8.0 7.4 - 10.4 02/10/2017 [facility] HEMATOLOGY Platelet 224 133 - 450 02/10/2017 [facility] HEMATOLOGY RDW 13.6 11.5 - 14.5 02/10/2017 [facility] HEMATOLOGY MCV 93.3 80.0 - 94.0 02/10/2017 [facility] HEMATOLOGY Hct 32.3 42.0 - 54.0 02/10/2017 [facility] HEMATOLOGY MCHC 34.0 32.0 - 36.0 [...] HEMATOLOGY Segs 62.8 45.0 - 75.0 02/10/2017 [facility] CHEM PANEL Bili Total 0.6 0.2 - 1.3 02/09/2017 [facility] CHEM PANEL Alk Phos 121 39 - 136 02/09/2017 [facility] CHEM PANEL Calcium Lvl 8.0 8.5 [...] Creatinine Lvl 2.33 0.50 - 1.40 02/09/2017 [facility] CHEM PANEL Sodium Lvl 140 135 - 145 02/09/2017 [facility] CHEM PANEL BUN 32 7 - 22 02/09/2017 [facility] CHEM PANEL AGAP 12.8 10.0 - 20.0 02/09/2017 [facility] CHEM PANEL Chloride Lvl 104 95 - 109 02/09/2017 [facility] CHEM PANEL CO2 27 24 - 32 02/09/2017 [facility] CHEM PANEL Glucose Lvl 262 70 - 99 02/09/2017 [facility] CHEM PANEL eGFR 28 02/09/2017 Result [...] should be multiplied by the estimated BMI. [facility] CARDIAC ENZYMES CK MB Index 3.8 0.0 - 2.5 02/08/2017 [facility] CARDIAC ENZYMES Troponin-I 0.05 0.00 - 0.40 02/08/2017 [facility] CARDIAC ENZYMES CK MB 3.1 0.5 - 3.6 02/08/2017 [facility] CARDIAC ENZYMES Total CK 81 12 - 191 02/08/2017 [facility] ELECTROLYTES AGAP 9.3 10.0 - 20.0 02/08/2017 [facility] ELECTROLYTES eGFR 26 02/08/2017 Result Comment: [...] should be multiplied by the estimated BMI. [facility] ELECTROLYTES CO2 29 24 - 32 02/08/2017 [facility] ELECTROLYTES Chloride Lvl 105 95 - 109 02/08/2017 [facility] ELECTROLYTES Calcium Lvl 8.2 8.5 - 10.5 02/08/2017 [facility] ELECTROLYTES Glucose Lvl 78 70 - 99 02/08/2017 [facility] ELECTROLYTES BUN 29 7 - 22 02/08/2017 [facility] ELECTROLYTES Creatinine Lvl 2.50 0.50 - 1.40 02/08/2017 [facility] ELECTROLYTES Sodium Lvl 140 135 - 145 02/08/2017 [facility] ELECTROLYTES Potassium Lvl 3.3 3.5 - 5.1 02/08/2017 [facility] HEMATOLOGY Basophils 0.6 0.0 - 1.0 02/08/2017 [facility] HEMATOLOGY Eosinophils 0.2 0.0 - 4.0 02/08/2017 [facility] HEMATOLOGY Lymphocytes # 0.7 1.0 - 5.5 02/08/2017 [facility] HEMATOLOGY Segs-Bands # 8.2 1.5 - 8.1 02/08/2017 [facility] HEMATOLOGY Basophils # 0.1 0.0 - 0.2 02/08/2017 [facility] HEMATOLOGY Monocytes # 0.5 0.0 - 0.8 02/08/2017 [facility] HEMATOLOGY Lymphocytes 7.0 20.0 - 40.0 02/08/2017 [facility] HEMATOLOGY Segs 86.6 45.0 - 75.0 02/08/2017 [facility] HEMATOLOGY Monocytes 5.6 2.0 - 12.0 02/08/2017 [facility] HEMATOLOGY PTT 37.1 22.9 - 35.8 02/08/2017 [facility] HEMATOLOGY PT 13.3 12.0 - 14.7 02/08/2017 [facility] HEMATOLOGY INR 1.01 0.85 - 1.17 02/08/2017 [facility] HEMATOLOGY MCHC 33.2 32.0 - 36.0 02/08/2017 [facility] HEMATOLOGY RBC 3.83 4.70 - 6.10 02/08/2017 [facility] HEMATOLOGY WBC 9.4 3.7 - 10.4 02/08/2017 [facility] Hgb 11.9 14.0 - 18.0 02/08/2017 [facility] Platelet 251 133 - 450 02/08/2017 [facility] RDW 13.6 11.5 - 14.5 02/08/2017 [facility] MPV 8.4 7.4 - 10.4 02/08/2017 [facility] MCV 93.7 80.0 - 94.0 02/08/2017 [facility] Hct 35.9 42.0 - 54.0 02/08/2017 [facility] MCH 31.1 27.0 - 31.0 02/08/2017 [facility] LIPIDS Chol 303 <=199 mg/dL 02/08/2017 [facility] LIPIDS HDL 56 >=61 mg/dL 02/08/2017 [facility] LIPIDS VLDL 27 02/08/2017 [facility] LIPIDS LDL (Calculated) 220 <=99 mg/dL 02/08/2017 [facility] LIPIDS Trig 133 <=149 mg/dL 02/08/2017 [facility] LIPIDS CHD Risk 5.41 4.00 - 7.30 02/08/2017 [facility] SPECIAL CHEMISTRY Hgb A1C 12.9 <=5.6 % 02/08/2017 [facility] Pathology Reports No Data Provided for [...] speech pathology report for further details. SL: [id number] 06/08/2017 [facility] Brain wo contrast CT Clinical Indication: [...] chronic microvascular ischemic changes. SL: KPATEL-M 06/07/2017 [facility] Spine cervical wo contrast CT Clinical [...] acute fractures or subluxations. SL: KPATEL-M 06/07/2017 [facility] Pelvis AP DX Clinical Indication: Status [...] within the visualized spine. SL: UMMTEL-M 06/07/2017 [facility] Chest 1view DX EXAM: Chest x-ray [...] evidence of pulmonary edema. SL: UKJOHN-Emilie 06/07/2017 [facility] Retroperitoneal Complete US Clinical Indication: - [...] 1. Unremarkable renal U/S SL: SROSENBLUM-PC 02/09/2017 [facility] Esophagus BA swallow function video DX Patient Name: EDWIGE HORVATH : 1950; Age: 66 years Male MR: [id number] Study: Esophagus BA swallow function video DX [...] penetration with deep penetration on partial volumes. Gilmore consistency barium: Flash penetration. Pudding coated barium: No aspiration or any significant laryngeal penetration. Barium with cracker preparation: No aspiration or any significant laryngeal penetration. SL: [id number] 02/09/2017 [facility] contrast MRI Clinical Indication: Slurred speech [...] disease changes/small vessel disease. SL: KPATEL-M 02/09/2017 [facility] contrast MRA Clinical Indication: Patient complained of slurred speech and unsteady gait since this morning. Stroke Comparison: CT head 02/08/2017. Technique: Magnetic resonance angiography of the [place] of Ti[place] was performed without contrast. 3D [...] hypoplasia or severe stenosis. SL: KPANESS 02/09/2017 [facility] Neck wo contrast MRA Clinical Indication: [...] or left vertebral arteries. SL: KPANESS 02/09/2017 [facility] Brain contrast CT Study: Brain wo [...] skull is intact. Mild left frontal and vamp-jj-ndbscnca bilateral ethmoid air cell opacification is present. [...] would be recommended for further assessment. SL: [id number] 02/08/2017 [facility] Brain wo contrast CT I have been advised from the scanning technologist from [facility] that the incorrect name was applied to this examination and should be disregarded. A report will be faxed to the [facility] Emergency Department. Clinical Indication: ct dxp321.80 - right sided drift, slurred speech, woke [...] hemorrhage. Report will be faxed to the [facility] Emergency Department following the dictation at 5:23 PM SL: [id number] 02/08/2017 [facility] Chest 1view DX Chest 1view DX [...] of acute cardiopulmonary disease. SL: SSMILEY-MEGA 02/08/2017 [facility] Consultation Notes No Data Provided for This Section Discharge Summaries No Data Provided for This Section History and Physicals No Data Provided for This Section Vital Signs Vital Sign Value Date Comments Source Diastolic (mm Hg) 50 10/10/2018 [facility] Height 69 10/10/2018 [facility] Systolic (mm Hg) 110 10/10/2018 [facility] Weight 188 10/10/2018 [facility] Diastolic (mm Hg) 68 09/12/2018 [facility] Diastolic (mm Hg) 91 06/09/2017 [facility] Temperature Oral (F) 98.3 F 06/09/2017 [facility] Systolic (mm Hg) 173 06/08/2017 [facility] Diastolic (mm Hg) 82 06/08/2017 [facility] Heart Rate 60 06/08/2017 [facility] Respitory Rate 16 06/08/2017 [facility] Temperature Oral (F) 98.1 F 06/08/2017 [facility] Heart Rate 60 06/08/2017 [facility] Respitory Rate 16 06/08/2017 [facility] Systolic (mm Hg) 173 06/08/2017 [facility] Diastolic (mm Hg) 82 06/08/2017 [facility] Temperature Oral (F) 98.1 F 06/08/2017 [...] [facility] Systolic (mm Hg) 153 02/11/2017 [facility] Diastolic (mm Hg) 77 02/11/2017 [facility] Temperature Oral (F) 98.0 F 02/11/2017 [facility] Respitory Rate 16 02/11/2017 [facility] Heart Rate 60 02/11/2017 [facility] Respitory Rate 16 02/11/2017 [facility] Systolic (mm Hg) 157 02/11/2017 [facility] Diastolic (mm Hg) 80 02/11/2017 [facility] Heart Rate 57 02/11/2017 [facility] Temperature Oral (F) 98.1 F 02/11/2017 [facility] Heart Rate 58 02/11/2017 [facility] Respitory Rate 16 02/11/2017 [facility] Temperature Oral (F) 97.8 F 02/11/2017 [facility] Systolic (mm Hg) 121 02/11/2017 [facility] Diastolic (mm Hg) 61 02/11/2017 [facility] BMI Calculated 28.49 02/09/2017 [facility] Height 175.26 cm 02/09/2017 [facility] Weight 87.5 02/09/2017 [facility] BMI Calculated 33.07 02/08/2017 [facility] Weight 104.545 02/08/2017 [facility] Height 177.8 cm 02/08/2017 [facility] Encounters Location Location Details Encounter Type Encounter Number Reason For Visit Attending Provider ADM Date DC Date Status Source [facility] Observation [id number] Sanya Kumar 02/08/2017 02/11/2017 [facility] Family Practice - Care Management Анна Novoa: [address], [address], [place] [address], Ph. [id number] Анна Novoa 03/08/2017 [facility] Ramonita Allan MD: [address] [place] [address], Ph. [id number] Ramonita Allan 03/11/2017 [facility] Ramonita Allan MD: [address] [place] [address], Ph. [id number] Ramonita Allan 03/22/2017 [facility] Practice - Care Management [facility]: [address], [address], [place] [address], Ph. [id number] [facility] 04/06/2017 [facility] Ramonita Allan MD: [address] [place] [address], Ph. [id number] Ramonita Allan 04/12/2017 [facility] [address], [address], [place] [address], Ph. [id number] [facility] 04/21/2017 [facility] Practice - Care Management Анна Novoa: [address], [address], [place] [address], Ph. [id number] Анна Novoa 05/02/2017 [facility] Ramonita Allan MD: [facility] [place] [address], Ph. [id number] Ramonita Allan 05/10/2017 [facility] - Care Management Анна Novoa: [address], [address], [place] [address], Ph. [id number] Анна Novoa 05/11/2017 [facility] Joseph Miller MD: [address] [place] [address], Ph. [id number] Joseph Miller 05/18/2017 [facility] Ramonita Allan MD: [facility] [place] [address], Ph. [id number] Ramonita Allan 05/24/2017 [facility] - Care Management Анна Novoa: [address], [address], [place] [address], Ph. [id number] Анна Novoa 05/25/2017 [facility] - Care Management Анна Novoa: [address], [address], [place] [address], Ph. [id number] Анна Novoa 06/01/2017 [facility] Observation [id number] April Arthur 06/07/2017 06/09/2017 [facility] Practice - Care Management Анна Novoa: [address], [address], [place] [address], Ph. [id number] Анна Novoa 06/15/2017 [facility] Ramonita Allan MD: [address] [place] [address], Ph. [id number] Ramonita Allan 03/28/2018 [facility] Ramonita Allan MD: [address] [place] [address], Ph. [id number] Ramonita Allan 04/25/2018 [facility] Ramonita Allan MD: [address] [place] [address], Ph. [id number] Ramonita Allan 04/25/2018 [facility] Ramonita Allan MD: [address] [place] [address], Ph. [id number] Ramonita Allan 04/25/2018 [facility] MD: [address] [place] [address], Ph. [id number] Ramonita Allan 05/23/2018 [facility] Ramonita Allan MD: [facility] [place] [address], Ph. [id number] Ramonita Allan 05/23/2018 [facility] Ramonita Allan MD: [address] [place] [address], Ph. [id number] Ramonita Allan 07/11/2018 [facility] Ramonita Allan MD: [address] [place] [address], Ph. [id number] Ramonitaconsuelo Allan 07/11/2018 [facility] Departed Emergency Room [id number] EDUARDO DEL CID MD 07/26/2018 07/26/[address] [facility] Ramonita Allan MD: [address] [place] [address], Ph. [id number] Ramonita Allan 08/08/2018 [facility] Ramonita Allan MD: [address] [place] [address], Ph. [id number] Ramonita Allan 08/08/2018 [facility] Ramonita Allan MD: [address] [place] [address], Ph. [id number] Ramonita Allan 09/12/2018 [facility] Ramonita Allan MD: [address] [place] [address], Ph. [id number] Ramonita Allan 09/12/2018 [facility] Ramonita Allan MD: [address] [place] [address], Ph. [id number] Ramonitaconsuelo Allan 10/10/2018 [facility] Procedures Procedure Code Date Perfomer Comments Source Pacemaker 07/07/2018 [facility] Fistula Cannulation Set, Ea [id number] 06/09/2017 [facility] Other 04/11/2017 [facility] Amputation 04/11/2005 [facility] Stent placement [id number] [facility] Assessment and Plan Assessment and Plan [...] Date: 02/11/17 NEUROLOGY Progress Note - Daily [facility] Completed: Feb, 09:03 by Maria [...] intact ftn, hts Abnormal movements: none Coordination wnauwb-ce-bmoc is intact Gait patient stood up and [...] expect 1 midnight stay for now 02/11/2017 [facility] Plan of Care Plan of Care Date Source Discharge Date 07/26/18 8:29pm Disposition LEFT AFTER MEDICAL SCREENING Condition at Discharge Other Forms Provided Work/School Excuse Prescriptions See Medication Section 07/26/2018 [facility] Social History Social History Date Source Social [...] 05/27/2017 4:15pm Not Applicable Not Applicable 07/26/2018 [facility] Social History TypeResponse Smoking Status Never smoker; Previous treatment: None; Ready to change: No; Concerns about tobacco use in household: No; Exposure to Tobacco Smoke None; Cigarette Smoking Last 365 Days No; Reg Smoking Cessation Counseling No entered on: 06/07/17 06/07/2017 [facility] Smoking Status Former Smoker (1 PPW) 03/11/2017 [facility] Family History No Data Provided for This Section Advance Directives Order Name Results Value Date Source Advance Directives Advance Directives Directive Response Recorded Date/Time Does the patient have an advance directive? No 05/27/17 4:15pm If yes, is advance directive on file with [facility]? No 05/27/17 4:15pm If not on file with [facility] will patient provide a copy? No 05/27/17 4:15pm 07/26/2018 [facility] Functional Status No Data Provided for This Section
--- NOTE | 2018-12-31 18:04 | NUR ---
received report from er awaiting for pt to arrive to floor
[2018-12-31 18:25] LABS: PLATELET ESTIMATE MODERATELY DECREASED; PLATELET MORPHOLOGY COMMENT FEW LARGE
[2018-12-31 18:26] LABS: RBC MORPHOLOGY COMMENT NORMAL
[2018-12-31 18:30] VITALS: BP 110/64
[2018-12-31 19:30] VITALS: BP 110/64
--- NOTE | 2018-12-31 19:46 | NUR ---
Report taken from morning Sherry Koenig.patient already is in the unit.allert oriented x1.no family member with patient right now.tele [address]iv to right for arm patent..Left upper arm fistula for dialysis.bed locked and in lowest position.phone and call light within reach.instructed,to call for assistance as needed. consults been called.
[2018-12-31 20:00] LABS: CREATINE KINASE MB 2.8 ng/mL (0-5.0)
[2018-12-31 20:14] VITALS: BP 110/64
[2018-12-31] MEDS ORDERED: DEXTROSE 50% SYRINGE 50 ML IV PRN (20:15)
[2018-12-31] MEDS: INSULIN LISPRO 100 UNIT/1 ML 3ML VIAL SQ SCH (21:32)
[2019-01-01] VITALS (8 sets, daily range): BP systolic 100–142; BP diastolic 56–70
--- NOTE | 2019-01-01 00:52 | NUR ---
No family member with the patient to review the home medications.patient is resting in the bed.
[2019-01-01 06:32] LABS: BASOPHILS % 0.9 % (0.0-1.0); EOSINOPHILS # (AUTO) 0.2 (0.0-0.4); EOSINOPHILS % 3.5 % (0.0-6.0); HEMATOCRIT 27.8 % (38.2-49.6); HEMOGLOBIN 9.1 g/dL (14.0-18.0); LYMPHOCYTES # (AUTO) 0.7 (1.0-3.2); LYMPHOCYTES % 16.4 % (18.0-39.1); MEAN CORPUSCULAR HGB CONC 32.7 g/dL (31-35); MEAN CORPUSCULAR VOLUME 100.7 fL (81-99); MONOCYTES # (AUTO) 0.5 (0.2-0.8); MONOCYTES % 11.2 % (4.4-11.3); NEUTROPHILS # (AUTO) 2.9 (2.1-6.9); NEUTROPHILS % 67.5 % (38.7-80.0); PLATELET COUNT 101 x10e3/uL (140-360); RED BLOOD COUNT 2.76 x10e6/uL (4.3-5.7)
[2019-01-01 07:02] LABS: CREATINE KINASE MB 2.6 ng/mL (0-5.0)
[2019-01-01 07:12] LABS: ALBUMIN 3.2 g/dL (3.5-5.0); ALBUMIN/GLOBULIN RATIO 0.9 (0.8-2.0); ANION GAP 16.5 mmol/L (8-16); CREATININE, SERUM 6.97 mg/dL (0.72-1.25); POTASSIUM 4.5 mmol/L (3.5-5.1)
--- NOTE | 2019-01-01 07:16 | NUR ---
BED SIDE SHIFT REPORT GIVEN TO THE ONCOMING RN.STABLE CONDITION.
[2019-01-01] MEDS: INSULIN LISPRO 100 UNIT/1 ML 3ML VIAL SQ SCH ×4 (07:30→21:00)
--- NOTE | 2019-01-01 07:40 | NUR ---
Spoke with Missy, [facility] answering service, and notified of new HD patient.
[2019-01-01] MEDS ORDERED: LORAZEPAM 0.5 MG TAB PO PRN (08:45)
[2019-01-01] MEDS: ASPIRIN 81 MG CHEW TAB PO SCH (09:21)
[2019-01-01] MEDS: ISOSORBIDE DINITRATE 20 MG TAB PO SCH (09:21)
[2019-01-01] MEDS: FUROSEMIDE 40 MG TAB PO SCH ×3 (09:21→20:51)
[2019-01-01] MEDS ORDERED: ALBUTEROL1.25 MG/3 INH (09:56)
[2019-01-01] MEDS ORDERED: ALBUTEROL SULF 0.083% NEB SOLN 3 ML NEB INH PRN ×2 (10:00→10:15)
[2019-01-01] MEDS ORDERED: ONDANSETRON HCL 4 MG ORAL DISINTEGRATING TAB PO PRN (10:45)
--- NOTE | 2019-01-01 11:27 | NUR ---
Report given to Patel Childress RN of patient's status. Transferred to [facility] via bed. Accompanied by . No s/s of acute distress noted
--- NOTE | 2019-01-01 11:37 | NUR ---
Recvd patient from MS 1, AAOx1-2, at bed side, bed alarm on, will monitor
[2019-01-01] MEDS: SEVELAMER CARBONATE 800 MG TAB PO SCH ×2 (12:40→17:00)
[2019-01-01] MEDS ORDERED: MANNITOL 25% 12.5GM/50 ML VIAL IV PRN (13:30)
[2019-01-01] MEDS ORDERED: SODIUM CHLORIDE 0.9% 250ML 500 ML IV PRN (13:30)
[2019-01-01] MEDS ORDERED: SODIUM CHLORIDE 0.9% 1000ML 2,000 ML IV PRN (13:30)
[2019-01-01] MEDS ORDERED: ALBUMIN 25% 12.5GM 0.25 GM/ML BTL IV PRN (13:30)
[2019-01-01 14:27] LABS: CREATINE KINASE MB 2.5 ng/mL (0-5.0)
--- NOTE | 2019-01-01 15:18 | History and Physical ---
PRIMARY CARE PHYSICIAN: Dr. Ramonita Allan with [facility]. CHIEF COMPLAINT: Vascular congestion, short dialysis day on Tuesday due to arriving late. HISTORY OF PRESENT ILLNESS: This is a 68-year-old male, well known to the service with cardiomyopathy and systolic congestive heart failure chronically, did not receive the full session of dialysis on Tuesday, came home and over the weekend, the patient has increase in vascular congestion with swelling on the facial and so forth. The patient was brought into the hospital. The patient will need a full session dialysis today. The patient also had progressively declined on his walking. He does have diabetic neuropathy and osteoarthritis. The patient was recently started on tramadol. PAST MEDICAL HISTORY: End-stage renal disease, on dialysis, systolic dysfunction congestive heart failure, diabetes type 2, hypertension, dyslipidemia, diabetic neuropathy, chronic anemia, vascular dementia progressive. PAST SURGICAL HISTORY: Dialysis access, lower extremity intervention with atherectomy and [employer] of the right lower extremity, ICD. SOCIAL HISTORY: The patient does not smoke or use alcohol. No regular drugs. ALLERGIES: NO KNOWN ALLERGIES. HOME MEDICATIONS: List reviewed. REVIEW OF SYSTEMS: Lower extremity swelling and facial swelling. PHYSICAL EXAMINATION: VITAL SIGNS: Temperature is 97, blood pressure 100/56, pulse rate 74, and respirations 18. GENERAL: The patient is in no acute distress. HEENT: Normocephalic and atraumatic. Pupils reactive. Anicteric. NECK: Supple grossly. PULMONARY: Diminished breath sounds at bases with rales. CARDIOVASCULAR: S1 and S2. Regular rate and rhythm. ICD in place. ABDOMEN: Soft and obese. EXTREMITIES: Venous stasis skin changes. Peripheral vascular disease. Neuropathy. NEUROLOGIC: No focal deficit. Moving all extremities. LABORATORY DATA: Sodium is 135, potassium 4.5, chloride 97, bicarb 25, BUN 87, creatinine 6.9, and glucose 161. WBC is 4.3, hemoglobin 9.1, hematocrit 28, and platelet is 101. IMPRESSION: 1. Vascular congestion, jdfzh-uw-hvkaojn systolic dysfunction, congestive heart failure secondary to did not complete a full session of dialysis on Tuesday. 2. Multiple chronic medical problems. PLAN: Observation. Dialysis today. Continue with current medication. Obtain a 2D echo for Dr. Bentley Matthews. MD RICHIE Milian/MODL /[id number]
--- NOTE | 2019-01-01 17:55 | NUR ---
patient found unresponsive at the end of Dialysis, called rapid. BS -109, Per family BS anything below 120 is low for him, D50 IV given BS Came up to 379, patient became responsive, new orders recvd from ER Dr, Dr Jolly notified, changes insulin order recvd, keep monitoring
[2019-01-01] MEDS ORDERED: DEXTROSE 50% SYRINGE 50 ML IV PRN (18:45)
--- NOTE | 2019-01-01 19:42 | Diagnostic Imaging Report ---
History:Lethargic Comparison studies: Head CT ON 12/31/2018 Technique: Axial images were obtained from the skull base to the vertex. Coronal and sagittal images reconstructed from the axial data. Dose modulation, iterative reconstruction, and/or weight based adjustment of the mA/kV was utilized to reduce the radiation dose to as low as reasonably achievable. Intravenous contrast: None Findings: Scalp/skull: No abnormalities. Extra-axial spaces: No masses. No fluid collections. Brain sulci: Mildly prominent. Ventricles: Mild compensatory dilatation. No hydrocephalus. Parenchyma: Subtle hypodensities in the supratentorial white matter are small vessel ischemic changes. No masses, hemorrhage, acute or chronic cortical vascular insults. Sellar/suprasellar region: No abnormalities. Craniocervical junction: Patent foramen magnum. No Chiari one malformation. Incidental findings: Atherosclerotic calcifications in the carotid siphons and left vertebral artery. Impression: 1. No acute abnormalities. 2. No changes compared to the head CT of 12/31/2018 Chronic findings: * Mild generalized volume loss. * Mild supratentorial white matter small vessel ischemic changes. * Age-indeterminate lacunar insult in the central lia Signed by: Dr. Niraj Jacome M.D. on 01/01/2019 7:39 PM
--- NOTE | 2019-01-01 20:25 | Consultation ---
DATE OF CONSULTATION: 01/01/2019 HISTORY OF PRESENT ILLNESS: Mr. Tony Pelayo is a very well known to me, 68-year-old gentleman, who has been admitted with weakness, difficulty walking, and possibility of stroke. He is currently awake, alert, and oriented, no apparent distress. BiPAP by bedside. Has multiple comorbidities including prior history of CVA, history of cardiomyopathy, ejection fraction 20% with AICD placement, history of congestive heart failure, hypertension, diabetes with diabetic end-organ damage, prior history of partial colon resection, toe amputation as well as peripheral vascular disease, history of [place] in the past, multiple cardiac stents, history of hyperlipidemia, anemia, chronic kidney disease, currently scheduled for dialysis. Awake, alert, and oriented x3. Sitting up in bed, in no apparent distress. LABORATORY DATA: Labs show white count of 9.1. Chemistry shows potassium 4.5 and creatinine 6.9. IMAGING: Shows CT brain, please see official report, shows no acute abnormalities. SOCIAL HISTORY: Does not smoke or drink. FAMILY HISTORY: Significant for hypertension and diabetes. ALLERGIES: NO APPARENT DRUG ALLERGIES. CURRENT MEDICATIONS: The patient is on insulin, albuterol-Atrovent nebulizer, aspirin 81 mg daily, carvedilol 3.125 mg once a day, insulin, isosorbide 30 mg p.o. daily, lorazepam p.r.n., Xarelto 2.5 mg at bedtime, and Renagel 800 mg p.o. t.i.d. with meals, PHYSICAL EXAMINATION: GENERAL: Awake, alert, and oriented x3. No apparent distress. VITAL SIGNS: Blood pressure 114/56, pulse rate 69, afebrile, and oxygen saturation 98% on room air. HEAD AND NECK: Cornea clear. Mucosa moist. Flat neck veins. No JVD. LUNGS: Bibasilar rales. HEART: S1 and S2 audible. ABDOMEN: Soft and nontender. No apparent visceromegaly. EXTREMITIES: Lower extremity, trace edema. IMPRESSION AND PLAN: Fluid overload, end-stage renal disease, hypertension, multiple comorbidities, very poor prognosis. I will arrange for dialysis. Continue with phosphorus binders. Start erythropoietin. Discussed with . Please see orders. MD JUSTIN Lam/LAMINL /[id number]
--- NOTE | 2019-01-01 20:38 | NUR ---
RECEIVED PT IN BED AOX2 .RESPIRATIONS ARE EVEN AND UNLABORED .PT HAS DIALYSIS TODAY AND HAS TAKEN 2 L .DENIES PAIN .FAMILY AT THE BEDSIDE .CALL LIGHT WITH IN REACH .CONTINUE TO MONITOR
[2019-01-01] MEDS: RIVAROXABAN 10 MG TABLET PO SCH (20:51)
[2019-01-01] MEDS ORDERED: INSULIN GLARGINE 100 UNITS/ML VIAL SC SCH ×2 (21:00)
[2019-01-01] MEDS: CARVEDILOL 3.125 MG TAB PO SCH (21:05)
--- NOTE | 2019-01-01 21:20 | Consultation ---
DATE OF CONSULTATION: Cardiology Consultation CHIEF COMPLAINT: Increasing edema and shortness of breath. HISTORY OF PRESENT ILLNESS: The patient is a 68-year-old on dialysis, who came to the emergency room with worsening edema, shortness of breath, fluid retention, severe weakness and several falls. The patient reported also having some difficulty picking things up with his left hand and being so weak that he could not get up. PAST MEDICAL HISTORY: Significant for: 1. Peripheral vascular disease and recent atherectomy of the popliteal arteries. 2. Known coronary artery disease with stent placement in the left anterior descending artery and right coronary artery. 3. Known congestive heart failure with an ejection fraction of about 25%. 4. Severe diabetes mellitus. 5. End-stage renal disease, on dialysis. 6. Previous stroke. 7. Hypertension. CURRENT MEDICATIONS: At home include insulin, hydralazine, carvedilol, atorvastatin, Xarelto, clonidine. SOCIAL HISTORY: The patient does not drink and does not smoke. FAMILY HISTORY: The patient does have a family history of coronary artery disease. PHYSICAL EXAMINATION: GENERAL: The patient is an older male, in no obvious distress. VITAL SIGNS: Included a temperature of 96.6, pulse was 70, blood pressure 114/56. HEAD, EARS, EYES, NOSE, AND THROAT: The patient's cranium was normocephalic. Extraocular muscles were intact. Sclerae were anicteric. NECK: Supple. No jugular venous distention. CHEST: Demonstrated rhonchi bilaterally. CARDIAC: Demonstrated normal S1 and S2 with a short 2/6 systolic murmur. ABDOMEN: Demonstrated good bowel sounds. No tenderness. No masses. EXTREMITIES: The patient had bilateral 1 to 2+ edema. NEUROLOGIC: The patient was very lethargic but could be aroused. The patient was moving all of his extremities. IMAGING: The patient's EKG demonstrated normal sinus rhythm with some nonspecific ST and T-wave changes. IMPRESSION: The patient is a 68-year-old with end-stage renal disease and acute on chronic systolic heart failure. The patient's repeat echocardiogram demonstrated an ejection fraction of 20% to 25%. RECOMMENDATIONS: As follows: 1. The patient will need to require dialysis. 2. The patient will need to be continued on beta-blockers. 3. The patient will need to be continued on Xarelto. 4. Carotid duplex has been ordered to exclude carotid stenosis. MD ABIMBOLA Chase/JORGE /[id number]
[2019-01-02] VITALS (8 sets, daily range): BP systolic 124–131; BP diastolic 59–70
--- NOTE | 2019-01-02 07:29 | NUR ---
pt siting at bedside resp even and unlabored at this time, no c/o pain when asked, pt has family member sitting at bedside, call light in reach.
[2019-01-02] MEDS: INSULIN LISPRO 100 UNIT/1 ML 3ML VIAL SQ SCH ×5 (07:30→21:00)
--- NOTE | 2019-01-02 07:56 | NUR ---
BEDSIDE REPORT GIVEN ON COMING TO THE REPORT
--- NOTE | 2019-01-02 07:56 | NUR ---
BEDSIDE REPORT GIVEN ON COMING TO THE REPORT
--- NOTE | 2019-01-02 08:00 | NUR ---
spoke with about pt insulin, pt family member wants 2 units at this time, Ok to given this time, but to called Dr. Daly about sliding scale.
[2019-01-02] MEDS: FUROSEMIDE 40 MG TAB PO SCH ×3 (09:03→21:00)
[2019-01-02] MEDS: ASPIRIN 81 MG CHEW TAB PO SCH (09:03)
[2019-01-02] MEDS: SEVELAMER CARBONATE 800 MG TAB PO SCH ×3 (09:03→16:45)
[2019-01-02] MEDS: ISOSORBIDE DINITRATE 20 MG TAB PO SCH (09:03)
--- NOTE | 2019-01-02 10:03 | NUR ---
ran here to see pt. and talk to family.
--- NOTE | 2019-01-02 11:00 | NUR ---
Dr. Daly was called A/S.
--- NOTE | 2019-01-02 14:20 | NUR ---
Dr Daly here to see pt. and consulted Dr. Berrios.
[2019-01-02 14:52] LABS: FREE T4 (FREE THYROXINE) 0.87 ng/dL (0.8-1.8); THYROID STIMULATING HORMONE 2.773 uIU/mL (0.350-4.940)
--- NOTE | 2019-01-02 15:57 | NUR ---
WILL ASSIST WITH GETTING WHEELCHAIR AND ALSO CALL TO FACILITY TO SEE IF PT CAN QUALIFY FOR AMBULANCE TRANSPORT.
[2019-01-02] MEDS ORDERED: INSULIN LISPRO 100 UNIT/1 ML 3ML VIAL SQ SCH (16:30)
--- NOTE | 2019-01-02 16:30 | NUR ---
jeane Berrios here to see pt, sliding scale change, 4 units of humalog insulin to be given before meals.
--- NOTE | 2019-01-02 17:03 | NUR ---
Nutrition Screen Note RD Recommendation for Physician: -Rec adding ADA 2000 to renal diet as medically appropriate -Consult SIGNAL APPRENTICE if there is risk of aspiration Plan of Care: RD following, monitoring for tolerance and adequacy Nutrition reason for involvement: Diagnosis - ESRD Primary Diagnose(s): end-stage renal disease, fluid overload, acute on chronic systolic heart failure. PMH: 1. Peripheral vascular disease and recent atherectomy of the popliteal arteries. 2. Known coronary artery disease with stent placement in the left anterior descending artery and right coronary artery. 3. Known congestive heart failure with an ejection fraction of about 25%. 4. Severe diabetes mellitus. 5. End-stage renal disease, on dialysis. 6. Previous stroke. 7. Hypertension. Ht: 60in Wt: 185lb BMI: 35.1kg/m2 IBW: 106lb +/- 10% RD Assessment: (01/02) Chart reviewed. Labs and meds reviewed. 68yo M, who was admitted for fluid overload after not receiving a full dialysis session last week. Visited pt in the room. Pt was sleeping. Per , pt was picky with foods. stated He eats well at home. He will not eat if he doesnt like the food. No GI complains reported. reported pt having chewing difficulty due to missing partial denture; pt also with swallowing problem that has been going on for over a year. Per , he would choke on foods and liquids. Last SIGNAL APPRENTICE eval was done a year ago at [place] and result was normal, per . Communicated issue with CHRISSIE Young. Per RN, pt ate well for breakfast this AM with no complain. Will rec chopped diet with extra gravy due to missing denture. Consult SIGNAL APPRENTICE if there is risk of aspiration. Will continue to monitor and follow. Current Diet: Renal diet Malnutrition Evaluation (01/02/2019) The patient does not meet criteria for a specified degree of malnutrition at this time. Will re-evaluate at follow-up as appropriate. Diet Education Needs Assessment: Diet education not indicated. Per , pt is aware of diet restrictions but doesnt follow them at home. He sees a dietitian at [facility]. Nutrition Care Level: low Signed: Kianna Hu, MS, RD, LD
--- NOTE | 2019-01-02 19:40 | NUR ---
report given to on coming nurse, pt stable at this time.
--- NOTE | 2019-01-02 19:57 | NUR ---
RECEIVED PT SITING ON THE CHAIR .DENIES PAIN .HELPED THE PT BACK TO THE BED.CALL LIGHT WITH IN REACH .CONTINUE TO MONITOR
[2019-01-02] MEDS: RIVAROXABAN 10 MG TABLET PO SCH (21:00)
[2019-01-02] MEDS: CARVEDILOL 3.125 MG TAB PO SCH (21:00)
--- NOTE | 2019-01-02 21:27 | Consultation ---
DATE OF CONSULTATION: 01/02/2019 Endocrine Consultation This is a patient of Dr. Jolly and Dr. Hector Daly. Thank you very much for referring this patient. HISTORY OF PRESENT ILLNESS: This is a 68-year-old gentleman, who was referred to me for evaluation of uncontrolled diabetes mellitus. The patient reportedly is a known diabetic for almost 36 years, has multiple complications from diabetes including severe diabetic sensorimotor neuropathy, peripheral vascular disease, and end- stage renal failure, on chronic hemodialysis. He also has history of chest pain, coronary artery disease and is admitted to the hospital because of extreme weakness and congestive cardiac failure. The patient, according to the , takes about 20 of Lantus once a day and Humalog depending upon the blood sugars. His blood sugars have been fluctuating quite significantly during the hospital stay. He also has history of hypertension and is on several other medications at home including Coreg and isosorbide. PHYSICAL EXAMINATION: GENERAL: Today, the patient is alert, awake, slightly lethargic. VITAL SIGNS: His heart rate is around 78 and blood pressure is 131/65 mmHg. HEENT: Essentially unremarkable. NECK: Thyroid is palpable. Clinically, he is near euthyroid. CHEST: Bilateral vesicular breathing. No rales heard. CARDIAC: First and second heart sounds. There is no third or fourth heart sounds. There is ejection systolic murmur grade 2/6. 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 CLINICAL IMPRESSION: 1. Diabetes mellitus type 2, uncontrolled with complications. 2. End-stage renal failure, on chronic hemodialysis. 3. Hypertension. 4. Coronary artery disease. 5. Congestive cardiac failure. PLAN: At this time is to put him on the Lantus once a day in the morning and Humalog with each meal depending upon the blood sugars. Thank you again for referring this patient. I will be following this patient with you. MD EDITH Brown/JORGE /[id number]
[2019-01-03] VITALS (7 sets, daily range): BP systolic 102–133; BP diastolic 51–65
--- NOTE | 2019-01-03 06:38 | NUR ---
PT RESTED DURING THE NIGHT IV WAS OUT PUT NEW IV AT RT WRIST .DENIES PAIN .CALL LIGHT WITH IN REACH .CONTINUE TO MONITOR
--- NOTE | 2019-01-03 07:14 | NUR ---
BEDSIDE REPORT GIVEN TO THE ONCOMING NURSE
--- NOTE | 2019-01-03 07:25 | NUR ---
PATIENT IN BED RESTING WITH EYES CLOSED, NO DISTRESS NOTED. LEFT UPPER ARM DIALYSIS FISTULA INTACT, TELEMETRY BOX IN PLACE. BED IN LOWER POSITION, CALL LIGHT AT REACH.
[2019-01-03] MEDS ORDERED: INSULIN GLARGINE 100 UNITS/ML VIAL SC SCH (07:30)
[2019-01-03] MEDS: INSULIN LISPRO 100 UNIT/1 ML 3ML VIAL SQ SCH ×5 (07:30→16:30)
[2019-01-03] MEDS: SEVELAMER CARBONATE 800 MG TAB PO SCH ×3 (08:22→17:00)
[2019-01-03] MEDS: ISOSORBIDE DINITRATE 20 MG TAB PO SCH (09:00)
[2019-01-03] MEDS: ASPIRIN 81 MG CHEW TAB PO SCH (09:00)
[2019-01-03] MEDS: FUROSEMIDE 40 MG TAB PO SCH ×2 (09:00→15:00)
--- NOTE | 2019-01-03 11:44 | NUR ---
PATIENT IN BED RESTING WITH HEAD OF BED ELEVATED. DIALYSIS NURSE WILL BE IN SOON FOR TREATMENT. BED IN LOWER POSITION, CALL LIGHT AT REACH.
[2019-01-03] MEDS ORDERED: INSULIN LISPRO 100 UNIT/1 ML 3ML VIAL SQ SCH (16:30)
--- NOTE | 2019-01-03 16:36 | NUR ---
BED SIDE HEMODIALYSIS TREATMENT IN PROGRESS, NO DISTRESS NOTED. WILL CONTINUE TO MONITOR.
--- NOTE | 2019-01-03 21:04 | NUR ---
PT HAD DIALYSIS TODAY AND HAS TAKEN 3L .PT HAS DISCHARGED TO HOME /FAMILY HAS TAKEN THE PT
--- NOTE | 2019-01-04 18:45 | Discharge Summary ---
CONSULTANTS: 1. Hector Daly MD. 2. Jw Berrios MD. 3. Bentley Matthews MD. PRIMARY CARE PHYSICIAN: Ramonita Allan MD FINAL DIAGNOSIS: Fluid overload secondary to shortened dialysis. SUMMARY: This is a 68-year-old male with vascular dementia and baseline confusion. The patient was uremic. He did not have a complete course of dialysis. The patient came in with increase in fluid overload. Why he was hospitalized, there was some complication with blood sugar. The patient is otherwise stable. Blood sugar per the patient and family should be above 150 mostly and if lower, the patient may get confused which he did have an episode. There is some conflicting management per sliding scale coverage and the sugar. The patient however did okay and no complication. The patient's blood sugar is now better at 161. He did receive dialysis today and post dialysis the patient is stable. He will be discharged home. Resume home medication. He will continue with dialysis outpatient with some adjustment of the length of dialysis for fluid management. MD RICHIE Milian/MODL /[id number]
== END 2019-01-03 20:50 | disposition home or self-care (01) ==
LOC: ER 15:25 → ERHOLD 17:11 → MED/SURG 18:38 → MED/SURG3 01-01 11:34
PROVIDERS: ADMIT Internal Medicine; ATTEND Internal Medicine
DX: I13.2 Hypertensive heart and chronic kidney disease with heart failure and with stage 5 chronic kidney disease, or end stage renal disease (principal); I50.23 Acute on chronic systolic (congestive) heart failure; R53.1 Weakness; W01.0XXA Fall on same level from slipping, tripping and stumbling without subsequent striking against object, initial encounter; E78.5 Hyperlipidemia, unspecified; E11.22 Type 2 diabetes mellitus with diabetic chronic kidney disease; Z83.3 Family history of diabetes mellitus; Z82.49 Family history of ischemic heart disease and other diseases of the circulatory system; F03.90 Unspecified dementia, unspecified severity, without behavioral disturbance, psychotic disturbance, mood disturbance, and anxiety; Z95.810 Presence of automatic (implantable) cardiac defibrillator; N18.6 End stage renal disease; Z99.2 Dependence on renal dialysis; I50.22 Chronic systolic (congestive) heart failure; E11.42 Type 2 diabetes mellitus with diabetic polyneuropathy; I25.2 Old myocardial infarction; Z86.73 Personal history of transient ischemic attack (TIA), and cerebral infarction without residual deficits; D63.1 Anemia in chronic kidney disease; K63.89 Other specified diseases of intestine; I25.10 Atherosclerotic heart disease of native coronary artery without angina pectoris; Z79.4 Long term (current) use of insulin; Z89.422 Acquired absence of other left toe(s); Z89.421 Acquired absence of other right toe(s); F01.50 Vascular dementia, unspecified severity, without behavioral disturbance, psychotic disturbance, mood disturbance, and anxiety
CPT/HCPCS: 36415 ×4; 70450 ×2; 71045; 72125; 80053 ×2; 81001; 82550 ×2; 82553 ×2; 82948 ×4; 83036; 83735; 84439; 84443; 84484 ×2; 85025 ×2; 85610; 85730; 86705; 86706; 87040; 87086; 87340; 90935; 93005; 93306; 93880; 94640; 99284; G0378 ×4; J0696; J7030 ×2; J7799; 90962

== ENCOUNTER 2019-01-08 11:06 | Emergency (ER) | payer OTHER ==
[~2019-01-08] VITALS: Ht 154.7 cm; Wt 84.4 kg
[~2019-01-08 11:06] MED LIST changes: +ALBUTEROL1.25 MG/3 INH
--- OUTSIDE RECORDS SUMMARY | 2019-01-08 11:12 | XMS REPORT | Continuity of Care Document ---
Author Author [employer] Organization [employer] Address Unknown Phone Unavailable Care Team Providers Care Document Examiner Name Role Phone [employer] Unavailable Unavailable Problems Problem Status Onset Date Classification Date Reported Comments Source Open wound of lower leg 10/11/2018 Diagnosis 10/11/2018 [facility] Coronary arteriosclerosis 10/11/2018 Diagnosis 10/11/2018 [facility] Peripheral vascular disease 10/11/2018 Diagnosis 10/11/2018 [facility] Hospital patient 10/11/2018 Diagnosis 10/11/2018 [facility] Amputated big toe 10/10/2018 Diagnosis 10/11/2018 [facility] Onychomycosis of toenails 10/10/2018 Diagnosis 10/11/2018 [facility] Pruritus of skin 10/10/2018 Diagnosis 10/11/2018 [facility] Amputated Big Toe 10/10/2018 Problem 10/11/2018 [facility] Deep venous thrombosis of upper extremity 09/13/2018 Diagnosis 10/11/2018 [facility] Abnormal Gait Due to Muscle Weakness 09/13/2018 Problem 10/11/2018 [facility] Abnormal gait due to muscle weakness 09/12/2018 Diagnosis 10/11/2018 [facility] Congestive heart failure 09/12/2018 Diagnosis 10/11/2018 [facility] End stage renal failure on dialysis 09/12/2018 Diagnosis 10/11/2018 [facility] Body mass index 25-29 - overweight 09/12/2018 Diagnosis 10/11/2018 [facility] Productive cough 09/12/2018 Diagnosis 10/11/2018 [facility] Type II diabetes mellitus uncontrolled 09/12/2018 Diagnosis 10/11/2018 [facility] Carpal Tunnel Syndrome 08/27/2018 Problem 10/11/2018 [facility] Diabetic neuropathy 08/09/2018 Diagnosis 08/09/2018 [facility] Stented coronary artery 08/09/2018 Diagnosis 08/09/2018 [facility] Deep Venous Thrombosis of Upper Extremity 08/09/2018 Problem 10/11/2018 [facility] Screening for malignant neoplasm of colon 08/08/2018 Diagnosis 08/09/2018 [facility] Immunization 08/08/2018 Diagnosis 08/09/2018 [facility] Screening for osteoporosis 08/08/2018 Diagnosis 08/09/2018 [facility] Essential hypertension 07/11/2018 Diagnosis 08/09/2018 [facility] History of cerebrovascular accident 07/11/2018 Diagnosis 08/09/2018 [facility] Chronic obstructive lung disease 05/23/2018 Diagnosis 06/09/2018 [facility] Angina pectoris 05/23/2018 Diagnosis 06/09/2018 [facility] Senile purpura 05/23/2018 Diagnosis 06/09/2018 [facility] Tinea cruris 05/23/2018 Diagnosis 06/09/2018 [facility] Skin lesion 05/23/2018 Diagnosis 06/09/2018 [facility] Immunization refused 05/23/2018 Diagnosis 06/09/2018 [facility] History of smoking 05/23/2018 Diagnosis 05/23/2018 [facility] Adult health examination 04/25/2018 Diagnosis 06/09/2018 [facility] Benign prostatic hyperplasia 04/25/2018 Diagnosis 06/09/2018 [facility] Incontinence of feces 04/25/2018 Diagnosis 06/09/2018 [facility] Seasonal allergic rhinitis 04/25/2018 Diagnosis 06/09/2018 [facility] Advance directive discussed with patient 04/25/2018 Diagnosis 06/09/2018 [facility] Depression screening 04/25/2018 Diagnosis 06/09/2018 [facility] End Stage Renal Failure on Dialysis 12/13/2017 Problem 10/11/2018 [facility] Acute kidney failure, unspecified 06/17/2017 09/14/2017 [facility] FALL Active 06/07/2017 [facility] CHAI, GENERALIZED WEAKNESS Active 06/07/2017 [facility] Hypoglycemic state in diabetes 05/26/2017 Diagnosis 07/09/2017 [facility] Hypoglycemic State in Diabetes 05/26/2017 Problem 10/11/2018 [facility] Dyspnea at rest 05/10/2017 Diagnosis 07/09/2017 [facility] Benign Prostatic Hyperplasia 04/13/2017 Problem 10/11/2018 [facility] Cough 04/12/2017 Diagnosis 07/09/2017 [facility] Hypertensive disorder 04/12/2017 Diagnosis 07/09/2017 [facility] Acid reflux 04/12/2017 Diagnosis 07/09/2017 [facility] Type 2 diabetes mellitus 04/12/2017 Diagnosis 07/09/2017 [facility] Chronic kidney disease 03/24/2017 Diagnosis 07/09/2017 [facility] Hypotensive episode 03/24/2017 Diagnosis 07/09/2017 [facility] Altered mental status 03/24/2017 Diagnosis 07/09/2017 [facility] History of Cerebrovascular Accident 03/21/2017 Problem 10/11/2018 [facility] Type II Diabetes Mellitus Uncontrolled 03/19/2017 Problem 10/11/2018 [facility] Diabetic Neuropathy 03/19/2017 Problem 10/11/2018 [facility] Essential Hypertension 03/19/2017 Problem 10/11/2018 [facility] Congestive Heart Failure 03/19/2017 Problem 10/11/2018 [facility] Peripheral Vascular Disease 03/19/2017 Problem 10/11/2018 [facility] Chronic Kidney Disease 03/19/2017 Problem 10/11/2018 [facility] Stented Coronary Artery 03/19/2017 Problem 10/11/2018 [facility] Cerebrovascular Accident 03/19/2017 Problem 07/09/2017 [facility] Diabetic peripheral neuropathy 03/11/2017 Diagnosis 07/09/2017 [facility] Chronic kidney disease stage 3 03/11/2017 Diagnosis 07/09/2017 [facility] Cerebrovascular accident 03/11/2017 Diagnosis 07/09/2017 [facility] Mixed hyperlipidemia due to type 2 diabetes mellitus 03/11/2017 Diagnosis 07/09/2017 [facility] At risk for falls 03/11/2017 Diagnosis 07/09/2017 [facility] STROKE-LIKE SYMPTOMS Active 02/08/2017 [facility] SLURRED SPEECH/ GAIT ABNORMALITY Active 02/08/2017 [facility] Hematuria Active 04/01/2015 Problem 07/27/2018 [facility] Renal insufficiency Active 04/01/2015 Problem 07/27/2018 [facility] UTI Active 04/01/2015 Problem 07/27/2018 [facility] 569.89 Active 10/29/2014 [facility] Type 2 [...] without complications 09/14/2017 [facility] Hyperlipidemia, unspecified 09/14/2017 [facility] Atherosclerotic heart disease of kashia coronary artery without angina pectoris 09/14/2017 [facility] Personal history of transient ischemic attack , and cerebral infarction without residual deficits 09/14/2017 [facility] Personal history of nicotine dependence 09/14/2017 [facility] director part use of aspirin 09/14/2017 [facility] custodial use of insulin 09/14/2017 [facility] CHF exacerbation Active Problem 07/27/2018 [facility] CKD Active Problem 07/27/2018 [facility] Chest pain Active Problem 07/27/2018 [facility] Febrile illness Active Problem 07/27/2018 [facility] Hyperkalemia Active Problem 07/27/2018 [facility] Hyperlipidemia Problem 10/11/2018 [facility] ACUTE KIDNEY FAILURE, UNSPECIFIED Active [facility] WEAKNESS Active [facility] Medications Medication Details Route Status Patient Instructions Ordering Provider Order Date Source Morphine 2 mg, 1 mL, Route: IVP, Drug form: INJ, Q4H, Dosing Weight 95.597, kg, PRN Pain Score 7-10, Start date: 06/08/17 10:32:00 INTERNET CONSULTANT, Duration: 30 day, Stop date: 07/08/17 10:31:00 CDTNotes: (Same as:MORPhine Sulfate) Inactive 06/08/2017 [facility] Hydralazine 10 mg, 0.5 mL, Route: IVP, Drug form: INJ, Q4H, Dosing Weight 95.597, kg, PRN Elevated BP, Start date: 06/08/17 10:09:00 INTERNET CONSULTANT, Duration: 30 day, Stop date: 07/08/17 10:08:00 CDTNotes: (Same as: Joseph line) Push over 5 minutes Inactive 06/08/2017 [facility] Saline Flush 0.9% 10 ml, Route: IVP, Drug Form: INJ, Dosing Weight 95.597, kg, Q12H, Start date: 06/07/17 21:00:00 INTERNET CONSULTANT, Duration: 30 day, Stop date: 07/07/17 9:00:00 CDTNotes: (Same as: BD Posiflush) No Longer Active 06/08/2017 [facility] atorvastatin 80 mg, 2 tab, Route: PO, Drug form: TAB, Bedtime, Dosing Weight 95.597, kg, Start date: 06/07/17 21:00:00 INTERNET CONSULTANT, Duration: 30 day, Stop date: 07/06/17 21:00:00 CDTNotes: (Same as: Lipitor) No Longer Active 06/08/2017 [facility] Acyclovir 750 mg, Route: IV, Drug form: PDR/INJ, [id number], Dosing Weight 95.597, kg, Start date: 06/07/17 21:00:00 INTERNET CONSULTANT, Duration: 7 day, Stop date: 06/13/17 21:00:00 CSTNotes: (Same as: Zovirax) For adult patients only: Round to nearest 50 mg per Medical Staff approval MEDICATION WASTE Product Size: 500 mg Product Wasted: 250 mg No Longer Active 06/08/2017 [facility] Morphine 4 mg, 1 mL, Route: IVP, Drug form: SOLN, Q4H, Dosing Weight 95.597, kg, PRN Pain Score 7-10, Start date: 06/07/17 20:16:00 INTERNET CONSULTANT, Duration: 30 day, Stop date: 07/07/17 20:15:00 CDTNotes: (Same as:MORPhine Sulfate) No Longer Active 06/08/2017 [facility] heparin 5,000 unit, 1 mL, Route: SUB-Q, Drug form: INJ, Q8H-06, Dosing Weight 95.597, kg, (For patients weighing Notes: porcine heparin No Longer Active 06/07/2017 [facility] valacyclovir 1,000 mg, 2 tab, Route: PO, Drug form: TAB, [id number], Dosing Weight 95.597, kg, Priority: NOW, Start date: 06/07/17 10:47:00 INTERNET CONSULTANT, Duration: 7 day, Stop date: 06/13/17 10:47:00 CSTNotes: (Same As: Valtrex) Inactive 06/07/2017 [facility] Aspirin 300 MG Rectal Suppository 300 mg, 1 supp, Route: SD, Drug form: SUPP, ONCE, Dosing Weight 95.597, kg, Priority: NOW, Start date: 06/07/17 10:40:00 INTERNET CONSULTANT, Stop date: 06/07/17 10:40:00 CSTNotes: Refrigerate. Inactive 06/07/2017 [facility] Aspirin 81 MG Enteric Coated Tablet 81 mg, 1 tab, Route: PO, Drug form: ECTAB, Q24H, Dosing Weight 95.597, kg, Start date: 06/07/17 10:00:00 INTERNET CONSULTANT, Duration: 30 day, Stop date: 07/06/17 10:00:00 CDTNotes: Do not crush or chew. (Same As: Ecotrin) No Longer Active 06/07/2017 [facility] Glucagon 1 mg, Route: IM, Drug form: PDR/INJ, PRN, Dosing Weight 95.597, kg, PRN Blood Glucose Results, Start date: 06/07/17 9:48:00 INTERNET CONSULTANT, Duration: 30 day, Stop date: 07/07/17 10:47:00 CDT No Longer Active 06/07/2017 [facility] Dextrose 50% Syringe 25 gm, 50 mL, Route: IVP, Drug Form: INJ, Dosing Weight 95.597, kg, PRN, PRN Blood Glucose Results, Start date: 06/07/17 9:48:00 INTERNET CONSULTANT, Duration: 30 day, Stop date: 07/07/17 10:47:00 CDT No Longer Active 06/07/2017 [facility] Insulin Lispro 4 unit, 0.04 mL, Route: SUB-Q, Drug form: SOLN, Sliding Scale, Dosing Weight 95.597, kg, PRN Blood Glucose Results, Start date: 06/07/17 9:48:00 INTERNET CONSULTANT, Duration: 30 day, Stop date: 07/07/17 10:47:00 CDTNo naldo: (Same as: Humalog ) Roll in palms of hands gently; Do not shake `vigorously. "Single Patient Use Only " WASTE: F/P - Black; E - [employer] Trash Bin Stable for 28 days at room temperature. Expires in days from Date No Longer Active 06/07/2017 [facility] Saline Flush 0.9% 10 ml, Route: IVP, Drug Form: INJ, Dosing Weight 95.597, kg, PRN, PRN Line Flush, Start date: 06/07/17 9:47:00 INTERNET CONSULTANT, Duration: 30 day, Stop date: 07/07/17 10:46:00 CDTNotes: (Same as: BD Posiflush) No Longer Active 06/07/2017 [facility] Saline Flush 0.9% 10 ml, Route: IVP, Drug Form: INJ, Dosing Weight 87.5, kg, PRN, PRN Line Flush, Start date: 06/07/17 7:07:00 INTERNET CONSULTANT, Duration: 30 day, Stop date: 07/07/17 8:06:00 CDTNotes: (Same as: BD Posiflush) No Longer Active 06/07/2017 [facility] Sodium Chloride 0.9% IV 1,000 mL 1,000 mL, Rate: 125 ml/hr, Infuse over: 8 hr, Route: IV, Dosing Weight 87.5 kg, Total Volume: 1,000, Start date: 06/07/17 7:07:00 INTERNET CONSULTANT, Duration: 30 day, Stop date: 07/07/17 7:06:00 CDT, 2.08, m2 No Longer Active 06/07/2017 [facility] Ondansetron 4 mg, 2 mL, Route: IVP, Drug form: INJ, Q6H, Dosing Weight 87.5, kg, PRN Nausea & Vomiting, Start date: 06/07/17 7:07:00 INTERNET CONSULTANT, Duration: 30 day, Stop date: 07/07/17 7:06:00 CDTNotes: (Same as: Zofran) MEDICATION WASTE Product Size: 4 mg Product Wasted: ___ mg No Longer Active 06/07/2017 [facility] Acetaminophen 650 mg, 2 tab, Route: PO, Drug form: TAB, Q4H, Dosing Weight 87.5, kg, PRN Pain 1-3/Temp > 100.4 F, Start date: 06/07/17 7:07:00 INTERNET CONSULTANT, Duration: 30 day, Stop date: 07/07/17 7:06:00 CDTNotes: Do not ex ceed 4 gm/day. (Same as: Tylenol) No Longer Active 06/07/2017 [facility] Sodium Chloride 0.9% IV 1,000 mL 1,000 mL, Rate: 75 ml/hr, Infuse over: 13.3 hr, Route: IV, Dosing Weight 87.5 kg, Total Volume: 1,000, Start date: 06/07/17 6:02:00 INTERNET CONSULTANT, Duration: 30 day, Stop date: 07/07/17 6:01:00 CDT, 2.08, m2 Inactive 06/07/2017 [facility] Insulin Glargine (Lantus 3ML Pen) 100 Units/1 Ml Inj, 20 Bedtime Active 05/28/2017 [facility] Insulin Glargine (Lantus) 100 Units/Ml Ml, 34 Units Sub-Q Bedtime Active 05/28/2017 [facility] Amoxicillin 875 MG / Clavulanate 125 MG Oral Tablet amoxicillin 875 mg-potassium clavulanate 125 mg tablet Active 05/24/2017 [facility] Azithromycin 250 MG Oral Tablet azithromycin 250 mg tablet Active 05/10/2017 [facility] benzonatate 200 MG Oral Capsule benzonatate 200 mg capsule Take 1 capsule 3 times a day by oral route for 10 days. Active 05/10/2017 [facility] Infinity Meter Kit Infinity Meter Kit Active 05/10/2017 [facility] lancing device lancing device Active 05/10/2017 [facility] 3 ML Insulin Glargine 100 UNT/ML Pen Injector [Lantus] Lantus Solostar U-100 Insulin 100 unit/mL (3 mL) subcutaneous pen 20 units at bedtime Active 05/10/2017 [facility] True Metrix Glucose Test Strip True Metrix Glucose Test Strip use 4 times a day Active 05/10/2017 [facility] Clindamycin 150 MG Oral Capsule clindamycin HCl 150 mg capsule 2 capsules every 6 hrs Active 04/12/2017 [facility] gabapentin 300 MG Oral Capsule gabapentin 300 mg capsule Take 1 capsule twice a day by oral route. Active 04/12/2017 [facility] Lisinopril 20 MG Oral Tablet lisinopril 20 mg tablet Take 1 tablet twice a day by oral route. Active 04/12/2017 [facility] Metolazone 2.5 MG Oral Tablet metolazone 2.5 mg tablet Take 1 tablet twice a day by oral route. Active 04/12/2017 [facility] Regular Insulin, Human 100 UNT/ML Injectable Solution [Novolin R] Novolin R Regular U-100 Insulin 100 unit/mL injection solution Active 04/12/2017 [facility] Pentoxifylline 400 MG Extended Release Oral Tablet pentoxifylline ER 400 mg tablet,extended release Take 1 tablet 3 times a day by oral route. Active 04/12/2017 [facility] Microencapsulated Potassium Chloride 10 MEQ Extended Release Oral Tablet potassium chloride ER 10 mEq tablet,extended release(part/cryst) Take 1 tablet twice a day by oral route. Active 04/12/2017 [facility] Acetaminophen 300 MG / Codeine Phosphate 30 MG Oral Tablet acetaminophen 300 mg-codeine 30 mg tablet Active 03/11/2017 [facility] Cephalexin 500 MG Oral Capsule cephalexin 500 mg capsule Active 03/11/2017 [facility] Ciprofloxacin 500 MG Oral Tablet ciprofloxacin 500 mg tablet Take 1 tablet twice a day by oral route. Active 03/11/2017 [facility] Doxepin Hydrochloride 50 MG/ML Topical Cream doxepin 5 % topical cream Active 03/11/2017 [facility] gabapentin 100 MG Oral Capsule gabapentin 100 mg capsule Active 03/11/2017 [facility] gatifloxacin 5 MG/ML Ophthalmic Solution gatifloxacin 0.5 % eye drops Active 03/11/2017 [facility] Ketorolac Tromethamine 5 MG/ML Ophthalmic Solution ketorolac 0.5 % eye drops Active 03/11/2017 [facility] Levofloxacin 250 MG Oral Tablet levofloxacin 250 mg tablet Active 03/11/2017 [facility] Mupirocin 0.02 MG/MG Topical Ointment mupirocin 2 % topical ointment Active 03/11/2017 [facility] prednisolone acetate 10 MG/ML Ophthalmic Suspension prednisolone acetate 1 % eye drops,suspension Active 03/11/2017 [facility] Sulfamethoxazole 800 MG / Trimethoprim 160 MG Oral Tablet sulfamethoxazole 800 mg-trimethoprim 160 mg tablet Active 03/11/2017 [facility] tramadol hydrochloride 50 MG Oral Tablet tramadol 50 mg tablet Active 03/11/2017 [facility] TRUEplus Lancets 28 gauge TRUEplus Lancets 28 gauge Active 03/11/2017 [facility] Acetaminophen With Codeine (Tylenol With Codeine #3 Tablet) 1 Each Tablet, 300 Mg Oral Every 6 Hours as needed for Pain Active 03/04/2017 [facility] Carvedilol 6.25 Mg Tablet, 3.125 Mg Oral Bedtime Active 03/04/2017 [facility] Ferrous Sulfate 325 Mg Tablet, 325 Mg Oral Daily Active 03/04/2017 [facility] Metolazone 5 Mg Tablet, 2.5 Mg Oral Twice A Day Active 03/04/2017 [facility] Zaroxolyn , 2.5 Mg Oral Twice A Day as needed for Shortness Of Breath Active 03/04/2017 [facility] Lantus 100 units/mL 25 unit, SUB-Q, Bedtime, # 10 mL, 0 Refill(s), Pharmacy: [facility] [id number] Active 02/11/2017 [facility] pneumococcal 13-valent vaccine 0.5 mL, Route: IM, Drug Form: INJ, Daily, Start date: 02/09/17 9:00:00 CDT, Duration: 1 doses or times, Stop date: 02/09/17 9:00:00 CDTNotes: Shake well prior to use (Same as: Prevnar 13) Inactive 02/09/2017 [facility] metolazone 2.5 mg oral tablet 2.5 mg, 1 tab, Route: PO, Drug form: TAB, BID, Dosing Weight 87.5, kg, Start date: 02/09/17 9:00:00 CDT, Duration: 30 day, Stop date: 03/10/17 17:00:00 CSTNotes: (Same as: Zaroxolyn) No Longer Active 02/09/2017 [facility] lisinopril 20 mg, Route: PO, Drug form: TAB, BID, Dosing Weight 87.5, kg, Start date: 02/09/17 9:00:00 CDT, Duration: 30 day, Stop date: 03/10/17 17:00:00 INTERNET CONSULTANT Inactive 02/09/2017 [facility] gabapentin 300 mg oral capsule 300 mg, 1 cap, Route: PO, Drug form: CAP, Q12H, Dosing Weight 87.5, kg, Start date: 02/09/17 9:00:00 CDT, Duration: 30 day, Stop date: 03/10/17 21:00:00 CSTNotes: (Same as: Neurontin) No Longer Active 02/09/2017 [facility] influenza virus vaccine, inactivated 0.5 mL, Route: IM, Drug Form: SUSP, Daily, Start date: 02/09/17 9:00:00 CDT, Duration: 1 doses or times, Stop date: 02/09/17 9:00:00 CDTNotes: (Same as: Fluzone Quadrivalent, Fluarix Quadrivalent) For 3 years of age and older (0.5 mL IM) Shake well before use Inactive 02/09/2017 [facility] Humalog 10 unit, 0.1 mL, Route: [...] days from Date No Longer Active 02/09/2017 [facility] NovoLOG 10 unit, Route: SUB-Q, Drug form: SOLN, TID-Before Meals, Dosing Weight 87.5, kg, Start date: 02/09/17 7:30:00 CDT, Duration: 30 day, Stop date: 03/10/17 16:30:00 INTERNET CONSULTANT Inactive 02/09/2017 [facility] ciprofloxacin 500 mg, 1 tab, Route: PO, Drug form: TAB, [id number], Dosing Weight 87.5, kg, Start date: 02/09/17 1:00:00 CDT, Duration: 30 day, Stop date: 03/10/17 13:00:00 INTERNET CONSULTANT, ABX Indication: Skin/Soft Tissue Infectio nNotes: May interfere w/enteral feedings - Take 1 hr before or 2 hrs after antacids, dairy pdt & minerals. On empty stomach. Inactive 02/09/2017 [facility] Lantus 100 units/mL 25 unit, 0.25 mL, Route: SUB-Q, Drug form: SOLN, Bedtime, Dosing Weight 87.5, kg, Start date: 02/09/17 0:03:00 CDT, Duration: 30 day, Stop date: 03/10/17 21:00:00 CSTNotes: (Same as: Lantus) Do not hold insulin without contacting prescriber WASTE: F/P - Black; E - [employer]ash [employer] "single patient use only" No Longer Active 02/09/2017 [facility] hydrALAZINE 50 mg oral tablet 50 mg, 1 tab, Route: PO, Drug form: TAB, Q8H, Dosing Weight 87.5, kg, Start date: 02/09/17 0:00:00 CDT, Duration: 30 day, Stop date: 03/10/17 16:00:00 INTERNET CONSULTANT Inactive 02/09/2017 [facility] lisinopril 20 mg oral tablet 20 mg=1 tab, PO, BID, 0 Refill(s) No Longer Active 02/09/2017 [facility] metolazone 2.5 mg oral tablet 2.5 mg=1 tab, PO, BID, 0 Refill(s) Active 02/09/2017 [facility] furosemide 40 mg oral tablet 80 mg=2 tab, PO, QAM, 0 Refill(s) No Longer Active 02/09/2017 [facility] gabapentin 300 mg oral capsule 300 mg=1 cap, PO, BID, 0 Refill(s) No Longer Active 02/09/2017 [facility] ciprofloxacin 500 mg oral tablet 500 mg=1 tab, PO, Q12H, 0 Refill(s) No Longer Active 02/09/2017 [facility] hydrALAZINE 50 mg oral tablet 50 mg=1 tab, PO, Q8H, 0 Refill(s) No Longer Active 02/09/2017 [facility] NovoLOG 100 units/mL 10 unit, SUB-Q, TID-Before Meals, # 10 mL, 0 Refill(s) Active 02/09/2017 [facility] potassium chloride 10 mEq oral tablet, extended release 10 mEq=1 tab, PO, BID, 0 Refill(s) No Longer Active 02/09/2017 [facility] Lantus 100 units/mL 34 units, SUB-Q, Bedtime, 0 Refill(s) No Longer Active 02/09/2017 [facility] atorvastatin 80 mg oral tablet 80 mg=1 tab, PO, Daily, 0 Refill(s) Active 02/09/2017 [facility] clindamycin 150 mg, PO, Q6H, 2 capsules, 0 Refill(s) Active 02/09/2017 [facility] aspirin 81 mg tablet, chewable 81 mg=1 tab, CHEW, Daily, 0 Refill(s) Active 02/09/2017 [facility] clindamycin 300 mg, 1 cap, Route: PO, Drug form: CAP, [id number], Dosing Weight 104.545, kg, Start date: 02/08/17 21:00:00 CDT, Duration: 5 day, Stop date: 02/13/17 15:00:00 INTERNET CONSULTANT, ABX Indication: Skin/Soft Tissue Inf ectionNotes: (Same As: Cleocin) No Longer Active 02/09/2017 [facility] Lipitor 80 mg, 2 tab, Route: PO, Drug form: TAB, Bedtime, Dosing Weight 104.545, kg, Start date: 02/08/17 21:00:00 CDT, Duration: 30 day, Stop date: 03/09/17 21:00:00 CSTNotes: (Same as: Lipitor) No Longer Active 02/09/2017 [facility] Saline Flush 0.9% 10 ml, Route: IVP, Drug Form: INJ, Dosing Weight 104.545, kg, Q12H, Start date: 02/08/17 21:00:00 CDT, Duration: 30 day, Stop date: 03/10/17 9:00:00 CSTNotes: (Same as: BD Posiflush) No Longer Active 02/09/2017 [facility] aspirin 81 mg tablet, enteric coated 81 mg, 1 tab, Route: PO, Drug form: ECTAB, Daily, Dosing Weight 104.545, kg, Start date: 02/08/17 21:00:00 CDT, Duration: 30 day, Stop date: 03/10/17 9:00:00 CSTNotes: Do not crush or chew. (Same As: Ecotrin) No Longer Active 02/09/2017 [facility] hydrALAZINE 10 mg, 0.5 mL, Route: IVP, Drug form: INJ, Q6H, Dosing Weight 104.545, kg, PRN Hypertension, Start date: 02/08/17 20:35:00 CDT, Duration: 30 day, Stop date: 03/10/17 20:34:00 INTERNET CONSULTANT, FOR sbp > 180 MMNotes: (Same as: Apresoline) Push over 5 minutes No Longer Active 02/09/2017 [facility] insulin lispro 5 unit, 0.05 mL, [...] days from Date No Longer Active 02/09/2017 [facility] glucagon 1 mg, Route: IM, Drug form: PDR/INJ, PRN, Dosing Weight 104.545, kg, PRN Blood Glucose Results, Start date: 02/08/17 20:35:00 CDT, Duration: 30 day, Stop date: 03/10/17 19:34:00 INTERNET CONSULTANT No Longer Active 02/09/2017 [facility] Dextrose 50% Syringe 25 gm, 50 mL, Route: IVP, Drug Form: INJ, Dosing Weight 104.545, kg, PRN, PRN Blood Glucose Results, Start date: 02/08/17 20:35:00 CDT, Duration: 30 day, Stop date: 03/10/17 19:34:00 INTERNET CONSULTANT No Longer Active 02/09/2017 [facility] Saline Flush 0.9% 10 ml, Route: IVP, Drug Form: INJ, Dosing Weight 104.545, kg, PRN, PRN Line Flush, Start date: 02/08/17 20:26:00 CDT, Duration: 30 day, Stop date: 03/10/17 19:25:00 INTERNET CONSULTANT Inactive 02/09/2017 [facility] ondansetron 4 mg, 2 mL, Route: IVP, Drug form: INJ, Q8H, Dosing Weight 104.545, kg, PRN Nausea & Vomiting, Start date: 02/08/17 20:26:00 CDT, Duration: 30 day, Stop date: 03/10/17 20:25:00 CSTNotes: (Same as: Taylor) MEDICATION WASTE Product Size: 4 mg Product Wasted: ___ mg No Longer Active 02/09/2017 [facility] acetaminophen 650 mg, 2 tab, Route: PO, Drug form: TAB, Q4H, Dosing Weight 104.545, kg, PRN Pain 1-3/Temp > 99.5 F, Start date: 02/08/17 20:26:00 CDT, Duration: 30 day, Stop date: 03/10/17 20:25:00 CSTNotes: Do not exceed 4 gm/day. (Same as: Tylenol) No Longer Active 02/09/2017 [facility] bisacodyl 10 mg, 1 supp, Route: SD, Drug form: SUPP, Daily, Dosing Weight 104.545, kg, PRN Constipation, Start date: 02/08/17 20:26:00 CDT, Duration: 30 day, Stop date: 03/10/17 20:25:00 CSTNotes: (Same As: Dulcolax, Bisco-Lax) No Longer Active 02/09/2017 [facility] Saline Flush 0.9% 10 mL, Route: IVP, Drug Form: INJ, Dosing Weight 104.545, kg, PRN, PRN Line Flush, Start date: 02/08/17 16:21:00 CDT, Duration: 30 day, Stop date: 03/10/17 15:20:00 CSTNotes: (Same as: BD Posiflush) No Longer Active 02/08/2017 [facility] Pentoxifylline 400 Mg Tablet.er, 400 Mg Oral Three Times A Day Active 09/20/2016 [facility] Cephalexin 500 Mg Capsule, 500 Mg Oral Three Times A Day Active 09/05/2016 [facility] Ciprofloxacin Hcl (Cipro) 500 Mg Tablet, 500 Mg Oral Every 12 Hours Active 09/05/2016 [facility] Clindamycin Hcl 150 Mg Capsule, 300 Mg Oral Every 8 Hours Active 09/05/2016 [facility] Sulfamethoxazole/Trimethoprim (Bactrim Ds Tablet) 1 Each Tablet, 1 Tab Oral Twice A Day Active 09/05/2016 [facility] Lisinopril (Zestril*) 20 Mg Tablet, 20 Mg Oral Twice A Day Active 02/04/2016 [facility] Acetaminophen With Codeine (Tylenol With Codeine #3 Tablet) 1 Each Tablet, 300 Mg Oral Every 4 Hours Active 09/05/2015 [facility] Famotidine 20 Mg Tab, 20 Mg Oral Daily Active 09/05/2015 [facility] Levofloxacin (Levaquin) 500 Mg Tablet, 500 Mg Oral Daily Active 09/05/2015 [facility] Meclizine Hcl 12.5 Mg Tablet, 25 Mg Oral Twice A Day Active 09/05/2015 [facility] Cholecalciferol (Vitamin D3) (Vitamin D) 5,000 Unit Tablet, 5000 Units Oral Daily Active 04/01/2015 [facility] Aspirin (Aspir 81) 81 Mg Tablet.dr Daily Active [facility] Atorvastatin Calcium 80 Mg Tablet Daily Active [facility] Carvedilol 3.125 Mg Tablet Bedtime Active [facility] Clopidogrel Bisulfate (Clopidogrel) 75 Mg Tablet Daily Active [facility] Famotidine 20 Mg Tab Twice A Day Active [facility] Furosemide 20 Mg Tablet Twice A Day Active [facility] Hydralazine Hcl 10 Mg Tablet Every 8 Hours Active [facility] Insulin Glargine (Lantus 3ML Pen) 100 Units/1 Ml Inj Bedtime Active [facility] Insulin Regular, Human (Novolin R) 100 Unit/1 Ml Vial Three Times A Day Active [facility] Isosorbide Dinitrate 20 Mg Tablet Daily Active [facility] Tamsulosin Hcl (Flomax*) 0.4 Mg Cap Daily Active [facility] Albuterol 0.83 MG/ML Inhalation Solution albuterol sulfate 2.5 mg/3 mL (0.083 %) solution for nebulization Inhale 3 mL 3 times a day by nebulization route as needed. Active [facility] atorvastatin 80 MG Oral Tablet atorvastatin 80 mg tablet TAKE 1 TABLET BY MOUTH EVERYDAY AT BEDTIME Active [facility] Azithromycin 250 MG Oral Tablet azithromycin 250 mg tablet TAKE 2 TABLETS (500 MG) BY ORAL ROUTE ONCE DAILY FOR 1 DAY THEN 1 TABLET (250 MG) BY ORAL ROUTE ONCE DAILY FOR 4 DAYS Active [facility] carvedilol 3.125 MG Oral Tablet carvedilol 3.125 mg tablet TAKE 1 TABLET BY MOUTH EVERYDAY AT BEDTIME Active [facility] clonidine clonidine as needed Active [facility] clopidogrel 75 MG Oral Tablet clopidogrel 75 mg tablet TAKE 1 TABLET BY MOUTH EVERY DAY Active [facility] Fluconazole 150 MG Oral Tablet fluconazole 150 mg tablet Take 1 tablet every day by oral route for 7 days. Active [facility] Furosemide 40 MG Oral Tablet furosemide 40 mg tablet Take 1 tablet twice a day by oral route as needed. Active [facility] Hydralazine Hydrochloride 50 MG Oral Tablet hydralazine 50 mg tablet TAKE 1 TABLET BY MOUTH EVERY 8 HOURS Active [facility] Isosorbide Dinitrate 30 MG Oral Tablet isosorbide dinitrate 30 mg tablet TAKE 1 TABLET BY MOUTH EVERY DAY Active [facility] 3 ML Insulin Glargine 100 UNT/ML Pen Injector [Lantus] Lantus Solostar U-100 Insulin 100 unit/mL (3 mL) subcutaneous pen Inject 24 units every day by subcutaneous route in the morning. Active [facility] 3 ML insulin detemir 100 UNT/ML Pen Injector [Levemir] Levemir FlexTouch U-100 Insulin 100 unit/mL (3 mL) subcutaneous pen Active [facility] Loratadine 10 MG Oral Tablet loratadine 10 mg tablet TAKE 1 TABLET BY MOUTH EVERY DAY NEEDED Active [facility] Lorazepam 2 MG Oral Tablet lorazepam 2 mg tablet Take 1 tablet every day by oral route as needed. Active [facility] medroxyprogesterone acetate 5 MG Oral Tablet medroxyprogesterone 5 mg tablet TAKE 1 TABLET BY MOUTH EVERY DAY Active [facility] Mupirocin 0.02 MG/MG Topical Ointment mupirocin 2 % topical ointment APPLY A SMALL AMOUNT TO THE AFFECTED AREA BY TOPICAL ROUTE 3 TIMES PER DAY Active [facility] Insulin, Aspart, Human 100 UNT/ML Injectable Solution [NovoLog] Novolog U-100 Insulin aspart 100 unit/mL subcutaneous solution Inject 7 units 3 times a day by subcutaneous route as needed for 30 days. Active [facility] Nystatin 463527 UNT/ML Topical Cream nystatin 100,000 unit/gram topical cream Apply 1 application twice a day by topical route for 15 days. Active [facility] Nystatin 100 UNT/MG Topical Powder nystatin 100,000 unit/gram topical powder APPLY TO THE AFFECTED AREA(S) BY TOPICAL ROUTE 2 TIMES PER DAY Active [facility] OneTouch Delica Lancets 33 gauge OneTouch Delica Lancets 33 gauge Active [facility] OneTouch Verio Mid Control solution OneTouch Verio Mid Control solution Active [facility] OneTouch Verio strips OneTouch Verio strips Active [facility] sevelamer carbonate 800 MG Oral Tablet sevelamer carbonate 800 mg tablet Take 1 tablet 3 times a day by oral route for 90 days. Active [facility] Suprep Bowel Prep Kit 17.5 gram-3.13 gram-1.6 gram oral solution Suprep Bowel Prep Kit 17.5 gram-3.13 gram-1.6 gram oral solution Active [facility] Tamsulosin hydrochloride 0.4 MG Oral Capsule tamsulosin 0.4 mg capsule TAKE 1 CAPSULE(S) EVERY DAY BY ORAL ROUTE. Active [facility] Ultra Thin Lancets 31 gauge Ultra Thin Lancets 31 gauge Take 1 each every day by miscell. route for 90 days. Active [facility] Ergocalciferol 02434 UNT Oral Capsule Vitamin D2 50,000 unit capsule Take 1 capsule every week by oral route. Active [facility] Famotidine 20 MG Oral Tablet famotidine 20 mg tablet Active [facility] Acetaminophen 325 MG / Hydrocodone Bitartrate 5 MG Oral Tablet hydrocodone 5 mg-acetaminophen 325 mg tablet Active [facility] Lorazepam 0.5 MG Oral Tablet lorazepam 0.5 mg tablet Take 2 tablets 3 times a day by oral route. Active [facility] Nystatin 100 UNT/MG Topical Powder [Nystop] Nystop 100,000 unit/gram topical powder APPLY TO THE AFFECTED AREA(S) BY TOPICAL ROUTE 2 TIMES PER DAY Active [facility] rivaroxaban 15 MG Oral Tablet [Xarelto] Xarelto 15 mg tablet Take 1 tablet every day by oral route for 90 days. Active [facility] Acyclovir 800 MG Oral Tablet acyclovir 800 mg tablet Active [facility] Aspirin 81 MG Delayed Release Oral Tablet aspirin 81 mg tablet,delayed release Take 1 tablet every day by oral route. Active [facility] Ciprofloxacin 250 MG Oral Tablet ciprofloxacin 250 mg tablet Active [facility] True Metrix Glucose Test Strip True Metrix Glucose Test Strip Take 1 strip every day by miscell. route. Active [facility] Hydroxyzine Hydrochloride 25 MG Oral Tablet hydroxyzine HCl 25 mg tablet Take 1 tablet twice a day by oral route. Do not use benadryl, loratadine or lorazepam while using this med Active [facility] Allergies, Adverse Reactions, Alerts No Known Medication Allergies Immunizations Immunization Date Given Site Status Last Updated Comments Source pneumococcal polysaccharide PPV23 08/08/2018 [facility] pneumococcal 13-valent vaccine 02/09/[address] [facility] influenza virus vaccine, inactivated 02/09/2017 Right deltoid completed [facility] pneumococcal 13-valent vaccine 02/09/2017 Left deltoid completed [facility] pneumococcal conjugate PCV 13 02/09/2017 [facility] influenza, unspecified formulation 02/09/2017 [facility] Tdap 04/11/2015 [facility] Results Order Name Results Value Reference Range Date Interpretation Comments Source Alkaline phosphatase isoenzyme [Units/volume] in Serum or Plasma alkaline phosphatase 354 40 - 115 09/19/2018 [facility] Alkaline phosphatase isoenzyme [Units/volume] in Serum or Plasma intestinal isoenzymes 19 1 - 24 09/19/2018 [facility] Alkaline phosphatase isoenzyme [Units/volume] in Serum or Plasma bone isoenzymes 22 28 - 66 09/19/2018 [facility] Alkaline phosphatase isoenzyme [Units/volume] in Serum or Plasma liver isoenzymes 59 25 - 69 09/19/2018 [facility] Alkaline phosphatase isoenzyme [Units/volume] in Serum or Plasma placental isoenzymes 0 09/19/2018 [facility] Comprehensive metabolic 1999 panel - Serum or Plasma ALT 17 0 - 55 09/13/2018 [facility] Comprehensive metabolic 1999 panel - Serum or Plasma AST 22 5 - 34 09/13/2018 [facility] Comprehensive metabolic 1999 panel - Serum or Plasma BUN 41.4 8.4 - 25.0 09/13/2018 [facility] Comprehensive metabolic 1999 panel - Serum or Plasma alk phos 382 40 - 150 09/13/2018 [facility] Comprehensive metabolic 1999 panel - Serum or Plasma glucose 256 70 - 99 09/13/2018 [facility] Comprehensive metabolic 1999 panel - Serum or Plasma albumin 3.2 3.4 - 5.1 09/13/2018 [facility] Comprehensive metabolic 1999 panel - Serum or Plasma creatinine 4.39 0.72 - 1.25 09/13/2018 critical [facility] Comprehensive metabolic 1999 panel - Serum or Plasma eGFR non- 13 09/13/2018 abnormal [facility] Comprehensive metabolic 1999 panel - Serum or Plasma total bilirubin 1.7 0.2 - 1.2 09/13/2018 high [facility] Comprehensive metabolic 1999 panel - Serum or Plasma eGFR - 16 09/13/2018 abnormal [facility] Comprehensive metabolic 1999 panel - Serum or Plasma sodium 137 135 - 145 09/13/2018 [facility] Comprehensive metabolic 1999 panel - Serum or Plasma potassium 4.4 3.5 - 5.1 09/13/2018 [facility] Comprehensive metabolic 1999 panel - Serum or Plasma chloride 96 98 - 110 09/13/2018 low [facility] 1999 panel - Serum or Plasma total protein 7.2 6.1 - 8.2 09/13/2018 [facility] Comprehensive metabolic 1999 panel - Serum or Plasma calcium 8.8 9.0 - 10.2 09/13/2018 [facility] metabolic 1999 panel - Serum or Plasma CO2 32.2 20.0 - 32.0 09/13/2018 [facility] Comprehensive metabolic 1999 panel - Serum or Plasma anion gap 9 09/13/2018 [facility] Creatine kinase [Enzymatic activity/volume] in Serum or Plasma creatine kinase (CK) 60 30 - 200 09/13/2018 [facility] Hemoglobin A1c/Hemoglobin.total in Blood Hemoglobin A1c/Hemoglobin.total in Blood 8.3 1.0 - 5.7 09/13/2018 [facility] Hemoglobin A1c/Hemoglobin.total in Blood average blood glucose 192 09/13/2018 [facility] Lipid 1995 panel - Serum or Plasma HDL 40 40 - 0 09/13/2018 [facility] Lipid 1995 panel - Serum or Plasma triglyceride 82 0 - 150 09/13/2018 [facility] Lipid 1995 panel - Serum or Plasma VLDL (calculated) 16 09/13/2018 [facility] Lipid 1996 panel - Serum or Plasma cholesterol/HDL ratio 4.1 09/13/2018 [facility] Lipid 1995 panel - Serum or Plasma non-HDL cholesterol (calculated) 124 0 - 160 09/13/2018 [facility] Lipid 1995 panel - Serum or Plasma cholesterol 164 0 - 200 09/13/2018 [facility] Lipid 1995 panel - Serum or Plasma Cholesterol in LDL [Mass/volume] in Serum or Plasma 108 0 - 130 09/13/2018 [facility] Thyrotropin [Units/volume] in Serum or Plasma TSH 2.514 0.350 - 4.940 09/13/2018 [facility] Hemoglobin A1c/Hemoglobin.total in Blood A1C w/EAG 12.6 1.0 - 5.7 03/29/2018 [facility] Hemoglobin A1c/Hemoglobin.total in Blood average blood glucose 315 03/29/2018 [facility] Comprehensive metabolic 1999 panel - Serum or Plasma ALT 16 0 - 55 03/29/2018 [facility] Comprehensive metabolic 1999 panel - Serum or Plasma AST 21 5 - 34 03/29/2018 [facility] Comprehensive metabolic 1999 panel - Serum or Plasma BUN 37.9 8.4 - 25.7 03/29/2018 [facility] Comprehensive metabolic 1999 panel - Serum or Plasma alk phos 371 40 - 150 03/29/2018 [facility] Comprehensive metabolic 1999 panel - Serum or Plasma glucose 306 70 - 99 03/29/2018 [facility] Comprehensive metabolic 1999 panel - Serum or Plasma albumin 3.1 3.5 - 5.0 03/29/2018 [facility] Comprehensive metabolic 1999 panel - Serum or Plasma creatinine 3.72 0.72 - 1.25 03/29/2018 [facility] Comprehensive metabolic 1999 panel - Serum or Plasma eGFR non- 16 03/29/2018 abnormal [facility] Comprehensive metabolic 1999 panel - Serum or Plasma total bilirubin 1.2 0.2 - 1.2 03/29/2018 [facility] Comprehensive metabolic 1999 panel - Serum or Plasma eGFR - 20 03/29/2018 abnormal [facility] Comprehensive metabolic 1999 panel - Serum or Plasma sodium 135 136 - 145 03/29/2018 [facility] Comprehensive metabolic 1999 panel - Serum or Plasma potassium 4.8 3.5 - 5.1 03/29/2018 [facility] Comprehensive metabolic 1999 panel - Serum or Plasma chloride 95 98 - 107 03/29/2018 [facility] Comprehensive metabolic 1999 panel - Serum or Plasma total protein 6.8 6.4 - 8.3 03/29/2018 [facility] Comprehensive metabolic 1999 panel - Serum or Plasma calcium 8.5 8.8 - 10.0 03/29/2018 [facility] Comprehensive metabolic 1999 panel - Serum or Plasma CO2 32.9 23.0 - 31.0 03/29/2018 [facility] Comprehensive metabolic 1999 panel - Serum or Plasma anion gap 7 03/29/2018 [facility] PSA, total 0.49 0.00 - 4.00 03/29/2018 [facility] CHEM PANEL Magnesium Lvl 2.4 [...] should be multiplied by the estimated BMI. [facility] CHEM PANEL AST 15 0 - 37 06/08/2017 [facility] CHEM PANEL Alk Phos 161 39 - 136 06/08/2017 [facility] CHEM PANEL ALT 17 0 - 65 06/08/2017 [facility] CHEM PANEL Albumin Lvl 2.4 3.5 - 5.0 06/08/2017 [facility] CHEM PANEL Bili Total 0.6 0.2 - 1.3 06/08/2017 [facility] CHEM PANEL Calcium Lvl 7.9 8.5 - 10.5 06/08/2017 [facility] CHEM PANEL CO2 23 24 - 32 06/08/2017 [facility] CHEM PANEL Total Protein 5.9 6.4 - 8.4 06/08/2017 [facility] CHEM PANEL Creatinine Lvl 3.00 0.50 - 1.40 06/08/2017 [facility] CHEM PANEL BUN 59 7 - [...] PANEL AGAP 14.6 10.0 - 20.0 06/08/2017 [facility] CHEM PANEL A/G Ratio 0.7 0.7 - 1.6 06/08/2017 [facility] HEMATOLOGY Lymphocytes 19.4 20.0 - 40.0 06/08/2017 [facility] HEMATOLOGY Monocytes 10.7 2.0 - 12.0 06/08/2017 [facility] HEMATOLOGY Segs 65.2 45.0 - 75.0 06/08/2017 [facility] HEMATOLOGY Eosinophils # 0.2 0.0 - 0.5 06/08/2017 [facility] HEMATOLOGY Monocytes # 0.6 0.0 - 0.8 06/08/2017 [facility] Lymphocytes # 1.1 1.0 - 5.5 06/08/2017 [facility] HEMATOLOGY Basophils 0.8 0.0 - 1.0 06/08/2017 [facility] Eosinophils 3.9 0.0 - 4.0 06/08/2017 [facility] Segs-Bands # 3.6 1.5 - 8.1 06/08/2017 [facility] MCV 95.2 80.0 - 94.0 06/08/2017 [facility] Hct 26.6 42.0 - 54.0 06/08/2017 [facility] MPV 9.2 7.4 - 10.4 06/08/2017 [facility] Hgb 8.8 14.0 - 18.0 06/08/2017 [facility] MCH 31.5 27.0 - 31.0 06/08/2017 [facility] RBC 2.80 4.70 - 6.10 06/08/2017 [facility] MCHC 33.1 32.0 - 36.0 06/08/2017 [facility] Platelet 151 133 - 450 06/08/2017 [facility] RDW 16.7 11.5 - 14.5 06/08/2017 [facility] WBC 5.6 3.7 - 10.4 06/08/2017 [facility] URINE AND STOOL UA Color Ltyellow 06/07/2017 [facility] URINE AND STOOL UA Urobilinogen <=1.0 mg/dL 0.1 - 1.0 06/07/2017 [facility] URINE AND STOOL UA Sq Epi None Seen 06/07/2017 [facility] URINE AND STOOL UA RBC 6 0 - 2 06/07/2017 [facility] URINE AND STOOL UA Mucus Few [...] UA Ketones Negative mg/dL Negative mg/dL 06/07/2017 [facility] URINE AND STOOL UA RBC 3 0 - 2 06/07/2017 [facility] URINE AND STOOL UA Amorph Columba Occasional /HPF None Seen /HPF 06/07/2017 [facility] URINE AND STOOL UA Mucus Few /LPF None Seen /LPF 06/07/2017 [facility] URINE AND STOOL UA Bacteria Few /HPF None Seen /HPF 06/07/2017 [facility] URINE AND STOOL UA WBC 2 0 - 5 06/07/2017 [facility] URINE AND STOOL UA Color Ltyellow 06/07/2017 [facility] URINE AND STOOL UA Sq Epi None Seen 06/07/2017 [facility] URINE AND STOOL UA Turbidity Slight *ABN* (06/07/17 3:27 AM) Clear 06/07/2017 [facility] CHEM PANEL Ammonia 37.0 <=45.0 uMol/L 06/07/2017 [facility] CHEM PANEL Lactic Acid Lvl 0.8 0.5 - 2.2 06/07/2017 [facility] CARDIAC ENZYMES CK MB Index 3.2 0.0 - 2.5 06/07/2017 [facility] CARDIAC ENZYMES Troponin-I 0.03 0.00 - 0.40 06/07/2017 [facility] CARDIAC ENZYMES Total CK 112 12 - 191 06/07/2017 [facility] CARDIAC ENZYMES CK MB 3.6 0.5 - 3.6 06/07/2017 [facility] CHEM PANEL Phosphorus 3.3 2.5 - 4.5 06/07/2017 [facility] CHEM PANEL Magnesium Lvl 2.4 1.8 - 2.4 06/07/2017 [facility] ELECTROLYTES AGAP 15.6 10.0 - 20.0 06/07/2017 [facility] ELECTROLYTES Bili Total 0.6 0.2 - 1.3 06/07/2017 [facility] ELECTROLYTES Alk Phos 186 39 - 136 06/07/2017 [facility] ELECTROLYTES B/C Ratio 20 6 - 25 06/07/2017 [facility] ELECTROLYTES A/G Ratio 0.6 0.7 - 1.6 06/07/2017 [facility] ELECTROLYTES Potassium Lvl 4.6 3.5 - 5.1 06/07/2017 [facility] ELECTROLYTES Sodium Lvl 140 135 - 145 06/07/2017 [facility] ELECTROLYTES Globulin 4.4 2.7 - 4.2 06/07/2017 [facility] ELECTROLYTES AST 19 0 - 37 06/07/2017 [facility] ELECTROLYTES Chloride Lvl 107 95 - 109 06/07/2017 [facility] ELECTROLYTES Calcium Lvl 7.8 8.5 - 10.5 06/07/2017 [facility] ELECTROLYTES CO2 22 24 - 32 06/07/2017 [facility] ELECTROLYTES ALT 22 0 - 65 06/07/2017 [facility] ELECTROLYTES Albumin Lvl 2.5 3.5 - 5.0 06/07/2017 [facility] ELECTROLYTES Total Protein 6.9 6.4 - 8.4 06/07/2017 [facility] ELECTROLYTES eGFR 19 06/07/2017 Result Comment: [...] should be multiplied by the estimated BMI. [facility] ELECTROLYTES Creatinine Lvl 3.14 0.50 - 1.40 06/07/2017 [facility] ELECTROLYTES BUN 63 7 - 22 06/07/2017 [facility] ELECTROLYTES Glucose Lvl 246 70 - 99 06/07/2017 [facility] HEMATOLOGY Segs-Bands # 7.8 1.5 - 8.1 06/07/2017 [facility] HEMATOLOGY Monocytes # 0.7 0.0 - 0.8 06/07/2017 [facility] HEMATOLOGY Lymphocytes 8.0 20.0 - 40.0 06/07/2017 [facility] HEMATOLOGY Lymphocytes # 0.7 1.0 - 5.5 06/07/2017 [facility] HEMATOLOGY Monocytes 7.3 2.0 - 12.0 06/07/2017 [facility] HEMATOLOGY Eosinophils 0.5 0.0 - 4.0 06/07/2017 [facility] Basophils 0.5 0.0 - 1.0 06/07/2017 [facility] HEMATOLOGY Segs 83.7 45.0 - 75.0 06/07/2017 [facility] MPV 9.0 7.4 - 10.4 06/07/2017 [facility] MCH 31.0 27.0 - 31.0 06/07/2017 [facility] HEMATOLOGY Hct 28.5 42.0 - 54.0 06/07/2017 [facility] HEMATOLOGY MCV 96.4 80.0 - 94.0 06/07/2017 [facility] RBC 2.96 4.70 - 6.10 06/07/2017 [facility] HEMATOLOGY Hgb 9.2 14.0 - 18.0 06/07/2017 [facility] HEMATOLOGY WBC 9.3 3.7 - 10.4 06/07/2017 [facility] HEMATOLOGY RDW 16.3 11.5 - 14.5 06/07/2017 [facility] HEMATOLOGY Platelet 137 133 - 450 06/07/2017 [facility] MCHC 32.2 32.0 - 36.0 06/07/2017 [facility] HEMATOLOGY INR 1.19 0.85 - 1.17 06/07/2017 [facility] PT 15.2 12.0 - 14.7 06/07/2017 [facility] PTT 47.7 22.9 - 35.8 06/07/2017 [facility] 25-Hydroxyvitamin D [Mass/volume] in Serum or Plasma vitamin D,25-oh,total,ia 14 30 - 100 03/15/2017 [facility] Comprehensive metabolic 1999 panel - Serum or Plasma glucose 512 65 - 99 03/13/2017 [facility] Comprehensive metabolic 1999 panel - Serum or Plasma urea nitrogen (BUN) 53 7 - 25 03/13/2017 [facility] Comprehensive metabolic 1999 panel - Serum or Plasma creatinine 2.38 0.70 - 1.25 03/13/2017 [facility] Comprehensive metabolic 1999 panel - Serum or Plasma eGFR non-afr. syrian 27 > or=60 03/13/2017 [facility] Comprehensive metabolic 1999 panel - Serum or Plasma eGFR 31 > or=60 03/13/2017 [facility] Comprehensive metabolic 1999 panel - Serum or Plasma BUN/creatinine ratio 22 6 - 22 03/13/[address] [facility] Comprehensive metabolic 1999 panel - Serum or Plasma sodium 131 135 - 146 03/13/2017 [facility] Comprehensive metabolic 1999 panel - Serum or Plasma potassium 4.8 3.5 - 5.3 03/13/[address] [facility] Comprehensive metabolic 1999 panel - Serum or Plasma chloride 95 98 - 110 03/13/2017 [facility] Comprehensive metabolic 1999 panel - Serum or Plasma carbon dioxide 26 20 - 31 03/13/[address] [facility] Comprehensive metabolic 1999 panel - Serum or Plasma calcium 8.9 8.6 - 10.3 03/13/[address] [facility] Comprehensive metabolic 1999 panel - Serum or Plasma protein, total 6.6 6.1 - 8.1 03/13/[address] [facility] Comprehensive metabolic 1999 panel - Serum or Plasma albumin 3.2 3.6 - 5.1 03/13/2017 [facility] Comprehensive metabolic 1999 panel - Serum or Plasma globulin 3.4 1.9 - 3.7 03/13/[address] [facility] Comprehensive metabolic 1999 panel - Serum or Plasma albumin/globulin ratio 0.9 1.0 - 2.5 03/13/2017 [facility] Comprehensive metabolic 1999 panel - Serum or Plasma bilirubin, total 0.5 0.2 - 1.2 03/13/[address] [facility] Comprehensive metabolic 1999 panel - Serum or Plasma alkaline phosphatase 146 40 - 115 03/13/2017 [facility] Comprehensive metabolic 1999 panel - Serum or Plasma AST 11 10 - 35 03/13/[address] [facility] Comprehensive metabolic 1999 panel - Serum or Plasma ALT 9 9 - 46 03/13/[address] [facility] Lipid 1995 panel - Serum or Plasma cholesterol, total 268 <200 03/13/2017 [facility] Lipid 1995 panel - Serum or Plasma HDL cholesterol 50 >40 03/13/[address] [facility] Lipid 1995 panel - Serum or Plasma triglycerides 238 <150 03/13/2017 [facility] Lipid 1995 panel - Serum or Plasma LDL-cholesterol 178 03/13/2017 [facility] Lipid 1995 panel - Serum or Plasma chol/HDLC ratio 5.4 <5.0 03/13/2017 [facility] Lipid 1995 panel - Serum or Plasma non HDL cholesterol 218 <130 03/13/2017 [facility] Magnesium [Mass/volume] in Serum or Plasma magnesium 2.2 1.5 - 2.5 03/13/[address] [facility] Phosphate [Mass/volume] in Serum or Plasma phosphate ( phosphorus) 4.6 2.1 - 4.3 03/13/2017 [facility] Thyrotropin [Units/volume] in Serum or Plasma TSH 1.83 0.40 - 4.50 03/13/[address] [facility] Hemoglobin A1c/Hemoglobin.total in Blood hemoglobin A1C >14.0 <5.7 03/13/2017 [facility] Erythrocyte sedimentation rate by Westergren method sed rate by modified westergren 92 < or=20 03/12/2017 [facility] CBC W Auto Differential panel - Blood white blood cell count 7.5 3.8 - 10.8 03/12/[address] [facility] CBC W Auto Differential panel - Blood red blood cell count 4.35 4.20 - 5.80 03/12/[address] [facility] CBC W Auto Differential panel - Blood hemoglobin 12.9 13.2 - 17.1 03/12/2017 [facility] CBC W Auto Differential panel - Blood hematocrit 39.9 38.5 - 50.0 03/12/[address] [facility] CBC W Auto Differential panel - Blood MCV 91.7 80.0 - 100.0 03/12/[address] [facility] CBC W Auto Differential panel - Blood MCH 29.7 27.0 - 33.0 03/12/[address] [facility] CBC W Auto Differential panel - Blood MCHC 32.3 32.0 - 36.0 03/12/[address] [facility] CBC W Auto Differential panel - Blood RDW 12.2 11.0 - 15.0 03/12/[address] [facility] CBC W Auto Differential panel - Blood platelet count 281 140 - 400 03/12/[address] [facility] CBC W Auto Differential panel - Blood MPV 11.0 7.5 - 12.5 03/12/[address] [facility] CBC W Auto Differential panel - Blood absolute neutrophils 5730 1500 - 7800 03/12/[address] [facility] CBC W Auto Differential panel - Blood absolute lymphocytes 1013 850 - 3900 03/12/[address] [facility] CBC W Auto Differential panel - Blood absolute monocytes 578 200 - 950 03/12/[address] [facility] CBC W Auto Differential panel - Blood absolute eosinophils 98 15 - 500 03/12/[address] [facility] CBC W Auto Differential panel - Blood absolute basophils 83 0 - 200 03/12/[address] [facility] CBC W Auto Differential panel - Blood neutrophils 76.4 03/12/[address] [facility] CBC W Auto Differential panel - Blood lymphocytes 13.5 03/12/[address] [facility] CBC W Auto Differential panel - Blood monocytes 7.7 03/12/[address] [facility] CBC W Auto Differential panel - Blood eosinophils 1.3 03/12/2017 normal [facility] CBC W Auto Differential panel - Blood basophils 1.1 03/12/2017 normal [facility] CHEM PANEL Calcium Lvl 7.6 8.5 - 10.5 02/10/2017 [facility] CHEM PANEL CO2 28 24 - 32 02/10/2017 [facility] CHEM PANEL AGAP 10.5 10.0 - 20.0 02/10/2017 [facility] CHEM PANEL eGFR 30 02/10/2017 Result [...] should be multiplied by the estimated BMI. [facility] CHEM PANEL Potassium Lvl 3.5 3.5 - 5.1 02/10/2017 [facility] CHEM PANEL Chloride Lvl 106 95 - 109 02/10/2017 [facility] CHEM PANEL Sodium Lvl 141 135 - 145 02/10/2017 [facility] CHEM PANEL Creatinine Lvl 2.20 0.50 - 1.40 02/10/2017 [facility] CHEM PANEL BUN 38 7 - 22 02/10/2017 [facility] CHEM PANEL Glucose Lvl 85 70 - 99 02/10/2017 [facility] HEMATOLOGY MPV 8.0 7.4 - 10.4 02/10/2017 [facility] HEMATOLOGY Platelet 224 133 - 450 02/10/2017 [facility] HEMATOLOGY RDW 13.6 11.5 - 14.5 02/10/2017 [facility] HEMATOLOGY MCV 93.3 80.0 - 94.0 02/10/2017 [facility] HEMATOLOGY Hct 32.3 42.0 - 54.0 02/10/2017 [facility] HEMATOLOGY MCHC 34.0 32.0 - 36.0 [...] HEMATOLOGY Segs 62.8 45.0 - 75.0 02/10/2017 [facility] CHEM PANEL Bili Total 0.6 0.2 - 1.3 02/09/2017 [facility] CHEM PANEL Alk Phos 121 39 - 136 02/09/2017 [facility] CHEM PANEL Calcium Lvl 8.0 8.5 [...] Creatinine Lvl 2.33 0.50 - 1.40 02/09/2017 [facility] CHEM PANEL Sodium Lvl 140 135 - 145 02/09/2017 [facility] CHEM PANEL BUN 32 7 - 22 02/09/2017 [facility] CHEM PANEL AGAP 12.8 10.0 - 20.0 02/09/2017 [facility] CHEM PANEL Chloride Lvl 104 95 - 109 02/09/2017 [facility] CHEM PANEL CO2 27 24 - 32 02/09/2017 [facility] CHEM PANEL Glucose Lvl 262 70 - 99 02/09/2017 [facility] CHEM PANEL eGFR 28 02/09/2017 Result [...] should be multiplied by the estimated BMI. [facility] CARDIAC ENZYMES CK MB Index 3.8 0.0 - 2.5 02/08/2017 [facility] CARDIAC ENZYMES Troponin-I 0.05 0.00 - 0.40 02/08/2017 [facility] CARDIAC ENZYMES CK MB 3.1 0.5 - 3.6 02/08/2017 [facility] CARDIAC ENZYMES Total CK 81 12 - 191 02/08/2017 [facility] ELECTROLYTES AGAP 9.3 10.0 - 20.0 02/08/2017 [facility] ELECTROLYTES eGFR 26 02/08/2017 Result Comment: [...] should be multiplied by the estimated BMI. [facility] ELECTROLYTES CO2 29 24 - 32 02/08/2017 [facility] ELECTROLYTES Chloride Lvl 105 95 - 109 02/08/2017 [facility] ELECTROLYTES Calcium Lvl 8.2 8.5 - 10.5 02/08/2017 [facility] ELECTROLYTES Glucose Lvl 78 70 - 99 02/08/2017 [facility] ELECTROLYTES BUN 29 7 - 22 02/08/2017 [facility] ELECTROLYTES Creatinine Lvl 2.50 0.50 - 1.40 02/08/2017 [facility] ELECTROLYTES Sodium Lvl 140 135 - 145 02/08/2017 [facility] ELECTROLYTES Potassium Lvl 3.3 3.5 - 5.1 02/08/2017 [facility] HEMATOLOGY Basophils 0.6 0.0 - 1.0 02/08/2017 [facility] HEMATOLOGY Eosinophils 0.2 0.0 - 4.0 02/08/2017 [facility] HEMATOLOGY Lymphocytes # 0.7 1.0 - 5.5 02/08/2017 [facility] HEMATOLOGY Segs-Bands # 8.2 1.5 - 8.1 02/08/2017 [facility] HEMATOLOGY Basophils # 0.1 0.0 - 0.2 02/08/2017 [facility] HEMATOLOGY Monocytes # 0.5 0.0 - 0.8 02/08/2017 [facility] HEMATOLOGY Lymphocytes 7.0 20.0 - 40.0 02/08/2017 [facility] HEMATOLOGY Segs 86.6 45.0 - 75.0 02/08/2017 [facility] HEMATOLOGY Monocytes 5.6 2.0 - 12.0 02/08/2017 [facility] HEMATOLOGY PTT 37.1 22.9 - 35.8 02/08/2017 [facility] HEMATOLOGY PT 13.3 12.0 - 14.7 02/08/2017 [facility] HEMATOLOGY INR 1.01 0.85 - 1.17 02/08/2017 [facility] HEMATOLOGY MCHC 33.2 32.0 - 36.0 02/08/2017 [facility] HEMATOLOGY RBC 3.83 4.70 - 6.10 02/08/2017 [facility] HEMATOLOGY WBC 9.4 3.7 - 10.4 02/08/2017 [facility] Hgb 11.9 14.0 - 18.0 02/08/2017 [facility] Platelet 251 133 - 450 02/08/2017 [facility] RDW 13.6 11.5 - 14.5 02/08/2017 [facility] MPV 8.4 7.4 - 10.4 02/08/2017 [facility] MCV 93.7 80.0 - 94.0 02/08/2017 [facility] Hct 35.9 42.0 - 54.0 02/08/2017 [facility] MCH 31.1 27.0 - 31.0 02/08/2017 [facility] LIPIDS Chol 303 <=199 mg/dL 02/08/2017 [facility] LIPIDS HDL 56 >=61 mg/dL 02/08/2017 [facility] LIPIDS VLDL 27 02/08/2017 [facility] LIPIDS LDL (Calculated) 220 <=99 mg/dL 02/08/2017 [facility] LIPIDS Trig 133 <=149 mg/dL 02/08/2017 [facility] LIPIDS CHD Risk 5.41 4.00 - 7.30 02/08/2017 [facility] SPECIAL CHEMISTRY Hgb A1C 12.9 <=5.6 % 02/08/2017 [facility] Pathology Reports No Data Provided for [...] speech pathology report for further details. SL: [id number] 06/08/2017 [facility] Brain wo contrast CT Clinical Indication: [...] chronic microvascular ischemic changes. SL: KPATEL-M 06/07/2017 [facility] Spine cervical wo contrast CT Clinical [...] acute fractures or subluxations. SL: KPATEL-M 06/07/2017 [facility] Pelvis AP DX Clinical Indication: Status [...] within the visualized spine. SL: UMMTEL-M 06/07/2017 [facility] Chest 1view DX EXAM: Chest x-ray [...] evidence of pulmonary edema. SL: UKJOHN-Emilie 06/07/2017 [facility] Retroperitoneal Complete US Clinical Indication: - [...] 1. Unremarkable renal U/S SL: SROSENBLUM-PC 02/09/2017 [facility] Esophagus BA swallow function video DX Patient Name: EDWIGE HORVATH : 1950; Age: 66 years Male MR: [id number] Study: Esophagus BA swallow function video DX [...] penetration with deep penetration on partial volumes. [place] consistency barium: Flash penetration. Pudding coated barium: No aspiration or any significant laryngeal penetration. Barium with cracker preparation: No aspiration or any significant laryngeal penetration. SL: [id number] 02/09/2017 [facility] contrast MRI Clinical Indication: Slurred speech and [...] disease changes/small vessel disease. SL: KPATEL-M 02/09/2017 [facility] contrast MRA Clinical Indication: Patient complained of slurred speech and unsteady gait since this morning. Stroke Comparison: CT head 02/08/2017. Technique: Magnetic resonance angiography of the [place] of [place] was performed without contrast. 3D [...] hypoplasia or severe stenosis. SL: KPANESS 02/09/2017 [facility] Neck wo contrast MRA Clinical Indication: [...] or left vertebral arteries. SL: KPANESS 02/09/2017 [facility] Brain contrast CT Study: Brain wo [...] skull is intact. Mild left frontal and sgmb-oc-[id number] bilateral ethmoid air cell opacification is present. [...] would be recommended for further assessment. SL: [id number] 02/08/2017 [facility] Brain wo contrast CT I have been advised from the scanning technologist from [facility] that the incorrect name was applied to this examination and should be disregarded. A report will be faxed to the [facility] Emergency Department. Clinical Indication: ct rya969.80 - right sided drift, slurred speech, woke [...] hemorrhage. Report will be faxed to the [facility] Emergency Department following the dictation at 5:23 PM SL: [id number] 02/08/2017 [facility] Chest 1view DX Chest 1view DX [...] of acute cardiopulmonary disease. SL: SSMILEY-MEGA 02/08/2017 [facility] Consultation Notes No Data Provided for This Section Discharge Summaries No Data Provided for This Section History and Physicals No Data Provided for This Section Vital Signs Vital Sign Value Date Comments Source Diastolic (mm Hg) 50 10/10/2018 [facility] Height 69 10/10/2018 [facility] Systolic (mm Hg) 110 10/10/2018 [facility] Weight 188 10/10/2018 [facility] Diastolic (mm Hg) 68 09/12/2018 [...] [facility] Diastolic (mm Hg) 91 06/09/2017 [facility] Temperature Oral (F) 98.3 F 06/09/2017 [facility] Systolic (mm Hg) 173 06/08/2017 [facility] Diastolic (mm Hg) 82 06/08/2017 [facility] Heart Rate 60 06/08/2017 [facility] Respitory Rate 16 06/08/2017 [facility] Temperature Oral (F) 98.1 F 06/08/2017 [facility] Heart Rate 60 06/08/2017 [facility] Respitory Rate 16 06/08/2017 [facility] Systolic (mm Hg) 173 06/08/2017 [facility] Diastolic (mm Hg) 82 06/08/2017 [facility] Temperature Oral (F) 98.1 F 06/08/2017 [...] [facility] Systolic (mm Hg) 153 02/11/2017 [facility] Diastolic (mm Hg) 77 02/11/2017 [facility] Temperature Oral (F) 98.0 F 02/11/2017 [facility] Respitory Rate 16 02/11/2017 [facility] Heart Rate 60 02/11/2017 [facility] Respitory Rate 16 02/11/2017 [facility] Systolic (mm Hg) 157 02/11/2017 [facility] Diastolic (mm Hg) 80 02/11/2017 [facility] Heart Rate 57 02/11/2017 [facility] Temperature Oral (F) 98.1 F 02/11/2017 [facility] Heart Rate 58 02/11/2017 [facility] Respitory Rate 16 02/11/2017 [facility] Temperature Oral (F) 97.8 F 02/11/2017 [facility] Systolic (mm Hg) 121 02/11/2017 [facility] Diastolic (mm Hg) 61 02/11/2017 [facility] BMI Calculated 28.49 02/09/2017 [facility] Height 175.26 cm 02/09/2017 [facility] Weight 87.5 02/09/2017 [facility] BMI Calculated 33.07 02/08/2017 [facility] Weight 104.545 02/08/2017 [facility] Height 177.8 cm 02/08/2017 [facility] Encounters Location Location Details Encounter Type Encounter Number Reason For Visit Attending Provider ADM Date DC Date Status Source [facility] Observation [id number] Sanya Kumar 02/08/2017 02/11/2017 [facility] Practice - Care Management Анна Novoa: [address], [address], [place] [address], Ph. [id number] Анна Novoa 03/08/2017 [facility] Ramonita Allan MD: [address] [place] [address], Ph. [id number] Ramonita Allan 03/11/2017 [facility] Ramonita Allan MD: [address] [place] [address], Ph. [id number] Ramonita Allan 03/22/2017 [facility] Practice - Care Management [facility]: [address], [address], [place] [address], Ph. [id number] [facility] 04/06/2017 [facility] Ramonita Allan MD: [address] [place] [address], Ph. [id number] Ramonita Allan 04/12/2017 [facility] [address], [address], [place] [address], Ph. [id number] [facility] 04/21/2017 [facility] Practice - Care Management Анна Novoa: [address], [address], [place] [address], Ph. [id number] Анна Novoa 05/02/2017 [facility] Ramonita Allan MD: [facility] [place] [address], Ph. [id number] Ramonita Allan 05/10/2017 [facility] - Care Management Анна Novoa: [address], [address], [place] [address], Ph. [id number] Анна Novoa 05/11/2017 [facility] Joseph Miller MD: [address] [place] [address], Ph. [id number] Joseph Milelr 05/18/2017 [facility] Ramonita Allan MD: [facility] [place] [address], Ph. [id number] Ramonita Allan 05/24/2017 [facility] - Care Management Анна Novoa: [address], [address], [place] [address], Ph. [id number] Анна Novoa 05/25/2017 [facility] - Care Management Анна Novoa: [address], [address], [place] [address], Ph. [id number] Анна Novoa 06/01/2017 [facility] Observation [id number] April Arthur 06/07/2017 06/09/2017 [facility] Practice - Care Management Анна Novoa: [address], [address], [place] [address], Ph. [id number] Анна Novoa 06/15/2017 [facility] Ramonita Allan MD: [address] [place] [address], Ph. [id number] Ramonita Allan 03/28/2018 [facility] Ramonita Allan MD: [address] [place] [address], Ph. [id number] Ramonita Allan 04/25/2018 [facility] Ramonita Allan MD: [address] [place] [address], Ph. [id number] Ramonita Allan 04/25/2018 [facility] Ramonita Allan MD: [address] [place] [address], Ph. [id number] Ramonita Allan 04/25/2018 [facility] MD: [address] [place] [address], Ph. [id number] Ramonita Allan 05/23/2018 [facility] Ramonita Allan MD: [facility] [place] [address], Ph. [id number] Ramonita Allan 05/23/2018 [facility] Ramonita Allan MD: [address] [place] [address], Ph. [id number] Ramonita Allan 07/11/2018 [facility] Ramonita Allan MD: [address] [place] [address], Ph. [id number] Ramonitaconsuelo Allan 07/11/2018 [facility] Departed Emergency Room [id number] EDUARDO DEL CID MD 07/26/2018 07/26/2018 [facility] Ramonita Allan MD: [address] [place] [address], Ph. [id number] Ramonita Allan 08/08/2018 [facility] Ramonita Allan MD: [address] [place] [address], Ph. [id number] Ramonita Allan 08/08/2018 [facility] Ramonita Allan MD: [address] [place] [address], Ph. [id number] Ramonita Allan 09/12/2018 [facility] Ramonita Allan MD: [address] [place] [address], Ph. [id number] Ramonita Allan 09/12/2018 [facility] Ramonita Allan MD: [address] [place] [address], Ph. [id number] Ramonitaconsuelo Allan 10/10/2018 [facility] Procedures Procedure Code Date Perfomer Comments Source Pacemaker 07/07/2018 [facility] Fistula Cannulation Set, Ea [id number] 06/09/2017 [facility] Other 04/11/2017 [facility] Amputation 04/11/2005 [facility] Stent placement [id number] [facility] Assessment and Plan Assessment and Plan [...] [place] Extracted from:Title: Clinical Document Author: Sanya Kmuar MD Date: 02/11/17 Date of admission: 01/29/2017 [...] Date: 02/11/17 NEUROLOGY Progress Note - Daily [facility] Completed: Feb, 09:03 by Maria Isabel Crespo [...] intact ftn, hts Abnormal movements: none Coordination [id number]-sm-ssbs is intact Gait patient stood up and [...] mg PO Q4H 02/08/17 bisacodyl 10 mg SD Daily 02/08/17 glucagon 1 mg IM PRN [...] expect 1 midnight stay for now 02/11/2017 [facility] Plan of Care Plan of Care Date Source Discharge Date 07/26/18 8:29pm Disposition LEFT AFTER MEDICAL SCREENING Condition at Discharge Other Forms Provided Work/School Excuse Prescriptions See Medication Section 07/26/2018 [facility] Social History Social History Date Source [...] 05/27/2017 4:15pm Not Applicable Not Applicable 07/26/2018 [facility] Social History TypeResponse Smoking Status Never smoker; Previous treatment: None; Ready to change: No; Concerns about tobacco use in household: No; Exposure to Tobacco Smoke None; Cigarette Smoking Last 365 Days No; Reg Smoking Cessation Counseling No entered on: 06/07/17 06/07/2017 [facility] Smoking Status Former Smoker (1 PPW) 03/11/2017 [facility] Family History No Data Provided for This Section Advance Directives Order Name Results Value Date Source Advance Directives Advance Directives Directive Response Recorded Date/Time Does the patient have an advance directive? No 05/27/17 4:15pm If yes, is advance directive on file with [facility]? No 05/27/17 4:15pm If not on file with [facility] will patient provide a copy? No 05/27/17 4:15pm 07/26/2018 [facility] Functional Status No Data Provided for This Section
--- OUTSIDE RECORDS SUMMARY | 2019-01-08 11:15 | XMS REPORT | Encounter Summary ---
Author Organization Unknown Address [address] [place] [address] Phone [phone] Care Team Providers Care Industrial Technologist Name Role Phone Dr. Ramonita Allan 3 [phone] Rick Jolly MD 114 [phone] Osvaldo Nugent 118 [phone] Jw Berrios MD (Endocrinology) 119 [phone] Archie Ward DPM 120 [phone] Travis Archuleta MD 129 [phone] [facility] 247 [phone] Reason for Visit Bilateral leg problem Instructions 1. Osteoarthritis of right knee joint orthopedic referral - *Please call the patient and make an appointment* PLEASE SEND BACK CONSULT NOTES TO [phone] home health referral tramadol 50 mg tablet 2. Type II diabetes mellitus uncontrolled True Metrix Glucose Test Strip 3. Pruritus of skin hydroxyzine HCl 25 mg tablet 4. Body mass index 25-29 - overweight learning about healthy weight 5. Overweight 6. Large prostate tamsulosin 0.4 mg capsule 7. Amputated big toe gabapentin 300 mg capsule 8. Lesion of nasal mucosa mupirocin 2 % topical ointment 9. End stage renal failure on dialysis Discussion Note: None recorded. Plan of Care Reminders Provider Appointments None recorded. Lab None recorded. Referral Orthopedic Referral 11/07/2018 [facility] 11/07/2018 [facility] Procedures None recorded. Surgeries None recorded. Imaging None recorded. Medications Name Start Date albuterol sulfate 2.5 mg/3 mL (0.083 %) solution for nebulization INHALE 3 ML 3 TIMES A DAY BY NEBULIZATION ROUTE NEEDED. apixaban 2.5 mg tablet Take 1 tablet twice a day by oral route. atorvastatin 80 mg tablet TAKE 1 TABLET BY MOUTH EVERYDAY AT BEDTIME carvedilol 3.125 mg tablet TAKE 1 TABLET BY MOUTH EVERYDAY AT BEDTIME clonidine as needed famotidine 20 mg tablet furosemide 40 mg tablet Take 1 tablet twice a day by oral route as needed. gabapentin 300 mg capsule Take 1 - 2 pills by mouth 1 hour before bed time for restless legs hydralazine 50 mg tablet TAKE 1 TABLET BY MOUTH EVERY 8 HOURS hydroxyzine HCl 25 mg tablet Take 1 tablet twice a day by oral route. isosorbide dinitrate 30 mg tablet TAKE 1 TABLET BY MOUTH EVERY DAY Lantus Solostar U-100 Insulin 100 unit/mL (3 mL) subcutaneous pen Inject 20 units every day by subcutaneous route in the morning. Levemir FlexTouch U-100 Insulin 100 unit/mL (3 mL) subcutaneous pen lorazepam 0.5 mg tablet Take 2 tablets 3 times a day by oral route for 10 days. medroxyprogesterone 5 mg tablet TAKE 1 TABLET [...] 1 CAPSULE(S) EVERY DAY BY ORAL ROUTE. tramadol 50 mg tablet TAKE 1 TABLET BY MOUTH EVERY 8 HOURS NEEDED True Metrix Glucose Test Strip Take 1 strip every day by miscell. route. Ultra Thin Lancets 31 gauge Take 1 each every day by miscell. route for 90 days. Xarelto 2.5 mg tablet Take 1 tablet twice a day by oral route. Medications Administered None recorded. Vitals Height Weight BMI Blood Pressure 5 ft 9 in 183.4 lbs 27.1 kg/m2 106/50 mm[Hg] Lab Results None recorded. Allergies Code [...] not available Vaccine List Vaccine Type influenza, high dose seasonal 12/26/20180.5 mL influenza, unspecified formulation 02/09/2017 pneumococcal conjugate PCV 13 02/09/2017 pneumococcal polysaccharide PPV23 08/08/20180.5 mL Tdap 04/11/2015 Social History Tobacco Smoking Status Former Smoker (1 PPW) Past Encounters 12/26/2018 Body Mass Index 25-29 - Overweight; Type II Diabetes Mellitus Uncontrolled; Hyperlipidemia; Benign Prostatic Hyperplasia; Essential Hypertension; Influenza Vaccination; Generalized Anxiety Disorder; Tinea Cruris; Visual Disturbance; Hematochezia; Restless Legs Ramonita Allan MD: [address] [place] [phone], Ph. 11/21/2018 Hospital Patient; Visual Disturbance; History of Cerebrovascular Accident Ramonita Allan MD: [address] [place] [phone], Ph. 11/07/2018 Osteoarthritis of Right Knee Joint; Type II Diabetes Mellitus Uncontrolled; Pruritus of Skin; Body Mass Index 25-29 - Overweight; Overweight; Large Prostate; Amputated Big Toe; Lesion of Nasal Mucosa; End Stage Renal Failure on Dialysis Ramonita Allan MD: [address] [place] [phone], Ph. 10/10/2018 Peripheral Vascular Disease; End Stage Renal Failure on Dialysis; Type II Diabetes Mellitus Uncontrolled; Congestive Heart Failure; Amputated Big Toe; Body Mass Index 25-29 - Overweight; Pruritus of Skin; Onychomycosis of Toenails; Hospital Patient; Coronary Arteriosclerosis; Open Wound of Lower Leg Ramonita Allan MD: [address] [place] [address], Ph. History of Present Illness Note:68yo male presents with for follow-up of chronic conditions. Since last visit, pt had right leg angiogram with stents & angioplasty on October [address] Matthews. Pt had left leg angiogram with stents & angioplasty on November [address] Matthews. Saw Dr Matthews on October 26 for f/u and he was worried about "stroke in right leg" and recommended home PT and orthopedist for the knees.<div>Pt went to [facility] ER on Tue11/03/18 for bilateral knee pain R>L. Had bilateral knee XR & told he had arthritis in both knees.< /div><div>Saw Dr Matthews earlier this morning & again recommended ortho & PT.</div><div>Needs refill of tramadol from ER.</div><div>Has had trouble with bleeding from dialysis fistula since yesterday's appt & Dr Matthews decreased Xarelto from 10mg to 5mg qd. If bleeding continues will need to stop Xarelto.< /div><div>Pt very sleepy today from tramadol.</div><div>Having trouble with irritation in left nose - itchy & bleeding. bought nasal saline today.< /div> Review of Systems:ROS as noted in the [...] no hallucinations Endocrine: Endocrine: fatigue Physical Exam Lower Leg, General Adult Exam (male) Reported By: Patient Constitutional: Level of Distress: chronically ill. Ambulation: limited ambulation Gait and Station: Appearance: ambulates with walker, irregular gait; unsteady, weak Cardiovascular System: Heart Auscultation: RRR, normal S1, normal S2, murmur, HAL. Neck vessels: no carotid bruits. Pulses including femoral / pedal: diminished; AV shunt left antecubital fossa for dialysis with palpable flowDefibrillator right upper chest Neurologic: Sensation: abnormal; diabetic neuropathy, great toes amputated. Reflexes: diminished Psychiatric: Mood and Affect: active and alert, normal affect. Insight: poor insight Fitness Coach: Fitness Coach: present; with today ENMT: Oropharynx: moist mucous membranes Neck: Neck: supple. Lymph Nodes: no cervical LAD Lungs: Respiratory effort: no dyspnea. Auscultation: breath sounds normal, CTA except as noted, no wheezing, no rales/crackles Musculoskeletal:: Extremities: no edema
--- NOTE | 2019-01-08 12:22 | Diagnostic Imaging Report ---
CT BRAIN WO HISTORY: 68-year-old male status post fall COMPARISON: CT brain without contrast 01/01/2019, 12/31/2018 TECHNIQUE: Noncontrast axial scans were obtained from skull base to the vertex. Coronal and sagittal reconstructions obtained from the axial data. One or more of the following dose reduction techniques were used: Automated exposure control, adjustment of the mA and/or kV according to patient size, and/or utilization of iterative reconstruction technique. DISCUSSION: Scalp/Skull: Unremarkable. Brain sulci: Mildly prominent. Ventricles: Mild compensatory dilatation. No hydrocephalus. Extra-axial spaces: No masses or fluid collections. Parenchyma: Multiple punctate hypodensities in the supratentorial white matter are small vessel ischemic changes. Age-indeterminate lacunar infarct in the central lia is unchanged. No mass, hemorrhage, or large vascular territory acute infarct. Dural sinuses: No abnormal densities. Vessels: Atherosclerosis within bilateral carotid siphons, external carotid artery branches and left intradural vertebral artery. Sellar/Suprasellar region: Intact. No masses. Skull base: Intact. Incidental findings: Mild mucosal thickening of the ethmoid air cells. Bilateral cataract surgery changes. IMPRESSION: 1. No acute intracranial abnormalities. 2. Mild chronic microvascular ischemic changes and chronic pontine lacunar infarct, unchanged from comparison studies. 3. Mild generalized atrophy. This preliminary report was dictated by Dr. Azeem Felipe M.D. neuroradiology fellow at 1221 hours on 01/08/2019. Signed by: DR Haroon Viera M.D. on 01/08/2019 1:48 PM
--- NOTE | 2019-01-08 12:44 | Diagnostic Imaging Report ---
CT CERVICAL SPINE WO HISTORY: 68-year-old male status post fall COMPARISON: CT cervical spine 12/31/2018 TECHNIQUE: CT of the cervical spine without contrast. Sagittal and coronal reformations were created. One or more of the following dose reduction techniques were used: Automated exposure control, adjustment of the mA and/or kV according to patient size, and/or utilization of iterative reconstruction technique. FINDINGS: Cervical lordosis is preserved. There is no scoliosis or subluxation. No fractures, compression deformity, or destructive osseous lesions are seen. Multilevel degenerative disc changes with mild spinal canal stenosis at C3-C4 and C4-C5 secondary to posterior disc osteophyte complexes. Moderate facet arthropathy in the mid cervical spine. Bilateral moderate foraminal stenosis at C3-C4 and C4-C5 secondary to uncovertebral and facet arthrosis. The craniocervical junction is intact. No gross spinal canal masses are seen. The paravertebral and paraspinal soft tissues are unremarkable. No apical pneumothoraces are seen. Calcification of the bilateral carotid bulbs is similar to the comparison CT. IMPRESSION: 1. No acute osseous abnormalities. 2. Multilevel degenerative changes as described above. This preliminary report was issued by Dr. Azeem Felipe M.D. neuroradiology fellow at 1243 hours on 01/08/2019. Signed by: DR Haroon Viera M.D. on 01/08/2019 1:51 PM
[2019-01-08 13:14] VITALS: BP 114/52
== END 2019-01-08 13:15 | disposition home or self-care (01) ==
LOC: ER 11:06
DX: S00.83XA Contusion of other part of head, initial encounter (principal); W18.30XA Fall on same level, unspecified, initial encounter; Y92.008 Other place in unspecified non-institutional (private) residence as the place of occurrence of the external cause; I10 Essential (primary) hypertension; E78.5 Hyperlipidemia, unspecified; K21.9 Gastro-esophageal reflux disease without esophagitis; N28.9 Disorder of kidney and ureter, unspecified
CPT/HCPCS: 70450; 72125; 99283